=== PATIENT | male | born 1940 | race Caucasian/White ===

== ENCOUNTER → 2017-06-18 17:29 | Outpatient (CLI) | payer MEDICARE, OTHER, SELFPAY | PROVIDERS: Family Provider Family Medicine Geriatric Medicine; PCP Family Medicine Geriatric Medicine; Visit Provider Family Medicine Geriatric Medicine | DX: R50.9 Fever, unspecified (principal) | CPT/HCPCS: 87633 ==

== ENCOUNTER → 2017-07-08 13:40 | Outpatient (CLI) | payer MEDICARE, SELFPAY ==
--- NOTE | 2017-07-08 13:59 | EKG12_ITS ---
Test Reason : CP Blood Pressure : / mmHG Vent. Rate : 081 BPM Atrial Rate : 081 BPM P-R Int : 212 ms QRS Dur : 084 ms QT Int : 356 ms P-R-T Axes : 049 -21 050 degrees QTc Int : 413 ms Sinus rhythm with 1st degree A-V block with occasional Premature ventricular complexes Minimal voltage criteria for LVH, may be normal variant Borderline ECG Confirmed by FAITH BEAUCHAMP ([id number]), general expeditor WOODY FORD ([id number] on 07/08/2017 2:43:04 PM Referred By: Kain Bhakta Confirmed By:FAITH BEAUCHAMP
== END ==
PROVIDERS: Family Provider Family Medicine Geriatric Medicine; PCP Family Medicine Geriatric Medicine; Visit Provider Family Medicine Geriatric Medicine
DX: R07.9 Chest pain, unspecified (principal)
CPT/HCPCS: 93005

== ENCOUNTER → 2017-07-08 14:05 | Outpatient (CLI) | payer MEDICARE, SELFPAY ==
[2017-07-08 17:22] LABS: Absolute Lymphocyte Count 1.62 X10^3/ul (0.83-4.51); Absolute Neutrophil Count 4.8 X10^3/uL (2.0-7.7); Basophil# 0.03 X10^3/uL; Basophil% 0.4 % (0-1); Eosinophil# 0.22 X10^3/uL; Eosinophils% 3.1 % (0-5); Hematocrit 36.9 % (40-54); Hemoglobin 12.3 g/dl (13.0-16.5); Lymphocyte # 1.62 X10^3/ul (4.0); Mean Corp Hgb Conc 33.3 g/gl (32-36); Mean Corpuscular Hgb 30.8 pg (27.0-32.0); Mean Corpuscular Volume 92.3 fL (80-94); Mean Platelet Vol. 10.6 fl (6.2-12.0); Monocyte# 0.36 X10^3/uL; Monocyte% 5.1 % (0-10); Neutrophil % 68.3 % (47-70); Platelet Count 135 K/mm3 (150-450); RBC Distribution Width CV 12.8 % (11.6-14.6); RBC Distribution Width SD 41.9 fl (35.1-43.9)
[2017-07-08 17:31] LABS: POSITIVE COUNT NO; POSITIVE DIFFERENTIAL NO; POSITIVE MORPHOLOGY NO; Vitamin D,25 Hydroxy 45.8 ng/mL (19.95-100.01)
[2017-07-08 17:42] LABS: ALB/GLOB Ratio 0.9 RATIO (0.9-2.4); AST(SGOT) 16 U/L (15-37); Alanine Aminotransfer ALT/SGPT 23 U/L (16-61); Albumin, Serum 3.4 g/dL (3.2-5.0); Alkaline Phosphatase 72 U/L (45-117); Anion Gap 8 (5-15); BUN 21 mg/dL (7-18); BUN/Creat Ratio 15.8 RATIO (10-20); Calcium,Total 8.3 mg/dL (8.5-10.1); Chloride 102 mmol/L (98-107); Creatinine, Serum 1.33 mg/dL (0.70-1.30); EST Glomerular Filtration Rate 55 mL/min (>60); Est Glom Filt Rate - Afr Amer 67 mL/min (>60); Globulin 3.9 g/dL (2.2-4.2); Glucose 377 mg/dL (74-106); Potassium 4.4 mmol/L (3.5-5.1); Protein, Total 7.3 g/dL (6.4-8.2); Sodium Level 135 mmol/L (136-145); Thyroid Stim Hormone (TSH) 2.45 uIU/mL (0.358-3.74)
== END ==
PROVIDERS: Family Provider Family Medicine Geriatric Medicine; PCP Family Medicine Geriatric Medicine; Visit Provider Family Medicine Geriatric Medicine
DX: E11.9 Type 2 diabetes mellitus without complications (principal); I10 Essential (primary) hypertension; E55.9 Vitamin D deficiency, unspecified
CPT/HCPCS: 36415; 80053; 82306; 84443; 85025; 93005

== ENCOUNTER → 2018-03-18 09:37 | Outpatient (CLI) | payer MEDICARE, SELFPAY ==
[2018-03-18 12:40] LABS: Absolute Lymphocyte Count 1.24 X10^3/ul (0.83-4.51); Absolute Neutrophil Count 3.2 X10^3/uL (2.0-7.7); Basophil# 0.02 X10^3/uL; Basophil% 0.4 % (0-1); Eosinophil# 0.17 X10^3/uL; Eosinophils% 3.4 % (0-5); Hematocrit 36.6 % (40-54); Hemoglobin 11.9 g/dl (13.0-16.5); Lymphocyte # 1.24 X10^3/ul (4.0); Lymphocyte % 24.8 % (19-41); Mean Corp Hgb Conc 32.5 g/gl (32-36); Mean Corpuscular Volume 95.3 fL (80-94); Mean Platelet Vol. 10.3 fl (6.2-12.0); Monocyte# 0.35 X10^3/uL; Neutrophil # 3.22 X10^3/uL (2.7-7.7); Neutrophil % 64.4 % (47-70); Platelet Count 148 K/mm3 (150-450); RBC Distribution Width SD 46.8 fl (35.1-43.9); Red Blood Count 3.84 M/mm3 (4.6-6.2)
[2018-03-18 12:44] LABS: POSITIVE COUNT NO; POSITIVE DIFFERENTIAL NO; POSITIVE MORPHOLOGY NO
[2018-03-18 13:00] LABS: Vitamin D,25 Hydroxy 52.9 ng/mL (29.95-100.01)
[2018-03-18 13:02] LABS: ALB/GLOB Ratio 0.9 RATIO (0.9-2.4); AST(SGOT) 24 U/L (15-37); Alanine Aminotransfer ALT/SGPT 24 U/L (16-61); Albumin, Serum 3.6 g/dL (3.2-5.0); Alkaline Phosphatase 65 U/L (45-117); Anion Gap 7 (5-15); BUN 15 mg/dL (7-18); BUN/Creat Ratio 11.2 RATIO (10-20); Calcium,Total 8.2 mg/dL (8.5-10.1); Chloride 108 mmol/L (98-107); Cholesterol 101 mg/dL (200); Creatinine, Serum 1.34 mg/dL (0.70-1.30); EST Glomerular Filtration Rate 55 mL/min (>60); Est Glom Filt Rate - Afr Amer 66 mL/min (>60); Globulin 3.8 g/dL (2.2-4.2); Glucose 188 mg/dL (74-106); High Density Lipoprotein 36 mg/dL; Potassium 4.2 mmol/L (3.5-5.1); Protein, Total 7.4 g/dL (6.4-8.2); Sodium Level 142 mmol/L (136-145); Thyroid Stim Hormone (TSH) 2.56 uIU/mL (0.358-3.74); Triglycerides 116 mg/dL; Very Low Density Lipoprotein 23 mg/dL (5-40)
== END ==
PROVIDERS: Family Provider Family Medicine Geriatric Medicine; PCP Family Medicine Geriatric Medicine; Visit Provider Family Medicine Geriatric Medicine
DX: E11.9 Type 2 diabetes mellitus without complications (principal); E55.9 Vitamin D deficiency, unspecified; E78.49 Other hyperlipidemia; F52.8 Other sexual dysfunction not due to a substance or known physiological condition; I10 Essential (primary) hypertension
CPT/HCPCS: 36415; 80053; 80061; 82306; 84403; 84443; 85025

== ENCOUNTER → 2018-07-13 09:47 | Outpatient (CLI) | payer MEDICARE, SELFPAY ==
[2018-07-13 11:02] LABS: Absolute Lymphocyte Count 1.59 X10^3/ul (0.83-4.51); Absolute Neutrophil Count 3.4 X10^3/uL (2.0-7.7); Basophil# 0.02 X10^3/uL; Basophil% 0.4 % (0-1); Eosinophil# 0.22 X10^3/uL; Eosinophils% 3.9 % (0-5); Hematocrit 36.6 % (40-54); Hemoglobin 12.1 g/dl (13.0-16.5); Lymphocyte # 1.59 X10^3/ul (4.0); Lymphocyte % 28.2 % (19-41); Mean Corp Hgb Conc 33.1 g/gl (32-36); Mean Corpuscular Hgb 30.6 pg (27.0-32.0); Mean Corpuscular Volume 92.4 fL (80-94); Mean Platelet Vol. 10.3 fl (6.2-12.0); Monocyte# 0.39 X10^3/uL; Monocyte% 6.9 % (0-10); Neutrophil # 3.42 X10^3/uL (2.7-7.7); Neutrophil % 60.6 % (47-70); Platelet Count 159 K/mm3 (150-450); RBC Distribution Width CV 13.6 % (11.6-14.6); RBC Distribution Width SD 45.9 fl (35.1-43.9); Red Blood Count 3.96 M/mm3 (4.6-6.2); White Blood Count 5.6 K/mm3 (4.4-11.0)
[2018-07-13 11:03] LABS: POSITIVE COUNT NO; POSITIVE DIFFERENTIAL NO; POSITIVE MORPHOLOGY NO
[2018-07-13 11:25] LABS: ALB/GLOB Ratio 0.9 RATIO (0.9-2.4); AST(SGOT) 22 U/L (15-37); Alanine Aminotransfer ALT/SGPT 20 U/L (16-61); Albumin, Serum 3.6 g/dL (3.2-5.0); Alkaline Phosphatase 78 U/L (45-117); Anion Gap 7 (5-15); BUN 21 mg/dL (7-18); BUN/Creat Ratio 15.3 RATIO (10-20); CPK Total, Creatine Kinase 184 U/L (39-308); Calcium,Total 8.1 mg/dL (8.5-10.1); Chloride 106 mmol/L (98-107); Cholesterol 100 mg/dL (200); Creatinine, Serum 1.37 mg/dL (0.70-1.30); EST Glomerular Filtration Rate 53 mL/min (>60); Est Glom Filt Rate - Afr Amer 65 mL/min (>60); Globulin 3.9 g/dL (2.2-4.2); Glucose 118 mg/dL (74-106); High Density Lipoprotein 40 mg/dL; Potassium 4.1 mmol/L (3.5-5.1); Protein, Total 7.5 g/dL (6.4-8.2); Sodium Level 138 mmol/L (136-145); Thyroid Stim Hormone (TSH) 2.68 uIU/mL (0.358-3.74); Triglycerides 68 mg/dL; Very Low Density Lipoprotein 14 mg/dL (5-40)
[2018-07-13 11:30] LABS: Vitamin D,25 Hydroxy 45.8 ng/mL (29.95-100.01)
[2018-07-14 12:22] LABS: Myoglobin, Serum 88 ng/mL (28-72)
== END ==
PROVIDERS: Family Provider Family Medicine Geriatric Medicine; PCP Family Medicine Geriatric Medicine; Visit Provider Family Medicine Geriatric Medicine
DX: R07.9 Chest pain, unspecified (principal)
CPT/HCPCS: 36415; 80053; 80061; 82306; 82550; 83874; 84403; 84443; 84484; 85025

== ENCOUNTER 2018-07-13 10:56 | Observation (INO) | payer MEDICARE, SELFPAY ==
[2018-07-13] VITALS (15 sets, daily range): BP systolic 143–183; BP diastolic 74–90; PULSE 62–104; RESP 14–22; TEMP 36.5–36.7; O2SAT 94–98; BMI 32.8; BMI 33.0; BMI 32.9
--- NOTE | 2018-07-13 11:30 | RAD_ITS ---
STUDY: X-RAY CHEST REASON FOR EXAM: Male, 77 years old. Chest pressure and chest pain. TECHNIQUE: Single AP portable view of the chest. COMPARISON: Comparison is made with prior study July 23, 2015. FINDINGS: EKG electrodes are seen. Scattered calcified granulomas. Findings suggest some mild scarring at the lung bases. There is no demonstrated pleural abnormality. There is moderate cardiac enlargement. Normal mediastinum and shiva. Normal visualized pulmonary arteries. There is atherosclerotic calcification of the aortic arch with tortuosity. Normal visualized thoracic spine. Normal visualized ribs, clavicles, and shoulders. There is no demonstrated abnormality of the visualized soft tissue structures of the upper abdomen. RAD/Chest 1 View (Portable) IMPRESSION: Cardiomegaly. Findings suggest mild stable bibasilar atelectasis. Electronically Signed: Berlin Webb, at 12:52 EST , Service support ,
--- NOTE | 2018-07-13 11:30 | EKG12_ITS ---
Test Reason : EKGCHANGES Blood Pressure : / mmHG Vent. Rate : 066 BPM Atrial Rate : 066 BPM P-R Int : 182 ms QRS Dur : 082 ms QT Int : 402 ms P-R-T Axes : 012 -25 039 degrees QTc Int : 421 ms Sinus rhythm with occasional Premature ventricular complexes Minimal voltage criteria for LVH, may be normal variant Septal infarct , age undetermined Abnormal ECG Confirmed by MAIK EVANS, ROLANDO ([id number]), editorial clerk LANDRY BAKER ([id number]) on 07/15/2018 3:49:11 PM Referred By: Afsaneh Kapoor Confirmed By:ROLANDO PLEITEZ MD
--- NOTE | 2018-07-13 11:42 | ED.VISSUMM ---
- ER Visit Summary Date of Service: 07/13/18 Chief Complaint: Chest pain History of Present Illness: The patient is a 77 M presenting with chest pain. This has been intermittent pressure since last night. Pressure is substernal. At worst it is 5 out of 10. Currently 0 out of 10. He has associated nausea and lightheadedness. He has a history of hypertension, diabetes, hypercholesterolemia, previous smoking. He had a heart cath 20 years ago which was unremarkable. He was seen by his primary care physician today and sent to the ED for further evaluation. Physical Examination: Vitals are stable. Patient is afebrile. Alert no acute distress. HEENT exam is unremarkable. Neck is supple. Lungs are wheezing bilaterally. Heart is regular rate and rhythm. Abdomen is soft nontender nondistended. Extremities are unremarkable. Skin is warm and dry. No focal neurologic deficit. Remainder of exam is unremarkable. Emergency Department Course and Treatment: Patient was given aspirin on arrival. EKG is sinus rate of 66 with LVH. He was given albuterol, Atrovent aerosol. CBC normal except for hemoglobin 12.1. Chemistries show BUN 21, creatinine 1.37, glucose 118. Troponin is negative. Chest x-ray shows cardiomegaly, atelectasis. Patient is pain-free on reevaluation. Will discuss with hospitalist for observation. Disposition: Observation Impression: Chest pain This note was generated with [employer] dictation software. It may contain incorrect words, spelling, and punctuation that were not noted in review of the chart prior to signing ED Disposition - Plan for ED Patient: Referrals: Kain Bhakta Chi, MD [Primary Care Provider] -
[2018-07-13] MEDS: Aspirin 81 MG TAB.CHEW 324 MG PO (11:44)
--- NOTE | 2018-07-13 11:49 | EKG12_ITS ---
Test Reason : CHEST PRESSURE Blood Pressure : / mmHG Vent. Rate : 070 BPM Atrial Rate : 070 BPM P-R Int : 178 ms QRS Dur : 092 ms QT Int : 402 ms P-R-T Axes : 014 -26 041 degrees QTc Int : 434 ms Sinus rhythm with occasional and consecutive Premature ventricular complexes Minimal voltage criteria for LVH, may be normal variant Abnormal ECG Confirmed by MAIK EVANS, ROLANDO ([id number]), content editor LANDRY BAKER ([id number]) on 07/15/2018 3:49:38 PM Referred By: Afsaneh Kapoor Confirmed By:ROLANDO PLEITEZ MD
[2018-07-13] MEDS: Ipratropium/Albuterol Sulfate 3 ML AMPUL.NEB INHALATION ×2 (12:12→18:48)
--- NOTE | 2018-07-13 13:20 | PCM.HP.STD ---
Problem List (1) COPD exacerbation Status: Acute (2) Chest pain Status: Acute Qualifiers: Chest pain type: unspecified Qualified Code(s): R07.9 - Chest pain, unspecified (3) Former tobacco use Status: Chronic (4) HTN (hypertension) Status: Chronic Qualifiers: Hypertension type: essential hypertension Qualified Code(s): I10 - Essential (primary) hypertension (5) HLD (hyperlipidemia) Status: Chronic Qualifiers: Hyperlipidemia type: pure hypercholesterolemia Qualified Code(s): E78.00 - Pure hypercholesterolemia, unspecified; E78.0 - Pure hypercholesterolemia (6) Diabetes mellitus, type II Status: Chronic Qualifiers: Diabetes mellitus exterminator helper insulin use: without exterminator helper use Diabetes mellitus complication status: with unspecified complications Qualified Code(s): E11.8 - Type 2 diabetes mellitus with unspecified complications (7) Obesity (BMI 30.0-34.9) Status: Chronic (8) CKD (chronic kidney disease) stage 3, GFR 30-59 ml/min Status: Chronic (9) Anemia Status: Chronic Qualifiers: Anemia type: unspecified type Qualified Code(s): D64.9 - Anemia, unspecified History of Present Illness Date of Admission: 07/13/18 Chief Complaint: Chest pain, Recent Mild URI The patient is a 77 y/o M w/ PMHx: HTN, HLD, Obesity, Former Tobacco use, Diabetes mellitus type II, CKD stage III, Chronic Anemia who presents to the [facility] ED on 07/13/18 with history of recent mild URI with rhinorrhea and per daughter evidence of some mild increased work of breathing occasionally with wheezing noted on initial ED evaluation in addition to complaints of midsternal chest pressure with associated nausea as well as lightheadedness with onset since the evening prior noted to be intermittent, lasting minutes with no clear alleviating or aggravating factors prompting eventual ED presentation. Patient noted chest discomfort rated at its worst 4-5 out of 10 and upon ED evaluation had resolved. In the ED workup included T 98.1, heart rate 67, BP 155/90, respiratory rate 16, 95% on room air, CBC with W BC 5.6, hemoglobin 12.1, platelet 159 without market shift, BMP with BUN/Cr 21/1.37, Nikita 118, troponin < 0.015, EKG w/ EKG with T wave flattening minimally, CXR without acute cardiopulmonary findings. In the ED patient sap pp consultant normal saline, Solu-Medrol 125 mg IV x1, aspirin. (10) DVT Prophylaxis: SCDs, heparin. Past Medical History Past Medical History (Chronic Problems): Chronic Problems Former tobacco use (Chronic) HTN (hypertension) (Chronic) HLD (hyperlipidemia) (Chronic) Diabetes mellitus, type II (Chronic) Obesity (BMI 30.0-34.9) (Chronic) CKD (chronic kidney disease) stage 3, GFR 30-59 ml/min (Chronic) Anemia (Chronic) Former cigarette smoker (Chronic) painful soft tissue mass back (Chronic) 1.5 cm infected painful soft tissue mass right upper lateral back by the shoulder, and 1.5 cm painful soft tissue mass right posterior axillary/lateral back area, superior, and 1 cm painful soft tissue mass right posterior axillary/lateral back area, inferior. Allergies No Known Allergies Allergy (Verified 07/13/18 11:03) Home Medications: Ambulatory Orders Medication Instructions Recorded Atorvastatin Calcium [Lipitor] 40 mg PO QHS 01/31/15 Carvedilol [Coreg (Beta Marisa)] 3.125 mg PO BID 01/31/15 Cyanocobalamin (Vitamin B-12) 500 mcg PO DAILY PRN PRN 01/31/15 [Vitamin B-12] Glimepiride [Amaryl] 4 mg PO DAILY 01/31/15 Isosorbide Mononitrate [Imdur] 60 mg PO DAILY 01/31/15 Losartan Potassium [Cozaar] 25 mg PO DAILY 01/31/15 Terazosin HCl [Hytrin] 2 mg PO QHS 01/31/15 Cholecalciferol (Vitamin D3) 2,000 unit PO DAILY 07/13/18 [Vitamin D3] Famotidine 40 mg PO DAILY 07/13/18 Gabapentin [Neurontin] 300 mg PO QHS 07/13/18 Melatonin 10 mg PO DAILY PRN 07/13/18 Surgical History: - - Fatty tumor resection on the posterior neck, appendectomy. Psychiatric History: No pertinent psych hx Lives: Alone Smoking Status: Former smoker - Patient quit smoking approximately 20-25 years prior but prior to this had smoked approximately 1.5 pack/day at least since use. Tobacco Use: Non-smoker Alcohol: None Drugs: None - *Family History Maternal History Items: - - Patient notes a maternal and paternal family history of heart disease and diabetes. Paternal History Items: - - Patient notes a maternal and paternal family history of heart disease and diabetes. Review of Systems Constitutional: Reports: Malaise, Weakness, Fatigue. Denies: Chills, Fever, Weight Change HEENT: Reports: Nasal Congestion, Post Nasal Drip. Denies: Head Aches, Sinus Congestion, Sinus Drainage Cardiovascular: Reports: Chest Pain, Chest Pressure. Denies: Palpitations Respiratory: Reports: Shortness of Breath, Wheezing. Denies: Cough, Shortness of breath at rest, Shortness of breath upon exertion, Sputum production Gastrointestinal: Reports: Nausea. Denies: Abdominal Pain, Vomiting Genitourinary: Denies: Dysuria Musculoskeletal: Denies: Joint Pain, Joint Tenderness Skin: Denies: Rash, Wounds Neurological: Denies: Numbness, Tingling, Focal weakness Psychiatric: Denies: Anxiety, Depression, Homicidal Ideations, Suicidal Ideations Hematologic/ Lymphatic: Reports: Anemia. Denies: Easy Bruising, Easy Bleeding VTE Information - Inpt Only VTE Present on Admission: No VTE Mechan Device Prophylaxis: SCD's VTE Pharm Prophylaxis ordered?: Yes Patient Problems: Active and Suspected Problems COPD exacerbation (Acute) Chest pain (Acute) Subjective: Seated upright in the ED bed, notes improved breathing following aerosols in the ED, currently denies chest pain. Objective: Physical Examination: General: awake, alert, oriented x 3 and cooperative, seated upright in the ED bed in no apparent distress currently, notes chest pain resolved currently, dyspnea improved. Skin: normal color, turgor, no icterus, cyanosis. HEENT: AT/NC, EOMI, PERRLA, mildly dry MM, no carotid bruits or JVD noted. Lungs: Diminished BS bases, mild end expiratory wheeze, mildly increased effort, notes improved since initial presentation, no rales or ronchi. Heart: Regular rate and rhythm; no gallop, rub audible. Abdomen: soft, obese, NTTP, ND, normal BS, no HSM. Extremities: no cyanosis, clubbing, or edema. Neurological: patient awake, alert, oriented x 3; cognitive function intact; pupils equally reactive to light and accomodation; cranial nerves II-XII grossly normal, moving all 4 extremities, no focal deficits, strength mildly to moderately globally decreased secondary to acute presentation. Psychiatric: affect appears mildly fatigued, no acute evidence of depressive or anxiety feelings. - Physical Exam Vital Signs Temp Pulse Resp BP Pulse Ox 98.1 F 62 17 183/84 H 95 07/13/18 10:57 07/13/18 13:16 07/13/18 13:16 07/13/18 13:16 07/13/18 13:16 Oxygen Flow Rate (L/min) 2 Oxygen Delivery Method Nasal Cannula Weight: 203 lb 11.314 oz Body Mass Index (BMI) 32.8 Laboratory Tests Past 24 Hrs 07/13/18 11:50 Troponin I < 0.015 Assessment/Plan All Active Problems COPD exacerbation (Acute) Chest pain (Acute) The patient is a 77 y/o M w/ PMHx: HTN, HLD, Obesity, Former Tobacco use, Diabetes mellitus type II, CKD stage III, Chronic Anemia who presents to the [facility] ED on 07/13/18 with history of recent mild URI with rhinorrhea and per daughter evidence of some mild increased work of breathing occasionally with wheezing noted on initial ED evaluation in addition to complaints of midsternal chest pressure with associated nausea as well as lightheadedness with onset since the evening prior noted to be intermittent, lasting minutes with no clear alleviating or aggravating factors prompting eventual ED presentation. (1) Chest Pain: ED workup included T 98.1, heart rate 67, BP 155/90, respiratory rate 16, 95% on room air, CBC with W BC 5.6, hemoglobin 12.1, platelet 159 without market shift, BMP with BUN/Cr 21/1.37, Nikita 118, troponin < 0.015, EKG w/ EKG with T wave flattening minimally, CXR without acute cardiopulmonary findings. Will admit to PCU, place on a monitored bed to assure no acute myocardial infarction with serial cardiac enzymes and EKGs. If remains clinically appropriate with unremarkable repeat EKGs and enzymes will proceed with AM cardiac stress testing. As noted mild #2, if worsens may need to defer stress testing. ASA, NG, morphine. FLP in AM. Mag pending. (2) Suspected Possible Acute on chronic COPD exacerbation versus Acute Viral Bronchitis w/ recent URI sxs: CXR w/ chronic changes, CBC on admission w/ WBC 5.6 without shift, afebrile, wheezing in the ED, improved w/ aerosols, prolonged heavy tobacco use history. Will maintain on oxygen with wean as tolerated to room air, continue ATC duonebs, PRN albuterol, prednisone burst, HOB, IS parameters, requested respiratory viral panel and sputum cultures. (3) Diabetes mellitus type II: Hold oral home regimen, HgbA1c pending, ADA diet, accu checks w/ ISS, nutrition consulted for education and teaching. (4) Chronic Kidney Disease Stage III: Admission BUN/Cr 21/1.37, baseline renal function 1.3, repeat BMP in AM. (5) Anemia, Normocytic, Chronic: Admission Hgb 12.1, baseline appears similar, unclear etiology, defer to outpatient. (6) Hypertension: Continue home regimen including Coreg, isosorbide, losartan, PRN hydralazine. (7) Hyperlipidemia: Continue home statin regimen. AM FLP. (8) Obesity: Weight loss and lifestyle changes encouraged, nutrition consulted for education and teaching. (9) Former Tobacco use: Encouraged continued tobacco cessation. (10) DVT Prophylaxis: SCDs, heparin. Code Visit Inpatient E&M: 36097 Init Hosp L3
--- NOTE | 2018-07-13 13:28 | NURSING ---
105 COPD EXAC, CP
--- NOTE | 2018-07-13 13:55 | CASEMGMT ---
Addendum entered by Trinity Will 07/13/18 14:06: [facility] and [facility] MIRTHA Avery Original Note: RN CM Assessment Introduced role of RN CM to patient. Patient is alert, oriented and able to participate in RN CM Assessment. Care providers, pharmacy, and demographics verified. Presentation:Admitted for COPD Exacerbation, CP. CC: CP, N/V/Lightheaded. PCP: Dr Kain Bhakta Specialists: None Preferred Pharmacy: [facility] Insurance: [employer] Medicare PPO Prescription Benefit: Yes LNOK: Gaye Schuster Living Arrangements: Patient lives alone on ground level apartment. Independent with ADL's and ambulation. Daughter Mariely lives near which can assist in future care needs if needed, she works at [employer]. Transportation: Patient drives and drove to hospital, plans to drive self on DC. DME: Denies DME and states no preference to DME Company. HHC: Denies past HH, States has had [facility] send a field nurse to his home in the past. Denies preference on HH Agency. SNF: Denies past and states no preference on facility. DC PLAN: Home with possible nebulizer. MIRTHA Avery
[2018-07-13] MEDS: MethylPREDNISolone 125 MG/2 ML Vial IV (14:12)
--- NOTE | 2018-07-13 15:24 | EKG12_ITS ---
Test Reason : CP Blood Pressure : / mmHG Vent. Rate : 064 BPM Atrial Rate : 064 BPM P-R Int : 228 ms QRS Dur : 086 ms QT Int : 398 ms P-R-T Axes : 041 -24 040 degrees QTc Int : 410 ms Sinus rhythm with 1st degree A-V block with occasional Premature ventricular complexes Moderate voltage criteria for LVH, may be normal variant Borderline ECG When compared with ECG of 08-JUL-2017 14:09, No significant change was found Confirmed by MAIK EVANS, ROLANDO ([id number]), newspaper copy editor LANDRY ABKER ([id number]) on 07/15/2018 4:01:03 PM Referred By: Afsaneh Kapoor Confirmed By:ROLANDO PLEITEZ MD
[2018-07-13 15:58] LABS: Magnesium 1.9 mg/dL (1.6-2.6)
[2018-07-13 16:13] LABS: Hemoglobin A1c 6.4 % (4.2-6.3)
[2018-07-13 17:46] LABS: Bedside Glucose 152 mg/dL (70-110)
[2018-07-13] MEDS: 0.9% NaCl Peripheral Flush Adult/Peds IV (20:39)
[2018-07-13] MEDS: Atorvastatin Calcium 40 MG Tablet PO (22:32)
[2018-07-13] MEDS: Gabapentin 300 MG Capsule PO (22:32)
[2018-07-13] MEDS: Carvedilol 3.125 MG TABLET PO (22:32)
[2018-07-13] MEDS: Acetaminophen 325 MG Tablet 650 MG PO (22:34)
[2018-07-13] MEDS: Heparin Injection (Vial) 5,000 UNIT/ML VIAL 5000 UNIT SC (22:34)
[2018-07-13] MEDS: MELATONIN 10 MG TABLET PO (22:34)
[2018-07-13 22:50] LABS: Bedside Glucose 358 mg/dL (70-110)
[2018-07-14] VITALS (10 sets, daily range): BP systolic 157–180; BP diastolic 73–107; PULSE 75–91; RESP 18; TEMP 36.4–37; O2SAT 93–95
[2018-07-14] MEDS: 0.9% Normal Saline 1,000 ML 100 ML IV (00:28)
[2018-07-14] MEDS: hydrALAZINE 20 MG/ML Vial 10 MG IV ×2 (01:26→06:20)
[2018-07-14 05:23] LABS: Hematocrit 38.7 % (40-54); Hemoglobin 12.7 g/dl (13.0-16.5); Mean Corp Hgb Conc 32.8 g/gl (32-36); Mean Corpuscular Hgb 30.6 pg (27.0-32.0); Mean Corpuscular Volume 93.3 fL (80-94); Platelet Count 162 K/mm3 (150-450); RBC Distribution Width SD 43.3 fl (35.1-43.9); Red Blood Count 4.15 M/mm3 (4.6-6.2); White Blood Count 8.9 K/mm3 (4.4-11.0)
[2018-07-14 05:43] LABS: ALB/GLOB Ratio 0.9 RATIO (0.9-2.4); AST(SGOT) 21 U/L (15-37); Alanine Aminotransfer ALT/SGPT 19 U/L (16-61); Albumin, Serum 3.5 g/dL (3.2-5.0); Alkaline Phosphatase 78 U/L (45-117); Anion Gap 11 (5-15); BUN 25 mg/dL (7-18); BUN/Creat Ratio 17.7 RATIO (10-20); Calcium,Total 8.3 mg/dL (8.5-10.1); Chloride 108 mmol/L (98-107); Cholesterol 111 mg/dL (200); Creatinine, Serum 1.41 mg/dL (0.70-1.30); EST Glomerular Filtration Rate 52 mL/min (>60); Est Glom Filt Rate - Afr Amer 63 mL/min (>60); Estimated Creatinine Clearance 39.59 ml/min; Glucose 207 mg/dL (74-106); High Density Lipoprotein 45 mg/dL; Potassium 3.8 mmol/L (3.5-5.1); Protein, Total 7.5 g/dL (6.4-8.2); Sodium Level 143 mmol/L (136-145); Triglycerides 50 mg/dL; Very Low Density Lipoprotein 10 mg/dL (5-40)
[2018-07-14 05:44] LABS: Scan Indicated on CBC? Y/N NO
[2018-07-14 05:54] LABS: International Normalized Ratio 1.2; Prothrombin Time (Protime)PT. 14.6 SECONDS (11.7-14.9)
[2018-07-14 05:55] LABS: Partial Thromboplast Time 37.2 Seconds (24.1-36.2)
--- NOTE | 2018-07-14 05:55 | EKG12_ITS ---
Test Reason : AM EKG Blood Pressure : / mmHG Vent. Rate : 080 BPM Atrial Rate : 080 BPM P-R Int : 236 ms QRS Dur : 094 ms QT Int : 380 ms P-R-T Axes : 044 -29 050 degrees QTc Int : 438 ms Sinus rhythm with 1st degree A-V block with occasional Premature ventricular complexes Moderate voltage criteria for LVH, may be normal variant Borderline ECG When compared with ECG of 13-JUL-2018 15:38, MANUAL COMPARISON REQUIRED, DATA IS UNCONFIRMED Confirmed by MAIK EVANS, ROLANDO ([id number]), features editor LANDRY BAKER ([id number]) on 07/15/2018 4:07:17 PM Referred By: Afsaneh Kapoor Confirmed By:ROLANDO PLEITEZ MD
[2018-07-14] MEDS: Losartan Potassium 25 MG Tablet PO (06:13)
[2018-07-14] MEDS: Aspirin E.C. 81 MG Tablet PO (06:13)
[2018-07-14] MEDS: Famotidine 20 MG Tablet 40 MG PO (06:14)
[2018-07-14 06:41] LABS: Bedside Glucose 196 mg/dL (70-110)
--- NOTE | 2018-07-14 07:36 | PN_ITS ---
Patient Problems: Active and Suspected Problems COPD exacerbation (Acute) Chest pain (Acute) Subjective: Mr. Shook is a 77-year-old male with a past medical history of hypertension, hyperlipidemia, obesity, diabetes mellitus type 2, chronic kidney disease stage III, former smoking history and chronic anemia who presented to the ED at [facility] on 07/13/[address] Bhakta's office complaining of chest pain, rhinorrhea and shortness of breath. The chest pain was not associated with exertion but, was associated with nausea and lightheadedness. Vital signs of presentation to the emergency room were temp 98.1, heart rate 67, blood pressure 155/90, respiratory rate 16 and he was 95% saturated on room air. White blood cell count was within normal limits with an unremarkable differential. Hemoglobin was 12.1 with normochromic normocytic indices and a normal RDW. Platelets were within normal limits. The BUN was 21 with a creatinine of 1.37. Troponin was less than 0.015. The EKG showed T wave flattening. Test x-ray showed no infiltrates, pleural effusions or pulmonary vascular congestion but did show atelectasis in the bases and significant cardiomegaly. On physical examination in the emergency department the patient had wheezing bilaterally and he was given Solu-Medrol, aspirin and intravenous fluids. He was admitted to a monitored bed on PCU. All events the past 24 hours been reviewed. Afebrile since admission Blood pressures have been uncontrolled and have ranged from 143/78 to 170/107. He is 95% on room air. All lab was personally reviewed. White blood cell count remains normal at 8.9. Hemoglobin is 12.7 and platelets are normal. The BUN is 25 with a creatinine of 1.41 and his baseline over the past 18 months has ranged from 1.25-1.41. Hemoglobin A1c was 6.4. Mag was normal at 1.9. LFTs are within normal limits. Triglycerides are 50 and the LDL is 56 with an HDL of 45. Serial cardiac enzymes were negative. He has been scheduled for a stress test this morning. - Physical Exam Vital Signs Temp Pulse Resp BP Pulse Ox 97.8 F 85 18 180/97 H 95 07/14/18 06:08 07/14/18 06:20 07/14/18 06:08 07/14/18 06:20 07/14/18 06:08 Oxygen Flow Rate (L/min) 2 Oxygen Delivery Method Room Air Weight: 204 lb 5.896 oz Body Mass Index (BMI) 33.0 Intake and Output for Last 24 Hours 07/12/18 07/13/18 07/14/18 23:59 23:59 23:59 Intake Total 450 / 450 1320 / 1320 Balance 450 / 450 1320 / 1320 Laboratory Tests Past 24 Hrs 07/13/18 07/13/18 07/13/18 11:50 11:50 15:40 WBC RBC Hgb Hct MCV MCH MCHC RDW RDW Differential Plt Count MPV PT INR APTT Sodium Potassium Chloride Carbon Dioxide Anion Gap BUN Creatinine Estim Creat Clear Calc Est GFR (MDRD) Af Amer Est GFR (MDRD) Non-Af BUN/Creatinine Ratio Glucose Hemoglobin A1c 6.4 H Calcium Magnesium 1.9 Total Bilirubin AST ALT Alkaline Phosphatase Troponin I < 0.015 Total Protein Albumin Globulin Albumin/Globulin Ratio Triglycerides Cholesterol LDL Cholesterol VLDL Cholesterol HDL Cholesterol 07/13/18 07/13/18 07/14/18 15:40 20:25 05:10 WBC 8.9 RBC 4.15 L Hgb 12.7 L Hct 38.7 L MCV 93.3 MCH 30.6 MCHC 32.8 RDW 13.0 RDW Differential 43.3 Plt Count 162 MPV 10.0 PT INR APTT Sodium Potassium Chloride Carbon Dioxide Anion Gap BUN Creatinine Estim Creat Clear Calc Est GFR (MDRD) Af Amer Est GFR (MDRD) Non-Af BUN/Creatinine Ratio Glucose Hemoglobin A1c Calcium Magnesium Total Bilirubin AST ALT Alkaline Phosphatase Troponin I < 0.015 < 0.015 Total Protein Albumin Globulin Albumin/Globulin Ratio Triglycerides Cholesterol LDL Cholesterol VLDL Cholesterol HDL Cholesterol 07/14/18 07/14/18 05:10 05:10 WBC RBC Hgb Hct MCV MCH MCHC RDW RDW Differential Plt Count MPV PT 14.6 INR 1.2 APTT 37.2 H Sodium 143 Potassium 3.8 Chloride 108 H Carbon Dioxide 24.0 Anion Gap 11 BUN 25 H Creatinine 1.41 H Estim Creat Clear Calc 39.59 Est GFR (MDRD) Af Amer 63 Est GFR (MDRD) Non-Af 52 L BUN/Creatinine Ratio 17.7 Glucose 207 H Hemoglobin A1c Calcium 8.3 L Magnesium Total Bilirubin 0.40 AST 21 ALT 19 Alkaline Phosphatase 78 Troponin I Total Protein 7.5 Albumin 3.5 Globulin 4.0 Albumin/Globulin Ratio 0.9 Triglycerides 50 Cholesterol 111 LDL Cholesterol 56 VLDL Cholesterol 10 HDL Cholesterol 45 POC Glucose 07/14/18 07/13/18 07/13/18 06:25 22:30 17:14 POC Glucose 196 H 358 H 152 H Medical Necessity - Tobacco Use Smoking Status: Former smoker - Patient quit smoking approximately 20-25 years prior but prior to this had smoked approximately 1.5 pack/day at least since use. Tobacco Use: Non-smoker Assessment/Plan All Active Problems COPD exacerbation (Acute) Chest pain (Acute)
--- NOTE | 2018-07-14 08:53 | STRESSREP ---
Stress Test Report Exercise myocardial perfusion stress test. 77-year-old man with a history of atypical chest pain. Medications: DuoNeb aspirin Lipitor Cozaar. Stress protocol: Resting EKG demonstrates normal sinus rhythm with a rate of 76 bpm resting blood pressure 184/78 mmHg. Occasional premature ventricular complexes are noted. 0.4 mg of regadenoson was infused per usual protocol followed by rapid intravenous saline flush injection continuous EKG monitoring was performed. The maximum heart rate attained was 99 bpm which was 69% maximum predicted heart rate maximum workload was 1 metabolic equivalent. At rest there were no ST or T wave changes noted suggest abnormal flow reserve at peak infusion nonspecific ST-T wave changes were noted. The resting blood pressure 184/78 with a final blood pressure 170/74 mmHg. Resting hypertension was noted. Myocardial perfusion protocol. 12.0 mCi of technetium 99m sestamibi was injected at rest. 0.4 mg of regadenoson was infused per usual protocol peak infusion 34.3 mCi of technetium 99m sestamibi was injected stress images were obtained stress and rest images were reconstructed and compared in the short axis vertical long horizontal long axis. Gated images were also obtained next Perfusion SPECT analysis: Review of the stress images demonstrate normal uptake of tracer noted in all areas of myocardium. There is significant GI uptake noted with inferior wall attenuation noted. No obvious reversibility is noted suggest ischemia. No previous infarct is noted. Gated SPECT analysis: The gated ejection fraction is 60%. Conclusion: Normal pharmacologic myocardial perfusion stress test. Preserved ejection fraction.
[2018-07-14] MEDS: Doxazosin 1 MG Tablet 2 MG PO (09:51)
[2018-07-14] MEDS: Isosorbide Mononitrate 60 MG Tablet PO (09:52)
[2018-07-14] MEDS: Glimepiride 4 MG Tablet PO (09:52)
[2018-07-14] MEDS: Carvedilol 3.125 MG TABLET PO (09:52)
[2018-07-14] MEDS: predniSONE 20 MG Tablet 40 MG PO (09:53)
--- NOTE | 2018-07-14 11:52 | CASEMGMT ---
Clinicals faxed to [place] transfer center at this time. Barbara ZUNIGA CM
[2018-07-14 12:45] LABS: Bedside Glucose 204 mg/dL (70-110)
--- NOTE | 2018-07-14 15:28 | DCINST_ITS ---
- Discharge Diagnoses Current Active Problems: Current Active and Chronic Problems COPD exacerbation (Acute) Chest pain (Acute) Former tobacco use (Chronic) HTN (hypertension) (Chronic) HLD (hyperlipidemia) (Chronic) Diabetes mellitus, type II (Chronic) Obesity (BMI 30.0-34.9) (Chronic) CKD (chronic kidney disease) stage 3, GFR 30-59 ml/min (Chronic) Anemia (Chronic) You will use the following diet at home:: Calorie/Carbohydrate Controlled (specify 1200, 1400, etc), Cardiac - low salt and low fat, carbohydrate con trolled Your food should be the consistency of: Regular Your liquids should be the consistency of: Regular/Thin Discharge Activity: - - Avoid exposure to any strong smells such as bleach, cleaning products, strong colognes or perfumes, paint fumes and smoke of any kind. Avoid sudden exposure to cold air because this can cause bronchospasm. You may want to cover your mouth when you go outside in the winter. Avoid exposure to anyone who is sick with a cough or sore throat. Call your doctor if you observe: Fever of 101 or Higher, Shortness of breath, Dizziness, Fainting spells, Swelling in the ankles, Chest pain Additional Instructions: 1. The stress test was negative. I think the pain in the chest and the shortness of breath are coming from an exacerbation of some chronic lung disease. You had wheezing when you came to the ED and this has resolved with steroids and inhaled bronchodilators. I have given you a prescription for a steroid to help decrease the inflammation in the lungs and also an inhaler. 2. Your BP is not adequately controlled and this also can cause shortness of breath and chest discomfort. I increased the Coreg ( CArvedilol) to 6.25 mg twice a day. You can take 2 of the 3.125 mg tabs twice a day until they are gone and then start the 6.25 mg tabs. 3. You have a heart murmur and I suspect that your heart does not relax as well as it should....this is associated with high blood pressure. I think you should have an ultrasound of the heart - called a ECHO. I also think you should have a 24 hour heart monitor because you are having an awful lot of premature beats......you can discuss these tests with Dr. Bhakta and I will send a copy of your discharge summary to Dr. Bhakta with my recommendations. Allergies/Adverse Reactions: Allergies No Known Allergies Allergy (Verified 07/13/18 11:03) Medications to take at Discharge Atorvastatin Calcium [Lipitor] 40 mg PO QHS 01/31/15 Cyanocobalamin (Vitamin B-12) [Vitamin B-12] 500 mcg PO DAILY PRN PRN 01/31/15 Glimepiride [Amaryl] 4 mg PO DAILY 01/31/15 Isosorbide Mononitrate [Imdur] 60 mg PO DAILY 01/31/15 Losartan Potassium [Cozaar] 25 mg PO DAILY 01/31/15 Terazosin HCl [Hytrin] 2 mg PO QHS 01/31/15 Cholecalciferol (Vitamin D3) [Vitamin D3] 2,000 unit PO DAILY 07/13/18 Famotidine 40 mg PO DAILY 07/13/18 Gabapentin [Neurontin] 300 mg PO QHS 07/13/18 Melatonin 10 mg PO DAILY PRN 07/13/18 Carvedilol [Coreg] 6.25 mg PO BID #60 tablet 07/14/18 The following prescriptions were given: Carvedilol [Coreg] 6.25 mg PO BID #60 tablet Primary Care Physician: Kain Bhakta Chi, MD [Primary Care Provider] - Please follow up with your Primary Care Physician in: next week Test Results: Test results from this visit will be discussed in further detail at your follow- up appointment, if applicable. Proposed Discharge Date: 07/14/18
--- NOTE | 2018-07-14 15:38 | PCM.DC.SUM ---
Discharge Date and Diagnosis - Problem List Patient Problems: Active and Suspected Problems PVCs (premature ventricular contractions) (Acute) COPD exacerbation (Acute) Chest pain (Acute) Date of Admission: 07/13/18 Date of Discharge: 07/14/18 - Primary Discharge Diagnosis Active and Suspected Problems COPD exacerbation (Acute) Chest pain (Acute) - non-cardiac PVCs (premature ventricular contractions) (Acute) with couplets - Secondary Discharge Diagnosis Chronic Problems Former tobacco use (Chronic) HTN (hypertension) (Chronic) HLD (hyperlipidemia) (Chronic) Diabetes mellitus, type II (Chronic) Obesity (BMI 30.0-34.9) (Chronic) CKD (chronic kidney disease) stage 3, GFR 30-59 ml/min (Chronic) Anemia (Chronic) - etiology unknown Former cigarette smoker (Chronic) painful soft tissue mass back (Chronic) 1.5 cm infected painful soft tissue mass right upper lateral back by the shoulder, and 1.5 cm painful soft tissue mass right posterior axillary/lateral back area, superior, and 1 cm painful soft tissue mass right posterior axillary/lateral back area, inferior. suspected COPD Hospital Course and Treatment Imaging Results: Clinical Impression(s) from Imaging Studies Chest X-Ray 07/13/18 11:30 IMPRESSION: Cardiomegaly. Findings suggest mild stable bibasilar atelectasis. Electronically Signed: Berlin Webb, at 12:52 EST , Service support , Microbiology 07/13/18 15:46 Mucosa - Nose Respiratory Panel (PCR) - Final Laboratory Results - last 24 hr 07/13/18 07/13/18 07/13/18 11:50 15:40 15:40 WBC RBC Hgb Hct MCV MCH MCHC RDW RDW Differential Plt Count MPV PT INR APTT Sodium Potassium Chloride Carbon Dioxide Anion Gap BUN Creatinine Estim Creat Clear Calc Est GFR (MDRD) Af Amer Est GFR (MDRD) Non-Af BUN/Creatinine Ratio Glucose Hemoglobin A1c 6.4 H Calcium Magnesium 1.9 Total Bilirubin AST ALT Alkaline Phosphatase Troponin I < 0.015 Total Protein Albumin Globulin Albumin/Globulin Ratio Triglycerides Cholesterol LDL Cholesterol VLDL Cholesterol HDL Cholesterol POC Glucose 07/13/18 07/13/18 07/13/18 17:14 20:25 22:30 WBC RBC Hgb Hct MCV MCH MCHC RDW RDW Differential Plt Count MPV PT INR APTT Sodium Potassium Chloride Carbon Dioxide Anion Gap BUN Creatinine Estim Creat Clear Calc Est GFR (MDRD) Af Amer Est GFR (MDRD) Non-Af BUN/Creatinine Ratio Glucose Hemoglobin A1c Calcium Magnesium Total Bilirubin AST ALT Alkaline Phosphatase Troponin I < 0.015 Total Protein Albumin Globulin Albumin/Globulin Ratio Triglycerides Cholesterol LDL Cholesterol VLDL Cholesterol HDL Cholesterol POC Glucose 152 H 358 H 07/14/18 07/14/18 07/14/18 05:10 05:10 05:10 WBC 8.9 RBC 4.15 L Hgb 12.7 L Hct 38.7 L MCV 93.3 MCH 30.6 MCHC 32.8 RDW 13.0 RDW Differential 43.3 Plt Count 162 MPV 10.0 PT 14.6 INR 1.2 APTT 37.2 H Sodium 143 Potassium 3.8 Chloride 108 H Carbon Dioxide 24.0 Anion Gap 11 BUN 25 H Creatinine 1.41 H Estim Creat Clear Calc 39.59 Est GFR (MDRD) Af Amer 63 Est GFR (MDRD) Non-Af 52 L BUN/Creatinine Ratio 17.7 Glucose 207 H Hemoglobin A1c Calcium 8.3 L Magnesium Total Bilirubin 0.40 AST 21 ALT 19 Alkaline Phosphatase 78 Troponin I Total Protein 7.5 Albumin 3.5 Globulin 4.0 Albumin/Globulin Ratio 0.9 Triglycerides 50 Cholesterol 111 LDL Cholesterol 56 VLDL Cholesterol 10 HDL Cholesterol 45 POC Glucose 07/14/18 07/14/18 06:25 12:40 WBC RBC Hgb Hct MCV MCH MCHC RDW RDW Differential Plt Count MPV PT INR APTT Sodium Potassium Chloride Carbon Dioxide Anion Gap BUN Creatinine Estim Creat Clear Calc Est GFR (MDRD) Af Amer Est GFR (MDRD) Non-Af BUN/Creatinine Ratio Glucose Hemoglobin A1c Calcium Magnesium Total Bilirubin AST ALT Alkaline Phosphatase Troponin I Total Protein Albumin Globulin Albumin/Globulin Ratio Triglycerides Cholesterol LDL Cholesterol VLDL Cholesterol HDL Cholesterol POC Glucose 196 H 204 H none Operations: None Procedures: Stress test - Conclusion: Normal pharmacologic myocardial perfusion stress test. Preserved ejection fraction. Summary of Care Provided: Mr. Shook is a 77-year-old male with a past medical history of hypertension, hyperlipidemia, obesity, diabetes mellitus type 2, chronic kidney disease stage III, former smoking history and chronic normochromic normocytic anemia who presented to the ED at [facility] on 07/13/[address] Bhakta's office complaining of chest pain, rhinorrhea and shortness of breath. The chest pain was not associated with exertion but, was associated with nausea and lightheadedness. Vital signs at presentation to the emergency room were temp 98.1, heart rate 67, blood pressure 155/90, respiratory rate 16 and he was 95% saturated on room air. White blood cell count was within normal limits with an unremarkable differential. Hemoglobin was 12.1 with normochromic normocytic indices and a normal RDW. Platelets were within normal limits. The BUN was 21 with a creatinine of 1.37. Troponin was less than 0.015. The EKG showed T wave flattening. Chest x-ray showed no infiltrates, pleural effusions or pulmonary vascular congestion but did show atelectasis in the bases vs scarring and significant cardiomegaly. On physical examination in the emergency department the patient had wheezing bilaterally and he was given Solu-Medrol, aspirin and intravenous fluids. He was admitted to a monitored bed on PCU and was continued on Prednisone and aerosolized bronchodilators. Serial cardiac enzymes were negative. He had a chemical nuclear stress on 07/14 and this was negative for ischemia and gated nuclear ejection fraction was 60%. He denied CP and also denied SOB on 07/14. Telemetry showed normal sinus rhythm with frequent PVCs and couplets. The pt was asymptomatic. He has never had syncope and he sometimes has lightheadedness but, only when standing up to fast. Blood pressures were uncontrolled in the hospital and ranged from 143/78 to 170/107. The Coreg was increased to 6.25 mg BID. He was discharged home with prescriptions for a medrol dosepak, and Albuterol inhaler and the Coreg. He was instructed to follow up with Dr. Bhakta next week. I think he would benefit from and ECHO to evaluate for valvular heart disease since he has a MM at the apex and in the L axillary area......I also feel he may have diastolic dysfunction. The PVC's and the couplets may be due to the Steroids and the duoneb but, if he continues to have frequent ectopics in the future would consider a 24 hour holtor monitor. PHYSICAL EXAM: GENERAL: alert, oriented X 3, Cooperative, NAD ORAL: moist mucosa, no mucosal lesions NECK: No JVD, supple, trachea midline LUNGS: CTA, symmetric chest expansion, diminished, no wheezes, no rhonchi, no rails HEART: RRR with frequent ectopics, Normal S1 and S2, no rub, no gallop, 2/6 systolic murmur at the apex with radiation into the left axilla ABDOMEN: soft, NT, ND, BS present, no guarding with palpation EXTREMITIES: no edema, no cyanosis, no calf tenderness SKIN: No rashes, no breakdown NEUROLOGIC: no focal neurologic deficits PSYCH: appropriate, normal affect, pleasant This note was generated with [employer] dictation software. It may contain incorrect words, spelling, and punctuation that were not noted in checking the note before signing. Patient Problems: Active and Suspected Problems PVCs (premature ventricular contractions) (Acute) COPD exacerbation (Acute) Chest pain (Acute) - Physical Exam Vital Signs Temp Pulse Resp BP Pulse Ox 97.5 F L 82 18 158/82 H 94 07/14/18 09:35 07/14/18 10:30 07/14/18 09:35 07/14/18 09:35 07/14/18 09:35 Oxygen Flow Rate (L/min) 2 Oxygen Delivery Method Room Air Weight: 204 lb 5.896 oz Body Mass Index (BMI) 33.0 Intake and Output for Last 24 Hours 07/12/18 07/13/18 07/14/18 23:59 23:59 23:59 Intake Total 450 / 450 2298 / 2298 Balance 450 / 450 2298 / 2298 Microbiology Past 72 Hours 07/13/18 15:46 Respiratory Panel (PCR) - Final Mucosa - Nose Laboratory Tests Past 24 Hrs 07/13/18 07/13/18 07/13/18 11:50 15:40 15:40 WBC RBC Hgb Hct MCV MCH MCHC RDW RDW Differential Plt Count MPV PT INR APTT Sodium Potassium Chloride Carbon Dioxide Anion Gap BUN Creatinine Estim Creat Clear Calc Est GFR (MDRD) Af Amer Est GFR (MDRD) Non-Af BUN/Creatinine Ratio Glucose Hemoglobin A1c 6.4 H Calcium Magnesium 1.9 Total Bilirubin AST ALT Alkaline Phosphatase Troponin I < 0.015 Total Protein Albumin Globulin Albumin/Globulin Ratio Triglycerides Cholesterol LDL Cholesterol VLDL Cholesterol HDL Cholesterol 07/13/18 07/14/18 07/14/18 20:25 05:10 05:10 WBC 8.9 RBC 4.15 L Hgb 12.7 L Hct 38.7 L MCV 93.3 MCH 30.6 MCHC 32.8 RDW 13.0 RDW Differential 43.3 Plt Count 162 MPV 10.0 PT INR APTT Sodium 143 Potassium 3.8 Chloride 108 H Carbon Dioxide 24.0 Anion Gap 11 BUN 25 H Creatinine 1.41 H Estim Creat Clear Calc 39.59 Est GFR (MDRD) Af Amer 63 Est GFR (MDRD) Non-Af 52 L BUN/Creatinine Ratio 17.7 Glucose 207 H Hemoglobin A1c Calcium 8.3 L Magnesium Total Bilirubin 0.40 AST 21 ALT 19 Alkaline Phosphatase 78 Troponin I < 0.015 Total Protein 7.5 Albumin 3.5 Globulin 4.0 Albumin/Globulin Ratio 0.9 Triglycerides 50 Cholesterol 111 LDL Cholesterol 56 VLDL Cholesterol 10 HDL Cholesterol 45 07/14/18 05:10 WBC RBC Hgb Hct MCV MCH MCHC RDW RDW Differential Plt Count MPV PT 14.6 INR 1.2 APTT 37.2 H Sodium Potassium Chloride Carbon Dioxide Anion Gap BUN Creatinine Estim Creat Clear Calc Est GFR (MDRD) Af Amer Est GFR (MDRD) Non-Af BUN/Creatinine Ratio Glucose Hemoglobin A1c Calcium Magnesium Total Bilirubin AST ALT Alkaline Phosphatase Troponin I Total Protein Albumin Globulin Albumin/Globulin Ratio Triglycerides Cholesterol LDL Cholesterol VLDL Cholesterol HDL Cholesterol POC Glucose 07/14/18 07/14/18 07/13/18 12:40 06:25 22:30 POC Glucose 204 H 196 H 358 H 07/13/18 17:14 POC Glucose 152 H Discharge Activity: - - Avoid exposure to any strong smells such as bleach, cleaning products, strong colognes or perfumes, paint fumes and smoke of any kind. Avoid sudden exposure to cold air because this can cause bronchospasm. You may want to cover your mouth when you go outside in the winter. Avoid exposure to anyone who is sick with a cough or sore throat. Call your doctor if you observe: Fever of 101 or Higher, Shortness of breath, Dizziness, Fainting spells, Swelling in the ankles, Chest pain Home Medications: Medications to take at Discharge Atorvastatin Calcium [Lipitor] 40 mg PO QHS 01/31/15 Cyanocobalamin (Vitamin B-12) [Vitamin B-12] 500 mcg PO DAILY PRN PRN 01/31/15 Glimepiride [Amaryl] 4 mg PO DAILY 01/31/15 Isosorbide Mononitrate [Imdur] 60 mg PO DAILY 01/31/15 Losartan Potassium [Cozaar] 25 mg PO DAILY 01/31/15 Terazosin HCl [Hytrin] 2 mg PO QHS 01/31/15 Cholecalciferol (Vitamin D3) [Vitamin D3] 2,000 unit PO DAILY 07/13/18 Famotidine 40 mg PO DAILY 07/13/18 Gabapentin [Neurontin] 300 mg PO QHS 07/13/18 Melatonin 10 mg PO DAILY PRN 07/13/18 Albuterol Inhaler [Ventolin Hfa] 2 puff INHALATION Q4H PRN PRN #1 inhaler 07/14/18 Carvedilol [Coreg] 6.25 mg PO BID #60 tablet 07/14/18 MethylPREDNISolone DosePak [Medrol DosePak] 4 mg PO UD #1 box 07/14/18 Following Prescrptions Were Given to Patient: Albuterol Inhaler [Ventolin Hfa] 2 puff INHALATION Q4H PRN PRN #1 inhaler PRN Reason: SOB/wheeZing MethylPREDNISolone DosePak [Medrol DosePak] 4 mg PO UD #1 box Carvedilol [Coreg] 6.25 mg PO BID #60 tablet Primary Care Physician: aKin Bhakta Chi, MD [Primary Care Provider] - Please follow up with your Primary Care Physician in: next week Disposition: Home Minutes spent on discharge:: 25 Patient Condition:: Good Medical Necessity - Tobacco Use Smoking Status: Former smoker - Patient quit smoking approximately 20-25 years prior but prior to this had smoked approximately 1.5 pack/day at least since use. Tobacco Use: Non-smoker Meaningful Use Info Meaningful Use Diagnoses (Choose all that apply): None applicable Code Visit OBSV E&M: 17396 Observation care discharge
--- NOTE | 2018-07-14 15:42 | CHAPLAIN ---
Type of Pastoral Visit _x__ Initial Visit ___ Follow-up Visit ___ On-call Visit ___ General Patient Visit ___ Spiritual Assessment ___ Family Conference ___ Bereavement ___ Rapid Response ___ Code Blue ___ Other (describe below) Pastoral Care Referral From _x__ Patient ___ Family ___ Nurse ___ Physician ___ Corrugated Sheet Material Sheeter ___ Software Test Manager ___ Other (describe below) Sacrament/Intervention _x__ Active listening ___ Anointing ___ Confucianism ___ Bereavement ___ Communion _x__ Mary exploration ___ _x__ Life review _x__ Prayer ___ Reconciliation ___ Sacrament of Sick x__ Supportive presence ___ Wedding ___ Other (describe below) Pastoral Comments
== END 2018-07-14 15:37 | disposition home or self-care (01) ==
LOC: ED 11:58 → PCU 15:02
PROVIDERS: Admitting Provider Family Medicine; Emergency Provider Emergency Medicine; Family Provider Family Medicine Geriatric Medicine; PCP Family Medicine Geriatric Medicine; Referring Provider Family Medicine; Visit Provider Internal Medicine
DX: R07.89 Other chest pain (principal); E55.9 Vitamin D deficiency, unspecified; E78.49 Other hyperlipidemia; F52.8 Other sexual dysfunction not due to a substance or known physiological condition; Z79.899 Other long term (current) drug therapy; Z87.891 Personal history of nicotine dependence; J44.9 Chronic obstructive pulmonary disease, unspecified; E11.22 Type 2 diabetes mellitus with diabetic chronic kidney disease; N18.3 Chronic kidney disease, stage 3 (moderate); I12.9 Hypertensive chronic kidney disease with stage 1 through stage 4 chronic kidney disease, or unspecified chronic kidney disease; D64.9 Anemia, unspecified; E66.9 Obesity, unspecified; Z68.33 Body mass index [BMI] 33.0-33.9, adult; Z71.3 Dietary counseling and surveillance; I49.3 Ventricular premature depolarization
CPT/HCPCS: 36415; 71045; 78452; 80053; 80061; 82306; 82550; 82962; 83036; 83735; 83874; 84403; 84443; 84484; 85025; 85027; 85610; 85730; 87633; 93005; 93017; 94640; 96361; 96372; 96374; 96375; 96376; 97802; 99218; 99283; A9500; J7030; A4216; G0378; J2785

== ENCOUNTER → 2018-07-30 13:33 | Outpatient (CLI) | payer MEDICARE, SELFPAY ==
[2018-07-13 14:50] VITALS: BMI 33.0
--- NOTE | 2018-07-30 13:36 | ECHOD_ITS ---
Reason For Study: SOB Procedure This was a 2D Doppler, Color Flow transthoracic echocardiogram. Technically difficult study, patient was unable to tolerate the probe for testing. Attempted pedoff but was unsuccessful due to this issue. Exam performed in department. Left Ventricle Mild concentric left ventricular hypertrophy. The estimated ejection fraction is 55 %. Stage 1 diastolic dysfunction. No regional wall motion abnormalities noted. There is borderline global hypokinesis of the left ventricle. Right Ventricle Normal size and thickness. Normal systolic function. Atria Normal left atrium. Normal right atrium. Normal atrial septum. Mitral Valve The mitral valve is structurally normal. No prolapse or stenosis seen. Tricuspid Valve Normal tricuspid valve. Trivial tricuspid valve insufficiency. Unable to estimate RV systolic pressure/pulmonary artery pressure due to technically difficult study. Aortic Valve Trisinus/trileaflet aortic valve. Mild diffuse aortic valve thickening. Mild aortic stenosis. Trivial aortic valve insufficiency. Pulmonic Valve Normal pulmonic valve. Great Vessels Normal aortic root. Normal arch. Normal inferior vena cava. Inferior vena cava collapse with sniff. Pericardium/Pleural No pericardial effusion. MMode/2D Measurements & Calculations LVIDd: 3.9 cm IVSd: 1.4 cm LVOT diam: 2.0 cm LVIDs: 2.9 cm LVPWd: 1.4 cm LVOT area: 3.0 cm2 FS: 25.7 % Ao root diam: 3.5 cm LAV(MOD-bp): 46.7 ml LA A4 area: 14.6 cm2 LA dimension: 3.8 cm LAV(MOD-bp) Indexed: 22.8 ml/m2 LAV(MOD-sp2): 60.1 ml LAV(MOD-sp4): 34.6 ml RA A4 area: 16.1 cm2 Time Measurements MV dec time: 0.19 sec Doppler Measurements & Calculations MV E max mark: 72.1 cm/sec Lat Peak E' Mark: 6.1 cm/sec Med Peak E' Mark: 4.6 cm/sec MV A max mark: 96.3 cm/sec E/E' lat: 11.8 E/E' med: 15.5 MV E/A: 0.75 MV V2 max: 113.6 cm/sec MV P1/2t max mark: 87.6 cm/sec Ao V2 max: 182.0 cm/sec MV max P.2 mmHg MV P1/2t: 102.9 msec Ao max P.3 mmHg MV V2 mean: 57.0 cm/sec MV dec slope: 249.3 cm/sec2 Ao V2 mean: 120.6 cm/sec MV mean P.5 mmHg Ao mean P.5 mmHg MV V2 VTI: 35.0 cm MVA(P1/2t): 2.1 cm2 Ao V2 VTI: 35.6 cm MVA(VTI): 1.9 cm2 RENATO(I,D): 1.9 cm2 RENATO(V,D): 1.6 cm2 AI max mark: 391.2 cm/sec LV V1 max: 97.4 cm/sec SV(LVOT): 68.0 ml AI max P.9 mmHg LV V1 max P.8 mmHg LV V1 mean P.8 mmHg AI dec slope: 203.7 cm/sec2 LV V1 mean: 61.3 cm/sec AI P1/2t: 562.4 msec LV V1 VTI: 22.8 cm PA V2 max: 105.0 cm/sec Interpretation Summary Mild concentric left ventricular hypertrophy. The estimated ejection fraction is 55 %. Stage 1 diastolic dysfunction. There is borderline global hypokinesis of the left ventricle. Trivial tricuspid valve insufficiency. Unable to estimate RV systolic pressure/pulmonary artery pressure due to technically difficult study. Mild aortic stenosis. Trivial aortic valve insufficiency. There is no comparison study available. Ordering Physician: Kain Bhakta Referring Physician: Kain Bhakta Chi Performed By: Brian Abernathy RCS
== END ==
PROVIDERS: Family Provider Family Medicine Geriatric Medicine; PCP Family Medicine Geriatric Medicine; Referring Provider Family Medicine Geriatric Medicine; Visit Provider Family Medicine Geriatric Medicine
DX: R06.02 Shortness of breath (principal)
CPT/HCPCS: 93306

== ENCOUNTER → 2018-10-20 | Outpatient (CLI) | payer MEDICARE, SELFPAY ==
[2018-07-13 14:50] VITALS: BMI 33.0
[2018-10-20 14:26] LABS: Absolute Lymphocyte Count 2.34 X10^3/ul (0.83-4.51); Basophil# 0.02 X10^3/uL; Basophil% 0.3 % (0-1); Eosinophil# 0.27 X10^3/uL; Eosinophils% 3.8 % (0-5); Hematocrit 37.1 % (40-54); Hemoglobin 12.4 g/dl (13.0-16.5); Lymphocyte # 2.34 X10^3/ul (4.0); Lymphocyte % 32.6 % (19-41); Mean Corp Hgb Conc 33.4 g/gl (32-36); Mean Corpuscular Hgb 30.1 pg (27.0-32.0); Mean Platelet Vol. 10.3 fl (6.2-12.0); Monocyte# 0.51 X10^3/uL; Monocyte% 7.1 % (0-10); Neutrophil # 4.02 X10^3/uL (2.7-7.7); Neutrophil % 56.1 % (47-70); Platelet Count 161 K/mm3 (150-450); RBC Distribution Width CV 13.4 % (11.6-14.6); RBC Distribution Width SD 43.8 fl (35.1-43.9); Red Blood Count 4.12 M/mm3 (4.6-6.2); White Blood Count 7.2 K/mm3 (4.4-11.0)
[2018-10-20 14:28] LABS: POSITIVE COUNT NO; POSITIVE DIFFERENTIAL NO; POSITIVE MORPHOLOGY NO
[2018-10-20 14:38] LABS: Vitamin D,25 Hydroxy 44.5 ng/mL (29.95-100.01)
[2018-10-20 14:40] LABS: AST(SGOT) 23 U/L (15-37); Alanine Aminotransfer ALT/SGPT 24 U/L (16-61); Albumin, Serum 3.9 g/dL (3.2-5.0); Alkaline Phosphatase 79 U/L (45-117); Anion Gap 6 (5-15); BUN 22 mg/dL (7-18); BUN/Creat Ratio 17.3 RATIO (10-20); Calcium,Total 8.7 mg/dL (8.5-10.1); Chloride 107 mmol/L (98-107); Creatinine, Serum 1.27 mg/dL (0.70-1.30); EST Glomerular Filtration Rate 58 mL/min (>60); Est Glom Filt Rate - Afr Amer 71 mL/min (>60); Globulin 3.9 g/dL (2.2-4.2); Glucose 102 mg/dL (74-106); Potassium 3.9 mmol/L (3.5-5.1); Protein, Total 7.8 g/dL (6.4-8.2); Sodium Level 141 mmol/L (136-145); Thyroid Stim Hormone (TSH) 2.75 uIU/mL (0.358-3.74)
== END | disposition home or self-care (01) ==
PROVIDERS: Family Provider Family Medicine Geriatric Medicine; PCP Family Medicine Geriatric Medicine; Visit Provider Family Medicine Geriatric Medicine
DX: E11.9 Type 2 diabetes mellitus without complications (principal); E55.9 Vitamin D deficiency, unspecified; I10 Essential (primary) hypertension
CPT/HCPCS: 36415; 80053; 82306; 84443; 85025

== ENCOUNTER 2019-01-01 08:17 | Emergency (ER) | payer OTHER, BC, SELFPAY ==
[2018-07-13 14:50] VITALS: BMI 33.0
[2019-01-01 08:18] VITALS: BP 140/70; PULSE 84; RESP 17; TEMP 36.2; O2SAT 95; BMI 34.2
[2019-01-01 09:32] LABS: Mucous, Urine 0 SEEN /hpf (<or=2+); Squamous Epithelial Cells - UA 0 SEEN /hpf (0-5)
[2019-01-01 09:38] LABS: Color, Urine Yellow (Yellow); Glucose, Dipstick Normal (Normal); Ketone-Dipstick Negative (Negative); Leukocyte Esterase-Dipstick 500 /ul (Negative); Nitrite-Dipstick Positive (Negative); Occult Blood-Urine 25 /ul (Negative); Protein-Dipstick 15 mg/dl (Negative); Urine Bilirubin Dipstick Negative (Negative); Urine Clarity Clear (Clear); Urine Urobilinogen 1 mg/dl (Normal)
[2019-01-01 09:49] LABS: Bacteria 3+ /hpf (None Seen); Red Blood Cells-Urine 0-5 SEEN /hpf (0-5); White Blood Cells >100 SEEN /hpf (0-5)
--- NOTE | 2019-01-01 10:54 | ED.DCSUM_ITS ---
- ER Visit Summary Date of Service: 01/01/19 Chief Complaint: Dysuria History of Present Illness: The patient is a 78 M who presents the emergency department on day 3 of dysuria. Symptoms began evening. He notes pain with urination. He denies any frequency stating he is actually urinating less b ecause of the pain. No hematuria or fevers. No nausea vomiting. He believes he is emptying his bladder. He notes the strong. Physical Examination: Afebrile Gen: Well-nourished well-developed Head: Normocephalic atraumatic Eyes: Perrl EOMI ENT: TMs clear no rhinorrhea moist mucous membranes Neck: Supple no lymphadenopathy no JVD nontender CVS: Regular rate rhythm no murmurs normal S1-S2 Respiratory: No distress clear to auscultation bilaterally chest nontender Abdomen: Soft nontender nondistended normal bowel sounds no masses Back: Nontender Extremity: Nontender no edema Skin: Normal color no rash Neuro: alert orientated ?3 CN II-XII intact normal strength sensation reflexes gait cerebellar Psych: Normal affect normal mood Test Results: Analysis shows 3+ bacteria greater than 100 white blood cells and positive nitrates. Emergency Department Course and Treatment: Urine culture will be sent. Place him on Pyridium and Keflex. He is to follow-up with his doctor if not improving return if worsening Impression: 1. Acute cystitis This note was generated with [employer] dictation software. It may contain incorrect words, spelling, and punctuation that were not noted in review of the chart prior to signing ED Disposition - Plan for ED Patient: Disposition: Home or Assisted Living Instructions: Bladder Infection, Male (Adult) Prescriptions: Cephalexin [Keflex] 500 mg PO Q12 #14 cap Transmission Status: Pending to [facility] Phenazopyridine HCl [Pyridium] 200 mg PO TID #10 tab Transmission Status: Pending to [facility] Referrals: Kain Bhakta Chi, MD [Primary Care Provider] - 3-5 Days if not improving
--- NOTE | 2019-01-01 11:07 | ED.RN ---
DISCHARGE INSTRUCTIONS GIVEN TO AND REVIEWED WITH PATIENT, PATIENT DENIES QUESTIONS OR CONCERNS AND VOICES UNDERSTANDING OF DISCHARGE INSTRUCTIONS. PT AMBULATES OUT OF ROOM WITHOUT DIFFICULTY.
== END 2019-01-01 11:07 | disposition home or self-care (01) ==
PROVIDERS: Emergency Provider Emergency Medicine; Family Provider Family Medicine Geriatric Medicine; PCP Family Medicine Geriatric Medicine
DX: N30.00 Acute cystitis without hematuria (principal); E66.9 Obesity, unspecified; J44.9 Chronic obstructive pulmonary disease, unspecified; E11.9 Type 2 diabetes mellitus without complications; I10 Essential (primary) hypertension; Z87.891 Personal history of nicotine dependence; Z79.51 Long term (current) use of inhaled steroids; Z79.84 Long term (current) use of oral hypoglycemic drugs; Z79.899 Other long term (current) drug therapy
CPT/HCPCS: 81001; 87077; 87086; 87088; 87186; 99282

== ENCOUNTER → 2019-01-06 | Outpatient (CLI) | payer BC, SELFPAY ==
[2019-01-01 08:18] VITALS: BMI 34.2
--- NOTE | 2019-01-06 17:15 | RAD_ITS ---
STUDY: X-RAY - ABDOMEN/PELVIS REASON FOR EXAM: Male, 78 years old. UTI. Patient denies pain or change in bowel habit. TECHNIQUE: AP supine and upright views of the abdomen and pelvis on 4 images. COMPARISON: None. FINDINGS: Normal visualized lung bases. There is a nonspecific pattern of gas in nondistended segments of small bowel and colon. There is no demonstrated free abdominal air. The visualized liver, spleen and kidneys are grossly normal in size and morphology. There are a few small calcified phleboliths in the pelvis. There are multilevel degenerative changes of the visualized spine. RAD/Abd Inc Decub and/or Erect IMPRESSION: Nonspecific bowel gas pattern. No free gas. Multilevel degenerative changes of the spine. Electronically Signed: Jamey Hamilton MD at 19:36 EDT , Service support ,
== END | disposition home or self-care (01) ==
LOC: RAD 17:01
PROVIDERS: Family Provider Family Medicine Geriatric Medicine; PCP Family Medicine Geriatric Medicine; Referring Provider Family Medicine Geriatric Medicine; Visit Provider Family Medicine Geriatric Medicine
DX: K56.41 Fecal impaction (principal)
CPT/HCPCS: 74019

== ENCOUNTER → 2019-01-20 | Outpatient (CLI) | payer BC, SELFPAY ==
[2019-01-01 08:18] VITALS: BMI 34.2
[2019-01-20 09:52] LABS: Absolute Lymphocyte Count 1.36 X10^3/uL (0.83-4.51); Absolute Neutrophil Count 3.2 X10^3/uL (2.0-7.7); Basophil# 0.04 X10^3/uL; Basophil% 0.8 % (0-1); Eosinophil# 0.18 X10^3/uL; Eosinophils% 3.5 % (0-5); Hematocrit 37.8 % (40-54); Hemoglobin 12.4 g/dL (13.0-16.5); Lymphocyte # 1.36 X10^3/ul (4.0); Lymphocyte % 26.8 % (19-41); Mean Corp Hgb Conc 32.8 g/dL (32-36); Mean Corpuscular Hgb 30.2 pg (27.0-32.0); Mean Platelet Vol. 10.2 fl (6.2-12.0); Monocyte# 0.33 X10^3/uL; Monocyte% 6.5 % (0-10); NRBC Flagged by Analyzer 0 % (0-5); Neutrophil # 3.16 X10^3/uL (2.7-7.7); Neutrophil % 62.2 % (47-70); Platelet Count 152 K/mm3 (150-450); RBC Distribution Width CV 12.9 % (11.6-14.6); RBC Distribution Width SD 43.3 fl (35.1-43.9); Red Blood Count 4.11 M/mm3 (4.6-6.2); White Blood Count 5.1 K/mm3 (4.4-11.0)
[2019-01-20 10:12] LABS: ALB/GLOB Ratio 0.9 RATIO (0.9-2.4); AST(SGOT) 18 U/L (15-37); Alanine Aminotransfer ALT/SGPT 19 U/L (16-61); Albumin, Serum 3.7 g/dL (3.2-5.0); Alkaline Phosphatase 85 U/L (45-117); Anion Gap 6 (5-15); BUN 24 mg/dL (7-18); Calcium,Total 8.5 mg/dL (8.5-10.1); Chloride 103 mmol/L (98-107); Creatinine, Serum 1.41 mg/dL (0.70-1.30); EST Glomerular Filtration Rate 52 mL/min (>60); Est Glom Filt Rate - Afr Amer 62 mL/min (>60); Globulin 4.2 g/dL (2.2-4.2); Glucose 259 mg/dL (74-106); Potassium 4.1 mmol/L (3.5-5.1); Protein, Total 7.9 g/dL (6.4-8.2); Sodium Level 136 mmol/L (136-145); Thyroid Stim Hormone (TSH) 2.57 uIU/mL (0.358-3.74)
[2019-01-20 10:17] LABS: Vitamin D,25 Hydroxy 37.1 ng/mL (29.95-100.01)
== END | disposition home or self-care (01) ==
LOC: POLAB3 09:08
PROVIDERS: Family Provider Family Medicine Geriatric Medicine; PCP Family Medicine Geriatric Medicine; Visit Provider Family Medicine Geriatric Medicine
DX: E11.9 Type 2 diabetes mellitus without complications (principal); E55.9 Vitamin D deficiency, unspecified; I10 Essential (primary) hypertension
CPT/HCPCS: 36415; 80053; 82306; 84443; 85025

== ENCOUNTER → 2019-04-28 11:57 | Outpatient (CLI) | payer BC, SELFPAY ==
[2019-04-28 12:39] LABS: Absolute Lymphocyte Count 1.43 X10^3/uL (0.83-4.51); Absolute Neutrophil Count 3.5 X10^3/uL (2.0-7.7); Basophil# 0.04 X10^3/uL; Basophil% 0.7 % (0-1); Eosinophils% 3.6 % (0-5); Hematocrit 36.6 % (40-54); Hemoglobin 11.9 g/dL (13.0-16.5); Lymphocyte # 1.43 X10^3/ul (4.0); Lymphocyte % 25.9 % (19-41); Mean Corp Hgb Conc 32.5 g/dL (32-36); Mean Corpuscular Volume 92.2 fL (80-94); Mean Platelet Vol. 10.4 fl (6.2-12.0); Monocyte# 0.37 X10^3/uL; Monocyte% 6.7 % (0-10); NRBC Flagged by Analyzer 0 % (0-5); Neutrophil # 3.47 X10^3/uL (2.7-7.7); Neutrophil % 62.7 % (47-70); Platelet Count 169 K/mm3 (150-450); RBC Distribution Width SD 44.4 fl (35.1-43.9); Red Blood Count 3.97 M/mm3 (4.6-6.2); White Blood Count 5.5 K/mm3 (4.4-11.0)
[2019-04-28 13:09] LABS: AST(SGOT) 22 U/L (15-37); Alanine Aminotransfer ALT/SGPT 19 U/L (16-61); Albumin, Serum 3.7 g/dL (3.2-5.0); Alkaline Phosphatase 87 U/L (45-117); Anion Gap 6 (5-15); BUN 14 mg/dL (7-18); BUN/Creat Ratio 11.4 RATIO (10-20); Calcium,Total 8.7 mg/dL (8.5-10.1); Chloride 108 mmol/L (98-107); Creatinine, Serum 1.23 mg/dL (0.70-1.30); EST Glomerular Filtration Rate 60 mL/min (>60); Est Glom Filt Rate - Afr Amer 73 mL/min (>60); Globulin 3.8 g/dL (2.2-4.2); Glucose 99 mg/dL (74-106); Potassium 3.9 mmol/L (3.5-5.1); Protein, Total 7.5 g/dL (6.4-8.2); Sodium Level 140 mmol/L (136-145); Thyroid Stim Hormone (TSH) 3.53 uIU/mL (0.358-3.74)
== END ==
PROVIDERS: Family Provider Family Medicine Geriatric Medicine; PCP Family Medicine Geriatric Medicine; Visit Provider Family Medicine Geriatric Medicine
DX: E55.9 Vitamin D deficiency, unspecified (principal); E11.9 Type 2 diabetes mellitus without complications; I10 Essential (primary) hypertension
CPT/HCPCS: 36415; 80053; 82306; 84443; 85025

== ENCOUNTER → 2019-06-21 15:05 | Outpatient (CLI) | payer BC, SELFPAY ==
[2019-06-21 17:47] LABS: Basophil# 0.03 X10^3/uL; Basophil% 0.4 % (0-1); Eosinophil# 0.18 X10^3/uL; Eosinophils% 2.3 % (0-5); Hematocrit 41.6 % (40-54); Hemoglobin 13.7 g/dL (13.0-16.5); Lymphocyte % 26.1 % (19-41); Mean Corp Hgb Conc 32.9 g/dL (32-36); Mean Corpuscular Hgb 29.9 pg (27.0-32.0); Mean Corpuscular Volume 90.8 fL (80-94); Mean Platelet Vol. 10.4 fl (6.2-12.0); Monocyte# 0.47 X10^3/uL; Monocyte% 6.1 % (0-10); NRBC Flagged by Analyzer 0 % (0-5); Neutrophil # 4.97 X10^3/uL (2.7-7.7); Neutrophil % 64.8 % (47-70); Platelet Count 196 K/mm3 (150-450); RBC Distribution Width CV 12.9 % (11.6-14.6); RBC Distribution Width SD 42.5 fl (35.1-43.9); Red Blood Count 4.58 M/mm3 (4.6-6.2); White Blood Count 7.7 K/mm3 (4.4-11.0)
[2019-06-21 17:52] LABS: Anion Gap 5 (5-15); BUN 17 mg/dL (7-18); BUN/Creat Ratio 12.4 RATIO (10-20); Chloride 106 mmol/L (98-107); Creatinine, Serum 1.37 mg/dL (0.70-1.30); EST Glomerular Filtration Rate 53 mL/min (>60); Est Glom Filt Rate - Afr Amer 65 mL/min (>60); Glucose 250 mg/dL (74-106); Potassium 4.2 mmol/L (3.5-5.1); Sodium Level 139 mmol/L (136-145)
== END ==
PROVIDERS: PCP Family Medicine Geriatric Medicine; Visit Provider Family Medicine Geriatric Medicine
DX: M79.609 Pain in unspecified limb (principal)
CPT/HCPCS: 36415; 80048; 85025

== ENCOUNTER → 2019-07-14 13:38 | Outpatient (CLI) | payer BC, SELFPAY ==
[2019-07-14 16:53] LABS: Absolute Lymphocyte Count 2.22 X10^3/uL (0.83-4.51); Absolute Neutrophil Count 3.7 X10^3/uL (2.0-7.7); Basophil# 0.05 X10^3/uL; Basophil% 0.7 % (0-1); Eosinophil# 0.22 X10^3/uL; Eosinophils% 3.2 % (0-5); Hematocrit 37.9 % (40-54); Hemoglobin 12.4 g/dL (13.0-16.5); Lymphocyte # 2.22 X10^3/ul (4.0); Lymphocyte % 32.7 % (19-41); Mean Corp Hgb Conc 32.7 g/dL (32-36); Mean Corpuscular Hgb 29.7 pg (27.0-32.0); Mean Corpuscular Volume 90.9 fL (80-94); Monocyte# 0.53 X10^3/uL; Monocyte% 7.8 % (0-10); NRBC Flagged by Analyzer 0 % (0-5); Neutrophil # 3.74 X10^3/uL (2.7-7.7); Neutrophil % 55.3 % (47-70); Platelet Count 150 K/mm3 (150-450); RBC Distribution Width SD 42.7 fl (35.1-43.9); Red Blood Count 4.17 M/mm3 (4.6-6.2); White Blood Count 6.8 K/mm3 (4.4-11.0)
[2019-07-14 17:15] LABS: Vitamin D,25 Hydroxy 80.7 ng/mL
[2019-07-14 17:21] LABS: ALB/GLOB Ratio 0.9 RATIO (0.9-2.4); AST(SGOT) 18 U/L (15-37); Alanine Aminotransfer ALT/SGPT 26 U/L (16-61); Albumin, Serum 3.6 g/dL (3.2-5.0); Alkaline Phosphatase 80 U/L (45-117); Anion Gap 7 (5-15); BUN 22 mg/dL (7-18); BUN/Creat Ratio 15.9 RATIO (10-20); Calcium,Total 8.3 mg/dL (8.5-10.1); Chloride 103 mmol/L (98-107); Creatinine, Serum 1.38 mg/dL (0.70-1.30); EST Glomerular Filtration Rate 53 mL/min (>60); Est Glom Filt Rate - Afr Amer 64 mL/min (>60); Glucose 235 mg/dL (74-106); Potassium 4.3 mmol/L (3.5-5.1); Protein, Total 7.6 g/dL (6.4-8.2); Sodium Level 137 mmol/L (136-145); Thyroid Stim Hormone (TSH) 2.58 uIU/mL (0.358-3.74)
== END ==
PROVIDERS: PCP Family Medicine Geriatric Medicine; Visit Provider Family Medicine Geriatric Medicine
DX: E11.9 Type 2 diabetes mellitus without complications (principal); E55.9 Vitamin D deficiency, unspecified; I10 Essential (primary) hypertension
CPT/HCPCS: 36415; 80053; 82306; 84443; 85025

== ENCOUNTER 2019-07-22 11:34 | Outpatient (RCR) | payer MEDICARE, SELFPAY | END 2019-07-22 17:00 | disposition home or self-care (01) | LOC: PT 11:34 | PROVIDERS: PCP Family Medicine Geriatric Medicine; Visit Provider Family Medicine Geriatric Medicine | DX: R69 Illness, unspecified (principal) ==

== ENCOUNTER → 2019-09-12 14:16 | Outpatient (CLI) | payer MEDICARE, SELFPAY ==
--- NOTE | 2019-09-12 14:25 | RAD_ITS ---
STUDY: X-RAY - LUMBAR SPINE REASON FOR EXAM: Male, 79 years old. PAIN IN LOWER BACK INTO COCCYX FOR ALMOST A WEEK NOW GETTING WORSE. NO KNOWN INJURY. TECHNIQUE: 3 view(s) of the lumbar spine were obtained. COMPARISON: None FINDINGS: There is straightening of the normal lumbar lordosis. There is no substantial scoliosis. There is a normal alignment of the vertebrae. There is multilevel endplate spondylosis of the lumbar vertebrae. There is multi-level degenerative disc disease with multi-level disc space narrowing. There is atherosclerotic calcification of the abdominal aorta without a demonstrated aneurysm. RAD/Lumbar Spine 2 or 3 Views IMPRESSION: Degenerative changes of the spine, as detailed above. Electronically Signed: Berlin Webb, at 15:10 EDT , Service support ,
--- NOTE | 2019-09-12 14:27 | RAD_ITS ---
STUDY: X-RAY - SACRUM/COCCYX REASON FOR EXAM: Male, 79 years old. PAIN IN LOWER BACK INTO COCCYX FOR ALMOST A WEEK NOW GETTING WORSE. NO KNOWN INJURY. TECHNIQUE: 3 view(s) of the sacrum and coccyx were obtained. COMPARISON: None. FINDINGS: Normal bilateral sacroiliac joints. Normal visualized sacral ala and fused sacral bodies. Normal sacrococcygeal junction with a normal angulation. Normal coccygeal segments. Prostate calcification. RAD/Sacrum-Coccyx min 2 Views IMPRESSION: Prostate calcification. Electronically Signed: Berlin Webb, at 15:07 EDT , Service support ,
== END ==
PROVIDERS: PCP Family Medicine Geriatric Medicine; Referring Provider Family Medicine Geriatric Medicine; Visit Provider Family Medicine Geriatric Medicine
DX: M54.5 Low back pain (principal)
CPT/HCPCS: 72100; 72220

== ENCOUNTER → 2019-10-18 12:06 | Outpatient (CLI) | payer MEDICARE, SELFPAY ==
[2019-10-18 15:18] LABS: Basophil# 0.04 X10^3/uL; Basophil% 0.6 % (0-1); Eosinophil# 0.14 X10^3/uL; Eosinophils% 2.3 % (0-5); Hematocrit 37.2 % (40-54); Hemoglobin 12.5 g/dL (13.0-16.5); Lymphocyte % 25.9 % (19-41); Mean Corp Hgb Conc 33.6 g/dL (32-36); Mean Corpuscular Hgb 30.4 pg (27.0-32.0); Mean Corpuscular Volume 90.5 fL (80-94); Mean Platelet Vol. 10.9 fl (6.2-12.0); Monocyte# 0.35 X10^3/uL; Monocyte% 5.7 % (0-10); NRBC Flagged by Analyzer 0 % (0-5); Neutrophil # 4.04 X10^3/uL (2.7-7.7); Neutrophil % 65.3 % (47-70); Platelet Count 156 K/mm3 (150-450); RBC Distribution Width CV 12.6 % (11.6-14.6); RBC Distribution Width SD 41.5 fl (35.1-43.9); Red Blood Count 4.11 M/mm3 (4.6-6.2); White Blood Count 6.2 K/mm3 (4.4-11.0)
[2019-10-18 15:33] LABS: Vitamin D,25 Hydroxy 97.2 ng/mL
[2019-10-18 15:51] LABS: ALB/GLOB Ratio 0.9 RATIO (0.9-2.4); AST(SGOT) 16 U/L (15-37); Alanine Aminotransfer ALT/SGPT 21 U/L (16-61); Albumin, Serum 3.5 g/dL (3.2-5.0); Alkaline Phosphatase 76 U/L (45-117); Anion Gap 10 (5-15); BUN 22 mg/dL (7-18); BUN/Creat Ratio 16.3 RATIO (10-20); Calcium,Total 8.9 mg/dL (8.5-10.1); Chloride 100 mmol/L (98-107); Creatinine, Serum 1.35 mg/dL (0.70-1.30); EST Glomerular Filtration Rate 54 mL/min (>60); Est Glom Filt Rate - Afr Amer 66 mL/min (>60); Globulin 3.8 g/dL (2.2-4.2); Glucose 382 mg/dL (74-106); Potassium 4.6 mmol/L (3.5-5.1); Protein, Total 7.3 g/dL (6.4-8.2); Sodium Level 135 mmol/L (136-145); Thyroid Stim Hormone (TSH) 2.11 uIU/mL (0.358-3.74)
== END ==
PROVIDERS: PCP Family Medicine Geriatric Medicine; Visit Provider Family Medicine Geriatric Medicine
DX: E11.9 Type 2 diabetes mellitus without complications (principal); E55.9 Vitamin D deficiency, unspecified; I10 Essential (primary) hypertension
CPT/HCPCS: 36415; 80053; 82306; 84443; 85025

== ENCOUNTER → 2020-01-19 13:19 | Outpatient (CLI) | payer MEDICARE, SELFPAY ==
[2020-01-19 16:38] LABS: Absolute Lymphocyte Count 2.04 X10^3/uL (0.83-4.51); Basophil# 0.04 X10^3/uL; Basophil% 0.6 % (0-1); Eosinophil# 0.21 X10^3/uL; Eosinophils% 3.1 % (0-5); Hematocrit 37.3 % (40-54); Hemoglobin 12.4 g/dL (13.0-16.5); Lymphocyte # 2.04 X10^3/ul (4.0); Lymphocyte % 29.8 % (19-41); Mean Corp Hgb Conc 33.2 g/dL (32-36); Mean Corpuscular Hgb 30.5 pg (27.0-32.0); Mean Corpuscular Volume 91.9 fL (80-94); Mean Platelet Vol. 10.4 fl (6.2-12.0); Monocyte# 0.51 X10^3/uL; Monocyte% 7.5 % (0-10); NRBC Flagged by Analyzer 0 % (0-5); Neutrophil # 4.03 X10^3/uL (2.7-7.7); Neutrophil % 58.9 % (47-70); Platelet Count 184 K/mm3 (150-450); RBC Distribution Width CV 12.8 % (11.6-14.6); RBC Distribution Width SD 42.7 fl (35.1-43.9); Red Blood Count 4.06 M/mm3 (4.6-6.2); White Blood Count 6.8 K/mm3 (4.4-11.0)
[2020-01-19 17:06] LABS: AST(SGOT) 21 U/L (15-37); Alanine Aminotransfer ALT/SGPT 23 U/L (16-61); Albumin, Serum 3.6 g/dL (3.2-5.0); Alkaline Phosphatase 84 U/L (45-117); Anion Gap 4 (5-15); BUN 21 mg/dL (7-18); BUN/Creat Ratio 19.4 RATIO (10-20); Calcium,Total 8.3 mg/dL (8.5-10.1); Chloride 106 mmol/L (98-107); Creatinine, Serum 1.08 mg/dL (0.70-1.30); EST Glomerular Filtration Rate 70 mL/min (>60); Est Glom Filt Rate - Afr Amer 85 mL/min (>60); Globulin 3.7 g/dL (2.2-4.2); Glucose 139 mg/dL (74-106); Protein, Total 7.3 g/dL (6.4-8.2); Sodium Level 139 mmol/L (136-145); Thyroid Stim Hormone (TSH) 3.34 uIU/mL (0.358-3.74)
== END ==
PROVIDERS: PCP Family Medicine Geriatric Medicine; Visit Provider Family Medicine Geriatric Medicine
DX: E11.9 Type 2 diabetes mellitus without complications (principal); E55.9 Vitamin D deficiency, unspecified; I10 Essential (primary) hypertension
CPT/HCPCS: 36415; 80053; 82306; 84443; 85025

== ENCOUNTER → 2020-04-23 14:52 | Outpatient (CLI) | payer MEDICARE, SELFPAY ==
[2020-04-23 16:35] LABS: Vitamin D,25 Hydroxy 70.9 ng/mL
[2020-04-23 16:39] LABS: Absolute Lymphocyte Count 1.76 X10^3/uL (0.83-4.51); Absolute Neutrophil Count 3.3 X10^3/uL (2.0-7.7); Basophil# 0.04 X10^3/uL; Basophil% 0.7 % (0-1); Eosinophils% 3.5 % (0-5); Hematocrit 37.5 % (40-54); Hemoglobin 12.5 g/dL (13.0-16.5); Lymphocyte # 1.76 X10^3/ul (4.0); Lymphocyte % 30.4 % (19-41); Mean Corp Hgb Conc 33.3 g/dL (32-36); Mean Corpuscular Hgb 30.4 pg (27.0-32.0); Mean Corpuscular Volume 91.2 fL (80-94); Mean Platelet Vol. 10.6 fl (6.2-12.0); Monocyte# 0.48 X10^3/uL; Monocyte% 8.3 % (0-10); NRBC Flagged by Analyzer 0 % (0-5); Neutrophil # 3.29 X10^3/uL (2.7-7.7); Neutrophil % 56.9 % (47-70); Platelet Count 172 K/mm3 (150-450); RBC Distribution Width SD 42.3 fl (35.1-43.9); Red Blood Count 4.11 M/mm3 (4.6-6.2); White Blood Count 5.8 K/mm3 (4.4-11.0)
[2020-04-23 16:47] LABS: AST(SGOT) 19 U/L (15-37); Alanine Aminotransfer ALT/SGPT 21 U/L (16-61); Albumin, Serum 3.7 g/dL (3.2-5.0); Alkaline Phosphatase 89 U/L (45-117); Anion Gap 5 (5-15); BUN 24 mg/dL (7-18); Calcium,Total 8.6 mg/dL (8.5-10.1); Chloride 105 mmol/L (98-107); EST Glomerular Filtration Rate 62 mL/min (>60); Est Glom Filt Rate - Afr Amer 75 mL/min (>60); Globulin 3.8 g/dL (2.2-4.2); Glucose 184 mg/dL (74-106); Potassium 4.3 mmol/L (3.5-5.1); Protein, Total 7.5 g/dL (6.4-8.2); Sodium Level 137 mmol/L (136-145); Thyroid Stim Hormone (TSH) 2.84 uIU/mL (0.358-3.74)
== END ==
PROVIDERS: PCP Family Medicine Geriatric Medicine; Visit Provider Family Medicine Geriatric Medicine
DX: E11.9 Type 2 diabetes mellitus without complications (principal); E55.9 Vitamin D deficiency, unspecified; F52.8 Other sexual dysfunction not due to a substance or known physiological condition; I10 Essential (primary) hypertension
CPT/HCPCS: 36415; 80053; 82306; 84403; 84443; 85025

== ENCOUNTER → 2020-07-05 15:12 | Outpatient (CLI) | payer MEDICARE, SELFPAY ==
[2020-07-05 18:19] LABS: Anion Gap 6 (5-15); BUN 21 mg/dL (7-18); BUN/Creat Ratio 15.7 RATIO (10-20); Calcium,Total 8.7 mg/dL (8.5-10.1); Chloride 105 mmol/L (98-107); Creatinine, Serum 1.34 mg/dL (0.70-1.30); EST Glomerular Filtration Rate 55 mL/min (>60); Est Glom Filt Rate - Afr Amer 66 mL/min (>60); Glucose 145 mg/dL (74-106); Sodium Level 139 mmol/L (136-145)
== END ==
PROVIDERS: PCP Family Medicine Geriatric Medicine; Visit Provider Family Medicine Geriatric Medicine
DX: I10 Essential (primary) hypertension (principal)
CPT/HCPCS: 36415; 80048

== ENCOUNTER → 2020-07-23 10:38 | Outpatient (CLI) | payer MEDICARE, SELFPAY ==
[2020-07-23 12:25] LABS: Absolute Lymphocyte Count 1.74 X10^3/uL (0.83-4.51); Absolute Neutrophil Count 3.4 X10^3/uL (2.0-7.7); Basophil# 0.03 X10^3/uL; Basophil% 0.5 % (0-1); Eosinophil# 0.26 X10^3/uL; Eosinophils% 4.5 % (0-5); Hematocrit 38.1 % (40-54); Hemoglobin 12.7 g/dL (13.0-16.5); Lymphocyte # 1.74 X10^3/ul (4.0); Lymphocyte % 29.8 % (19-41); Mean Corp Hgb Conc 33.3 g/dL (32-36); Mean Corpuscular Hgb 30.2 pg (27.0-32.0); Mean Corpuscular Volume 90.5 fL (80-94); Mean Platelet Vol. 10.5 fl (6.2-12.0); Monocyte# 0.38 X10^3/uL; Monocyte% 6.5 % (0-10); NRBC Flagged by Analyzer 0 % (0-5); Neutrophil # 3.41 X10^3/uL (2.7-7.7); Neutrophil % 58.4 % (47-70); Platelet Count 159 K/mm3 (150-450); RBC Distribution Width CV 12.7 % (11.6-14.6); RBC Distribution Width SD 41.5 fl (35.1-43.9); Red Blood Count 4.21 M/mm3 (4.6-6.2); White Blood Count 5.8 K/mm3 (4.4-11.0)
[2020-07-23 12:59] LABS: ALB/GLOB Ratio 0.9 RATIO (0.9-2.4); AST(SGOT) 16 U/L (15-37); Alanine Aminotransfer ALT/SGPT 26 U/L (16-61); Albumin, Serum 3.6 g/dL (3.2-5.0); Alkaline Phosphatase 95 U/L (45-117); Anion Gap 7 (5-15); BUN 26 mg/dL (7-18); BUN/Creat Ratio 18.4 RATIO (10-20); Calcium,Total 8.9 mg/dL (8.5-10.1); Chloride 98 mmol/L (98-107); Cholesterol 104 mg/dL (200); Creatinine, Serum 1.41 mg/dL (0.70-1.30); EST Glomerular Filtration Rate 51 mL/min (>60); Est Glom Filt Rate - Afr Amer 62 mL/min (>60); Glucose 415 mg/dL (74-106); High Density Lipoprotein 41 mg/dL; Potassium 4.5 mmol/L (3.5-5.1); Protein, Total 7.6 g/dL (6.4-8.2); Sodium Level 133 mmol/L (136-145); Thyroid Stim Hormone (TSH) 2.93 uIU/mL (0.358-3.74); Triglycerides 100 mg/dL; Very Low Density Lipoprotein 20 mg/dL (5-40)
== END ==
PROVIDERS: PCP Family Medicine Geriatric Medicine; Visit Provider Family Medicine Geriatric Medicine
DX: E11.9 Type 2 diabetes mellitus without complications (principal); E55.9 Vitamin D deficiency, unspecified; E78.5 Hyperlipidemia, unspecified; I10 Essential (primary) hypertension
CPT/HCPCS: 36415; 80053; 80061; 82306; 84443; 85025

== ENCOUNTER → 2020-10-25 09:50 | Outpatient (CLI) | payer MEDICARE, SELFPAY ==
[2020-10-25 10:51] LABS: Absolute Lymphocyte Count 1.36 X10^3/uL (0.83-4.51); Absolute Neutrophil Count 3.4 X10^3/uL (2.0-7.7); Basophil# 0.04 X10^3/uL; Basophil% 0.7 % (0-1); Eosinophil# 0.18 X10^3/uL; Eosinophils% 3.4 % (0-5); Hematocrit 35.9 % (40-54); Hemoglobin 12.2 g/dL (13.0-16.5); Lymphocyte # 1.36 X10^3/ul (0.83-4.51); Lymphocyte % 25.4 % (19-41); Mean Corpuscular Hgb 30.6 pg (27.0-32.0); Mean Platelet Vol. 10.1 fl (6.2-12.0); Monocyte# 0.41 X10^3/uL; Monocyte% 7.6 % (0-10); NRBC Flagged by Analyzer 0 % (0-5); Neutrophil # 3.36 X10^3/uL (2.7-7.7); Neutrophil % 62.7 % (47-70); Platelet Count 171 K/mm3 (150-450); RBC Distribution Width CV 13.1 % (11.6-14.6); RBC Distribution Width SD 43.4 fl (35.1-43.9); Red Blood Count 3.99 M/mm3 (4.6-6.2); White Blood Count 5.4 K/mm3 (4.4-11.0)
[2020-10-25 11:08] LABS: Vitamin D,25 Hydroxy 85.1 ng/mL
[2020-10-25 11:17] LABS: ALB/GLOB Ratio 0.8 RATIO (0.9-2.4); AST(SGOT) 17 U/L (15-37); Alanine Aminotransfer ALT/SGPT 21 U/L (16-61); Albumin, Serum 3.5 g/dL (3.2-5.0); Alkaline Phosphatase 95 U/L (45-117); Anion Gap 6 (5-15); BUN 21 mg/dL (7-18); BUN/Creat Ratio 16.2 RATIO (10-20); Calcium,Total 8.9 mg/dL (8.5-10.1); Chloride 101 mmol/L (98-107); Cholesterol 109 mg/dL (200); EST Glomerular Filtration Rate 56 mL/min (>60); Est Glom Filt Rate - Afr Amer 68 mL/min (>60); Globulin 4.2 g/dL (2.2-4.2); Glucose 283 mg/dL (74-106); High Density Lipoprotein 45 mg/dL; Potassium 4.2 mmol/L (3.5-5.1); Protein, Total 7.7 g/dL (6.4-8.2); Sodium Level 134 mmol/L (136-145); Thyroid Stim Hormone (TSH) 3.19 uIU/mL (0.358-3.74); Triglycerides 74 mg/dL; Very Low Density Lipoprotein 15 mg/dL (5-40)
== END ==
PROVIDERS: PCP Family Medicine Geriatric Medicine; Visit Provider Family Medicine Geriatric Medicine
DX: E11.40 Type 2 diabetes mellitus with diabetic neuropathy, unspecified (principal); E55.9 Vitamin D deficiency, unspecified; E78.5 Hyperlipidemia, unspecified; F52.8 Other sexual dysfunction not due to a substance or known physiological condition; I10 Essential (primary) hypertension
CPT/HCPCS: 36415; 80053; 80061; 82306; 84403; 84443; 85025

== ENCOUNTER → 2021-04-17 10:18 | Outpatient (CLI) | payer MEDICARE, SELFPAY ==
[2021-04-17 16:26] LABS: Absolute Lymphocyte Count 1.54 X10^3/uL (0.83-4.51); Absolute Neutrophil Count 3.3 X10^3/uL (2.0-7.7); Basophil# 0.03 X10^3/uL; Basophil% 0.6 % (0-1); Eosinophil# 0.14 X10^3/uL; Eosinophils% 2.6 % (0-5); Hematocrit 31.7 % (40-54); Hemoglobin 10.9 g/dL (13.0-16.5); Lymphocyte # 1.54 X10^3/ul (0.83-4.51); Lymphocyte % 28.5 % (19-41); Mean Corp Hgb Conc 34.4 g/dL (32-36); Mean Corpuscular Hgb 30.5 pg (27.0-32.0); Mean Corpuscular Volume 88.8 fL (80-94); Mean Platelet Vol. 10.8 fl (6.2-12.0); Monocyte# 0.38 X10^3/uL; NRBC Flagged by Analyzer 0 % (0-5); Neutrophil % 61.1 % (47-70); Platelet Count 157 K/mm3 (150-450); RBC Distribution Width CV 12.8 % (11.6-14.6); RBC Distribution Width SD 41.8 fl (35.1-43.9); Red Blood Count 3.57 M/mm3 (4.6-6.2); White Blood Count 5.4 K/mm3 (4.4-11.0)
[2021-04-17 16:42] LABS: Vitamin D,25 Hydroxy 72.7 ng/mL
[2021-04-17 16:59] LABS: ALB/GLOB Ratio 0.8 RATIO (0.9-2.4); AST(SGOT) 19 U/L (15-37); Alanine Aminotransfer ALT/SGPT 22 U/L (16-61); Alkaline Phosphatase 65 U/L (45-117); Anion Gap 8 (5-15); BUN 31 mg/dL (7-18); BUN/Creat Ratio 19.1 RATIO (10-20); Calcium,Total 8.4 mg/dL (8.5-10.1); Chloride 98 mmol/L (98-107); Cholesterol 113 mg/dL (200); Creatinine, Serum 1.62 mg/dL (0.70-1.30); EST Glomerular Filtration Rate 44 mL/min (>60); Est Glom Filt Rate - Afr Amer 53 mL/min (>60); Globulin 3.8 g/dL (2.2-4.2); Glucose 510 mg/dL (74-106); High Density Lipoprotein 35 mg/dL; Potassium 4.8 mmol/L (3.5-5.1); Protein, Total 6.8 g/dL (6.4-8.2); Sodium Level 131 mmol/L (136-145); Thyroid Stim Hormone (TSH) 1.71 uIU/mL (0.358-3.74); Triglycerides 167 mg/dL; Very Low Density Lipoprotein 33 mg/dL (5-40)
[2021-04-17 19:28] LABS: Hemoglobin A1c > 14.0 % (3.8-5.6)
== END ==
PROVIDERS: PCP Family Medicine Geriatric Medicine; Visit Provider Family Medicine Geriatric Medicine
DX: E11.9 Type 2 diabetes mellitus without complications (principal); E55.9 Vitamin D deficiency, unspecified; E78.5 Hyperlipidemia, unspecified; F52.8 Other sexual dysfunction not due to a substance or known physiological condition; I10 Essential (primary) hypertension
CPT/HCPCS: 36415; 80053; 80061; 82306; 83036; 84403; 84443; 85025

== ENCOUNTER 2021-07-25 11:36 | Outpatient (CLI) | payer MEDICARE, SELFPAY ==
[2021-07-25 12:41] LABS: Absolute Lymphocyte Count 1.42 X10^3/uL (0.83-4.51); Absolute Neutrophil Count 3.6 X10^3/uL (2.0-7.7); Basophil# 0.04 X10^3/uL; Basophil% 0.7 % (0-1); Eosinophil# 0.27 X10^3/uL; Eosinophils% 4.7 % (0-5); Hematocrit 35.2 % (40-54); Hemoglobin 12.1 g/dL (13.0-16.5); Lymphocyte # 1.42 X10^3/ul (0.83-4.51); Lymphocyte % 24.8 % (19-41); Mean Corp Hgb Conc 34.4 g/dL (32-36); Mean Corpuscular Hgb 30.6 pg (27.0-32.0); Mean Corpuscular Volume 89.1 fL (80-94); Mean Platelet Vol. 10.3 fl (6.2-12.0); Monocyte# 0.38 X10^3/uL; Monocyte% 6.6 % (0-10); NRBC Flagged by Analyzer 0 % (0-5); Neutrophil # 3.59 X10^3/uL (2.7-7.7); Neutrophil % 62.9 % (47-70); Platelet Count 187 K/mm3 (150-450); RBC Distribution Width CV 12.7 % (11.6-14.6); RBC Distribution Width SD 41.4 fl (35.1-43.9); Red Blood Count 3.95 M/mm3 (4.6-6.2); White Blood Count 5.7 K/mm3 (4.4-11.0)
[2021-07-25 13:02] LABS: Vitamin D,25 Hydroxy 65.3 ng/mL
[2021-07-25 13:13] LABS: ALB/GLOB Ratio 0.8 RATIO (0.9-2.4); AST(SGOT) 19 U/L (15-37); Alanine Aminotransfer ALT/SGPT 21 U/L (16-61); Albumin, Serum 3.5 g/dL (3.2-5.0); Alkaline Phosphatase 79 U/L (45-117); Anion Gap 4 (5-15); BUN 33 mg/dL (7-18); BUN/Creat Ratio 20.6 RATIO (10-20); Calcium,Total 8.9 mg/dL (8.5-10.1); Chloride 106 mmol/L (98-107); EST Glomerular Filtration Rate 44 mL/min (>60); Est Glom Filt Rate - Afr Amer 54 mL/min (>60); Globulin 4.2 g/dL (2.2-4.2); Glucose 181 mg/dL (74-106); Potassium 4.4 mmol/L (3.5-5.1); Protein, Total 7.7 g/dL (6.4-8.2); Sodium Level 138 mmol/L (136-145); Thyroid Stim Hormone (TSH) 4.71 uIU/mL (0.358-3.74)
== END 2021-07-25 23:59 | disposition home or self-care (01) ==
PROVIDERS: PCP Family Medicine Geriatric Medicine; Visit Provider Family Medicine Geriatric Medicine
DX: E11.9 Type 2 diabetes mellitus without complications (principal); E55.9 Vitamin D deficiency, unspecified; F52.8 Other sexual dysfunction not due to a substance or known physiological condition; I10 Essential (primary) hypertension
CPT/HCPCS: 36415; 80053; 82306; 84403; 84443; 85025

== ENCOUNTER → 2021-09-11 | Outpatient (CLI) | payer MEDICARE, SELFPAY ==
[2021-09-11 12:22] LABS: Thyroid Stim Hormone (TSH) 2.98 uIU/mL (0.358-3.74)
== END | disposition home or self-care (01) ==
LOC: POLAB3 09:25
PROVIDERS: PCP Family Medicine Geriatric Medicine; Visit Provider Family Medicine Geriatric Medicine
DX: E03.9 Hypothyroidism, unspecified (principal)
CPT/HCPCS: 36415; 84443

== ENCOUNTER → 2021-10-29 | Outpatient (CLI) | payer MEDICARE, SELFPAY ==
[2021-10-29 12:37] LABS: Absolute Lymphocyte Count 1.72 X10^3/uL (0.83-4.51); Absolute Neutrophil Count 4.3 X10^3/uL (2.0-7.7); Basophil# 0.04 X10^3/uL; Basophil% 0.6 % (0-1); Eosinophil# 0.23 X10^3/uL; Eosinophils% 3.4 % (0-5); Hematocrit 38.7 % (40-54); Hemoglobin 12.8 g/dL (13.0-16.5); Lymphocyte # 1.72 X10^3/ul (0.83-4.51); Lymphocyte % 25.6 % (19-41); Mean Corp Hgb Conc 33.1 g/dL (32-36); Mean Corpuscular Hgb 29.6 pg (27.0-32.0); Mean Corpuscular Volume 89.4 fL (80-94); Mean Platelet Vol. 10.9 fl (6.2-12.0); Monocyte# 0.43 X10^3/uL; Monocyte% 6.4 % (0-10); NRBC Flagged by Analyzer 0 % (0-5); Neutrophil # 4.29 X10^3/uL (2.7-7.7); Neutrophil % 63.7 % (47-70); Platelet Count 176 K/mm3 (150-450); RBC Distribution Width CV 13.2 % (11.6-14.6); RBC Distribution Width SD 43.2 fl (35.1-43.9); Red Blood Count 4.33 M/mm3 (4.6-6.2); White Blood Count 6.7 K/mm3 (4.4-11.0)
[2021-10-29 13:02] LABS: Vitamin D,25 Hydroxy 74.5 ng/mL
[2021-10-29 13:28] LABS: ALB/GLOB Ratio 0.8 RATIO (0.9-2.4); AST(SGOT) 26 U/L (15-37); Alanine Aminotransfer ALT/SGPT 26 U/L (16-61); Albumin, Serum 3.6 g/dL (3.2-5.0); Alkaline Phosphatase 88 U/L (45-117); Anion Gap 4 (5-15); BUN 21 mg/dL (7-18); BUN/Creat Ratio 13.4 RATIO (10-20); Calcium,Total 8.6 mg/dL (8.5-10.1); Chloride 105 mmol/L (98-107); Creatinine, Serum 1.57 mg/dL (0.70-1.30); EST Glomerular Filtration Rate 45 mL/min (>60); Est Glom Filt Rate - Afr Amer 55 mL/min (>60); Globulin 4.3 g/dL (2.2-4.2); Glucose 96 mg/dL (74-106); Potassium 4.4 mmol/L (3.5-5.1); Protein, Total 7.9 g/dL (6.4-8.2); Sodium Level 138 mmol/L (136-145); Thyroid Stim Hormone (TSH) 2.99 uIU/mL (0.358-3.74)
== END | disposition home or self-care (01) ==
LOC: POLAB3 10:01
PROVIDERS: PCP Family Medicine Geriatric Medicine; Visit Provider Family Medicine Geriatric Medicine
DX: E11.9 Type 2 diabetes mellitus without complications (principal); E55.9 Vitamin D deficiency, unspecified; F52.8 Other sexual dysfunction not due to a substance or known physiological condition; I10 Essential (primary) hypertension
CPT/HCPCS: 36415; 80053; 82306; 84403; 84443; 85025

== ENCOUNTER → 2021-12-10 | Outpatient (CLI) | payer MEDICARE, SELFPAY ==
[2021-12-10 19:42] LABS: M R Staph aureus DNA By PCR Negative (Negative); Probe Check PASS; Specimen Processing Control PASS; Staph aureus DNA By PCR NEGATIVE (Negative)
== END | disposition home or self-care (01) ==
LOC: LABSPEC 15:12
PROVIDERS: PCP Family Medicine Geriatric Medicine; Visit Provider Family Medicine Geriatric Medicine
DX: S21.009A Unspecified open wound of unspecified breast, initial encounter (principal); B95.62 Methicillin resistant Staphylococcus aureus infection as the cause of diseases classified elsewhere
CPT/HCPCS: 87070; 87077; 87186; 87205; 87640

== ENCOUNTER → 2022-02-05 | Outpatient (CLI) | payer MEDICARE, SELFPAY ==
[2022-02-05 12:23] LABS: Absolute Lymphocyte Count 1.76 X10^3/uL (0.83-4.51); Basophil# 0.04 X10^3/uL; Basophil% 0.7 % (0-1); Eosinophils% 3.7 % (0-5); Hematocrit 36.5 % (40-54); Hemoglobin 12.3 g/dL (13.0-16.5); Lymphocyte # 1.76 X10^3/ul (0.83-4.51); Lymphocyte % 32.6 % (19-41); Mean Corp Hgb Conc 33.7 g/dL (32-36); Mean Corpuscular Volume 91.9 fL (80-94); Mean Platelet Vol. 10.1 fl (6.2-12.0); Monocyte# 0.41 X10^3/uL; Monocyte% 7.6 % (0-10); NRBC Flagged by Analyzer 0 % (0-5); Neutrophil # 2.97 X10^3/uL (2.7-7.7); Platelet Count 151 K/mm3 (150-450); RBC Distribution Width CV 13.5 % (11.6-14.6); RBC Distribution Width SD 45.8 fl (35.1-43.9); Red Blood Count 3.97 M/mm3 (4.6-6.2); White Blood Count 5.4 K/mm3 (4.4-11.0)
[2022-02-05 12:35] LABS: Vitamin D,25 Hydroxy 74.6 ng/mL
[2022-02-05 12:45] LABS: ALB/GLOB Ratio 0.8 RATIO (0.9-2.4); AST(SGOT) 27 U/L (15-37); Alanine Aminotransfer ALT/SGPT 22 U/L (16-61); Albumin, Serum 3.3 g/dL (3.2-5.0); Alkaline Phosphatase 84 U/L (45-117); Anion Gap 8 (5-15); BUN 27 mg/dL (7-18); BUN/Creat Ratio 18.2 RATIO (10-20); Calcium,Total 8.3 mg/dL (8.5-10.1); Chloride 105 mmol/L (98-107); Creatinine, Serum 1.48 mg/dL (0.70-1.30); EST Glomerular Filtration Rate 48 mL/min (>60); Est Glom Filt Rate - Afr Amer 59 mL/min (>60); Glucose 174 mg/dL (74-106); Potassium 3.8 mmol/L (3.5-5.1); Protein, Total 7.3 g/dL (6.4-8.2); Sodium Level 138 mmol/L (136-145); Thyroid Stim Hormone (TSH) 2.78 uIU/mL (0.358-3.74)
== END | disposition home or self-care (01) ==
LOC: POLAB3 10:22
PROVIDERS: PCP Family Medicine Geriatric Medicine; Visit Provider Family Medicine Geriatric Medicine
DX: E11.9 Type 2 diabetes mellitus without complications (principal); E55.9 Vitamin D deficiency, unspecified; F52.8 Other sexual dysfunction not due to a substance or known physiological condition; I10 Essential (primary) hypertension
CPT/HCPCS: 36415; 80053; 82306; 84403; 84443; 85025

== ENCOUNTER 2022-02-22 16:16 | Emergency (ER) | payer MEDICARE, SELFPAY ==
[2022-02-22 16:16] VITALS: BP 175/78; PULSE 79; RESP 16; TEMP 36.6; O2SAT 94; BMI 36.3
--- NOTE | 2022-02-22 16:50 | EDS_ITS ---
HPI History of Present Illness Chief Complaint: Upper Extremity Injury Narrative Narrative: Patient with past medical history of COPD, hypertension, diabetes, presents with injury to his right third digit fingertip. He states he lost his balance and fell this morning. He did not strike his head or lose consciousness. While he states he has a humberto on his chest, he denies any chest pain, he is concerned because the tip of his third digit on his right hand is swollen and tender and i s turning purple in certain areas. He denies other injuries and states he is here only for his fingertip and only wants that portion of his body x-rayed. He takes a baby aspirin. He denies any chest pain or knee pain and was able to ambulate. He had fallen onto carpet over concrete. He is right-hand dominant and denies any other injuries. PFSH PFSH Home Medications atorvastatin 80 mg tablet 40 mg PO QHS CHOLESTEROL 01/31/15 [History Last Taken Unknown] glimepiride 4 mg tablet 4 mg PO DAILY DIABETES 01/31/15 [History Last Taken Unknown] isosorbide mononitrate 60 mg tablet,extended release 24 hr 60 mg PO DAILY BLOOD PRESSURE 01/31/15 [History Last Taken 02/01/15 06:00] losartan 25 mg tablet 25 mg PO DAILY BLOOD PRESSURE 01/31/15 [History Last Taken 02/01/15 06:00] cholecalciferol (vitamin D3) 50 mcg (2,000 unit) capsule (Vitamin D3) 2,000 unit PO DAILY SUPPLEMENT 07/13/18 [History Last Taken Unknown] famotidine 40 mg tablet 40 mg PO DAILY GERD 07/13/18 [History Last Taken Unknown] gabapentin 300 mg capsule 300 mg PO QHS NEUROPATHY 07/13/18 [History Last Taken Unknown] albuterol sulfate 90 mcg/actuation aerosol inhaler (Ventolin HFA) 2 puff inhalation Q4H PRN PRN SOB/wheeZing ##1 07/14/18 [Rx Last Taken Unknown] carvedilol 6.25 mg tablet (Coreg) 6.25 mg PO BID #60 tabs 07/14/18 [Rx Last Taken Unknown] insulin degludec 100 unit/mL (3 mL) subcutaneous pen (Tresiba FlexTouch U-100 insulin) 40 unit subcut DAILY 02/22/22 [History Last Taken Unknown] Allergy/AdvReac Type Severity Reaction Status Date / Time No Known Allergies Allergy Verified 02/22/22 16:19 Surgical History (Updated 02/22/22 @ 16:58 by Angela Henriquez) History of appendectomy Social History Smoking Status: Former smoker ROS ROS ED ROS Narrative Constitutional: No fever, no chills. HEENT: No sore throat. No neck pain. No loss of vision. No rhinorrhea. Cardiovascular: No chest pain. No palpitations. No pedal edema. Respiratory: No cough, no shortness of breath. Abdominal: No abdominal pain. No nausea. No vomiting. Genitourinary: No dysuria. No hematuria. Musculoskeletal: No myalgias. Pain, swelling, and ecchymosis of right fingertip at DIP joint. Limited range of motion of DIP joint secondary to pain. Neurologic: No headaches. No dizziness. No lightheadedness. Skin: No rash. No change in color. Psychiatric: No depression. No anxiety. EXAM Physical Exam Narrative Exam Narrative: Afebrile. Vital signs noted. GCS 15. ABCs intact. HEENT: Normocephalic. Atraumatic. PERRL, EOMI. Neck soft and supple. No point tenderness or step off. Cardiovascular: Regular rate and rhythm. No murmurs, rubs, or gallops appreciated. No chest tenderness or crepitance. Respiratory: No tachypnea. Lungs clear to auscultation bilaterally. Gastrointestinal: Abdomen soft, nontender, with normoactive bowel sounds. No rebound or guarding. Neurological: Awake. Alert. Nonfocal, nonlateralizing. Skin: No rash. Normal color. No pallor. Musculoskeletal: No pedal edema. Mild swelling and ecchymosis at DIP joint of third middle finger. Range of motion limited secondary to pain. There is underlying osteoarthritic changes with noted nodes. Small subungual hematoma, less than 10% noted in proximal nailbed of third digit. Const Vital Signs: 02/22/22 16:16 Temperature 97.8 F Temperature Source Temporal Pulse Rate 79 Respiratory Rate 16 Blood Pressure 175/78 H Blood Pressure Mean 110 Pulse Ox 94 Oxygen Delivery Method Room Air MDM MDM MDM Narrative Medical decision making narrative: X-rays were obtained of the right third digit. I interpreted the x-rays myself. My interpretation shows no evidence of acute fracture. At this point in time, patient has baseline difficulty with extention of the dip joint of his middle finger. He only wants his finger to be olivia taped. 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 He will continue ice and elevation and over the counter medications. Return instructions were reviewed. Diego is disharged home in stable condition. Discharge Plan Triage Chief Complaint: Upper Extremity Injury ED Provider: Donald Francis Dx/Rx/DC Orders Clinical Impression: Finger sprain, Subungual hematoma, Fall Instructions: ED Finger Sprain, ED Subungual Hematoma Prescriptions: No Action atorvastatin 80 MG tablet 40 mg PO QHS isosorbide mononitrate 60 MG tablet 60 mg PO DAILY glimepiride 4 MG tablet 4 mg PO DAILY losartan 25 MG tablet 25 mg PO DAILY famotidine 40 MG tablet 40 mg PO DAILY gabapentin 300 MG capsule 300 mg PO QHS cholecalciferol (vitamin D3) [Vitamin D3] 2,000 UNIT capsule 2,000 unit PO DAILY carvedilol [Coreg] 6.25 MG tablet 6.25 mg PO BID Qty: 60 0RF albuterol sulfate [Ventolin HFA] 1 INHALER inhaler 2 puff inhalation Q4H PRN PRN (Reason: SOB/wheeZing) Qty: 1 0RF insulin degludec [Tresiba FlexTouch U-100] 100 unit/mL (3 mL) insulin pen 40 unit SUBCUT DAILY Label Comments: INJECT 40 UNITS SUBCUTANEOUSLY ONCE DAILY Primary Care Provider: Kain Bhakta Chi Referrals: Keegan Crabtree DO [Med Staff - Active Staff] - 1 Week if not improving Kain Bhakta Chi, MD [Primary Care Provider] - Disposition Disposition: Home, Self Care Discharge Date/Time: 02/22/22 18:48
--- NOTE | 2022-02-22 16:50 | RAD_ITS ---
STUDY: RIGHT THIRD FINGER SERIES OF 1651 HOURS ON 02/22/2022 REASON FOR EXAM: 81-year-old male with trauma to the left third finger tip with resulting pain. TECHNIQUE: 3 view(s) of the finger were obtained. COMPARISON: None. FINDINGS: No fractures or dislocations. There are mild to moderate osteophytic degenerative changes of the interphalangeal joints and the metacarpal-phalangeal joint of the third finger. There are no osseous lytic, sclerotic or mass lesions. Mild soft tissue swelling of the distal third finger is noted. RAD/Finger(s) Min 2 Views IMPRESSION: 1. No fractures or dislocations. 2. 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 3. Mild soft tissue swelling of the distal right third finger. Electronically Signed: Wil Brice MD at 17:18 EDT ,
== END 2022-02-22 18:48 | disposition home or self-care (01) ==
PROVIDERS: Emergency Provider Emergency Medicine; PCP Family Medicine Geriatric Medicine; Visit Provider Emergency Medicine
DX: S63.612A Unspecified sprain of right middle finger, initial encounter (principal); J44.9 Chronic obstructive pulmonary disease, unspecified; E11.9 Type 2 diabetes mellitus without complications; Z79.4 Long term (current) use of insulin; I10 Essential (primary) hypertension; Z79.84 Long term (current) use of oral hypoglycemic drugs; Z79.899 Other long term (current) drug therapy; Z79.82 Long term (current) use of aspirin; W19.XXXA Unspecified fall, initial encounter; Z87.891 Personal history of nicotine dependence
CPT/HCPCS: 73140; 99282

== ENCOUNTER 2022-04-09 15:00 | Outpatient (CLI) | payer MEDICARE, SELFPAY ==
--- NOTE | 2022-04-09 15:20 | RAD_ITS ---
EXAM: XR ABDOMEN, 2 VIEWS CLINICAL INDICATION: PAIN TECHNIQUE: Frontal view of the abdomen/pelvis with upright view of the abdomen. This report was created using [employer] report generation technology. COMPARISON: 01/06/2019 FINDINGS: LOWER THORAX: No acute pathology. INTRAPERITONEAL SPACE: No free air. GASTROINTESTINAL TRACT: Unremarkable. Non-obstructive. No bowel or stomach distention. ORGANS: Unremarkable as visualized. No organomegaly. No abnormal calcifications. BONES/JOINTS: No acute pathology. SOFT TISSUES: No acute pathology. RAD/Abd Inc Decub and/or Erect IMPRESSION: Unremarkable abdominal series. Electronically Signed: Dionicio Coffman MD at 17:36 EST ,
== END 2022-04-09 23:59 | disposition home or self-care (01) ==
PROVIDERS: PCP Family Medicine Geriatric Medicine; Referring Provider Family Medicine Geriatric Medicine; Visit Provider Family Medicine Geriatric Medicine
DX: R10.9 Unspecified abdominal pain (principal); R19.7 Diarrhea, unspecified
CPT/HCPCS: 36415; 74019; 80053; 85025

== ENCOUNTER → 2022-04-09 | Outpatient (CLI) | payer MEDICARE, SELFPAY ==
[2022-04-09 16:58] LABS: Absolute Neutrophil Count 3.6 X10^3/uL (2.0-7.7); Basophil# 0.01 X10^3/uL; Basophil% 0.2 % (0-1); Hematocrit 35.5 % (40-54); Hemoglobin 12.3 g/dL (13.0-16.5); Mean Corp Hgb Conc 34.6 g/dL (32-36); Mean Corpuscular Hgb 30.6 pg (27.0-32.0); Mean Corpuscular Volume 88.3 fL (80-94); Mean Platelet Vol. 9.8 fl (6.2-12.0); Monocyte# 0.42 X10^3/uL; Monocyte% 8.1 % (0-10); NRBC Flagged by Analyzer 0 % (0-5); Neutrophil # 3.56 X10^3/uL (2.7-7.7); Neutrophil % 68.3 % (47-70); Platelet Count 188 K/mm3 (150-450); RBC Distribution Width CV 13.3 % (11.6-14.6); RBC Distribution Width SD 43.8 fl (35.1-43.9); Red Blood Count 4.02 M/mm3 (4.6-6.2); White Blood Count 5.2 K/mm3 (4.4-11.0)
[2022-04-09 17:24] LABS: ALB/GLOB Ratio 0.7 RATIO (0.9-2.4); AST(SGOT) 73 U/L (15-37); Alanine Aminotransfer ALT/SGPT 39 U/L (16-61); Albumin, Serum 3.1 g/dL (3.2-5.0); Alkaline Phosphatase 65 U/L (45-117); Anion Gap 10 (5-15); BUN 44 mg/dL (7-18); BUN/Creat Ratio 24.2 RATIO (10-20); Calcium,Total 8.3 mg/dL (8.5-10.1); Chloride 100 mmol/L (98-107); Creatinine, Serum 1.82 mg/dL (0.70-1.30); EST Glomerular Filtration Rate 38 mL/min (>60); Est Glom Filt Rate - Afr Amer 46 mL/min (>60); Globulin 4.2 g/dL (2.2-4.2); Glucose 159 mg/dL (74-106); Protein, Total 7.3 g/dL (6.4-8.2); Sodium Level 131 mmol/L (136-145)
== END | disposition home or self-care (01) ==
LOC: POLAB3 16:35
PROVIDERS: PCP Family Medicine Geriatric Medicine; Visit Provider Family Medicine Geriatric Medicine
DX: R19.7 Diarrhea, unspecified (principal)
CPT/HCPCS: 36415; 80053; 85025

== ENCOUNTER → 2022-04-14 | Outpatient (CLI) | payer MEDICARE, SELFPAY | END | disposition home or self-care (01) | LOC: PSN 08:02 | PROVIDERS: PCP Family Medicine Geriatric Medicine; Visit Provider Family Medicine Geriatric Medicine | DX: U07.1 COVID-19 (principal) | CPT/HCPCS: 87635; 87804; 87807; C9803; U0003; U0005 ==

== ENCOUNTER 2022-04-18 17:45 | Inpatient (IN) | payer MEDICARE, SELFPAY ==
[2022-04-18] VITALS (9 sets, daily range): BP systolic 124–143; BP diastolic 72–89; PULSE 86–93; RESP 17–22; TEMP 36.3–36.8; O2SAT 85–97; BMI 35.3; BMI 34.2
--- NOTE | 2022-04-18 18:08 | EKG12_ITS ---
Test Reason : DYSRHYTHMIA Blood Pressure : / mmHG Vent. Rate : 088 BPM Atrial Rate : 088 BPM P-R Int : 186 ms QRS Dur : 086 ms QT Int : 364 ms P-R-T Axes : 023 -20 043 degrees QTc Int : 440 ms Normal sinus rhythm Septal infarct , age undetermined Abnormal ECG Confirmed by MAIK EVANS, ROLANDO ([id number]), editor at large SJ HANKINS ([id number]) on 04/22/2022 11:55:29 AM Referred By: CRISTOPHER Confirmed By:ROLANDO PLEITEZ MD
--- NOTE | 2022-04-18 18:09 | EX.ED.DYSGE1 ---
HPI History of Present Illness Chief Complaint: General Illness Narrative Narrative: 81-year-old male presenting with generalized weakness. He states he has felt this way for days. He spoke to his primary care physician on Thursday. He states that his primary care physician did not tell him anything. Patient states he has not had a fever that he knows of but he does have intermittent sweats. He states he does have chest pain from time to time. He is not eating a lot of food but states he is not nauseous. He states he is not hungry. Patient admits that he still taking his insulin even though he is not eating. He is also taking glimepiride. [facility] Medical History Diabetes Hypertension Home Medications atorvastatin 80 mg tablet 40 mg PO QHS CHOLESTEROL 01/31/15 [History Last Taken Unknown] glimepiride 4 mg tablet 4 mg PO DAILY DIABETES 01/31/15 [History Last Taken Unknown] isosorbide mononitrate 60 mg tablet,extended release 24 hr 60 mg PO DAILY BLOOD PRESSURE 01/31/15 [History Last Taken 02/01/15 06:00] losartan 25 mg tablet 25 mg PO DAILY BLOOD PRESSURE 01/31/15 [History Last Taken 02/01/15 06:00] cholecalciferol (vitamin D3) 50 mcg (2,000 unit) capsule (Vitamin D3) 2,000 unit PO DAILY SUPPLEMENT 07/13/18 [History Last Taken Unknown] famotidine 40 mg tablet 40 mg PO DAILY GERD 07/13/18 [History Last Taken Unknown] gabapentin 300 mg capsule 300 mg PO QHS NEUROPATHY 07/13/18 [History Last Taken Unknown] albuterol sulfate 90 mcg/actuation aerosol inhaler (Ventolin HFA) 2 puff inhalation Q4H PRN PRN SOB/wheeZing ##1 07/14/18 [Rx Last Taken Unknown] carvedilol 6.25 mg tablet (Coreg) 6.25 mg PO BID #60 tabs 07/14/18 [Rx Last Taken Unknown] insulin degludec 100 unit/mL (3 mL) subcutaneous pen (Tresiba FlexTouch U-100 insulin) 40 unit subcut DAILY 02/22/22 [History Last Taken Unknown] Allergy/AdvReac Type Severity Reaction Status Date / Time No Known Allergies Allergy Verified 04/18/22 17:53 Surgical History History of appendectomy Social History Smoking Status: Former smoker ROS ROS ED Constitutional Constitutional ED: Reports chills and sweats Eyes Eyes: Denies change in vision ENT ENT ED: Denies rhinorrhea or sore throat Cardiovascular Cardiovascular: Reports chest pain Respiratory/Chest Respiratory/Chest: Reports cough and dyspnea Gastrointestinal Gastrointestinal: Denies abdominal pain, nausea or vomiting Genitourinary Genitourinary ED: Denies dysuria or hematuria Musculoskeletal Musculoskeletal: Reports myalgias Integumentary Denies abscess Neurologic Neurologic: Denies headache(s) or paresthesias Psychiatric Psychiatric: Denies anxiety or depression EXAM Physical Exam Const Vital Signs: 04/18/22 17:49 04/18/22 17:53 04/18/22 18:08 Temperature 97.7 F L 97.7 F L Temperature Source Oral Oral Pulse Rate 92 92 Respiratory Rate 22 H 22 H Respiratory Effort Respiratory Pattern Blood Pressure 124/89 H 124/89 H Blood Pressure Mean 100 100 Pulse Ox 85 94 94 Oxygen Delivery Method Room Air Nasal Cannula Nasal Cannula Oxygen Flow Rate (L/min) 4 4 04/18/22 18:11 04/18/22 18:11 Temperature Temperature Source Pulse Rate Respiratory Rate Respiratory Effort Short of Breath Respiratory Pattern Tachypnea Blood Pressure Blood Pressure Mean Pulse Ox 92 Oxygen Delivery Method Nasal Cannula Oxygen Flow Rate (L/min) 3 Positive well nourished General Appearance ED: NAD; Negative for pallor HEENT Reports dry mucous membranes Mouth ED: Yes dry mucous membranes Mouth: dry mucous membranes Eyes PERRL and EOMs intact bilaterally General Eye ED: Negative for pale conjunctiva or scleral icterus Chest Wall inspection of chest normal Resp Auscultation: Negative for rales, rhonchi or wheezes Cardio regular rate and regular rhythm GI normal to inspection, nondistended, normoactive bowel sounds Neuro oriented x3 and CN's II-XII intact bilaterally Sensorium / Orientation: alert Motor Exam: general weakness Psych mental status grossly normal Skin no rashes or lesions noted and no wounds General Skin Exam: Negative for jaundice or pallor MDM MDM MDM Narrative Medical decision making narrative: Patient presenting with generalized weakness. He states he has a cough and intermittent chest pains. He does feel short of breath. He does note that he still taking his insulin even though is not eating as much. EMS reported that his blood sugar was in the 50s. He was given oral glucose in route. Patient blood sugar still in the 40s. Patient was given amp D50. Patient was noted to be hypoxic and was 85% on room air. He reports he does not usually have to wear oxygen. He is 92% on 3 L. CBC does not show leukocytosis. White blood cell count is not 8.4. Hemoglobin stable 11.9. Platelets 75028. Creatinine is elevated at 2.63 his baseline is about 1.6. He was given a liter of IV fluids. His repeat blood glucose is 200. Chest x-ray on my interpretation shows bilateral basal infiltrates. The radiologist interprets this and agrees. Given that the patient is hypoxic and pneumonia he will need to be admitted. There is also concern for his acute kidney injury which is likely causing his hypoglycemia episodes. Patient was treated with Rocephin and azithromycin. Patient was discussed with hospitalist for admission. Impression: 1. Bilateral pneumonia 2. hypoxic respiratory failure 3. Hyperglycemia 4. Acute kidney injury Lab Data Attestation: I reviewed the patient's lab results. Labs: Laboratory Results - last 24 hr 04/18/22 04/18/22 04/18/22 18:00 18:15 18:15 WBC 8.4 RBC 4.05 L Hgb 11.9 L Hct 36.1 L MCV 89.1 MCH 29.4 MCHC 33.0 RDW Std Deviation 44.4 H RDW Coeff of Elmer 13.5 Plt Count 302 MPV 9.9 Immature Gran % (Auto) 0.500 Neut % (Auto) 83.7 H Lymph % (Auto) 10.1 L Teller % (Auto) 5.4 Eos % (Auto) 0.1 Baso % (Auto) 0.2 Absolute Neuts (auto) 7.0 Absolute Lymphs (auto) 0.85 Nucleated RBC % 0 D-Dimer Quant (PE/DVT) 8.04 H* Sodium Potassium Chloride Carbon Dioxide Anion Gap BUN Creatinine Estim Creat Clear Calc Est GFR (MDRD) Af Amer Est GFR (MDRD) Non-Af BUN/Creatinine Ratio Glucose Calcium Troponin I High Sens B-Natriuretic Peptide POC Glucose 42 L* 04/18/22 04/18/22 04/18/22 18:15 18:15 18:38 WBC RBC Hgb Hct MCV MCH MCHC RDW Std Deviation RDW Coeff of Elmer Plt Count MPV Immature Gran % (Auto) Neut % (Auto) Lymph % (Auto) Teller % (Auto) Eos % (Auto) Baso % (Auto) Absolute Neuts (auto) Absolute Lymphs (auto) Nucleated RBC % D-Dimer Quant (PE/DVT) Sodium 136 Potassium 4.2 Chloride 105 Carbon Dioxide 25.0 Anion Gap 6 BUN 83 H Creatinine 2.63 H Estim Creat Clear Calc 20.60 Est GFR (MDRD) Af Amer 30 L Est GFR (MDRD) Non-Af 25 L BUN/Creatinine Ratio 31.6 H Glucose 59 L Calcium 9.1 Troponin I High Sens 42 B-Natriuretic Peptide 28.8 POC Glucose 200 H Radiography Diagnostic Testing: Clinical Impression(s) from Imaging Studies Chest X-Ray 04/18/22 18:38 IMPRESSION: Bibasilar interstitial infiltrates. Question pneumonia. Electronically Signed: Jimmie Townsend DO at 18:53 EST Reading Location ID and State: [address] [place] [address] Tel [phone], Service support , Discharge Plan Triage Chief Complaint: General Illness ED Provider: Dayday Murphy Dx/Rx/DC Orders Prescriptions: No Action atorvastatin 80 MG tablet 40 mg PO QHS isosorbide mononitrate 60 MG tablet 60 mg PO DAILY glimepiride 4 MG tablet 4 mg PO DAILY losartan 25 MG tablet 25 mg PO DAILY famotidine 40 MG tablet 40 mg PO DAILY gabapentin 300 MG capsule 300 mg PO QHS cholecalciferol (vitamin D3) [Vitamin D3] 2,000 UNIT capsule 2,000 unit PO DAILY carvedilol [Coreg] 6.25 MG tablet 6.25 mg PO BID Qty: 60 0RF albuterol sulfate [Ventolin HFA] 1 INHALER inhaler 2 puff inhalation Q4H PRN PRN (Reason: SOB/wheeZing) Qty: 1 0RF insulin degludec [Tresiba FlexTouch U-100] 100 unit/mL (3 mL) insulin pen 40 unit SUBCUT DAILY Label Comments: INJECT 40 UNITS SUBCUTANEOUSLY ONCE DAILY Primary Care Provider: Kain Bhakta Chi Referrals: Kain Bhakta Chi, MD [Primary Care Provider] -
[2022-04-18] MEDS: Dextrose 50%-Water 25 GM/50 ML DISP.SYRIN IV (18:12)
[2022-04-18 18:31] LABS: Absolute Lymphocyte Count 0.85 X10^3/uL (0.83-4.51); Basophil# 0.02 X10^3/uL; Basophil% 0.2 % (0-1); Eosinophil# 0.01 X10^3/uL; Eosinophils% 0.1 % (0-5); Hematocrit 36.1 % (40-54); Hemoglobin 11.9 g/dL (13.0-16.5); Lymphocyte # 0.85 X10^3/ul (0.83-4.51); Lymphocyte % 10.1 % (19-41); Mean Corpuscular Hgb 29.4 pg (27.0-32.0); Mean Corpuscular Volume 89.1 fL (80-94); Mean Platelet Vol. 9.9 fl (6.2-12.0); Monocyte# 0.45 X10^3/uL; Monocyte% 5.4 % (0-10); NRBC Flagged by Analyzer 0 % (0-5); Neutrophil # 7.01 X10^3/uL (2.7-7.7); Neutrophil % 83.7 % (47-70); Platelet Count 302 K/mm3 (150-450); RBC Distribution Width CV 13.5 % (11.6-14.6); RBC Distribution Width SD 44.4 fl (35.1-43.9); Red Blood Count 4.05 M/mm3 (4.6-6.2); White Blood Count 8.4 K/mm3 (4.4-11.0)
--- NOTE | 2022-04-18 18:38 | RAD_ITS ---
STUDY: X-RAY CHEST REASON FOR EXAM: Male, 81 years old. Chest pain. Patient has not been feeling well for 1 week. Cough and shortness of breath. Nausea and vomiting. Blood glucose was 52 by EMS. TECHNIQUE: Single AP portable view of the chest. COMPARISON: July 13, 2018. FINDINGS: Patchy interstitial densities at the lung bases most marked on the right. There is no demonstrated pleural abnormality. Normal size heart. Normal mediastinum and shiva. Normal visualized pulmonary arteries. There is atherosclerotic calcification of the aortic arch with tortuosity. There are diffuse degenerative changes of the visualized thoracic spine. There is degenerative osteoarthritis of the bilateral shoulders. There is no demonstrated abnormality of the visualized soft tissue structures of the upper abdomen. RAD/Chest 1 View (Portable) IMPRESSION: Bibasilar interstitial infiltrates. Question pneumonia. Electronically Signed: Jimmie Townsend DO at 18:53 EST ,
[2022-04-18 18:41] LABS: Anion Gap 6 (5-15); BUN 83 mg/dL (7-18); BUN/Creat Ratio 31.6 RATIO (10-20); Calcium,Total 9.1 mg/dL (8.5-10.1); Chloride 105 mmol/L (98-107); Creatinine, Serum 2.63 mg/dL (0.70-1.30); EST Glomerular Filtration Rate 25 mL/min (>60); Est Glom Filt Rate - Afr Amer 30 mL/min (>60); Glucose 59 mg/dL (74-106); Potassium 4.2 mmol/L (3.5-5.1); Sodium Level 136 mmol/L (136-145); Troponin-I HS (w/2H Reflex) 42 pg/mL (3.0-78.0)
[2022-04-18 18:52] LABS: D-Dimer Quantitative (DVT/PE) 8.04 FEU/ug/m (0.27-0.49)
[2022-04-18 18:55] LABS: Bedside Glucose 200 mg/dL (74-106)
[2022-04-18 18:55] LABS: Bedside Glucose 42 mg/dL (74-106)
[2022-04-18 18:56] LABS: BNP,B-Type NATRIURETIC PEPTIDE 28.8 pg/mL (0-100)
[2022-04-18] MEDS: 0.9% Normal Saline 1,000 ML 999 ML IV (19:12)
[2022-04-18 20:20] LABS: Reflex Troponin-HS? (from REC) Y
--- NOTE | 2022-04-18 20:58 | VDLE_ITS ---
Reason For Study: Elevated D-Dimer RIGHT LEFT GSV is normal. GSV is normal. CFV is compressible, spontaneous, phasic, CFV is compressible, spontaneous, phasic, competent and demonstrates normal competent, and demonstrates normal augmentation. augmentation. FV is compressible, spontaneous, phasic, FV is compressible, spontaneous, phasic, competent and demonstrates normal competent and demonstrates normal augmentation. augmentation. POP V is compressible, spontaneous, phasic, POP V is compressible, spontaneous, phasic, competent and demonstrates normal competent and demonstrates normal augmentation. augmentation. T/P Trunk is compressible. T/P Trunk is compressible. PTV is compressible. PTV is compressible. RT PerV is compressible. LT PerV is compressible. Procedure This is a venous duplex using B-mode, color flow and spectral Doppler. Exam performed portable in patient room. The exam was abbreviated due to the COVID 19 protocol. The exam was diagnostic. A preliminary report was called and/or faxed to PCU yarn mercerizer operator helper Jody. VL/Venous Duplex US - Justice Extrem Interpretation Summary No evidence for acute deep venous thrombosis bilateral lower extremities with p atent and compressible bilateral great saphenous veins. Abbreviated COVID-19 protocol uti lized Ordering Physician: Yifan Diamond Referring Physician: Kain Bhakta Chi Performed By: Sang Stone RVT
--- NOTE | 2022-04-18 21:00 | PCM.HP.STD ---
HPI - General General Date of Admission: 04/18/22 Date of Service: 04/18/22 Chief Complaint: Weakness HPI Narrative JUNIOR MACIAS, is a 81 M with a significant history of hypertension and diabetes mellitus who presents emergency department with progressively worsening weakness that started more than a week ago. Reportedly he saw his PCP recently. Associated with patient's symptoms is productive cough of syed sputum. Also he reports anorexia and shortness of breath. He reports diaphoresis. Reportedly patient talk to his daughter who is at [place], [place] (phone #[phone]) who might have called paramedics for patient or advice patient to call paramedics. Emergency department doctor also provided part of history. Reportedly because of patient's blood sugar was in the 50s patient received oral glucose from squad. At the emergency department because blood glucose was in the 40s patient was given an amp of D50. Patient's creatinine was 2.63. His initial troponin was 42. While patient complained of intermittent chest pain to emergency department doctor patient denies chest pain to hospitalist. Patient reports of diaphoresis. Patient is a poor historian [facility] Medical History Diabetes Hypertension Home Medications atorvastatin 80 mg tablet 40 mg PO QHS CHOLESTEROL 01/31/15 [History Last Taken Unknown] glimepiride 4 mg tablet 4 mg PO DAILY DIABETES 01/31/15 [History Last Taken Unknown] isosorbide mononitrate 60 mg tablet,extended release 24 hr 60 mg PO DAILY BLOOD PRESSURE 01/31/15 [History Last Taken 04/17/22] losartan 25 mg tablet 25 mg PO DAILY BLOOD PRESSURE 01/31/15 [History Last Taken 04/17/22] cholecalciferol (vitamin D3) 50 mcg (2,000 unit) capsule (Vitamin D3) 2,000 unit PO DAILY SUPPLEMENT 07/13/18 [History Last Taken 04/18/22] famotidine 40 mg tablet 40 mg PO DAILY GERD 07/13/18 [History Last Taken Unknown] gabapentin 300 mg capsule 300 mg PO QHS NEUROPATHY 07/13/18 [History Last Taken 04/17/22] albuterol sulfate 90 mcg/actuation aerosol inhaler (Ventolin HFA) 2 puff inhalation Q4H PRN PRN SOB/wheeZing ##1 07/14/18 [Rx Last Taken 04/17/22] insulin degludec 100 unit/mL (3 mL) subcutaneous pen (Tresiba FlexTouch U-100 insulin) 40 unit subcut DAILY diabetes 02/22/22 [History Last Taken 04/17/22] carvedilol 6.25 mg tablet (Coreg) 6.25 mg PO DAILY blood pressure 04/18/22 [History Last Taken Unknown] Allergy/AdvReac Type Severity Reaction Status Date / Time No Known Allergies Allergy Verified 04/18/22 17:53 Family History Other Diabetes Heart disease Surgical History History of appendectomy Social History Smoking Status: Former smoker ROS Review of Systems ROS Unobtainable: other Details: Patient is a poor historian. All systems were reviewed. Review of systems that patient provide is as in hpi. Vital Signs Vital Signs Vital Signs: 04/18/22 17:49 04/18/22 17:53 04/18/22 18:08 Temperature 97.7 F L 97.7 F L Temperature Source Oral Oral Pulse Rate 92 92 Respiratory Rate 22 H 22 H Respiratory Effort Respiratory Pattern Blood Pressure 124/89 H 124/89 H Blood Pressure Mean 100 100 Pulse Ox 85 94 94 Oxygen Delivery Method Room Air Nasal Cannula Nasal Cannula Oxygen Flow Rate (L/min) 4 4 04/18/22 18:11 04/18/22 18:11 Temperature Temperature Source Pulse Rate Respiratory Rate Respiratory Effort Short of Breath Respiratory Pattern Tachypnea Blood Pressure Blood Pressure Mean Pulse Ox 92 Oxygen Delivery Method Nasal Cannula Oxygen Flow Rate (L/min) 3 Weight Weight: 102.4 kg Body Mass Index (BMI) 35.3 Physical Exam Narrative Physical exam: General: Well-nourished, well-developed. Head: Normocephalic, atraumatic, no tenderness Eyes: Vision is grossly intact. EOMI ENT, no trauma, moist mucous membranes, no rhinorrhea Neck: Nontender, No thyromegaly. CVS: Regular rate and rhythm. S1-S2 present. No murmur, gallop or rub. Respiratory : clear to auscultation bilaterally, chest wall nontender, no wheezing Abdomen: Soft, nontender, nondistended, normal bowel sounds, no masses : Deferred Back: Nontender, no CVA tenderness, no midline spinal tenderness, deformities, step-offs Extremities: Nontender full range of motion, no trauma Skin: Pale, no trauma, abrasions Neuro: Alert, oriented, cranial nerves II through XII grossly intact. Psychiatry: Normal mood. Normal affect. Not depressed. Not anxious. Results Lab / Micro Data Attestation: I reviewed the patient's lab results. Result Diagrams: 04/18/22 18:15 04/18/22 18:15 Labs: Laboratory Results - last 24 hr 04/18/22 18:00: POC Glucose 42 L* 04/18/22 18:15: WBC 8.4, RBC 4.05 L, Hgb 11.9 L, Hct 36.1 L, MCV 89.1, MCH 29.4, MCHC 33.0, RDW Std Deviation 44.4 H, RDW Coeff of Elmer 13.5, Plt Count 302, MPV 9.9, Immature Gran % (Auto) 0.500, Neut % (Auto) 83.7 H, Lymph % (Auto) 10.1 L, [place] % (Auto) 5.4, Eos % (Auto) 0.1, Baso % (Auto) 0.2, Absolute Neuts (auto) 7.0, Absolute Lymphs (auto) 0.85, Nucleated RBC % 0 04/18/22 18:15: D-Dimer Quant (PE/DVT) 8.04 H* 04/18/22 18:15: Sodium 136, Potassium 4.2, Chloride 105, Carbon Dioxide 25.0, Anion Gap 6, BUN 83 H, Creatinine 2.63 H, Estim Creat Clear Calc 20.60, Est GFR (MDRD) Af Amer 30 L, Est GFR (MDRD) Non-Af 25 L, BUN/Creatinine Ratio 31.6 H, Glucose 59 L, Calcium 9.1, Troponin I High Sens 42 04/18/22 18:15: B-Natriuretic Peptide 28.8 04/18/22 18:38: POC Glucose 200 H Micro: Microbiology 04/18/22 18:20 Interface Orders Rapid RSV (DFA) - Final 04/18/22 18:20 Nasal Secretion SARS-CoV-2 & FLU Antigen (Rapid) - Final Radiology Impression Chest X-Ray 04/18/22 18:38 IMPRESSION: Bibasilar interstitial infiltrates. Question pneumonia. Electronically Signed: Jimmie Townsend DO at 18:53 EST Reading Location ID and State: [address] [place] [address] Tel [phone], Service support , Assessment & Plan Assessment/Plan (1) Hypoxia: (2) Elevated d-dimer: (3) Hypoglycemia: (4) Pneumonia: PLAN: Plan Pneumonia with hypoxia/COVID-19/elevated D-dimer Required oxygen supplementation in the emergency department. Review of record showed that on 04/14/2022 COVID-19 PCR was positive. On presentation on 04/18/2022 rapid antigen was negative. Repeat COVID-19 PCR Chest x-ray was visualized and interpreted.. Chest x-ray with bibasilar interstitial infiltrates I agree radiology interpretation. Decadron ordered. Patient started on Rocephin and azithromycin at the ED, continue. Check procalcitonin. D-dimer is markedly elevated at 8.04. With elevated D-dimer started on therapeutic dose of Lovenox. We will get bilateral lower extremity ultrasound. CBC showed normal white count, trend. Hypoglycemia Serial Accu-Cheks ordered. While admitted to the floor patient continued to have low blood glucose. Hypoglycemia protocol ordered. Hold all home hypoglycemic regimen. KALYN on CKD stage IIIa Creatinine on presentation was 2.63 Baseline creatinine around 1.55. CKD likely secondary to diabetes. Gentle IV hydration ordered. Urinary studies ordered. Avoid nephrotoxic's. De-escalate dose of home gabapentin Hypertension Blood pressure is stable Isosorbide held. Losartan held secondary to KALYN. As needed hydralazine ordered. Trend blood pressure and adjust blood pressure medications. DVT prophylaxis: Not indicated as patient has been started on therapeutic dose of Lovenox. Charges/Coding Visit Charges Inpatient E&M: 10456 Init Hosp L3
[2022-04-18 21:08] LABS: Troponin-I HS 36 pg/mL (3.0-78.0)
[2022-04-18] MEDS: Ceftriaxone 1 GM/50 ML BAG IV (21:30)
[2022-04-18 21:53] LABS: Red Blood Cells-Urine 0 SEEN /hpf (0-5); Squamous Epithelial Cells - UA 0 SEEN /hpf (0-5); White Blood Cells 0 SEEN /hpf (0-5)
--- NOTE | 2022-04-18 22:22 | NM_ITS ---
CLINICAL: Male, 81 years old. ELEVATED D-DIMER NUCLEAR VENTILATION/PERFUSION - LUNG TECHNIQUE: The patient was administered 5.4 mCi of Tc MAA followed by a perfusion lung scan. The patient was administered 48.0 mCi of Tc DTPA aerosol followed by a ventilation lung scan. Comparison made to prior chest radiograph dated today. COMPARISON STUDIES : NM - None. CR - Not available for review at this time. CT - Not available for review at this time. MR - Not available for review at this time. FINDINGS: The pulmonary perfusion study demonstrates uniform perfusion throughout both lung alfaro. There are no demonstrated segmental or subsegmental perfusion defects The ventilation study demonstrates uniform ventilation throughout both lung alfaro. There are no segmental or subsegmental ventilation abnormalities. NM/Quant Lung Vent/Perf Scan IMPRESSION: Normal 99m Tc MAA pulmonary perfusion Tc DTPA aerosol ventilation imaging survey, according to revised PIOPED interpretive criteria. Electronically Signed: Jared Fay MD at 10:56 EST ,
[2022-04-18 22:30] LABS: Color, Urine Yellow (Yellow); Glucose, Dipstick Normal (Normal); Ketone-Dipstick 5 mg/dl (Negative); Leukocyte Esterase-Dipstick Negative /ul (Negative); Nitrite-Dipstick Negative (Negative); Occult Blood-Urine 10 /ul (Negative); Protein-Dipstick Negative (Negative); Urine Bilirubin Dipstick Negative (Negative); Urine Clarity Clear (Clear); Urine Urobilinogen Normal (Normal)
[2022-04-18 22:37] LABS: Bacteria RARE /hpf (None Seen)
[2022-04-18 22:38] LABS: Mucous, Urine RARE /hpf (<or=2+)
[2022-04-19] VITALS (13 sets, daily range): BP systolic 128–140; BP diastolic 60–77; PULSE 77–88; RESP 18; TEMP 36.6–37.2; O2SAT 92–96
[2022-04-19] MEDS: 0.9% Normal Saline 1,000 ML 75 ML IV ×3 (00:30→22:59)
[2022-04-19] MEDS: Enoxaparin 100 MG/ML Syringe SC (00:30)
[2022-04-19 00:56] LABS: Troponin-I HS 35 pg/mL (3.0-78.0)
[2022-04-19 03:51] LABS: Bedside Glucose 80 mg/dL (74-106)
[2022-04-19 03:51] LABS: Bedside Glucose 56 mg/dL (74-106)
[2022-04-19 07:20] LABS: Bedside Glucose 133 mg/dL (74-106)
[2022-04-19 07:43] LABS: Absolute Lymphocyte Count 1.08 X10^3/uL (0.83-4.51); Absolute Neutrophil Count 6.1 X10^3/uL (2.0-7.7); Basophil# 0.01 X10^3/uL; Basophil% 0.1 % (0-1); Eosinophil# 0.06 X10^3/uL; Eosinophils% 0.8 % (0-5); Hematocrit 33.6 % (40-54); Hemoglobin 11.1 g/dL (13.0-16.5); Lymphocyte # 1.08 X10^3/ul (0.83-4.51); Lymphocyte % 13.6 % (19-41); Mean Corpuscular Volume 90.8 fL (80-94); Mean Platelet Vol. 9.1 fl (6.2-12.0); Monocyte# 0.59 X10^3/uL; Monocyte% 7.4 % (0-10); NRBC Flagged by Analyzer 0 % (0-5); Neutrophil # 6.14 X10^3/uL (2.7-7.7); Neutrophil % 77.6 % (47-70); Platelet Count 310 K/mm3 (150-450); RBC Distribution Width CV 13.6 % (11.6-14.6); RBC Distribution Width SD 45.3 fl (35.1-43.9); White Blood Count 7.9 K/mm3 (4.4-11.0)
[2022-04-19 08:08] LABS: Anion Gap 8 (5-15); BUN 69 mg/dL (7-18); BUN/Creat Ratio 33.2 RATIO (10-20); Calcium,Total 8.1 mg/dL (8.5-10.1); Chloride 108 mmol/L (98-107); Creatinine, Serum 2.08 mg/dL (0.70-1.30); EST Glomerular Filtration Rate 33 mL/min (>60); Est Glom Filt Rate - Afr Amer 40 mL/min (>60); Estimated Creatinine Clearance 25.13 ml/min; Glucose 109 mg/dL (74-106); Potassium 3.9 mmol/L (3.5-5.1); Sodium Level 139 mmol/L (136-145)
[2022-04-19 08:18] LABS: Procalcitonin 0.04 ng/mL (0.00-0.09)
[2022-04-19] MEDS: Carvedilol 6.25 MG Tablet PO (09:11)
[2022-04-19] MEDS: dexAMETHasone 4 MG Tablet 6 MG PO (09:11)
[2022-04-19] MEDS: Famotidine 20 MG Tablet 40 MG PO (09:12)
[2022-04-19] MEDS: Isosorbide Mononitrate 60 MG Tablet PO (09:12)
[2022-04-19] MEDS: Cholecalciferol (VIT D3) 25 MCG TABLET (1,000 UNITS) 50 MCG PO (09:12)
--- NOTE | 2022-04-19 10:07 | RAD_ITS ---
EXAM: XR CHEST, 1 VIEW CLINICAL INDICATION: RULE OUT PNEUMONIA TECHNIQUE: Frontal view of the chest. This report was created using [employer] report generation technology. COMPARISON: 04/18/2022. FINDINGS: LUNGS AND PLEURAL SPACES: Persistent ill-defined interstitial infiltrates in the periphery of both lungs, right greater than left. No pneumothorax. No effusion. HEART: Mild cardiomegaly is unchanged. MEDIASTINUM: Central airways and mediastinal contour are unremarkable. BONES/JOINTS: Unremarkable. SOFT TISSUES: Unremarkable. RAD/Chest 1 View IMPRESSION: 1. Interstitial pneumonitis in both lungs, right greater than left. This is worrisome for Covid-19 pneumonia. 2. No interval change when compared to 04/18/2022. Electronically Signed: Donald Kinsey MD at 10:36 EST ,
[2022-04-19 10:09] LABS: Alkaline Phosphatase 50 U/L (45-117)
--- NOTE | 2022-04-19 12:00 | CASEMGMT ---
NADIA CARDENAS E[employer]ATOR [employer] CM placed call to pt's room for initial transition planning/care coordination assessment. NADIA CARDENAS introduced self and role at [facility]. Pt voices understanding and consents to assessment at this time. Pt is A/O at this time and answers all questions appropriately. Care providers, pharmacy, and demographics verified/updated at this time. PCP:Dr Bhakta Specialists: none Preferred Pharmacy: [facility] Insurance: [email or web address] [facility] Prescription Benefit: Yes Living Will/HPOA: Has LW and HCPOA. He states his dtr, Lashell, is primary POA and his sister, Lisbeth, is 1st alternative. LNOK: Dtr/POA, Lashell Living Arrangements: Lives alone. He states he is independent @ baseline w/ADL's and IADL's, but has been weak w/recent illness. Transportation: Pt states drives self and states no transportation concerns at this time. DME: States has the following DME: cane. He used to have a glucometer, but he has not used it in a long time and does not know where it is. Pt does not have home O2 and does not have pulse ox. Pt states, if he would end up discharging home and need Home O2, he does not have a preference of DME company. HHC/SNF: No hx of either. Pt states he would like to go somewhere for therapy. He states he has no preference of SNF. NADIA CARDENAS made him aware a list of choices will be provided to choose from. Nai MCDONOUGH, made aware. PLAN: SNF, course of tx and pending progress w/therapy. PT/OT evals pending. Sulema DANIEL RN, CM
--- NOTE | 2022-04-19 13:12 | PCM.PN.HOSP ---
Subjective Subjective Patient was seen and examined today, his PCR test was positive for COVID-19, patient had a previous PCR was also positive on 04/14/2022, he states he has had symptoms of COVID since last Thursday04/14/22. I have placed him on remdesivir and baricitinib, he is already on dexamethasone. I have elected to stop his Rocephin and Zithromax, chest x-ray today showed changes bilaterally suggestive of COVID-19 pneumonia. Objective Data Objective Data Vital Signs: Vital Signs Temp Pulse Resp BP Pulse Ox O2 Del Method O2 Flow Rate 98.9 F 86 18 130/60 H 92 Nasal Cannula 3 04/19/22 11:00 04/19/22 11:00 04/19/22 11:00 04/19/22 11:00 04/19/22 11:00 04/19/22 11:00 04/19/22 12:20 Oxygen Flow Rate (L/min) 3 Oxygen Delivery Method Nasal Cannula Weight: 96.3 kg Body Mass Index (BMI) 34.2 Intake & Output: Intake and Output for Last 24 Hours 04/17/22 04/18/22 04/19/22 23:59 23:59 23:59 Intake Total 1050 / 1050 1968.75 / 1968.75 Output Total 0 / 0 200 / 200 Balance 1050 / 1050 1768.75 / 1768.75 Lab / Micro Data Result Diagrams: 04/19/22 07:12 04/19/22 07:12 Labs: Laboratory Results - last 24 hr 04/18/22 18:00: POC Glucose 42 L* 04/18/22 18:15: WBC 8.4, RBC 4.05 L, Hgb 11.9 L, Hct 36.1 L, MCV 89.1, MCH 29.4, MCHC 33.0, RDW Std Deviation 44.4 H, RDW Coeff of Elmer 13.5, Plt Count 302, MPV 9.9, Immature Gran % (Auto) 0.500, Neut % (Auto) 83.7 H, Lymph % (Auto) 10.1 L, [place] % (Auto) 5.4, Eos % (Auto) 0.1, Baso % (Auto) 0.2, Absolute Neuts (auto) 7.0, Absolute Lymphs (auto) 0.85, Nucleated RBC % 0 04/18/22 18:15: D-Dimer Quant (PE/DVT) 8.04 H* 04/18/22 18:15: Sodium 136, Potassium 4.2, Chloride 105, Carbon Dioxide 25.0, Anion Gap 6, BUN 83 H, Creatinine 2.63 H, Estim Creat Clear Calc 20.60, Est GFR (MDRD) Af Amer 30 L, Est GFR (MDRD) Non-Af 25 L, BUN/Creatinine Ratio 31.6 H, Glucose 59 L, Calcium 9.1, Troponin I High Sens 42 04/18/22 18:15: B-Natriuretic Peptide 28.8 04/18/22 18:38: POC Glucose 200 H 04/18/22 20:27: Troponin I High Sens 36 04/18/22 21:46: Urine Color Yellow, Urine Clarity Clear, Urine pH 5.0, Ur Specific [place] 1.020, Urine Protein Negative, Urine Glucose (UA) Normal, Urine Ketones 5 H, Urine Occult Blood 10 H, Urine Nitrite Negative, Urine Bilirubin Negative, Urine Urobilinogen Normal, Ur Leukocyte Esterase Negative, Urine RBC 0 SEEN, Urine WBC 0 SEEN, Ur Squamous Epith Cells 0 SEEN, Urine Bacteria RARE, Urine Mucus RARE 04/19/22 00:30: Troponin I High Sens 35 04/19/22 02:30: POC Glucose 56 L 04/19/22 03:02: POC Glucose 80 04/19/22 05:59: COVID-19 (VISHAL) Detected 04/19/22 06:34: POC Glucose 133 H 04/19/22 07:12: WBC 7.9, RBC 3.70 L, Hgb 11.1 L, Hct 33.6 L, MCV 90.8, MCH 30.0, MCHC 33.0, RDW Std Deviation 45.3 H, RDW Coeff of Elmer 13.6, Plt Count 310, MPV 9.1, Immature Gran % (Auto) 0.500, Neut % (Auto) 77.6 H, Lymph % (Auto) 13.6 L, Jackson % (Auto) 7.4, Eos % (Auto) 0.8, Baso % (Auto) 0.1, Absolute Neuts (auto) 6.1, Absolute Lymphs (auto) 1.08, Nucleated RBC % 0 04/19/22 07:12: Sodium 139, Potassium 3.9, Chloride 108 H, Carbon Dioxide 23.0, Anion Gap 8, BUN 69 H, Creatinine 2.08 H, Estim Creat Clear Calc 25.13, Est GFR (MDRD) Af Amer 40 L, Est GFR (MDRD) Non-Af 33 L, BUN/Creatinine Ratio 33.2 H, Glucose 109 H, Calcium 8.1 L 04/19/22 07:12: Procalcitonin 0.04 04/19/22 07:12: Alkaline Phosphatase 50 Micro: Microbiology 04/18/22 18:20 Interface Orders Rapid RSV (DFA) - Final 04/18/22 18:20 Nasal Secretion SARS-CoV-2 & FLU Antigen (Rapid) - Final Radiography Diagnostic Testing: Radiology Impression Chest X-Ray 04/18/22 18:38 IMPRESSION: Bibasilar interstitial infiltrates. Question pneumonia. Electronically Signed: Jimmie Townsend DO at 18:53 EST , Lung Scan-VQ NM 04/18/22 22:22 IMPRESSION: Normal 99m Tc MAA pulmonary perfusion Tc DTPA aerosol ventilation imaging survey, according to revised PIOPED interpretive criteria. Electronically Signed: Jared Fay MD at 10:56 EST , Chest X-Ray 04/19/22 10:07 IMPRESSION: 1. Interstitial pneumonitis in both lungs, right greater than left. This is worrisome for Covid-19 pneumonia. 2. No interval change when compared to 04/18/2022. Electronically Signed: Donald Kinsey MD at 10:36 EST , Physical Exam Const alert, oriented x3, no apparent distress and healthy appearing General Appearance: cooperative, well kempt and well developed Orientation / Consciousness: awake, oriented to person, oriented to place and oriented to time HEENT normocephalic and moist oral mucous membranes Eyes PERRL, EOMs intact bilaterally and conjunctivae normal Neck supple, no JVD and thyroid normal General: trachea midline Resp normal respiratory effort, no retractions, no use of accessory muscles and clear to auscultation bilaterally Auscultation: Negative for rales, rhonchi or wheezes Cardio regular rate, regular rhythm, S1 normal heart sound, S2 normal heart sound, no murmurs, no rub and no gallops GI normal to inspection, nondistended, normoactive bowel sounds, soft to palpation, non-tender and non-distended Extremity no clubbing, cyanosis or edema Skin no rashes or lesions noted General Skin Exam: no breakdown Neuro oriented x3, CN's II-XII intact bilaterally, no focal motor deficits and no sensory deficits noted Sensorium / Orientation: awake and alert Speech: speech normal Psych affect normal Assessment & Plan Assessment/Plan (1) COVID-19: PLAN: Plan 1. COVID-19 pneumonia-again patient was placed on baricitinib and remdesivir today, he will continue dexamethasone, patient is nonvaccinated. I will have pulmonary medicine see the patient tomorrow #2 hypoxia secondary to COVID-19 pneumonia-patient is currently on nasal cannula oxygen, pulse ox will be monitored #3 essential hypertension-patient will remain on his present medications #4 type 2 diabetes-blood sugars will be monitored, sliding scale insulin will be used if needed #5 hyperlipidemia-patient is on atorvastatin Charges/Coding Visit Charges Inpatient E&M: 45764 Subs Hosp L2
[2022-04-19 17:10] LABS: Bedside Glucose 316 mg/dL (74-106)
[2022-04-19 17:32] LABS: Osmolality, Urine 588 mOsm/KG
[2022-04-19] MEDS: Insulin Lispro 100 UNIT/ML INSULN.PEN SC ×2 (17:34→20:45)
[2022-04-19 17:36] LABS: Urine Sodium 40 mmol/L (Not Establ.)
[2022-04-19] MEDS: Atorvastatin Calcium 40 MG Tablet PO (20:46)
[2022-04-19] MEDS: Gabapentin 100 MG Capsule 200 MG PO (20:46)
[2022-04-20] VITALS (17 sets, daily range): BP systolic 143–176; BP diastolic 55–85; PULSE 61–79; RESP 18–20; TEMP 35.9–37.1; O2SAT 87–96
[2022-04-20 00:50] LABS: Bedside Glucose 247 mg/dL (74-106)
--- NOTE | 2022-04-20 06:58 | CON.PCM.CC_ITS ---
Assessment & Plan Assessment/Plan (1) COVID-19: PLAN: Plan RECOMMENDATIONS: 1. Wean supplemental oxygen to maintain saturations at or above 90%. 2. Continue remdesivir, Decadron baricitinib as ordered. 3. Continue Lovenox. 4. Encourage incentive spirometer use and mobilize patient as tolerated. 5. Perform walking oximetry study prior to consideration for discharge home. IMPRESSIONS: 1. COVID-19 pneumonia with associated hypoxia The patient presented to the hospital with several days of worsening malaise, lightheadedness and loss of appetite. The patient was subsequently found to be positive for COVID-19 with radiographic findings concerning for the aforementioned as well. He is currently doing well from a respiratory perspective on supplemental oxygen at 3 to 4 L/min. The patient has been initiated on appropriate therapy with remdesivir, Decadron and baricitinib, in light of his elevated inflammatory markers. Plan to continue the aforementioned supportive measures and wean supplemental oxygen to maintain saturations at or above 90%. Encourage incentive spirometer use and mobilize patient as tolerated. Continue Lovenox as ordered. 2. Obesity/hypertension/hyperlipidemia/diabetes mellitus Complicates care, management, recovery and prognosis. Continue home medications as indicated. This note was generated with [employer] dictation software. It may contain incorrect words, spelling, and punctuation that were not noted in checking the note before signing. HPI Consult Data Date of Consult: 04/20/22 HPI Narrative Reason for Consultation: COVID-19 pneumonia HPI Narrative: The patient is an 81-year-old male, with a history as outlined below, who presented to the emergency department on April 18 via EMS with generalized malaise, lightheadedness and loss of appetite of approximately 5 days duration. The patient has a known history of diabetes mellitus/chronic kidney disease and former tobacco dependency. He denied any recent sick contact exposure. On presentation to the emergency department, the patient was noted to be afebrile hemodynamically stable. He was initially documented to be saturating 85% on room air. The patient was placed on supplemental oxygen at 4 L/min. Initial laboratory evaluation revealed no evidence of a leukocytosis. D-dimer was elevated at 8.04. Chemistry profile was notable for a creatinine of 2.08. Procalcitonin was negative. Urine analysis was unremarkable. COVID PCR was positive. Chest x-ray demonstrated bilateral interstitial infiltrates. The pat ient was placed on remdesivir, Decadron and baricitinib. He was admitted to the progressive care unit for further management. ON LICENSE OF [facility] Medical History Diabetes Hypertension Home Medications atorvastatin 80 mg tablet 40 mg PO QHS CHOLESTEROL 01/31/15 [History Last Taken Unknown] glimepiride 4 mg tablet 4 mg PO DAILY DIABETES 01/31/15 [History Last Taken Unknown] isosorbide mononitrate 60 mg tablet,extended release 24 hr 60 mg PO DAILY BLOOD PRESSURE 01/31/15 [History Last Taken 04/17/22] losartan 25 mg tablet 25 mg PO DAILY BLOOD PRESSURE 01/31/15 [History Last Taken 04/17/22] cholecalciferol (vitamin D3) 50 mcg (2,000 unit) capsule (Vitamin D3) 2,000 unit PO DAILY SUPPLEMENT 07/13/18 [History Last Taken 04/18/22] famotidine 40 mg tablet 40 mg PO DAILY GERD 07/13/18 [History Last Taken Unknown] gabapentin 300 mg capsule 300 mg PO QHS NEUROPATHY 07/13/18 [History Last Taken 04/17/22] albuterol sulfate 90 mcg/actuation aerosol inhaler (Ventolin HFA) 2 puff inhalation Q4H PRN PRN SOB/wheeZing ##1 07/14/18 [Rx Last Taken 04/17/22] insulin degludec 100 unit/mL (3 mL) subcutaneous pen (Tresiba FlexTouch U-100 insulin) 40 unit subcut DAILY diabetes 02/22/22 [History Last Taken 04/17/22] carvedilol 6.25 mg tablet (Coreg) 6.25 mg PO DAILY blood pressure 04/18/22 [History Last Taken Unknown] Allergy/AdvReac Type Severity Reaction Status Date / Time No Known Allergies Allergy Verified 04/18/22 17:53 Family History Other Diabetes Heart disease Surgical History History of appendectomy Social History Smoking Status: Former smoker ROS Constitutional Constitutional: Reports fatigue, malaise and weakness Eyes Eyes: Denies blurry vision or change in vision ENT HEENT: Denies dizziness, dysphagia, epistaxis or headache(s) Cardiovascular Cardiovascular: Reports dyspnea; Denies chest pain Respiratory/Chest Respiratory/Chest: Reports cough Gastrointestinal Gastrointestinal: Denies abdominal pain, diarrhea, nausea or vomiting Genitourinary Genitourinary: Denies difficulty urinating Musculoskeletal Musculoskeletal: Denies arthralgias, back pain or joint pain Integumentary Integumentary: Denies lesions, rash or skin ulcer Neurologic Neurologic: Denies abnormal gait or abnormal speech Psychiatric Psychiatric: Denies anxiety or depression Endocrine Endocrinology: Reports fatigue Hematologic/Lymphatic Hematologic/Lymphatic: Denies easy bleeding or easy bruising Physical Exam Const alert and no apparent distress General Appearance: cooperative Nutritional Appearance: obese HEENT normocephalic, head/scalp atraumatic and moist oral mucous membranes Eyes PERRL, EOMs intact bilaterally and conjunctivae normal Neck supple General: trachea midline Chest inspection of chest normal Resp normal respiratory effort Auscultation: diminished lung sounds; Negative for rales, rhonchi or wheezes Cardio regular rate and regular rhythm GI normal to inspection, nondistended, normoactive bowel sounds Extremity no clubbing, cyanosis or edema Skin no rashes or lesions noted Neuro oriented x3, CN's II-XII intact bilaterally and moves all extremities Psych cooperative and affect normal Lab / Micro Data Result Diagrams: 04/20/22 06:50 04/19/22 07:12 Labs: Laboratory Results - last 24 hr 04/18/22 17:20: Urine Osmolality 588, Ur Random Sodium 40, Urine Creatinine 97.50 04/19/22 05:59: COVID-19 (VISHAL) Detected 04/19/22 06:34: POC Glucose 133 H 04/19/22 07:12: WBC 7.9, RBC 3.70 L, Hgb 11.1 L, Hct 33.6 L, MCV 90.8, MCH 30.0, MCHC 33.0, RDW Std Deviation 45.3 H, RDW Coeff of Elmer 13.6, Plt Count 310, MPV 9.1, Immature Gran % (Auto) 0.500, Neut % (Auto) 77.6 H, Lymph % (Auto) 13.6 L, [place] % (Auto) 7.4, Eos % (Auto) 0.8, Baso % (Auto) 0.1, Absolute Neuts (auto) 6.1, Absolute Lymphs (auto) 1.08, Nucleated RBC % 0 04/19/22 07:12: Sodium 139, Potassium 3.9, Chloride 108 H, Carbon Dioxide 23.0, Anion Gap 8, BUN 69 H, Creatinine 2.08 H, Estim Creat Clear Calc 25.13, Est GFR (MDRD) Af Amer 40 L, Est GFR (MDRD) Non-Af 33 L, BUN/Creatinine Ratio 33.2 H, Glucose 109 H, Calcium 8.1 L 04/19/22 07:12: Procalcitonin 0.04 04/19/22 07:12: Alkaline Phosphatase 50 04/19/22 16:50: POC Glucose 316 H 04/19/22 20:44: POC Glucose 247 H Micro: Microbiology 04/18/22 21:46 Urine, Clean Catch Legionella Antigen - Final 04/18/22 21:46 Urine, Clean Catch Streptococcus pneumoniae Antigen (M - Final Radiology Impression Lung Scan-VQ NM 04/18/22 22:22 IMPRESSION: Normal 99m Tc MAA pulmonary perfusion Tc DTPA aerosol ventilation imaging survey, according to revised PIOPED interpretive criteria. Electronically Signed: Jared Fay MD at 10:56 EST , Chest X-Ray 04/19/22 10:07 IMPRESSION: 1. Interstitial pneumonitis in both lungs, right greater than left. This is worrisome for Covid-19 pneumonia. 2. No interval change when compared to 04/18/2022. Electronically Signed: Donald Kinsey MD at 10:36 EST , Charges/Coding Visit Charges Inpatient E&M: 48942 Init Hosp L3
[2022-04-20 07:01] LABS: Bedside Glucose 138 mg/dL (74-106)
[2022-04-20 07:42] LABS: Hematocrit 30.8 % (40-54); Hemoglobin 10.3 g/dL (13.0-16.5); Mean Corp Hgb Conc 33.4 g/dL (32-36); Mean Corpuscular Hgb 30.1 pg (27.0-32.0); Mean Corpuscular Volume 90.1 fL (80-94); Mean Platelet Vol. 9.3 fl (6.2-12.0); Platelet Count 290 K/mm3 (150-450); RBC Distribution Width CV 13.4 % (11.6-14.6); RBC Distribution Width SD 44.1 fl (35.1-43.9); Red Blood Count 3.42 M/mm3 (4.6-6.2); White Blood Count 8.1 K/mm3 (4.4-11.0)
[2022-04-20 08:07] LABS: ALB/GLOB Ratio 0.5 RATIO (0.9-2.4); AST(SGOT) 46 U/L (15-37); Alanine Aminotransfer ALT/SGPT 47 U/L (16-61); Albumin, Serum 2.3 g/dL (3.2-5.0); Alkaline Phosphatase 45 U/L (45-117); Anion Gap 4 (5-15); BUN 57 mg/dL (7-18); BUN/Creat Ratio 33.5 RATIO (10-20); Calcium,Total 8.1 mg/dL (8.5-10.1); Chloride 113 mmol/L (98-107); EST Glomerular Filtration Rate 41 mL/min (>60); Est Glom Filt Rate - Afr Amer 50 mL/min (>60); Estimated Creatinine Clearance 30.75 ml/min; Globulin 4.4 g/dL (2.2-4.2); Glucose 142 mg/dL (74-106); Potassium 4.3 mmol/L (3.5-5.1); Protein, Total 6.7 g/dL (6.4-8.2); Sodium Level 140 mmol/L (136-145)
[2022-04-20] MEDS: dexAMETHasone 4 MG Tablet 6 MG PO (10:19)
[2022-04-20] MEDS: Carvedilol 6.25 MG Tablet PO (10:19)
[2022-04-20] MEDS: Famotidine 20 MG Tablet 40 MG PO (10:19)
[2022-04-20] MEDS: Enoxaparin 100 MG/ML Syringe SC (10:19)
[2022-04-20] MEDS: Isosorbide Mononitrate 60 MG Tablet PO (10:19)
[2022-04-20] MEDS: Cholecalciferol (VIT D3) 25 MCG TABLET (1,000 UNITS) 50 MCG PO (10:20)
[2022-04-20] MEDS: Insulin Lispro 100 UNIT/ML INSULN.PEN SC ×3 (11:34→22:13)
[2022-04-20] MEDS: 0.9% Normal Saline 1,000 ML 75 ML IV ×2 (11:37→23:48)
[2022-04-20 12:10] LABS: Bedside Glucose 174 mg/dL (74-106)
--- NOTE | 2022-04-20 12:16 | PN.HOSP_ITS ---
Subjective Subjective Patient was seen and examined today, he is currently on 2 L via nasal cannula, he appears comfortable at rest. Patient has no complaints of any fevers or chills. Objective Data Objective Data Vital Signs: Vital Signs Temp Pulse Resp BP Pulse Ox O2 Del Method O2 Flow Rate 97.8 F 78 20 H 143/55 H 93 Nasal Cannula 2 04/20/22 09:09 04/20/22 09:09 04/20/22 09:09 04/20/22 09:09 04/20/22 11:39 04/20/22 11:39 04/20/22 11:39 Oxygen Flow Rate (L/min) 2 Oxygen Delivery Method Nasal Cannula Weight: 96.3 kg Body Mass Index (BMI) 34.2 Intake & Output: Intake and Output for Last 24 Hours 04/18/22 04/19/22 04/20/22 23:59 23:59 23:59 Intake Total 1050 / 1050 3970.00 / 3970.00 1437.5 / 1437.5 Output Total 0 / 0 1700 / 1700 400 / 400 Balance 1050 / 1050 2270.00 / 2270.00 1037.5 / 1037.5 Lab / Micro Data Result Diagrams: 04/20/22 06:50 04/20/22 06:50 Labs: Laboratory Results - last 24 hr 04/18/22 17:20: Urine Osmolality 588, Ur Random Sodium 40, Urine Creatinine 97.50 04/19/22 16:50: POC Glucose 316 H 04/19/22 20:44: POC Glucose 247 H 04/20/22 06:33: POC Glucose 138 H 04/20/22 06:50: WBC 8.1, RBC 3.42 L, Hgb 10.3 L, Hct 30.8 L, MCV 90.1, MCH 30.1, MCHC 33.4, RDW Std Deviation 44.1 H, RDW Coeff of Elmer 13.4, Plt Count 290, MPV 9.3 04/20/22 06:50: Sodium 140, Potassium 4.3, Chloride 113 H, Carbon Dioxide 23.0, Anion Gap 4 L, BUN 57 H, Creatinine 1.70 H, Estim Creat Clear Calc 30.75, Est GFR (MDRD) Af Amer 50 L, Est GFR (MDRD) Non-Af 41 L, BUN/Creatinine Ratio 33.5 H , Glucose 142 H, Calcium 8.1 L, Total Bilirubin 0.50, AST 46 H, ALT 47, Alkaline Phosphatase 45, Total Protein 6.7, Albumin 2.3 L, Globulin 4.4 H, [place] min/Globulin Ratio 0.5 L 04/20/22 06:50: C-React Prot Ext Range 36.40 H 04/20/22 11:33: POC Glucose 174 H Micro: Microbiology 04/18/22 21:46 Urine, Clean Catch Legionella Antigen - Final 04/18/22 21:46 Urine, Clean Catch Streptococcus pneumoniae Antigen (M - Final 04/18/22 18:20 Interface Orders Rapid RSV (DFA) - Final 04/18/22 18:20 Nasal Secretion SARS-CoV-2 & FLU Antigen (Rapid) - Final Physical Exam Const alert, oriented x3, no apparent distress and healthy appearing General Appearance: cooperative, well kempt and well developed Orientation / Consciousness: awake, oriented to person, oriented to place and oriented to time HEENT normocephalic and moist oral mucous membranes Eyes PERRL, EOMs intact bilaterally and conjunctivae normal Neck supple, no JVD and thyroid normal General: trachea midline Resp normal respiratory effort and clear to auscultation bilaterally Auscultation: Negative for rales, rhonchi or wheezes Cardio regular rate, regular rhythm, S1 normal heart sound, S2 normal heart sound, no murmurs, no rub and no gallops GI normal to inspection, nondistended, normoactive bowel sounds, soft to palpation, non-tender and non-distended Extremity no clubbing, cyanosis or edema Skin no rashes or lesions noted General Skin Exam: no breakdown Neuro oriented x3, CN's II-XII intact bilaterally, moves all extremities, no focal motor deficits and no sensory deficits noted Sensorium / Orientation: awake and alert Speech: speech normal Psych affect normal Assessment & Plan Assessment/Plan (1) COVID-19: PLAN: Plan 1. COVID-19 pneumonia-patient will remain on Decadron, remdesivir, and baricitinib, pulmonary medicine is participating in his care #2 hypoxia secondary to COVID-19 pneumonia-patient is currently on nasal cannula oxygen, pulse ox will be monitored #3 essential hypertension-patient will remain on his present medications #4 type 2 diabetes-blood sugars will be monitored, sliding scale insulin will be used if needed #5 hyperlipidemia-patient is on atorvastatin Charges/Coding Visit Charges Inpatient E&M: 26602 Subs Hosp L2
[2022-04-20 17:16] LABS: Bedside Glucose 169 mg/dL (74-106)
[2022-04-20] MEDS: Gabapentin 100 MG Capsule 200 MG PO (22:13)
[2022-04-20] MEDS: Atorvastatin Calcium 40 MG Tablet PO (22:13)
[2022-04-20] MEDS: hydrALAZINE 20 MG/ML Vial 5 MG IV (22:30)
[2022-04-20] MEDS: 0.9% Saline Lock 10 ML Syringe IV (22:30)
[2022-04-20] MEDS: MELATONIN 3 MG TABLET PO (22:30)
[2022-04-20 22:46] LABS: Bedside Glucose 214 mg/dL (74-106)
[2022-04-21] VITALS (18 sets, daily range): BP systolic 137–186; BP diastolic 68–86; PULSE 62–86; RESP 16–18; TEMP 36.2–36.9; O2SAT 83–95
[2022-04-21 07:04] LABS: Absolute Lymphocyte Count 1.13 X10^3/uL (0.83-4.51); Absolute Neutrophil Count 6.5 X10^3/uL (2.0-7.7); Hematocrit 30.9 % (40-54); Lymphocyte # 1.13 X10^3/ul (0.83-4.51); Lymphocyte % 14.1 % (19-41); Mean Corp Hgb Conc 32.4 g/dL (32-36); Mean Corpuscular Hgb 29.2 pg (27.0-32.0); Mean Corpuscular Volume 90.4 fL (80-94); Mean Platelet Vol. 8.8 fl (6.2-12.0); Monocyte# 0.38 X10^3/uL; Monocyte% 4.7 % (0-10); NRBC Flagged by Analyzer 0 % (0-5); Neutrophil # 6.46 X10^3/uL (2.7-7.7); Neutrophil % 80.6 % (47-70); Platelet Count 269 K/mm3 (150-450); RBC Distribution Width CV 13.5 % (11.6-14.6); RBC Distribution Width SD 44.5 fl (35.1-43.9); Red Blood Count 3.42 M/mm3 (4.6-6.2)
[2022-04-21 07:20] LABS: Bedside Glucose 122 mg/dL (74-106)
[2022-04-21 07:27] LABS: ALB/GLOB Ratio 0.5 RATIO (0.9-2.4); AST(SGOT) 33 U/L (15-37); Alanine Aminotransfer ALT/SGPT 40 U/L (16-61); Albumin, Serum 2.1 g/dL (3.2-5.0); Alkaline Phosphatase 41 U/L (45-117); Anion Gap 5 (5-15); BUN 43 mg/dL (7-18); BUN/Creat Ratio 32.8 RATIO (10-20); Calcium,Total 8.1 mg/dL (8.5-10.1); Chloride 111 mmol/L (98-107); Creatinine, Serum 1.31 mg/dL (0.70-1.30); EST Glomerular Filtration Rate 56 mL/min (>60); Est Glom Filt Rate - Afr Amer 67 mL/min (>60); Estimated Creatinine Clearance 39.91 ml/min; Globulin 4.1 g/dL (2.2-4.2); Glucose 132 mg/dL (74-106); Potassium 4.4 mmol/L (3.5-5.1); Protein, Total 6.2 g/dL (6.4-8.2); Sodium Level 140 mmol/L (136-145)
[2022-04-21] MEDS: Famotidine 20 MG Tablet 40 MG PO (08:40)
[2022-04-21] MEDS: Carvedilol 6.25 MG Tablet PO (08:40)
[2022-04-21] MEDS: Isosorbide Mononitrate 60 MG Tablet PO (08:40)
[2022-04-21] MEDS: dexAMETHasone 4 MG Tablet 6 MG PO (08:40)
[2022-04-21] MEDS: Enoxaparin 100 MG/ML Syringe SC (08:41)
[2022-04-21] MEDS: Cholecalciferol (VIT D3) 25 MCG TABLET (1,000 UNITS) 50 MCG PO (09:55)
--- NOTE | 2022-04-21 10:07 | CASEMGMT ---
SW Note SW met with patient and introduced herself as [facility] [employer] Markup Clerk. SW provided patient with in network SNF to review with patient. Patient reports wanting to return home and not being interested in SNF or HH because he can care for himself. Plan: TBD based on progress with therapy Genevieve WESTBROOK,ADITYA
[2022-04-21] MEDS: Insulin Lispro 100 UNIT/ML INSULN.PEN SC ×3 (11:18→21:07)
[2022-04-21 11:45] LABS: Bedside Glucose 270 mg/dL (74-106)
--- NOTE | 2022-04-21 13:42 | PCM.PN.INT ---
Assessment & Plan Assessment/Plan (1) COVID-19: PLAN: Plan RECOMMENDATIONS: 1. Wean supplemental oxygen to maintain saturations at or above 90%. 2. Continue remdesivir (04/23/2022), Decadron (04/29/2022), and baricitinib (05/02/2022) as ordered. 3. Continue Lovenox. 4. Encourage incentive spirometer use and mobilize patient as tolerated. 5. Perform walking oximetry study prior to consideration for discharge home. 6. Okay to discharge from a pulmonary perspective if able to ambulate on 6 L or less 7. Cannot exclude the need for a short-term rehab versus home health IMPRESSIONS: 1. COVID-19 pneumonia with associated hypoxia The patient presented to the hospital with several days of worsening malaise, lightheadedness and loss of appetite. The patient was subsequently found to be positive for COVID-19 with radiographic findings concerning for the aforementioned as well. He is currently doing well from a respiratory perspective on supplemental oxygen at 2 L/min. The patient has been initiated on appropriate therapy with remdesivir, Decadron and baricitinib, in light of his elevated inflammatory markers. Plan to continue the aforementioned supportive measures and wean supplemental oxygen to maintain saturations at or above 90%. Encourage incentive spirometer use and mobilize patient as tolerated. Continue Lovenox as ordered. Patient will likely need pulmonary function test as an outpatient for quantification clarification of lung function. However, patient is on minimal nasal cannula and may be able to be discharged if able to ambulate on 6 L or less 2. Obesity/hypertension/hyperlipidemia/diabetes mellitus/advanced age Complicates care, management, recovery and prognosis. Continue home medications as indicated. Full CODE STATUS was verified, but patient appears to be improving on current therapy. Some of respiratory limitations may be secondary to obesity Subjective Subjective Patient did well overnight. Patient overall feels subjectively unchanged compared to previous. Patient is still requiring minimal nasal cannula oxygen. Patient does report significant dyspnea with standing. Patient states that he lives independently and is concerned with his ability to move around. Objective Data Objective Data Vital Signs: Vital Signs Temp Pulse Resp BP Pulse Ox O2 Del Method O2 Flow Rate 36.6 C 62 16 137/72 H 93 Nasal Cannula 2 04/21/22 11:33 04/21/22 11:47 04/21/22 11:33 04/21/22 11:33 12/05/22 11:33 04/21/22 11:33 04/21/22 11:33 Oxygen Flow Rate (L/min) 2 Oxygen Delivery Method Nasal Cannula Weight: 96.3 kg Body Mass Index (BMI) 34.2 Intake & Output: Intake and Output for Last 24 Hours 04/19/22 04/20/22 04/21/22 23:59 23:59 23:59 Intake Total 3970.00 / 3970.00 2831.25 / 2831.25 1310 / 1310 Output Total 1700 / 1700 400 / 650 1185 / 1185 Balance 2270.00 / 2270.00 2431.25 / 2181.25 125 / 125 Lab / Micro Data Attestation: I reviewed the patient's lab results. Result Diagrams: 04/21/22 06:57 04/21/22 06:57 Labs: Laboratory Results - last 24 hr 04/20/22 16:47: POC Glucose 169 H 04/20/22 22:10: POC Glucose 214 H 04/21/22 06:42: POC Glucose 122 H 04/21/22 06:57: WBC 8.0, RBC 3.42 L, Hgb 10.0 L, Hct 30.9 L, MCV 90.4, MCH 29.2, MCHC 32.4, RDW Std Deviation 44.5 H, RDW Coeff of Elmer 13.5, Plt Count 269, MPV 8.8, Immature Gran % (Auto) 0.600, Neut % (Auto) 80.6 H, Lymph % (Auto) 14.1 L, [place] % (Auto) 4.7, Eos % (Auto) 0.0, Baso % (Auto) 0.0, Absolute Neuts (auto) 6.5, Absolute Lymphs (auto) 1.13, Nucleated RBC % 0 04/21/22 06:57: Sodium 140, Potassium 4.4, Chloride 111 H, Carbon Dioxide 24.0, Anion Gap 5, BUN 43 H, Creatinine 1.31 H, Estim Creat Clear Calc 39.91, Est GFR (MDRD) Af Amer 67, Est GFR (MDRD) Non-Af 56 L, BUN/Creatinine Ratio 32.8 H, Glucose 132 H, Calcium 8.1 L, Total Bilirubin 0.50, AST 33, ALT 40, Alkaline Phosphatase 41 L, Total Protein 6.2 L, Albumin 2.1 L, Globulin 4.1, Albumin/Globulin Ratio 0.5 L 04/21/22 11:18: POC Glucose 270 H Micro: Microbiology 04/18/22 21:46 Urine, Clean Catch Legionella Antigen - Final 04/18/22 21:46 Urine, Clean Catch Streptococcus pneumoniae Antigen (M - Final 04/18/22 18:20 Interface Orders Rapid RSV (DFA) - Final 04/18/22 18:20 Nasal Secretion SARS-CoV-2 & FLU Antigen (Rapid) - Final Radiography Diagnostic Testing: Radiology Impression Venous Doppler Study 04/18/22 20:58 Interpretation Summary No evidence for acute deep venous thrombosis bilateral lower extremities with patent and compressible bilateral great saphenous veins. Abbreviated COVID-19 protocol utilized Ordering Physician: Yifan Diamond Referring Physician: Kain Bhakta Chi Performed By: Sang Stone RVT Physical Exam Const alert, oriented x3 and no apparent distress General Appearance: cooperative Nutritional Appearance: obese HEENT normocephalic, head/scalp atraumatic and moist oral mucous membranes HEENT Narrative: Nasal cannula in place Eyes PERRL, EOMs intact bilaterally and conjunctivae normal Neck supple General: trachea midline Chest inspection of chest normal Resp normal respiratory effort Auscultation: diminished lung sounds; Negative for rales, rhonchi or wheezes Cardio regular rate, regular rhythm, S1 normal heart sound, S2 normal heart sound and no murmurs GI normal to inspection, nondistended, normoactive bowel sounds Extremity no clubbing, cyanosis or edema Skin no rashes or lesions noted Neuro oriented x3, CN's II-XII intact bilaterally and moves all extremities Psych cooperative and affect normal Charges/Coding Visit Charges Inpatient E&M: 08377 Subs Hosp L2
[2022-04-21] MEDS: 0.9% Normal Saline 1,000 ML 75 ML IV (13:49)
[2022-04-21] MEDS: Acetaminophen 500 MG Tablet PO (13:53)
--- NOTE | 2022-04-21 14:14 | PN.HOSP_ITS ---
Subjective Subjective Reports continued shortness of breath, minimal cough, no chest pain. Primarily gets winded with walking. No other complaints this a.m. Objective Data Objective Data Vital Signs: Vital Signs Temp Pulse Resp BP Pulse Ox O2 Del Method O2 Flow Rate 97.2 F L 70 16 138/78 H 95 Nasal Cannula 2 04/21/22 13:52 04/21/22 13:52 04/21/22 13:52 04/21/22 13:52 04/21/22 13:52 04/21/22 13:52 04/21/22 13:52 Oxygen Flow Rate (L/min) 2 Oxygen Delivery Method Nasal Cannula Weight: 96.3 kg Body Mass Index (BMI) 34.2 Intake & Output: Intake and Output for Last 24 Hours 04/19/22 04/20/22 04/21/22 23:59 23:59 23:59 Intake Total 3970.00 / 3970.00 2831.25 / 2831.25 1496.25 / 1496.25 Output Total 1700 / 1700 400 / 650 1185 / 1185 Balance 2270.00 / 2270.00 2431.25 / 2181.25 311.25 / 311.25 Lab / Micro Data Result Diagrams: 04/21/22 06:57 04/21/22 06:57 Labs: Laboratory Results - last 24 hr 04/20/22 16:47: POC Glucose 169 H 04/20/22 22:10: POC Glucose 214 H 04/21/22 06:42: POC Glucose 122 H 04/21/22 06:57: WBC 8.0, RBC 3.42 L, Hgb 10.0 L, Hct 30.9 L, MCV 90.4, MCH 29.2, MCHC 32.4, RDW Std Deviation 44.5 H, RDW Coeff of Elmer 13.5, Plt Count 269, MPV 8.8, Immature Gran % (Auto) 0.600, Neut % (Auto) 80.6 H, Lymph % (Auto) 14.1 L, [place] % (Auto) 4.7, Eos % (Auto) 0.0, Baso % (Auto) 0.0, Absolute Neuts (auto) 6.5, Absolute Lymphs (auto) 1.13, Nucleated RBC % 0 04/21/22 06:57: Sodium 140, Potassium 4.4, Chloride 111 H, Carbon Dioxide 24.0, Anion Gap 5, BUN 43 H, Creatinine 1.31 H, Estim Creat Clear Calc 39.91, Est GFR (MDRD) Af Amer 67, Est GFR (MDRD) Non-Af 56 L, BUN/Creatinine Ratio 32.8 H, Glucose 132 H, Calcium 8.1 L, Total Bilirubin 0.50, AST 33, ALT 40, Alkaline Phosphatase 41 L, Total Protein 6.2 L, Albumin 2.1 L, Globulin 4.1, Albumin/Globulin Ratio 0.5 L 04/21/22 11:18: POC Glucose 270 H Micro: Microbiology 04/18/22 21:46 Urine, Clean Catch Legionella Antigen - Final 04/18/22 21:46 Urine, Clean Catch Streptococcus pneumoniae Antigen (M - Final 04/18/22 18:20 Interface Orders Rapid RSV (DFA) - Final 04/18/22 18:20 Nasal Secretion SARS-CoV-2 & FLU Antigen (Rapid) - Final Radiography Diagnostic Testing: Radiology Impression Venous Doppler Study 04/18/22 20:58 Interpretation Summary No evidence for acute deep venous thrombosis bilateral lower extremities with patent and compressible bilateral great saphenous veins. Abbreviated COVID-19 protocol utilized Ordering Physician: Yifan Diamond Referring Physician: Kain Bhakta Chi Performed By: Sang Stone RVT Physical Exam Const alert and no apparent distress Constitutional Narrative: Oriented HEENT normocephalic and head/scalp atraumatic Eyes Eyes Narrative: EOM grossly intact, anicteric Neck supple Resp normal respiratory effort and clear to auscultation bilaterally Cardio regular rate and regular rhythm GI soft to palpation, non-tender and non-distended Extremity Extremity Narrative: No edema appreciated Neuro moves all extremities Neuro Narrative: No overt focal deficits appreciated Psych Psych Narrative: Cooperative Assessment & Plan Assessment/Plan (1) COVID-19: PLAN: Plan #COVID-19 pneumonia On Decadron until 04/29, remdesivir until 04/23, baricitinib until 05/02 Pulm following On 2 L of nasal cannula, became hypoxic again when this was taken off Remains short of breath on exertion Incentive spirometry #Hypoxia secondary to COVID-19 pneumonia Nasal cannula Continue monitoring pulse ox Will need to assess for O2 needs prior to DC #Hypertension Continue current medications #Type 2 diabetes mellitus Sliding scale insulin and glucose checks #Hyperlipidemia on atorvastatin #DVT ppx: Gary Becker MD Charges/Coding Visit Charges Inpatient E&M: 66831 Subs Hosp L2
[2022-04-21 15:56] LABS: Bedside Glucose 156 mg/dL (74-106)
[2022-04-21] MEDS: hydrALAZINE 20 MG/ML Vial 5 MG IV (21:06)
[2022-04-21] MEDS: Gabapentin 100 MG Capsule 200 MG PO (21:06)
[2022-04-21] MEDS: Atorvastatin Calcium 40 MG Tablet PO (21:07)
[2022-04-21] MEDS: 0.9% Saline Lock 10 ML Syringe IV (21:07)
[2022-04-21 22:35] LABS: Bedside Glucose 256 mg/dL (74-106)
[2022-04-22] VITALS (10 sets, daily range): BP systolic 129–148; BP diastolic 44–81; PULSE 62–82; RESP 16–18; TEMP 36.1–36.9; O2SAT 92–95
[2022-04-22 05:14] LABS: Absolute Lymphocyte Count 1.33 X10^3/uL (0.83-4.51); Absolute Neutrophil Count 6.4 X10^3/uL (2.0-7.7); Hematocrit 30.9 % (40-54); Hemoglobin 10.2 g/dL (13.0-16.5); Lymphocyte # 1.33 X10^3/ul (0.83-4.51); Lymphocyte % 16.1 % (19-41); Mean Corpuscular Hgb 29.5 pg (27.0-32.0); Mean Corpuscular Volume 89.3 fL (80-94); Mean Platelet Vol. 8.9 fl (6.2-12.0); Monocyte# 0.45 X10^3/uL; Monocyte% 5.4 % (0-10); NRBC Flagged by Analyzer 0 % (0-5); Neutrophil # 6.42 X10^3/uL (2.7-7.7); Neutrophil % 77.8 % (47-70); Platelet Count 267 K/mm3 (150-450); RBC Distribution Width CV 13.4 % (11.6-14.6); RBC Distribution Width SD 43.8 fl (35.1-43.9); Red Blood Count 3.46 M/mm3 (4.6-6.2); White Blood Count 8.3 K/mm3 (4.4-11.0)
[2022-04-22 05:47] LABS: ALB/GLOB Ratio 0.5 RATIO (0.9-2.4); AST(SGOT) 30 U/L (15-37); Alanine Aminotransfer ALT/SGPT 38 U/L (16-61); Albumin, Serum 2.1 g/dL (3.2-5.0); Alkaline Phosphatase 42 U/L (45-117); Anion Gap 6 (5-15); BUN 36 mg/dL (7-18); BUN/Creat Ratio 28.8 RATIO (10-20); Calcium,Total 8.2 mg/dL (8.5-10.1); Chloride 110 mmol/L (98-107); Creatinine, Serum 1.25 mg/dL (0.70-1.30); EST Glomerular Filtration Rate 59 mL/min (>60); Est Glom Filt Rate - Afr Amer 71 mL/min (>60); Estimated Creatinine Clearance 41.82 ml/min; Globulin 4.1 g/dL (2.2-4.2); Glucose 170 mg/dL (74-106); Potassium 4.6 mmol/L (3.5-5.1); Protein, Total 6.2 g/dL (6.4-8.2); Sodium Level 140 mmol/L (136-145)
[2022-04-22] MEDS: 0.9% Saline Lock 10 ML Syringe IV ×2 (06:56→21:53)
[2022-04-22] MEDS: Furosemide 20 MG/2 ML VIAL IV (06:56)
[2022-04-22 07:20] LABS: Bedside Glucose 135 mg/dL (74-106)
[2022-04-22] MEDS: Isosorbide Mononitrate 60 MG Tablet PO (10:11)
[2022-04-22] MEDS: Cholecalciferol (VIT D3) 25 MCG TABLET (1,000 UNITS) 50 MCG PO (10:11)
[2022-04-22] MEDS: Carvedilol 6.25 MG Tablet PO (10:11)
[2022-04-22] MEDS: dexAMETHasone 4 MG Tablet 6 MG PO (10:11)
[2022-04-22] MEDS: Acetaminophen 500 MG Tablet PO (10:11)
[2022-04-22] MEDS: Losartan Potassium 25 MG Tablet PO (10:12)
[2022-04-22] MEDS: Famotidine 20 MG Tablet 40 MG PO (10:12)
[2022-04-22] MEDS: Enoxaparin 100 MG/ML Syringe SC (10:12)
[2022-04-22] MEDS: Insulin Lispro 100 UNIT/ML INSULN.PEN SC ×3 (11:37→21:51)
[2022-04-22 12:11] LABS: Bedside Glucose 212 mg/dL (74-106)
--- NOTE | 2022-04-22 13:23 | PN.CC_ITS ---
Assessment & Plan Assessment/Plan (1) Pneumonia due to COVID-19 virus: PLAN: Good clinical response to triple therapy with Decadron, baricitinib, and remdesivir. No evidence of superimposed bacterial process; procalcitonin is normal. Cultures are negative. Continue Decadron at discharge for an additional 10 days to 2 weeks total, dis continue remdesivir and baricitinib at discharge. Close follow-up at discharge to ensure patient does not rebound after Decadron is discontinued. (2) Acute respiratory failure with hypoxemia: PLAN: Assess ambulatory portable oxygen needs just prior to discharge with an ambulatory oximetry by respiratory, otherwise he is stable to go home on 4 L/min nasal O2. Home O2 arrangement and follow-up per discharging hospitalist Recommend follow-up with primary care within a month after discharge to assess whether he continues to need oxygen, and assure COPD does not flare. Since patient is stable to be discharged on 4 L of oxygen, pulmonary will sign off. Please call if further input is necessary. Thank you for consulting us on your pleasant patient (3) COPD exacerbation: PLAN: Resume maintenance inhalers Monitor COPD closely as Decadron is discontinued Subjective Subjective Male, treated for COVID-19 hypoxic respiratory failure with remdesivir Decadron and baricitinib. His oxygen has been weaned to 4 L/min with 93% saturation. Vitals are stable, labs are unremarkable except for CRP of 36 negative procalcitonin BUN 36 creatinine 1.25. He can be discharged on supplemental oxygen as long as his ambulatory O2 requirements are less than or equal to 6 L/min. Objective Data Objective Data Vital Signs: Vital Signs Temp Pulse Resp BP Pulse Ox O2 Del Method O2 Flow Rate 98.4 F 82 18 129/44 H 93 Nasal Cannula 4 04/22/22 10:12 04/22/22 10:12 04/22/22 10:12 04/22/22 10:12 04/22/22 10:12 04/22/22 10:12 04/22/22 10:12 Oxygen Flow Rate (L/min) 4 Oxygen Delivery Method Nasal Cannula Weight: 212 lb 4.882 oz Body Mass Index (BMI) 34.2 Intake & Output: Intake and Output for Last 24 Hours 04/20/22 04/21/22 04/22/22 23:59 23:59 23:59 Intake Total 2831.25 / 2831.25 2148.75 / 2148.75 250 / 250 Output Total 400 / 650 1285 / 1285 300 / 300 Balance 2431.25 / 2181.25 863.75 / 863.75 -50 / -50 Lab / Micro Data Attestation: I reviewed the patient's lab results. Result Diagrams: 04/22/22 04:45 04/22/22 04:45 Labs: Laboratory Results - last 24 hr 04/21/22 15:29: POC Glucose 156 H 04/21/22 21:04: POC Glucose 256 H 04/22/22 04:45: WBC 8.3, RBC 3.46 L, Hgb 10.2 L, Hct 30.9 L, MCV 89.3, MCH 29.5, MCHC 33.0, RDW Std Deviation 43.8, RDW Coeff of Elmer 13.4, Plt Count 267, MPV 8.9, Immature Gran % (Auto) 0.700, Neut % (Auto) 77.8 H, Lymph % (Auto) 16.1 L, [place] % (Auto) 5.4, Eos % (Auto) 0.0, Baso % (Auto) 0.0, Absolute Neuts (auto) 6.4, Absolute Lymphs (auto) 1.33, Nucleated RBC % 0 04/22/22 04:45: Sodium 140, Potassium 4.6, Chloride 110 H, Carbon Dioxide 24.0, Anion Gap 6, BUN 36 H, Creatinine 1.25, Estim Creat Clear Calc 41.82, Est GFR (MDRD) Af Amer 71, Est GFR (MDRD) Non-Af 59 L, BUN/Creatinine Ratio 28.8 H, Glucose 170 H, Calcium 8.2 L, Total Bilirubin 0.40, AST 30, ALT 38, Alkaline Phosphatase 42 L, Total Protein 6.2 L, Albumin 2.1 L, Globulin 4.1, Albumin/Globulin Ratio 0.5 L 04/22/22 06:32: POC Glucose 135 H 04/22/22 11:35: POC Glucose 212 H Micro: Microbiology 04/18/22 21:46 Urine, Clean Catch Legionella Antigen - Final 04/18/22 21:46 Urine, Clean Catch Streptococcus pneumoniae Antigen (M - Final 04/18/22 18:20 Interface Orders Rapid RSV (DFA) - Final 04/18/22 18:20 Nasal Secretion SARS-CoV-2 & FLU Antigen (Rapid) - Final Radiography Diagnostic Testing: Personally reviewed film and report, it was consistent with COVID-19 pneumonia in all lung alfaro. No change from April. Physical Exam Const alert, oriented x3 and no apparent distress General Appearance: cooperative and well developed; Negative for in distress HEENT normocephalic and moist oral mucous membranes Mouth: oral and palatal mucosa normal Eyes EOMs intact bilaterally and no scleral icterus Neck full ROM Chest inspection of chest normal Resp normal respiratory effort Effort and Inspection: able to speak in complete sentences; Negative for actively coughing Auscultation: rales left base Cardio regular rate Heart Sounds: Negative for murmur GI normal to inspection, nondistended, normoactive bowel sounds Inspection: Negative for abdominal distention Auscultation: normoactive bowel sounds Extremity no clubbing, cyanosis or edema Skin no rashes or lesions noted Neuro oriented x3 and no focal motor deficits Psych cooperative and affect normal Speech: normal speech Charges/Coding Visit Charges Inpatient E&M: 39520 Subs Hosp L2
[2022-04-22 16:30] LABS: Bedside Glucose 171 mg/dL (74-106)
--- NOTE | 2022-04-22 17:39 | PCM.PN.HOSP ---
Subjective Subjective Continues to have shortness of breath, was bumped up to 4 L this morning. Still coughing, denied other complaints this morning Objective Data Objective Data Vital Signs: Vital Signs Temp Pulse Resp BP Pulse Ox O2 Del Method O2 Flow Rate 97.1 F L 65 16 133/81 H 95 Nasal Cannula 2 04/22/22 16:08 04/22/22 16:08 04/22/22 16:08 04/22/22 16:08 04/22/22 16:08 04/22/22 16:08 04/22/22 16:08 Oxygen Flow Rate (L/min) 2 Oxygen Delivery Method Nasal Cannula Weight: 96.3 kg Body Mass Index (BMI) 34.2 Intake & Output: Intake and Output for Last 24 Hours 04/20/22 04/21/22 04/22/22 23:59 23:59 23:59 Intake Total 2831.25 / 2831.25 2148.75 / 2148.75 750 / 750 Output Total 400 / 650 1285 / 1285 700 / 700 Balance 2431.25 / 2181.25 863.75 / 863.75 50 / 50 Lab / Micro Data Result Diagrams: 04/22/22 04:45 04/22/22 04:45 Labs: Laboratory Results - last 24 hr 04/21/22 21:04: POC Glucose 256 H 04/22/22 04:45: WBC 8.3, RBC 3.46 L, Hgb 10.2 L, Hct 30.9 L, MCV 89.3, MCH 29.5, MCHC 33.0, RDW Std Deviation 43.8, RDW Coeff of Elmer 13.4, Plt Count 267, MPV 8.9, Immature Gran % (Auto) 0.700, Neut % (Auto) 77.8 H, Lymph % (Auto) 16.1 L, [place] % (Auto) 5.4, Eos % (Auto) 0.0, Baso % (Auto) 0.0, Absolute Neuts (auto) 6.4, Absolute Lymphs (auto) 1.33, Nucleated RBC % 0 04/22/22 04:45: Sodium 140, Potassium 4.6, Chloride 110 H, Carbon Dioxide 24.0, Anion Gap 6, BUN 36 H, Creatinine 1.25, Estim Creat Clear Calc 41.82, Est GFR (MDRD) Af Amer 71, Est GFR (MDRD) Non-Af 59 L, BUN/Creatinine Ratio 28.8 H, Glucose 170 H, Calcium 8.2 L, Total Bilirubin 0.40, AST 30, ALT 38, Alkaline Phosphatase 42 L, Total Protein 6.2 L, Albumin 2.1 L, Globulin 4.1, Albumin/Globulin Ratio 0.5 L 04/22/22 06:32: POC Glucose 135 H 04/22/22 11:35: POC Glucose 212 H 04/22/22 16:06: POC Glucose 171 H Micro: Microbiology 04/18/22 21:46 Urine, Clean Catch Legionella Antigen - Final 04/18/22 21:46 Urine, Clean Catch Streptococcus pneumoniae Antigen (M - Final 04/18/22 18:20 Interface Orders Rapid RSV (DFA) - Final 04/18/22 18:20 Nasal Secretion SARS-CoV-2 & FLU Antigen (Rapid) - Final Physical Exam Const alert and no apparent distress Constitutional Narrative: Oriented HEENT normocephalic and head/scalp atraumatic Eyes Eyes Narrative: EOM grossly intact, anicteric Neck supple Resp Resp Narrative: Slight increased work of breathing, coarse at the bases Cardio regular rate and regular rhythm GI soft to palpation, non-tender and non-distended Extremity Extremity Narrative: No edema appreciated Neuro moves all extremities Neuro Narrative: No overt focal deficits appreciated Psych Psych Narrative: Cooperative Assessment & Plan Assessment/Plan (1) COVID-19: PLAN: Plan #COVID-19 pneumonia On Decadron until 04/29, remdesivir until 04/23, baricitinib until 05/02 Pulm evaluated and now signed off Incentive spirometry 04/22: Was bumped up to 4 L earlier, given increased O2 requirement he was monitored for another day. If stable tomorrow will perform walk test and can tolerate less than 6 L on ambulation will discharge home with a total of 2 weeks of Decadron and will discontinue remdesivir and baricitinib at discharge. #Hypoxia secondary to COVID-19 pneumonia Nasal cannula Continue monitoring pulse ox Will need to assess for O2 needs prior to DC 04/22: See #1 #Hypertension Continue current medications #Type 2 diabetes mellitus Sliding scale insulin and glucose checks #Hyperlipidemia on atorvastatin #DVT ppx: Gary Becker MD Charges/Coding Visit Charges Inpatient E&M: 76691 Subs Hosp L2
[2022-04-22] MEDS: MELATONIN 3 MG TABLET PO (21:51)
[2022-04-22] MEDS: Atorvastatin Calcium 40 MG Tablet PO (21:52)
[2022-04-22] MEDS: Gabapentin 100 MG Capsule 200 MG PO (21:52)
[2022-04-22 22:15] LABS: Bedside Glucose 249 mg/dL (74-106)
[2022-04-23] VITALS (9 sets, daily range): BP systolic 142–172; BP diastolic 62–78; PULSE 57–78; RESP 16–18; TEMP 36.4–36.5; O2SAT 86–95
[2022-04-23] MEDS: hydrALAZINE 20 MG/ML Vial 5 MG IV (03:31)
[2022-04-23] MEDS: 0.9% Saline Lock 10 ML Syringe IV (03:32)
[2022-04-23 05:25] LABS: Absolute Lymphocyte Count 0.87 X10^3/uL (0.83-4.51); Absolute Neutrophil Count 5.9 X10^3/uL (2.0-7.7); Hematocrit 32.1 % (40-54); Hemoglobin 10.7 g/dL (13.0-16.5); Lymphocyte # 0.87 X10^3/ul (0.83-4.51); Lymphocyte % 12.4 % (19-41); Mean Corp Hgb Conc 33.3 g/dL (32-36); Mean Corpuscular Hgb 29.8 pg (27.0-32.0); Mean Corpuscular Volume 89.4 fL (80-94); Mean Platelet Vol. 9.3 fl (6.2-12.0); Monocyte# 0.28 X10^3/uL; NRBC Flagged by Analyzer 0 % (0-5); Neutrophil # 5.85 X10^3/uL (2.7-7.7); Neutrophil % 83.3 % (47-70); Platelet Count 252 K/mm3 (150-450); RBC Distribution Width CV 13.2 % (11.6-14.6); RBC Distribution Width SD 43.5 fl (35.1-43.9); Red Blood Count 3.59 M/mm3 (4.6-6.2)
[2022-04-23 05:37] LABS: Anion Gap 2 (5-15); BUN 40 mg/dL (7-18); BUN/Creat Ratio 33.1 RATIO (10-20); Calcium,Total 8.3 mg/dL (8.5-10.1); Chloride 107 mmol/L (98-107); Creatinine, Serum 1.21 mg/dL (0.70-1.30); EST Glomerular Filtration Rate 61 mL/min (>60); Est Glom Filt Rate - Afr Amer 74 mL/min (>60); Estimated Creatinine Clearance 43.21 ml/min; Glucose 192 mg/dL (74-106); Potassium 4.7 mmol/L (3.5-5.1); Sodium Level 136 mmol/L (136-145)
[2022-04-23] MEDS: Insulin Lispro 100 UNIT/ML INSULN.PEN SC ×2 (06:37→11:55)
[2022-04-23 07:02] LABS: Bedside Glucose 181 mg/dL (74-106)
--- NOTE | 2022-04-23 07:18 | NURSING ---
Documentation reviewed with Rui ZUNIGA.
[2022-04-23] MEDS: Cholecalciferol (VIT D3) 25 MCG TABLET (1,000 UNITS) 50 MCG PO (11:09)
[2022-04-23] MEDS: Famotidine 20 MG Tablet 40 MG PO (11:09)
[2022-04-23] MEDS: Isosorbide Mononitrate 60 MG Tablet PO (11:10)
[2022-04-23] MEDS: Losartan Potassium 25 MG Tablet PO (11:10)
[2022-04-23] MEDS: dexAMETHasone 4 MG Tablet 6 MG PO (11:10)
[2022-04-23] MEDS: Enoxaparin 100 MG/ML Syringe SC (11:10)
[2022-04-23] MEDS: Carvedilol 6.25 MG Tablet PO (11:10)
[2022-04-23 12:30] LABS: Bedside Glucose 342 mg/dL (74-106)
--- NOTE | 2022-04-23 13:32 | DCINST_ITS ---
Discharge Instructions Diet Discharge Diet: 2200 Calorie Control Diet Activity Discharge Activity: Return to Normal Activity (As tolerated) Follow Up Care Test Results: Test results from this visit will be discussed in further detail at your follow- up appointment, if applicable. Discharge Plan Admission Admit Date/Time: 04/18/22 20:43 Primary Reason for Your Visit: Worsening weakness Attending Provider: Amy Becker Primary Care Provider: Kain Bhakta Chi Consulting Providers: Yifan Diamond ; Markell Olson ; Hunter Levy ; Simba Bustos ; Milton Cordova ; Laverne Zurita NP ; Alen Rojas Instructions Patient Instructions: Coronavirus Disease 2019 (COVID-19): Overview, Coronavirus Disease 2019 (COVID-19): Prevention, Coronavirus Disease 2019 (COVID-19): Caring for Yourself or Others Additional Instructions / Restrictions: *Please take this with you to your next doctors appointment* ?You will need to continue to take Decadron for a total of 14 days. You will take 9 more days with your next dose 04/24. prescription is sent to your preferred pharmacy on file ? You will be sent home with home oxygen and set up with home health ? You may benefit from pulmonary function testing as an outpatient, please discuss this with your primary care physician once your respiratory status begins to improve ? Your blood glucose was low on arrival and you have required only sliding scale insulin during this admission. Highly advise you stop glimepiride and Tresiba at this time. It will be important for you to check your glucose as an outpatient as once you improve you may need to restart or adjust diabetic medications. Do not restart your Tresiba or glimepiride prior to discussing with your physician. An order for short acting sliding scale insulin sent to your preferred pharmacy on file. -Please check your glucose every morning and before meals. He will administer sliding scale insulin at these times as follows: If your blood glucose before meal is less than 150 you do not need additional insulin. If it is- 150-199 mg/dl = 2 units 200-259 mg/dl = 4 units 260-324 mg/dl = 6 units 325-374 mg/dl = 8 units 375-409 mg/dl = 10 units 410-449 mg/dl = 11 units Greater than 449 call your physician -Please call your primary care provider's office upon discharge to schedule a hospital follow up within 1 week. -For any concerning signs or symptoms please call 911 or proceed to the nearest emergency department Discharge Orders/Prescriptions Prescriptions: New dexamethasone 4 mg Tablet 6 mg PO DAILYCM 9 Days Qty: 14 0RF Rx Instructions: First dose 04/24 insulin lispro [Humalog KwikPen Insulin] 100 unit/mL Insulin Pen See Protocol subcut ACHS Qty: 15 0RF Protocol: 4. Sliding Scale Insulin High-Med Dosing Condition: 150-199 mg/dl = 2 units Condition: 200-259 mg/dl = 4 units Condition: 260-324 mg/dl = 6 units Condition: 325-374 mg/dl = 8 units Condition: 375-409 mg/dl = 10 units Condition: 410-449 mg/dl = 11 units Condition: Greater than 449 call physician Protocol Text: - Use for Total Daily Dose of Insulin 56-80 units - Patient who are insulin resistant or septic HIGH MEDIUM DOSING ALGORITHM pen needles, lancets, test strips diabetic See Rx Instructions .ROUTE .COMPLEX Qty: 100 0RF Rx Instructions: Brand per insurance preference. Check glucose in the morning and with meals, inject sliding scale insulin per protocol. Dispense 100EA for pen needles, lancets, and test strips Continued atorvastatin 80 MG tablet 40 mg PO QHS isosorbide mononitrate 60 MG tablet 60 mg PO DAILY losartan 25 MG tablet 25 mg PO DAILY famotidine 40 MG tablet 40 mg PO DAILY gabapentin 300 MG capsule 300 mg PO QHS cholecalciferol (vitamin D3) [Vitamin D3] 2,000 UNIT capsule 2,000 unit PO DAILY albuterol sulfate [Ventolin HFA] 1 INHALER inhaler 2 puff inhalation Q4H PRN PRN (Reason: SOB/wheeZing) Qty: 1 0RF carvedilol [Coreg] 6.25 MG tablet 6.25 mg PO DAILY Held insulin degludec [Tresiba FlexTouch U-100] 100 unit/mL (3 mL) insulin pen 40 unit SUBCUT DAILY Hold Instructions: Resume on 04/30/22. Label Comments: INJECT 40 UNITS SUBCUTANEOUSLY ONCE DAILY Discontinued glimepiride 4 MG tablet 4 mg PO DAILY Referrals / Follow Up: Kain Bhakta Chi, MD [Primary Care Provider] - Within 1 Week Disposition Disposition (needs filled in before D/C Order can be placed): Home Health Service
--- NOTE | 2022-04-23 13:35 | DS.PCM_ITS ---
Providers Date of Admission: 04/18/22 Date of Discharge: 04/23/22 Primary Care Physician: Dr. Kain Bhakta MD Consultations 04/19/22 13:16 Consult: Bull Gang Supervisor / Pulmonary Medicine Routine Consulting Provider: Pulmonary Medicine lucero [place] Reason for Consult: COVID-19 pneumonia EMERGENT Consult: No MD Notified: Yes Date Notified: 04/19/22 Time Notified: 13:16 Method of Notification: Verbal Reason For Visit: HYPOGLYCEMIA; HYPOXIA; KALYN Diagnosis Discharge Diagnosis (1) COVID-19: Status: Acute Code(s): U07.1 - COVID-19 Plan #COVID-19 pneumonia #Hypoxia secondary to COVID-19 pneumonia #Hypertension #Type 2 diabetes mellitus #Hyperlipidemia Medications at Discharge Home Medications atorvastatin 80 mg tablet 40 mg PO QHS CHOLESTEROL 01/31/15 isosorbide mononitrate 60 mg tablet,extended release 24 hr 60 mg PO DAILY BLOOD PRESSURE 01/31/15 losartan 25 mg tablet 25 mg PO DAILY BLOOD PRESSURE 01/31/15 cholecalciferol (vitamin D3) 50 mcg (2,000 unit) capsule (Vitamin D3) 2,000 unit PO DAILY SUPPLEMENT 07/13/18 famotidine 40 mg tablet 40 mg PO DAILY GERD 07/13/18 gabapentin 300 mg capsule 300 mg PO QHS NEUROPATHY 07/13/18 albuterol sulfate 90 mcg/actuation aerosol inhaler (Ventolin HFA) 2 puff inhalation Q4H PRN PRN SOB/wheeZing ##1 07/14/18 insulin degludec 100 unit/mL (3 mL) subcutaneous pen (Tresiba FlexTouch U-100 insulin) 40 unit subcut DAILY diabetes 02/22/22 carvedilol 6.25 mg tablet (Coreg) 6.25 mg PO DAILY blood pressure 04/18/22 dexamethasone 4 mg tablet 6 mg PO DAILYCM 9 days #14 tabs 04/23/22 insulin lispro 100 unit/mL subcutaneous pen (Humalog KwikPen (U-100) Insulin) See Protocol subcut ACHS #15 mL 04/23/22 pen needles, lancets, test strips diabetic See Rx Instructions .Route .COMPLEX #100 ea 04/23/22 Hospital Course Procedures - (VQ scan, lower extremity venous study, chest xray) Summary of Care Provided Minutes Spent on Discharge: 32 Hospital Course: JUNIOR MACIAS, is a 81 M with a significant history of hypertension and diabetes mellitus who presented to the emergency department 04/18/2022 with worsening weakness over 1 week. Also had cough. Was found to have COVID and noted to be hypoxic and required O2. Due to this he also was placed on Decadron, Versed and, remdesivir. Given an elevated D-dimer he was placed empirically on therapeutic dose Lovenox. He improved during admission and ambulated to assess for O2 needs prior to discharge. Given he had a normal VQ scan and normal lower extremity venous study he will not be discharged on therapeutic anticoagulation but will be discharged on Decadron for total of 2 weeks. He was hypoglycemic upon arrival and his fasting glucoses have primarily been low 100s after being taken off of his long-acting insulin and glimepiride despite being on steroids. We will hold home glimepiride and Tresiba due to concerns for hypoglycemia especially once Decadron is discontinued. Will need to follow glucose and start sliding scale insulin and follow closely with primary care physician. *Please take this with you to your next doctors appointment* ?You will need to continue to take Decadron for a total of 14 days. You will take 9 more days with your next dose 04/24. prescription is sent to your preferred pharmacy on file ? You will be sent home with home oxygen and set up with home health ? You may benefit from pulmonary function testing as an outpatient, please discuss this with your primary care physician once your respiratory status begins to improve ? Your blood glucose was low on arrival and you have required only sliding scale insulin during this admission. Highly advise you stop glimepiride and Tresiba at this time. It will be important for you to check your glucose as an outpatient as once you improve you may need to restart or adjust diabetic medications. Do not restart your Tresiba or glimepiride prior to discussing with your physician. An order for short acting sliding scale insulin sent to your preferred pharmacy on file. -Please check your glucose every morning and before meals. He will administer sliding scale insulin at these times as follows: If your blood glucose before meal is less than 150 you do not need additional insulin. If it is- 150-199 mg/dl = 2 units 200-259 mg/dl = 4 units 260-324 mg/dl = 6 units 325-374 mg/dl = 8 units 375-409 mg/dl = 10 units 410-449 mg/dl = 11 units Greater than 449 call your physician -Please call your primary care provider's office upon discharge to schedule a hospital follow up within 1 week. -For any concerning signs or symptoms please call 911 or proceed to the nearest emergency department EEG with moderate diffuse generalized slowing, nonfocal and nonspecific. May have neurodegenerative disorder or may have delirium secondary to acute hospitalization in light of multiple medical comorbidities. Would benefit from further evaluation in nonacute setting and could consider outpatient neuropsych testing. Physical Exam Const alert and no apparent distress Constitutional Narrative: Oriented HEENT normocephalic and head/scalp atraumatic Eyes Eyes Narrative: EOM grossly intact, anicteric Neck supple Resp Resp Narrative: No increased work of breathing, slight fine inspiratory crackles at the bases Cardio regular rate and regular rhythm GI soft to palpation, non-tender and non-distended Extremity Extremity Narrative: No edema appreciated Neuro moves all extremities Neuro Narrative: No overt focal deficits appreciated Psych Psych Narrative: Cooperative Weight / BMI Weight Weight: 96.3 kg Body Mass Index (BMI) 34.2 ABG / Lab / Microbiology Data Result Diagrams: 04/23/22 05:04 04/23/22 05:04 Laboratory: Laboratory Results - last 24 hr 04/22/22 16:06: POC Glucose 171 H 04/22/22 21:36: POC Glucose 249 H 04/23/22 05:04: WBC 7.0, RBC 3.59 L, Hgb 10.7 L, Hct 32.1 L, MCV 89.4, MCH 29.8, MCHC 33.3, RDW Std Deviation 43.5, RDW Coeff of Elmer 13.2, Plt Count 252, MPV 9.3, Immature Gran % (Auto) 0.300, Neut % (Auto) 83.3 H, Lymph % (Auto) 12.4 L, [place] % (Auto) 4.0, Eos % (Auto) 0.0, Baso % (Auto) 0.0, Absolute Neuts (auto) 5.9, Absolute Lymphs (auto) 0.87, Nucleated RBC % 0 04/23/22 05:04: Sodium 136, Potassium 4.7, Chloride 107, Carbon Dioxide 27.0, Anion Gap 2 L, BUN 40 H, Creatinine 1.21, Estim Creat Clear Calc 43.21, Est GFR (MDRD) Af Amer 74, Est GFR (MDRD) Non-Af 61, BUN/Creatinine Ratio 33.1 H, Glucose 192 H, Calcium 8.3 L 04/23/22 06:36: POC Glucose 181 H 04/23/22 11:53: POC Glucose 342 H Microbiology: Microbiology 04/18/22 21:46 Urine, Clean Catch Legionella Antigen - Final 04/18/22 21:46 Urine, Clean Catch Streptococcus pneumoniae Antigen (M - Final 04/18/22 18:20 Interface Orders Rapid RSV (DFA) - Final 04/18/22 18:20 Nasal Secretion SARS-CoV-2 & FLU Antigen (Rapid) - Final D/C Instructions Discharge Diet: 2200 Calorie Control Diet Meaningful Use Info Meaningful Use Diagnoses (Choose all that apply): None applicable Discharge Plan Admission Admit Date/Time: 04/18/22 20:43 Primary Reason for Your Visit: Worsening weakness Attending Provider: Amy Becker Primary Care Provider: Kain Bhakta Chi Consulting Providers: Yifan Diamond ; Markell Olson ; Hunter Levy ; Simba Bustos ; Milton Cordova ; Laverne Zurita NP ; Alen Rojas Instructions Patient Instructions: Coronavirus Disease 2019 (COVID-19): Overview, Coronavi edgar Disease 2019 (COVID-19): Prevention, Coronavirus Disease 2019 (COVID-19): Caring for Yourself or Others Additional Instructions / Restrictions: *Please take this with you to your next doctors appointment* ?You will need to continue to take Decadron for a total of 14 days. You will take 9 more days with your next dose 04/24. prescription is sent to your preferred pharmacy on file ? You will be sent home with home oxygen and set up with home health ? You may benefit from pulmonary function testing as an outpatient, please discuss this with your primary care physician once your respiratory status begins to improve ? Your blood glucose was low on arrival and you have required only sliding scale insulin during this admission. Highly advise you stop glimepiride and Tresiba at this time. It will be important for you to check your glucose as an outpatient as once you improve you may need to restart or adjust diabetic medications. Do not restart your Tresiba or glimepiride prior to discussing with your physician. An order for short acting sliding scale insulin sent to your preferred pharmacy on file. -Please check your glucose every morning and before meals. He will administer sliding scale insulin at these times as follows: If your blood glucose before meal is less than 150 you do not need additional insulin. If it is- 150-199 mg/dl = 2 units 200-259 mg/dl = 4 units 260-324 mg/dl = 6 units 325-374 mg/dl = 8 units 375-409 mg/dl = 10 units 410-449 mg/dl = 11 units Greater than 449 call your physician -Please call your primary care provider's office upon discharge to schedule a hospital follow up within 1 week. -For any concerning signs or symptoms please call 911 or proceed to the nearest emergency department Discharge Orders/Prescriptions Prescriptions: New dexamethasone 4 mg Tablet 6 mg PO DAILYCM 9 Days Qty: 14 0RF Rx Instructions: First dose 04/24 insulin lispro [Humalog KwikPen Insulin] 100 unit/mL Insulin Pen See Protocol subcut ACHS Qty: 15 0RF Protocol: 4. Sliding Scale Insulin High-Med Dosing Condition: 150-199 mg/dl = 2 units Condition: 200-259 mg/dl = 4 units Condition: 260-324 mg/dl = 6 units Condition: 325-374 mg/dl = 8 units Condition: 375-409 mg/dl = 10 units Condition: 410-449 mg/dl = 11 units Condition: Greater than 449 call physician Protocol Text: - Use for Total Daily Dose of Insulin 56-80 units - Patient who are insulin resistant or septic HIGH MEDIUM DOSING ALGORITHM pen needles, lancets, test strips diabetic See Rx Instructions .ROUTE .COMPLEX Qty: 100 0RF Rx Instructions: Brand per insurance preference. Check glucose in the morning and with meals, inject sliding scale insulin per protocol. Dispense 100EA for pen needles, lancets, and test strips Continued atorvastatin 80 MG tablet 40 mg PO QHS isosorbide mononitrate 60 MG tablet 60 mg PO DAILY losartan 25 MG tablet 25 mg PO DAILY famotidine 40 MG tablet 40 mg PO DAILY gabapentin 300 MG capsule 300 mg PO QHS cholecalciferol (vitamin D3) [Vitamin D3] 2,000 UNIT capsule 2,000 unit PO DAILY albuterol sulfate [Ventolin HFA] 1 INHALER inhaler 2 puff inhalation Q4H PRN PRN (Reason: SOB/wheeZing) Qty: 1 0RF carvedilol [Coreg] 6.25 MG tablet 6.25 mg PO DAILY Held insulin degludec [Tresiba FlexTouch U-100] 100 unit/mL (3 mL) insulin pen 40 unit SUBCUT DAILY Hold Instructions: Resume on 04/30/22. Label Comments: INJECT 40 UNITS SUBCUTANEOUSLY ONCE DAILY Discontinued glimepiride 4 MG tablet 4 mg PO DAILY Referrals / Follow Up: Kain Bhakta Chi, MD [Primary Care Provider] - Within 1 Week Disposition Disposition (needs filled in before D/C Order can be placed): Home Health Service Charges/Coding Visit Charges Inpatient E&M: 66657 Disch Hosp
--- NOTE | 2022-04-23 13:36 | CASEMGMT ---
Addendum entered by Trinity Gonzalez 04/23/22 14:22: Pt scheduled to see Dr. Bhakta 04/24/22 at 1520 as he needs to see pt prior to HHC. Suzan at [facility] updated and states can do SOC 04/25/22 as long as pt goes to PCP appt. Pt updated on all, voices understanding. Pt voices no further questions/concerns/needs and states ride on way, anxious to be discharged. Jordan ZUNIGA aware and into room. Barbara ZUNIGA CM Addendum entered by Trinity Gonzalez 04/23/22 13:46: Pt provided [facility] pulse ox for discharge. Barbara ZUNIGA CM Original Note: Pt qualifies for 3L home oxygen w/ exertion. Pt states no preference for DME company. Pt is agreeable to HHC at discharge and pt provided list of HHC providers including quality and resource use data and consistent with pt's geographical region, medicals needs, and insurance network. Pt states no preference for HHC company, just states 'as long as my insurance pays for it.' [place] [facility] [place] and [facility] for SN, PT/OT via [facility] and call to Suzan at [facility] with referral. Ramos at [facility] notified of home oxygen referral. This NADIA CM also placed order for [facility] CCN for pt after HHC done. CM to follow for HHC acceptance/SOC. Barbara ZUNIGA CM
== END 2022-04-23 15:08 | disposition home health service (06) | DRG 177 ==
LOC: ED 18:28 → PCU 21:05
PROVIDERS: Internal Medicine; Internal Medicine Critical Care Medicine; Admitting Provider Hospitalist; Emergency Provider Student in an Organized Health Care Education/Training Program; PCP Family Medicine Geriatric Medicine; Visit Provider Internal Medicine
DX: U07.1 COVID-19 (principal); J12.82 Pneumonia due to coronavirus disease 2019; J96.01 Acute respiratory failure with hypoxia; N17.9 Acute kidney failure, unspecified; J44.1 Chronic obstructive pulmonary disease with (acute) exacerbation; E11.649 Type 2 diabetes mellitus with hypoglycemia without coma; E11.22 Type 2 diabetes mellitus with diabetic chronic kidney disease; N18.31 Chronic kidney disease, stage 3a; E78.5 Hyperlipidemia, unspecified; I12.9 Hypertensive chronic kidney disease with stage 1 through stage 4 chronic kidney disease, or unspecified chronic kidney disease; Z79.52 Long term (current) use of systemic steroids; E66.9 Obesity, unspecified; Z87.891 Personal history of nicotine dependence; Z79.84 Long term (current) use of oral hypoglycemic drugs; Z60.2 Problems related to living alone; Z68.34 Body mass index [BMI] 34.0-34.9, adult
CPT/HCPCS: 36415; 71045; 78598; 80048; 80053; 81001; 82570; 82962; 83880; 83935; 84075; 84145; 84300; 84484; 85025; 85027; 85379; 86140; 87428; 87449; 87635; 87807; 93005; 93970; 97110; 97116; 97162; 97165; 97530; 97535; 99285; A9540; A9567; J7030; J7050; A4216; J0248; J1940; U0003; U0005

== ENCOUNTER → 2022-04-30 | Outpatient (CLI) | payer MEDICARE, SELFPAY ==
[2022-04-30 13:07] LABS: Absolute Neutrophil Count 9.1 X10^3/uL (2.0-7.7); Basophil# 0.01 X10^3/uL; Basophil% 0.1 % (0-1); Hematocrit 33.8 % (40-54); Lymphocyte % 5.1 % (19-41); Mean Corp Hgb Conc 32.5 g/dL (32-36); Mean Corpuscular Hgb 29.1 pg (27.0-32.0); Mean Corpuscular Volume 89.4 fL (80-94); Mean Platelet Vol. 10.9 fl (6.2-12.0); Monocyte# 0.17 X10^3/uL; Monocyte% 1.7 % (0-10); NRBC Flagged by Analyzer 0.2 % (0-5); Neutrophil # 9.12 X10^3/uL (2.7-7.7); Neutrophil % 92.4 % (47-70); POSITIVE DIFFERENTIAL YES; Platelet Count 198 K/mm3 (150-450); RBC Distribution Width CV 13.2 % (11.6-14.6); RBC Distribution Width SD 42.7 fl (35.1-43.9); Red Blood Count 3.78 M/mm3 (4.6-6.2); White Blood Count 9.9 K/mm3 (4.4-11.0)
[2022-04-30 13:18] LABS: Differential Indicated SCAN CRITERIA MET
[2022-04-30 13:22] LABS: Vitamin D,25 Hydroxy 88.5 ng/mL
[2022-04-30 13:36] LABS: Differential Comment SCANNED
[2022-04-30 13:41] LABS: ALB/GLOB Ratio 0.6 RATIO (0.9-2.4); AST(SGOT) 20 U/L (15-37); Alanine Aminotransfer ALT/SGPT 33 U/L (16-61); Albumin, Serum 2.8 g/dL (3.2-5.0); Alkaline Phosphatase 68 U/L (45-117); Anion Gap 11 (5-15); BUN 24 mg/dL (7-18); BUN/Creat Ratio 16.4 RATIO (10-20); Calcium,Total 8.6 mg/dL (8.5-10.1); Chloride 100 mmol/L (98-107); Creatinine, Serum 1.46 mg/dL (0.70-1.30); EST Glomerular Filtration Rate 49 mL/min (>60); Est Glom Filt Rate - Afr Amer 60 mL/min (>60); Globulin 4.4 g/dL (2.2-4.2); Glucose 346 mg/dL (74-106); Potassium 4.4 mmol/L (3.5-5.1); Protein, Total 7.2 g/dL (6.4-8.2); Sodium Level 132 mmol/L (136-145); Thyroid Stim Hormone (TSH) 0.91 uIU/mL (0.358-3.74)
== END | disposition home or self-care (01) ==
LOC: POLAB3 10:53
PROVIDERS: PCP Family Medicine Geriatric Medicine; Visit Provider Family Medicine Geriatric Medicine
DX: E55.9 Vitamin D deficiency, unspecified (principal); E11.65 Type 2 diabetes mellitus with hyperglycemia; I10 Essential (primary) hypertension
CPT/HCPCS: 36415; 80053; 82306; 84443; 85025

== ENCOUNTER → 2022-05-22 | Outpatient (CLI) | payer MEDICARE, SELFPAY ==
[2022-05-22 17:01] LABS: Absolute Lymphocyte Count 1.33 X10^3/uL (0.83-4.51); Absolute Neutrophil Count 3.4 X10^3/uL (2.0-7.7); Basophil# 0.02 X10^3/uL; Basophil% 0.4 % (0-1); Eosinophil# 0.16 X10^3/uL; Hematocrit 29.1 % (40-54); Hemoglobin 9.2 g/dL (13.0-16.5); Lymphocyte # 1.33 X10^3/ul (0.83-4.51); Lymphocyte % 24.5 % (19-41); Mean Corp Hgb Conc 31.6 g/dL (32-36); Mean Corpuscular Hgb 29.4 pg (27.0-32.0); Monocyte# 0.48 X10^3/uL; Monocyte% 8.9 % (0-10); NRBC Flagged by Analyzer 0 % (0-5); Neutrophil # 3.39 X10^3/uL (2.7-7.7); Neutrophil % 62.5 % (47-70); Platelet Count 170 K/mm3 (150-450); RBC Distribution Width SD 50.6 fl (35.1-43.9); Red Blood Count 3.13 M/mm3 (4.6-6.2); White Blood Count 5.4 K/mm3 (4.4-11.0)
[2022-05-22 17:17] LABS: Anion Gap 5 (5-15); BUN 36 mg/dL (7-18); BUN/Creat Ratio 21.1 RATIO (10-20); Calcium,Total 8.5 mg/dL (8.5-10.1); Chloride 107 mmol/L (98-107); Creatinine, Serum 1.71 mg/dL (0.70-1.30); EST Glomerular Filtration Rate 41 mL/min (>60); Est Glom Filt Rate - Afr Amer 50 mL/min (>60); Glucose 222 mg/dL (74-106); Potassium 4.4 mmol/L (3.5-5.1); Sodium Level 139 mmol/L (136-145)
[2022-05-22 17:25] LABS: BNP,B-Type NATRIURETIC PEPTIDE 41.2 pg/mL (0-100)
== END | disposition home or self-care (01) ==
LOC: POLAB3 15:12
PROVIDERS: PCP Family Medicine Geriatric Medicine; Visit Provider Family Medicine Geriatric Medicine
DX: R60.0 Localized edema (principal)
CPT/HCPCS: 36415; 80048; 83880; 85025

== ENCOUNTER → 2022-05-26 | Outpatient (CLI) | payer MEDICARE, SELFPAY ==
[2022-05-26 18:10] LABS: Anion Gap 6 (5-15); BUN 20 mg/dL (7-18); BUN/Creat Ratio 14.8 RATIO (10-20); Calcium,Total 8.7 mg/dL (8.5-10.1); Chloride 107 mmol/L (98-107); Creatinine, Serum 1.35 mg/dL (0.70-1.30); EST Glomerular Filtration Rate 54 mL/min (>60); Est Glom Filt Rate - Afr Amer 65 mL/min (>60); Glucose 184 mg/dL (74-106); Potassium 3.8 mmol/L (3.5-5.1); Sodium Level 140 mmol/L (136-145)
== END | disposition home or self-care (01) ==
LOC: POLAB3 17:12
PROVIDERS: PCP Family Medicine Geriatric Medicine; Visit Provider Family Medicine Geriatric Medicine
DX: M18.31 Unilateral post-traumatic osteoarthritis of first carpometacarpal joint, right hand (principal)
CPT/HCPCS: 36415; 80048

== ENCOUNTER → 2022-06-02 | Outpatient (CLI) | payer MEDICARE, SELFPAY ==
[2022-06-02 18:47] LABS: Anion Gap 11 (5-15); BUN 32 mg/dL (7-18); BUN/Creat Ratio 12.1 RATIO (10-20); Calcium,Total 8.8 mg/dL (8.5-10.1); Chloride 100 mmol/L (98-107); Creatinine, Serum 2.65 mg/dL (0.70-1.30); EST Glomerular Filtration Rate 25 mL/min (>60); Est Glom Filt Rate - Afr Amer 30 mL/min (>60); Glucose 124 mg/dL (74-106); Potassium 3.7 mmol/L (3.5-5.1); Sodium Level 139 mmol/L (136-145)
== END | disposition home or self-care (01) ==
LOC: POLAB3 14:25
PROVIDERS: PCP Family Medicine Geriatric Medicine; Visit Provider Family Medicine Geriatric Medicine
DX: N18.31 Chronic kidney disease, stage 3a (principal)
CPT/HCPCS: 36415; 80048

== ENCOUNTER → 2022-06-06 | Outpatient (CLI) | payer MEDICARE, SELFPAY ==
[2022-06-06 13:22] LABS: Anion Gap 7 (5-15); BUN 31 mg/dL (7-18); BUN/Creat Ratio 17.1 RATIO (10-20); Calcium,Total 9.1 mg/dL (8.5-10.1); Chloride 102 mmol/L (98-107); Creatinine, Serum 1.81 mg/dL (0.70-1.30); EST Glomerular Filtration Rate 38 mL/min (>60); Est Glom Filt Rate - Afr Amer 46 mL/min (>60); Glucose 149 mg/dL (74-106); Potassium 3.9 mmol/L (3.5-5.1); Sodium Level 139 mmol/L (136-145)
== END | disposition home or self-care (01) ==
LOC: POLAB3 11:05
PROVIDERS: PCP Family Medicine Geriatric Medicine; Visit Provider Family Medicine Geriatric Medicine
DX: N17.9 Acute kidney failure, unspecified (principal)
CPT/HCPCS: 36415; 80048

== ENCOUNTER → 2022-06-13 | Outpatient (CLI) | payer MEDICARE, SELFPAY ==
[2022-06-13 13:46] LABS: Anion Gap 7 (5-15); BUN 27 mg/dL (7-18); BUN/Creat Ratio 16.2 RATIO (10-20); Calcium,Total 8.5 mg/dL (8.5-10.1); Chloride 106 mmol/L (98-107); Creatinine, Serum 1.67 mg/dL (0.70-1.30); EST Glomerular Filtration Rate 42 mL/min (>60); Est Glom Filt Rate - Afr Amer 51 mL/min (>60); Glucose 221 mg/dL (74-106); Potassium 3.8 mmol/L (3.5-5.1); Sodium Level 142 mmol/L (136-145)
== END | disposition home or self-care (01) ==
LOC: POLAB3 11:18
PROVIDERS: PCP Family Medicine Geriatric Medicine; Visit Provider Family Medicine Geriatric Medicine
DX: N17.9 Acute kidney failure, unspecified (principal)
CPT/HCPCS: 36415; 80048

== ENCOUNTER → 2022-06-20 | Outpatient (CLI) | payer MEDICARE, SELFPAY ==
[2022-06-20 10:39] LABS: Anion Gap 8 (5-15); BUN 18 mg/dL (7-18); BUN/Creat Ratio 13.6 RATIO (10-20); Calcium,Total 9.2 mg/dL (8.5-10.1); Chloride 106 mmol/L (98-107); Creatinine, Serum 1.32 mg/dL (0.70-1.30); EST Glomerular Filtration Rate 55 mL/min (>60); Est Glom Filt Rate - Afr Amer 67 mL/min (>60); Glucose 207 mg/dL (74-106); Potassium 4.4 mmol/L (3.5-5.1); Sodium Level 141 mmol/L (136-145)
== END | disposition home or self-care (01) ==
LOC: LAB 09:31
PROVIDERS: PCP Family Medicine Geriatric Medicine; Referring Provider Family Medicine Geriatric Medicine; Visit Provider Family Medicine Geriatric Medicine
DX: N17.9 Acute kidney failure, unspecified (principal)
CPT/HCPCS: 36415; 80048

== ENCOUNTER → 2022-07-10 | Outpatient (CLI) | payer MEDICARE, SELFPAY ==
--- NOTE | 2022-07-10 13:01 | US_ITS ---
STUDY: RENAL ULTRASOUND - COMPLETE REASON FOR EXAM: Male, 81 years old. CKD TECHNIQUE: Ultrasound evaluation of the kidneys was performed with real-time and static vivas-scale imaging. COMPARISON: None. FINDINGS: RIGHT KIDNEY: Normal location of the right kidney, which is normal in size. The right kidney measures 11.5 cm x 5.1 cm x 5.7 cm. There is a normal cortex of the right kidney. The renal cortex measures 2.2 cm. There is no right renal mass or cyst. There are no right renal calculi. There is no right hydronephrosis. DISTAL RIGHT URETER: There is non-visualization of the distal right ureter. There is no demonstrated right ureterovesical junction calculus. There is no demonstrated right ureteral jet. LEFT KIDNEY: Normal location of the left kidney, which is normal in size. The left kidney measures 11.1 cm x 5 cm x 5 cm. There is a normal cortex of the left kidney. The renal cortex measures 1.6 cm. There is a 2.3 cm x 1.7 cm x 1.9 cm cyst in the inferior pole of the kidney. There are no left renal calculi. There is no left hydronephrosis. DISTAL LEFT URETER: There is non-visualization of the distal left ureter. There is no demonstrated left ureterovesical junction calculus. There is no demonstrated left ureteral jet. BLADDER: The distended urinary bladder has a volume of 363 ml. There is a normal wall thickness of the distended urinary bladder. There is no demonstrated mass within the urinary bladder. There are no demonstrated bladder calculi. US/Kidney and Bladder IMPRESSION: Normal ultrasound of the kidneys and urinary bladder. Electronically Signed: Berlin Webb MD at 14:29 EST ,
== END | disposition home or self-care (01) ==
LOC: US 13:00
PROVIDERS: PCP Family Medicine Geriatric Medicine; Referring Provider Internal Medicine Nephrology; Visit Provider Internal Medicine Nephrology
DX: N18.31 Chronic kidney disease, stage 3a (principal)
CPT/HCPCS: 76770

== ENCOUNTER → 2022-08-06 | Outpatient (CLI) | payer MEDICARE, SELFPAY ==
[2022-08-06 14:53] LABS: Absolute Lymphocyte Count 1.98 X10^3/uL (0.83-4.51); Absolute Neutrophil Count 5.6 X10^3/uL (2.0-7.7); Basophil# 0.04 X10^3/uL; Basophil% 0.5 % (0-1); Eosinophil# 0.29 X10^3/uL; Eosinophils% 3.4 % (0-5); Hematocrit 33.8 % (40-54); Hemoglobin 11.3 g/dL (13.0-16.5); Lymphocyte # 1.98 X10^3/ul (0.83-4.51); Lymphocyte % 22.9 % (19-41); Mean Corp Hgb Conc 33.4 g/dL (32-36); Mean Corpuscular Hgb 30.3 pg (27.0-32.0); Mean Corpuscular Volume 90.6 fL (80-94); Mean Platelet Vol. 10.8 fl (6.2-12.0); Monocyte# 0.66 X10^3/uL; Monocyte% 7.6 % (0-10); NRBC Flagged by Analyzer 0 % (0-5); Neutrophil # 5.63 X10^3/uL (2.7-7.7); Neutrophil % 65.3 % (47-70); Platelet Count 177 K/mm3 (150-450); RBC Distribution Width SD 42.5 fl (35.1-43.9); Red Blood Count 3.73 M/mm3 (4.6-6.2); White Blood Count 8.6 K/mm3 (4.4-11.0)
--- NOTE | 2022-08-06 15:02 | RAD_ITS ---
STUDY: X-RAY - LUMBAR SPINE REASON FOR EXAM: Male, 81 years old. LOW BACK PAIN TECHNIQUE: 5 view(s) of the lumbar spine were obtained. COMPARISON: Comparison is made with prior study dated September 12, 2019. FINDINGS: Normal lumbar lordosis. There is no substantial scoliosis. There is a normal alignment of the vertebrae. There is multilevel endplate spondylosis of the lumbar vertebrae. There is multi-level degenerative disc disease with multi-level disc space narrowing. Facet joint osteoarthritis. Findings suggestive of spinal stenosis. There is atherosclerotic calcification of the abdominal aorta without a demonstrated aneurysm. RAD/L/S Spine Min 4 Views IMPRESSION: Degenerative changes of the spine, as detailed above. Electronically Signed: Berlin Webb MD at 15:37 EDT ,
[2022-08-06 15:12] LABS: Vitamin D,25 Hydroxy 98.5 ng/mL
[2022-08-06 15:19] LABS: Microalbumin,Random Urine < 5.0 mg/L (NO RANGE EST.)
[2022-08-06 15:20] LABS: ALB/GLOB Ratio 0.9 RATIO (0.9-2.4); AST(SGOT) 21 U/L (15-37); Alanine Aminotransfer ALT/SGPT 19 U/L (16-61); Albumin, Serum 3.7 g/dL (3.2-5.0); Alkaline Phosphatase 73 U/L (45-117); Anion Gap 7 (5-15); BUN 51 mg/dL (7-18); BUN/Creat Ratio 28.5 RATIO (10-20); Calcium,Total 9.4 mg/dL (8.5-10.1); Chloride 103 mmol/L (98-107); Creatinine, Serum 1.79 mg/dL (0.70-1.30); EST Glomerular Filtration Rate 39 mL/min (>60); Est Glom Filt Rate - Afr Amer 47 mL/min (>60); Globulin 4.3 g/dL (2.2-4.2); Glucose 162 mg/dL (74-106); Potassium 4.4 mmol/L (3.5-5.1); Sodium Level 137 mmol/L (136-145); Thyroid Stim Hormone (TSH) 3.59 uIU/mL (0.358-3.74)
== END | disposition home or self-care (01) ==
PROVIDERS: Internal Medicine Nephrology; PCP Family Medicine Geriatric Medicine; Visit Provider Family Medicine Geriatric Medicine
DX: M54.50 Low back pain, unspecified (principal); E11.65 Type 2 diabetes mellitus with hyperglycemia; E11.22 Type 2 diabetes mellitus with diabetic chronic kidney disease; N18.31 Chronic kidney disease, stage 3a; E55.9 Vitamin D deficiency, unspecified; I12.9 Hypertensive chronic kidney disease with stage 1 through stage 4 chronic kidney disease, or unspecified chronic kidney disease
CPT/HCPCS: 36415; 72110; 80053; 82043; 82306; 82570; 84443; 85025

== ENCOUNTER → 2022-09-22 | Outpatient (CLI) | payer MEDICARE, SELFPAY ==
[2022-09-22 18:02] LABS: Hematocrit 32.9 % (40-54); Hemoglobin 10.8 g/dL (13.0-16.5); Mean Corp Hgb Conc 32.8 g/dL (32-36); Mean Corpuscular Hgb 29.7 pg (27.0-32.0); Mean Corpuscular Volume 90.4 fL (80-94); Mean Platelet Vol. 10.3 fl (6.2-12.0); Platelet Count 166 K/mm3 (150-450); RBC Distribution Width CV 12.7 % (11.6-14.6); RBC Distribution Width SD 41.7 fl (35.1-43.9); Red Blood Count 3.64 M/mm3 (4.6-6.2)
[2022-09-22 18:55] LABS: Albumin, Serum 3.6 g/dL (3.2-5.0); BUN 38 mg/dL (7-18); BUN/Creat Ratio 24.4 RATIO (10-20); Chloride 107 mmol/L (98-107); Creatinine, Serum 1.56 mg/dL (0.70-1.30); EST Glomerular Filtration Rate 46 mL/min (>60); Est Glom Filt Rate - Afr Amer 55 mL/min (>60); Glucose 166 mg/dL (74-106); Phosphorus 3.4 mg/dL (2.5-4.9); Potassium 4.1 mmol/L (3.5-5.1); Sodium Level 142 mmol/L (136-145)
[2022-09-22 20:42] LABS: M R Staph aureus DNA By PCR Negative (Negative); Probe Check PASS; Specimen Processing Control PASS; Staph aureus DNA By PCR NEGATIVE (Negative)
[2022-09-23 08:12] LABS: PTHIN 77.6 pg/mL (18.4-80.1)
== END | disposition home or self-care (01) ==
LOC: POLAB3 16:33
PROVIDERS: PCP Family Medicine Geriatric Medicine; Visit Provider Internal Medicine Nephrology
DX: L03.116 Cellulitis of left lower limb (principal); N18.31 Chronic kidney disease, stage 3a
CPT/HCPCS: 36415; 80069; 83970; 85027; 87070; 87205; 87640

== ENCOUNTER → 2023-02-18 | Outpatient (CLI) | payer MEDICARE, SELFPAY ==
[2023-02-18 15:22] LABS: Absolute Neutrophil Count 4.1 X10^3/uL (2.0-7.7); Basophil# 0.02 X10^3/uL; Basophil% 0.3 % (0-1); Eosinophil# 0.14 X10^3/uL; Eosinophils% 2.2 % (0-5); Hematocrit 31.1 % (40-54); Lymphocyte % 26.6 % (19-41); Mean Corp Hgb Conc 32.2 g/dL (32-36); Mean Corpuscular Hgb 29.8 pg (27.0-32.0); Mean Corpuscular Volume 92.6 fL (80-94); Mean Platelet Vol. 10.7 fl (6.2-12.0); Monocyte# 0.44 X10^3/uL; Monocyte% 6.9 % (0-10); NRBC Flagged by Analyzer 0 % (0-5); Neutrophil # 4.08 X10^3/uL (2.7-7.7); Neutrophil % 63.7 % (47-70); Platelet Count 152 K/mm3 (150-450); RBC Distribution Width SD 44.1 fl (35.1-43.9); Red Blood Count 3.36 M/mm3 (4.6-6.2); White Blood Count 6.4 K/mm3 (4.4-11.0)
[2023-02-18 15:43] LABS: Vitamin D,25 Hydroxy 103.7 ng/mL
[2023-02-18 16:08] LABS: ALB/GLOB Ratio 0.9 RATIO (0.9-2.4); AST(SGOT) 17 U/L (15-37); Alanine Aminotransfer ALT/SGPT 19 U/L (16-61); Albumin, Serum 3.4 g/dL (3.2-5.0); Alkaline Phosphatase 78 U/L (45-117); Anion Gap 6 (5-15); BUN 51 mg/dL (7-18); BUN/Creat Ratio 23.5 RATIO (10-20); Calcium,Total 8.4 mg/dL (8.5-10.1); Chloride 104 mmol/L (98-107); Creatinine, Serum 2.17 mg/dL (0.70-1.30); EST Glomerular Filtration Rate 31 mL/min (>60); Est Glom Filt Rate - Afr Amer 38 mL/min (>60); Globulin 3.8 g/dL (2.2-4.2); Glucose 241 mg/dL (74-106); Potassium 3.9 mmol/L (3.5-5.1); Protein, Total 7.2 g/dL (6.4-8.2); Sodium Level 139 mmol/L (136-145); Thyroid Stim Hormone (TSH) 2.04 uIU/mL (0.358-3.74)
== END | disposition home or self-care (01) ==
LOC: POLAB3 14:22
PROVIDERS: PCP Family Medicine Geriatric Medicine; Visit Provider Family Medicine Geriatric Medicine
DX: E11.65 Type 2 diabetes mellitus with hyperglycemia (principal); I10 Essential (primary) hypertension; E55.9 Vitamin D deficiency, unspecified
CPT/HCPCS: 36415; 80053; 82306; 84443; 85025

== ENCOUNTER → 2023-05-20 | Outpatient (CLI) | payer MEDICARE, SELFPAY ==
[2023-05-20 15:18] LABS: Absolute Lymphocyte Count 1.87 X10^3/uL (0.83-4.51); Absolute Neutrophil Count 4.7 X10^3/uL (2.0-7.7); Basophil# 0.04 X10^3/uL; Basophil% 0.5 % (0-1); Eosinophil# 0.24 X10^3/uL; Eosinophils% 3.2 % (0-5); Hematocrit 29.8 % (40-54); Hemoglobin 9.8 g/dL (13.0-16.5); Lymphocyte # 1.87 X10^3/ul (0.83-4.51); Mean Corp Hgb Conc 32.9 g/dL (32-36); Mean Corpuscular Hgb 30.6 pg (27.0-32.0); Mean Corpuscular Volume 93.1 fL (80-94); Mean Platelet Vol. 10.4 fl (6.2-12.0); Monocyte# 0.62 X10^3/uL; Monocyte% 8.3 % (0-10); NRBC Flagged by Analyzer 0 % (0-5); Neutrophil # 4.69 X10^3/uL (2.7-7.7); Neutrophil % 62.7 % (47-70); Platelet Count 169 K/mm3 (150-450); RBC Distribution Width CV 13.2 % (11.6-14.6); RBC Distribution Width SD 44.8 fl (35.1-43.9); White Blood Count 7.5 K/mm3 (4.4-11.0)
[2023-05-20 15:34] LABS: ALB/GLOB Ratio 0.8 RATIO (0.9-2.4); AST(SGOT) 19 U/L (15-37); Alanine Aminotransfer ALT/SGPT 19 U/L (16-61); Albumin, Serum 3.4 g/dL (3.2-5.0); Alkaline Phosphatase 80 U/L (45-117); Anion Gap 4 (5-15); BUN 64 mg/dL (7-18); BUN/Creat Ratio 30.9 RATIO (10-20); Calcium,Total 8.9 mg/dL (8.5-10.1); Chloride 103 mmol/L (98-107); Creatinine, Serum 2.07 mg/dL (0.70-1.30); EST Glomerular Filtration Rate 33 mL/min (>60); Est Glom Filt Rate - Afr Amer 40 mL/min (>60); Globulin 4.1 g/dL (2.2-4.2); Glucose 128 mg/dL (74-106); Potassium 4.4 mmol/L (3.5-5.1); Protein, Total 7.5 g/dL (6.4-8.2); Sodium Level 138 mmol/L (136-145); Thyroid Stim Hormone (TSH) 3.45 uIU/mL (0.358-3.74)
[2023-05-20 16:22] LABS: Vitamin D,25 Hydroxy 85.7 ng/mL
== END | disposition home or self-care (01) ==
LOC: POLAB3 14:11
PROVIDERS: PCP Family Medicine Geriatric Medicine; Visit Provider Family Medicine Geriatric Medicine
DX: E11.65 Type 2 diabetes mellitus with hyperglycemia (principal); I10 Essential (primary) hypertension; E55.9 Vitamin D deficiency, unspecified
CPT/HCPCS: 36415; 80053; 82306; 84443; 85025

== ENCOUNTER → 2023-06-16 | Outpatient (CLI) | payer MEDICARE, SELFPAY ==
--- OUTSIDE RECORDS SUMMARY | 2023-06-16 11:57 | XMS RPT_ITS | CCD ---
Author Name Unknown Address [address] [place] [address] Organization [facility] Results Test Name Value Interpretation Reference Range Facil ity Summary Purpose Family History No Family History Records Found Advance Directives No Advanced Directives Records Found Additional Source Comments (unrecognized sect ion and content) No Status Records Found INFORMATION SOURCE (unrecogn ized section and content) FOR RECORDS PERTAINING TO PATIENTS WHO ARE OR HAVE BEEN ENROLLED IN A CHEMICAL DEPENDENCY/SUBSTANCEABUSE PROGRAM, SOME INFORMATION MAY BE OMITTED. This clinical summary was aggregated from multiple sources. Caution should be exercised in using it in the provision of clinical care. This summary normalizes information from multiple sources, and as a consequence, information in this document may materially change the coding, format and clinical context of patient data. In addition, data may be omitted in some cases. CLINICAL DECISIONS SHOULD BE BASED ON THE PRIMARY CLINICAL RECORDS. [employer] provides no warranty or guarantee of the accuracy or completeness of information in this document.
--- NOTE | 2023-06-17 05:53 | PFTCOMP ---
COMPLETE PULMONARY FUNCTION TEST INTERPRETATION Brief HPI: Patient is an 82-year-old male, currently under the care of Dr. Levy, who presents to [facility] for complete pulmonary function tests secondary to diagnosis of chronic respiratory failure. Respiratory therapist reports good effort and reproducible results. Interpretation: Forced expiration spirometry shows a mild large airways obstructive ventilatory defect with an FEV1 of 73% predicted. There is no significant bronchodilator response by strict ATS criteria. Spirograms are of good quality and plateau slowly, indicating slowly emptying areas of the lungs. The respiratory flow volume loop shows decreased expiratory flow rates at all lung volumes consistent with airway obstruction. Lung volumes by body plethysmography show a slightly reduced total lung capacity at 4.61 L, 75% predicted. All other lung volumes are within normal limits. Diffusion capacity by carbon monoxide is disproportionately reduced at 36% predicted. The airway resistance is elevated. No previous pulmonary function tests were available for review. Impression: Irreversible mild mixed ventilatory defect with a disproportionate reduction diffusion capacity
== END | disposition home or self-care (01) ==
PROVIDERS: PCP Family Medicine Geriatric Medicine; Referring Provider Internal Medicine Critical Care Medicine; Visit Provider Internal Medicine Critical Care Medicine
DX: J96.11 Chronic respiratory failure with hypoxia (principal)
CPT/HCPCS: 94060; 94726; 94729

== ENCOUNTER → 2023-06-18 | Outpatient (CLI) | payer MEDICARE, SELFPAY ==
[2023-06-18 13:45] VITALS: PULSE 101; PULSE 103; PULSE 75; PULSE 90; PULSE 93; PULSE 95; PULSE 96; O2SAT 4; O2SAT 84; O2SAT 88; O2SAT 89; O2SAT 90
--- NOTE | 2023-06-18 14:08 | CPS ---
Pt started walk on room air. At 1 minute pt was placed on 1 lpm. Pt was increased to 2 lpm at 2 minutes and 3 lpm at 3 minutes. At minute 5 pt needed to go to 4 lpm. Pt finished walk on 4lpm.
--- OUTSIDE RECORDS SUMMARY | 2023-06-18 16:01 | XMS RPT_ITS | CCD ---
Author Name Unknown Address [address] [place] [address] Organization [facility] Results Test Name Value Interpretation [...] BE BASED ON THE PRIMARY CLINICAL RECORDS. [employer] provides no warranty or guarantee of the accuracy or completeness of information in this document.
--- NOTE | 2023-06-19 05:41 | PCM.PSN.6M ---
PSN 6 Minute Walk Test 6 Minute Walk Test 6 Minute Walk Test: 6 Minute Walk Test PSN:6-Minute Walk Test Start: 06/18/23 14:02 Freq: Status: Active Protocol: RESP.6MINW Document 06/18/23 13:45 AEH (Rec: 06/18/23 14:11 AE Desktop) 6 Minute Walk Test Date Performed 06/18/23 Time Performed 13:45 Height 5 ft 5 in Weight: 96.615 kg Weight in Pounds 213.[address]: Dr Levy Assistive device used: Cane Pre-test Oxygen Delivery Method Room Air Pulse Ox 90 Pulse Rate (60-100) 75 Dyspnea Elidia Scale (0-10) 0 Exertion Elidia Scale (6-20) 6 1st minute Oxygen Delivery Method Room Air Pulse Ox 84 Pulse Rate (60-100) 93 Dyspnea Elidia Scale (0-10) 0 2nd minute Oxygen Flow Rate (L/min) 2 Oxygen Delivery Method Nasal Cannula Pulse Ox 88 Pulse Rate (60-100) 96 3rd minute Oxygen Flow Rate (L/min) 3 Oxygen Delivery Method Nasal Cannula Pulse Rate (60-100) 90 Dyspnea Elidia Scale (0-10) 101 4th minute Oxygen Flow Rate (L/min) 3 Oxygen Delivery Method Nasal Cannula Pulse Ox 89 Pulse Rate (60-100) 101 H Dyspnea Elidia Scale (0-10) 3 Number of Rests Taken 1 Reported Symptoms Increased Work of Breathing 5th minute Oxygen Flow Rate (L/min) 3 Oxygen Delivery Method Nasal Cannula Pulse Ox 88 Pulse Rate (60-100) 103 H Dyspnea Elidia Scale (0-10) 3 Reported Symptoms Increased Work of Breathing 6th minute Oxygen Flow Rate (L/min) 4 Oxygen Delivery Method Nasal Cannula Pulse Ox 90 Pulse Rate (60-100) 96 Post-test Oxygen Delivery Method Nasal Cannula Pulse Ox 4 Pulse Rate (60-100) 95 Dyspnea Elidia Scale (0-10) 82 Full Laps Walked 8 Partial Lap, Number of Tiles Walked 0 Total Distance Walked (ft) 472 06/18/23 14:08 Cardiopulmonary Services by Karolina Cummings Pt started walk on room air. At 1 minute pt was placed on 1 lpm. Pt was increased to 2 lpm at 2 minutes and 3 lpm at 3 minutes. At minute 5 pt needed to go to 4 lpm. Pt finished walk on 4lpm. Initialized on 06/18/23 14:08 - END OF NOTE Interpretation Interpretation: The patient was noted to be 90% on room air, but did desaturate quickly to 84% with ambulation. Patient ultimately required 4 L/min to maintain saturations during testing. In total, the patient traveled only 472 feet over the course of 6 minutes with the assistance of a cane and 2 breaks. These findings are consistent with a respiratory limitation exercise tolerance. Recommendations Recommendations: Patient requires no supplemental oxygen at rest, but should be using 4 L/min with any exertion
== END | disposition home or self-care (01) ==
LOC: PSN 13:23
PROVIDERS: PCP Family Medicine Geriatric Medicine; Visit Provider Internal Medicine Critical Care Medicine
DX: J96.11 Chronic respiratory failure with hypoxia (principal)
CPT/HCPCS: 94618

== ENCOUNTER → 2023-08-12 | Outpatient (CLI) | payer MEDICARE, SELFPAY ==
[2023-08-12 14:20] LABS: Absolute Lymphocyte Count 1.74 X10^3/uL (0.83-4.51); Absolute Neutrophil Count 4.6 X10^3/uL (2.0-7.7); Basophil# 0.04 X10^3/uL; Basophil% 0.6 % (0-1); Eosinophil# 0.19 X10^3/uL; Eosinophils% 2.7 % (0-5); Hematocrit 28.4 % (40-54); Hemoglobin 9.2 g/dL (13.0-16.5); Lymphocyte # 1.74 X10^3/ul (0.83-4.51); Lymphocyte % 24.7 % (19-41); Mean Corp Hgb Conc 32.4 g/dL (32-36); Mean Corpuscular Volume 92.5 fL (80-94); Mean Platelet Vol. 10.6 fl (6.2-12.0); Monocyte# 0.51 X10^3/uL; Monocyte% 7.2 % (0-10); NRBC Flagged by Analyzer 0 % (0-5); Neutrophil # 4.55 X10^3/uL (2.7-7.7); Neutrophil % 64.5 % (47-70); Platelet Count 149 K/mm3 (150-450); RBC Distribution Width CV 13.1 % (11.6-14.6); RBC Distribution Width SD 44.2 fl (35.1-43.9); Red Blood Count 3.07 M/mm3 (4.6-6.2); White Blood Count 7.1 K/mm3 (4.4-11.0)
[2023-08-12 15:13] LABS: Vitamin D,25 Hydroxy 75.9 ng/mL
[2023-08-12 15:26] LABS: ALB/GLOB Ratio 0.9 RATIO (0.9-2.4); AST(SGOT) 21 U/L (15-37); Alanine Aminotransfer ALT/SGPT 19 U/L (16-61); Albumin, Serum 3.5 g/dL (3.2-5.0); Alkaline Phosphatase 78 U/L (45-117); Anion Gap 8 (5-15); BUN 84 mg/dL (7-18); BUN/Creat Ratio 32.9 RATIO (10-20); Chloride 101 mmol/L (98-107); Creatinine, Serum 2.55 mg/dL (0.70-1.30); EST Glomerular Filtration Rate 26 mL/min (>60); Est Glom Filt Rate - Afr Amer 31 mL/min (>60); Globulin 3.7 g/dL (2.2-4.2); Glucose 160 mg/dL (74-106); Potassium 4.1 mmol/L (3.5-5.1); Protein, Total 7.2 g/dL (6.4-8.2); Sodium Level 138 mmol/L (136-145); Thyroid Stim Hormone (TSH) 2.24 uIU/mL (0.358-3.74)
== END | disposition home or self-care (01) ==
LOC: POLAB3 13:37
PROVIDERS: PCP Family Medicine Geriatric Medicine; Visit Provider Family Medicine Geriatric Medicine
DX: E11.65 Type 2 diabetes mellitus with hyperglycemia (principal); I10 Essential (primary) hypertension; E55.9 Vitamin D deficiency, unspecified
CPT/HCPCS: 36415; 80053; 82306; 84443; 85025

== ENCOUNTER → 2023-08-14 | Outpatient (CLI) | payer MEDICARE, SELFPAY | END | disposition home or self-care (01) | LOC: POLAB3 11:24 | PROVIDERS: PCP Family Medicine Geriatric Medicine; Visit Provider Family Medicine Geriatric Medicine | DX: D64.9 Anemia, unspecified (principal) | CPT/HCPCS: 82274 ==

== ENCOUNTER → 2023-11-10 | Outpatient (CLI) | payer MEDICARE, SELFPAY ==
[2023-11-10 15:53] LABS: Absolute Lymphocyte Count 1.62 X10^3/uL (0.83-4.51); Basophil# 0.03 X10^3/uL; Basophil% 0.5 % (0-1); Eosinophil# 0.22 X10^3/uL; Eosinophils% 3.5 % (0-5); Hematocrit 28.4 % (40-54); Hemoglobin 9.1 g/dL (13.0-16.5); Lymphocyte # 1.62 X10^3/ul (0.83-4.51); Lymphocyte % 25.6 % (19-41); Mean Corpuscular Hgb 29.5 pg (27.0-32.0); Mean Corpuscular Volume 92.2 fL (80-94); Mean Platelet Vol. 10.6 fl (6.2-12.0); Monocyte# 0.49 X10^3/uL; Monocyte% 7.7 % (0-10); NRBC Flagged by Analyzer 0 % (0-5); Neutrophil # 3.96 X10^3/uL (2.7-7.7); Neutrophil % 62.4 % (47-70); Platelet Count 139 K/mm3 (150-450); RBC Distribution Width CV 12.8 % (11.6-14.6); Red Blood Count 3.08 M/mm3 (4.6-6.2); White Blood Count 6.3 K/mm3 (4.4-11.0)
[2023-11-10 16:22] LABS: Vitamin D,25 Hydroxy 56.4 ng/mL
[2023-11-10 16:28] LABS: ALB/GLOB Ratio 0.9 RATIO (0.9-2.4); AST(SGOT) 20 U/L (15-37); Alanine Aminotransfer ALT/SGPT 18 U/L (16-61); Albumin, Serum 3.5 g/dL (3.2-5.0); Alkaline Phosphatase 83 U/L (45-117); Anion Gap 5 (5-15); BUN 80 mg/dL (7-18); BUN/Creat Ratio 34.5 RATIO (10-20); Calcium,Total 8.9 mg/dL (8.5-10.1); Chloride 101 mmol/L (98-107); Creatinine, Serum 2.32 mg/dL (0.70-1.30); EST Glomerular Filtration Rate 29 mL/min (>60); Est Glom Filt Rate - Afr Amer 35 mL/min (>60); Globulin 3.8 g/dL (2.2-4.2); Glucose 132 mg/dL (74-106); Protein, Total 7.3 g/dL (6.4-8.2); Sodium Level 139 mmol/L (136-145); Thyroid Stim Hormone (TSH) 3.13 uIU/mL (0.358-3.74)
== END | disposition home or self-care (01) ==
LOC: LAB 14:41
PROVIDERS: PCP Family Medicine Geriatric Medicine; Referring Provider Family Medicine Geriatric Medicine; Visit Provider Family Medicine Geriatric Medicine
DX: E11.65 Type 2 diabetes mellitus with hyperglycemia (principal); I10 Essential (primary) hypertension; E55.9 Vitamin D deficiency, unspecified
CPT/HCPCS: 36415; 80053; 82306; 84443; 85025

== ENCOUNTER → 2024-02-08 | Outpatient (CLI) | payer MEDICARE, SELFPAY ==
[2024-02-08 13:49] LABS: Absolute Lymphocyte Count 1.39 X10^3/uL (0.83-4.51); Absolute Neutrophil Count 3.9 X10^3/uL (2.0-7.7); Basophil# 0.03 X10^3/uL; Basophil% 0.5 % (0-1); Eosinophil# 0.19 X10^3/uL; Eosinophils% 3.2 % (0-5); Hemoglobin 8.2 g/dL (13.0-16.5); Lymphocyte # 1.39 X10^3/ul (0.83-4.51); Lymphocyte % 23.3 % (19-41); Mean Corp Hgb Conc 31.5 g/dL (32-36); Mean Corpuscular Volume 95.2 fL (80-94); Mean Platelet Vol. 10.4 fl (6.2-12.0); Monocyte# 0.44 X10^3/uL; Monocyte% 7.4 % (0-10); NRBC Flagged by Analyzer 0 % (0-5); Neutrophil # 3.89 X10^3/uL (2.7-7.7); Neutrophil % 65.3 % (47-70); Platelet Count 134 K/mm3 (150-450); RBC Distribution Width CV 13.3 % (11.6-14.6); RBC Distribution Width SD 45.6 fl (35.1-43.9); Red Blood Count 2.73 M/mm3 (4.6-6.2)
[2024-02-08 14:15] LABS: Vitamin D,25 Hydroxy 59.6 ng/mL
[2024-02-08 14:24] LABS: ALB/GLOB Ratio 0.9 RATIO (0.9-2.4); AST(SGOT) 17 U/L (15-37); Alanine Aminotransfer ALT/SGPT 16 U/L (16-61); Albumin, Serum 3.5 g/dL (3.2-5.0); Alkaline Phosphatase 74 U/L (45-117); Anion Gap 5 (5-15); BUN 95 mg/dL (7-18); BUN/Creat Ratio 31.7 RATIO (10-20); Calcium,Total 8.9 mg/dL (8.5-10.1); Chloride 100 mmol/L (98-107); EST Glomerular Filtration Rate 21 mL/min (>60); Est Glom Filt Rate - Afr Amer 26 mL/min (>60); Globulin 3.7 g/dL (2.2-4.2); Glucose 220 mg/dL (74-106); Potassium 4.2 mmol/L (3.5-5.1); Protein, Total 7.2 g/dL (6.4-8.2); Sodium Level 138 mmol/L (136-145)
== END | disposition home or self-care (01) ==
LOC: POLAB3 13:34
PROVIDERS: PCP Family Medicine Geriatric Medicine; Visit Provider Family Medicine Geriatric Medicine
DX: I10 Essential (primary) hypertension (principal); E11.65 Type 2 diabetes mellitus with hyperglycemia; E55.9 Vitamin D deficiency, unspecified
CPT/HCPCS: 36415; 80053; 82306; 84443; 85025

== ENCOUNTER → 2024-02-25 | Outpatient (CLI) | payer MEDICARE, SELFPAY ==
--- NOTE | 2024-02-25 16:05 | RAD_ITS ---
INDICATION: OA EXAMINATION/TECHNIQUE: X-RAY - RIGHT XR Knee 3 Views 3 VIEWS COMPARISON: FINDINGS: SOFT TISSUES: No soft tissue swelling or gas. No radiopaque foreign body. Vascular cavitations. BONES/JOINTS: No acute fracture or subluxation.. Degenerative spurring of the femoral tibial and patellofemoral compartments. Joint space narrowing of the medial patellofemoral and medial and patellofemoral compartments .. No sclerotic or destructive changes observed. RAD/Knee 3 Views IMPRESSION: Degenerative changes. Electronically Signed: Darshan Buchanan DO at 19:16 EDT Reading Location ID and State: [facility] / [place] Tel [phone], Service support ,
[2024-02-25 17:14] LABS: Absolute Lymphocyte Count 1.56 X10^3/uL (0.83-4.51); Absolute Neutrophil Count 4.7 X10^3/uL (2.0-7.7); Basophil# 0.04 X10^3/uL; Basophil% 0.6 % (0-1); Eosinophil# 0.24 X10^3/uL; Eosinophils% 3.3 % (0-5); Hematocrit 25.6 % (40-54); Hemoglobin 8.1 g/dL (13.0-16.5); Lymphocyte # 1.56 X10^3/ul (0.83-4.51); Lymphocyte % 21.7 % (19-41); Mean Corp Hgb Conc 31.6 g/dL (32-36); Mean Corpuscular Hgb 29.7 pg (27.0-32.0); Mean Corpuscular Volume 93.8 fL (80-94); Mean Platelet Vol. 11.1 fl (6.2-12.0); Monocyte# 0.57 X10^3/uL; Monocyte% 7.9 % (0-10); NRBC Flagged by Analyzer 0 % (0-5); Neutrophil % 65.4 % (47-70); Platelet Count 163 K/mm3 (150-450); RBC Distribution Width CV 13.1 % (11.6-14.6); RBC Distribution Width SD 44.9 fl (35.1-43.9); RET-HE 32.8 pg (30-35); Red Blood Count 2.73 M/mm3 (4.6-6.2); Reticulocyte Count 2.09 % (0.5-1.5); White Blood Count 7.2 K/mm3 (4.4-11.0)
[2024-02-25 17:36] LABS: Ferritin 126 ng/mL (26-388); Iron 51 ug/dL (65-175); Iron Binding Capacity,Total 256 ug/dL (250-450); PERCENT IRON SATURATION 19.9 % (15.0-55.0)
[2024-02-25 17:55] LABS: Vitamin B12 641 pg/mL (211-911)
== END | disposition home or self-care (01) ==
PROVIDERS: PCP Family Medicine Geriatric Medicine; Referring Provider Family Medicine Geriatric Medicine; Visit Provider Family Medicine Geriatric Medicine
DX: D50.9 Iron deficiency anemia, unspecified (principal); K92.1 Melena; I10 Essential (primary) hypertension
CPT/HCPCS: 36415; 73562; 82274; 82607; 82728; 82746; 83540; 83550; 85025; 85045

== ENCOUNTER 2024-03-15 15:08 | Inpatient (IN) | payer MEDICARE, SELFPAY ==
[2024-03-15] VITALS (27 sets, daily range): BP systolic 88–137; BP diastolic 54–81; PULSE 59–83; RESP 15–22; TEMP 36.3–36.5; O2SAT 93–100; BMI 36.2; BMI 29.8
--- NOTE | 2024-03-15 15:36 | EKG12_ITS ---
Test Reason : CP Blood Pressure : */* mmHG Vent. Rate : 78 BPM Atrial Rate : 78 BPM P-R Int : 264 ms QRS Dur : 96 ms QT Int : 352 ms P-R-T Axes : 23 -37 0 degrees QTcB Int : 401 ms Sinus rhythm with marked sinus arrhythmia with 1st degree A-V block Left axis deviation Minimal voltage criteria for LVH, may be normal variant ( R in aVL ) Abnormal ECG Confirmed by ROLANDO PLEITEZ MD ([id number]), editor department DENNIS RUBIO ([id number]) on 03/17/2024 11:30:11 AM Referred By: Confirmed By: ROLANDO PLEITEZ MD
--- NOTE | 2024-03-15 15:53 | ED.VIS.CHEST ---
HPI History of Present Illness Chief Complaint: Chest Pain Informant: patient and family Narrative Narrative: Presents with daughter evaluation worsening chest heaviness over the last 2 weeks with exertion. States continue activities for 5 minutes for has tightness symptoms last up to 10 minutes. Bilateral upper arm numbness and dyspnea. Occasional nausea. No diaphoresis. No cardiac history. COPD history remote tobacco he is on 4 L oxygen since being diagnosed with COVID a few years ago. Denies cough. Denies recent travel or surgeries. No history of PE or DVT. Stress test 8 years ago. Denies any cardiac history. No history of heart caths. Per daughter on and off chest pains saw PCP [address] Bhakta. Referred to cardiology appointment March 23. However states symptoms progressed and more frequent. Last symptoms were yesterday. 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 Vitamin D deficiency SOB (shortness of breath) GERD (gastroesophageal reflux disease) Heart failure with preserved ejection fraction Diabetic polyneuropathy Hypothyroidism CKD (chronic kidney disease), stage IV Atherosclerotic cardiovascular disease COPD (chronic obstructive pulmonary disease) Chronic hypoxemic respiratory failure Pneumonia due to COVID-19 virus Hypertension PVCs (premature ventricular contractions) Anemia Obesity (BMI 30.0-34.9) Diabetes mellitus, type II HLD (hyperlipidemia) Chest pain Home Medications ?Medication ?Instructions ?Recorded ?Last Taken ?Type famotidine 40 mg tablet 40 mg PO DAILY GERD 07/13/18 Unknown History pen needles, lancets, test strips See Rx Instructions .Route 04/23/22 Unknown Rx diabetic .COMPLEX #100 ea glimepiride 4 mg tablet 4 mg PO DAILY DIABETES 06/23/22 Unknown History melatonin 10 mg tablet 10 mg PO QHS SLEEP 06/23/22 Unknown History levothyroxine 25 mcg tablet 25 mcg PO DAILY THYROID 07/09/22 Unknown History ascorbate calcium (vitamin C) 500 500 mg PO DAILY SUPPLEMENT 03/09/24 Unknown History mg tablet carvedilol 6.25 mg tablet (Coreg) 3.125 mg PO BID BLOOD PRESSURE 03/09/24 Unknown History furosemide 40 mg tablet 40 mg PO BID EDEMA 03/09/24 Unknown History gabapentin 300 mg capsule 300 mg PO BID NEUROPATHY 03/09/24 Unknown History polysaccharide iron complex 150 mg 150 mg PO DAILY SUPPLEMENT 03/09/24 Unknown History iron capsule (Ferrex) insulin degludec 100 unit/mL (3 20 unit subcut BID DIABETES 03/15/24 Unknown History mL) subcutaneous pen (Tresiba FlexTouch U-100 insulin) valsartan 320 1 tab PO DAILY BLOOD PRESSURE 03/15/24 Unknown History mg-hydrochlorothiazide 12.5 mg tablet Allergy/AdvReac Type Severity Reaction Status Date / Time No Known Allergies Allergy Verified 03/15/24 15:09 Family History Brother Diabetes Mother Diabetes Sister Diabetes Father Heart disease Surgical History History of appendectomy Social History Smoking Status: Former smoker alcohol intake: never EXAM Physical Exam Const Vital Signs: 03/15/24 15:10 03/15/24 15:40 03/15/24 16:02 Temperature 97.6 F L Temperature Source Temporal Pulse Rate 83 70 Respiratory Rate 18 19 H Blood Pressure 117/64 Blood Pressure Mean 81 Pulse Ox 97 100 Oxygen Delivery Method Nasal Cannula Nasal Cannula Oxygen Flow Rate (L/min) 4 4 03/15/24 16:15 03/15/24 16:30 03/15/24 16:45 Temperature Temperature Source Pulse Rate 69 64 68 Respiratory Rate 15 18 17 Blood Pressure 118/80 100/56 L Blood Pressure Mean 92 71 Pulse Ox 100 100 100 Oxygen Delivery Method Nasal Cannula Oxygen Flow Rate (L/min) 4 03/15/24 17:00 03/15/24 17:15 03/15/24 17:30 Temperature Temperature Source Pulse Rate 73 68 61 Respiratory Rate 18 17 17 Blood Pressure 113/71 108/60 Blood Pressure Mean 76 76 Pulse Ox 100 100 100 Oxygen Delivery Method Nasal Cannula Room Air Oxygen Flow Rate (L/min) 4 03/15/24 17:45 03/15/24 18:00 03/15/24 18:16 Temperature Temperature Source Pulse Rate 63 64 79 Respiratory Rate 19 H 17 17 Blood Pressure 122/62 H Blood Pressure Mean 76 Pulse Ox 100 100 Oxygen Delivery Method Room Air Oxygen Flow Rate (L/min) 03/15/24 19:00 03/15/24 19:15 03/15/24 19:30 Temperature Temperature Source Pulse Rate 66 68 63 Respiratory Rate 17 17 20 H Blood Pressure 88/57 L 119/63 Blood Pressure Mean 68 80 Pulse Ox 100 Oxygen Delivery Method Nasal Cannula Oxygen Flow Rate (L/min) 4 03/15/24 19:45 03/15/24 20:01 03/15/24 20:01 Temperature Temperature Source Pulse Rate 67 66 Respiratory Rate 19 H 18 Blood Pressure 110/54 L 110/54 L Blood Pressure Mean 72 72 Pulse Ox 99 99 Oxygen Delivery Method Nasal Cannula Nasal Cannula Oxygen Flow Rate (L/min) 4 4 03/15/24 20:06 03/15/24 20:30 Temperature Temperature Source Pulse Rate 68 68 Respiratory Rate 22 H 18 Blood Pressure 137/68 H Blood Pressure Mean 87 Pulse Ox 100 Oxygen Delivery Method Oxygen Flow Rate (L/min) Positive well nourished and well developed Constitutional Narrative: 4 L nasal cannula, no distress. General Appearance ED: well developed and NAD HEENT Reports moist mucous membranes normocephalic and atraumatic Eyes EOMs intact bilaterally and conjunctivae normal General Eye ED: Yes normal appearance of both eyes Neck no lymphadenopathy and supple General: Negative for tenderness Chest Wall Chest: Negative for tenderness Resp normal respiratory effort and normal air movement Effort and Inspection: symmetric chest movement; Negative for respiratory distress Cardio regular rate, regular rhythm and no murmurs Peripheral Pulses: pulses 2+ throughout GI normal to inspection, nondistended, normoactive bowel sounds and non-tender Palpation: Negative for guarding or rebound tenderness present Back/Spine no CVA tenderness and no thoracic nor lumbar tenderness Extremity normal to inspection General Extremety ED: Negative for edema or tenderness General Extremity: Negative for edema Neuro oriented x3 and no sensory deficits noted Sensorium / Orientation: awake and alert Skin no rashes or lesions noted and no wounds MDM MDM MDM Narrative Medical decision making narrative: Interventions / MDM: Differential diagnosis: NSTEMI, acute kidney injury, history of COPD on 4 L Diagnosis considered but do not suspect: N/A My EKG interpretation: Sinus rhythm rate of 78, no ST changes isolated T wave version leads III nonspecific. First-degree AV block. QTc 401. Imaging independently reviewed and interpreted by myself: Chest x-ray 1 view: No acute process. 3 view left hip and pelvis: No fracture or dislocation. External documents reviewed: N/A Test considered but not ordered:N/A ED course: Patient no current chest symptoms last symptoms yesterday. EKG no acute findings. His symptoms are concerning for angina symptoms. Cardiac workup was initiated. He was given aspirin. Reevaluation was complaining of hip pain reported had a fall 2 days ago. He has been ambulatory. Treated tramadol. He was sent for x-ray of the hip. 3 view left hip and pelvis interpreted myself shows no acute process. 1958: Troponin returned at 412. Also worsening creatinine 5.22 BUN 148. Last creatinine last month with 3. Hemoglobin 8.5 rectal exam Hemoccult negative. I discussed with cardiology Dr. Childers, discussed his angina symptoms. EKG no acute findings. Will start heparin. Will admit to the hospitalist service. However states like his acute kidney injury stabilized prior to any planned catheterization. Echocardiogram while in the hospital. I discussed with hospitalist Dr. Lou for admission to PCU. Re-evaluation: stable Disposition discussed with patient/family/significant other: Patient and family Case discussed with consulting clinician: Cardiology, hospitalist This note was generated with [employer] dictation software. It may contain incorrect words, spelling, and punctuation that were not noted in checking the note before signing. Lab Data Attestation: I reviewed the patient's lab results. Labs: Laboratory Results - last 24 hr 03/15/24 03/15/24 03/15/24 15:46 17:44 20:24 WBC 7.3 RBC 2.85 L Hgb 8.5 L Hct 26.9 L MCV 94.4 H MCH 29.8 MCHC 31.6 L RDW Std Deviation 46.4 H RDW Coeff of Elmer 13.4 Plt Count 152 MPV 10.9 Immature Gran % (Auto) 0.300 Neut % (Auto) 67.7 Lymph % (Auto) 21.2 Fajardo % (Auto) 7.6 Eos % (Auto) 2.9 Baso % (Auto) 0.3 Absolute Neuts (auto) 4.9 Absolute Lymphs (auto) 1.54 Nucleated RBC % 0 Retic Count 1.59 H Immature Retic Fraction 4.20 Retic Hgb Equivalent 31.4 PT 14.7 INR 1.2 APTT 32.8 Sodium 139 Potassium 4.7 Chloride 104 Carbon Dioxide 27.0 Anion Gap 8 BUN 148 H* Creatinine 5.22 H Estim Creat Clear Calc 11.98 Est GFR (MDRD) Af Amer 14 L Est GFR (MDRD) Non-Af 11 L BUN/Creatinine Ratio 28.4 H Glucose 161 H Calcium 8.8 Phosphorus 5.2 H Magnesium 2.2 Iron 49 L TIBC 226 L Iron Saturation 21.7 Ferritin 111 Troponin I High Sens 412 H* 342 H* B-Natriuretic Peptide 13.8 Radiography Diagnostic Testing: Clinical Impression(s) from Imaging Studies Chest X-Ray 03/15/24 16:10 IMPRESSION: Chronic interstitial thickening most pronounced in the lower lobes with improved aeration since prior exam. No new consolidative densities or other significant change Electronically Signed: Yan Staley MD at 16:43 EDT , Hip/Pelvis X-Ray 03/15/24 19:30 IMPRESSION: Normal x-ray examination of the pelvis and hip. Electronically Signed: Yan Staley MD at 20:17 EDT , Critical Care Time Critical Care Time: Yes Critical care time (excluding procedures): 30-74 minutes, Discussing w/Patient &/or Family/Horse Racing Manager, Discussing w/Consultants, Arranging Admission or Transfer, Performing Direct Patient Care at Bedside and - (45 minutes) Discharge Plan Dx/Rx/DC Orders Clinical Impression: Anemia, COPD (chronic obstructive pulmonary disease), Diabetes mellitus, type II, Non-ST elevation WI (NSTEMI), Angina of effort, KALYN (acute kidney injury) Disposition Disposition: Acute Care Hospital [facility] Discharge Date/Time: 03/15/24 22:09
[2024-03-15 16:00] LABS: Absolute Lymphocyte Count 1.54 X10^3/uL (0.83-4.51); Absolute Neutrophil Count 4.9 X10^3/uL (2.0-7.7); Basophil# 0.02 X10^3/uL; Basophil% 0.3 % (0-1); Eosinophil# 0.21 X10^3/uL; Eosinophils% 2.9 % (0-5); Hematocrit 26.9 % (40-54); Hemoglobin 8.5 g/dL (13.0-16.5); Lymphocyte # 1.54 X10^3/ul (0.83-4.51); Lymphocyte % 21.2 % (19-41); Mean Corp Hgb Conc 31.6 g/dL (32-36); Mean Corpuscular Hgb 29.8 pg (27.0-32.0); Mean Corpuscular Volume 94.4 fL (80-94); Mean Platelet Vol. 10.9 fl (6.2-12.0); Monocyte# 0.55 X10^3/uL; Monocyte% 7.6 % (0-10); NRBC Flagged by Analyzer 0 % (0-5); Neutrophil # 4.92 X10^3/uL (2.7-7.7); Neutrophil % 67.7 % (47-70); Platelet Count 152 K/mm3 (150-450); RBC Distribution Width CV 13.4 % (11.6-14.6); RBC Distribution Width SD 46.4 fl (35.1-43.9); Red Blood Count 2.85 M/mm3 (4.6-6.2); White Blood Count 7.3 K/mm3 (4.4-11.0)
[2024-03-15] MEDS: Aspirin 81 MG TAB.CHEW 324 MG PO (16:07)
--- NOTE | 2024-03-15 16:10 | RAD_ITS ---
STUDY: X-RAY CHEST REASON FOR EXAM: Male, 83 years old. chest pain TECHNIQUE: AP portable COMPARISON: April 19, 2022 FINDINGS: Mild chronic interstitial thickening more pronounced in the lower lobes. There is no demonstrated pleural abnormality. Normal size heart. Normal mediastinum and shiva. Normal visualized pulmonary arteries. Mildly calcified aortic arch and descending thoracic aorta. Dorsal spine and shoulders demonstrate degenerative change Normal visualized ribs, clavicles, and shoulders. There is no demonstrated abnormality of the visualized soft tissue structures of the upper abdomen. RAD/Chest 1 View (Portable) IMPRESSION: Chronic interstitial thickening most pronounced in the lower lobes with improved aeration since prior exam. No new consolidative densities or other significant change Electronically Signed: Yan Staley MD at 16:43 EDT ,
--- NOTE | 2024-03-15 19:30 | RAD_ITS ---
STUDY: X-RAY - PELVIS AND LEFT HIP REASON FOR EXAM: Male, 83 years old. injury TECHNIQUE: 3 views of the pelvis and hip. COMPARISON: None. FINDINGS: There is a non-specific bowel gas pattern. Normal visualized soft tissue structures. Normal bilateral iliac wings, sacroiliac joints and visualized sacrum. Normal bilateral superior and inferior pubic rami. Normal pubic symphysis. Normal bilateral ischial tuberosities. Normal visualized femoral head. Normal acetabulum. Normal hip joint. RAD/HIP, UNI W/ Pelvis 2-3 Views IMPRESSION: Normal x-ray examination of the pelvis and hip. Electronically Signed: Yan Staley MD at 20:17 EDT ,
--- NOTE | 2024-03-15 19:36 | ED.RN ---
1835: LAB CALLED FOR OUTSTANDING RESULTS. REPORT ENTERED.
[2024-03-15 19:48] LABS: Anion Gap 8 (5-15); BUN 148 mg/dL (7-18); BUN/Creat Ratio 28.4 RATIO (10-20); Calcium,Total 8.8 mg/dL (8.5-10.1); Chloride 104 mmol/L (98-107); Creatinine, Serum 5.22 mg/dL (0.70-1.30); EST Glomerular Filtration Rate 11 mL/min (>60); Est Glom Filt Rate - Afr Amer 14 mL/min (>60); Estimated Creatinine Clearance 11.98 ml/min; Glucose 161 mg/dL (74-106); Potassium 4.7 mmol/L (3.5-5.1); Sodium Level 139 mmol/L (136-145); Troponin-I HS (w/2H Reflex) 412 pg/mL (3.0-78.0)
[2024-03-15] MEDS: traMADol 50 MG Tablet PO (19:49)
[2024-03-15 19:58] LABS: Reflex Troponin-HS? (from REC) Y
[2024-03-15 20:24] LABS: Troponin-I HS 342 pg/mL (3.0-78.0)
[2024-03-15] MEDS: Heparin Injection (Vial) 5,000 UNIT/ML VIAL 4000 UNIT IV (20:31)
[2024-03-15] MEDS: HEPARIN/D5w 25,000 UNITS 25,000 UNITS/250 ML IV.SOLN. 10 UNITS CONT INF (20:35)
[2024-03-15 20:58] LABS: International Normalized Ratio 1.2; Prothrombin Time (Protime)PT. 14.7 SECONDS (11.7-14.9)
[2024-03-15 20:59] LABS: Partial Thromboplast Time 32.8 Seconds (24.1-36.2)
--- NOTE | 2024-03-15 21:04 | HP.PCM.HOS_ITS ---
HPI - General General Date of Admission: 03/15/24 Date of Service: 03/15/24 Chief Complaint: Intermittent exertional chest tightness and shortness of breath for 2 weeks. HPI Narrative MARQUISE COLLEEN, dwaine a 83 M came to ED with exertional chest tightness and shortness of breath for 2 weeks. Patient described that when he walks or does light exertion at work he feels chest tightness/pressure-like with radiation to both arms along with shortness of breath. It gets better after 10 minutes of rest. He denies dizziness lightheadedness, syncope or diaphoresis. Patient denies any prior cardiac stent but he has a history of chronic HFpEF and CAD with angina pectoris. In ED, vitals reviewed. Troponin elevated. Thermometer Tester consulted and started on IV heparin drip. 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 Vitamin D deficiency SOB (shortness of breath) GERD (gastroesophageal reflux disease) Heart failure with preserved ejection fraction Diabetic polyneuropathy Hypothyroidism CKD (chronic kidney disease), stage IV Atherosclerotic cardiovascular disease COPD (chronic obstructive pulmonary disease) Chronic hypoxemic respiratory failure Pneumonia due to COVID-19 virus Hypertension PVCs (premature ventricular contractions) Anemia Obesity (BMI 30.0-34.9) Diabetes mellitus, type II HLD (hyperlipidemia) Chest pain Home Medications ?Medication ?Instructions ?Recorded ?Last Taken ?Type famotidine 40 mg tablet 40 mg PO DAILY GERD 07/13/18 Unknown History pen needles, lancets, test strips See Rx Instructions .Route 04/23/22 Unknown Rx diabetic .COMPLEX #100 ea glimepiride 4 mg tablet 4 mg PO DAILY DIABETES 06/23/22 Unknown History melatonin 10 mg tablet 10 mg PO QHS SLEEP 06/23/22 Unknown History levothyroxine 25 mcg tablet 25 mcg PO DAILY THYROID 07/09/22 Unknown History ascorbate calcium (vitamin C) 500 500 mg PO DAILY SUPPLEMENT 03/09/24 Unknown History mg tablet carvedilol 6.25 mg tablet (Coreg) 3.125 mg PO BID BLOOD PRESSURE 03/09/24 Unknown History furosemide 40 mg tablet 40 mg PO BID EDEMA 03/09/24 Unknown History gabapentin 300 mg capsule 300 mg PO BID NEUROPATHY 03/09/24 Unknown History polysaccharide iron complex 150 mg 150 mg PO DAILY SUPPLEMENT 03/09/24 Unknown History iron capsule (Ferrex) insulin degludec 100 unit/mL (3 20 unit subcut BID DIABETES 03/15/24 Unknown History mL) subcutaneous pen (Tresiba FlexTouch U-100 insulin) valsartan 320 1 tab PO DAILY BLOOD PRESSURE 03/15/24 Unknown History mg-hydrochlorothiazide 12.5 mg tablet Allergy/AdvReac Type Severity Reaction Status Date / Time No Known Allergies Allergy Verified 03/15/24 15:09 Family History Brother Diabetes Mother Diabetes Sister Diabetes Father Heart disease Surgical History History of appendectomy Social History Smoking Status: Former smoker alcohol intake: never ROS ROS Narrative Constitutional: Reports fatigue and weakness. No fever. HEENT: Reports systems reviewed and no addt'l complaints, except as documented Respiratory/Chest: History of smoking, quit. Denies chronic lung disease. CVS: As described in HPI Gastrointestinal: Denies coffee ground emesis, hematemesis or vomiting. Denies abdominal pain. Genitourinary: Complain of burning pain for about 3 to 4 days. Musculoskeletal: 3 falls in last 1 month. Denies acute joint pain or limited range of motion. Neurologic: Denies seizure-like symptoms. skin: Bruises on both legs. Endocrinology: Reports systems reviewed and no addt'l complaints, except as documented Hematologic/Lymphatic: Reports systems reviewed and no addt'l complaints, except as documented Rest 14 ROS are negative except as mentioned in HPI Vital Signs Vital Signs Vital Signs: 03/15/24 15:10 03/15/24 15:40 03/15/24 16:02 Temperature 97.6 F L Temperature Source Temporal Pulse Rate 83 70 Respiratory Rate 18 19 H Blood Pressure 117/64 Blood Pressure Mean 81 Pulse Ox 97 100 Oxygen Delivery Method Nasal Cannula Nasal Cannula Oxygen Flow Rate (L/min) 4 4 03/15/24 16:15 03/15/24 16:30 03/15/24 16:45 Temperature Temperature Source Pulse Rate 69 64 68 Respiratory Rate 15 18 17 Blood Pressure 118/80 100/56 L Blood Pressure Mean 92 71 Pulse Ox 100 100 100 Oxygen Delivery Method Nasal Cannula Oxygen Flow Rate (L/min) 4 03/15/24 17:00 03/15/24 17:15 03/15/24 17:30 Temperature Temperature Source Pulse Rate 73 68 61 Respiratory Rate 18 17 17 Blood Pressure 113/71 108/60 Blood Pressure Mean 76 76 Pulse Ox 100 100 100 Oxygen Delivery Method Nasal Cannula Room Air Oxygen Flow Rate (L/min) 4 03/15/24 17:45 03/15/24 18:00 03/15/24 18:16 Temperature Temperature Source Pulse Rate 63 64 79 Respiratory Rate 19 H 17 17 Blood Pressure 122/62 H Blood Pressure Mean 76 Pulse Ox 100 100 Oxygen Delivery Method Room Air Oxygen Flow Rate (L/min) 03/15/24 19:00 03/15/24 19:15 03/15/24 19:30 Temperature Temperature Source Pulse Rate 66 68 63 Respiratory Rate 17 17 20 H Blood Pressure 88/57 L 119/63 Blood Pressure Mean 68 80 Pulse Ox 100 Oxygen Delivery Method Nasal Cannula Oxygen Flow Rate (L/min) 4 03/15/24 19:45 03/15/24 20:01 03/15/24 20:01 Temperature Temperature Source Pulse Rate 67 66 Respiratory Rate 19 H 18 Blood Pressure 110/54 L 110/54 L Blood Pressure Mean 72 72 Pulse Ox 99 99 Oxygen Delivery Method Nasal Cannula Nasal Cannula Oxygen Flow Rate (L/min) 4 4 03/15/24 20:06 03/15/24 20:30 03/15/24 21:00 Temperature Temperature Source Pulse Rate 68 68 62 Respiratory Rate 22 H 18 20 H Blood Pressure 137/68 H Blood Pressure Mean 87 Pulse Ox 100 100 Oxygen Delivery Method Oxygen Flow Rate (L/min) Weight Weight: 224 lb 6.889 oz Body Mass Index (BMI) 36.2 Physical Exam Narrative General: Alert, Oriented x3, Cooperative HEENT: Atraumatic, PERRLA, EOMI, Normocephalic Oral: Oral mucosa moist. No Gingival or Mucosal Lesions/ Ulcerations Neck: Supple, No JVD, Negative Carotid Bruits Chest wall/Lungs: Air entry diffusely diminished in both lungs. Bilateral expiratory fine wheezing. Cardiovascular: Regular rate, Regular Rhythm, Normal S1, Normal S2, No M/G/R Abdomen: Bowel Sounds Present, Soft, Non Tender, Non-Distended : No dysuria. No renal angle tenderness. No suprapubic tenderness. Extremities: Mild bilateral pedal edema, 2+. Capillary Refill Less than 3 Seconds Skin: Bilateral knee bruises from previous fall Musculoskeletal: No Tenderness to Palpation of Joints or Extremities Neurological: Cranial nerves II-XII grossly intact, DTR 2+/4. No acute focal neurological deficit. Psych/Mental Status: Normal Affect, Appropriate. Results Lab / Micro Data 03/15/24 15:46 03/15/24 15:46 Labs: Laboratory Results - last 24 hr 03/15/24 15:46: WBC 7.3, RBC 2.85 L, Hgb 8.5 L, Hct 26.9 L, MCV 94.4 H, MCH 29.8, MCHC 31.6 L, RDW Std Deviation 46.4 H, RDW Coeff of Elmer 13.4, Plt Count 152, MPV 10.9, Immature Gran % (Auto) 0.300, Neut % (Auto) 67.7, Lymph % (Auto) 21.2, Anderson % (Auto) 7.6, Eos % (Auto) 2.9, Baso % (Auto) 0.3, Absolute Neuts (auto) 4.9, Absolute Lymphs (auto) 1.54, Nucleated RBC % 0, Sodium 139, Potassium 4.7, Chloride 104, Carbon Dioxide 27.0, Anion Gap 8, BUN 148 H*, C reatinine 5.22 H, Estim Creat Clear Calc 11.98, Est GFR (MDRD) Af Amer 14 L, Est GFR (MDRD) Non-Af 11 L, BUN/Creatinine Ratio 28.4 H, Glucose 161 H, Calcium 8.8, Troponin I High Sens 412 H* 03/15/24 17:44: Troponin I High Sens 342 H* 03/15/24 20:24: PT 14.7, INR 1.2, APTT 32.8 Micro: Microbiology 03/15/24 17:05 Stool Stool Occult Blood (GREG) - Final Imaging Radiology Impression Chest X-Ray 03/15/24 16:10 IMPRESSION: Chronic interstitial thickening most pronounced in the lower lobes with improved aeration since prior exam. No new consolidative densities or other significant change Electronically Signed: Yan Staley MD at 16:43 EDT , Hip/Pelvis X-Ray 03/15/24 19:30 IMPRESSION: Normal x-ray examination of the pelvis and hip. Electronically Signed: Yan Staley MD at 20:17 EDT Reading Location ID and State: [facility] / [place] Tel , Service support , Assessment & Plan Assessment/Plan (1) Non-ST elevation PR (NSTEMI): (2) KALYN (acute kidney injury): PLAN: Plan This is a 83-year-old gentleman admitted for exertional chest tightness and shortness of breath for 2 weeks. 1. Non-STEMI with history of CAD/angina pectoris, chronic HFpEF: Patient is being admitted in PCU. Twelve-lead EKG from ED and admission reviewed. NSR with sinus arrhythmia, first-degree AV block, LAD, LVH, 78 bpm. No change in admission EKG except heart rate 62/min. QTc 309 ms. Troponin 412, 389. Cycle cardiac enzymes. 2D echo tomorrow AM. Thermometer Tester is consulted. Patient started on aspirin, carvedilol, IV heparin drip, high intensity statin. Hold furosemide because of KALYN. 2. KALYN on CKD stage IV: Patient baseline creatinine is around 2.5?3 mg/dL. It was 1.56 in September 2022. Progressively increasing. Admitted with BUN/creatinine 148/5.22. Phosphorus 5.2. Magnesium 2.2. Anion gap 8. Bicarb 27. Rope Rider consulted. Renal and bladder ultrasound ordered. Urine lites ordered. 3. Suspected UTI: Patient complained of burning micturition for last 3 days. UA and urine culture ordered. Empirically started on IV ceftriaxone after urine collection 4. Chronic hypoxic respiratory failure with COPD and ex-smoker: Patient on 3 L of home oxygen continuous. Follows Dr. Levy. PFT May 2023 shows reversible mild mixed ventilatory defect with a disproportionate reduction in DLCO. DuoNeb as needed. History of smoking quit 20 years ago. Was smoking 1 and half packet started at the age of 15. Patient had COVID pneumonia in April 2022 and since then has been using oxygen. 5. Hypertension: Blood pressure systolic in 100s to 110s and KALYN on CKD therefore not candidate for KOBY/ARB. Hold antihypertensive medication including valsartan HCTZ. 6. Dyslipidemia: On atorvastatin. Fasting lipid profile tomorrow AM. 7. Type 2 diabetes mellitus: Glucose is 161. Accu-Chek before meals and at bedtime with Humalog sliding scale coverage and hypoglycemia protocol. Hold glimepiride. On insulin Tresiba 20 8 subcutaneous twice daily decreased to 15 units twice daily with holding parameters. Monitor Accu-Cheks and titrate accordingly. 8. Moderate macrocytic anemia of chronic disease: Hemoglobin has been 8.1-8.2. Current 8.5/26.9%. Platelet count 152,000. Iron workup shows saturation 21.7% normal with low serum iron and TIBC. Ferritin normal. IV iron 1 dose ordered. Stool for occult blood negative. 9. Hypothyroidism: Levothyroxine 25 mcg daily. TSH and free T4 tomorrow AM. 10. DVT prophylaxis: On IV heparin drip. Microbiology Past 72 Hours 03/15/24 17:05 Stool Stool Occult Blood (GREG) - Final Laboratory Results 03/15/24 15:46: WBC 7.3, RBC 2.85 L, Hgb 8.5 L, Hct 26.9 L, MCV 94.4 H, MCH 29.8, MCHC 31.6 L, RDW Std Deviation 46.4 H, RDW Coeff of Elmer 13.4, Plt Count 152, MPV 10.9, Immature Gran % (Auto) 0.300, Neut % (Auto) 67.7, Lymph % (Auto) 21.2, Anderson % (Auto) 7.6, Eos % (Auto) 2.9, Baso % (Auto) 0.3, Absolute Neuts (auto) 4.9, Absolute Lymphs (auto) 1.54, Nucleated RBC % 0, Retic Count 1.59 H, Immature Retic Fraction 4.20, Retic Hgb Equivalent 31.4, Sodium 139, Potassium 4.7, Chloride 104, Carbon Dioxide 27.0, Anion Gap 8, BUN 148 H*, Creatinine 5.22 H, Estim Creat Clear Calc 11.98, Est GFR (MDRD) Af Amer 14 L, Est GFR (MDRD) Non-Af 11 L, BUN/Creatinine Ratio 28.4 H, Glucose 161 H, Calcium 8.8, Troponin I High Sens 412 H*, B-Natriuretic Peptide 13.8 03/15/24 17:44: Phosphorus 5.2 H, Magnesium 2.2, Iron 49 L, TIBC 226 L, Iron Saturation 21.7, Ferritin 111, Troponin I High Sens 342 H* 03/15/24 20:24: PT 14.7, INR 1.2, APTT 32.8 03/15/24 23:12: Troponin I High Sens 383 H* Charges/Coding Visit Charges Inpatient E&M: 41642 Init Hosp L3 Procedures Hospitalists Procedures: 23750 Advncd Care Plan 30 Min
[2024-03-15 21:18] LABS: Platelet Count 161 K/mm3 (150-450); RET-HE 31.4 pg (30-35); Reticulocyte Count 1.59 % (0.5-1.5)
[2024-03-15 21:32] LABS: Ferritin 111 ng/mL (26-388); Iron 49 ug/dL (65-175); Iron Binding Capacity,Total 226 ug/dL (250-450); Magnesium 2.2 mg/dL (1.6-2.6); PERCENT IRON SATURATION 21.7 % (15.0-55.0); Phosphorus 5.2 mg/dL (2.5-4.9)
[2024-03-15 21:37] LABS: BNP,B-Type NATRIURETIC PEPTIDE 13.8 pg/mL (0-100)
--- NOTE | 2024-03-15 22:22 | EKG12_ITS ---
Test Reason : CP ADMIT Blood Pressure : */* mmHG Vent. Rate : 62 BPM Atrial Rate : 62 BPM P-R Int : 272 ms QRS Dur : 98 ms QT Int : 384 ms P-R-T Axes : 22 -34 -8 degrees QTcB Int : 389 ms Sinus rhythm with 1st degree A-V block Left axis deviation Minimal voltage criteria for LVH, may be normal variant ( R in aVL ) Abnormal ECG When compared with ECG of 15-Mar-2024 15:33, MANUAL COMPARISON REQUIRED DATA IS UNCONFIRMED Confirmed by MAIK EVANS, ROLANDO ([id number]), newspaper managing editor DENNIS RUBIO ([id number]) on 03/17/2024 11:35:13 AM Referred By: Confirmed By: ROLANDO PLEITEZ MD
[2024-03-15 23:50] LABS: Troponin-I HS 383 pg/mL (3.0-78.0)
[2024-03-15] MEDS: Carvedilol 3.125 MG TABLET PO (23:57)
[2024-03-15] MEDS: 0.9% Normal Saline (1000mL) 1,000 ML 75 ML IV (23:57)
[2024-03-15] MEDS: MELATONIN 10 MG TABLET PO (23:58)
[2024-03-15] MEDS: Senna/Docusate Sodium 1 Tablet 2 TABLET PO (23:58)
[2024-03-16] VITALS (23 sets, daily range): BP systolic 83–168; BP diastolic 38–135; PULSE 64–88; RESP 15–20; TEMP 36.4–37; O2SAT 83–100; BMI 29.9
[2024-03-16] MEDS: Insulin Glargine-YFGN 100 UNIT/ML Pen 15 UNIT SC ×2 (00:08→21:58)
[2024-03-16 00:36] LABS: Bedside Glucose 131 mg/dL (74-106)
[2024-03-16] MEDS: Ceftriaxone 1 GM/50 ML BAG IV ×2 (00:40→21:49)
[2024-03-16 01:32] LABS: Mucous, Urine 0 SEEN /hpf (<or=2+); Squamous Epithelial Cells - UA 0 SEEN /hpf (0-5)
[2024-03-16 01:34] LABS: Color, Urine Yellow (Yellow); Glucose, Dipstick Normal (Normal); Ketone-Dipstick Negative (Negative); Leukocyte Esterase-Dipstick 500 /ul (Negative); Nitrite-Dipstick Negative (Negative); Occult Blood-Urine 150 /ul (Negative); Protein-Dipstick 30 mg/dl (Negative); Specific Gravity, Urine 1.015 (1.002-1.030); Urine Bilirubin Dipstick Negative (Negative); Urine Clarity Turbid (Clear); Urine Urobilinogen Normal (Normal)
[2024-03-16 01:41] LABS: Red Blood Cells-Urine 10-25 SEEN /hpf (0-5); White Blood Cells >100 SEEN /hpf (0-5)
[2024-03-16 01:42] LABS: Bacteria 3+ /hpf (None Seen)
[2024-03-16 01:50] LABS: Protein, Urine (Random) 36.3 mg/dL (<11.9); Protein:Creat Ratio 697 mg/g CRE (0-200); Urine Chloride 81 mmol/L (Not Establ.); Urine Sodium 78 mmol/L (Not Establ.)
[2024-03-16 03:17] LABS: Osmolality, Urine 391 mOsm/KG
[2024-03-16] MEDS: Nitroglycerin Oint 1 INCH PACKET TD (05:01)
--- NOTE | 2024-03-16 05:18 | EKG12_ITS ---
Test Reason : CP Blood Pressure : */* mmHG Vent. Rate : 75 BPM Atrial Rate : 75 BPM P-R Int : 238 ms QRS Dur : 102 ms QT Int : 372 ms P-R-T Axes : 58 -33 -5 degrees QTcB Int : 415 ms Sinus rhythm with sinus arrhythmia with 1st degree A-V block Left axis deviation Nonspecific ST abnormality Abnormal ECG When compared with ECG of 16-Mar-2024 01:19, MANUAL COMPARISON REQUIRED DATA IS UNCONFIRMED Confirmed by MAIK EVANS, ROLANDO ([id number]), mapping editor DENNIS RUBIO ([id number]) on 03/17/2024 11:33:46 AM Referred By: LORAINE Confirmed By: ROLANDO PLEIETZ MD
[2024-03-16] MEDS: Morphine 2 MG/ML Syringe IV (05:55)
--- NOTE | 2024-03-16 05:55 | US_ITS ---
STUDY: RENAL ULTRASOUND - COMPLETE REASON FOR EXAM: Male, 83 years old. Elevated BUN/creatinine TECHNIQUE: Ultrasound evaluation of the kidneys was performed with real-time and static vivas-scale imaging. COMPARISON: None. FINDINGS: RIGHT KIDNEY: Normal location of the right kidney, which is normal in size. The right kidney measures 10.9 x 5.2 x 5.3 cm. There is a normal cortex of the right kidney. The renal cortex measures 1.5 cm. There is no right renal mass or cyst. There are no right renal calculi. There is no right hydronephrosis. DISTAL RIGHT URETER: There is non-visualization of the distal right ureter. There is no demonstrated right ureterovesical junction calculus. There is a visualized right ureteral jet. LEFT KIDNEY: Normal location of the left kidney, which is normal in size. The left kidney measures 11.8 x 4.2 x 4.3 cm. There is a normal cortex of the left kidney. The renal cortex measures 1.3 cm. There is no left renal mass or cyst. There are no left renal calculi. There is no left hydronephrosis. DISTAL LEFT URETER: There is non-visualization of the distal left ureter. There is no demonstrated left ureterovesical junction calculus. There is a visualized left ureteral jet. AORTA: There is no elongation or tortuosity of the abdominal aorta. I.V.C.: The IVC is patent. BLADDER: The distended urinary bladder has a volume of 649 ml. The empty urinary bladder has a volume of less than 10 ml. There is a normal wall thickness of the distended urinary bladder. There is no demonstrated mass within the urinary bladder. There are no demonstrated bladder calculi. US/Kidney and Bladder IMPRESSION: No suspicious sonographic findings Electronically Signed: Jamey Sanchez MD at 11:34 EDT ,
--- NOTE | 2024-03-16 05:55 | ECHOCS_ITS ---
Reason For Study: Unstable angina Procedure This was a 2D Doppler, Color Flow transthoracic echocardiogram. The study was technically difficult. Exam performed portable in patient room. Left Ventricle Normal LV size. Mild concentric left ventricular hypertrophy. Left ventricular systolic function is normal. The left ventricular ejection fraction is 65 %. Stage 1 diastolic dysfunction. No regional wall motion abnormalities noted. Right Ventricle Normal RV size. Normal systolic function. Atria Normal left atrium. Normal right atrium. Mitral Valve There is mild to moderate mitral annular calcification. Aortic Valve Trisinus/trileaflet aortic valve. Moderate focal aortic valve calcification. Peak aortic valve gradient 26 mmHg. Mean aortic valve gradient 13 mmHg. Medication Diluted definity 2.0ml given slow IV push to enhance endocardial definition. MMode/2D Measurements & Calculations LVIDd: 4.3 cm IVSd: 1.3 cm LVOT diam: 2.0 cm LVIDs: 2.4 cm LVPWd: 1.4 cm FS: 43.0 % LVOT area: 3.2 cm2 Ao root diam: 3.0 cm LAV(MOD-bp): 46.5 ml LVAd ap4: 31.7 cm2 LAV(MOD-bp) Indexed: 21.4 ml/m2 LVLd ap4: 8.2 cm LAV(MOD-sp2): 49.2 ml EDV(MOD-sp4): 99.7 ml LAV(MOD-sp4): 42.7 ml EDV(sp4-el): 104.1 ml LVAs ap4: 19.2 cm2 LVLs ap4: 7.5 cm ESV(MOD-sp4): 39.5 ml ESV(sp4-el): 41.9 ml EF(MOD-sp4): 60.4 % EF(sp4-el): 59.8 % LVAd ap2: 27.0 cm2 SV(MOD-sp4): 60.2 ml SV(MOD-sp2): 48.0 ml LVLd ap2: 8.1 cm SI(MOD-sp4): 27.7 ml/m2 SI(MOD-sp2): 22.1 ml/m2 EDV(MOD-sp2): 74.1 ml EDV(sp2-el): 76.4 ml LVAs ap2: 14.9 cm2 LVLs ap2: 7.4 cm ESV(MOD-sp2): 26.1 ml ESV(sp2-el): 25.7 ml EF(MOD-sp2): 64.8 % SV(sp4-el): 62.3 ml LA A4 area: 16.2 cm2 LA dimension(2D): 2.9 cm RA A4 area: 14.6 cm2 Doppler Measurements & Calculations MV E max mark: 104.1 cm/sec Lat Peak E' Mark: 13.8 cm/sec Med Peak E' Mark: 6.6 cm/sec MV A max mark: 105.1 cm/sec E/E' lat: 7.5 E/E' med: 15.7 MV E/A: 0.99 Ao V2 max: 255.4 cm/sec LV V1 max: 110.0 cm/sec SV(LVOT): 78.3 ml Ao max P.1 mmHg LV V1 max P.8 mmHg Ao V2 mean: 165.1 cm/sec LV V1 mean P.7 mmHg Ao mean P.5 mmHg LV V1 mean: 77.6 cm/sec Ao V2 VTI: 49.9 cm LV V1 VTI: 24.6 cm AV (velocity ratio): 0.49 RENATO(I,D): 1.6 cm2 RENATO(V,D): 1.4 cm2 PA V2 max: 102.9 cm/sec PA V2 mean: 74.2 cm/sec ECHO/Echo Complete W/ Contrast Interpretation Summary Normal LV size. Left ventricular systolic function is normal. The left ventricular ejection fraction is 65 %. Moderate focal aortic valve calcification. Mild concentric left ventricular hypertrophy. Stage 1 diastolic dysfunction. Ordering Physician: Peter Lou Referring Physician: Kain Bhakta Chi Performed By: Rebeka Melton RDCS, RVT
[2024-03-16] MEDS: 0.9% Saline Lock 10 ML Syringe IV ×2 (05:56→22:42)
[2024-03-16] MEDS: Levothyroxine 25 MCG TABLET PO (05:56)
[2024-03-16 06:05] LABS: Absolute Lymphocyte Count 1.92 X10^3/uL (0.83-4.51); Absolute Neutrophil Count 4.8 X10^3/uL (2.0-7.7); Basophil# 0.03 X10^3/uL; Basophil% 0.4 % (0-1); Eosinophil# 0.25 X10^3/uL; Eosinophils% 3.3 % (0-5); Hemoglobin 8.8 g/dL (13.0-16.5); Lymphocyte # 1.92 X10^3/ul (0.83-4.51); Mean Corp Hgb Conc 32.6 g/dL (32-36); Mean Corpuscular Hgb 30.7 pg (27.0-32.0); Mean Corpuscular Volume 94.1 fL (80-94); Mean Platelet Vol. 11.2 fl (6.2-12.0); Monocyte# 0.64 X10^3/uL; Monocyte% 8.3 % (0-10); NRBC Flagged by Analyzer 0 % (0-5); Neutrophil # 4.81 X10^3/uL (2.7-7.7); Neutrophil % 62.6 % (47-70); Platelet Count 150 K/mm3 (150-450); RBC Distribution Width CV 13.2 % (11.6-14.6); RBC Distribution Width SD 45.6 fl (35.1-43.9); Red Blood Count 2.87 M/mm3 (4.6-6.2); White Blood Count 7.7 K/mm3 (4.4-11.0)
[2024-03-16 06:27] LABS: Osmolality, Serum 352 mOsm/KG (280-301)
[2024-03-16 06:47] LABS: ALB/GLOB Ratio 0.8 RATIO (0.9-2.4); AST(SGOT) 18 U/L (15-37); Alanine Aminotransfer ALT/SGPT 14 U/L (16-61); Albumin, Serum 3.4 g/dL (3.2-5.0); Alkaline Phosphatase 71 U/L (45-117); Anion Gap 5 (5-15); BUN 137 mg/dL (7-18); BUN/Creat Ratio 30.9 RATIO (10-20); Calcium,Total 8.7 mg/dL (8.5-10.1); Chloride 106 mmol/L (98-107); Cholesterol 75 mg/dL (200); Creatinine, Serum 4.43 mg/dL (0.70-1.30); EST Glomerular Filtration Rate 14 mL/min (>60); Est Glom Filt Rate - Afr Amer 16 mL/min (>60); Estimated Creatinine Clearance 15.02 ml/min; Glucose 211 mg/dL (74-106); High Density Lipoprotein 30 mg/dL; Potassium 4.3 mmol/L (3.5-5.1); Protein, Total 7.4 g/dL (6.4-8.2); Sodium Level 139 mmol/L (136-145); T4 Free Direct 0.75 ng/dL (0.76-1.46); Triglycerides 99 mg/dL; Very Low Density Lipoprotein 20 mg/dL (5-40)
--- NOTE | 2024-03-16 07:23 | CPS ---
Attempted to do SMI and Pep but pt was unavailable at this time. Will check back later.
--- NOTE | 2024-03-16 08:07 | PCM.CONS.C ---
Assessment & Plan Assessment/Plan (1) Non-ST elevation CT (NSTEMI): PLAN: Patient presents with chest discomfort and is noted to have a non-ST elevation myocardial infarction. He however has significant renal dysfunction and ideally he does need a cardiac catheterization. However this may need to significant compromise of his renal function to the extent that he may need dialysis. I did discuss this with him but I am not sure he understands the full ramifications. In the meantime he will remain on beta-vahe Intravenous heparin Will obtain echocardiogram to assess ventricular function Oral nitrates or intravenous nitrates Will appreciate nephrology input OLIVERIO He may need to go to the Patient Relations Specialist sooner if he develops more chest pain. Addendum 1030. Patient was taken to the cardiac catheterization lab and it demonstrated the following: Mildly calcified left anterior descending artery with 60% proximal stenosis and mild diffuse disease. First obtuse marginal branch with mild disease. Ostial circumflex with 95% high-grade stenosis. Codominant right coronary artery with a totally occluded proximal zone with [id number] collaterals. Preserved left ventricular systolic function. The patient is noted to be high risk and may be considered for coronary bypass surgery but there is a possibility to consider him for high risk PCI of the circumflex artery which may be the culprit lesion for his current chest pain. The above was discussed with interventional list in an attempt to be made to PCI this vessel. (2) Hypertension: PLAN: Blood pressure appears to be under fair control. The plan will be to continue the current medical therapy. I would recommend that we discontinue the valsartan on account of the fact that he has significant renal dysfunction and substituted calcium channel vahe and a beta-vahe HPI Consult Data Date of Consult: 03/16/24 HPI Narrative HPI Narrative: JUNIOR MACIAS, is a 83 M who presents with chest discomfort to the emergency room described as a heaviness radiating to both shoulders with minimal activity and some at rest. He presented to the emergency room with the same complaints, EKG did not demonstrate any significant abnormality but his troponin was noted to be elevated. He has a history of anemia as well as chronic renal insufficiency which has been progressively getting worse. He has not seen a backfiller or primary care physician in a while. He apparently has been having intermittent chest discomfort over the night. He has had no dizziness or diaphoresis no near-syncope or syncope. Cardiology was notified about him in the night and saw him this morning. 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 Vitamin D deficiency SOB (shortness of breath) GERD (gastroesophageal reflux disease) Heart failure with preserved ejection fraction Diabetic polyneuropathy Hypothyroidism CKD (chronic kidney disease), stage IV Atherosclerotic cardiovascular disease COPD (chronic obstructive pulmonary disease) Chronic hypoxemic respiratory failure Pneumonia due to COVID-19 virus Hypertension PVCs (premature ventricular contractions) Anemia Obesity (BMI 30.0-34.9) Diabetes mellitus, type II HLD (hyperlipidemia) Chest pain Home Medications ?Medication ?Instructions ?Recorded ?Last Taken ?Type famotidine 40 mg tablet 40 mg PO DAILY GERD 07/13/18 Unknown History pen needles, lancets, test strips See Rx Instructions .Route 04/23/22 Unknown Rx diabetic .COMPLEX #100 ea glimepiride 4 mg tablet 4 mg PO DAILY DIABETES 06/23/22 Unknown History melatonin 10 mg tablet 10 mg PO QHS SLEEP 06/23/22 Unknown History levothyroxine 25 mcg tablet 25 mcg PO DAILY THYROID 07/09/22 Unknown History ascorbate calcium (vitamin C) 500 500 mg PO DAILY SUPPLEMENT 03/09/24 Unknown History mg tablet carvedilol 6.25 mg tablet (Coreg) 3.125 mg PO BID BLOOD PRESSURE 03/09/24 Unknown History furosemide 40 mg tablet 40 mg PO BID EDEMA 03/09/24 Unknown History gabapentin 300 mg capsule 300 mg PO BID NEUROPATHY 03/09/24 Unknown History polysaccharide iron complex 150 mg 150 mg PO DAILY SUPPLEMENT 03/09/24 Unknown History iron capsule (Ferrex) insulin degludec 100 unit/mL (3 20 unit subcut BID DIABETES 03/15/24 Unknown History mL) subcutaneous pen (Tresiba FlexTouch U-100 insulin) valsartan 320 1 tab PO DAILY BLOOD PRESSURE 03/15/24 Unknown History mg-hydrochlorothiazide 12.5 mg tablet Allergy/AdvReac Type Severity Reaction Status Date / Time No Known Allergies Allergy Verified 03/15/24 15:09 Family History Brother Diabetes Mother Diabetes Sister Diabetes Father Heart disease Surgical History History of appendectomy Social History Smoking Status: Former smoker alcohol intake: never ROS Constitutional Constitutional: Denies fever(s) or weight loss Eyes Eyes: Reports systems reviewed and no addt'l complaints, except as documented ENT HEENT: Reports systems reviewed and no addt'l complaints, except as documented Cardiovascular Cardiovascular: Reports chest pain at rest, chest pain with activity, dyspnea at rest and dyspnea on exertion; Denies edema, palpitations or paroxysmal nocturnal dyspnea Respiratory/Chest Respiratory/Chest: Denies dyspnea on exertion, productive cough, shortness of breath at rest or shortness of breath with exertion Gastrointestinal Gastrointestinal: Denies change in bowel habits, nausea, vomiting or weight changes Genitourinary Genitourinary: Denies difficulty urinating Musculoskeletal Musculoskeletal: Denies joint stiffness or muscle weakness Integumentary Integumentary: Denies lesions Neurologic Neurologic: Denies dizziness or syncope Psychiatric Psychiatric: Denies anxiety Endocrine Endocrinology: Denies excessive sweating or fatigue Hematologic/Lymphatic Hematologic/Lymphatic: Denies anemia Allergic/Immunologic Allergic/Immunologic: Denies seasonal rhinorrhea Physical Exam Const alert, oriented x3 and no apparent distress General Appearance: cooperative HEENT hearing grossly normal bilaterally Head and Scalp: atraumatic Eyes EOMs intact bilaterally Neck General: normal visual inspection Chest inspection of chest normal and palpation of chest normal Resp normal respiratory effort Auscultation: clear to auscultation bilaterally Cardio regular rate, regular rhythm, S1 normal heart sound and S2 normal heart sound Jugular Venous Distention: JVD GI normal to inspection, nondistended, normoactive bowel sounds Extremity normal capillary refill and no pedal edema Peripheral Pulses: Yes pulses 2+ throughout and femoral pulses present Skin no rashes or lesions noted Neuro oriented x3 and CN's II-XII intact bilaterally Psych Appearance: grossly normal and appropriate Risk Stratification Risk Stratification Applicable: Yes Age >/= 65: Yes >/= 3 CAD Risk Factors (HTN, HLD, DM, family hx of CAD, or current smoker): Yes Aspirin Use in the Past 7 Days: Yes Severe Angina (>/= episodes in 24 hours): Yes EKG ST Changes >/= 0.5mm: No Positive Cardiac Marker: Yes PATRICIA Risk Stratification Score: 5 PATRICIA % Risk: 25% Risk Objective Data Vital Signs: Vital Signs Temp Pulse Resp BP Pulse Ox O2 Del Method O2 Flow Rate 98 F 82 18 168/78 H 99 Nasal Cannula 2 03/16/24 05:16 03/16/24 05:16 03/16/24 05:16 03/16/24 05:16 03/16/24 05:16 03/16/24 05:16 03/16/24 05:16 Oxygen Flow Rate (L/min) 2 Oxygen Delivery Method Nasal Cannula Weight: 214 lb 4.629 oz Body Mass Index (BMI) 29.9 Intake & Output: Intake and Output for Last 24 Hours 03/14/24 03/15/24 03/16/24 23:59 23:59 23:59 Intake Total 748.17 / 748.17 Output Total 700 / 700 Balance 48.17 / 48.17 Lab / Micro Data 03/16/24 05:37 03/16/24 05:37 Labs: Laboratory Results - last 24 hr 03/15/24 15:46: WBC 7.3, RBC 2.85 L, Hgb 8.5 L, Hct 26.9 L, MCV 94.4 H, MCH 29.8, MCHC 31.6 L, RDW Std Deviation 46.4 H, RDW Coeff of Elmer 13.4, Plt Count 152, MPV 10.9, Immature Gran % (Auto) 0.300, Neut % (Auto) 67.7, Lymph % (Auto) 21.2, [place] % (Auto) 7.6, Eos % (Auto) 2.9, Baso % (Auto) 0.3, Absolute Neuts (auto) 4.9, Absolute Lymphs (auto) 1.54, Nucleated RBC % 0, Retic Count 1.59 H, Immature Retic Fraction 4.20, Retic Hgb Equivalent 31.4, Sodium 139, Potassium 4.7, Chloride 104, Carbon Dioxide 27.0, Anion Gap 8, BUN 148 H*, Creatinine 5.22 H, Estim Creat Clear Calc 11.98, Est GFR (MDRD) Af Amer 14 L, Est GFR (MDRD) Non-Af 11 L, BUN/Creatinine Ratio 28.4 H, Glucose 161 H, Calcium 8.8, Troponin I High Sens 412 H*, B-Natriuretic Peptide 13.8 03/15/24 17:44: Phosphorus 5.2 H, Magnesium 2.2, Iron 49 L, TIBC 226 L, Iron Saturation 21.7, Ferritin 111, Troponin I High Sens 342 H* 03/15/24 20:24: PT 14.7, INR 1.2, APTT 32.8 03/15/24 23:12: Troponin I High Sens 383 H* 03/16/24 00:06: POC Glucose 131 H 03/16/24 01:25: Urine Color Yellow, Urine Clarity Turbid, Urine pH 6.0, Ur Specific [place] 1.015, Urine Protein 30 H, Urine Glucose (UA) Normal, Urine Ketones Negative, Urine Occult Blood 150 H, Urine Nitrite Negative, Urine Bilirubin Negative, Urine Urobilinogen Normal, Ur Leukocyte Esterase 500 H, Urine RBC 10-25 SEEN, Urine WBC >100 SEEN, Ur Squamous Epith Cells 0 SEEN, Urine Bacteria 3+, Urine Mucus 0 SEEN, Urine Osmolality 391, U Random Total Protein 36.3 H, Ur Random Sodium 78, Urine Creatinine 52.10, Protein/Creatinin Ratio 697 H, Urine Potassium 26.0, Urine Chloride 81 03/16/24 05:37: WBC 7.7, RBC 2.87 L, Hgb 8.8 L, Hct 27.0 L, MCV 94.1 H, MCH 30.7, MCHC 32.6, RDW Std Deviation 45.6 H, RDW Coeff of [place]mer 13.2, Plt Count 150, MPV 11.2, Immature Gran % (Auto) 0.400, Neut % (Auto) 62.6, Lymph % (Auto) 25.0, [place] % (Auto) 8.3, Eos % (Auto) 3.3, Baso % (Auto) 0.4, Absolute Neuts (auto) 4.8, Absolute Lymphs (auto) 1.92, Nucleated RBC % 0, APTT 212.0 H*, Sodium 139, Potassium 4.3, Chloride 106, Carbon Dioxide 28.0, Anion Gap 5, BUN 137 H*, Creatinine 4.43 H, Estim Creat Clear Calc 15.02, Est GFR (MDRD) Af Amer 16 L, Est GFR (MDRD) Non-Af 14 L, BUN/Creatinine Ratio 30.9 H, Glucose 211 H, Serum Osmolality 352 H, Calcium 8.7, Total Bilirubin 0.40, AST 18, ALT 14 L, Alkaline Phosphatase 71, Total Protein 7.4, Albumin 3.4, Globulin 4.0, Albumin/Globulin Ratio 0.8 L, Triglycerides 99, Cholesterol 75, LDL Cholesterol 25, VLDL Cholesterol 20, HDL Cholesterol 30 L, TSH 5.260 H, Free T4 0.75 L Micro: Microbiology 03/15/24 17:05 Stool Stool Occult Blood (GREG) - Final Cardiology Labs/Tests 03/15/24 15:46: WBC 7.3, RBC 2.85 L, Hgb 8.5 L, Hct 26.9 L, MCV 94.4 H, MCH 29.8, MCHC 31.6 L, Plt Count 152, MPV 10.9, Immature Gran % (Auto) 0.300, Neut % (Auto) 67.7, Lymph % (Auto) 21.2, [place] % (Auto) 7.6, Eos % (Auto) 2.9, Baso % (Auto) 0.3, Absolute Neuts (auto) 4.9, Nucleated RBC % 0, Sodium 139, Potassium 4.7, Chloride 104, Carbon Dioxide 27.0, Anion Gap 8, BUN 148 H*, Creatinine 5.22 H, Est GFR (MDRD) Af Amer 14 L, Est GFR (MDRD) Non-Af 11 L, BUN/Creatinine Ratio 28.4 H, Glucose 161 H, Calcium 8.8, B-Natriuretic Peptide 13.8 03/15/24 17:44: Phosphorus 5.2 H, Magnesium 2.2, Iron 49 L, TIBC 226 L, Iron Saturation 21.7, Ferritin 111 03/15/24 20:24: PT 14.7, INR 1.2, APTT 32.8 03/16/24 01:25: Urine Color Yellow, Urine Clarity Turbid, Urine pH 6.0, Ur Specific [place] 1.015, Urine Protein 30 H, Urine Glucose (UA) Normal, Urine Ketones Negative, Urine Occult Blood 150 H, Urine Nitrite Negative, Urine Bilirubin Negative, Urine Urobilinogen Normal, Ur Leukocyte Esterase 500 H, Urine RBC 10-25 SEEN, Urine WBC >100 SEEN 03/16/24 05:37: WBC 7.7, RBC 2.87 L, Hgb 8.8 L, Hct 27.0 L, MCV 94.1 H, MCH 30.7, MCHC 32.6, Plt Count 150, MPV 11.2, Immature Gran % (Auto) 0.400, Neut % (Auto) 62.6, Lymph % (Auto) 25.0, [place] % (Auto) 8.3, Eos % (Auto) 3.3, Baso % (Auto) 0.4, Absolute Neuts (auto) 4.8, Nucleated RBC % 0, APTT 212.0 H*, Sodium 139, Potassium 4.3, Chloride 106, Carbon Dioxide 28.0, Anion Gap 5, BUN 137 H*, Creatinine 4.43 H, Est GFR (MDRD) Af Amer 16 L, Est GFR (MDRD) Non-Af 14 L, BUN/Creatinine Ratio 30.9 H, Glucose 211 H, Serum Osmolality 352 H, Calcium 8.7, Total Bilirubin 0.40, Triglycerides 99, Cholesterol 75, LDL Cholesterol 25, VLDL Cholesterol 20, HDL Cholesterol 30 L Rhythm: EKG: Normal sinus rhythm with no acute changes ECHO: Stress Test: Cardiac Cath: PCI: CT Surgery: Holter monitor: EPS: PPM: CXR: Chest CT Scan: Radiography Diagnostic Testing: Radiology Impression Chest X-Ray 03/15/24 16:10 IMPRESSION: Chronic interstitial thickening most pronounced in the lower lobes with improved aeration since prior exam. No new consolidative densities or other significant change Electronically Signed: Yan Staley MD at 16:43 EDT Reading Location ID and State: [facility] / [place] Tel [phone], Service support , Hip/Pelvis X-Ray 03/15/24 19:30 IMPRESSION: Normal x-ray examination of the pelvis and hip. Electronically Signed: Yan Staley MD at 20:17 EDT ,
--- NOTE | 2024-03-16 09:00 | CASEMGMT ---
Insurance review for hospitals In-network with [facility] insurance if transfer is recommended is as follows: [facility], [place], [facility], [place], [facility], [facility], [facility], [facility], [place], [facility]), and . Zina Joaquin, Discharge Planning Asst.
[2024-03-16] MEDS: Nitroglycerin (INPATIENT USE) 0.4 MG TAB.SUBL SL (09:11)
[2024-03-16] MEDS: Nitroglycerin Infusion 250 ML 3 MG CONT INF (09:20)
[2024-03-16] MEDS: Sodium Ferric Gluconat/Sucrose 250 MG in 0.9% Normal Saline (250mL Bag) 250 ML 135 MG IV (09:21)
--- NOTE | 2024-03-16 11:30 | EKG12_ITS ---
Test Reason : CP Blood Pressure : */* mmHG Vent. Rate : 64 BPM Atrial Rate : 64 BPM P-R Int : 272 ms QRS Dur : 98 ms QT Int : 390 ms P-R-T Axes : 40 -38 -11 degrees QTcB Int : 402 ms Sinus rhythm with 1st degree A-V block Left axis deviation Minimal voltage criteria for LVH, may be normal variant ( R in aVL ) Nonspecific ST abnormality Abnormal ECG When compared with ECG of 15-Mar-2024 22:23, MANUAL COMPARISON REQUIRED DATA IS UNCONFIRMED Confirmed by MAIK EVANS, ROLANDO ([id number]), greeting card editor DENNIS RUBIO ([id number]) on 03/17/2024 11:34:33 AM Referred By: LORAINE Confirmed By: ROLANDO PLEITEZ MD
--- NOTE | 2024-03-16 12:04 | CL.I_ITS ---
Patient Name: JUNIOR COLLEEN Study Date: 03/16/2024 Performing: Chirag Shine MD Ht: 71 inches 180.34 cm : 1940 Wt: 214.6 lbs 97.2 kg Age: 83 Gender: male BSA: 2.17 PROCEDURE(S) PERFORMED IC12-(83707/C9600)BECK W/WO PTCA, SINGLE CORONARY ARTERY CLINICAL PROFILE AND CO-MORBIDITIES Indications: ACS <= 24 hrs Heart Failure: None CONCLUSIONS Successful BECK to Proximal circumflex RECOMMENDATIONS DESCRIPTION OF PROCEDURE The patient arrived to the procedure lab. The risks and benefits of the procedure as well as a full description of our services here and current unavailability of surgical backup were fully explained to the patient and/or their significant other prior to the catheterization. The Timeout was completed, verifying the correct patient and procedure. The patient's procedural site was prepped and draped in the usual fashion. Local anesthetic was given subcutaneously to right radial region with Lidocaine 2% Using a modified Seldinger technique,arterial access was obtained via the right radial artery, a 6Fr sheath was inserted. Right Coronary Artery selective angiography was then performed in multiple views using a 5 Fr. 4.0 [place] catheter. Left Coronary Artery selective angiography was performed in multiple views using a 5 Fr. 4.0 [place] catheter.The images were reviewed and options discussed. A decision was then made to proceed with an Intervention, IVUS or other adjunct procedure. XB 3.0 Guide catheter was inserted and engaged into the LCA. BMW Guide wire was advanced to the Circumflex. 2.5 x 8 Emerge Balloon catheter was inserted. Balloon catheter was advanced across lesion in the circumflex, proximal. PTCA balloon inflated at 6 atms for 12 secs. PTCA balloon inflated at 12 atms for 25 secs. PTCA balloon inflated at 6 atms for 13 secs. 3.0 x 12 Emerge Balloon catheter was inserted. Balloon catheter was advanced across lesion in the circumflex, proximal. PTCA balloon inflated at 14 atms for 60 secs. 3.5 x 12 [place] Drug Eluting stent was inserted. Drug Eluting stent was advanced across the lesion in the circumflex, proximal. Angiogram performed post stent deployment. Runthrough Guide wire was advanced to the 1st OM. 1.5 x 8 Emerge Balloon catheter was inserted. Balloon catheter was advanced across lesion in the circumflex, proximal. PTCA balloon inflated at 14 atms for 19 secs. nc emerge 3.5 x 12 Balloon catheter was inserted. Balloon catheter was advanced across lesion in the circumflex, proximal. post stent PTCA balloon inflated at 12 atms for 7 secs. Angiogram performed post balloon dilatation. Angiogram performed post balloon dilatation. The arterial sheath was pulled and a TR Band was applied for hemostasis. 13cc air INTERVENTION INFORMATION LESION SITE: Circumflex (Proximal) Lesion Complexity: High/C, chronic total occlusion: No, lesion at bifurcation: Yes, thrombus present: No, lesion length: 11 mm, culprit lesion: Yes, Previously treated lesion: No Pre Stenosis: 95 % Pre intervention PATRICIA flow: 3 PROCEDURE: Drug Eluting Stent with pre and post dilatation The OM1 vessel that was jailed by the stent to the circumflex was pinched after stent deployment. The stent struts were crossed with a run-through wire and PTCA of the ostial OM1 was performed with a 1.5 mm balloon inflated to 14 isabel. Post Stenosis: 0 % Post intervention PATRICIA flow: 3 Lesion Devices: Cordis 6 Fr XB3.0 100cm Guide Catheter [place] .014 190cm BMW Sharon Straight Morgan Sci EMERGE MR 2.50x08 BALLOON Morgan Sci EMERGE MR 3.00x12 BALLOON Medtronic 3.5 x 12 ASHANTI FRONTIER BECK Terumo .014 180cm Runthrough Extra Floppy straight Morgan Sci EMERGE MR 1.50x08 BALLOON Morgan Sci NC EMERGE MR 3.50x12 BALLOON COMPLICATIONS No Complications PROCEDURE MEDICATIONS Fentanyl 50 mcg IV Versed 1 mg IV Oxygen: 4 L/min via nasal cannula Brilinta 180 mg PO @ 03/16/2024 11:14:29 Heparin given IA 03/16/2024 10:06:55 Heparin 5000 unit(s) IV 03/16/2024 10:42:50 Verapamil 2.5mg, Ntg 100mcgs, 3000 units of Heparin given IA 03/16/2024 10:06:55 SUMMARY OF HEMODYNAMIC DATA Time AIR REST ECG 09:55:37 Art 89/45 (57) 10:13:08 AO 82/46 (63) SA 10:16:37 AO 83/39 (55) 10:36:21 AO 92/49 (61) 10:40:42 AO 111/60 (81) 10:44:37 AO 120/50 (76) 10:48:48 AO 147/64 (95) 10:53:40 AIR REST 10:53:47 Signed By Chirag Shine MD On 03/16/2024 12:03:44 Chirag Shine MD
--- NOTE | 2024-03-16 12:32 | CL.D_ITS ---
Patient Name: JUNIOR COLLEEN Study Date: 03/16/2024 Performing: Riley Childers MD Ht: 71 inches 180.34 cm : 1940 Wt: 214.29 lbs 97.2 kg Age: 83 Gender: male BSA: 2.17 PROCEDURE(S) PERFORMED DC02-(27707)LHC/COR IC12-(30646/C9600)BECK W/WO PTCA, SINGLE CORONARY ARTERY CLINICAL PROFILE AND INDICATIONS Indications: ACS <= 24 hrs, ACS <= 24 hrs Heart Failure: None Stress/Imaging Stress/Image Study Performed: No CAD Presentations: Unstable angina. CONCLUSIONS Totally occluded right coronary artery high-grade left circumflex artery stenosis moderate disease of the left anterior descending artery [id number] collaterals and chronic renal insufficiency RECOMMENDATIONS Urgent PCI to the left circumflex artery DESCRIPTION OF PROCEDURE The patient arrived to the procedure lab. The risks and benefits of the procedure as well as a full description of our services here and current unavailability of surgical backup were fully explained to the patient and/or their significant other prior to the catheterization. The Timeout was completed, verifying the correct patient and procedure. The patient's procedural site was prepped and draped in the usual fashion. Local anesthetic was given subcutaneously to right radial region with Lidocaine 2%. Using a modified Seldinger technique, arterial access was obtained via the right radial artery, a 6Fr sheath was inserted. Right Coronary Artery selective angiography was then performed in multiple views using a 5 Fr. 4.0 [place] catheter. Left Coronary Artery selective angiography was performed in multiple views using a 5 Fr. 4.0 [place] catheter.The arterial sheath was pulled and a TR Band was applied for hemostasis. 13cc air CORONARY ANGIOGRAPHY DOMINANCE: Co- Dominant LEFT HEART ASSESSMENT Left Ventricular Ejection Fraction: by Echo 65 % Normal LV wall motion. Normal LV wall motion LEFT MAIN: Mild calcification, Mild luminal irregularities less than 30% LEFT ANTERIOR DESCENDING ARTERY: Moderately diseased vessel with proximal 60% stenosis and mid 50% stenosis and mild diffuse distal disease and [id number] collaterals CIRCUMFLEX ARTERY: Codominant vessel with first obtuse marginal branch being patent with mild disease and then after that a high-grade 95% stenosis noted in the AV groove branch going towards the second large obtuse marginal branch. RIGHT CORONARY ARTERY: PROX RCA: is occluded COLLATERAL FLOW: Collateral flow from Left to Right COMPLICATIONS No Complications PROCEDURE MEDICATIONS Fentanyl 50 mcg IV Versed 1 mg IV Oxygen: 4 L/min via nasal cannula Brilinta 180 mg PO @ 03/16/2024 11:14:29 Heparin given IA 03/16/2024 10:06:55 Heparin 5000 unit(s) IV 03/16/2024 10:42:50 Verapamil 2.5mg, Ntg 100mcgs, 3000 units of Heparin given IA 03/16/2024 10:06:55 SUMMARY OF HEMODYNAMIC DATA Time AIR REST ECG 09:55:37 Art 89/45 (57) 10:13:08 AO 82/46 (63) SA 10:16:37 AO 83/39 (55) 10:36:21 AO 92/49 (61) 10:40:42 AO 111/60 (81) 10:44:37 AO 120/50 (76) 10:48:48 AO 147/64 (95) 10:53:40 AIR REST 10:53:47 Signed By Riley Childers MD On 03/16/2024 12:31:29 Riley Childers MD
--- NOTE | 2024-03-16 13:13 | CHAPLAIN ---
Type of Pastoral Visit _x__ Initial Visit ___ Follow-up Visit ___ On-call Visit ___ General Patient Visit ___ Spiritual Assessment ___ Family Conference ___ Bereavement ___ Rapid Response ___ Code Blue ___ Other (describe below) Pastoral Care Referral From _x__ Patient ___ Family ___ Nurse ___ Physician ___ Mud Trucker ___ Toll Repairer Central Office ___ Other (describe below) Sacrament/Intervention _x__ Active listening ___ Anointing ___ Episcopal ___ Bereavement ___ Communion _x__ Mary exploration ___ ___ Life review _x__ Prayer ___ Reconciliation ___ Sacrament of Sick _x__ Supportive presence ___ Wedding ___ Other (describe below) Pastoral Comments patient is eager to have this cnc router operator sit with him and to pray; pt states I need prayers and then continues with details on his recent health scare and the resulting heart cath and stent placement earlier this morning; pt is descriptive of his experience and praise for certain nurses that were the answers to prayer that I asked for; pt talks about his daughter and his mary in God as his greatest support; pt welcomes presence and asks for a prayer; daughter and RN come into the room and this cnc router operator engages in conversation and offer of support to daughter as well
--- NOTE | 2024-03-16 13:32 | PN_ITS ---
Subjective Subjective Patient seen and examined. He had no complaints. He was admitted with complaint of chest pain. He was still having chest pain this morning while he was having cardiac cath so he went for emergent cardiac cath which showed a totally occluded right coronary artery with high grade left circumflex arteyr stenosis and moderate disease of the LAD. he had urgent PCI to the left circumflex artery. Patient was seen after the cardiac cath. He said he felt much better and pain was much more improved. He denied any palpitations, dizziness, nausea, vomiting or any other symptoms. Review of systems is otherwise negative. Objective Data Objective Data Vital Signs: Vital Signs Temp Pulse Resp BP Pulse Ox O2 Del Method O2 Flow Rate 97.6 F L 84 16 97/82 H 100 Nasal Cannula 3 03/16/24 12:00 03/16/24 13:16 03/16/24 12:30 03/16/24 13:16 03/16/24 12:30 03/16/24 12:30 03/16/24 12:30 Oxygen Flow Rate (L/min) 3 Oxygen Delivery Method Nasal Cannula Weight: 214 lb 4.629 oz Body Mass Index (BMI) 29.9 Intake & Output: Intake and Output for Last 24 Hours 03/14/24 03/15/24 03/16/24 23:59 23:59 23:59 Intake Total 1926.67 / 1926.67 Output Total 700 / 700 Balance 1226.67 / 1226.67 Lab / Micro Data 03/16/24 05:37 03/16/24 05:37 Labs: Laboratory Results - last 24 hr 03/15/24 15:46: WBC 7.3, RBC 2.85 L, Hgb 8.5 L, Hct 26.9 L, MCV 94.4 H, MCH 29.8, MCHC 31.6 L, RDW Std Deviation 46.4 H, RDW Coeff of Elmer 13.4, Plt Count 152, MPV 10.9, Immature Gran % (Auto) 0.300, Neut % (Auto) 67.7, Lymph % (Auto) 21.2, [place] % (Auto) 7.6, Eos % (Auto) 2.9, Baso % (Auto) 0.3, Absolute Neuts (auto) 4.9, Absolute Lymphs (auto) 1.54, Nucleated RBC % 0, Retic Count 1.59 H, Immature Retic Fraction 4.20, Retic Hgb Equivalent 31.4, Sodium 139, Potassium 4.7, Chloride 104, Carbon Dioxide 27.0, Anion Gap 8, BUN 148 H*, Creatinine 5.22 H, Estim Creat Clear Calc 11.98, Est GFR (MDRD) Af Amer 14 L, Est GFR (MDRD) Non-Af 11 L, BUN/Creatinine Ratio 28.4 H, Glucose 161 H, Calcium 8.8, Troponin I High Sens 412 H*, B-Natriuretic Peptide 13.8 03/15/24 17:44: Phosphorus 5.2 H, Magnesium 2.2, Iron 49 L, TIBC 226 L, Iron Saturation 21.7, Ferritin 111, Troponin I High Sens 342 H* 03/15/24 20:24: PT 14.7, INR 1.2, APTT 32.8 03/15/24 23:12: Troponin I High Sens 383 H* 03/16/24 00:06: POC Glucose 131 H 03/16/24 01:25: Urine Color Yellow, Urine Clarity Turbid, Urine pH 6.0, Ur Specific [place] 1.015, Urine Protein 30 H, Urine Glucose (UA) Normal, Urine Ketones Negative, Urine Occult Blood 150 H, Urine Nitrite Negative, Urine Bilirubin Negative, Urine Urobilinogen Normal, Ur Leukocyte Esterase 500 H, Urine RBC 10-25 SEEN, Urine WBC >100 SEEN, Ur Squamous Epith Cells 0 SEEN, Urine Bacteria 3+, Urine Mucus 0 SEEN, Urine Osmolality 391, U Random Total Protein 36.3 H, Ur Random Sodium 78, Urine Creatinine 52.10, Protein/Creatinin Ratio 697 H, Urine Potassium 26.0, Urine Chloride 81 03/16/24 05:37: WBC 7.7, RBC 2.87 L, Hgb 8.8 L, Hct 27.0 L, MCV 94.1 H, MCH 30.7, MCHC 32.6, RDW Std Deviation 45.6 H, RDW Coeff of Elmer 13.2, Plt Count 150, MPV 11.2, Immature Gran % (Auto) 0.400, Neut % (Auto) 62.6, Lymph % (Auto) 25.0, [place] % (Auto) 8.3, Eos % (Auto) 3.3, Baso % (Auto) 0.4, Absolute Neuts (auto) 4.8, Absolute Lymphs (auto) 1.92, Nucleated RBC % 0, APTT 212.0 H*, Sodium 139, Potassium 4.3, Chloride 106, Carbon Dioxide 28.0, Anion Gap 5, BUN 137 H*, C reatinine 4.43 H, Estim Creat Clear Calc 15.02, Est GFR (MDRD) Af Amer 16 L, Est GFR (MDRD) Non-Af 14 L, BUN/Creatinine Ratio 30.9 H, Glucose 211 H, Serum Osmolality 352 H, Calcium 8.7, Total Bilirubin 0.40, AST 18, ALT 14 L, Alkaline Phosphatase 71, Total Protein 7.4, Albumin 3.4, Globulin 4.0, Albumin/Globulin Ratio 0.8 L, Triglycerides 99, Cholesterol 75, LDL Cholesterol 25, VLDL Cholesterol 20, HDL Cholesterol 30 L, TSH 5.260 H, Free T4 0.75 L Micro: Microbiology 03/15/24 17:05 Stool Stool Occult Blood (GREG) - Final Radiography Diagnostic Testing: Radiology Impression Chest X-Ray 03/15/24 16:10 IMPRESSION: Chronic interstitial thickening most pronounced in the lower lobes with improved aeration since prior exam. No new consolidative densities or other significant change Electronically Signed: Yan Staley MD at 16:43 EDT Reading Location ID and State: [facility] / [place] Tel [phone], Service support , Hip/Pelvis X-Ray 03/15/24 19:30 IMPRESSION: Normal x-ray examination of the pelvis and hip. Electronically Signed: Yan Staley MD at 20:17 EDT , Echocardiogram 03/16/24 05:55 Interpretation Summary Normal LV size. Left ventricular systolic function is normal. The left ventricular ejection fraction is 65 %. Moderate focal aortic valve calcification. Mild concentric left ventricular hypertrophy. Stage 1 diastolic dysfunction. Ordering Physician: Peter Lou Referring Physician: Kain Bhakta Chi Performed By: Rebeka Melton, DAYNA, RVT Renal Ultrasound 03/16/24 05:55 IMPRESSION: No suspicious sonographic findings Electronically Signed: Jamey Sanchez MD at 11:34 EDT , Physical Exam Const alert, oriented x3 and no apparent distress General Appearance: cooperative HEENT normocephalic, head/scalp atraumatic and moist oral mucous membranes Eyes PERRL and EOMs intact bilaterally Neck no lymphadenopathy, supple and no JVD Lymph Lymphatic: no lymphadenopathy noted and no lymphedema noted Resp Resp Narrative: mildly diminished breath sounds bibasally, no wheezes or crackles. On 3L of oxygen by nasal canula Cardio regular rate, regular rhythm, S1 normal heart sound, S2 normal heart sound and no murmurs GI normal to inspection, nondistended, normoactive bowel sounds, soft to palpation, non-tender and non-distended Extremity normal capillary refill, no clubbing, cyanosis or edema and no calf tenderness General Extremity: no tenderness to palpation of joints or extremities Skin General Skin Exam: no breakdown Neuro CN's II-XII intact bilaterally, no focal motor deficits and no sensory deficits noted Coordination / Balance: [id number] test normal Motor Exam: strength 5/5 throughout and general weakness Psych thought process normal, cooperative and affect normal Appearance: appropriate Assessment & Plan Assessment/Plan (1) KALYN (acute kidney injury): (2) Non-ST elevation MT (NSTEMI): PLAN: Plan #Nonstemi * patient was admitted with a complaint of chest pain. Chest pain was persistent even when having an echo * he was sent emergently to the veterinary laboratory technician where cardiac cath showed totally occluded RCA with high-grade left circumflex artery stenosis and moderate disease of the left anterior descending artery with left to right collaterals. * He had urgent PCI to the left circumflex artery * On aspirin and Brilinta as well as high intensity statin * * #Hypotension * BP is running low after cardiac cath, with BP down in the 90s systolic. * On Coreg 6.25mg bid. If BP does not improve, will hold coreg. * #Hypothyroidism: on synthroid #Type 2 diabetes mellitus: on lantus 15 units bid. ISS. Accuchecks ACHS #UTI: urinalysis showed 3+ bacteria. on IV ceftriaxone. Urine cultures pending. #KALYN on CKD III * Cr is 4.45. * Cr was 5.22 on admission, with baseline being ~3. * Nephrology consulted. * He also received dye during the cath so that may worsen kidney function. * await nephrology evaluation * hold any nephrotoxic meds. * renal USG today showed no suspicous findings. #HFpEF: hold lasix due to worsening of kidney function. #Hypertension: hold valsartan and HCTZ due to KALYN on BILL #Hyperlipidemia: on statin #GERD: on PPI #Anemia: Hb is 8.8. This is chronic. baseline Hb is 9-10. Will monitor. DVT prophylaxis; SCDs. Charges/Coding Visit Charges Inpatient E&M: 71612 Subs Hosp L3
[2024-03-16] MEDS: 0.9% Normal Saline (1000mL) 1,000 ML 75 ML IV (13:51)
--- NOTE | 2024-03-16 14:20 | CASEMGMT ---
RN CM Face to Face with patient for initial transition planning/care coordination assessment. RN CM introduced self and role at [facility]. Patient lying in bed, alert and oriented. Patient willing to participate in assessment and is able to answer all questions appropriately. Care providers, pharmacy, and demographics verified. Strata:2 PCP: Yony Specialists: none Preferred Pharmacy: [facility] Insurance: [employer] [facility] Prescription Benefit: yes Living Will/HPOA: yes, daughter Lashell Key LNOK: daughter Living Arrangements: Patient lives alone in a first floor apartment with no steps to enter. Patient is independent at home. Transportation: self, daughter DME/HHC: Patient has shower chair, raised toilet, cane, grab bars, pulse ox, and home oxygen through [employer] with portability at 3lpm. No previous HHC or SNF. Patient has had CCN in the past Patient wishes to discharge home, denies need for home health at this time. Patient states he has no further needs or concerns at this time. CM to follow for discharge planning needs that may arise. Disposition Plan: Patient to discharge home with family support and follow-up plans in place. Trinity DANIEL, RN, CM
--- NOTE | 2024-03-16 14:32 | CRPHASE1_ITS ---
Patient Communication Patient Information Former Patient:: Phase I PHII Cardiac Rehab Discussed with Patient:: Yes Guide to Cardiac Rehab Given to Patient:: Yes Cardiac Rehab Facility Choice List Given to Patient:: Yes Communication to Cardiac Rehab Sessions:: 36 sessions - 3 days/wk, 12 weeks Cardiac Rehabilitation Info Program Information Cardiac Rehabilitation Program Information: Cardiac Rehab The cardiac rehab team at [facility] consists of highly skilled exercise physiologists, nurses, respiratory therapists and physicians working together with you. Our purpose is to help you have a full recovery and achieve the goals you set for yourself. Over the years many of our patients have returned to activities they assumed they would never do again! We can help restore your confidence and motivation to make lifestyle changes that can have a significant impact on your health and quality of life! We can help answer questions and concerns you may have about exercise, lifestyle, medications, diet, stress and anxiety which are common following a hospitalization. WE monitor ECG and vital signs during exercise and discuss your progress with you and report to your physician(s). Cardiac Rehab is proven to help reduce readmissions, improve functional capacity and lower recurrence of problems with your heart. Our Cardiac Rehab program is Certified by the [place] [employer]-Vascular and Pulmonary [employer] (AACVPR) and Accredited by the [place] [employer] through our [facility]. You can contact us at . We invite you to call us with your questions or to get started in our program. If you have other questions or concerns be sure to ask your physician/provider during your follow-up visit. WE look forward to seeing you!
--- NOTE | 2024-03-16 14:34 | CRPH1.INSTRU ---
General Education Discussed with Patient CAD and cardiac anatomy and function:: Patient communicates acknowledgment Explanation of diagnoses and procedures:: Patient communicates acknowledgment Sign/Symptoms of NM:: Patient communicates acknowledgment Antiplatelet therapy: Patient communicates acknowledgment Proper use of NTG-SL: Patient communicates acknowledgment Emergency procedures and activation of EMS: Patient communicates acknowledgment Compliance of all prescribed medications: Patient communicates acknowledgment Smoking Risk Factors Patient Nicotine/Smoking Risk Factors Are:: Cigarettes and Second-hand smoke Recommendations Recommendations Include:: Second-hand smoke recommendation and Previous smoker; encourage continued cessation Response Code Nicotine/Smoking Response Code:: Patient communicates acknowledgment Dyslipidemia Risk Factors Patient Dyslipidemia Risk Factors Are:: Total Cholesterol, Triglycerides, HDL and LDL Recommendations Recommendations Include:: Lipid profile not available, Reviewed NCEP/ATP guidelines and Therapeutic Lifestyle Change dietary guidelines Response Code Dyslipidemia Response Code:: Patient communicates acknowledgment Overweight/Obesity Risk Factors Patient Overweight/Obesity Risk Factors Are:: BMI Normal [18-25 & < 65 years old] Recommendations Recommendations Include:: Weight loss of 5-10%, Reduced calorie diet and Exercise 5-7 times/week Response Code Overweight/Obesity:: Patient communicates acknowledgment Hypertension Recommendations Recommendations Include:: Maintain BP <130/85, DASH dietary guidelines, Decrease/maintain normal body weight and Moderation of ETOH Response Code Hypertension:: Patient communicates acknowledgment Heart Disease Risk Factors Patient Heart Disease Risk Factors Are:: Family history of heart disease < 65 years old and Previous cardiac event Recommendations Recommendations Include:: Educated family members of their risk and Educated family members of importance of prevention of heart disease Response Code Heart Disease Response Code:: Patient communicates acknowledgment Diabetes Risk Factors Patient Diabetes Risk Factors Are:: No documented hx of diabetes Recommendations Recommendations Include:: Maintain fasting blood sugars 70-110 md/dL, Maintain HgbA1c of 6% or less and Decrease/maintain body weight Response Code Diabetes:: Patient communicates acknowledgment Metabolic Syndrome Risk Factors Patient Metabolic Syndrome Risk Factors Are [3 of 5]:: Fasting blood sugar > 100 mg/dL, Waist circumference > 35 [female] or 40 [male], High triglyceride >150, Hypertension and Low HDL <40 [male] or < 50 [female] Recommendations Recommendations Include:: Reinforce compliance to risk factor modifications and Encouraged follow-up with Primary Care Physician Response Code Metabolic Syndrome Response Code:: Patient communicates acknowledgment Sedentary Risk Factors Patient Sedentary Risk Factors Are:: Lack of regular exercise Recommendations Recommendations Include:: Aerobic exercise 5-7 times/week for 20-30 minutes continuously, Benefits of regular exercise, Discussed home walking program and Monitored Outpatient Cardiac Rehab Response Code Sedentary Response Code:: Patient communicates acknowledgment Stress Risk Factors Patient Stress Risk Factors Are:: Patient denies stress as a risk factor Recommendations Recommendations Include:: Identification of stressors, and assessment of coping skills and Stress management techniques Response Code Stress Response Code:: Patient communicates acknowledgment
--- NOTE | 2024-03-16 20:08 | CON.PCM.RE_ITS ---
Assessment & Plan Assessment/Plan (1) KALYN (acute kidney injury): PLAN: baseline cr around 2.0 or so. several fluctuations due to ongoing issues. renal US is ok. UA shows microscopic hematuria. will send ANCA anti GBM as well. SPEP. KALYN could be cardiorenal. no acute indication for BAND BOOKER (2) CKD (chronic kidney disease), stage IV: HPI Consult Data Date of Consult: 03/16/24 HPI Narrative Reason for Consultation: KALYN HPI Narrative: MARQUISE COLLEEN, is a 83 M who presents to the hospital with chest pain. nephrology on consultation in view of KALYN. on review of records history of CKD stage 3b/4. baseline cr around 2 or so. no urinary complaints. never seen nephrology before as per him. Bp is ok. admitted with NSTEMI. s/p PCI. 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 Vitamin D deficiency SOB (shortness of breath) GERD (gastroesophageal reflux disease) Heart failure with preserved ejection fraction Diabetic polyneuropathy Hypothyroidism CKD (chronic kidney disease), stage IV Atherosclerotic cardiovascular disease COPD (chronic obstructive pulmonary disease) Chronic hypoxemic respiratory failure Pneumonia due to COVID-19 virus Hypertension PVCs (premature ventricular contractions) Anemia Obesity (BMI 30.0-34.9) Diabetes mellitus, type II HLD (hyperlipidemia) Chest pain Home Medications ?Medication ?Instructions ?Recorded ?Last Taken ?Type famotidine 40 mg tablet 40 mg PO DAILY GERD 07/13/18 Unknown History pen needles, lancets, test strips See Rx Instructions .Route 04/23/22 Unknown Rx diabetic .COMPLEX #100 ea glimepiride 4 mg tablet 4 mg PO DAILY DIABETES 06/23/22 Unknown History melatonin 10 mg tablet 10 mg PO QHS SLEEP 06/23/22 Unknown History levothyroxine 25 mcg tablet 25 mcg PO DAILY THYROID 07/09/22 Unknown History ascorbate calcium (vitamin C) 500 500 mg PO DAILY SUPPLEMENT 03/09/24 Unknown History mg tablet carvedilol 6.25 mg tablet (Coreg) 3.125 mg PO BID BLOOD PRESSURE 03/09/24 Unknown History furosemide 40 mg tablet 40 mg PO BID EDEMA 03/09/24 Unknown History gabapentin 300 mg capsule 300 mg PO BID NEUROPATHY 03/09/24 Unknown History polysaccharide iron complex 150 mg 150 mg PO DAILY SUPPLEMENT 03/09/24 Unknown History iron capsule (Ferrex) insulin degludec 100 unit/mL (3 20 unit subcut BID DIABETES 03/15/24 Unknown History mL) subcutaneous pen (Tresiba FlexTouch U-100 insulin) valsartan 320 1 tab PO DAILY BLOOD PRESSURE 03/15/24 Unknown History mg-hydrochlorothiazide 12.5 mg tablet Allergy/AdvReac Type Severity Reaction Status Date / Time No Known Allergies Allergy Verified 03/15/24 15:09 Family History Brother Diabetes Mother Diabetes Sister Diabetes Father Heart disease Surgical History History of appendectomy Social History Smoking Status: Former smoker alcohol intake: never ROS ROS Narrative negative except above Physical Exam Narrative Alert awake oriented x 3 no obvious distress no pallor no icterus no JVD s1s2 no murmurs lungs clear abdomen soft no organomegaly no edema no cyanosis Lab / Micro Data 03/16/24 05:37 03/16/24 05:37 Labs: Laboratory Results - last 24 hr 03/15/24 15:46: Retic Count 1.59 H, Immature Retic Fraction 4.20, Retic Hgb Equivalent 31.4, Sodium 139, Potassium 4.7, Chloride 104, Carbon Dioxide 27.0, Anion Gap 8, BUN 148 H*, Creatinine 5.22 H, Estim Creat Clear Calc 11.98, Est GFR (MDRD) Af Amer 14 L, Est GFR (MDRD) Non-Af 11 L, BUN/Creatinine Ratio 28.4 H , Glucose 161 H, Calcium 8.8, Troponin I High Sens 412 H*, B-Natriuretic Peptide 13.8 03/15/24 17:44: Phosphorus 5.2 H, Magnesium 2.2, Iron 49 L, TIBC 226 L, Iron Saturation 21.7, Ferritin 111, Troponin I High Sens 342 H* 03/15/24 20:24: PT 14.7, INR 1.2, APTT 32.8 03/15/24 23:12: Troponin I High Sens 383 H* 10/30/24 00:06: POC Glucose 131 H 03/16/24 01:25: Urine Color Yellow, Urine Clarity Turbid, Urine pH 6.0, Ur Specific [place] 1.015, Urine Protein 30 H, Urine Glucose (UA) Normal, Urine Ketones Negative, Urine Occult Blood 150 H, Urine Nitrite Negative, Urine Bilirubin Negative, Urine Urobilinogen Normal, Ur Leukocyte Esterase 500 H, Urine RBC 10-25 SEEN, Urine WBC >100 SEEN, Ur Squamous Epith Cells 0 SEEN, Urine Bacteria 3+, Urine Mucus 0 SEEN, Urine Osmolality 391, U Random Total Protein 36.3 H, Ur Random Sodium 78, Urine Creatinine 52.10, Protein/Creatinin Ratio 697 H, Urine Potassium 26.0, Urine Chloride 81 03/16/24 05:37: WBC 7.7, RBC 2.87 L, Hgb 8.8 L, Hct 27.0 L, MCV 94.1 H, MCH 30.7, MCHC 32.6, RDW Std Deviation 45.6 H, RDW Coeff of Elmer 13.2, Plt Count 150, MPV 11.2, Immature Gran % (Auto) 0.400, Neut % (Auto) 62.6, Lymph % (Auto) 25.0, [place] % (Auto) 8.3, Eos % (Auto) 3.3, Baso % (Auto) 0.4, Absolute Neuts (auto) 4.8, Absolute Lymphs (auto) 1.92, Nucleated RBC % 0, APTT 212.0 H*, Sodium 139, Potassium 4.3, Chloride 106, Carbon Dioxide 28.0, Anion Gap 5, BUN 137 H*, C reatinine 4.43 H, Estim Creat Clear Calc 15.02, Est GFR (MDRD) Af Amer 16 L, Est GFR (MDRD) Non-Af 14 L, BUN/Creatinine Ratio 30.9 H, Glucose 211 H, Serum Osmolality 352 H, Calcium 8.7, Total Bilirubin 0.40, AST 18, ALT 14 L, Alkaline Phosphatase 71, Total Protein 7.4, Albumin 3.4, Globulin 4.0, Albumin/Globulin Ratio 0.8 L, Triglycerides 99, Cholesterol 75, LDL Cholesterol 25, VLDL Cholesterol 20, HDL Cholesterol 30 L, TSH 5.260 H, Free T4 0.75 L Micro: Microbiology 03/15/24 17:05 Stool Stool Occult Blood (GREG) - Final Imaging Radiology Impression Hip/Pelvis X-Ray 03/15/24 19:30 IMPRESSION: Normal x-ray examination of the pelvis and hip. Electronically Signed: Yan Staley MD at 20:17 EDT , Echocardiogram 03/16/24 05:55 Interpretation Summary Normal LV size. Left ventricular systolic function is normal. The left ventricular ejection fraction is 65 %. Moderate focal aortic valve calcification. Mild concentric left ventricular hypertrophy. Stage 1 diastolic dysfunction. Ordering Physician: Peter Lou Referring Physician: Kain Bhakta Chi Performed By: Rebeka Melton, RDCS, RVT Renal Ultrasound 03/16/24 05:55 IMPRESSION: No suspicious sonographic findings Electronically Signed: Jamey Sanchez MD at 11:34 EDT ,
[2024-03-16] MEDS: Senna/Docusate Sodium 1 Tablet 2 TABLET PO (21:47)
[2024-03-16] MEDS: Carvedilol 6.25 MG Tablet PO (21:47)
[2024-03-16] MEDS: TICAGRELOR 90 MG TABLET PO (21:47)
[2024-03-16] MEDS: MELATONIN 10 MG TABLET PO (21:48)
[2024-03-16 22:27] LABS: Bedside Glucose 182 mg/dL (74-106)
[2024-03-17 02:00] VITALS: BP 109/48; PULSE 68; RESP 23; TEMP 36.8; O2SAT 100
[2024-03-17 03:00] VITALS: BP 109/48; PULSE 68; RESP 23; TEMP 36.8; O2SAT 100
[2024-03-17 05:18] VITALS: BMI 28.3
[2024-03-17] MEDS: Levothyroxine 25 MCG TABLET PO (05:45)
[2024-03-17 07:43] LABS: Hematocrit 23.6 % (40-54); Hemoglobin 7.5 g/dL (13.0-16.5); Mean Corp Hgb Conc 31.8 g/dL (32-36); Mean Corpuscular Hgb 30.2 pg (27.0-32.0); Mean Corpuscular Volume 95.2 fL (80-94); Mean Platelet Vol. 11.2 fl (6.2-12.0); Platelet Count 150 K/mm3 (150-450); RBC Distribution Width CV 13.5 % (11.6-14.6); RBC Distribution Width SD 46.7 fl (35.1-43.9); Red Blood Count 2.48 M/mm3 (4.6-6.2); White Blood Count 10.8 K/mm3 (4.4-11.0)
[2024-03-17 08:04] VITALS: O2SAT 96
[2024-03-17 08:10] LABS: ALB/GLOB Ratio 0.9 RATIO (0.9-2.4); AST(SGOT) 29 U/L (15-37); Alanine Aminotransfer ALT/SGPT 14 U/L (16-61); Albumin, Serum 3.2 g/dL (3.2-5.0); Alkaline Phosphatase 63 U/L (45-117); Anion Gap 4 (5-15); BUN 116 mg/dL (7-18); BUN/Creat Ratio 33.1 RATIO (10-20); Calcium,Total 8.9 mg/dL (8.5-10.1); Chloride 112 mmol/L (98-107); EST Glomerular Filtration Rate 18 mL/min (>60); Est Glom Filt Rate - Afr Amer 22 mL/min (>60); Estimated Creatinine Clearance 18.54 ml/min; Globulin 3.7 g/dL (2.2-4.2); Glucose 149 mg/dL (74-106); Potassium 4.6 mmol/L (3.5-5.1); Protein, Total 6.9 g/dL (6.4-8.2); Sodium Level 145 mmol/L (136-145)
--- NOTE | 2024-03-17 08:11 | PN.CARD_ITS ---
Subjective Subjective Patient seen and evaluated. Doing better this morning. No chest pain. Objective Data Vital Signs: Vital Signs Temp Pulse Resp BP Pulse Ox O2 Del Method O2 Flow Rate 98.2 F 68 23 H 109/48 L 96 High Flow 7 03/17/24 03:00 03/17/24 03:00 03/17/24 03:00 03/17/24 03:00 03/17/24 08:04 03/17/24 08:04 03/17/24 08:04 Oxygen Flow Rate (L/min) 7 Oxygen Delivery Method High Flow Weight: 202 lb 13.204 oz Body Mass Index (BMI) 28.3 Intake & Output: Intake and Output for Last 24 Hours 03/15/24 03/16/24 03/17/24 23:59 23:59 23:59 Intake Total 2266.67 / 2386.67 240 / 240 Output Total 1375 / 1375 335 / 335 Balance 891.67 / 1011.67 -95 / -95 Lab / Micro Data 03/17/24 07:19 03/17/24 07:19 Labs: Laboratory Results - last 24 hr 03/16/24 21:57: POC Glucose 182 H 03/17/24 07:19: WBC 10.8, RBC 2.48 L, Hgb 7.5 L 03/17/24 07:19: Hgb Cancelled, Hct 23.6 L 03/17/24 07:19: Hct Cancelled, MCV 95.2 H, MCH 30.2, MCHC 31.8 L, RDW Std Deviation 46.7 H, RDW Coeff of Elmer 13.5, Plt Count 150, MPV 11.2, Diff Path Review Cancelled, Sodium 145, Potassium 4.6, Chloride 112 H, Carbon Dioxide 29.0, Anion Gap 4 L, BUN 116 H*, Creatinine 3.50 H, Estim Creat Clear Calc 18.54, Est GFR (MDRD) Af Amer 22 L, Est GFR (MDRD) Non-Af 18 L, BUN/Creatinine Ratio 33.1 H, Glucose 149 H, Calcium 8.9, Total Bilirubin 0.40, AST 29, ALT 14 L , Alkaline Phosphatase 63, Total Protein 6.9, Albumin 3.2, Globulin 3.7, Albumin/Globulin Ratio 0.9 Micro: Microbiology 03/16/24 01:25 Urine, Clean Catch Urine Culture - Preliminary GPC Poss Enterococcus sp Cardiology Labs/Tests 03/17/24 07:19: WBC 10.8, RBC 2.48 L, Hgb 7.5 L 03/17/24 07:19: Hgb Cancelled, Hct 23.6 L 03/17/24 07:19: Hct Cancelled, MCV 95.2 H, MCH 30.2, MCHC 31.8 L, Plt Count 150, MPV 11.2, Sodium 145, Potassium 4.6, Chloride 112 H, Carbon Dioxide 29.0, Anion Gap 4 L, BUN 116 H*, Creatinine 3.50 H, Est GFR (MDRD) Af Amer 22 L, Est GFR (MDRD) Non-Af 18 L, BUN/Creatinine Ratio 33.1 H, Glucose 149 H, Calcium 8.9, Total Bilirubin 0.40 Rhythm: EKG: ECHO: Stress Test: Cardiac Cath: PCI: CT Surgery: Holter monitor: EPS: PPM: CXR: Chest CT Scan: Radiography Diagnostic Testing: Radiology Impression Echocardiogram 03/16/24 05:55 Interpretation Summary Normal LV size. Left ventricular systolic function is normal. The left ventricular ejection fraction is 65 %. Moderate focal aortic valve calcification. Mild concentric left ventricular hypertrophy. Stage 1 diastolic dysfunction. Ordering Physician: Peter Lou Referring Physician: Kain Bhakta Chi Performed By: Rebeka Melton, RDCS, RVT Renal Ultrasound 03/16/24 05:55 IMPRESSION: No suspicious sonographic findings Electronically Signed: Jamey Sanchez MD at 11:34 EDT , Physical Exam Const alert, oriented x3 and no apparent distress General Appearance: cooperative HEENT hearing grossly normal bilaterally Head and Scalp: atraumatic Eyes EOMs intact bilaterally Neck General: normal visual inspection Chest inspection of chest normal and palpation of chest normal Resp normal respiratory effort Auscultation: clear to auscultation bilaterally Cardio regular rate, regular rhythm, S1 normal heart sound and S2 normal heart sound Jugular Venous Distention: JVD GI normal to inspection, nondistended, normoactive bowel sounds Extremity normal capillary refill and no pedal edema Peripheral Pulses: Yes pulses 2+ throughout and femoral pulses present Skin no rashes or lesions noted Neuro oriented x3 and CN's II-XII intact bilaterally Psych Appearance: grossly normal and appropriate Assessment & Plan Assessment/Plan (1) Non-ST elevation CO (NSTEMI): PLAN: Patient presents with chest discomfort and is noted to have a non-ST elevation myocardial infarction. Patient was taken to the cardiac catheterization lab and it demonstrated the following: Mildly calcified left anterior descending artery with 60% proximal stenosis and mild diffuse disease. First obtuse marginal branch with mild disease. Ostial circumflex with 95% high-grade stenosis. Codominant right coronary artery with a totally occluded proximal zone with [id number] collaterals. Preserved left ventricular systolic function. The patient is noted to be high risk and he underwent successful PCI of the proximal circumflex artery. This morning he is doing well his postop EKG looks stable and his creatinine has actually improved. His hemoglobin is however noted to be down. He may need a GI evaluation at some point but it is critical that his antiplatelet therapy is not discontinued. This especially in light of the location of the recently placed stent. (2) Hypertension: PLAN: Blood pressure appears to be under fair control. The plan will be to continue the current medical therapy. I would recommend that we discontinue the valsartan on account of the fact that he has significant renal dysfunction and substituted calcium channel vahe and a beta-vahe Perhaps the discontinuation of the valsartan has improved his creatinine.
[2024-03-17 08:17] LABS: Ferritin 287 ng/mL (26-388); Iron 188 ug/dL (65-175); Iron Binding Capacity,Total 245 ug/dL (250-450); PERCENT IRON SATURATION 76.7 % (15.0-55.0)
[2024-03-17 09:29] VITALS: BP 167/69; PULSE 80; RESP 17; TEMP 36.7; O2SAT 100
[2024-03-17] MEDS: Aspirin E.C. 81 MG Tablet PO (09:33)
[2024-03-17] MEDS: TICAGRELOR 90 MG TABLET PO ×2 (09:34→21:34)
[2024-03-17] MEDS: Ascorbic Acid 500 MG Tablet PO (09:34)
[2024-03-17] MEDS: Senna/Docusate Sodium 1 Tablet 2 TABLET PO ×2 (09:34→21:34)
[2024-03-17] MEDS: Carvedilol 6.25 MG Tablet PO ×2 (09:34→21:34)
[2024-03-17] MEDS: Insulin Glargine-YFGN 100 UNIT/ML Pen 15 UNIT SC ×2 (09:35→21:46)
--- NOTE | 2024-03-17 10:00 | EKG12_ITS ---
Test Reason : AM EKG Blood Pressure : */* mmHG Vent. Rate : 79 BPM Atrial Rate : 79 BPM P-R Int : 246 ms QRS Dur : 94 ms QT Int : 374 ms P-R-T Axes : 27 -31 2 degrees QTcB Int : 428 ms Sinus rhythm with 1st degree A-V block Left axis deviation Septal infarct , age undetermined Abnormal ECG When compared with ECG of 16-Mar-2024 12:36, MANUAL COMPARISON REQUIRED DATA IS UNCONFIRMED Confirmed by MAIK EVANS, ROLANDO ([id number]), communications editor DENNIS RUBIO ([id number]) on 03/18/2024 11:14:13 AM Referred By: LORAINE Confirmed By: ROLANDO PLEITEZ MD
--- NOTE | 2024-03-17 13:11 | PN_ITS ---
Subjective Subjective Patient seen and examined. He had no active complaints and felt well. Review of systems is otherwise negative. He was comfortably eating his breakfast. He has remained hemodynamically stable. Objective Data Objective Data Vital Signs: Vital Signs Temp Pulse Resp BP Pulse Ox O2 Del Method O2 Flow Rate 98.1 F 80 17 167/69 H 100 High Flow 5 03/17/24 09:29 03/17/24 09:29 03/17/24 09:29 03/17/24 09:29 03/17/24 09:29 03/17/24 09:29 03/17/24 11:30 Oxygen Flow Rate (L/min) 5 Oxygen Delivery Method High Flow Weight: 202 lb 13.204 oz Body Mass Index (BMI) 28.3 Intake & Output: Intake and Output for Last 24 Hours 03/15/24 03/16/24 03/17/24 23:59 23:59 23:59 Intake Total 2266.67 / 2386.67 240 / 240 Output Total 1375 / 1375 335 / 335 Balance 891.67 / 1011.67 -95 / -95 Lab / Micro Data 03/17/24 07:19 03/17/24 07:19 Labs: Laboratory Results - last 24 hr 03/16/24 21:57: POC Glucose 182 H 03/17/24 07:19: WBC 10.8, RBC 2.48 L, Hgb 7.5 L 03/17/24 07:19: Hgb Cancelled, Hct 23.6 L 03/17/24 07:19: Hct Cancelled, MCV 95.2 H, MCH 30.2, MCHC 31.8 L, RDW Std Deviation 46.7 H, RDW Coeff of Elmer 13.5, Plt Count 150, MPV 11.2, Diff Path Review Cancelled, Sodium 145, Potassium 4.6, Chloride 112 H, Carbon Dioxide 29.0, Anion Gap 4 L, BUN 116 H*, Creatinine 3.50 H, Estim Creat Clear Calc 18.54, Est GFR (MDRD) Af Amer 22 L, Est GFR (MDRD) Non-Af 18 L, BUN/Creatinine Ratio 33.1 H, Glucose 149 H, Calcium 8.9, Iron 188 H, TIBC 245 L, Iron Saturation 76.7 H, Ferritin 287, Total Bilirubin 0.40, AST 29, ALT 14 L, Alkaline Phosphatase 63, Total Protein 6.9, Albumin 3.2, Globulin 3.7, Albumin/Globulin Ratio 0.9 Micro: Microbiology 03/16/24 01:25 Urine, Clean Catch Urine Culture - Preliminary GPC Poss Enterococcus sp 03/15/24 17:05 Stool Stool Occult Blood (GREG) - Final Physical Exam Const alert, oriented x3 and no apparent distress General Appearance: cooperative HEENT normocephalic, head/scalp atraumatic and moist oral mucous membranes Eyes PERRL and EOMs intact bilaterally Neck no lymphadenopathy, supple and no JVD Lymph Lymphatic: no lymphadenopathy noted and no lymphedema noted Resp Resp Narrative: mildly diminished breath sounds bibasally, no wheezes or crackles. On 3L of oxygen by nasal canula Cardio regular rate, regular rhythm, S1 normal heart sound, S2 normal heart sound and no murmurs GI normal to inspection, nondistended, normoactive bowel sounds, soft to palpation, non-tender and non-distended Extremity normal capillary refill, no clubbing, cyanosis or edema and no calf tenderness General Extremity: no tenderness to palpation of joints or extremities Skin General Skin Exam: no breakdown Neuro CN's II-XII intact bilaterally, no focal motor deficits and no sensory deficits noted Coordination / Balance: [id number] test normal Motor Exam: strength 5/5 throughout and general weakness Psych thought process normal, cooperative and affect normal Appearance: appropriate Assessment & Plan Assessment/Plan (1) KALYN (acute kidney injury): (2) Non-ST elevation IN (NSTEMI): PLAN: Plan #Nonstemi * patient was admitted with a complaint of chest pain. Chest pain was persistent even when having an echo * he was sent emergently to the cath lab nurse where cardiac cath showed totally occluded RCA with high-grade left circumflex artery stenosis and moderate disease of the left anterior descending artery with left to right collaterals. * He had urgent PCI to the left circumflex artery * On aspirin and Brilinta as well as high intensity statin * #Acute on chronic anemia * Hb today 7.5. It was 8.8 yesterday. He has no evidence of bleeding * Iron profile does not show any evidence of iron deficiency anemia * Stool for occult blood ordered. Monitor hemoglobin and transfuse if Hb <7 * #Hypotension * resolved. * On Coreg 6.25mg bid. * #Hypothyroidism: on synthroid #Type 2 diabetes mellitus: on lantus 15 units bid. ISS. Accuchecks ACHS #UTI: urinalysis showed 3+ bacteria. on IV ceftriaxone. Urine cultures growing gram positive cocci, possibly Enterococci. Await speciation #KALYN on CKD III * Cr today is down to 3.5 from 4.43 yesterday. * Cr was 5.22 on admission, with baseline being ~3. * Nephrology on board. * He also received dye during the cath so that may worsen kidney function. * await nephrology evaluation * hold any nephrotoxic meds. * renal USG today showed no suspicious findings. * continue trending Cr #HFpEF: hold lasix due to worsening of kidney function. #Hypertension: continue to hold valsartan and HCTZ due to KALYN on BILL #Hyperlipidemia: on statin #Hypothyroidism: * TSH is elevated at 5.26 and free T4 is 0.75. * Will hold off on initiating treatment now, in light of his ultimately age and would benefit from thyroid function on outpatient basis to determine if treatment is needed. #GERD: on PPI DVT prophylaxis; SCDs. Charges/Coding Visit Charges Inpatient E&M: 29572 Subs Hosp L3
[2024-03-17 14:00] VITALS: BP 129/51; PULSE 73; RESP 20; TEMP 36.8; O2SAT 100
[2024-03-17 14:04] LABS: Hematocrit 23.5 % (40-54); Hemoglobin 7.7 g/dL (13.0-16.5)
--- NOTE | 2024-03-17 16:18 | PCM.PN.REN ---
Subjective Subjective no new complaints Objective Data Objective Data Vital Signs: Vital Signs Temp Pulse Resp BP Pulse Ox O2 Del Method O2 Flow Rate 98.2 F 73 20 H 129/51 H 100 High Flow 4 03/17/24 14:00 03/17/24 14:00 03/17/24 14:00 03/17/24 14:00 03/17/24 14:00 03/17/24 14:00 03/17/24 14:00 Oxygen Flow Rate (L/min) 4 Oxygen Delivery Method High Flow Weight: 92 kg Body Mass Index (BMI) 28.3 Intake & Output: Intake and Output for Last 24 Hours 03/15/24 03/16/24 03/17/24 23:59 23:59 23:59 Intake Total 2266.67 / 2386.67 480 / 480 Output Total 1375 / 1375 835 / 835 Balance 891.67 / 1011.67 -355 / -355 Lab / Micro Data 03/17/24 13:50 03/17/24 07:19 Labs: Laboratory Results - last 24 hr 03/16/24 21:57: POC Glucose 182 H 03/17/24 07:19: WBC 10.8, RBC 2.48 L, Hgb 7.5 L 03/17/24 07:19: Hgb Cancelled, Hct 23.6 L 03/17/24 07:19: Hct Cancelled, MCV 95.2 H, MCH 30.2, MCHC 31.8 L, RDW Std Deviation 46.7 H, RDW Coeff of Elmer 13.5, Plt Count 150, MPV 11.2, Diff Path Review Cancelled, Sodium 145, Potassium 4.6, Chloride 112 H, Carbon Dioxide 29.0, Anion Gap 4 L, BUN 116 H*, Creatinine 3.50 H, Estim Creat Clear Calc 18.54, Est GFR (MDRD) Af Amer 22 L, Est GFR (MDRD) Non-Af 18 L, BUN/Creatinine Ratio 33.1 H, Glucose 149 H, Calcium 8.9, Iron 188 H, TIBC 245 L, Iron Saturation 76.7 H, Ferritin 287, Total Bilirubin 0.40, AST 29, ALT 14 L, Alkaline Phosphatase 63, Total Protein 6.9, Albumin 3.2, Globulin 3.7, Albumin/Globulin Ratio 0.9 03/17/24 13:50: Hgb 7.7 L, Hct 23.5 L Micro: Microbiology 03/17/24 15:14 Stool Stool Occult Blood (GREG) - Final 03/16/24 01:25 Urine, Clean Catch Urine Culture - Preliminary GPC Poss Enterococcus sp 03/15/24 17:05 Stool Stool Occult Blood (GREG) - Final Physical Exam Narrative Alert awake oriented x 3 no obvious distress no pallor no icterus no JVD s1s2 no murmurs lungs clear abdomen soft no organomegaly no edema no cyanosis Assessment & Plan Assessment/Plan (1) KALYN (acute kidney injury): PLAN: baseline cr around 2.0 or so. several fluctuations due to ongoing issues. renal US is ok. UA shows microscopic hematuria. We have sent serologies. S/p PCI. Creatinine is better today. Volume status looks good. (2) CKD (chronic kidney disease), stage IV:
[2024-03-17 21:30] VITALS: BP 160/64; PULSE 97; RESP 17; TEMP 36.9; O2SAT 97
[2024-03-17] MEDS: MELATONIN 10 MG TABLET PO (21:34)
[2024-03-17] MEDS: Ceftriaxone 1 GM/50 ML BAG IV (21:47)
[2024-03-17 22:11] LABS: Bedside Glucose 120 mg/dL (74-106)
[2024-03-18] VITALS (12 sets, daily range): BP systolic 138–168; BP diastolic 58–88; PULSE 72–91; RESP 16–19; TEMP 36.3–36.8; O2SAT 92–100; BMI 28.3
[2024-03-18] MEDS: Levothyroxine 25 MCG TABLET PO (05:45)
[2024-03-18 08:45] LABS: Absolute Lymphocyte Count 1.23 X10^3/uL (0.83-4.51); Basophil# 0.03 X10^3/uL; Basophil% 0.2 % (0-1); Eosinophil# 0.05 X10^3/uL; Eosinophils% 0.4 % (0-5); Hematocrit 23.4 % (40-54); Hemoglobin 7.4 g/dL (13.0-16.5); Lymphocyte # 1.23 X10^3/ul (0.83-4.51); Lymphocyte % 10.2 % (19-41); Mean Corp Hgb Conc 31.6 g/dL (32-36); Mean Corpuscular Hgb 29.7 pg (27.0-32.0); Mean Platelet Vol. 10.8 fl (6.2-12.0); Monocyte% 5.8 % (0-10); NRBC Flagged by Analyzer 0 % (0-5); Neutrophil # 9.96 X10^3/uL (2.7-7.7); Neutrophil % 82.7 % (47-70); Platelet Count 152 K/mm3 (150-450); RBC Distribution Width CV 13.5 % (11.6-14.6); RBC Distribution Width SD 46.5 fl (35.1-43.9); Red Blood Count 2.49 M/mm3 (4.6-6.2); White Blood Count 12.1 K/mm3 (4.4-11.0)
[2024-03-18] MEDS: Aspirin E.C. 81 MG Tablet PO (09:11)
[2024-03-18] MEDS: Ascorbic Acid 500 MG Tablet PO (09:11)
[2024-03-18] MEDS: Carvedilol 6.25 MG Tablet PO ×2 (09:11→21:21)
[2024-03-18] MEDS: TICAGRELOR 90 MG TABLET PO ×2 (09:11→21:21)
[2024-03-18 09:13] LABS: Anion Gap 6 (5-15); BUN 93 mg/dL (7-18); BUN/Creat Ratio 32.5 RATIO (10-20); Calcium,Total 9.4 mg/dL (8.5-10.1); Chloride 113 mmol/L (98-107); Creatinine, Serum 2.86 mg/dL (0.70-1.30); EST Glomerular Filtration Rate 23 mL/min (>60); Est Glom Filt Rate - Afr Amer 27 mL/min (>60); Estimated Creatinine Clearance 22.69 ml/min; Glucose 82 mg/dL (74-106); Potassium 3.8 mmol/L (3.5-5.1); Sodium Level 147 mmol/L (136-145)
--- NOTE | 2024-03-18 10:00 | EKG12_ITS ---
Test Reason : AM EKG Blood Pressure : */* mmHG Vent. Rate : 76 BPM Atrial Rate : 76 BPM P-R Int : 228 ms QRS Dur : 94 ms QT Int : 356 ms P-R-T Axes : 16 -36 32 degrees QTcB Int : 400 ms Sinus rhythm with 1st degree A-V block Left axis deviation Minimal voltage criteria for LVH, may be normal variant ( R in aVL ) Nonspecific ST and T wave abnormality Abnormal ECG When compared with ECG of 17-Mar-2024 05:32, MANUAL COMPARISON REQUIRED DATA IS UNCONFIRMED Confirmed by MAIK EVANS, ROLANDO ([id number]), book editor SJ HANKINS ([id number]) on 03/18/2024 12:44:13 PM Referred By: KIRSTY Confirmed By: ROLANDO PLEITEZ MD
[2024-03-18] MEDS: Insulin Glargine-YFGN 100 UNIT/ML Pen 15 UNIT SC ×2 (11:35→21:21)
[2024-03-18 12:15] LABS: Bedside Glucose 183 mg/dL (74-106)
--- NOTE | 2024-03-18 12:30 | PN.RENAL_ITS ---
Subjective Subjective no new events Objective Data Objective Data Vital Signs: Vital Signs Temp Pulse Resp BP Pulse Ox O2 Del Method O2 Flow Rate 97.6 F L 88 18 168/73 H 97 Nasal Cannula 4 03/18/24 08:57 03/18/24 08:57 03/18/24 08:57 03/18/24 08:57 03/18/24 08:57 03/18/24 09:05 03/18/24 09:05 Oxygen Flow Rate (L/min) 4 Oxygen Delivery Method Nasal Cannula Weight: 92 kg Body Mass Index (BMI) 28.3 Intake & Output: Intake and Output for Last 24 Hours 03/16/24 03/17/24 03/18/24 23:59 23:59 23:59 Intake Total 2266.67 / 2386.67 530 / 650 220 / 220 Output Total 1375 / 1375 835 / 1385 700 / 700 Balance 891.67 / 1011.67 -305 / -735 -480 / -480 Lab / Micro Data 03/18/24 08:25 03/18/24 08:25 Labs: Laboratory Results - last 24 hr 03/17/24 13:50: Hgb 7.7 L, Hct 23.5 L 03/17/24 21:45: POC Glucose 120 H 03/18/24 08:25: WBC 12.1 H, RBC 2.49 L, Hgb 7.4 L, Hct 23.4 L, MCV 94.0, MCH 29.7, MCHC 31.6 L, RDW Std Deviation 46.5 H, RDW Coeff of Elmer 13.5, Plt Count 152, MPV 10.8, Immature Gran % (Auto) 0.700, Neut % (Auto) 82.7 H, Lymph % (Auto) 10.2 L, [place] % (Auto) 5.8, Eos % (Auto) 0.4, Baso % (Auto) 0.2, Absolute Neuts (auto) 10.0 H, Absolute Lymphs (auto) 1.23, Nucleated RBC % 0, Sodium 147 H, Potassium 3.8, Chloride 113 H, Carbon Dioxide 28.0, Anion Gap 6, BUN 93 H, C reatinine 2.86 H, Estim Creat Clear Calc 22.69, Est GFR (MDRD) Af Amer 27 L, Est GFR (MDRD) Non-Af 23 L, BUN/Creatinine Ratio 32.5 H, Glucose 82, Calcium 9.4 03/18/24 11:34: POC Glucose 183 H Micro: Microbiology 03/16/24 01:25 Urine, Clean Catch Urine Culture - Final Enterococcus faecalis 03/17/24 15:14 Stool Stool Occult Blood (GREG) - Final 03/15/24 17:05 Stool Stool Occult Blood (GREG) - Final Physical Exam Narrative Alert awake oriented x 3 no obvious distress no pallor no icterus no JVD s1s2 no murmurs lungs clear abdomen soft no organomegaly no edema no cyanosis Assessment & Plan Assessment/Plan (1) KALYN (acute kidney injury): PLAN: baseline cr around 2.0 or so. several fluctuations due to ongoing issues. renal US is ok. UA shows microscopic hematuria. We have sent serologies. S/p PCI. Creatinine is better today. Volume status looks good. (2) CKD (chronic kidney disease), stage IV:
--- NOTE | 2024-03-18 13:32 | PN_ITS ---
Subjective Subjective Patient seen and examined. He complains of coughing up some blood today. He also complains of pain with urination. Review of systems is otherwise negative. Hb today is 7.4. Objective Data Objective Data Vital Signs: Vital Signs Temp Pulse Resp BP Pulse Ox O2 Del Method O2 Flow Rate 97.6 F L 88 18 168/73 H 97 Nasal Cannula 4 03/18/24 08:57 03/18/24 08:57 03/18/24 08:57 03/18/24 08:57 03/18/24 08:57 03/18/24 09:05 03/18/24 09:05 Oxygen Flow Rate (L/min) 4 Oxygen Delivery Method Nasal Cannula Weight: 202 lb 13.204 oz Body Mass Index (BMI) 28.3 Intake & Output: Intake and Output for Last 24 Hours 03/16/24 03/17/24 03/18/24 23:59 23:59 23:59 Intake Total 2266.67 / 2386.67 530 / 650 220 / 220 Output Total 1375 / 1375 835 / 1385 700 / 700 Balance 891.67 / 1011.67 -305 / -735 -480 / -480 Lab / Micro Data 03/18/24 08:25 03/18/24 08:25 Labs: Laboratory Results - last 24 hr 03/17/24 13:50: Hgb 7.7 L, Hct 23.5 L 03/17/24 21:45: POC Glucose 120 H 03/18/24 08:25: WBC 12.1 H, RBC 2.49 L, Hgb 7.4 L, Hct 23.4 L, MCV 94.0, MCH 29.7, MCHC 31.6 L, RDW Std Deviation 46.5 H, RDW Coeff of Elmer 13.5, Plt Count 152, MPV 10.8, Immature Gran % (Auto) 0.700, Neut % (Auto) 82.7 H, Lymph % (Auto) 10.2 L, [place] % (Auto) 5.8, Eos % (Auto) 0.4, Baso % (Auto) 0.2, Absolute Neuts (auto) 10.0 H, Absolute Lymphs (auto) 1.23, Nucleated RBC % 0, Sodium 147 H, Potassium 3.8, Chloride 113 H, Carbon Dioxide 28.0, Anion Gap 6, BUN 93 H, C reatinine 2.86 H, Estim Creat Clear Calc 22.69, Est GFR (MDRD) Af Amer 27 L, Est GFR (MDRD) Non-Af 23 L, BUN/Creatinine Ratio 32.5 H, Glucose 82, Calcium 9.4 03/18/24 11:34: POC Glucose 183 H Micro: Microbiology 03/16/24 01:25 Urine, Clean Catch Urine Culture - Final Enterococcus faecalis 03/17/24 15:14 Stool Stool Occult Blood (GREG) - Final 03/15/24 17:05 Stool Stool Occult Blood (RGEG) - Final Physical Exam Const alert, oriented x3 and no apparent distress General Appearance: cooperative HEENT normocephalic, head/scalp atraumatic and moist oral mucous membranes Eyes PERRL and EOMs intact bilaterally Neck no lymphadenopathy, supple and no JVD Lymph Lymphatic: no lymphadenopathy noted and no lymphedema noted Resp Resp Narrative: mildly diminished breath sounds bibasally, no wheezes or crackles. On 4L of oxygen by nasal canula Cardio regular rate, regular rhythm, S1 normal heart sound, S2 normal heart sound and no murmurs GI normal to inspection, nondistended, normoactive bowel sounds, soft to palpation, non-tender and non-distended Extremity normal capillary refill, no clubbing, cyanosis or edema and no calf tenderness General Extremity: no tenderness to palpation of joints or extremities Skin General Skin Exam: no breakdown Neuro CN's II-XII intact bilaterally, no focal motor deficits and no sensory deficits noted Coordination / Balance: [id number] test normal Motor Exam: strength 5/5 throughout and general weakness Psych thought process normal, cooperative and affect normal Appearance: appropriate Assessment & Plan Assessment/Plan (1) KALYN (acute kidney injury): (2) Non-ST elevation DC (NSTEMI): PLAN: Plan #Nonstemi * patient was admitted with a complaint of chest pain. Chest pain was persistent even when having an echo * he was sent emergently to the labor crew supervisor where cardiac cath showed totally occluded RCA with high-grade left circumflex artery stenosis and moderate disease of the left anterior descending artery with left to right collaterals. * He had urgent PCI to the left circumflex artery * On aspirin and Brilinta as well as high intensity statin * #Acute on chronic anemia * Hb today 7.4 today. It was 7.5 yesterday. He has no evidence of bleeding * Iron profile does not show any evidence of iron deficiency anemia * Stool for occult blood ordered. * He is having hemoptysis today. Chest x-ray done showed monitor hemoglobin and transfuse if Hb <7 * #Hypotension * resolved. * On Coreg 6.25mg bid. * #Hypothyroidism: on synthroid #Type 2 diabetes mellitus: on lantus 15 units bid. ISS. Accuchecks ACHS #UTI: urinalysis showed 3+ bacteria. on IV ceftriaxone. Urine cultures growing gram positive cocci, possibly Enterococci. Await speciation #KALYN on CKD III * Creatinine continues to improve and is down to 2.86 today. * Cr was 5.22 on admission, with baseline being ~3. * Nephrology on board. * He also received dye during the cath so that may worsen kidney function. * await nephrology evaluation * hold any nephrotoxic meds. * renal USG today showed no suspicious findings. * continue trending Cr #HFpEF: hold lasix due to worsening of kidney function. #Hypertension: continue to hold valsartan and HCTZ due to KALYN on BILL #Hyperlipidemia: on statin #Hypothyroidism: * TSH is elevated at 5.26 and free T4 is 0.75. * Will hold off on initiating treatment now, in light of his ultimately age and would benefit from thyroid function on outpatient basis to determine if treatment is needed. #GERD: on PPI DVT prophylaxis; SCDs. Charges/Coding Visit Charges Inpatient E&M: 90104 Subs Hosp L3
[2024-03-18 14:10] LABS: Cytoplasmic Ab (C-ANCA) <1:20 titer (Neg:<1:20); Perinuclear Ab (P-ANCA) <1:20 titer (Neg:<1:20)
--- NOTE | 2024-03-18 14:30 | RAD_ITS ---
INDICATION: hemoptysis EXAMINATION/TECHNIQUE: X-RAY - XR Chest 2 Views COMPARISON: 03/15/2024 chest radiograph. Findings: Frontal and lateral views of the chest. LUNG PARENCHYMA: Interval worsening of diffuse bilateral lower lung streaky airspace disease from 3 days prior. PLEURA: No pleural effusion. No pneumothorax. HEART/GREAT VESSELS: Cardiomediastinal silhouette is enlarged. BONES: Osseous structures are unremarkable for age. RAD/Chest PA and Lateral IMPRESSION: Interval worsening of diffuse bilateral lower lung streaky airspace disease from 3 days prior to include pulmonary edema or other infectious/inflammatory etiology. Recommend follow-up to resolution. Electronically Signed: Evan Hazel MD at 23:17 EDT ,
--- NOTE | 2024-03-18 14:30 | CASEMGMT ---
Discharge Planning A list of?SNF providers including quality and resource use data and consistent with the patient's preferred geographic region, medical needs, and insurance network were printed and provided from the [facility] Guide. Zina Joaquin, Discharge Planning Asst.
--- NOTE | 2024-03-18 14:38 | CASEMGMT ---
NADIA CARDENAS in to discuss progress with therapy and needs for discharge. Patient states he does not feel safe to go home and would like to go to SNF. NADIA CARDENAS informed patient that a SNF list would be provided to review for preferences. Patient had no further questions or concerns. NADIA CARDENAS updated SW and DC capacity planning manager.
[2024-03-18] MEDS: Ciprofloxacin 400 MG/200 ML BAG 200 MG IV (14:45)
[2024-03-18] MEDS: 0.9% Saline Lock 10 ML Syringe IV (14:46)
--- NOTE | 2024-03-18 15:40 | CASEMGMT ---
Discharge Planning Patient choice is 1) TCU. SW asked to send referral. Advised pt to discuss alternative choices with his daughter in the event TCU declined. Zina Joaquin DC Planning Asst.
--- NOTE | 2024-03-18 15:47 | CASEMGMT ---
CEASAR sent a referral to TCU. Referral will be reviewed Thursday when Dennise returns. Waleska BURGESS
[2024-03-18] MEDS: MELATONIN 10 MG TABLET PO (21:21)
[2024-03-18] MEDS: Acetaminophen 325 MG Tablet 650 MG PO (21:30)
[2024-03-18 22:40] LABS: Bedside Glucose 180 mg/dL (74-106)
[2024-03-19 03:21] VITALS: BP 137/82; PULSE 80; RESP 18; TEMP 36.8; O2SAT 97
[2024-03-19] MEDS: Levothyroxine 25 MCG TABLET PO (05:24)
[2024-03-19 05:32] VITALS: BMI 28.3
[2024-03-19 08:33] VITALS: O2SAT 96
[2024-03-19 09:21] VITALS: BP 163/59; PULSE 77; RESP 18; TEMP 36.7; O2SAT 96
[2024-03-19] MEDS: Ciprofloxacin 400 MG/200 ML BAG 200 MG IV (09:25)
[2024-03-19] MEDS: Ascorbic Acid 500 MG Tablet PO (09:26)
[2024-03-19] MEDS: Aspirin E.C. 81 MG Tablet PO (09:26)
[2024-03-19] MEDS: Carvedilol 6.25 MG Tablet PO ×2 (09:26→21:02)
[2024-03-19] MEDS: TICAGRELOR 90 MG TABLET PO ×2 (09:27→21:03)
[2024-03-19] MEDS: Tamsulosin HCl 0.4 MG Capsule PO (09:27)
--- NOTE | 2024-03-19 09:47 | PN_ITS ---
Subjective Subjective Patient seen and examined. HE still complained of hemoptysis. HE denied any cough, chest pain, palpitations, dizziness or any other symptoms. Review of systems is otherwise negative. He has remained hemodynamically stable Objective Data Objective Data Vital Signs: Vital Signs Temp Pulse Resp BP Pulse Ox O2 Del Method O2 Flow Rate 98.0 F 77 18 163/59 H 96 Nasal Cannula 3 03/19/24 09:21 03/19/24 09:21 03/19/24 09:21 03/19/24 09:21 03/19/24 09:21 03/19/24 09:21 03/19/24 09:21 Oxygen Flow Rate (L/min) 3 Oxygen Delivery Method Nasal Cannula Weight: 203 lb 4.259 oz Body Mass Index (BMI) 28.3 Intake & Output: Intake and Output for Last 24 Hours 03/17/24 03/18/24 03/19/24 23:59 23:59 23:59 Intake Total 530 / 650 420 / 540 120 / 120 Output Total 835 / 1385 1835 / 1835 60 / 60 Balance -305 / -735 -1415 / -1295 60 / 60 Lab / Micro Data 03/18/24 08:25 03/18/24 08:25 Labs: Laboratory Results - last 24 hr 03/17/24 07:19: c-ANCA Antibody <1:20, Atypical p-ANCA <1:20, p-ANCA Antibody <1:20 03/17/24 13:50: Blood Type A POSITIVE, Antibody Screen NEGATIVE, Crossmatch See Detail 03/18/24 11:34: POC Glucose 183 H 03/18/24 21:27: POC Glucose 180 H Micro: Microbiology 03/16/24 01:25 Urine, Clean Catch Urine Culture - Final Enterococcus faecalis 03/17/24 15:14 Stool Stool Occult Blood (GREG) - Final 03/15/24 17:05 Stool Stool Occult Blood (GREG) - Final Radiography Diagnostic Testing: Radiology Impression Chest X-Ray 03/18/24 14:30 IMPRESSION: Interval worsening of diffuse bilateral lower lung streaky airspace disease from 3 days prior to include pulmonary edema or other infectious/inflammatory etiology. Recommend follow-up to resolution. Electronically Signed: Evan Hazel MD at 23:17 EDT , Physical Exam Const alert, oriented x3 and no apparent distress General Appearance: cooperative HEENT normocephalic, head/scalp atraumatic and moist oral mucous membranes Eyes PERRL and EOMs intact bilaterally Neck no lymphadenopathy, supple and no JVD Lymph Lymphatic: no lymphadenopathy noted and no lymphedema noted Resp Resp Narrative: mildly diminished breath sounds bibasally, no wheezes or crackles. On 3 L of oxygen by nasal canula Cardio regular rate, regular rhythm, S1 normal heart sound, S2 normal heart sound and no murmurs GI normal to inspection, nondistended, normoactive bowel sounds, soft to palpation, non-tender and non-distended Extremity normal capillary refill, no clubbing, cyanosis or edema and no calf tenderness General Extremity: no tenderness to palpation of joints or extremities Skin General Skin Exam: no breakdown Neuro CN's II-XII intact bilaterally, no focal motor deficits and no sensory deficits noted Coordination / Balance: [id number] test normal Motor Exam: strength 5/5 throughout and general weakness Psych thought process normal, cooperative and affect normal Appearance: appropriate Assessment & Plan Assessment/Plan (1) KALYN (acute kidney injury): (2) Non-ST elevation [place] (NSTEMI): PLAN: Plan #Nonstemi * patient was admitted with a complaint of chest pain. Chest pain was persistent even when having an echo * he was sent emergently to the [facility] where cardiac cath showed totally occluded RCA with high-grade left circumflex artery stenosis and moderate disease of the left anterior descending artery with left to right collaterals. * He had urgent PCI to the left circumflex artery * On aspirin and Brilinta as well as high intensity statin * #Acute on chronic anemia * Hb today is pending. * CXR showed interval worsening of diffuse bilateral lower lung streaky airspace * Iron profile does not show any evidence of iron deficiency anemia * Stool for occult blood ordered. * He is having hemoptysis today. * transfuse one unit of PRBC to shore up the Hb * #Hemoptysis * CXR showed interval worsening of diffuse bilateral lower lung streaky airspace disease * will treat for pneumonia as this may be the cause of his hemoptysis, based on the CXR findings. * now on IV ciprofloxacin for Enterococcal UTI. * will switch to IV levofloxacin which will cover UTI and also cover pneumonia * #Hypotension * resolved. * On Coreg 6.25mg bid. * #Hypothyroidism: on synthroid #Type 2 diabetes mellitus: on lantus 15 units bid. ISS. Accuchecks ACHS #UTI: urinalysis showed 3+ bacteria. on IV ceftriaxone. Urine cultures growing gram positive cocci, possibly Enterococci. Await speciation #KALYN on CKD III with hypernatremia * Cr and sodium pending. * Cr was 5.22 on admission, with baseline being ~3. * Nephrology on board. * He also received dye during the cath so that may worsen kidney function. * nephrology on board. * hold any nephrotoxic meds. * renal USG today showed no suspicious findings. * continue trending Cr #HFpEF: hold lasix due to worsening of kidney function. #Hypertension: continue to hold valsartan and HCTZ due to KALYN on BILL #Hyperlipidemia: on statin #Hypothyroidism: * TSH is elevated at 5.26 and free T4 is 0.75. * Will hold off on initiating treatment now, in light of his ultimately age and would benefit from thyroid function on outpatient basis to determine if treatment is needed. #GERD: on PPI DVT prophylaxis; SCDs. Charges/Coding Visit Charges Inpatient E&M: 58471 Subs Hosp L2
--- NOTE | 2024-03-19 09:53 | PCM.PN.CARD ---
Subjective Subjective Patient seen and evaluated. Objective Data Vital Signs: Vital Signs Temp Pulse Resp BP Pulse Ox O2 Del Method O2 Flow Rate 98.0 F 77 18 163/59 H 96 Nasal Cannula 3 03/19/24 09:21 03/19/24 09:21 03/19/24 09:21 03/19/24 09:21 03/19/24 09:21 03/19/24 09:21 03/19/24 09:21 Oxygen Flow Rate (L/min) 3 Oxygen Delivery Method Nasal Cannula Weight: 203 lb 4.259 oz Body Mass Index (BMI) 28.3 Intake & Output: Intake and Output for Last 24 Hours 03/17/24 03/18/24 03/19/24 23:59 23:59 23:59 Intake Total 530 / 650 420 / 540 120 / 120 Output Total 835 / 1385 1835 / 1835 60 / 60 Balance -305 / -735 -1415 / -1295 60 / 60 Lab / Micro Data 03/18/24 08:25 03/18/24 08:25 Labs: Laboratory Results - last 24 hr 03/17/24 07:19: c-ANCA Antibody <1:20, Atypical p-ANCA <1:20, p-ANCA Antibody <1:20 03/17/24 13:50: Blood Type A POSITIVE, Antibody Screen NEGATIVE, Crossmatch See Detail 03/18/24 11:34: POC Glucose 183 H 03/18/24 21:27: POC Glucose 180 H Micro: Microbiology 03/16/24 01:25 Urine, Clean Catch Urine Culture - Final Enterococcus faecalis Cardiology Labs/Tests Rhythm: EKG: ECHO: Stress Test: Cardiac Cath: PCI: CT Surgery: Holter monitor: EPS: PPM: CXR: Chest CT Scan: Radiography Diagnostic Testing: Radiology Impression Chest X-Ray 03/18/24 14:30 IMPRESSION: Interval worsening of diffuse bilateral lower lung streaky airspace disease from 3 days prior to include pulmonary edema or other infectious/inflammatory etiology. Recommend follow-up to resolution. Electronically Signed: Evan Hazel MD at 23:17 EDT , Physical Exam Const alert, oriented x3 and no apparent distress General Appearance: cooperative HEENT hearing grossly normal bilaterally Head and Scalp: atraumatic Eyes EOMs intact bilaterally Neck General: normal visual inspection Chest inspection of chest normal and palpation of chest normal Resp normal respiratory effort Auscultation: clear to auscultation bilaterally Cardio regular rate, regular rhythm, S1 normal heart sound and S2 normal heart sound Jugular Venous Distention: JVD GI normal to inspection, nondistended, normoactive bowel sounds Extremity normal capillary refill and no pedal edema Peripheral Pulses: Yes pulses 2+ throughout and femoral pulses present Skin no rashes or lesions noted Neuro oriented x3 and CN's II-XII intact bilaterally Psych Appearance: grossly normal and appropriate Assessment & Plan Assessment/Plan (1) Non-ST elevation [place] (NSTEMI): PLAN: Patient presents with chest discomfort and is noted to have a non-ST elevation myocardial infarction. Patient was taken to the cardiac catheterization lab and it demonstrated the following: Mildly calcified left anterior descending artery with 60% proximal stenosis and mild diffuse disease. First obtuse marginal branch with mild disease. Ostial circumflex with 95% high-grade stenosis. Codominant right coronary artery with a totally occluded proximal zone with [id number] collaterals. Preserved left ventricular systolic function. The patient is noted to be high risk and he underwent successful PCI of the proximal circumflex artery. This morning he is doing well his postop EKG looks stable and his creatinine has actually improved. His hemoglobin is however noted to be down. He may need a GI evaluation at some point but it is critical that his antiplatelet therapy is not discontinued. This especially in light of the location of the recently placed stent. (2) Hypertension: PLAN: Blood pressure appears to be under fair control. The plan will be to continue the current medical therapy. I would recommend that we discontinue the valsartan on account of the fact that he has significant renal dysfunction and substituted calcium channel vahe and a beta-vahe Perhaps the discontinuation of the valsartan has improved his creatinine.
[2024-03-19 09:59] LABS: Absolute Lymphocyte Count 1.36 X10^3/uL (0.83-4.51); Absolute Neutrophil Count 9.3 X10^3/uL (2.0-7.7); Basophil# 0.04 X10^3/uL; Basophil% 0.3 % (0-1); Eosinophil# 0.12 X10^3/uL; Hematocrit 28.5 % (40-54); Hemoglobin 9.3 g/dL (13.0-16.5); Lymphocyte # 1.36 X10^3/ul (0.83-4.51); Lymphocyte % 11.8 % (19-41); Mean Corp Hgb Conc 32.6 g/dL (32-36); Mean Platelet Vol. 11.1 fl (6.2-12.0); Monocyte% 6.1 % (0-10); NRBC Flagged by Analyzer 0 % (0-5); Neutrophil # 9.28 X10^3/uL (2.7-7.7); Neutrophil % 80.2 % (47-70); Platelet Count 150 K/mm3 (150-450); RBC Distribution Width CV 13.6 % (11.6-14.6); RBC Distribution Width SD 47.1 fl (35.1-43.9); White Blood Count 11.6 K/mm3 (4.4-11.0)
--- NOTE | 2024-03-19 10:00 | EKG12_ITS ---
Test Reason : AM EKG Blood Pressure : */* mmHG Vent. Rate : 71 BPM Atrial Rate : 71 BPM P-R Int : 250 ms QRS Dur : 90 ms QT Int : 382 ms P-R-T Axes : 7 -31 18 degrees QTcB Int : 415 ms Sinus rhythm with 1st degree A-V block Left axis deviation Minimal voltage criteria for LVH, may be normal variant ( R in aVL ) Abnormal ECG When compared with ECG of 18-Mar-2024 03:58, No significant change was found Confirmed by Keegan Boudreaux ([id number]), field map editor DENNIS RUBIO ([id number]) on 03/22/2024 9:27:41 AM Referred By: Confirmed By: Keegan Boudreaux
[2024-03-19 10:23] LABS: Anion Gap 6 (5-15); BUN 76 mg/dL (7-18); BUN/Creat Ratio 29.1 RATIO (10-20); Calcium,Total 9.1 mg/dL (8.5-10.1); Chloride 113 mmol/L (98-107); Creatinine, Serum 2.61 mg/dL (0.70-1.30); EST Glomerular Filtration Rate 25 mL/min (>60); Est Glom Filt Rate - Afr Amer 30 mL/min (>60); Estimated Creatinine Clearance 24.89 ml/min; Glucose 187 mg/dL (74-106); Potassium 4.3 mmol/L (3.5-5.1); Sodium Level 146 mmol/L (136-145)
[2024-03-19] MEDS: amLODIPine 5 MG Tablet PO (10:31)
[2024-03-19] MEDS: Insulin Glargine-YFGN 100 UNIT/ML Pen 15 UNIT SC ×2 (10:31→21:02)
[2024-03-19 10:40] VITALS: O2SAT 91
[2024-03-19 15:15] VITALS: BP 153/57; PULSE 72; RESP 20; TEMP 36.8; O2SAT 99
[2024-03-19 19:23] VITALS: BP 135/67; PULSE 83; RESP 15; TEMP 36.7; O2SAT 100
[2024-03-19] MEDS: Senna/Docusate Sodium 1 Tablet 2 TABLET PO (21:02)
[2024-03-19] MEDS: MELATONIN 10 MG TABLET PO (21:04)
[2024-03-20 01:05] VITALS: BP 129/82; PULSE 87; RESP 16; TEMP 36.7; O2SAT 99
[2024-03-20] MEDS: Levothyroxine 25 MCG TABLET PO (05:26)
[2024-03-20 05:27] VITALS: BMI 29.2
[2024-03-20 05:54] LABS: Absolute Lymphocyte Count 1.61 X10^3/uL (0.83-4.51); Absolute Neutrophil Count 8.6 X10^3/uL (2.0-7.7); Basophil# 0.03 X10^3/uL; Basophil% 0.3 % (0-1); Eosinophil# 0.27 X10^3/uL; Eosinophils% 2.4 % (0-5); Hematocrit 27.4 % (40-54); Hemoglobin 8.9 g/dL (13.0-16.5); Lymphocyte # 1.61 X10^3/ul (0.83-4.51); Lymphocyte % 14.1 % (19-41); Mean Corp Hgb Conc 32.5 g/dL (32-36); Mean Corpuscular Hgb 30.9 pg (27.0-32.0); Mean Corpuscular Volume 95.1 fL (80-94); Mean Platelet Vol. 10.6 fl (6.2-12.0); Monocyte# 0.77 X10^3/uL; Monocyte% 6.8 % (0-10); NRBC Flagged by Analyzer 0 % (0-5); Neutrophil # 8.63 X10^3/uL (2.7-7.7); Neutrophil % 75.8 % (47-70); Platelet Count 158 K/mm3 (150-450); RBC Distribution Width CV 13.6 % (11.6-14.6); RBC Distribution Width SD 47.2 fl (35.1-43.9); Red Blood Count 2.88 M/mm3 (4.6-6.2); White Blood Count 11.4 K/mm3 (4.4-11.0)
[2024-03-20 06:54] LABS: Anion Gap 3 (5-15); BUN 64 mg/dL (7-18); BUN/Creat Ratio 28.2 RATIO (10-20); Calcium,Total 9.2 mg/dL (8.5-10.1); Chloride 114 mmol/L (98-107); Creatinine, Serum 2.27 mg/dL (0.70-1.30); EST Glomerular Filtration Rate 29 mL/min (>60); Est Glom Filt Rate - Afr Amer 36 mL/min (>60); Estimated Creatinine Clearance 29.05 ml/min; Glucose 141 mg/dL (74-106); Potassium 4.3 mmol/L (3.5-5.1); Sodium Level 147 mmol/L (136-145)
[2024-03-20 07:15] VITALS: O2SAT 96
[2024-03-20] MEDS: Dextrose 5%-Water (1000mL Bag) 1,000 ML 75 ML IV (08:11)
[2024-03-20 08:51] VITALS: BP 153/65; PULSE 70; RESP 18; TEMP 36.7; O2SAT 96
[2024-03-20] MEDS: Aspirin E.C. 81 MG Tablet PO (08:53)
[2024-03-20] MEDS: TICAGRELOR 90 MG TABLET PO ×2 (08:53→20:40)
[2024-03-20] MEDS: Carvedilol 6.25 MG Tablet PO ×2 (08:53→20:40)
[2024-03-20] MEDS: Insulin Glargine-YFGN 100 UNIT/ML Pen 15 UNIT SC ×2 (08:53→20:40)
[2024-03-20] MEDS: amLODIPine 5 MG Tablet PO (08:53)
[2024-03-20] MEDS: Ascorbic Acid 500 MG Tablet PO (08:53)
[2024-03-20] MEDS: levoFLOXacin IV 500 MG/100 ML BAG 100 MG IV (08:55)
--- NOTE | 2024-03-20 09:50 | PN_ITS ---
Subjective Subjective Patient seen and examined. He had no active complaints. He still says he has some hemoptysis, but on reviewing his sputum, he has mainly clear sputum with some scant blood traces. He is on 2L of oxygen. Review of systems is otherwise negative. Objective Data Objective Data Vital Signs: Vital Signs Temp Pulse Resp BP Pulse Ox O2 Del Method O2 Flow Rate 98.0 F 70 18 153/65 H 96 Nasal Cannula 2 03/20/24 08:51 03/20/24 08:51 03/20/24 08:51 03/20/24 08:51 03/20/24 08:51 03/20/24 08:51 03/20/24 08:51 Oxygen Flow Rate (L/min) 2 Oxygen Delivery Method Nasal Cannula Weight: 210 lb 1.608 oz Body Mass Index (BMI) 29.2 Intake & Output: Intake and Output for Last 24 Hours 03/18/24 03/19/24 03/20/24 23:59 23:59 22:59 Intake Total 420 / 540 320 / 440 295 / 295 Output Total 1835 / 1835 1060 / 1060 400 / 400 Balance -1415 / -1295 -740 / -620 -105 / -105 Lab / Micro Data 03/20/24 05:25 03/20/24 05:25 Labs: Laboratory Results - last 24 hr 03/20/24 05:25: WBC 11.4 H, RBC 2.88 L, Hgb 8.9 L, Hct 27.4 L, MCV 95.1 H, MCH 30.9, MCHC 32.5, RDW Std Deviation 47.2 H, RDW Coeff of Elmer 13.6, Plt Count 158, MPV 10.6, Immature Gran % (Auto) 0.600, Neut % (Auto) 75.8 H, Lymph % (Auto) 14.1 L, [place] % (Auto) 6.8, Eos % (Auto) 2.4, Baso % (Auto) 0.3, Absolute Neuts (auto) 8.6 H, Absolute Lymphs (auto) 1.61, Nucleated RBC % 0, Sodium 147 H, Potassium 4.3, Chloride 114 H, Carbon Dioxide 30.0, Anion Gap 3 L, BUN 64 H, C reatinine 2.27 H, Estim Creat Clear Calc 29.05, Est GFR (MDRD) Af Amer 36 L, Est GFR (MDRD) Non-Af 29 L, BUN/Creatinine Ratio 28.2 H, Glucose 141 H, Calcium 9.2 Micro: Microbiology 03/16/24 01:25 Urine, Clean Catch Urine Culture - Final Enterococcus faecalis 03/17/24 15:14 Stool Stool Occult Blood (GREG) - Final 03/15/24 17:05 Stool Stool Occult Blood (GREG) - Final Physical Exam Const alert, oriented x3 and no apparent distress General Appearance: cooperative HEENT normocephalic, head/scalp atraumatic and moist oral mucous membranes Eyes PERRL and EOMs intact bilaterally Neck no lymphadenopathy, supple and no JVD Lymph Lymphatic: no lymphadenopathy noted and no lymphedema noted Resp Resp Narrative: mildly diminished breath sounds bibasally, no wheezes or crackles. On 3 L of oxygen by nasal canula Cardio regular rate, regular rhythm, S1 normal heart sound, S2 normal heart sound and no murmurs GI normal to inspection, nondistended, normoactive bowel sounds, soft to palpation, non-tender and non-distended Extremity normal capillary refill, no clubbing, cyanosis or edema and no calf tenderness General Extremity: no tenderness to palpation of joints or extremities Skin General Skin Exam: no breakdown Neuro CN's II-XII intact bilaterally, no focal motor deficits and no sensory deficits noted Coordination / Balance: [id number] test normal Motor Exam: strength 5/5 throughout and general weakness Psych thought process normal, cooperative and affect normal Appearance: appropriate Assessment & Plan Assessment/Plan (1) KALYN (acute kidney injury): (2) Non-ST elevation [place] (NSTEMI): PLAN: Plan #Nonstemi * patient was admitted with a complaint of chest pain. Chest pain was persistent even when having an echo * he was sent emergently to the [facility] where cardiac cath showed totally occluded RCA with high-grade left circumflex artery stenosis and moderate disease of the left anterior descending artery with left to right collaterals. * He had urgent PCI to the left circumflex artery * On aspirin and Brilinta as well as high intensity statin * #Acute on chronic anemia * Hb today is 8.9. * CXR showed interval worsening of diffuse bilateral lower lung streaky airspace * Iron profile does not show any evidence of iron deficiency anemia * transfuse one unit of PRBC to shore up the Hb * #Hemoptysis * CXR showed interval worsening of diffuse bilateral lower lung streaky airspace disease * will treat for pneumonia as this may be the cause of his hemoptysis, based on the CXR findings. * now on IV levofloxacin for presumptive pneumonia * hemoptysis is improving. * #Hypotension * resolved. * #Hypothyroidism: on synthroid #Type 2 diabetes mellitus: on lantus 15 units bid. ISS. Accuchecks ACHS #UTI: * urinalysis showed 3+ bacteria. urine cultures growing Enterococcus. * Now on IV levofloxacin to cover both UTI and probable pneumonia #KALYN on CKD III with hypernatremia * sodium today is 1.47. Cr is however now down to 2.27 * nephrology on board. * hold any nephrotoxic meds. * renal USG showed no suspicious findings. * continue trending Cr * hydrage gently with IV D5W to being down sodium, before it worsens. #HFpEF: hold lasix due to worsening of kidney function. #Hypertension: continue to hold valsartan and HCTZ due to KALYN on BILL #Hyperlipidemia: on statin #Hypothyroidism: * TSH is elevated at 5.26 and free T4 is 0.75. * on synthroid already. * will hold off on adjusting dose of synthroid. TO have repeat thyroid function tests on outpatient basis * #GERD: on PPI DVT prophylaxis; SCDs. Disposition: awaiting placement Charges/Coding Visit Charges Inpatient E&M: 88494 Subs Hosp L2
--- NOTE | 2024-03-20 12:36 | PCM.PN.CARD ---
Subjective Subjective Patient seen and evaluated. Doing well other than occasional streaks of blood in his sputum Objective Data Vital Signs: Vital Signs Temp Pulse Resp BP Pulse Ox O2 Del Method O2 Flow Rate 98.0 F 70 18 153/65 H 96 Nasal Cannula 2 03/20/24 08:51 03/20/24 08:51 03/20/24 08:51 03/20/24 08:51 03/20/24 08:51 03/20/24 08:51 03/20/24 08:51 Oxygen Flow Rate (L/min) 2 Oxygen Delivery Method Nasal Cannula Weight: 210 lb 1.608 oz Body Mass Index (BMI) 29.2 Intake & Output: Intake and Output for Last 24 Hours 03/18/24 03/19/24 03/20/24 23:59 23:59 22:59 Intake Total 420 / 540 320 / 440 395 / 395 Output Total 1835 / 1835 1060 / 1060 400 / 400 Balance -1415 / -1295 -740 / -620 -5 / -5 Lab / Micro Data 03/20/24 05:25 03/20/24 05:25 Labs: Laboratory Results - last 24 hr 03/20/24 05:25: WBC 11.4 H, RBC 2.88 L, Hgb 8.9 L, Hct 27.4 L, MCV 95.1 H, MCH 30.9, MCHC 32.5, RDW Std Deviation 47.2 H, RDW Coeff of Elmer 13.6, Plt Count 158, MPV 10.6, Immature Gran % (Auto) 0.600, Neut % (Auto) 75.8 H, Lymph % (Auto) 14.1 L, [place] % (Auto) 6.8, Eos % (Auto) 2.4, Baso % (Auto) 0.3, Absolute Neuts (auto) 8.6 H, Absolute Lymphs (auto) 1.61, Nucleated RBC % 0, Sodium 147 H, Potassium 4.3, Chloride 114 H, Carbon Dioxide 30.0, Anion Gap 3 L, BUN 64 H, Creatinine 2.27 H, Estim Creat Clear Calc 29.05, Est GFR (MDRD) Af Amer 36 L, Est GFR (MDRD) Non-Af 29 L, BUN/Creatinine Ratio 28.2 H, Glucose 141 H, Calcium 9.2 Cardiology Labs/Tests 03/20/24 05:25: WBC 11.4 H, RBC 2.88 L, Hgb 8.9 L, Hct 27.4 L, MCV 95.1 H, MCH 30.9, MCHC 32.5, Plt Count 158, MPV 10.6, Immature Gran % (Auto) 0.600, Neut % (Auto) 75.8 H, Lymph % (Auto) 14.1 L, [place] % (Auto) 6.8, Eos % (Auto) 2.4, Baso % (Auto) 0.3, Absolute Neuts (auto) 8.6 H, Nucleated RBC % 0, Sodium 147 H, Potassium 4.3, Chloride 114 H, Carbon Dioxide 30.0, Anion Gap 3 L, BUN 64 H, Creatinine 2.27 H, Est GFR (MDRD) Af Amer 36 L, Est GFR (MDRD) Non-Af 29 L, BUN/Creatinine Ratio 28.2 H, Glucose 141 H, Calcium 9.2 Rhythm: EKG: ECHO: Stress Test: Cardiac Cath: PCI: CT Surgery: Holter monitor: EPS: PPM: CXR: Chest CT Scan: Physical Exam Const alert, oriented x3 and no apparent distress General Appearance: cooperative HEENT normocephalic, head/scalp atraumatic and moist oral mucous membranes Eyes PERRL and EOMs intact bilaterally Neck no lymphadenopathy, supple and no JVD Lymph Lymphatic: no lymphadenopathy noted and no lymphedema noted Resp Resp Narrative: mildly diminished breath sounds bibasally, no wheezes or crackles. On 3 L of oxygen by nasal canula Cardio regular rate, regular rhythm, S1 normal heart sound, S2 normal heart sound and no murmurs GI normal to inspection, nondistended, normoactive bowel sounds, soft to palpation, non-tender and non-distended Extremity normal capillary refill, no clubbing, cyanosis or edema and no calf tenderness General Extremity: no tenderness to palpation of joints or extremities Skin General Skin Exam: no breakdown Neuro CN's II-XII intact bilaterally, no focal motor deficits and no sensory deficits noted Coordination / Balance: [id number]-[id number] test normal Motor Exam: strength 5/5 throughout and general weakness Psych thought process normal, cooperative and affect normal Appearance: appropriate Assessment & Plan Assessment/Plan (1) Non-ST elevation [place] (NSTEMI): PLAN: Patient presents with chest discomfort and is noted to have a non-ST elevation myocardial infarction. Patient was taken to the cardiac catheterization lab and it demonstrated the following: Mildly calcified left anterior descending artery with 60% proximal stenosis and mild diffuse disease. First obtuse marginal branch with mild disease. Ostial circumflex with 95% high-grade stenosis. Codominant right coronary artery with a totally occluded proximal zone with [id number] collaterals. Preserved left ventricular systolic function. The patient is noted to be high risk and he underwent successful PCI of the proximal circumflex artery. This morning he is doing well his postop EKG looks stable and his creatinine has actually improved. His hemoglobin is however noted to be down. He may need a GI evaluation at some point but it is critical that his antiplatelet therapy is not discontinued. This especially in light of the location of the recently placed stent. Will sign off at this time please reconsult as necessary. (2) Hypertension: PLAN: Blood pressure appears to be under fair control. The plan will be to continue the current medical therapy. I would recommend that we discontinue the valsartan on account of the fact that he has significant renal dysfunction and substituted calcium channel vahe and a beta-vahe Perhaps the discontinuation of the valsartan has improved his creatinine.
[2024-03-20 14:50] VITALS: BP 150/63; PULSE 65; RESP 18; TEMP 36.5; O2SAT 97
[2024-03-20] MEDS: Tamsulosin HCl 0.4 MG Capsule PO (16:26)
--- NOTE | 2024-03-20 18:34 | PN.RENAL_ITS ---
Subjective Subjective No acute events overnight, feels better Still intermittently spitting up blood Objective Data Objective Data Vital Signs: Vital Signs Temp Pulse Resp BP Pulse Ox O2 Del Method O2 Flow Rate 97.7 F L 65 18 150/63 H 97 Nasal Cannula 2 03/20/24 14:50 03/20/24 14:50 03/20/24 14:50 03/20/24 14:50 03/20/24 14:50 03/20/24 14:50 03/20/24 14:50 Oxygen Flow Rate (L/min) 2 Oxygen Delivery Method Nasal Cannula Weight: 95.3 kg Body Mass Index (BMI) 29.2 Intake & Output: Intake and Output for Last 24 Hours 03/18/24 03/19/24 03/20/24 23:59 23:59 22:59 Intake Total 420 / 540 320 / 440 395 / 395 Output Total 1835 / 1835 1060 / 1060 400 / 400 Balance -1415 / -1295 -740 / -620 -5 / -5 Lab / Micro Data 03/20/24 05:25 03/20/24 05:25 Labs: Laboratory Results - last 24 hr 03/20/24 05:25: WBC 11.4 H, RBC 2.88 L, Hgb 8.9 L, Hct 27.4 L, MCV 95.1 H, MCH 30.9, MCHC 32.5, RDW Std Deviation 47.2 H, RDW Coeff of Elmer 13.6, Plt Count 158, MPV 10.6, Immature Gran % (Auto) 0.600, Neut % (Auto) 75.8 H, Lymph % (Auto) 14.1 L, [place] % (Auto) 6.8, Eos % (Auto) 2.4, Baso % (Auto) 0.3, Absolute Neuts (auto) 8.6 H, Absolute Lymphs (auto) 1.61, Nucleated RBC % 0, Sodium 147 H, Potassium 4.3, Chloride 114 H, Carbon Dioxide 30.0, Anion Gap 3 L, BUN 64 H, C reatinine 2.27 H, Estim Creat Clear Calc 29.05, Est GFR (MDRD) Af Amer 36 L, Est GFR (MDRD) Non-Af 29 L, BUN/Creatinine Ratio 28.2 H, Glucose 141 H, Calcium 9.2 Micro: Microbiology 03/16/24 01:25 Urine, Clean Catch Urine Culture - Final Enterococcus faecalis 03/17/24 15:14 Stool Stool Occult Blood (GREG) - Final 03/15/24 17:05 Stool Stool Occult Blood (GREG) - Final Physical Exam Narrative Alert awake oriented x 3 no obvious distress no pallor no icterus no JVD s1s2 no murmurs lungs clear abdomen soft no organomegaly no edema no cyanosis Assessment & Plan Assessment/Plan (1) KALYN (acute kidney injury): PLAN: baseline cr around 2.0 or so. several fluctuations due to ongoing issues. renal US is ok. UA shows microscopic hematuria. We have sent serologies. -Serum creatinine markedly improved to 2.27 mg/dL with improvement azotemic to 64 with volume expansion. -Can discontinue IV fluids tomorrow -His ankles are negative, anti-GBM is still pending -Renal panel in the morning (2) CKD (chronic kidney disease), stage IV:
[2024-03-20 20:30] VITALS: BP 121/51; PULSE 71; RESP 18; TEMP 36.2; O2SAT 98
[2024-03-20] MEDS: MELATONIN 10 MG TABLET PO (20:40)
[2024-03-20] MEDS: Senna/Docusate Sodium 1 Tablet 2 TABLET PO (20:40)
[2024-03-20 21:54] LABS: Bedside Glucose 194 mg/dL (74-106)
[2024-03-21 02:20] VITALS: BP 150/65; PULSE 66; RESP 17; TEMP 36.2; O2SAT 97
[2024-03-21 02:26] VITALS: BMI 29.4
[2024-03-21] MEDS: Levothyroxine 25 MCG TABLET PO (05:37)
[2024-03-21 06:07] LABS: Absolute Neutrophil Count 7.3 X10^3/uL (2.0-7.7); Basophil# 0.03 X10^3/uL; Basophil% 0.3 % (0-1); Eosinophil# 0.33 X10^3/uL; Eosinophils% 3.3 % (0-5); Hematocrit 25.6 % (40-54); Hemoglobin 8.3 g/dL (13.0-16.5); Lymphocyte % 14.2 % (19-41); Mean Corp Hgb Conc 32.4 g/dL (32-36); Mean Corpuscular Hgb 30.9 pg (27.0-32.0); Mean Corpuscular Volume 95.2 fL (80-94); Mean Platelet Vol. 10.5 fl (6.2-12.0); Monocyte% 7.1 % (0-10); NRBC Flagged by Analyzer 0 % (0-5); Neutrophil # 7.34 X10^3/uL (2.7-7.7); Neutrophil % 74.3 % (47-70); Platelet Count 143 K/mm3 (150-450); RBC Distribution Width CV 13.4 % (11.6-14.6); RBC Distribution Width SD 46.4 fl (35.1-43.9); Red Blood Count 2.69 M/mm3 (4.6-6.2); White Blood Count 9.9 K/mm3 (4.4-11.0)
[2024-03-21 06:43] LABS: Anion Gap 5 (5-15); BUN 54 mg/dL (7-18); BUN/Creat Ratio 32.5 RATIO (10-20); Calcium,Total 8.6 mg/dL (8.5-10.1); Chloride 111 mmol/L (98-107); Creatinine, Serum 1.66 mg/dL (0.70-1.30); EST Glomerular Filtration Rate 42 mL/min (>60); Est Glom Filt Rate - Afr Amer 51 mL/min (>60); Glucose 144 mg/dL (74-106); Potassium 4.1 mmol/L (3.5-5.1); Sodium Level 142 mmol/L (136-145)
[2024-03-21] MEDS: 0.9% Saline Lock 10 ML Syringe IV ×2 (06:45→09:11)
[2024-03-21] MEDS: proCHLORPERazine 10 MG/2 ML Vial 5 MG IV (06:45)
[2024-03-21 09:06] VITALS: BP 146/58; PULSE 75; RESP 18; TEMP 36.4; O2SAT 97
[2024-03-21] MEDS: Carvedilol 6.25 MG Tablet PO ×2 (09:10→21:19)
[2024-03-21] MEDS: amLODIPine 5 MG Tablet PO (09:10)
[2024-03-21] MEDS: TICAGRELOR 90 MG TABLET PO ×2 (09:10→21:19)
[2024-03-21] MEDS: Ascorbic Acid 500 MG Tablet PO (09:10)
[2024-03-21] MEDS: Senna/Docusate Sodium 1 Tablet 2 TABLET PO ×2 (09:10→21:20)
[2024-03-21] MEDS: Aspirin E.C. 81 MG Tablet PO (09:10)
[2024-03-21] MEDS: levoFLOXacin IV 250 MG/50 ML BAG 50 MG IV (09:11)
[2024-03-21] MEDS: Insulin Glargine-YFGN 100 UNIT/ML Pen 15 UNIT SC ×2 (09:11→21:18)
[2024-03-21 09:34] LABS: Bedside Glucose 187 mg/dL (74-106)
[2024-03-21 09:41] VITALS: O2SAT 95
--- NOTE | 2024-03-21 09:41 | CASEMGMT ---
TCU can accept patient pending insurance approval. CEASAR met with patient. Introduced self and role at [facility]. SW notified patient that [facility]CU is able to take him when he is medically ready. Patient thanked CEASAR for the update. Plan: d/c to [facility]CU when medically ready and pending insurance approval. Waleska BURGESS
--- NOTE | 2024-03-21 10:52 | PN_ITS ---
Subjective Subjective Patient seen and examined. He is still having some scant hemoptysis. He says he is feeling better. He denies any fever or chills, chest pain, palpitations, dizziness, nausea or vomiting. Review of systems otherwise negative. Objective Data Objective Data Vital Signs: Vital Signs Temp Pulse Resp BP Pulse Ox O2 Del Method O2 Flow Rate 97.6 F L 75 18 146/58 H 95 Nasal Cannula 2 03/21/24 09:06 03/21/24 09:06 03/21/24 09:06 03/21/24 09:06 03/21/24 09:41 03/21/24 09:06 03/21/24 10:01 Oxygen Flow Rate (L/min) 2 Oxygen Delivery Method Nasal Cannula Weight: 210 lb 15.718 oz Body Mass Index (BMI) 29.4 Intake & Output: Intake and Output for Last 24 Hours 03/19/24 03/20/24 03/21/24 23:59 22:59 23:59 Intake Total 320 / 440 1340 / 1340 Output Total 1060 / 1060 1350 / 1350 500 / 500 Balance -740 / -620 -10 / -10 -500 / -500 Lab / Micro Data 03/21/24 05:34 03/21/24 05:34 Labs: Laboratory Results - last 24 hr 03/20/24 20:38: POC Glucose 194 H 03/21/24 05:34: WBC 9.9, RBC 2.69 L, Hgb 8.3 L, Hct 25.6 L, MCV 95.2 H, MCH 30.9, MCHC 32.4, RDW Std Deviation 46.4 H, RDW Coeff of Elmer 13.4, Plt Count 143 L, MPV 10.5, Immature Gran % (Auto) 0.800, Neut % (Auto) 74.3 H, Lymph % (Auto) 14.2 L, [place] % (Auto) 7.1, Eos % (Auto) 3.3, Baso % (Auto) 0.3, Absolute Neuts (auto) 7.3, Absolute Lymphs (auto) 1.40, Nucleated RBC % 0, Sodium 142, Potassium 4.1, Chloride 111 H, Carbon Dioxide 26.0, Anion Gap 5, BUN 54 H, C reatinine 1.66 H, Estim Creat Clear Calc 39.80, Est GFR (MDRD) Af Amer 51 L, Est GFR (MDRD) Non-Af 42 L, BUN/Creatinine Ratio 32.5 H, Glucose 144 H, Calcium 8.6 03/21/24 09:08: POC Glucose 187 H Micro: Microbiology 03/16/24 01:25 Urine, Clean Catch Urine Culture - Final Enterococcus faecalis 03/17/24 15:14 Stool Stool Occult Blood (GREG) - Final 03/15/24 17:05 Stool Stool Occult Blood (GREG) - Final Physical Exam Const alert, oriented x3 and no apparent distress General Appearance: cooperative HEENT normocephalic, head/scalp atraumatic and moist oral mucous membranes Eyes PERRL and EOMs intact bilaterally Neck no lymphadenopathy, supple and no JVD Lymph Lymphatic: no lymphadenopathy noted and no lymphedema noted Resp Resp Narrative: mildly diminished breath sounds bibasally, no wheezes or crackles. On 2 L of oxygen by nasal canula Cardio regular rate, regular rhythm, S1 normal heart sound, S2 normal heart sound and no murmurs GI normal to inspection, nondistended, normoactive bowel sounds, soft to palpation, non-tender and non-distended Extremity normal capillary refill, no clubbing, cyanosis or edema and no calf tenderness General Extremity: no tenderness to palpation of joints or extremities Skin General Skin Exam: no breakdown Neuro CN's II-XII intact bilaterally, no focal motor deficits and no sensory deficits noted Coordination / Balance: [id number] test normal Motor Exam: strength 5/5 throughout and general weakness Psych thought process normal, cooperative and affect normal Appearance: appropriate Assessment & Plan Assessment/Plan (1) KALYN (acute kidney injury): (2) Non-ST elevation [place] (NSTEMI): PLAN: Plan #Nonstemi * patient was admitted with a complaint of chest pain. Chest pain was persistent even when having an echo * he was sent emergently to the starch factory laborer where cardiac cath showed totally occluded RCA with high-grade left circumflex artery stenosis and moderate disease of the left anterior descending artery with left to right collaterals. * He had urgent PCI to the left circumflex artery * On aspirin and Brilinta as well as high intensity statin * #Acute on chronic anemia * Hb today is 8.3. * CXR showed interval worsening of diffuse bilateral lower lung streaky airspace * Iron profile does not show any evidence of iron deficiency anemia * transfuse one unit of PRBC to shore up the Hb * #Hemoptysis * CXR showed interval worsening of diffuse bilateral lower lung streaky airspace disease * will treat for pneumonia as this may be the cause of his hemoptysis, based on the CXR findings. * on IV levofloxacin for presumptive pneumonia * still having some scant hemoptysis * I think it is reasonable to consult pulmonology due to the persistent hemoptysis * #Hypotension * resolved. * #Hypothyroidism: on synthroid #Type 2 diabetes mellitus: on lantus 15 units bid. ISS. Accuchecks ACHS #UTI: * urinalysis showed 3+ bacteria. urine cultures growing Enterococcus. * Now on IV levofloxacin to cover both UTI and probable pneumonia #KALYN on CKD III with hypernatremia * CR is down to 1.66. Sodium is also donw to 142. * nephrology on board. * hold any nephrotoxic meds. * renal USG showed no suspicious findings. * continue trending Cr * #HFpEF: hold lasix due to worsening of kidney function. #Hypertension: continue to hold valsartan and HCTZ due to KALYN on BILL #Hyperlipidemia: on statin #Hypothyroidism: * TSH is elevated at 5.26 and free T4 is 0.75. * on synthroid already. * will hold off on adjusting dose of synthroid. TO have repeat thyroid function tests on outpatient basis * #GERD: on PPI DVT prophylaxis; SCDs. Disposition: awaiting placement Charges/Coding Visit Charges Inpatient E&M: 63959 Subs Hosp L2
--- NOTE | 2024-03-21 10:54 | CASEMGMT ---
Patient was approved for [facility] starting tomorrow. Plan: d/c to [facility] when medically ready. Insurance has approved patient starting 03-22. Waleska BURGESS
--- NOTE | 2024-03-21 12:04 | PCM.PN.REN ---
Subjective Subjective Resting in bed. No complaints. No overnight events. Objective Data Objective Data Vital Signs: Vital Signs Temp Pulse Resp BP Pulse Ox O2 Del Method O2 Flow Rate 97.6 F L 75 18 146/58 H 95 Nasal Cannula 2 03/21/24 09:06 03/21/24 09:06 03/21/24 09:06 03/21/24 09:06 03/21/24 09:41 03/21/24 09:06 03/21/24 10:01 Oxygen Flow Rate (L/min) 2 Oxygen Delivery Method Nasal Cannula Weight: 95.7 kg Body Mass Index (BMI) 29.4 Intake & Output: Intake and Output for Last 24 Hours 03/19/24 03/20/24 03/21/24 23:59 22:59 23:59 Intake Total 320 / 440 1340 / 1340 50 / 50 Output Total 1060 / 1060 1350 / 1350 500 / 500 Balance -740 / -620 -10 / -10 -450 / -450 Lab / Micro Data 03/21/24 05:34 03/21/24 05:34 Labs: Laboratory Results - last 24 hr 03/20/24 20:38: POC Glucose 194 H 03/21/24 05:34: WBC 9.9, RBC 2.69 L, Hgb 8.3 L, Hct 25.6 L, MCV 95.2 H, MCH 30.9, MCHC 32.4, RDW Std Deviation 46.4 H, RDW Coeff of Elmer 13.4, Plt Count 143 L, MPV 10.5, Immature Gran % (Auto) 0.800, Neut % (Auto) 74.3 H, Lymph % (Auto) 14.2 L, [place] % (Auto) 7.1, Eos % (Auto) 3.3, Baso % (Auto) 0.3, Absolute Neuts (auto) 7.3, Absolute Lymphs (auto) 1.40, Nucleated RBC % 0, Sodium 142, Potassium 4.1, Chloride 111 H, Carbon Dioxide 26.0, Anion Gap 5, BUN 54 H, Creatinine 1.66 H, Estim Creat Clear Calc 39.80, Est GFR (MDRD) Af Amer 51 L, Est GFR (MDRD) Non-Af 42 L, BUN/Creatinine Ratio 32.5 H, Glucose 144 H, Calcium 8.6 03/21/24 09:08: POC Glucose 187 H Micro: Microbiology 03/16/24 01:25 Urine, Clean Catch Urine Culture - Final Enterococcus faecalis 03/17/24 15:14 Stool Stool Occult Blood (GREG) - Final 03/15/24 17:05 Stool Stool Occult Blood (GREG) - Final Physical Exam Narrative Alert awake oriented x 3 no obvious distress s1s2 no murmurs lungs clear abdomen soft no edema white with clear yellow urine Assessment & Plan Assessment/Plan (1) KALYN (acute kidney injury): PLAN: baseline cr around 2.0 or so. several fluctuations due to ongoing issues. renal US is ok. UA shows microscopic hematuria. We have sent serologies. -KALYN on CKD; KALYN possibly from cardiorenal physiology. Serum creatinine 5.22 on 03/15 (this was peak). Renal function markedly improved, SCr 1.66 mg/dL with improvement azotemic to 54 (148 on 03/15) with volume expansion. Good urine output. Off IVFs. -ANCAs negative. SPEP and anti-GBM is still pending. UPC ratio 697mg/g. (2) CKD (chronic kidney disease), stage IV:
[2024-03-21 16:01] VITALS: BP 128/61; PULSE 65; RESP 18; TEMP 36.3; O2SAT 98
[2024-03-21] MEDS: Tamsulosin HCl 0.4 MG Capsule PO (16:02)
[2024-03-21] MEDS: Glucerna Shake 120 ML LIQUID PO (16:02)
[2024-03-21 20:08] LABS: Albumin 3.3 g/dL (2.9-4.4); Alpha-1-Globulins 0.2 g/dL (0.0-0.4); Alpha-2-Globulins 0.7 g/dL (0.4-1.0); Anti-Glomerular Basement Memb < 0.2 units (0.0-0.9); Gamma Globulin 1.3 g/dL (0.4-1.8); Immunoglobulin A 365 mg/dL (61-437); Immunoglobulin G 1404 mg/dL (603-1613); Immunoglobulin M 128 mg/dL (15-143); PROEL- TOTAL PROTEIN 6.5 g/dL (6.0-8.5)
[2024-03-21 21:16] VITALS: BP 129/59; PULSE 74; RESP 18; TEMP 37.2; O2SAT 98
[2024-03-21] MEDS: MELATONIN 10 MG TABLET PO (21:19)
[2024-03-21 21:39] LABS: Bedside Glucose 197 mg/dL (74-106)
[2024-03-22 04:04] VITALS: BP 148/60; PULSE 66; RESP 18; TEMP 36.7; O2SAT 98
[2024-03-22] MEDS: Levothyroxine 25 MCG TABLET PO (05:57)
[2024-03-22 06:15] LABS: Absolute Lymphocyte Count 1.49 X10^3/uL (0.83-4.51); Absolute Neutrophil Count 7.4 X10^3/uL (2.0-7.7); Basophil# 0.04 X10^3/uL; Basophil% 0.4 % (0-1); Eosinophil# 0.25 X10^3/uL; Eosinophils% 2.5 % (0-5); Hematocrit 26.6 % (40-54); Hemoglobin 8.5 g/dL (13.0-16.5); Lymphocyte # 1.49 X10^3/ul (0.83-4.51); Lymphocyte % 14.9 % (19-41); Mean Corpuscular Hgb 30.6 pg (27.0-32.0); Mean Corpuscular Volume 95.7 fL (80-94); Mean Platelet Vol. 10.3 fl (6.2-12.0); NRBC Flagged by Analyzer 0 % (0-5); Neutrophil # 7.41 X10^3/uL (2.7-7.7); Neutrophil % 74.2 % (47-70); Platelet Count 152 K/mm3 (150-450); RBC Distribution Width CV 13.4 % (11.6-14.6); RBC Distribution Width SD 46.7 fl (35.1-43.9); Red Blood Count 2.78 M/mm3 (4.6-6.2)
[2024-03-22 06:37] LABS: Anion Gap 4 (5-15); BUN 52 mg/dL (7-18); BUN/Creat Ratio 25.4 RATIO (10-20); Calcium,Total 8.8 mg/dL (8.5-10.1); Chloride 113 mmol/L (98-107); Creatinine, Serum 2.05 mg/dL (0.70-1.30); EST Glomerular Filtration Rate 33 mL/min (>60); Est Glom Filt Rate - Afr Amer 40 mL/min (>60); Estimated Creatinine Clearance 32.23 ml/min; Glucose 137 mg/dL (74-106); Potassium 4.2 mmol/L (3.5-5.1); Sodium Level 143 mmol/L (136-145)
[2024-03-22] MEDS: Carvedilol 6.25 MG Tablet PO ×2 (09:03→21:54)
[2024-03-22] MEDS: TICAGRELOR 90 MG TABLET PO ×2 (09:03→21:54)
[2024-03-22] MEDS: Glucerna Shake 120 ML LIQUID PO ×3 (09:03→16:47)
[2024-03-22] MEDS: Aspirin E.C. 81 MG Tablet PO (09:03)
[2024-03-22] MEDS: Ascorbic Acid 500 MG Tablet PO (09:03)
[2024-03-22] MEDS: amLODIPine 5 MG Tablet PO (09:03)
[2024-03-22] MEDS: Insulin Glargine-YFGN 100 UNIT/ML Pen 15 UNIT SC ×2 (09:04→21:52)
--- NOTE | 2024-03-22 09:07 | CON.PCM.CC_ITS ---
Assessment & Plan Assessment/Plan (1) Hemoptysis: PLAN: Plan RECOMMENDATIONS: 1. Agree with continuing antimicrobials to complete 7 days of therapy. 2. If the patient were to develop rajiv hemoptysis, would need to consider holding Brilinta. 3. Continue to monitor blood counts. Transfuse if hemoglobin drops below 7 g/dL. 4. Follow-up in the pulmonary medicine clinic as scheduled in May. IMPRESSIONS: 1. Hemoptysis The patient appears to be experiencing hemoptysis, which is slowly resolving. This initially began several days ago after he underwent successful PCI and was placed on aspirin and Brilinta. In addition, chest imaging completed at that time demonstrated bibasilar airspace disease, concerning for pneumonia. Underlying infection/inflammation coupled with antiplatelet effects of Brilinta is likely contributing to his current symptoms. Given that the blood that he is expectorating is dark in color, is hemoptysis is likely to resolve without any form of intervention. I agree with continuing antimicrobials to complete a total of 7 days of therapy. If the patient were to develop any acute rajiv hemoptysis that is bright red in color, would need to consider holding Brilinta. I would recommend that the patient follow-up in the pulmonary medicine clinic after discharge, as scheduled in May. 2. History of COPD/chronic hypoxemic respiratory failure/tobacco dependency in remission Complicates care, management, recovery and prognosis. Continue supportive measures and follow-up in the pulmonary medicine clinic as scheduled. The patient is at his baseline from a respiratory perspective. This note was generated with [employer] dictation software. It may contain incorrect words, spelling, and punctuation that were not noted in checking the note before signing. HPI Consult Data Date of Consult: 03/22/24 HPI Narrative Reason for Consultation: Hemoptysis HPI Narrative: The patient is an 83-year-old male, with a history as outlined below, who initially presented to the emergency department on March 15 with progressive chest heaviness. The patient does have an extensive tobacco abuse history of 60 pack years, having quit completely 10 years ago. He completed pulmonary function studies in June 2023 which demonstrated a mild case of COPD. 6- minute walk test completed at that time demonstrated the need for 4 L/min of supplemental oxygen with exertion. He is currently followed on an outpatient basis in the pulmonary medicine clinic. On initial evaluation in the emergency department, the patient was noted to be experiencing an NSTEMI. The patient was seen in consultation by cardiology and taken to the cardiac catheterization lab, where he underwent successful PCI to the proximal circumflex artery. The patient was subsequently placed on antiplatelet therapy. For several days now, the patient has been experiencing blood-streaked sputum. On visual inspection, the blood itself appears to be old and dark in color. He is not experiencing any acute rajiv hemoptysis of bright red blood. Chest x-ray completed on March 18 demonstrated lower lobe airspace disease, for which the patient was placed on antimicrobials. The patient is stable from a respiratory perspective and remains on scheduled aspirin and Brilinta. [facility] Medical History (Updated 03/22/24 @ 11:[address] 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 Vitamin D deficiency SOB (shortness of breath) GERD (gastroesophageal reflux disease) Heart failure with preserved ejection fraction Diabetic polyneuropathy Hypothyroidism CKD (chronic kidney disease), stage IV Atherosclerotic cardiovascular disease COPD (chronic obstructive pulmonary disease) Chronic hypoxemic respiratory failure Pneumonia due to COVID-19 virus Hypertension PVCs (premature ventricular contractions) Anemia Obesity (BMI 30.0-34.9) Diabetes mellitus, type II HLD (hyperlipidemia) Chest pain Home Medications ?Medication ?Instructions ?Recorded ?Last Taken ?Type famotidine 40 mg tablet 40 mg PO DAILY GERD 07/13/18 Unknown History pen needles, lancets, test strips See Rx Instructions .Route 04/23/22 Unknown Rx diabetic .COMPLEX #100 ea glimepiride 4 mg tablet 4 mg PO DAILY DIABETES 06/23/22 Unknown History melatonin 10 mg tablet 10 mg PO QHS SLEEP 06/23/22 Unknown History levothyroxine 25 mcg tablet 25 mcg PO DAILY THYROID 07/09/22 Unknown History ascorbate calcium (vitamin C) 500 500 mg PO DAILY SUPPLEMENT 03/09/24 Unknown History mg tablet carvedilol 6.25 mg tablet (Coreg) 3.125 mg PO BID BLOOD PRESSURE 03/09/24 Unknown History furosemide 40 mg tablet 40 mg PO BID EDEMA 03/09/24 Unknown History gabapentin 300 mg capsule 300 mg PO BID NEUROPATHY 03/09/24 Unknown History polysaccharide iron complex 150 mg 150 mg PO DAILY SUPPLEMENT 03/09/24 Unknown History iron capsule (Ferrex) insulin degludec 100 unit/mL (3 20 unit subcut BID DIABETES 03/15/24 Unknown History mL) subcutaneous pen (Tresiba FlexTouch U-100 insulin) valsartan 320 1 tab PO DAILY BLOOD PRESSURE 03/15/24 Unknown History mg-hydrochlorothiazide 12.5 mg tablet Allergy/AdvReac Type Severity Reaction Status Date / Time No Known Allergies Allergy Verified 03/15/24 15:09 Family History Brother Diabetes Mother Diabetes Sister Diabetes Father Heart disease Surgical History (Updated 03/17/24 @ 12:42 by Zina Garcia) Stented coronary artery (03/16/24) History of appendectomy Social History Smoking Status: Former smoker alcohol intake: never ROS ROS Narrative 10 systems were reviewed with pertinent positives as noted in the HPI above. Physical Exam Const alert and no apparent distress Constitutional Narrative: Sitting in bedside recliner. General Appearance: cooperative HEENT normocephalic, head/scalp atraumatic and moist oral mucous membranes Eyes PERRL, EOMs intact bilaterally and conjunctivae normal Neck supple General: trachea midline Chest inspection of chest normal Resp normal respiratory effort Auscultation: diminished lung sounds; Negative for rales, rhonchi or wheezes Cardio regular rate and regular rhythm GI normal to inspection, nondistended, normoactive bowel sounds Extremity no clubbing, cyanosis or edema Skin no rashes or lesions noted Neuro CN's II-XII intact bilaterally, moves all extremities and no focal motor deficits Psych cooperative and affect normal Lab / Micro Data 03/22/24 05:46 03/22/24 05:46 Labs: Laboratory Results - last 24 hr 03/17/24 07:19: Total Protein (PEP) 6.5, Globulin 3.2, IgG 1404, IgA 365, IgM 128, Immunofixation Screen Comment, Albumin (CHRISTY) 3.3, Albumin/Globulin (CHRISTY) 1.1, Ouwlv-0-Ikwwhdnsv CHRISTY 0.2, Xxjgw-8-Ygxcspknz CHRISTY 0.7, Beta-Globulins (CHRISTY) 0.9, Gamma Globulins (CHRISTY) 1.3, CHRISTY M-Andrez Not Observed, CHRISTY Comments Comment, Glomerular Base Memb Ab < 0.2 03/21/24 09:08: POC Glucose 187 H 03/21/24 21:16: POC Glucose 197 H 03/22/24 05:46: WBC 10.0, RBC 2.78 L, Hgb 8.5 L, Hct 26.6 L, MCV 95.7 H, MCH 30.6, MCHC 32.0, RDW Std Deviation 46.7 H, RDW Coeff of Elmer 13.4, Plt Count 152, MPV 10.3, Immature Gran % (Auto) 1.000 H, Neut % (Auto) 74.2 H, Lymph % (Auto) 14.9 L, [place] % (Auto) 7.0, Eos % (Auto) 2.5, Baso % (Auto) 0.4, Absolute Neuts (auto) 7.4, Absolute Lymphs (auto) 1.49, Nucleated RBC % 0, Sodium 143, Potassium 4.2, Chloride 113 H, Carbon Dioxide 26.0, Anion Gap 4 L, BUN 52 H, C reatinine 2.05 H, Estim Creat Clear Calc 32.23, Est GFR (MDRD) Af Amer 40 L, Est GFR (MDRD) Non-Af 33 L, BUN/Creatinine Ratio 25.4 H, Glucose 137 H, Calcium 8.8 Charges/Coding Visit Charges Inpatient E&M: 33207 Init Hosp L3
[2024-03-22] MEDS: levoFLOXacin IV 250 MG/50 ML BAG 50 MG IV (09:30)
[2024-03-22 09:46] VITALS: BP 140/68; PULSE 98; RESP 18; TEMP 36.6; O2SAT 94
[2024-03-22 12:00] VITALS: O2SAT 94
--- NOTE | 2024-03-22 12:50 | PCM.PN.REN ---
Subjective Subjective hemoptysis Objective Data Objective Data Vital Signs: Vital Signs Temp Pulse Resp BP Pulse Ox O2 Del Method O2 Flow Rate 97.9 F 98 18 140/68 H 94 Nasal Cannula 2 03/22/24 09:46 03/22/24 09:46 03/22/24 09:46 03/22/24 09:46 03/22/24 12:00 03/22/24 12:00 03/22/24 12:00 Oxygen Flow Rate (L/min) 2 Oxygen Delivery Method Nasal Cannula Weight: 95.7 kg Body Mass Index (BMI) 29.4 Intake & Output: Intake and Output for Last 24 Hours 03/20/24 03/21/24 03/22/24 22:59 23:59 23:59 Intake Total 1340 / 1340 550 / 550 650 / 650 Output Total 1350 / 1350 1500 / 1500 800 / 800 Balance -10 / -10 -950 / -950 -150 / -150 Lab / Micro Data 03/22/24 05:46 03/22/24 05:46 Labs: Laboratory Results - last 24 hr 03/17/24 07:19: Total Protein (PEP) 6.5, Globulin 3.2, IgG 1404, IgA 365, IgM 128, Immunofixation Screen Comment, Albumin (CHRISTY) 3.3, Albumin/Globulin (CHRISTY) 1.1, Letqw-3-Maaritrwa CHRISTY 0.2, Pmysi-8-Oggnlythl CHRISTY 0.7, Beta-Globulins (CHRISTY) 0.9, Gamma Globulins (CHRISTY) 1.3, CHRISTY M-Andrez Not Observed, CHRISTY Comments Comment, Glomerular Base Memb Ab < 0.2 03/21/24 21:16: POC Glucose 197 H 03/22/24 05:46: WBC 10.0, RBC 2.78 L, Hgb 8.5 L, Hct 26.6 L, MCV 95.7 H, MCH 30.6, MCHC 32.0, RDW Std Deviation 46.7 H, RDW Coeff of Elmer 13.4, Plt Count 152, MPV 10.3, Immature Gran % (Auto) 1.000 H, Neut % (Auto) 74.2 H, Lymph % (Auto) 14.9 L, [place] % (Auto) 7.0, Eos % (Auto) 2.5, Baso % (Auto) 0.4, Absolute Neuts (auto) 7.4, Absolute Lymphs (auto) 1.49, Nucleated RBC % 0, Sodium 143, Potassium 4.2, Chloride 113 H, Carbon Dioxide 26.0, Anion Gap 4 L, BUN 52 H, Creatinine 2.05 H, Estim Creat Clear Calc 32.23, Est GFR (MDRD) Af Amer 40 L, Est GFR (MDRD) Non-Af 33 L, BUN/Creatinine Ratio 25.4 H, Glucose 137 H, Calcium 8.8 Micro: Microbiology 03/16/24 01:25 Urine, Clean Catch Urine Culture - Final Enterococcus faecalis 03/17/24 15:14 Stool Stool Occult Blood (GREG) - Final 03/15/24 17:05 Stool Stool Occult Blood (GREG) - Final Physical Exam Narrative Alert awake oriented x 3 no obvious distress s1s2 no murmurs lungs clear abdomen soft no edema white with clear yellow urine Assessment & Plan Assessment/Plan (1) KALYN (acute kidney injury): PLAN: baseline cr around 2.0 or so. several fluctuations due to ongoing issues. renal US is ok. UA shows microscopic hematuria. ANCA negative Anti GBM negative -KALYN on CKD; KALYN possibly from cardiorenal physiology. Serum creatinine 5.22 on 03/15 (this was peak). Cr was 1.6 yesterday. 2 today. some fluctuations likely hemodynamic ongoing hemoptysis. ANCA negative anti GBM negative we have not pursued kidney biopsy since cr is better pulmonology on consult (2) CKD (chronic kidney disease), stage IV:
--- NOTE | 2024-03-22 13:14 | PN_ITS ---
Subjective Subjective Patient seen and examined. He had no active complaints. He is still having some scant hemoptysis. Review of systems is otherwise negative. He is awaiting placement. Objective Data Objective Data Vital Signs: Vital Signs Temp Pulse Resp BP Pulse Ox O2 Del Method O2 Flow Rate 97.9 F 98 18 140/68 H 94 Nasal Cannula 2 03/22/24 09:46 03/22/24 09:46 03/22/24 09:46 03/22/24 09:46 03/22/24 12:00 03/22/24 12:00 03/22/24 12:00 Oxygen Flow Rate (L/min) 2 Oxygen Delivery Method Nasal Cannula Weight: 210 lb 15.718 oz Body Mass Index (BMI) 29.4 Intake & Output: Intake and Output for Last 24 Hours 03/20/24 03/21/24 03/22/24 22:59 23:59 23:59 Intake Total 1340 / 1340 550 / 550 650 / 650 Output Total 1350 / 1350 1500 / 1500 800 / 800 Balance -10 / -10 -950 / -950 -150 / -150 Lab / Micro Data 03/22/24 05:46 03/22/24 05:46 Labs: Laboratory Results - last 24 hr 03/17/24 07:19: Total Protein (PEP) 6.5, Globulin 3.2, IgG 1404, IgA 365, IgM 128, Immunofixation Screen Comment, Albumin (CHRISTY) 3.3, Albumin/Globulin (CHRISTY) 1.1, Dwdgh-2-Zbelbidzm CHRISTY 0.2, Qtzih-0-Bxjaababd CHRISTY 0.7, Beta-Globulins (CHRISTY) 0.9, Gamma Globulins (CHRISTY) 1.3, CHRISTY M-Andrez Not Observed, CHRISTY Comments Comment, Glomerular Base Memb Ab < 0.2 03/21/24 21:16: POC Glucose 197 H 03/22/24 05:46: WBC 10.0, RBC 2.78 L, Hgb 8.5 L, Hct 26.6 L, MCV 95.7 H, MCH 30.6, MCHC 32.0, RDW Std Deviation 46.7 H, RDW Coeff of Elmer 13.4, Plt Count 152, MPV 10.3, Immature Gran % (Auto) 1.000 H, Neut % (Auto) 74.2 H, Lymph % (Auto) 14.9 L, [place] % (Auto) 7.0, Eos % (Auto) 2.5, Baso % (Auto) 0.4, Absolute Neuts (auto) 7.4, Absolute Lymphs (auto) 1.49, Nucleated RBC % 0, Sodium 143, Potassium 4.2, Chloride 113 H, Carbon Dioxide 26.0, Anion Gap 4 L, BUN 52 H, C reatinine 2.05 H, Estim Creat Clear Calc 32.23, Est GFR (MDRD) Af Amer 40 L, Est GFR (MDRD) Non-Af 33 L, BUN/Creatinine Ratio 25.4 H, Glucose 137 H, Calcium 8.8 Micro: Microbiology 03/16/24 01:25 Urine, Clean Catch Urine Culture - Final Enterococcus faecalis 03/17/24 15:14 Stool Stool Occult Blood (GREG) - Final 03/15/24 17:05 Stool Stool Occult Blood (GREG) - Final Physical Exam Const alert, oriented x3 and no apparent distress General Appearance: cooperative HEENT normocephalic, head/scalp atraumatic and moist oral mucous membranes Eyes PERRL and EOMs intact bilaterally Neck no lymphadenopathy, supple and no JVD Lymph Lymphatic: no lymphadenopathy noted and no lymphedema noted Resp Resp Narrative: mildly diminished breath sounds bibasally, no wheezes or crackles. On 2 L of oxygen by nasal canula Cardio regular rate, regular rhythm, S1 normal heart sound, S2 normal heart sound and no murmurs GI normal to inspection, nondistended, normoactive bowel sounds, soft to palpation, non-tender and non-distended Extremity normal capillary refill, no clubbing, cyanosis or edema and no calf tenderness General Extremity: no tenderness to palpation of joints or extremities Skin General Skin Exam: no breakdown Neuro CN's II-XII intact bilaterally, no focal motor deficits and no sensory deficits noted Coordination / Balance: tjmhtd-mt-mwut test normal Motor Exam: strength 5/5 throughout and general weakness Psych thought process normal, cooperative and affect normal Appearance: appropriate Assessment & Plan Assessment/Plan (1) KALYN (acute kidney injury): (2) Non-ST elevation [place] (NSTEMI): PLAN: Plan #Nonstemi * patient was admitted with a complaint of chest pain. Chest pain was persistent even when having an echo * he was sent emergently to the cath lab technologist where cardiac cath showed totally occluded RCA with high-grade left circumflex artery stenosis and moderate disease of the left anterior descending artery with left to right collaterals. * He had urgent PCI to the left circumflex artery * On aspirin and Brilinta as well as high intensity statin * #Acute on chronic anemia * Hb today is 8.5. * CXR showed interval worsening of diffuse bilateral lower lung streaky airspace * Iron profile does not show any evidence of iron deficiency anemia * transfuse one unit of PRBC to shore up the Hb * #Hemoptysis * CXR showed interval worsening of diffuse bilateral lower lung streaky airspace disease * will treat for pneumonia as this may be the cause of his hemoptysis, based on the CXR findings. * on IV levofloxacin for presumptive pneumonia * still having some scant hemoptysis * Pulmonology consulted; appreciate recs. * #Hypotension * resolved. * #Hypothyroidism: on synthroid #Type 2 diabetes mellitus: on lantus 15 units bid. ISS. Accuchecks ACHS #UTI: * urinalysis showed 3+ bacteria. urine cultures growing Enterococcus. * Now on IV levofloxacin to cover both UTI and probable pneumonia #KALYN on CKD III with hypernatremia * CR is down to 1.66. Hypernatremia has resolved. * nephrology on board. * hold any nephrotoxic meds. * renal USG showed no suspicious findings. * continue trending Cr * #HFpEF: hold lasix due to worsening of kidney function. #Hypertension: continue to hold valsartan and HCTZ due to KALYN on BILL #Hyperlipidemia: on statin #Hypothyroidism: * TSH is elevated at 5.26 and free T4 is 0.75. * on synthroid already. * will hold off on adjusting dose of synthroid. TO have repeat thyroid function tests on outpatient basis * #GERD: on PPI DVT prophylaxis; SCDs. Disposition: awaiting placement Charges/Coding Visit Charges Inpatient E&M: 19256 Subs Hosp L2
[2024-03-22 14:00] VITALS: BP 122/76; PULSE 77; RESP 16; TEMP 36.7; O2SAT 97
[2024-03-22] MEDS: Tamsulosin HCl 0.4 MG Capsule PO (16:47)
--- NOTE | 2024-03-22 16:56 | NURSING ---
This nurse spoke to pt's dgtr and update given at this time. No concerns voiced.
[2024-03-22 21:42] VITALS: BP 150/61; PULSE 75; RESP 18; TEMP 37; O2SAT 98
[2024-03-22] MEDS: Senna/Docusate Sodium 1 Tablet 2 TABLET PO (21:53)
[2024-03-22] MEDS: MELATONIN 10 MG TABLET PO (21:53)
[2024-03-22 22:17] LABS: Bedside Glucose 180 mg/dL (74-106)
[2024-03-23 03:30] VITALS: BP 142/61; PULSE 69; RESP 18; TEMP 36.6; O2SAT 99
[2024-03-23 05:20] VITALS: BMI 29.9
[2024-03-23 05:27] LABS: Absolute Lymphocyte Count 1.49 X10^3/uL (0.83-4.51); Absolute Neutrophil Count 6.9 X10^3/uL (2.0-7.7); Basophil# 0.03 X10^3/uL; Basophil% 0.3 % (0-1); Eosinophils% 3.2 % (0-5); Hematocrit 25.8 % (40-54); Hemoglobin 8.4 g/dL (13.0-16.5); Lymphocyte # 1.49 X10^3/ul (0.83-4.51); Lymphocyte % 15.9 % (19-41); Mean Corp Hgb Conc 32.6 g/dL (32-36); Mean Corpuscular Hgb 30.8 pg (27.0-32.0); Mean Corpuscular Volume 94.5 fL (80-94); Mean Platelet Vol. 9.6 fl (6.2-12.0); Monocyte% 6.4 % (0-10); NRBC Flagged by Analyzer 0 % (0-5); Neutrophil # 6.85 X10^3/uL (2.7-7.7); Neutrophil % 72.9 % (47-70); Platelet Count 142 K/mm3 (150-450); RBC Distribution Width CV 13.4 % (11.6-14.6); RBC Distribution Width SD 45.9 fl (35.1-43.9); Red Blood Count 2.73 M/mm3 (4.6-6.2); White Blood Count 9.4 K/mm3 (4.4-11.0)
[2024-03-23 06:05] LABS: Anion Gap 4 (5-15); BUN 57 mg/dL (7-18); BUN/Creat Ratio 29.8 RATIO (10-20); Calcium,Total 8.6 mg/dL (8.5-10.1); Chloride 112 mmol/L (98-107); Creatinine, Serum 1.91 mg/dL (0.70-1.30); EST Glomerular Filtration Rate 36 mL/min (>60); Est Glom Filt Rate - Afr Amer 43 mL/min (>60); Estimated Creatinine Clearance 34.91 ml/min; Glucose 158 mg/dL (74-106); Potassium 4.3 mmol/L (3.5-5.1); Sodium Level 142 mmol/L (136-145)
[2024-03-23] MEDS: Levothyroxine 25 MCG TABLET PO (06:12)
[2024-03-23 07:09] VITALS: O2SAT 95
[2024-03-23] MEDS: 0.9% Saline Lock 10 ML Syringe IV (08:59)
[2024-03-23] MEDS: proCHLORPERazine 10 MG/2 ML Vial 5 MG IV (08:59)
[2024-03-23 09:01] VITALS: BP 122/57; PULSE 67; RESP 20; TEMP 36.4; O2SAT 100
[2024-03-23] MEDS: Insulin Glargine-YFGN 100 UNIT/ML Pen 15 UNIT SC (10:36)
[2024-03-23] MEDS: Glucerna Shake 120 ML LIQUID PO (10:36)
[2024-03-23] MEDS: TICAGRELOR 90 MG TABLET PO (10:36)
[2024-03-23] MEDS: Carvedilol 6.25 MG Tablet PO (10:36)
[2024-03-23] MEDS: Aspirin E.C. 81 MG Tablet PO (10:36)
[2024-03-23] MEDS: Ascorbic Acid 500 MG Tablet PO (10:37)
[2024-03-23] MEDS: amLODIPine 5 MG Tablet PO (10:37)
[2024-03-23] MEDS: Senna/Docusate Sodium 1 Tablet 2 TABLET PO (10:37)
[2024-03-23] MEDS: levoFLOXacin IV 250 MG/50 ML BAG 50 MG IV (10:44)
--- NOTE | 2024-03-23 11:37 | TREXTCAR_ITS ---
Diet Diet Order/Speech Therapy: 03/15/24 22:22 Diet: Cardiac: Calorie-Controlled Food consistency:: Regular Liquid Consistency:: Regular/Thin How many daily calories?: 1800 calorie Routine Orders/Code Status Enema Type: Fleetz Enema Frequency: Daily PRN Suppository Type: Dulcolax 10mg Suppository Frequency: Daily PRN O2 Frequency: PRN Keep PO Greater than or Equal to (%): 90 Wound(s) right knee: Wound Type: Abrasion right wrist: Wound Type: Puncture Therapies Weight Bearing: Weight bearing as tolerated Physical Therapy: Eval and Treat Occupational Therapy: Eval and Treat Problem/Diagnosis (1) KALYN (acute kidney injury): Status: Acute Code(s): N17.9 - Acute kidney failure, unspecified (2) Non-ST elevation MD (NSTEMI): Status: Acute Code(s): I21.4 - Non-ST elevation (NSTEMI) myocardial infarction Plan #Nonstemi * patient was admitted with a complaint of chest pain. Chest pain was persistent even when having an echo * he was sent emergently to the labeling specialist where cardiac cath showed totally occluded RCA with high-grade left circumflex artery stenosis and moderate disease of the left anterior descending artery with left to right collaterals. * He had urgent PCI to the left circumflex artery * On aspirin and Brilinta as well as high intensity statin * #Acute on chronic anemia * Hb today is 8.5. * CXR showed interval worsening of diffuse bilateral lower lung streaky airspace * Iron profile does not show any evidence of iron deficiency anemia * transfuse one unit of PRBC to shore up the Hb * #Hemoptysis * CXR showed interval worsening of diffuse bilateral lower lung streaky airspace disease * will treat for pneumonia as this may be the cause of his hemoptysis, based on the CXR findings. * on IV levofloxacin for presumptive pneumonia * still having some scant hemoptysis * Pulmonology consulted; appreciate recs. * #Hypotension * resolved. * #Hypothyroidism: on synthroid #Type 2 diabetes mellitus: on lantus 15 units bid. ISS. Accuchecks ACHS #UTI: * urinalysis showed 3+ bacteria. urine cultures growing Enterococcus. * Now on IV levofloxacin to cover both UTI and probable pneumonia #KALYN on CKD III with hypernatremia * CR is down to 1.66. Hypernatremia has resolved. * nephrology on board. * hold any nephrotoxic meds. * renal USG showed no suspicious findings. * continue trending Cr * #HFpEF: hold lasix due to worsening of kidney function. #Hypertension: continue to hold valsartan and HCTZ due to KALYN on BILL #Hyperlipidemia: on statin #Hypothyroidism: * TSH is elevated at 5.26 and free T4 is 0.75. * on synthroid already. * will hold off on adjusting dose of synthroid. TO have repeat thyroid function tests on outpatient basis * #GERD: on PPI DVT prophylaxis; SCDs. Disposition: awaiting placement Allergies/Procedures Done in Hospital Allergies No Known Allergies Allergy (Verified 03/15/24 15:09) Procedures: 2-D Echocardiogram and Cardiac catheterization Type of Care/Length of Stay Estimated LOS: Convalescent Care Less Than 30 days Type of Care Needed: Skilled Rehab Potential: Fair Prognosis: Fair Additional Orders/Day of Discharge Day of Discharge: 03/23/24 Dietary and Speech Recommendations Dietitian Recommendations/Changes: Continue cardiac; 1800 calorie controlled diet. Will order 120ml vanilla glucerna TID with medpass. Will monitor weight, as available. Reviewed and approved by Sarah Black MS, RD, LD. Discharge Plan Admission Admit Date/Time: 03/15/24 20:54 Primary Reason for Your Visit: nonstemi, pneumonia Attending Provider: Nora Ramirez Primary Care Provider: Kain Bhakta Chi Consulting Providers: Riley Childers; Marcial Sumner; Peter Lou; Mann Poole; Ozzy Reyna; Markell Olson; Hunter Levy; Joseph Ortiz; Khoi Oswald; Jose Alejandro Wilson; Zee Hoffman; James Jackson; Alexander Daugherty; Noemi Rader; Kathrin Duque; Sylvester Huynh; Adolfo Kulkarni; Jomar Menon; Mery Carbajal; Blacno Charles; Gonzalez Green Discharge Orders/Prescriptions Prescriptions: New carvedilol 6.25 mg Tablet 6.25 mg PO BID Qty: 60 2RF tamsulosin 0.4 mg Capsule 0.4 mg PO DAILY@1730 Qty: 30 2RF nitroglycerin 0.4 mg Tablet, Sublingual 0.4 mg sublingual Q5M PRN (Reason: Cardiac/Chest Pain) Qty: 30 2RF Brilinta 90 mg Tablet 90 mg PO BID Qty: 60 2RF amlodipine 5 mg Tablet 5 mg PO DAILY Qty: 30 2RF aspirin 81 mg Tablet,Delayed Release (Dr/Ec) 81 mg PO BREAKFAST Qty: 30 2RF levofloxacin 500 mg tablet 500 mg PO DAILY Qty: 5 0RF Continued furosemide 40 mg tablet 40 mg PO BID ascorbate calcium (vitamin C) 500 mg tablet 500 mg PO DAILY polysaccharide iron complex [Ferrex 150] 150 mg iron capsule 150 mg PO DAILY famotidine 40 MG tablet 40 mg PO DAILY gabapentin 300 mg capsule 300 mg PO BID pen needles, lancets, test strips diabetic See Rx Instructions .ROUTE .COMPLEX Qty: 100 0RF Rx Instructions: Brand per insurance preference. Check glucose in the morning and with meals, inject sliding scale insulin per protocol. Dispense 100EA for pen needles, lancets, and test strips glimepiride 4 mg Tablet 4 mg PO DAILY melatonin 10 mg Tablet 10 mg PO QHS levothyroxine 25 mcg Tablet 25 mcg PO DAILY Changed insulin degludec [Tresiba FlexTouch U-100] 100 unit/mL (3 mL) insulin pen 15 unit subcut BID Qty: 15 1RF Discontinued carvedilol [Coreg] 6.25 mg tablet 3.125 mg PO BID valsartan-hydrochlorothiazide 320-12.5 mg tablet 1 tab PO DAILY Referrals / Follow Up: Kain Bhakta Chi, MD [Primary Care Provider] - Disposition Disposition (needs filled in before D/C Order can be placed): [facility]
--- NOTE | 2024-03-23 11:39 | PCM.DC.SUM ---
Providers Date of Admission: 03/15/24 Date of Discharge: 03/23/24 Primary Care Physician: Dr. Kain Bhakta MD Consultations 03/15/24 22:22 Consult: Cardiology Routine Consulting Provider: Riley Childers Reason for Consult: Chest Pain EMERGENT Consult: No Notified: Yes Date Notified: 03/15/24 Time Notified: 20:56 Method of Notification: ED Physician Initiated 03/16/24 00:37 Consult: Nephrology Routine Consulting Provider: Marcial Sumner Reason for Consult: KALYN on CKD 4 EMERGENT Consult: No Notified: Yes Date Notified: 03/16/24 Time Notified: 00:37 Method of Notification: Text 03/21/24 13:06 Consult: Home Service Technician / Pulmonary Medicine Routine Consulting Provider: Intensivists/Pulmonary Med Reason for Consult: hemoptysis EMERGENT Consult: No Notified: Yes Date Notified: 03/21/24 Time Notified: 13:17 Method of Notification: Text Reason For Visit: ACS Diagnosis Discharge Diagnosis (1) KALYN (acute kidney injury): Status: Acute Code(s): N17.9 - Acute kidney failure, unspecified (2) Non-ST elevation NM (NSTEMI): Status: Acute Code(s): I21.4 - Non-ST elevation (NSTEMI) myocardial infarction Plan #Nonstemi patient was admitted with a complaint of chest pain. Chest pain was persistent even when having an echo he was sent emergently to the laboratory courier where cardiac cath showed totally occluded RCA with high-grade left circumflex artery stenosis and moderate disease of the left anterior descending artery with left to right collaterals. He had urgent PCI to the left circumflex artery On aspirin and Brilinta as well as high intensity statin #Acute on chronic anemia Hb today is 8.5. CXR showed interval worsening of diffuse bilateral lower lung streaky airspace Iron profile does not show any evidence of iron deficiency anemia transfuse one unit of PRBC to shore up the Hb #Hemoptysis CXR showed interval worsening of diffuse bilateral lower lung streaky airspace disease will treat for pneumonia as this may be the cause of his hemoptysis, based on the CXR findings. on IV levofloxacin for presumptive pneumonia still having some scant hemoptysis Pulmonology consulted; appreciate recs. #Hypotension resolved. #Hypothyroidism: on synthroid #Type 2 diabetes mellitus: on lantus 15 units bid. ISS. Accuchecks ACHS #UTI: urinalysis showed 3+ bacteria. urine cultures growing Enterococcus. Now on IV levofloxacin to cover both UTI and probable pneumonia #KALYN on CKD III with hypernatremia CR is down to 1.66. Hypernatremia has resolved. nephrology on board. hold any nephrotoxic meds. renal USG showed no suspicious findings. continue trending Cr #HFpEF: hold lasix due to worsening of kidney function. #Hypertension: continue to hold valsartan and HCTZ due to KALYN on BILL #Hyperlipidemia: on statin #Hypothyroidism: TSH is elevated at 5.26 and free T4 is 0.75. on synthroid already. will hold off on adjusting dose of synthroid. TO have repeat thyroid function tests on outpatient basis #GERD: on PPI DVT prophylaxis; SCDs. Disposition: awaiting placement Medications at Discharge Home Medications famotidine 40 mg tablet 40 mg PO DAILY GERD 07/13/18 pen needles, lancets, test strips diabetic See Rx Instructions .Route .COMPLEX insulin #100 ea 04/23/22 glimepiride 4 mg tablet 4 mg PO DAILY DIABETES 06/23/22 melatonin 10 mg tablet 10 mg PO QHS SLEEP 06/23/22 levothyroxine 25 mcg tablet 25 mcg PO DAILY THYROID 07/09/22 ascorbate calcium (vitamin C) 500 mg tablet 500 mg PO DAILY SUPPLEMENT 03/09/24 furosemide 40 mg tablet 40 mg PO BID EDEMA 03/09/24 gabapentin 300 mg capsule 300 mg PO BID NEUROPATHY 03/09/24 polysaccharide iron complex 150 mg iron capsule (Ferrex) 150 mg PO DAILY SUPPLEMENT 03/09/24 amlodipine 5 mg tablet 5 mg PO DAILY bp #30 tabs 03/23/24 aspirin 81 mg tablet,delayed release 81 mg PO BREAKFAST heart #30 tabs 03/23/24 atorvastatin 40 mg tablet 40 mg PO DAILY cholesterol #30 tabs 03/23/24 carvedilol 6.25 mg tablet 6.25 mg PO BID bp #60 tabs 03/23/24 insulin degludec 100 unit/mL (3 mL) subcutaneous pen (Tresiba FlexTouch U-100 insulin) 15 unit (0.15 mL) subcut BID DIABETES #15 mL 03/23/24 levofloxacin 500 mg tablet 500 mg PO DAILY pneomonia, uti #5 tabs 03/23/24 nitroglycerin 0.4 mg sublingual tablet 0.4 mg sublingual Q5M PRN Cardiac/Chest Pain #30 tabs 03/23/24 tamsulosin 0.4 mg capsule 0.4 mg PO DAILY@1730 urinary retention #30 caps 03/23/24 ticagrelor 90 mg tablet (Brilinta) 90 mg PO BID acute coronary syndrome #60 tabs 03/23/24 Hospital Course Operations None Procedures 2-D Echocardiogram and Cardiac catheterization Summary of Care Provided Minutes Spent on Discharge: 55 Hospital Course: Patient is an 83-year-old male with a past medical history as outlined who was admitted through the ED on 03/15/2024 with a complaint of chest tightness and shortness of breath for 2 weeks prior to admission. His symptoms were worsened with exertion and improved with rest. He denied any dizziness or lightheadedness or syncope or any other symptoms. Review of systems otherwise negative. On admission he was found to have elevated troponins. EKG showed no acute ST changes. He was admitted and managed for non-STEMI. Cardiology was consulted. Of note he also had KALYN on CKD with creatinine being elevated with a baseline of 1.56. Nephrology was consulted. There was concern for UTI also and he was started on IV ceftriaxone and urine cultures obtained. He had cardiac cath which showed totally occluded RCA with high-grade left circumflex artery and moderate disease to the left anterior descending artery with left to right collaterals. He had urgent PCI to the left circumflex artery. He was placed on aspirin and brilinta as well as high intensity statin. Cr trended up to a peak of 5.22. Renal USG showed no evidence of any obstruction or acute pathology. Creatinine trended down gradually on its own. His Lasix was held. Hospital course was complicated by hemoptysis. There was concern for pneumonia per chest x-ray. Urine cultures grew enterococci and was initially switched to IV ciprofloxacin but this was switched to IV levofloxacin o/a of the pneumonia. Pulmonology was consulted on account of the hemoptysis but pulmonology recommended patient continue with the levofloxacin and follow-up with pulmonology on outpatient basis. Valsartan and hydrochlorothiazide were discontinued. Patient remained stable and was discharged home on 03/23/2024. He is follow-up with his primary care doctor, cardiology and nephrology. Patient was seen and examined prior to discharge. He had no active complaints. He was eating breakfast. He is still having hemoptysis but says it is improving. Review of systems otherwise negative. Labs and vitals reviewed. Home medication reviewed and reconciled. Physical Exam Const alert, oriented x3 and no apparent distress General Appearance: cooperative and comfortable Orientation / Consciousness: awake Exam Limitations: no limitations HEENT normocephalic, head/scalp atraumatic, hearing grossly normal bilaterally and moist oral mucous membranes Mouth: oral and palatal mucosa normal Eyes PERRL and EOMs intact bilaterally Neck no lymphadenopathy, supple and no JVD Lymph Lymphatic: no lymphadenopathy noted and no lymphedema noted Resp Resp Narrative: mildly diminished breath sounds bibasally, no wheezes or crackles. On 2 L of oxygen by nasal canula Cardio regular rate, regular rhythm, S1 normal heart sound, S2 normal heart sound and no murmurs GI normal to inspection, nondistended, normoactive bowel sounds, soft to palpation, non-tender and non-distended Extremity normal capillary refill, no clubbing, cyanosis or edema and no calf tenderness General Extremity: no tenderness to palpation of joints or extremities Skin General Skin Exam: no breakdown Neuro oriented x3, CN's II-XII intact bilaterally, moves all extremities, no focal motor deficits and no sensory deficits noted Sensorium / Orientation: awake and alert Coordination / Balance: [id number] test normal Motor Exam: strength 5/5 throughout and general weakness Psych thought process normal, cooperative and affect normal Appearance: appropriate Weight / BMI Weight Weight: 215 lb 2.738 oz Body Mass Index (BMI) 29.9 ABG / Lab / Microbiology Data 03/23/24 05:15 03/23/24 05:15 Laboratory: Laboratory Results - last 24 hr 03/22/24 21:51: POC Glucose 180 H 03/23/24 05:15: WBC 9.4, RBC 2.73 L, Hgb 8.4 L, Hct 25.8 L, MCV 94.5 H, MCH 30.8, MCHC 32.6, RDW Std Deviation 45.9 H, RDW Coeff of Elmer 13.4, Plt Count 142 L, MPV 9.6, Immature Gran % (Auto) 1.300 H, Neut % (Auto) 72.9 H, Lymph % (Auto) 15.9 L, Hitchcock % (Auto) 6.4, Eos % (Auto) 3.2, Baso % (Auto) 0.3, Absolute Neuts (auto) 6.9, Absolute Lymphs (auto) 1.49, Nucleated RBC % 0, Sodium 142, Potassium 4.3, Chloride 112 H, Carbon Dioxide 25.0, Anion Gap 4 L, BUN 57 H, Creatinine 1.91 H, Estim Creat Clear Calc 34.91, Est GFR (MDRD) Af Amer 43 L, Est GFR (MDRD) Non-Af 36 L, BUN/Creatinine Ratio 29.8 H, Glucose 158 H, Calcium 8.6 Microbiology: Microbiology 03/16/24 01:25 Urine, Clean Catch Urine Culture - Final Enterococcus faecalis 03/17/24 15:14 Stool Stool Occult Blood (GREG) - Final 03/15/24 17:05 Stool Stool Occult Blood (GREG) - Final D/C Instructions Discharge Diet: Low fat / Low cholesterol Discharge Activity: Return to Normal Activity Weight Bearing Status: Weight bearing as tolerated Call your doctor if you observe: Fever of 101 or Higher, Shortness of breath, Dizziness, Swelling in the ankles and Chest pain Meaningful Use Info Meaningful Use Meaningful Use Diagnoses (Choose all that apply): AMI AMI/Post PCI/Angioplasty Aspirin given w/in 24hrs of arrival?: Yes ASA at discharge?: Yes Antiplatelet Therapy at Discharge:: Yes Statins at discharge?: Yes Bill/ARB at discharge?: No Reason Bill/ARB not ordered:: Worsening renal function Beta Marisa at discharge?: Yes Done w/ Acute NM measure.: Yes Documented LVEF (%): 65 Ischemic Stroke Statin Dosing Therapy Reference: STATIN DOSE THERAPY REFERENCE: * Patients > 75 years receive moderate or high dose statin therapy. * Patients 75 years or YOUNGER should receive HIGH intensity statin dose unless contraindicated. You will be required to document reason for non-treatment if statin daily dose does not meet guidelines. HIGH DOSE STATIN THERAPY DAILY Atorvastatin > than or = to 40 mg Rosuvastatin > than or = to 20 mg Amlodipine + Atorvastatin > than or = to 2.5/40 mg Ezetimibe + Simvastatin 10/80 mg Simvastatin 80mg Discharge Plan Admission Admit Date/Time: 03/15/24 20:54 Primary Reason for Your Visit: nonstemi, pneumonia Attending Provider: Nora Ramirez Primary Care Provider: Kain Bhakta Chi Consulting Providers: Riley Childers; Marcial Sumner; Peter Lou; Mann Poole; Ozzy Reyna; Markell Olson; Hunter Levy; Joseph Ortiz; Khoi Oswald; Jose Alejandro Wilson; Zee Hoffman; James Jackson; Alexander Daugherty; Noemi Rader; Kathrin Duque; Sylvester Huynh; Adolfo Kulkarni; Jomar Menon; Mery Carbajal; Blanco Charles; Gonzalez Green Discharge Orders/Prescriptions Prescriptions: New carvedilol 6.25 mg Tablet 6.25 mg PO BID Qty: 60 2RF tamsulosin 0.4 mg Capsule 0.4 mg PO DAILY@1730 Qty: 30 2RF nitroglycerin 0.4 mg Tablet, Sublingual 0.4 mg sublingual Q5M PRN (Reason: Cardiac/Chest Pain) Qty: 30 2RF Brilinta 90 mg Tablet 90 mg PO BID Qty: 60 2RF amlodipine 5 mg Tablet 5 mg PO DAILY Qty: 30 2RF aspirin 81 mg Tablet,Delayed Release (Dr/Ec) 81 mg PO BREAKFAST Qty: 30 2RF levofloxacin 500 mg tablet 500 mg PO DAILY Qty: 5 0RF atorvastatin 40 mg tablet 40 mg PO DAILY Qty: 30 2RF Continued furosemide 40 mg tablet 40 mg PO BID ascorbate calcium (vitamin C) 500 mg tablet 500 mg PO DAILY polysaccharide iron complex [Ferrex 150] 150 mg iron capsule 150 mg PO DAILY famotidine 40 MG tablet 40 mg PO DAILY gabapentin 300 mg capsule 300 mg PO BID pen needles, lancets, test strips diabetic See Rx Instructions .ROUTE .COMPLEX Qty: 100 0RF Rx Instructions: Brand per insurance preference. Check glucose in the morning and with meals, inject sliding scale insulin per protocol. Dispense 100EA for pen needles, lancets, and test strips glimepiride 4 mg Tablet 4 mg PO DAILY melatonin 10 mg Tablet 10 mg PO QHS levothyroxine 25 mcg Tablet 25 mcg PO DAILY Changed insulin degludec [Tresiba FlexTouch U-100] 100 unit/mL (3 mL) insulin pen 15 unit subcut BID Qty: 15 1RF Discontinued carvedilol [Coreg] 6.25 mg tablet 3.125 mg PO BID valsartan-hydrochlorothiazide 320-12.5 mg tablet 1 tab PO DAILY Referrals / Follow Up: Riley Childers MD [Med Staff - Active Staff] - Within 2 Weeks Kain Bhakta Chi, MD [Primary Care Provider] - Within 1 Week Disposition Disposition (needs filled in before D/C Order can be placed): [facility] Charges/Coding Visit Charges Inpatient E&M: 77032 Disch Hosp >30min
--- NOTE | 2024-03-23 12:19 | PHA.DC.MR.R ---
Pharmacy [place] Med Reconciliation Pharmacy Service has performed discharge medication reconciliation for this patient. No statin ordered for discharge initially, contacted Dr. Ramirez, atorvastatin added for discharge. The patient's discharge medication list was reviewed for discrepancies and discrepancies were resolved. Medications at Discharge Home Medications famotidine 40 mg tablet 40 mg PO DAILY GERD 07/13/18 pen needles, lancets, test strips diabetic See Rx Instructions .Route .COMPLEX #100 ea 04/23/22 glimepiride 4 mg tablet 4 mg PO DAILY DIABETES 06/23/22 melatonin 10 mg tablet 10 mg PO QHS SLEEP 06/23/22 levothyroxine 25 mcg tablet 25 mcg PO DAILY THYROID 07/09/22 ascorbate calcium (vitamin C) 500 mg tablet 500 mg PO DAILY SUPPLEMENT 03/09/24 furosemide 40 mg tablet 40 mg PO BID EDEMA 03/09/24 gabapentin 300 mg capsule 300 mg PO BID NEUROPATHY 03/09/24 polysaccharide iron complex 150 mg iron capsule (Ferrex) 150 mg PO DAILY SUPPLEMENT 03/09/24 amlodipine 5 mg tablet 5 mg PO DAILY #30 tabs 03/23/24 aspirin 81 mg tablet,delayed release 81 mg PO BREAKFAST #30 tabs 03/23/24 atorvastatin 40 mg tablet 40 mg PO DAILY #30 tabs 03/23/24 carvedilol 6.25 mg tablet 6.25 mg PO BID #60 tabs 03/23/24 insulin degludec 100 unit/mL (3 mL) subcutaneous pen (Tresiba FlexTouch U-100 insulin) 15 unit (0.15 mL) subcut BID DIABETES #15 mL 03/23/24 levofloxacin 500 mg tablet 500 mg PO DAILY #5 tabs 03/23/24 nitroglycerin 0.4 mg sublingual tablet 0.4 mg sublingual Q5M PRN Cardiac/Chest Pain #30 tabs 03/23/24 tamsulosin 0.4 mg capsule 0.4 mg PO DAILY@1730 #30 caps 03/23/24 ticagrelor 90 mg tablet (Brilinta) 90 mg PO BID #60 tabs 03/23/24
--- NOTE | 2024-03-23 13:05 | CASEMGMT ---
Patient is ready for discharge to TCU. CEASAR spoke with patient and he was aware. Patient asked CEASAR to notify his daughter. CEASAR called patient's daughter Lashell and let her know. She is aware patient will be able to wear clothes while in TCU and not a hospital gown. She will bring clothes over later today. CEASAR told Lashell how to get to TCU. Lashell also asked CEASAR to call her when they are taking patient over to TCU. Patient is being moved to [facility] now. CEASAR called Lashell and let her know this information. Plan: d/c to [facility] TCU under skilled level of care. Waleska BURGESS
== END 2024-03-23 13:07 | disposition skilled nursing facility (03) | DRG 321 ==
LOC: ED 16:02 → PCU 21:29
PROVIDERS: Internal Medicine Nephrology; Specialist; Admitting Provider Internal Medicine; Emergency Provider Emergency Medicine; PCP Family Medicine Geriatric Medicine; Visit Provider Student in an Organized Health Care Education/Training Program
DX: I21.4 Non-ST elevation (NSTEMI) myocardial infarction (principal); J18.9 Pneumonia, unspecified organism; I13.0 Hypertensive heart and chronic kidney disease with heart failure and stage 1 through stage 4 chronic kidney disease, or unspecified chronic kidney disease; E87.0 Hyperosmolality and hypernatremia; I50.32 Chronic diastolic (congestive) heart failure; N18.4 Chronic kidney disease, stage 4 (severe); J96.11 Chronic respiratory failure with hypoxia; N17.9 Acute kidney failure, unspecified; N39.0 Urinary tract infection, site not specified; R04.2 Hemoptysis; B95.2 Enterococcus as the cause of diseases classified elsewhere; E11.22 Type 2 diabetes mellitus with diabetic chronic kidney disease; D63.1 Anemia in chronic kidney disease; E03.9 Hypothyroidism, unspecified; I70.90 Unspecified atherosclerosis; D53.9 Nutritional anemia, unspecified; E11.42 Type 2 diabetes mellitus with diabetic polyneuropathy; E78.00 Pure hypercholesterolemia, unspecified; I44.0 Atrioventricular block, first degree; I49.8 Other specified cardiac arrhythmias; K21.9 Gastro-esophageal reflux disease without esophagitis; E11.69 Type 2 diabetes mellitus with other specified complication; I25.10 Atherosclerotic heart disease of native coronary artery without angina pectoris; Z79.84 Long term (current) use of oral hypoglycemic drugs; Z87.891 Personal history of nicotine dependence; Z95.5 Presence of coronary angioplasty implant and graft
CPT/HCPCS: 36415; 71045; 71046; 73502; 76770; 80048; 80053; 80061; 81001; 82274; 82436; 82570; 82728; 82784; 82962; 83520; 83540; 83550; 83735; 83880; 83930; 83935; 84100; 84133; 84156; 84165; 84300; 84439; 84443; 84484; 85014; 85018; 85025; 85027; 85045; 85610; 85730; 86037; 86334; 86850; 86900; 86901; 86920; 86922; 87077; 87086; 87088; 87186; 92928; 93005; 93306; 93454; 94668; 94762; 97110; 97116; 97162; 97166; 97530; 97535; 97802; 97803; 99152; 99153; 99252; 99285; J7030; J7040; J7050; P9016; Q9957; Q9967; A4216; C1725; C1769; C1874; C1887; C1894; C8929; C9600; G0463; J0744; J1327; J2916

== ENCOUNTER 2024-03-23 13:29 | Inpatient (IN) | payer MEDICARE, SELFPAY ==
[2024-03-23 13:35] VITALS: BP 142/66; PULSE 63; RESP 18; TEMP 36.6; O2SAT 95
[2024-03-23 13:47] VITALS: BMI 33.8
--- NOTE | 2024-03-23 14:02 | NURSING ---
Resident declines all vaccines, including most recent covid vaccine.
[2024-03-23 17:46] LABS: Bedside Glucose 162 mg/dL (74-106)
[2024-03-23] MEDS: Tamsulosin HCl 0.4 MG Capsule PO (19:02)
--- NOTE | 2024-03-23 19:08 | PCM.PN.REN ---
Subjective Subjective no new events Objective Data Objective Data Vital Signs: Vital Signs Temp Pulse Resp BP Pulse Ox O2 Del Method O2 Flow Rate 98 F 63 18 142/66 H 95 Nasal Cannula 2 03/23/24 13:35 03/23/24 13:35 03/23/24 13:35 03/23/24 13:35 03/23/24 13:35 03/23/24 13:35 03/23/24 13:35 FiO2 95 03/23/24 13:35 Oxygen Flow Rate (L/min) 2 Oxygen Delivery Method Nasal Cannula Weight: 95.164 kg Body Mass Index (BMI) 33.8 Lab / Micro Data Labs: Laboratory Results - last 24 hr 03/23/24 17:26: POC Glucose 162 H Physical Exam Narrative Alert awake oriented x 3 no obvious distress no pallor no icterus no JVD s1s2 no murmurs lungs clear abdomen soft no organomegaly no edema no cyanosis Assessment & Plan Assessment/Plan (1) KALYN (acute kidney injury): PLAN: Cr better serologies ok possible dc today
--- NOTE | 2024-03-23 19:59 | HP.PCM_ITS ---
HPI - General General Date of Admission: 03/23/24 Date of Service: 03/23/24 Chief Complaint: Here for rehabilitation. HPI Narrative JUNIOR MACIAS, is a 83 Male who presents with followin03/15/2024 [facility] ED with chest pain. Chest pain with exertion for 2 weeks. Bilateral upper extremity numbness, dyspnea. COPD on 4 liters oxygen chronically. Troponin 412, Creatinine 5.22, BUn 148. Heparin drip for nstemi. 03/15/2024 Admit [facility]. Aspirin, beta vahe, heparin drip, cardiology consult, cycle enzymes for nstemi. Nephrology consult, renal ultrasound for acute kidney injury. Ceftriaxone IV, UA, C+S for UTI. 03/16/2024 Echo Normal LV size. LVSF normal. EF 65%. Mild concentric LVH. Stage 1 diastolic dysfunction. 03/16/2024 Left heart catheterization showed RCA totally occluded. LAD moderate disease. Stent to left circumflex artery. 03/17/2024 Comfortable, eating breakfast. Aspirin, Brilinta, high intensity statin, for CAD s/p stent. Check stool for hemoglobin 7.5. Ceftriaxone IV for UTI, urine culture GPC, possible enterococcus. 03/18/2024 Hemoptysis, dysuria, hemoglobin 7.5. Chest X-ray for hemoptysis. 03/19/2024 Transfuse 1 unit PRBC. Chest X-ray shows pneumonia. Levaquin IV for pneumonia/UTI. 03/20/2024 Trace hemoptysis, oxygen 2 liters. Hemoglobin 8.9. Levaquin IV for pneumonia, Hemoptysis improving. 03/21/2024 Feeling better, scant hemoptysis. Consult Pulmonary for hemoptysis. Levaquin IV for pneumonia/UTI. 03/22/2024 Scant hemoptysis. Levaquin IV for pneumonia/UTI. Pulmonary recommended holding Brilinta if rajiv hemoptysis, transfuse as needed. 03/23/2024 Admit to TCU with debility, here for rehabilitation, strengthening, prior to discharge home alone. 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 Vitamin D deficiency SOB (shortness of breath) GERD (gastroesophageal reflux disease) Heart failure with preserved ejection fraction Diabetic polyneuropathy Hypothyroidism CKD (chronic kidney disease), stage IV Atherosclerotic cardiovascular disease COPD (chronic obstructive pulmonary disease) Chronic hypoxemic respiratory failure Pneumonia due to COVID-19 virus Hypertension PVCs (premature ventricular contractions) Anemia Obesity (BMI 30.0-34.9) Diabetes mellitus, type II HLD (hyperlipidemia) Chest pain Home Medications ?Medication ?Instructions ?Recorded ?Last Taken ?Type famotidine 40 mg tablet 40 mg PO DAILY GERD 07/13/18 Unknown History pen needles, lancets, test strips See Rx Instructions .Route 04/23/22 Unknown Rx diabetic .COMPLEX insulin #100 ea glimepiride 4 mg tablet 4 mg PO DAILY DIABETES 06/23/22 Unknown History melatonin 10 mg tablet 10 mg PO QHS SLEEP 06/23/22 03/22/24 History levothyroxine 25 mcg tablet 25 mcg PO DAILY THYROID 07/09/22 03/23/24 History ascorbate calcium (vitamin C) 500 500 mg PO DAILY SUPPLEMENT 03/09/24 03/23/24 History mg tablet furosemide 40 mg tablet 40 mg PO BID EDEMA 03/09/24 Unknown History gabapentin 300 mg capsule 300 mg PO BID NEUROPATHY 03/09/24 Unknown History polysaccharide iron complex 150 mg 150 mg PO DAILY SUPPLEMENT 03/09/24 Unknown History iron capsule (Ferrex) amlodipine 5 mg tablet 5 mg PO DAILY bp #30 tabs 03/23/24 03/23/24 Rx aspirin 81 mg tablet,delayed 81 mg PO BREAKFAST heart #30 tabs 03/23/24 03/23/24 Rx release atorvastatin 40 mg tablet 40 mg PO DAILY cholesterol #30 tabs 03/23/24 Unknown Rx carvedilol 6.25 mg tablet 6.25 mg PO BID bp #60 tabs 03/23/24 03/23/24 Rx insulin degludec 100 unit/mL (3 15 unit (0.15 mL) subcut BID 03/23/24 03/23/24 Rx mL) subcutaneous pen (Tresiba DIABETES #15 mL FlexTouch U-100 insulin) levofloxacin 500 mg tablet 500 mg PO DAILY pneomonia, uti #5 03/23/24 Unknown Rx tabs nitroglycerin 0.4 mg sublingual 0.4 mg sublingual Q5M PRN 03/23/24 03/16/24 Rx tablet Cardiac/Chest Pain #30 tabs tamsulosin 0.4 mg capsule 0.4 mg PO DAILY@1730 urinary 03/23/24 03/22/24 Rx retention #30 caps ticagrelor 90 mg tablet (Brilinta) 90 mg PO BID acute coronary 03/23/24 03/23/24 Rx syndrome #60 tabs Allergy/AdvReac Type Severity Reaction Status Date / Time No Known Allergies Allergy Verified 03/15/24 15:09 Family History Brother Diabetes Mother Diabetes Sister Diabetes Father Heart disease Surgical History Stented coronary artery (03/16/24) History of appendectomy Social History (Updated 03/23/24 @ 20:[address] Kain Bhakta MD) household members: none Smoking Status: Former smoker alcohol intake: never substance use type: does not use ROS Constitutional Constitutional: Denies chills, fever(s) or weight gain ENT HEENT: Denies headache(s), nasal congestion or nasal discharge Cardiovascular Cardiovascular: Denies chest pain or palpitations Respiratory/Chest Respiratory/Chest: Reports hemoptysis; Denies cough, excessive phlegm production or shortness of breath with exertion Gastrointestinal Gastrointestinal: Denies abdominal pain, nausea or vomiting Genitourinary Genitourinary: Denies dysuria Musculoskeletal Musculoskeletal: Denies joint pain or joint swelling Integumentary Integumentary: Denies rash or wounds Neurologic Neurologic: Denies focal weakness, numbness or tingling Psychiatric Psychiatric: Denies anxiety, auditory hallucinations, depression, homicidal ideation or suicidal ideation Vital Signs Vital Signs Vital Signs: 03/23/24 13:35 03/23/24 13:35 Temperature 98 F Temperature Source Temporal Pulse Rate 63 63 Pulse Rhythm Regular Pulse Strength Normal (2+) Respiratory Rate 18 18 Respiratory Effort Normal Short of Breath Labored Respiratory Depth Deep Respiratory Pattern Normal Blood Pressure 142/66 H Blood Pressure Mean 91 Blood Pressure Source Monitor Blood Pressure Position Sitting Blood Pressure Location Left Arm Pulse Ox 95 Oxygen Delivery Method Nasal Cannula Nasal Cannula Oxygen Flow Rate (L/min) 2 2 Fraction of Inspired Oxygen (FIO2) 95 Weight Weight: 95.164 kg Body Mass Index (BMI) 33.8 Physical Exam Const alert General Appearance: cooperative HEENT normocephalic Eyes PERRL and EOMs intact bilaterally Neck supple, no JVD and no carotid bruits Resp normal respiratory effort, normal air movement and clear to auscultation bilaterally Cardio regular rate and regular rhythm GI normal to inspection, nondistended, normoactive bowel sounds, non-tender and non-distended Extremity normal capillary refill General Extremity: Negative for edema Skin no rashes or lesions noted General Skin Exam: no breakdown Psych affect normal Appearance: appropriate Results Lab / Micro Data Labs: Laboratory Results - last 24 hr 03/23/24 17:26: POC Glucose 162 H Assessment & Plan Assessment/Plan (1) Debility: (2) Chest pain: QUALIFIERS: Chest pain type: unspecified Qualified Code(s): R07.9 - Chest pain, unspecified (3) Non-ST elevation ND (NSTEMI): (4) Coronary artery disease: (5) Stented coronary artery: (6) KALYN (acute kidney injury): (7) Urinary tract infection: (8) Pneumonia: (9) Hemoptysis: (10) COPD (chronic obstructive pulmonary disease): QUALIFIERS: COPD type: emphysema Emphysema type: centrilobular Qualified Code(s): J43.2 - Centrilobular emphysema (11) GERD (gastroesophageal reflux disease): (12) Diabetes mellitus: (13) Insomnia: (14) Hypothyroidism: (15) Neuropathic pain: (16) Iron deficiency anemia: (17) Essential (primary) hypertension: PLAN: Plan 83 year old male with below past medical history hospitalized for nstemi, underwent heart catheterization with stent, complicated by urinary tract infection, pneumonia, hemoptysis, acute kidney injury, admitted to TCU with debility, here for rehabilitation, strengthening, prior to discharge home alone. * Debility - PT/OT. * Pain - Tylenol 1000mg q6 prn pain (1-10). * Bowel - senna/colace 1 tablet bid, Magnesium citrate 300mL po daily prn, Dulcolax 10mg pr daily prn. * Adult immunization - Administer pneumonia vaccine, covid vaccine, flu vaccine as appropriate. * DVT prophylaxis - Hold on DAPT, and anemia. * Hypertension - Coreg 6.25mg bid, Amlodipine 5mg daily. * Iron deficiency anemia - Ferrex 150mg daily, Vitamin C 500mg daily. * Coronary artery disease s/p stent - Coreg 6.25mg bid, Brilinta 90mg bid, Aspirin 81mg daily, NTG 0.4mg sl q5m prn. * Hyperlipidemia - Atorvastatin 40mg qhs. * GERD - Famotidine 40mg daily. * Chronic HFpEF - Coreg 6.25mg bid, Furosemide 40mg bidcm. * Neuropathic pain - Gabapentin 300mg bid. * Diabetes Mellitus II - Glimepiride 4mg daily, Glargine 15 units bid. * Pneumonia/UTI - Levaquin 500mg daily thru 03/28/2024. * Hypothyroidism - Levothyroxine 25mcg daily. * Insomnia - Melatonin 10mg qhs. * BPH - Tamsulosin 0.4mg daily.
[2024-03-23 21:28] LABS: Bedside Glucose 206 mg/dL (74-106)
[2024-03-23] MEDS: Gabapentin 300 MG Capsule PO (22:18)
[2024-03-23] MEDS: Insulin Glargine-YFGN 100 UNIT/ML Pen 15 UNIT SC (22:18)
[2024-03-23] MEDS: TICAGRELOR 90 MG TABLET PO (22:19)
[2024-03-23] MEDS: MELATONIN 10 MG TABLET PO (22:19)
[2024-03-23] MEDS: Carvedilol 6.25 MG Tablet PO (22:20)
[2024-03-23] MEDS: Atorvastatin Calcium 40 MG Tablet PO (22:20)
[2024-03-23] MEDS: Senna/Docusate Sodium 1 Tablet PO (22:21)
[2024-03-24] MEDS: Furosemide 40 MG Tablet PO ×2 (05:24→14:39)
[2024-03-24] MEDS: Levothyroxine 25 MCG TABLET PO (05:24)
[2024-03-24 05:46] LABS: Bedside Glucose 139 mg/dL (74-106)
[2024-03-24 06:38] LABS: Absolute Lymphocyte Count 1.16 X10^3/uL (0.83-4.51); Basophil# 0.02 X10^3/uL; Basophil% 0.2 % (0-1); Eosinophil# 0.35 X10^3/uL; Eosinophils% 3.8 % (0-5); Hematocrit 27.1 % (40-54); Hemoglobin 8.8 g/dL (13.0-16.5); Lymphocyte # 1.16 X10^3/ul (0.83-4.51); Lymphocyte % 12.5 % (19-41); Mean Corp Hgb Conc 32.5 g/dL (32-36); Mean Corpuscular Hgb 31.1 pg (27.0-32.0); Mean Corpuscular Volume 95.8 fL (80-94); Mean Platelet Vol. 9.9 fl (6.2-12.0); Monocyte# 0.67 X10^3/uL; Monocyte% 7.2 % (0-10); NRBC Flagged by Analyzer 0 % (0-5); Neutrophil # 6.98 X10^3/uL (2.7-7.7); Neutrophil % 75.2 % (47-70); Platelet Count 153 K/mm3 (150-450); RBC Distribution Width CV 13.5 % (11.6-14.6); Red Blood Count 2.83 M/mm3 (4.6-6.2); White Blood Count 9.3 K/mm3 (4.4-11.0)
[2024-03-24 07:03] LABS: Anion Gap 3 (5-15); BUN 50 mg/dL (7-18); BUN/Creat Ratio 26.2 RATIO (10-20); Calcium,Total 8.6 mg/dL (8.5-10.1); Chloride 113 mmol/L (98-107); Creatinine, Serum 1.91 mg/dL (0.70-1.30); EST Glomerular Filtration Rate 36 mL/min (>60); Est Glom Filt Rate - Afr Amer 43 mL/min (>60); Estimated Creatinine Clearance 31.64 ml/min; Glucose 151 mg/dL (74-106); Potassium 4.3 mmol/L (3.5-5.1); Sodium Level 141 mmol/L (136-145)
[2024-03-24] MEDS: Insulin Glargine-YFGN 100 UNIT/ML Pen 15 UNIT SC (08:39)
[2024-03-24] MEDS: TICAGRELOR 90 MG TABLET PO ×2 (08:40→21:02)
[2024-03-24] MEDS: Famotidine 20 MG Tablet 40 MG PO (08:40)
[2024-03-24] MEDS: levoFLOXacin 500 MG Tablet PO (08:40)
[2024-03-24] MEDS: Glimepiride 4 MG Tablet PO (08:40)
[2024-03-24] MEDS: Iron Polysaccharide Complex 150 MG CAPSULE PO (08:40)
[2024-03-24] MEDS: Aspirin E.C. 81 MG Tablet PO (08:41)
[2024-03-24] MEDS: Ascorbic Acid 500 MG Tablet PO (08:41)
[2024-03-24] MEDS: Senna/Docusate Sodium 1 Tablet PO ×2 (08:41→21:02)
[2024-03-24] MEDS: amLODIPine 5 MG Tablet PO (08:41)
[2024-03-24] MEDS: Carvedilol 6.25 MG Tablet PO ×2 (08:41→21:02)
[2024-03-24] MEDS: Gabapentin 300 MG Capsule PO ×2 (08:43→21:02)
[2024-03-24] MEDS: 0.9% Saline Lock 10 ML Syringe IV ×2 (08:47→21:03)
[2024-03-24] MEDS: Tuberculin,Purif.prot.deriv. 50 TU/ML Vial 0.1 ML ID (09:16)
[2024-03-24 09:36] VITALS: O2SAT 99
[2024-03-24 09:48] VITALS: BP 114/55; PULSE 77; RESP 16; TEMP 36.3; O2SAT 99
[2024-03-24 11:25] LABS: Bedside Glucose 207 mg/dL (74-106)
[2024-03-24 12:05] VITALS: O2SAT 99
[2024-03-24 14:44] VITALS: BP 141/65; PULSE 77
--- NOTE | 2024-03-24 16:30 | CASEMGMT ---
Social Work SW met with patient to complete initial assessment. Introduced self and role. Verified/updated contacts. Pt confirmed code status as DNR-CCA, no intubation. SW requested pt have family provide copies of advanced directives. Educated to [facility] insurance with NRD 03/29 and continued stay is not guaranteed with each review. Pt's goal is to return home alone at [facility]. SW will continue to follow for DC planning. Kelli Vanegas QUALITY CONSULTANT SECURITY SOLUTIONS ENGINEER
[2024-03-24] MEDS: Glucagon 1 MG/ML Syringe SC (17:30)
[2024-03-24] MEDS: Tamsulosin HCl 0.4 MG Capsule PO (17:30)
[2024-03-24 18:08] LABS: Bedside Glucose 99 mg/dL (74-106)
[2024-03-24] MEDS: Atorvastatin Calcium 40 MG Tablet PO (21:02)
[2024-03-24] MEDS: MELATONIN 10 MG TABLET PO (21:02)
[2024-03-24 21:15] VITALS: BP 122/67; PULSE 89
[2024-03-24 21:38] LABS: Bedside Glucose 205 mg/dL (74-106)
[2024-03-25] MEDS: Furosemide 40 MG Tablet PO ×2 (05:23→17:03)
[2024-03-25] MEDS: levoFLOXacin 250 MG Tablet PO (05:23)
[2024-03-25] MEDS: Levothyroxine 25 MCG TABLET PO (05:23)
[2024-03-25 05:31] VITALS: BP 133/67; PULSE 64; RESP 16
[2024-03-25 06:46] LABS: Bedside Glucose 86 mg/dL (74-106)
[2024-03-25 07:15] VITALS: O2SAT 98
[2024-03-25 09:11] VITALS: O2SAT 93
[2024-03-25] MEDS: amLODIPine 5 MG Tablet PO (09:14)
[2024-03-25] MEDS: Glimepiride 4 MG Tablet PO (09:14)
[2024-03-25] MEDS: Iron Polysaccharide Complex 150 MG CAPSULE PO (09:14)
[2024-03-25] MEDS: Famotidine 20 MG Tablet PO (09:14)
[2024-03-25] MEDS: Senna/Docusate Sodium 1 Tablet PO ×2 (09:14→20:31)
[2024-03-25] MEDS: TICAGRELOR 90 MG TABLET PO ×2 (09:14→20:31)
[2024-03-25] MEDS: Aspirin E.C. 81 MG Tablet PO (09:14)
[2024-03-25] MEDS: Ascorbic Acid 500 MG Tablet PO ×2 (09:14)
[2024-03-25] MEDS: Gabapentin 300 MG Capsule PO ×2 (09:19→20:32)
[2024-03-25] MEDS: Carvedilol 6.25 MG Tablet PO ×2 (09:22→20:31)
[2024-03-25 09:26] VITALS: BP 111/52; PULSE 76
[2024-03-25 10:40] LABS: Bedside Glucose 54 mg/dL (74-106)
[2024-03-25 10:40] LABS: Bedside Glucose 53 mg/dL (74-106)
[2024-03-25 11:33] LABS: Bedside Glucose 237 mg/dL (74-106)
[2024-03-25] MEDS: 0.9% Saline Lock 10 ML Syringe IV (11:47)
--- NOTE | 2024-03-25 13:18 | NURSING ---
Policy Writer Sales Note; Activity Asset: Adam Ponce is independent in his choice of daily activities. He would like the daily newspaper when available. He enjoys reading , watching tv visiting w/family and friends. He welcomes visits from the physician interventional cardiologist and therapy dog when available. Staff will remind him of weekly activities and respect his right to say no.
[2024-03-25 13:38] VITALS: BP 102/54; PULSE 76; RESP 18; TEMP 36.1; O2SAT 96
--- NOTE | 2024-03-25 16:03 | CHAPLAIN ---
Type of Pastoral Visit ___ Initial Visit _x__ Follow-up Visit ___ On-call Visit ___ General Patient Visit ___ Spiritual Assessment ___ Family Conference ___ Bereavement ___ Rapid Response ___ Code Blue ___ Other (describe below) Pastoral Care Referral From _x__ Patient ___ Family ___ Nurse ___ Physician ___ Admitting Supervisor ___ Cell Tender Helper ___ Other (describe below) Sacrament/Intervention _x__ Active listening ___ Anointing ___ Taoist ___ Bereavement ___ Communion _x__ Mary exploration ___ ___ Life review _x__ Prayer ___ Reconciliation ___ Sacrament of Sick ___ Supportive presence ___ Wedding ___ Other (describe below) Pastoral Comments patient is sitting up in the chair and watching TV; pt reports on his progress and yet some concern on matters before he can return home; pt states that the therapies are working and he is content with staying in TCU for now; pt has a daughter that is very attentive; pt talks about other family matters and sees God at work there too; pt is pleasant and welcoming of visit and prayers
--- NOTE | 2024-03-25 16:58 | PHA.CONS_ITS ---
TCU RX Drug Regimen Review Subjective/Objective Subjective/Objective Subjective: 83 year old male with below past medical history hospitalized for nstemi, underwent heart catheterization with stent, complicated by urinary tract infection, pneumonia, hemoptysis, acute kidney injury. Admitted to TCU with debility, here for rehabilitation, strengthening, prior to discharge home alone. Objective: Allergies No Known Allergies Allergy (Verified 03/15/24 15:09) Current Medications Generic Name Dose Route Start Last Admin Trade Name Freq PRN Reason Stop Dose Admin Acetaminophen 1,000 mg 03/23/24 20:19 Acetaminophen 500 Mg Tablet PO Q6H PRN PRN Pain Score 1-10 Amlodipine Besylate 5 mg 03/24/24 10:00 03/25/24 09:14 Amlodipine 5 Mg Tablet PO 5 mg DAILY MARJORIE Administration Protocol Ascorbic Acid 500 mg 03/24/24 10:00 03/25/24 09:14 Ascorbic Acid 500 Mg Tablet PO 500 mg DAILY MARJORIE Administration Aspirin 81 mg 03/24/24 08:00 03/25/24 09:14 Aspirin E.C. 81 Mg Tablet PO 81 mg BREAKFAST MARJORIE Administration Atorvastatin Calcium 40 mg 03/23/24 22:00 03/24/24 21:02 Atorvastatin Calcium 40 Mg Tablet PO 40 mg QHS MARJORIE Administration Bisacodyl 10 mg 03/23/24 14:11 Bisacodyl 10 Mg Suppository RC DAILY PRN PRN Constipation Carvedilol 6.25 mg 03/23/24 22:00 03/25/24 09:22 Carvedilol 6.25 Mg Tablet PO 6.25 mg BID MARJORIE Administration Protocol Famotidine 20 mg 03/25/24 10:00 03/25/24 09:14 Famotidine 20 Mg Tablet PO 20 mg DAILY MARJORIE Administration Furosemide 40 mg 03/24/24 06:00 03/25/24 05:23 Furosemide 40 Mg Tablet PO 40 mg BIDLX MARJORIE Administration Protocol Gabapentin 300 mg 03/23/24 22:00 03/25/24 09:19 Gabapentin 300 Mg Capsule PO 300 mg BID MARJORIE Administration Glimepiride 4 mg 03/24/24 08:00 03/25/24 09:14 Glimepiride 4 Mg Tablet PO 4 mg DAILYCM MARJORIE Administration Levofloxacin 250 mg 03/25/24 06:00 03/25/24 05:23 Levofloxacin 250 Mg Tablet PO 03/28/24 06:01 250 mg DAILY@0600 COUNT INCLUDES THE [facility] Administration Levothyroxine Sodium 25 mcg 03/24/24 06:00 03/25/24 05:23 Levothyroxine 25 Mcg Tablet PO 25 mcg 0600 COUNT INCLUDES THE [facility] Administration Magnesium Citrate 300 ml 03/23/24 20:19 Magnesium Citrate 300 Ml PO DAILY PRN Constipation Melatonin 10 mg 03/23/24 22:00 03/24/24 21:02 Melatonin 10 Mg Tablet PO 10 mg QHS MARJORIE Administration Nitroglycerin 0.4 mg 03/23/24 14:30 Nitroglycerin (Inpatient Use) 0.4 Mg Tab.Subl SL Q5M PRN CARDIAC/CHEST PAIN Polysaccharide Iron Complex 150 mg 03/24/24 10:00 03/25/24 09:14 Iron Polysaccharide Complex 150 Mg Capsule PO 150 mg DAILY MARJORIE Administration Senna/Docusate Sodium 1 tablet 03/23/24 22:00 03/25/24 09:14 Senna/Docusate Sodium 1 Tablet PO 1 tablet BID MARJORIE Administration Sodium Chloride 10 - 40 ml 03/23/24 13:51 03/25/24 11:47 0.9% Saline Lock 10 Ml Syringe IV 10 ml UD PRN Administration SALINE FLUSH Tamsulosin HCl 0.4 mg 03/23/24 17:30 03/24/24 17:30 Tamsulosin Hcl 0.4 Mg Capsule PO 0.4 mg DAILY@1730 COUNT INCLUDES THE [facility] Administration Ticagrelor 90 mg 03/23/24 22:00 03/25/24 09:14 Ticagrelor 90 Mg Tablet PO 90 mg BID MARJORIE Administration Tuberculin PPD 0.1 ml 03/31/24 10:00 Tuberculin,Purif.Prot.Deriv. 50 Tu/Ml Vial ID 03/31/24 10:01 X1 ONE Problem List Essential (primary) hypertension (Acute) Iron deficiency anemia (Acute) Neuropathic pain (Acute) Insomnia (Acute) Diabetes mellitus (Acute) Pneumonia (Acute) Urinary tract infection (Acute) Coronary artery disease (Acute) Debility (Acute) Hemoptysis (Acute) Stented coronary artery (Chronic 03/16/24) KALYN (acute kidney injury) (Acute) Non-ST elevation UT (NSTEMI) (Acute) GERD (gastroesophageal reflux disease) (Acute) Hypothyroidism (Acute) COPD (chronic obstructive pulmonary disease) (Chronic) Chest pain (Acute) Vital Signs Temp Pulse Resp BP Pulse Ox O2 Del Method O2 Flow Rate 97.0 F L 76 18 102/54 L 96 Nasal Cannula 3 03/25/24 13:38 03/25/24 13:38 03/25/24 13:38 03/25/24 13:38 03/25/24 13:38 03/25/24 13:38 03/25/24 14:16 FiO2 95 03/23/24 13:35 Oxygen Flow Rate (L/min) 3 Oxygen Delivery Method Nasal Cannula Weight: 95.164 kg Body Mass Index (BMI) 33.8 Sodium 141 mmol/L (136-145) 03/24/24 06:25 Potassium 4.3 mmol/L (3.5-5.1) 03/24/24 06:25 Chloride 113 mmol/L (98-107) H 03/24/24 06:25 Carbon Dioxide 25.0 mmol/L (21.0-32.0) 03/24/24 06:25 Anion Gap 3 (5-15) L 03/24/24 06:25 BUN 50 mg/dL (7-18) H 03/24/24 06:25 Creatinine 1.91 mg/dL (0.70-1.30) H 03/24/24 06:25 Est GFR (MDRD) Af Amer 43 mL/min (>60) L 03/24/24 06:25 Est GFR (MDRD) Non-Af 36 mL/min (>60) L 03/24/24 06:25 BUN/Creatinine Ratio 26.2 RATIO (10-20) H 03/24/24 06:25 Glucose 151 mg/dL (74-106) H 03/24/24 06:25 Assessment/Plan: 1. Pain: Tylenol 1000mg Q6 PO PRN for pain (1-10). Resident has not needed any PRN doses. Please continue to monitor pain and PRN usage. 2. Bowel: Docusate/senna 50mg/8.6mg take one tablet by mouth BID, magnesium citrate 300mL PO PRN, dulcolax 10mg CT daily PRN. Please continue to monitor for constipation and PRN usage. Last documented bowel movement was 03/23. 3. DVT Prophylaxis/Coronary Artery Disease s/p stent/HFpEF/Hypertension: Aspirin 81mg PO daily at breakfast, Ticagrelor 90 mg PO BID, Amlodipine 5mg PO daily, Carvedilol 6.25mg PO BID, Furosemide 40mg PO BIDLX, Nitroglycerin 0.4mg SL Q5M PRN. Resident has not needed any PRN nitroglycerin. Please continue to monitor for S/S of bleeding/stroke, hemoglobin (last 8.8), chest pain/tightness, edema, weight gain, blood pressure (last 102/54mmHg), and heart rate. 4. Type II Diabetes Mellitus: Glimepiride 4mg PO daily. Please consider getting an A1C level as the last documented level was in 2020. Thanks. Please continue to monitor for S/S of hyper/hypoglycemia and blood sugar (last 151). 5. Pneumonia/UTI: Levofloxacin 250mg PO daily through 03/28/24. Please continue to monitor for S/S of recurrent infection, temperature, renal function, and tendon pain/tendonitis. 6. Iron Deficiency Anemia: Vitamin C 500mg PO daily and Ferrex 150mg PO daily. Please continue to monitor RBC (last 2.83), iron (188 ug/dL), and S/S of anemia.? 7. Hypothyroidism: Levothyroxine 25mcg PO daily. Please continue to monitor TSH (last 5.260), free T4 (last 0.75), and S/S of hypothyroidism.? 8. GERD: Famotidine 40mg PO daily. Please continue to monitor for S/S of GERD. 9. Hyperlipidemia: Atorvastatin 40mg PO daily. Please continue to monitor lipid levels (last 03/16/24), AST (last 29), ALT (last 14), and for muscle pain. 10. BPH: Tamsulosin 0.4mg PO daily. Please continue to monitor for incontinence and dizziness/lightheadedness.? Assessment/Plan for indications treated with psychotropic medications: 1. Neuropathic pain: Gabapentin 300mg PO BID. GDR not appropriate as this medication is being used for pain. Please continue to monitor for confusion, renal function, falls/fractures (BEERs medication). 2. Insomnia: Melatonin 10mg PO QHS. GDR is not appropriate as this medication is being used for sleep-aid. Please continue to monitor for confusion and falls/fractures. Medical chart and medication regimen reviewed. The following medication irregularities or issues were identified: 1. Type II Diabetes: The patient does not have a current A1C level (last once from 2020). Please consider obtaining an updated A1c level to evaluate medical therapy, thank you. Date Date of Note: 03/25/24
[2024-03-25] MEDS: Tamsulosin HCl 0.4 MG Capsule PO (17:04)
[2024-03-25 17:22] LABS: Bedside Glucose 162 mg/dL (74-106)
[2024-03-25] MEDS: Atorvastatin Calcium 40 MG Tablet PO (20:31)
[2024-03-25] MEDS: MELATONIN 10 MG TABLET PO (20:31)
[2024-03-25 21:56] LABS: Bedside Glucose 239 mg/dL (74-106)
--- NOTE | 2024-03-25 23:23 | NURSING ---
Patient had told WAREHOUSE DELIVERY DRIVER that he was having chest pain prior to WAREHOUSE DELIVERY DRIVER going into room to assist patient. Patient stated he was not having anymore at this time. Will continue to monitor.
[2024-03-26] MEDS: Furosemide 40 MG Tablet PO ×2 (05:46→14:23)
[2024-03-26] MEDS: levoFLOXacin 250 MG Tablet PO (05:46)
[2024-03-26] MEDS: Levothyroxine 25 MCG TABLET PO (05:46)
[2024-03-26] MEDS: 0.9% Saline Lock 10 ML Syringe IV (05:48)
[2024-03-26 05:51] VITALS: BP 106/56; PULSE 64
[2024-03-26 06:55] VITALS: O2SAT 99
[2024-03-26 07:02] LABS: Bedside Glucose 144 mg/dL (74-106)
[2024-03-26] MEDS: Senna/Docusate Sodium 1 Tablet PO ×2 (09:11→21:24)
[2024-03-26] MEDS: amLODIPine 5 MG Tablet PO (09:11)
[2024-03-26] MEDS: Carvedilol 6.25 MG Tablet PO ×2 (09:11→21:24)
[2024-03-26] MEDS: Iron Polysaccharide Complex 150 MG CAPSULE PO (09:11)
[2024-03-26] MEDS: Gabapentin 300 MG Capsule PO ×2 (09:11→21:24)
[2024-03-26] MEDS: TICAGRELOR 90 MG TABLET PO ×2 (09:11→21:24)
[2024-03-26] MEDS: Glimepiride 4 MG Tablet PO (09:11)
[2024-03-26] MEDS: Famotidine 20 MG Tablet PO (09:11)
[2024-03-26] MEDS: Aspirin E.C. 81 MG Tablet PO (09:11)
[2024-03-26 11:08] VITALS: BP 109/50; PULSE 71; RESP 18; TEMP 36.6; O2SAT 99
[2024-03-26 13:49] LABS: Bedside Glucose 221 mg/dL (74-106)
[2024-03-26] MEDS: Tamsulosin HCl 0.4 MG Capsule PO (17:14)
--- NOTE | 2024-03-26 18:17 | NURSING ---
Blood sugar readings checked today post meals.
[2024-03-26 18:33] LABS: Bedside Glucose 246 mg/dL (74-106)
[2024-03-26 21:20] VITALS: BP 126/59; PULSE 72; RESP 18
[2024-03-26] MEDS: Atorvastatin Calcium 40 MG Tablet PO (21:23)
[2024-03-26] MEDS: MELATONIN 10 MG TABLET PO (21:24)
[2024-03-26 21:30] LABS: Bedside Glucose 244 mg/dL (74-106)
[2024-03-27 06:05] VITALS: BP 135/56; PULSE 67
[2024-03-27] MEDS: Levothyroxine 25 MCG TABLET PO (06:06)
[2024-03-27] MEDS: Furosemide 40 MG Tablet PO ×2 (06:06→13:17)
[2024-03-27] MEDS: 0.9% Saline Lock 10 ML Syringe IV ×3 (06:06→21:04)
[2024-03-27] MEDS: levoFLOXacin 250 MG Tablet PO (06:06)
[2024-03-27 06:26] LABS: Bedside Glucose 159 mg/dL (74-106)
[2024-03-27] MEDS: Glimepiride 4 MG Tablet PO (08:28)
[2024-03-27] MEDS: Iron Polysaccharide Complex 150 MG CAPSULE PO (08:30)
[2024-03-27] MEDS: Aspirin E.C. 81 MG Tablet PO (08:30)
[2024-03-27] MEDS: TICAGRELOR 90 MG TABLET PO ×2 (08:30→21:01)
[2024-03-27] MEDS: Carvedilol 6.25 MG Tablet PO ×2 (08:30→21:00)
[2024-03-27] MEDS: Famotidine 20 MG Tablet PO (08:31)
[2024-03-27] MEDS: amLODIPine 5 MG Tablet PO (08:31)
[2024-03-27] MEDS: Senna/Docusate Sodium 1 Tablet PO ×2 (08:32→21:01)
[2024-03-27] MEDS: Ascorbic Acid 500 MG Tablet PO (08:32)
[2024-03-27] MEDS: Gabapentin 300 MG Capsule PO ×2 (08:34→21:00)
[2024-03-27 08:39] VITALS: BP 101/51; PULSE 72; O2SAT 98
[2024-03-27 10:30] VITALS: PULSE 68; RESP 18; O2SAT 95
--- NOTE | 2024-03-27 10:59 | NURSING ---
Call placed to Dr. Bhakta. New order to change BGTs to AM. VORB.
[2024-03-27 13:21] VITALS: BP 120/53; PULSE 69
[2024-03-27 13:22] VITALS: RESP 18; TEMP 36.1
--- NOTE | 2024-03-27 14:41 | NURSING ---
PT HAD BLOOD IN HIS SPUTUM. HAD HEMOPTYSIS, MOISTURE TO OXYGEN YESTERDAY. RN AWARE,DR MELLO WILL BE NOTIFIED.
[2024-03-27] MEDS: Tamsulosin HCl 0.4 MG Capsule PO (17:04)
[2024-03-27 20:59] VITALS: BP 114/54; PULSE 79
[2024-03-27] MEDS: Atorvastatin Calcium 40 MG Tablet PO (21:01)
[2024-03-27] MEDS: MELATONIN 10 MG TABLET PO (21:01)
[2024-03-28] MEDS: Furosemide 40 MG Tablet PO ×2 (05:43→13:39)
[2024-03-28] MEDS: Levothyroxine 25 MCG TABLET PO (05:44)
[2024-03-28] MEDS: levoFLOXacin 250 MG Tablet PO (05:44)
[2024-03-28 06:37] LABS: Bedside Glucose 165 mg/dL (74-106)
[2024-03-28] MEDS: Ascorbic Acid 500 MG Tablet PO (08:28)
[2024-03-28] MEDS: Aspirin E.C. 81 MG Tablet PO (08:28)
[2024-03-28] MEDS: Glimepiride 4 MG Tablet PO (08:28)
[2024-03-28] MEDS: amLODIPine 5 MG Tablet PO (08:28)
[2024-03-28] MEDS: Senna/Docusate Sodium 1 Tablet PO ×2 (08:28→23:31)
[2024-03-28] MEDS: Famotidine 20 MG Tablet PO (08:29)
[2024-03-28] MEDS: Iron Polysaccharide Complex 150 MG CAPSULE PO (08:29)
[2024-03-28] MEDS: Carvedilol 6.25 MG Tablet PO ×2 (08:29→23:31)
[2024-03-28] MEDS: Gabapentin 300 MG Capsule PO ×2 (08:30→23:30)
[2024-03-28 09:47] VITALS: BP 107/55; PULSE 73; RESP 17; TEMP 36.2; O2SAT 100
--- NOTE | 2024-03-28 09:55 | RAD_ITS ---
STUDY: X-RAY CHEST REASON FOR EXAM: Male, 83 years old. Hemoptysis. TECHNIQUE: PA and lateral views of the chest. COMPARISON: Comparison is made with prior study dated March 18, 2024. FINDINGS: Stable increased interstitial markings in both lungs with areas of confluence worse in the lower lobes suggestive of chronic interstitial fibrosis. There is no demonstrated pleural abnormality. There is mild cardiac enlargement. Normal mediastinum and shiva. Normal visualized pulmonary arteries. There is atherosclerotic calcification of the aortic arch with tortuosity. There are diffuse degenerative changes of the visualized thoracic spine. Normal visualized ribs, clavicles, and shoulders. There is no demonstrated abnormality of the visualized soft tissue structures of the upper abdomen. RAD/Chest PA and Lateral IMPRESSION: Stable examination suggestive of chronic interstitial fibrosis. Electronically Signed: Berlin Webb MD at 14:32 EST ,
[2024-03-28 13:41] VITALS: BP 103/50; PULSE 75
[2024-03-28] MEDS: Tamsulosin HCl 0.4 MG Capsule PO (17:03)
[2024-03-28] MEDS: MELATONIN 10 MG TABLET PO (23:31)
[2024-03-28] MEDS: Atorvastatin Calcium 40 MG Tablet PO (23:32)
[2024-03-28 23:39] VITALS: BP 150/61; PULSE 71
[2024-03-29] MEDS: Acetaminophen 500 MG Tablet 1000 MG PO (01:44)
[2024-03-29 01:46] VITALS: O2SAT 97
[2024-03-29 06:13] VITALS: BP 128/49; PULSE 71
[2024-03-29] MEDS: Furosemide 40 MG Tablet PO ×2 (06:17→13:06)
[2024-03-29] MEDS: Levothyroxine 25 MCG TABLET PO (06:17)
--- NOTE | 2024-03-29 06:18 | NURSING ---
Productive cough w/ lg amount of thick, dark bloody sputum x1 and small amount of light bloody sputum x1. No clots noted w/ each episode. In no acute distress. Denies any chest pain. Will continue to monitor.
[2024-03-29 06:49] LABS: Bedside Glucose 268 mg/dL (74-106)
[2024-03-29 07:47] VITALS: O2SAT 96
--- NOTE | 2024-03-29 08:29 | EKG12_ITS ---
Test Reason : CP Blood Pressure : */* mmHG Vent. Rate : 68 BPM Atrial Rate : 68 BPM P-R Int : 252 ms QRS Dur : 90 ms QT Int : 378 ms P-R-T Axes : 54 -27 7 degrees QTcB Int : 401 ms Sinus rhythm with 1st degree A-V block Otherwise normal ECG When compared with ECG of 19-Mar-2024 05:48, Nonspecific T wave abnormality no longer evident in Lateral leads Confirmed by MAIK EVANS, ROLANDO ([id number]), school photograph editor SJ HANKINS ([id number]) on 03/30/2024 2:11:33 PM Referred By: Kain Bhakta Confirmed By: ROLANDO PLEITEZ MD
[2024-03-29 08:48] VITALS: BMI 34.7
[2024-03-29 09:40] VITALS: BP 109/48; PULSE 74; RESP 22; TEMP 36.7; O2SAT 100
[2024-03-29] MEDS: Carvedilol 6.25 MG Tablet PO ×2 (09:56→20:55)
[2024-03-29] MEDS: amLODIPine 5 MG Tablet PO (09:57)
[2024-03-29] MEDS: Senna/Docusate Sodium 1 Tablet PO ×2 (09:57→20:55)
[2024-03-29] MEDS: Famotidine 20 MG Tablet PO (09:57)
[2024-03-29] MEDS: Ascorbic Acid 500 MG Tablet PO (09:57)
[2024-03-29] MEDS: Aspirin E.C. 81 MG Tablet PO (09:57)
[2024-03-29] MEDS: Glimepiride 4 MG Tablet PO (09:57)
[2024-03-29] MEDS: Iron Polysaccharide Complex 150 MG CAPSULE PO (09:57)
[2024-03-29] MEDS: Gabapentin 300 MG Capsule PO ×2 (10:00→20:55)
[2024-03-29] MEDS: Tamsulosin HCl 0.4 MG Capsule PO (17:06)
[2024-03-29] MEDS: MELATONIN 10 MG TABLET PO (20:55)
[2024-03-29] MEDS: Doxepin Hydrochloride 10 MG Capsule PO (20:55)
[2024-03-29] MEDS: Atorvastatin Calcium 40 MG Tablet PO (20:55)
[2024-03-30] MEDS: Levothyroxine 25 MCG TABLET PO (05:44)
[2024-03-30] MEDS: Furosemide 40 MG Tablet PO ×2 (05:44→13:49)
--- NOTE | 2024-03-30 05:47 | NURSING ---
Patient coughed up some sputum with a moderate amount of blood in it during the night. Has had no other issues. Will continue to monitor.
[2024-03-30 06:26] LABS: Bedside Glucose 222 mg/dL (74-106)
[2024-03-30 08:07] VITALS: O2SAT 94
[2024-03-30] MEDS: Carvedilol 6.25 MG Tablet PO ×2 (08:28→22:21)
[2024-03-30] MEDS: Aspirin E.C. 81 MG Tablet PO (08:28)
[2024-03-30] MEDS: Iron Polysaccharide Complex 150 MG CAPSULE PO (08:28)
[2024-03-30] MEDS: Famotidine 20 MG Tablet PO (08:29)
[2024-03-30] MEDS: amLODIPine 5 MG Tablet PO (08:29)
[2024-03-30] MEDS: Ascorbic Acid 500 MG Tablet PO (08:29)
[2024-03-30] MEDS: Senna/Docusate Sodium 1 Tablet PO ×2 (08:29→22:22)
[2024-03-30] MEDS: Glimepiride 4 MG Tablet PO (08:29)
[2024-03-30] MEDS: Gabapentin 300 MG Capsule PO ×2 (08:31→22:22)
--- NOTE | 2024-03-30 13:49 | NURSING ---
Vehicle Calibration Engineer note; MDS for 03/30/2024 complete
--- NOTE | 2024-03-30 14:05 | CASEMGMT ---
Social Work IDT met with patient and dtr for care plan meeting. Discussed patient's progress in PT/OT/ST/SN. Educated to [facility] insurance with NRD 03/29 and continued stay is not guaranteed with each review. Pt's goal is to return home alone. MANAGER BEVERAGE reported pt scored 29/50 on BCAT and discussed concerns with safety awareness, problem solving, managing meds and finances. Pt will need to return to physical PLOF with being Abhilash. MANAGER BEVERAGE will give further recommendations on DC with further exercises and testing. Dtr can continue to assist with IADLs. SW discussed and provided resources for [place], private duty HEAT TREATER HELPER, and distribution driver's rehab program. SW also to contact [facility] for potential HEAT TREATER HELPER services. SW will continue to follow for DC planning. SW completed BIMS () and PHQ-2 () completed for MDS assessment. DARIANA AndersW
[2024-03-30 14:27] VITALS: O2SAT 97
[2024-03-30 15:55] VITALS: BP 120/55; PULSE 68; RESP 16; TEMP 35.8; O2SAT 98
[2024-03-30] MEDS: Tamsulosin HCl 0.4 MG Capsule PO (17:26)
[2024-03-30 22:20] VITALS: PULSE 75; O2SAT 99
[2024-03-30] MEDS: Doxepin Hydrochloride 10 MG Capsule PO (22:22)
[2024-03-30] MEDS: Atorvastatin Calcium 40 MG Tablet PO (22:22)
[2024-03-30] MEDS: MELATONIN 10 MG TABLET PO (22:22)
[2024-03-31 06:00] VITALS: BP 119/55; PULSE 63
[2024-03-31] MEDS: Levothyroxine 25 MCG TABLET PO (06:04)
[2024-03-31] MEDS: Furosemide 40 MG Tablet PO ×2 (06:04→13:46)
[2024-03-31 06:06] LABS: Absolute Neutrophil Count 4.7 X10^3/uL (2.0-7.7); Basophil# 0.04 X10^3/uL; Basophil% 0.5 % (0-1); Eosinophil# 0.18 X10^3/uL; Eosinophils% 2.4 % (0-5); Hemoglobin 8.7 g/dL (13.0-16.5); Lymphocyte % 23.1 % (19-41); Mean Corp Hgb Conc 32.2 g/dL (32-36); Mean Corpuscular Hgb 30.5 pg (27.0-32.0); Mean Corpuscular Volume 94.7 fL (80-94); Mean Platelet Vol. 9.8 fl (6.2-12.0); Monocyte# 0.62 X10^3/uL; Monocyte% 8.4 % (0-10); NRBC Flagged by Analyzer 0 % (0-5); Neutrophil # 4.74 X10^3/uL (2.7-7.7); Neutrophil % 64.6 % (47-70); Platelet Count 167 K/mm3 (150-450); RBC Distribution Width CV 13.3 % (11.6-14.6); RBC Distribution Width SD 45.7 fl (35.1-43.9); Red Blood Count 2.85 M/mm3 (4.6-6.2); White Blood Count 7.4 K/mm3 (4.4-11.0)
[2024-03-31 06:33] LABS: Bedside Glucose 236 mg/dL (74-106)
[2024-03-31 06:47] LABS: Anion Gap 4 (5-15); BUN 59 mg/dL (7-18); BUN/Creat Ratio 28.1 RATIO (10-20); Calcium,Total 8.4 mg/dL (8.5-10.1); Chloride 102 mmol/L (98-107); EST Glomerular Filtration Rate 32 mL/min (>60); Est Glom Filt Rate - Afr Amer 39 mL/min (>60); Estimated Creatinine Clearance 29.14 ml/min; Glucose 253 mg/dL (74-106); Potassium 4.4 mmol/L (3.5-5.1); Sodium Level 136 mmol/L (136-145)
[2024-03-31 07:15] VITALS: O2SAT 98
[2024-03-31] MEDS: Gabapentin 300 MG Capsule PO ×2 (08:25→21:05)
[2024-03-31] MEDS: Carvedilol 6.25 MG Tablet PO ×2 (08:25→21:05)
[2024-03-31] MEDS: Aspirin E.C. 81 MG Tablet PO (08:25)
[2024-03-31] MEDS: Glimepiride 4 MG Tablet PO (08:25)
[2024-03-31] MEDS: Iron Polysaccharide Complex 150 MG CAPSULE PO (08:26)
[2024-03-31] MEDS: Ascorbic Acid 500 MG Tablet PO (08:26)
[2024-03-31] MEDS: Senna/Docusate Sodium 1 Tablet PO ×2 (08:26→21:05)
[2024-03-31] MEDS: amLODIPine 5 MG Tablet PO (08:26)
[2024-03-31] MEDS: Famotidine 20 MG Tablet PO (08:26)
--- NOTE | 2024-03-31 09:24 | NURSING ---
Precert obtained for CTA of the Chest. Authorization number: [id number]
[2024-03-31] MEDS: Tuberculin,Purif.prot.deriv. 50 TU/ML Vial 0.1 ML ID (10:16)
--- NOTE | 2024-03-31 10:30 | NURSING ---
Precert obtained for MRI of the pancreas. Case reference #: [id number]. Authorization Number: [id number]
[2024-03-31 14:14] VITALS: BP 109/52; PULSE 73; RESP 18; TEMP 36.3; O2SAT 98
--- NOTE | 2024-03-31 15:25 | CASEMGMT ---
Social Work SW faxed [facility] [place] to [facility]. Kelli Vanegas, RADIATION CONTROL SPECIALIST CONTACT CENTRE SUPERVISOR
--- NOTE | 2024-03-31 16:53 | NURSING ---
Pt. notified of current covid outbreak. Pt. daughter notified per pt. request.
[2024-03-31] MEDS: Tamsulosin HCl 0.4 MG Capsule PO (17:08)
[2024-03-31] MEDS: Doxepin Hydrochloride 10 MG Capsule PO (21:05)
[2024-03-31] MEDS: Atorvastatin Calcium 40 MG Tablet PO (21:05)
[2024-03-31] MEDS: MELATONIN 10 MG TABLET PO (21:05)
[2024-03-31 22:00] VITALS: BP 112/62; PULSE 73
[2024-04-01] MEDS: Levothyroxine 25 MCG TABLET PO (05:29)
[2024-04-01] MEDS: Furosemide 40 MG Tablet PO ×2 (05:29→16:01)
[2024-04-01 06:50] LABS: Bedside Glucose 275 mg/dL (74-106)
[2024-04-01] MEDS: Insulin Lispro 100 UNIT/ML INSULN.PEN SC ×2 (07:59→12:22)
[2024-04-01 08:38] VITALS: BP 119/50; PULSE 77; RESP 18; TEMP 36.2; O2SAT 99
[2024-04-01] MEDS: Glimepiride 4 MG Tablet PO (08:40)
[2024-04-01] MEDS: amLODIPine 5 MG Tablet PO (08:40)
[2024-04-01] MEDS: Iron Polysaccharide Complex 150 MG CAPSULE PO (08:40)
[2024-04-01] MEDS: Aspirin E.C. 81 MG Tablet PO (08:40)
[2024-04-01] MEDS: Famotidine 20 MG Tablet PO (08:40)
[2024-04-01] MEDS: Senna/Docusate Sodium 1 Tablet PO ×2 (08:41→20:12)
[2024-04-01] MEDS: Carvedilol 6.25 MG Tablet PO ×2 (08:41→20:12)
[2024-04-01] MEDS: Ascorbic Acid 500 MG Tablet PO (08:41)
[2024-04-01] MEDS: Gabapentin 300 MG Capsule PO ×2 (08:45→20:11)
[2024-04-01 09:16] VITALS: O2SAT 97
[2024-04-01 11:48] LABS: Bedside Glucose 359 mg/dL (74-106)
--- NOTE | 2024-04-01 13:55 | NURSING ---
Updated Dr. Bhakta on elevated BGT with lunch. New order for Humalog 10 units SC x1 now. VORB.
[2024-04-01] MEDS: Insulin Lispro 100 UNIT/ML INSULN.PEN 10 UNIT SC ×2 (16:00→17:58)
[2024-04-01 16:04] VITALS: BP 123/54; PULSE 69
[2024-04-01 17:04] LABS: Bedside Glucose 246 mg/dL (74-106)
[2024-04-01] MEDS: Tamsulosin HCl 0.4 MG Capsule PO (17:57)
[2024-04-01] MEDS: Insulin Glargine-YFGN 100 UNIT/ML Pen 30 UNIT SC (20:11)
[2024-04-01] MEDS: MELATONIN 10 MG TABLET PO (20:12)
[2024-04-01] MEDS: Atorvastatin Calcium 40 MG Tablet PO (20:12)
[2024-04-01] MEDS: Doxepin Hydrochloride 10 MG Capsule PO (20:12)
[2024-04-01 21:29] VITALS: O2SAT 99
[2024-04-01 21:55] LABS: Bedside Glucose 148 mg/dL (74-106)
[2024-04-02] MEDS: Levothyroxine 25 MCG TABLET PO (05:08)
[2024-04-02] MEDS: Furosemide 40 MG Tablet PO ×2 (05:08→13:54)
[2024-04-02 06:20] LABS: Bedside Glucose 158 mg/dL (74-106)
[2024-04-02] MEDS: Glimepiride 4 MG Tablet PO (08:54)
[2024-04-02] MEDS: Insulin Lispro 100 UNIT/ML INSULN.PEN 10 UNIT SC ×3 (08:54→17:12)
[2024-04-02] MEDS: Aspirin E.C. 81 MG Tablet PO (08:54)
[2024-04-02] MEDS: Famotidine 20 MG Tablet PO (09:00)
[2024-04-02] MEDS: Gabapentin 300 MG Capsule PO ×2 (09:00→22:30)
[2024-04-02] MEDS: amLODIPine 5 MG Tablet PO (09:00)
[2024-04-02] MEDS: Iron Polysaccharide Complex 150 MG CAPSULE PO (09:00)
[2024-04-02] MEDS: Carvedilol 6.25 MG Tablet PO ×2 (09:00→22:30)
[2024-04-02] MEDS: Ascorbic Acid 500 MG Tablet PO (09:01)
[2024-04-02] MEDS: Senna/Docusate Sodium 1 Tablet PO ×2 (09:01→22:14)
[2024-04-02 10:15] VITALS: O2SAT 99
[2024-04-02 11:57] LABS: Bedside Glucose 201 mg/dL (74-106)
[2024-04-02 15:25] VITALS: O2SAT 99
[2024-04-02 16:00] VITALS: BP 135/59; PULSE 70; RESP 16; TEMP 36.3; O2SAT 94
[2024-04-02 16:21] LABS: Bedside Glucose 134 mg/dL (74-106)
[2024-04-02] MEDS: Tamsulosin HCl 0.4 MG Capsule PO (17:12)
[2024-04-02 21:46] LABS: Bedside Glucose 255 mg/dL (74-106)
[2024-04-02] MEDS: Atorvastatin Calcium 40 MG Tablet PO (22:14)
[2024-04-02] MEDS: MELATONIN 10 MG TABLET PO (22:14)
[2024-04-02] MEDS: Doxepin Hydrochloride 10 MG Capsule PO (22:14)
[2024-04-02] MEDS: Insulin Glargine-YFGN 100 UNIT/ML Pen 30 UNIT SC (22:15)
[2024-04-02 22:25] VITALS: BP 105/55; PULSE 82; RESP 17; O2SAT 96
[2024-04-02] MEDS: Acetaminophen 500 MG Tablet 1000 MG PO (22:30)
[2024-04-03 06:13] LABS: Bedside Glucose 151 mg/dL (74-106)
[2024-04-03 06:40] VITALS: O2SAT 96
[2024-04-03 06:43] VITALS: BP 111/61; PULSE 62
[2024-04-03] MEDS: Levothyroxine 25 MCG TABLET PO (06:44)
[2024-04-03] MEDS: Furosemide 40 MG Tablet PO ×2 (06:44→13:19)
[2024-04-03 08:45] VITALS: BP 108/46; PULSE 68; RESP 17; TEMP 36.2; O2SAT 97
[2024-04-03] MEDS: Carvedilol 6.25 MG Tablet PO ×2 (08:48→22:28)
[2024-04-03] MEDS: Aspirin E.C. 81 MG Tablet PO (08:48)
[2024-04-03] MEDS: Glimepiride 4 MG Tablet PO (08:48)
[2024-04-03] MEDS: Insulin Lispro 100 UNIT/ML INSULN.PEN 10 UNIT SC ×3 (08:48→18:05)
[2024-04-03] MEDS: Famotidine 20 MG Tablet PO (08:49)
[2024-04-03] MEDS: Senna/Docusate Sodium 1 Tablet PO ×2 (08:49→22:28)
[2024-04-03] MEDS: Iron Polysaccharide Complex 150 MG CAPSULE PO (08:49)
[2024-04-03] MEDS: amLODIPine 5 MG Tablet PO (08:49)
[2024-04-03] MEDS: Ascorbic Acid 500 MG Tablet PO (08:50)
[2024-04-03] MEDS: Gabapentin 300 MG Capsule PO ×2 (08:51→22:28)
[2024-04-03 11:25] LABS: Bedside Glucose 272 mg/dL (74-106)
[2024-04-03 13:15] VITALS: BP 110/49; PULSE 68
[2024-04-03 16:27] LABS: Bedside Glucose 115 mg/dL (74-106)
[2024-04-03] MEDS: Tamsulosin HCl 0.4 MG Capsule PO (18:05)
[2024-04-03 22:12] LABS: Bedside Glucose 239 mg/dL (74-106)
[2024-04-03 22:25] VITALS: BP 124/59; PULSE 69
[2024-04-03] MEDS: Doxepin Hydrochloride 10 MG Capsule PO (22:29)
[2024-04-03] MEDS: Atorvastatin Calcium 40 MG Tablet PO (22:29)
[2024-04-03] MEDS: MELATONIN 10 MG TABLET PO (22:29)
[2024-04-03] MEDS: Insulin Glargine-YFGN 100 UNIT/ML Pen 30 UNIT SC (22:30)
--- NOTE | 2024-04-04 01:19 | NURSING ---
Left vm for CEASAR Pereira, to update on resident's request that he would like to go home today. Will report to oncoming nurse.
[2024-04-04] MEDS: Furosemide 40 MG Tablet PO ×2 (05:20→13:45)
[2024-04-04] MEDS: Levothyroxine 25 MCG TABLET PO (05:20)
[2024-04-04 05:21] VITALS: BP 105/54; PULSE 65
[2024-04-04 06:16] LABS: Bedside Glucose 190 mg/dL (74-106)
[2024-04-04 07:40] VITALS: O2SAT 98
[2024-04-04 08:09] VITALS: BP 135/55; PULSE 73; RESP 18; TEMP 36.4; O2SAT 2
[2024-04-04] MEDS: Insulin Lispro 100 UNIT/ML INSULN.PEN 10 UNIT SC ×2 (08:16→16:46)
[2024-04-04] MEDS: Carvedilol 6.25 MG Tablet PO ×2 (08:18→21:56)
[2024-04-04] MEDS: Glimepiride 4 MG Tablet PO (08:18)
[2024-04-04] MEDS: amLODIPine 5 MG Tablet PO (08:18)
[2024-04-04] MEDS: Gabapentin 300 MG Capsule PO ×2 (08:18→21:59)
[2024-04-04] MEDS: Aspirin E.C. 81 MG Tablet PO (08:18)
[2024-04-04] MEDS: Iron Polysaccharide Complex 150 MG CAPSULE PO (08:18)
[2024-04-04] MEDS: Ascorbic Acid 500 MG Tablet PO (08:19)
[2024-04-04] MEDS: Famotidine 20 MG Tablet PO (08:19)
[2024-04-04] MEDS: Senna/Docusate Sodium 1 Tablet PO ×2 (08:19→21:56)
--- NOTE | 2024-04-04 09:48 | NURSING ---
appt made with Dr Childers for f/u after stent placement for tomorrow at 1130am
[2024-04-04 11:29] LABS: Bedside Glucose 82 mg/dL (74-106)
[2024-04-04 16:41] LABS: Bedside Glucose 204 mg/dL (74-106)
[2024-04-04] MEDS: Tamsulosin HCl 0.4 MG Capsule PO (16:47)
[2024-04-04 17:43] VITALS: O2SAT 96
[2024-04-04 21:15] VITALS: BP 133/50; PULSE 68
[2024-04-04 21:34] LABS: Bedside Glucose 179 mg/dL (74-106)
[2024-04-04] MEDS: Doxepin Hydrochloride 10 MG Capsule PO (21:55)
[2024-04-04] MEDS: Atorvastatin Calcium 40 MG Tablet PO (21:56)
[2024-04-04] MEDS: MELATONIN 10 MG TABLET PO (21:56)
[2024-04-04] MEDS: Insulin Glargine-YFGN 100 UNIT/ML Pen 30 UNIT SC (21:57)
[2024-04-05] MEDS: Levothyroxine 25 MCG TABLET PO (05:24)
[2024-04-05 05:25] VITALS: BP 100/50; PULSE 67
[2024-04-05] MEDS: Furosemide 40 MG Tablet PO ×2 (05:25→13:06)
[2024-04-05 06:33] LABS: Bedside Glucose 167 mg/dL (74-106)
[2024-04-05 07:57] VITALS: O2SAT 95
[2024-04-05 08:00] VITALS: BMI 34.9
[2024-04-05 08:28] VITALS: BP 117/50; PULSE 66; RESP 16; TEMP 36.1; O2SAT 98
[2024-04-05] MEDS: Iron Polysaccharide Complex 150 MG CAPSULE PO (08:55)
[2024-04-05] MEDS: Senna/Docusate Sodium 1 Tablet PO ×2 (08:55→21:51)
[2024-04-05] MEDS: Gabapentin 300 MG Capsule PO ×2 (08:55→21:50)
[2024-04-05] MEDS: Carvedilol 6.25 MG Tablet PO ×2 (08:55→21:46)
[2024-04-05] MEDS: Ascorbic Acid 500 MG Tablet PO (08:55)
[2024-04-05] MEDS: Famotidine 20 MG Tablet PO (08:56)
[2024-04-05] MEDS: Aspirin E.C. 81 MG Tablet PO (08:56)
[2024-04-05] MEDS: Glimepiride 4 MG Tablet PO (08:56)
[2024-04-05] MEDS: Insulin Lispro 100 UNIT/ML INSULN.PEN 10 UNIT SC (08:57)
[2024-04-05] MEDS: amLODIPine 5 MG Tablet PO (08:57)
--- NOTE | 2024-04-05 10:08 | MDS.RN ---
Information for the MDS was obtained from review of the clinical record, interview of resident, staff, and direct observation of resident?s care.
--- NOTE | 2024-04-05 11:30 | NURSING ---
pt off unit to Dr andres with daughter
[2024-04-05 12:06] LABS: Bedside Glucose 86 mg/dL (74-106)
--- NOTE | 2024-04-05 12:09 | NURSING ---
pt returned from appt
[2024-04-05 12:22] VITALS: O2SAT 99
[2024-04-05 13:07] VITALS: BP 123/53; PULSE 71
--- NOTE | 2024-04-05 14:42 | CHAPLAIN ---
Type of Pastoral Visit ___ Initial Visit _x__ Follow-up Visit ___ On-call Visit ___ General Patient Visit ___ Spiritual Assessment ___ Family Conference ___ Bereavement ___ Rapid Response ___ Code Blue ___ Other (describe below) Pastoral Care Referral From _x__ Patient ___ Family ___ Nurse ___ Physician ___ Rotary Envelope Machine Operator ___ Water Control Supervisor ___ Other (describe below) Sacrament/Intervention _x__ Active listening ___ Anointing ___ Buddhist ___ Bereavement ___ Communion _x__ Mary exploration ___ ___ Life review _x__ Prayer ___ Reconciliation ___ Sacrament of Sick ___ Supportive presence ___ Wedding ___ Other (describe below) Pastoral Comments mostly a casual conversation about progress, Bible reading, and his feelings about his experience; presence and prayer welcomed for this follow up visit
[2024-04-05 16:47] LABS: Bedside Glucose 206 mg/dL (74-106)
[2024-04-05] MEDS: Tamsulosin HCl 0.4 MG Capsule PO (17:18)
[2024-04-05] MEDS: Insulin Lispro 100 UNIT/ML INSULN.PEN 7 UNIT SC (17:18)
[2024-04-05 21:35] LABS: Bedside Glucose 195 mg/dL (74-106)
[2024-04-05] MEDS: Atorvastatin Calcium 40 MG Tablet PO (21:47)
[2024-04-05] MEDS: MELATONIN 10 MG TABLET PO (21:47)
[2024-04-05] MEDS: Insulin Glargine-YFGN 100 UNIT/ML Pen 20 UNIT SC (21:49)
[2024-04-05] MEDS: Doxepin Hydrochloride 10 MG Capsule PO (21:52)
[2024-04-06] MEDS: Furosemide 40 MG Tablet PO ×2 (05:13→14:39)
[2024-04-06] MEDS: Levothyroxine 25 MCG TABLET PO (05:13)
[2024-04-06 06:33] LABS: Bedside Glucose 122 mg/dL (74-106)
[2024-04-06 06:42] VITALS: O2SAT 94
[2024-04-06] MEDS: Ascorbic Acid 500 MG Tablet PO (08:32)
[2024-04-06] MEDS: Gabapentin 300 MG Capsule PO ×2 (08:32→21:41)
[2024-04-06] MEDS: amLODIPine 5 MG Tablet PO (08:32)
[2024-04-06] MEDS: Senna/Docusate Sodium 1 Tablet PO ×2 (08:32→21:41)
[2024-04-06] MEDS: Iron Polysaccharide Complex 150 MG CAPSULE PO (08:32)
[2024-04-06] MEDS: Glimepiride 4 MG Tablet PO (08:32)
[2024-04-06] MEDS: Aspirin E.C. 81 MG Tablet PO (08:32)
[2024-04-06] MEDS: Carvedilol 6.25 MG Tablet PO ×2 (08:32→21:41)
[2024-04-06] MEDS: Famotidine 20 MG Tablet PO (08:32)
[2024-04-06 08:42] VITALS: BP 127/52; PULSE 68
[2024-04-06 09:25] VITALS: O2SAT 97
[2024-04-06 09:47] VITALS: O2SAT 95
[2024-04-06 11:48] LABS: Bedside Glucose 186 mg/dL (74-106)
[2024-04-06] MEDS: Insulin Lispro 100 UNIT/ML INSULN.PEN 7 UNIT SC ×2 (12:08→17:42)
--- NOTE | 2024-04-06 14:04 | CASEMGMT ---
Social Work SW received phone call from dtr requesting updates on insurance update and DC plans. SW educated to no outcome given from the insurance at this time, though insurance has not be staying up-to-date with reviews, and can issue a NOMNC at any time. Though, IDT is recommending continued stay. Provided update on therapy per chart. Pt is progressing well; ST noted severe to mild cognitive deficits. Though, pt is still having poor safety with O2. IDT is recommending increased assistance at DC, but has not determined final recommendations as a DC date is not set yet and more improvements can be made. Dtr stated he can potentially come to her house, but she has a two story home with the full bath on the second floor. Dtr is looking into renovating first floor half-bath into a full bath with walk-in shower, however, that is not a 'quick' fix. SW appreciated the sentiment of dtr adjusting her home to accommodate the pt, but did agree with the short-term DC plan. Explained the plan may be a SNF initially, but at the least, there needs to be more physical support for pt in the home. SW will assist with DC recommendations once known and DC date is given. Dtr agreed and appreciative of assistance. SW will continue to follow. Kelli Vanegas, DARIANA MOSELEYW
[2024-04-06 15:19] VITALS: BP 114/53; PULSE 70; RESP 20; TEMP 36.6; O2SAT 99
[2024-04-06 17:27] LABS: Bedside Glucose 166 mg/dL (74-106)
[2024-04-06] MEDS: Tamsulosin HCl 0.4 MG Capsule PO (17:42)
[2024-04-06 21:40] VITALS: BP 131/52; PULSE 71
[2024-04-06] MEDS: Atorvastatin Calcium 40 MG Tablet PO (21:41)
[2024-04-06] MEDS: MELATONIN 10 MG TABLET PO (21:41)
[2024-04-06] MEDS: Insulin Glargine-YFGN 100 UNIT/ML Pen 20 UNIT SC (21:42)
[2024-04-06] MEDS: Doxepin Hydrochloride 10 MG Capsule PO (21:42)
[2024-04-06 21:57] LABS: Bedside Glucose 183 mg/dL (74-106)
[2024-04-07] MEDS: Furosemide 40 MG Tablet PO ×2 (05:27→13:50)
[2024-04-07] MEDS: Levothyroxine 25 MCG TABLET PO (05:27)
[2024-04-07 05:55] LABS: Bedside Glucose 153 mg/dL (74-106)
[2024-04-07 06:01] LABS: Absolute Lymphocyte Count 1.83 X10^3/uL (0.83-4.51); Absolute Neutrophil Count 3.8 X10^3/uL (2.0-7.7); Basophil# 0.04 X10^3/uL; Basophil% 0.6 % (0-1); Eosinophil# 0.19 X10^3/uL; Eosinophils% 2.9 % (0-5); Hematocrit 26.3 % (40-54); Hemoglobin 8.5 g/dL (13.0-16.5); Lymphocyte # 1.83 X10^3/ul (0.83-4.51); Lymphocyte % 28.1 % (19-41); Mean Corp Hgb Conc 32.3 g/dL (32-36); Mean Corpuscular Hgb 30.6 pg (27.0-32.0); Mean Corpuscular Volume 94.6 fL (80-94); Mean Platelet Vol. 10.1 fl (6.2-12.0); Monocyte# 0.59 X10^3/uL; Monocyte% 9.1 % (0-10); NRBC Flagged by Analyzer 0 % (0-5); Neutrophil # 3.81 X10^3/uL (2.7-7.7); Neutrophil % 58.5 % (47-70); Platelet Count 138 K/mm3 (150-450); RBC Distribution Width CV 13.3 % (11.6-14.6); RBC Distribution Width SD 46.1 fl (35.1-43.9); Red Blood Count 2.78 M/mm3 (4.6-6.2); White Blood Count 6.5 K/mm3 (4.4-11.0)
[2024-04-07 07:17] LABS: Anion Gap 6 (5-15); BUN 67 mg/dL (7-18); BUN/Creat Ratio 30.6 RATIO (10-20); Calcium,Total 8.5 mg/dL (8.5-10.1); Chloride 102 mmol/L (98-107); Creatinine, Serum 2.19 mg/dL (0.70-1.30); EST Glomerular Filtration Rate 31 mL/min (>60); Est Glom Filt Rate - Afr Amer 37 mL/min (>60); Estimated Creatinine Clearance 28.03 ml/min; Glucose 156 mg/dL (74-106); Potassium 4.2 mmol/L (3.5-5.1); Sodium Level 138 mmol/L (136-145)
[2024-04-07] MEDS: Ascorbic Acid 500 MG Tablet PO (08:54)
[2024-04-07] MEDS: Aspirin E.C. 81 MG Tablet PO (08:54)
[2024-04-07] MEDS: amLODIPine 5 MG Tablet PO (08:54)
[2024-04-07] MEDS: Glimepiride 4 MG Tablet PO (08:54)
[2024-04-07] MEDS: Iron Polysaccharide Complex 150 MG CAPSULE PO (08:54)
[2024-04-07] MEDS: Famotidine 20 MG Tablet PO (08:54)
[2024-04-07] MEDS: Carvedilol 6.25 MG Tablet PO ×2 (08:54→20:33)
[2024-04-07] MEDS: Insulin Lispro 100 UNIT/ML INSULN.PEN 7 UNIT SC ×3 (08:54→16:55)
[2024-04-07] MEDS: Senna/Docusate Sodium 1 Tablet PO ×2 (08:54→20:33)
[2024-04-07] MEDS: Gabapentin 300 MG Capsule PO ×2 (08:54→20:34)
[2024-04-07 11:00] VITALS: BP 112/46; PULSE 68; RESP 18; TEMP 36.6; O2SAT 99
[2024-04-07 11:31] LABS: Bedside Glucose 206 mg/dL (74-106)
--- NOTE | 2024-04-07 11:33 | CASEMGMT ---
Social Work CEASAR received call from CEASAR Galvan at [facility], following up the [facility] referral. CEASAR discussed pts needs at DC. Cole can have his [facility] nurse order a medical alert, and Cole can request approval for MEDICAL OFFICE TECHNOLOGY INSTRUCTOR to assist with personal care and light meal prep. CEASAR appreciative. Cole to contact dtr to update and coordinate. pt is active with [facility]. CEASAR received insurance notification of LCD 04/08, DC 04/09, despite after hours NOMNC issuance. CEASAR phoned dtr to update. Dtr prefers DC 04/09 vs 04/10 and can transport. Dtr confirmed she did speak with Cole and is appreciative. Dtr is aware if pt is not successful home at this time, pt may need alternative placement. CEASAR offered skilled HHC and provider list. Dtr agreeable, denied list and agreeable to [facility]. Pt needs a FWW to use vs his home rollator. CEASAR sent referral to [facility] for FWW via [employer]. CEASAR phoned referral to [facility]. Plan: DC home with support 04/09, [facility] PT/OT/ST/SN/CEASAR, FWW Kelli Vanegas SET UP PERSON ESCROW AGENT
[2024-04-07 14:20] VITALS: O2SAT 99
[2024-04-07 16:35] LABS: Bedside Glucose 174 mg/dL (74-106)
[2024-04-07] MEDS: Tamsulosin HCl 0.4 MG Capsule PO (16:55)
[2024-04-07] MEDS: Doxepin Hydrochloride 10 MG Capsule PO (20:33)
[2024-04-07] MEDS: Atorvastatin Calcium 40 MG Tablet PO (20:33)
[2024-04-07] MEDS: Insulin Glargine-YFGN 100 UNIT/ML Pen 20 UNIT SC (20:34)
[2024-04-07] MEDS: MELATONIN 10 MG TABLET PO (20:34)
[2024-04-07 21:34] LABS: Bedside Glucose 248 mg/dL (74-106)
--- NOTE | 2024-04-07 21:41 | DS.PCM_ITS ---
Providers Date of Admission: 03/23/24 Primary Care Physician: Dr. Kain Bhakta MD Reason For Visit: ACUTE CORONARY SYSTEM Diagnosis Discharge Diagnosis (1) Debility: Status: Acute Code(s): R53.81 - Other malaise (2) Chest pain: Status: Acute Code(s): R07.9 - Chest pain, unspecified Qualifiers: Chest pain type: unspecified Qualified Code(s): R07.9 - Chest pain, unspecified (3) Non-ST elevation NH (NSTEMI): Status: Resolved Code(s): I21.4 - Non-ST elevation (NSTEMI) myocardial infarction (4) Coronary artery disease: Status: Acute Code(s): I25.10 - Atherosclerotic heart disease of [place] coronary artery without angina pectoris (5) Stented coronary artery: Status: Chronic Code(s): Z95.5 - Presence of coronary angioplasty implant and graft (6) KALYN (acute kidney injury): Status: Inactive Code(s): N17.9 - Acute kidney failure, unspecified (7) Urinary tract infection: Status: Acute Code(s): N39.0 - Urinary tract infection, site not specified (8) Pneumonia: Status: Acute Code(s): J18.9 - Pneumonia, unspecified organism (9) Hemoptysis: Status: Inactive Code(s): R04.2 - Hemoptysis (10) COPD (chronic obstructive pulmonary disease): Status: Chronic Code(s): J44.9 - Chronic obstructive pulmonary disease, unspecified Qualifiers: COPD type: emphysema Emphysema type: centrilobular Qualified Code(s): J43.2 - Centrilobular emphysema (11) GERD (gastroesophageal reflux disease): Status: Acute Code(s): K21.9 - Gastro-esophageal reflux disease without esophagitis (12) Diabetes mellitus: Status: Acute Code(s): E11.9 - Type 2 diabetes mellitus without complications (13) Insomnia: Status: Acute Code(s): G47.00 - Insomnia, unspecified (14) Hypothyroidism: Status: Acute Code(s): E03.9 - Hypothyroidism, unspecified (15) Neuropathic pain: Status: Acute Code(s): M79.2 - Neuralgia and neuritis, unspecified (16) Iron deficiency anemia: Status: Acute Code(s): D50.9 - Iron deficiency anemia, unspecified (17) Essential (primary) hypertension: Status: Acute Code(s): I10 - Essential (primary) hypertension Plan 83 year old male with below past medical history hospitalized for nstemi, underwent heart catheterization with stent, complicated by urinary tract infection, pneumonia, hemoptysis, acute kidney injury, admitted to TCU with debility, here for rehabilitation, strengthening, prior to discharge home alone. * Debility - PT/OT. * Pain - Tylenol 1000mg q6 prn pain (1-10). * Bowel - senna/colace 1 tablet bid, Magnesium citrate 300mL po daily prn, Dulcolax 10mg pr daily prn. * Adult immunization - Administer pneumonia vaccine, covid vaccine, flu vaccine as appropriate. * DVT prophylaxis - Hold on DAPT, and anemia. * Hypertension - Coreg 6.25mg bid, Amlodipine 5mg daily. * Iron deficiency anemia - Ferrex 150mg daily, Vitamin C 500mg daily. * Coronary artery disease s/p stent - Coreg 6.25mg bid, Brilinta 90mg bid, Aspirin 81mg daily, NTG 0.4mg sl q5m prn. * Hyperlipidemia - Atorvastatin 40mg qhs. * GERD - Famotidine 40mg daily. * Chronic HFpEF - Coreg 6.25mg bid, Furosemide 40mg bidcm. * Neuropathic pain - Gabapentin 300mg bid. * Diabetes Mellitus II - Glimepiride 4mg daily, Glargine 15 units bid. * Pneumonia/UTI - Levaquin 500mg daily thru 03/28/2024. * Hypothyroidism - Levothyroxine 25mcg daily. * Insomnia - Melatonin 10mg qhs. * BPH - Tamsulosin 0.4mg daily. Medications at Discharge Home Medications famotidine 40 mg tablet 40 mg PO DAILY GERD 07/13/18 glimepiride 4 mg tablet 4 mg PO DAILY DIABETES 06/23/22 levothyroxine 25 mcg tablet 25 mcg PO DAILY THYROID 07/09/22 ascorbate calcium (vitamin C) 500 mg tablet 500 mg PO DAILY SUPPLEMENT 03/09/24 gabapentin 300 mg capsule 300 mg PO BID NEUROPATHY 03/09/24 polysaccharide iron complex 150 mg iron capsule (Ferrex) 150 mg PO DAILY SUPPLEMENT 03/09/24 aspirin 81 mg tablet,delayed release 81 mg PO BREAKFAST heart #30 tabs 03/23/24 insulin degludec 100 unit/mL (3 mL) subcutaneous pen (Tresiba FlexTouch U-100 insulin) 15 unit (0.15 mL) subcut BID DIABETES #15 mL 03/23/24 nitroglycerin 0.4 mg sublingual tablet 0.4 mg sublingual Q5M PRN Cardiac/Chest Pain #30 tabs 03/23/24 acetaminophen 500 mg tablet 1,000 mg (2 x 500 mg) PO Q6H PRN PRN Pain Score 1-10 #0 tabs 04/07/24 amlodipine 5 mg tablet 5 mg PO DAILY 30 days #30 tabs 04/07/24 atorvastatin 40 mg tablet 40 mg PO QHS 30 days #30 tabs 04/07/24 carvedilol 6.25 mg tablet 6.25 mg PO BID 30 days #60 tabs 04/07/24 doxepin 10 mg capsule 10 mg PO QHS 30 days #30 caps 04/07/24 furosemide 40 mg tablet 40 mg PO BIDLX 30 days #60 tabs 04/07/24 tamsulosin 0.4 mg capsule 0.4 mg PO DAILY@1730 30 days #30 caps 04/07/24 ticagrelor 90 mg tablet (Brilinta) 90 mg PO BID 30 days #60 tabs 04/07/24 Hospital Course Operations None Procedures Cardiac catheterization Summary of Care Provided Minutes Spent on Discharge: 35 Hospital Course: 83 year old male with below past medical history hospitalized for nstemi, underwent heart catheterization with stent, complicated by urinary tract infection, pneumonia, hemoptysis, acute kidney injury, admitted to TCU with debility, here for rehabilitation, strengthening, prior to discharge home alone. Discharge home with support 04/09/2024, [facility] PT/OT/ST/SN/SW, FWW. FWW: Patient is unsafe to use a cane and requires a walker for ambulation in the home and the community. Physical Exam Const alert General Appearance: cooperative HEENT normocephalic Eyes PERRL and EOMs intact bilaterally Neck supple, no JVD and no carotid bruits Resp normal respiratory effort, normal air movement and clear to auscultation bilaterally Cardio regular rate and regular rhythm GI normal to inspection, nondistended, normoactive bowel sounds, non-tender and non-distended Extremity normal capillary refill General Extremity: Negative for edema Skin no rashes or lesions noted General Skin Exam: no breakdown Psych affect normal Appearance: appropriate Weight / BMI Weight Weight: 98.157 kg Body Mass Index (BMI) 34.9 ABG / Lab / Microbiology Data 04/07/24 05:26 04/07/24 05:26 Laboratory: Laboratory Results - last 24 hr 04/06/24 21:38: POC Glucose 183 H 04/07/24 05:26: WBC 6.5, RBC 2.78 L, Hgb 8.5 L, Hct 26.3 L, MCV 94.6 H, MCH 30.6, MCHC 32.3, RDW Std Deviation 46.1 H, RDW Coeff of Elmer 13.3, Plt Count 138 L, MPV 10.1, Immature Gran % (Auto) 0.800, Neut % (Auto) 58.5, Lymph % (Auto) 28.1, [facility] % (Auto) 9.1, Eos % (Auto) 2.9, Baso % (Auto) 0.6, Absolute Neuts (auto) 3.8, Absolute Lymphs (auto) 1.83, Nucleated RBC % 0, Sodium 138, Potassium 4.2, Chloride 102, Carbon Dioxide 31.0, Anion Gap 6, BUN 67 H, C reatinine 2.19 H, Estim Creat Clear Calc 28.03, Est GFR (MDRD) Af Amer 37 L, Est GFR (MDRD) Non-Af 31 L, BUN/Creatinine Ratio 30.6 H, Glucose 156 H, Calcium 8.5 04/07/24 05:37: POC Glucose 153 H 04/07/24 11:13: POC Glucose 206 H 04/07/24 16:18: POC Glucose 174 H 04/07/24 21:13: POC Glucose 248 H Microbiology: Microbiology 04/01/24 08:30 Nasal Secretion SARS-CoV-2 Antigen (Rapid) - Final 03/24/24 21:09 Sputum, Expectorated/Coughed Gram Stain - Final 03/24/24 21:09 Sputum, Expectorated/Coughed Respiratory Culture - Final D/C Instructions Discharge Diet: No restrictions Discharge Activity: Return to Normal Activity, May Shower and Use Walker Weight Bearing Status: Weight bearing as tolerated Call your doctor if you observe: Fever of 101 or Higher, Inability to urinate, Inability to have a bowel movement, Shortness of breath, Dizziness, Fainting spells, Swelling in the ankles, Chest pain and Uncontrolled pain DC O2, CPAP, BIPAP Needs PSN CPAP & BiPAP: BiPAP & CPAP Settings per PSN Fraction of Inspired Oxygen ( 95 03/23/24 13:35 FIO2) Additional Home O2 Discharge instructions: No DC home with Oxygen: Yes Home O2 MD Review: I have reviewed the oxygen testing, and the patient qualifies for home oxygen equipment and portability. The patient is mobile in the home and the community. Additional Instructions: Discharge home with support 04/09/2024, [facility] PT/OT/ST/SN/SW, FWW. FWW: Patient is unsafe to use a cane and requires a walker for ambulation in the home and the community. Please Follow Up With: Riley Childers MD When: As scheduled. Meaningful Use Info Meaningful Use Meaningful Use Diagnoses (Choose all that apply): AMI AMI/Post PCI/Angioplasty Aspirin given w/in 24hrs of arrival?: Yes ASA at discharge?: Yes Statins at discharge?: Yes Bill/ARB at discharge?: Yes Beta Marisa at discharge?: Yes Done w/ Acute NH measure.: Yes Ischemic Stroke Statin Dosing Therapy Reference: STATIN DOSE THERAPY REFERENCE: * Patients > 75 years receive moderate or high dose statin therapy. * Patients 75 years or YOUNGER should receive HIGH intensity statin dose unless contraindicated. You will be required to document reason for non-treatment if statin daily dose does not meet guidelines. HIGH DOSE STATIN THERAPY DAILY Atorvastatin > than or = to 40 mg Rosuvastatin > than or = to 20 mg Amlodipine + Atorvastatin > than or = to 2.5/40 mg Ezetimibe + Simvastatin 10/80 mg Simvastatin 80mg Discharge Plan Admission Admit Date/Time: 03/23/24 13:29 Primary Reason for Your Visit: Debility. Attending Provider: Kain Bhakta Chi Primary Care Provider: Kain Bhakta Chi Instructions Additional Instructions / Restrictions: Discharge home with support 04/09/2024, [facility] PT/OT/ST/SN/SW, FWW. FWW: Patient is unsafe to use a cane and requires a walker for ambulation in the home and the community. Discharge Orders/Prescriptions Prescriptions: New furosemide 40 mg Tablet 40 mg PO BIDLX 30 Days Qty: 60 0RF atorvastatin 40 mg Tablet 40 mg PO QHS 30 Days Qty: 30 0RF carvedilol 6.25 mg Tablet 6.25 mg PO BID 30 Days Qty: 60 0RF amlodipine 5 mg Tablet 5 mg PO DAILY 30 Days Qty: 30 0RF doxepin 10 mg Capsule 10 mg PO QHS 30 Days Qty: 30 0RF acetaminophen 500 mg Tablet 1,000 mg PO Q6H PRN PRN (Reason: Pain Score 1-10) Qty: 0 0RF tamsulosin 0.4 mg Capsule 0.4 mg PO DAILY@1730 30 Days Qty: 30 0RF Brilinta 90 mg Tablet 90 mg PO BID 30 Days Qty: 60 0RF Continued ascorbate calcium (vitamin C) 500 mg tablet 500 mg PO DAILY polysaccharide iron complex [Ferrex 150] 150 mg iron capsule 150 mg PO DAILY famotidine 40 MG tablet 40 mg PO DAILY gabapentin 300 mg capsule 300 mg PO BID glimepiride 4 mg Tablet 4 mg PO DAILY levothyroxine 25 mcg Tablet 25 mcg PO DAILY nitroglycerin 0.4 mg Tablet, Sublingual 0.4 mg sublingual Q5M PRN (Reason: Cardiac/Chest Pain) Qty: 30 2RF aspirin 81 mg Tablet,Delayed Release (Dr/Ec) 81 mg PO BREAKFAST Qty: 30 2RF insulin degludec [Tresiba FlexTouch U-100] 100 unit/mL (3 mL) insulin pen 15 unit subcut BID Qty: 15 1RF Discontinued furosemide 40 mg tablet 40 mg PO BID pen needles, lancets, test strips diabetic See Rx Instructions .ROUTE .COMPLEX Qty: 100 0RF Rx Instructions: Brand per insurance preference. Check glucose in the morning and with meals, inject sliding scale insulin per protocol. Dispense 100EA for pen needles, lancets, and test strips melatonin 10 mg Tablet 10 mg PO QHS carvedilol 6.25 mg Tablet 6.25 mg PO BID Qty: 60 2RF tamsulosin 0.4 mg Capsule 0.4 mg PO DAILY@1730 Qty: 30 2RF Brilinta 90 mg Tablet 90 mg PO BID Qty: 60 2RF amlodipine 5 mg Tablet 5 mg PO DAILY Qty: 30 2RF levofloxacin 500 mg tablet 500 mg PO DAILY Qty: 5 0RF atorvastatin 40 mg tablet 40 mg PO DAILY Qty: 30 2RF Referrals / Follow Up: Riley Childers MD [Med Staff - Active Staff] - 08/17/24 3:30 pm ( ) Kain Bhakta Chi, MD [Primary Care Provider] - 04/11/24 2:20 pm Disposition Disposition (needs filled in before D/C Order can be placed): Home Health Service
[2024-04-08] VITALS (7 sets, daily range): BP systolic 110–146; BP diastolic 52–59; PULSE 62–78; RESP 16–18; TEMP 36.2–36.9; O2SAT 95–100
[2024-04-08] MEDS: Furosemide 40 MG Tablet PO ×2 (06:18→13:35)
[2024-04-08] MEDS: Levothyroxine 25 MCG TABLET PO (06:18)
[2024-04-08 06:37] LABS: Bedside Glucose 150 mg/dL (74-106)
[2024-04-08 06:52] LABS: Hematocrit 25.6 % (40-54)
[2024-04-08] MEDS: Insulin Lispro 100 UNIT/ML INSULN.PEN 7 UNIT SC ×3 (08:34→17:33)
[2024-04-08] MEDS: Famotidine 20 MG Tablet PO (08:35)
[2024-04-08] MEDS: Ascorbic Acid 500 MG Tablet PO (08:35)
[2024-04-08] MEDS: Iron Polysaccharide Complex 150 MG CAPSULE PO (08:35)
[2024-04-08] MEDS: Carvedilol 6.25 MG Tablet PO ×2 (08:35→21:17)
[2024-04-08] MEDS: Gabapentin 300 MG Capsule PO ×2 (08:35→21:17)
[2024-04-08] MEDS: amLODIPine 5 MG Tablet PO (08:35)
[2024-04-08] MEDS: Aspirin E.C. 81 MG Tablet PO (08:35)
[2024-04-08] MEDS: Senna/Docusate Sodium 1 Tablet PO ×2 (08:35→21:18)
[2024-04-08] MEDS: Glimepiride 4 MG Tablet PO (08:35)
[2024-04-08 11:26] LABS: Bedside Glucose 155 mg/dL (74-106)
--- NOTE | 2024-04-08 12:38 | MDS.RN ---
Pain assessment for MDS completed.
--- NOTE | 2024-04-08 15:15 | CASEMGMT ---
Social Work- SW met with pt to complete the BIMS; score 15/15 and PHQ9; score 0/2. Pt reports he feels that he has made considerable progress and is looking forward to returning home soon. Pt feels confident in his abilities to preform tasks at home. Pt reports no needs at this time. SW remains available to follow. GRETA Wing
[2024-04-08 17:17] LABS: Bedside Glucose 153 mg/dL (74-106)
[2024-04-08] MEDS: Tamsulosin HCl 0.4 MG Capsule PO (17:33)
[2024-04-08] MEDS: Atorvastatin Calcium 40 MG Tablet PO (21:17)
[2024-04-08] MEDS: MELATONIN 10 MG TABLET PO (21:18)
[2024-04-08] MEDS: Doxepin Hydrochloride 10 MG Capsule PO (21:18)
[2024-04-08] MEDS: Insulin Glargine-YFGN 100 UNIT/ML Pen 20 UNIT SC (21:18)
[2024-04-08 21:47] LABS: Bedside Glucose 178 mg/dL (74-106)
[2024-04-09] MEDS: Levothyroxine 25 MCG TABLET PO (05:55)
[2024-04-09] MEDS: Furosemide 40 MG Tablet PO (05:56)
[2024-04-09 06:43] LABS: Bedside Glucose 116 mg/dL (74-106)
[2024-04-09] MEDS: Insulin Lispro 100 UNIT/ML INSULN.PEN 7 UNIT SC ×2 (07:56→12:53)
[2024-04-09] MEDS: Gabapentin 300 MG Capsule PO (07:57)
[2024-04-09] MEDS: Ascorbic Acid 500 MG Tablet PO (07:57)
[2024-04-09] MEDS: amLODIPine 5 MG Tablet PO (07:57)
[2024-04-09] MEDS: Carvedilol 6.25 MG Tablet PO (07:57)
[2024-04-09] MEDS: Glimepiride 4 MG Tablet PO (07:57)
[2024-04-09] MEDS: Senna/Docusate Sodium 1 Tablet PO (07:57)
[2024-04-09] MEDS: Iron Polysaccharide Complex 150 MG CAPSULE PO (07:57)
[2024-04-09] MEDS: Aspirin E.C. 81 MG Tablet PO (07:57)
[2024-04-09] MEDS: Famotidine 20 MG Tablet PO (07:57)
[2024-04-09 09:00] VITALS: BP 123/56; PULSE 68; RESP 18; TEMP 36.2; O2SAT 100
[2024-04-09 11:34] LABS: Bedside Glucose 206 mg/dL (74-106)
== END 2024-04-09 13:20 | disposition home health service (06) | DRG 280 ==
PROVIDERS: Admitting Provider Family Medicine Geriatric Medicine; PCP Family Medicine Geriatric Medicine; Referring Provider Family Medicine Geriatric Medicine; Visit Provider Family Medicine Geriatric Medicine
DX: I21.4 Non-ST elevation (NSTEMI) myocardial infarction (principal); J18.9 Pneumonia, unspecified organism; R04.2 Hemoptysis; I13.0 Hypertensive heart and chronic kidney disease with heart failure and stage 1 through stage 4 chronic kidney disease, or unspecified chronic kidney disease; N18.4 Chronic kidney disease, stage 4 (severe); I50.32 Chronic diastolic (congestive) heart failure; N39.0 Urinary tract infection, site not specified; E11.22 Type 2 diabetes mellitus with diabetic chronic kidney disease; E03.9 Hypothyroidism, unspecified; D50.9 Iron deficiency anemia, unspecified; J43.2 Centrilobular emphysema; E11.42 Type 2 diabetes mellitus with diabetic polyneuropathy; I25.119 Atherosclerotic heart disease of native coronary artery with unspecified angina pectoris; E78.5 Hyperlipidemia, unspecified; K21.9 Gastro-esophageal reflux disease without esophagitis; Z87.891 Personal history of nicotine dependence; Z95.5 Presence of coronary angioplasty implant and graft; Z79.02 Long term (current) use of antithrombotics/antiplatelets; Z79.84 Long term (current) use of oral hypoglycemic drugs; Z79.82 Long term (current) use of aspirin; G47.00 Insomnia, unspecified; Z79.890 Hormone replacement therapy; Z79.899 Other long term (current) drug therapy; N40.0 Benign prostatic hyperplasia without lower urinary tract symptoms; Z99.81 Dependence on supplemental oxygen
CPT/HCPCS: 36415; 71046; 80048; 82274; 82962; 85014; 85018; 85025; 87070; 87205; 87811; 92507; 92523; 93005; 94668; 97110; 97116; 97129; 97130; 97162; 97166; 97530; 97535; 97802; A4216; J1610

== ENCOUNTER → 2024-03-31 | Outpatient (CLI) | payer MEDICARE, SELFPAY ==
--- NOTE | 2024-03-31 10:35 | CT_ITS ---
HISTORY: PE/HEMOPTYSIS. TECHNIQUE: CT angiogram of the chest was performed after the intravenous administration of 75 mL Isovue-370. Post-processing of the angiographic images was performed with multiplanar reformation and 3D reconstruction. Individualized dose optimization techniques were used for this CT. 1216 images. COMPARISON: XR 03/28/2024. FINDINGS: CENTRAL AIRWAYS: Grossly patent. LUNGS: Mild emphysema with peripheral reticular scarring, mild bronchiectasis, and honeycombing in a bibasilar distribution. Mild linear and groundglass opacities in the bilateral middle and lower lobes. PLEURA: No pneumothorax or significant pleural effusion. Mild right pleural calcification. HEART/PERICARDIUM: Heart within normal limits in size with coronary artery disease. No pericardial effusion. PULMONARY ARTERIES: No filling defect. AORTA/VESSELS: No thoracic aortic aneurysm or dissection flap. Atherosclerosis present. MEDIASTINUM/MATHEW: Borderline enlarged right hilar lymph node, likely reactive. OSSEOUS STRUCTURES: Degenerative change. UPPER ABDOMEN: Colonic diverticulosis observed. CT/CTA Chest W/WO Contrast IMPRESSION: No evidence of pulmonary embolism. Mild combined pulmonary emphysema and reduces. Presence of pulmonary emphysema on CT is an independent risk factor for lung cancer. Consider LDCT lung cancer screening in the future. Mild atelectasis or inflammation the middle and lower lobes. Electronically Signed: Marce Montiel MD at 12:05 EST ,
== END | disposition home or self-care (01) ==
PROVIDERS: PCP Family Medicine Geriatric Medicine; Referring Provider Family Medicine Geriatric Medicine; Visit Provider Family Medicine Geriatric Medicine
DX: I26.99 Other pulmonary embolism without acute cor pulmonale (principal)
CPT/HCPCS: 71275; Q9967

== ENCOUNTER → 2024-04-11 | Outpatient (CLI) | payer MEDICARE, SELFPAY ==
[2024-04-11 15:27] LABS: Absolute Lymphocyte Count 1.53 X10^3/uL (0.83-4.51); Absolute Neutrophil Count 4.4 X10^3/uL (2.0-7.7); Basophil# 0.02 X10^3/uL; Basophil% 0.3 % (0-1); Eosinophil# 0.18 X10^3/uL; Eosinophils% 2.7 % (0-5); Hemoglobin 7.5 g/dL (13.0-16.5); Lymphocyte # 1.53 X10^3/ul (0.83-4.51); Lymphocyte % 22.9 % (19-41); Mean Corp Hgb Conc 31.3 g/dL (32-36); Mean Corpuscular Hgb 30.1 pg (27.0-32.0); Mean Corpuscular Volume 96.4 fL (80-94); Mean Platelet Vol. 10.5 fl (6.2-12.0); Monocyte# 0.55 X10^3/uL; Monocyte% 8.2 % (0-10); NRBC Flagged by Analyzer 0 % (0-5); Neutrophil # 4.35 X10^3/uL (2.7-7.7); Neutrophil % 65.3 % (47-70); Platelet Count 136 K/mm3 (150-450); RBC Distribution Width CV 13.7 % (11.6-14.6); RBC Distribution Width SD 48.7 fl (35.1-43.9); Red Blood Count 2.49 M/mm3 (4.6-6.2); White Blood Count 6.7 K/mm3 (4.4-11.0)
== END | disposition home or self-care (01) ==
LOC: POLAB3 14:50
PROVIDERS: PCP Family Medicine Geriatric Medicine; Visit Provider Family Medicine Geriatric Medicine
DX: I10 Essential (primary) hypertension (principal)
CPT/HCPCS: 36415; 85025

== ENCOUNTER → 2024-04-13 | Outpatient (CLI) | payer MEDICARE, SELFPAY | END | disposition home or self-care (01) | LOC: LAB 15:28 | PROVIDERS: PCP Family Medicine Geriatric Medicine; Referring Provider Family Medicine Geriatric Medicine; Visit Provider Family Medicine Geriatric Medicine | DX: D64.9 Anemia, unspecified (principal) | CPT/HCPCS: 36415; 85014; 85018; 86850; 86900; 86901; 86920 ==

== ENCOUNTER 2024-04-15 07:52 | Outpatient (CLI) | payer MEDICARE, SELFPAY ==
[2024-04-13 16:20] LABS: Hematocrit 27.8 % (40-54)
[2024-04-15] VITALS (7 sets, daily range): BP systolic 128–146; BP diastolic 46–65; PULSE 65–74; RESP 16–18; TEMP 35.8–36.2; O2SAT 99–100; BMI 35.2
[2024-04-15] MEDS: Furosemide 20 MG/2 ML VIAL IV (10:45)
== END 2024-04-15 23:59 | disposition home or self-care (01) ==
LOC: MEDOUTP 07:54
PROVIDERS: PCP Family Medicine Geriatric Medicine; Referring Provider Family Medicine Geriatric Medicine; Visit Provider Family Medicine Geriatric Medicine
DX: D64.9 Anemia, unspecified (principal)
CPT/HCPCS: 36415; 36430; 85014; 85018; 86850; 86900; 86901; 86920; P9016; A4216; J1940

== ENCOUNTER → 2024-04-21 | Outpatient (CLI) | payer MEDICARE, SELFPAY ==
[2024-04-21 15:12] LABS: Mucous, Urine 0 SEEN /hpf (<or=2+); Red Blood Cells-Urine 0 SEEN /hpf (0-5)
[2024-04-21 18:04] LABS: Color, Urine Straw (Yellow); Glucose, Dipstick Normal (Normal); Ketone-Dipstick Negative (Negative); Leukocyte Esterase-Dipstick Negative /ul (Negative); Nitrite-Dipstick Negative (Negative); Occult Blood-Urine Negative /ul (Negative); Protein-Dipstick Negative (Negative); Urine Bilirubin Dipstick Negative (Negative); Urine Clarity Clear (Clear); Urine Urobilinogen Normal (Normal)
[2024-04-21 18:27] LABS: White Blood Cells 0-5 SEEN /hpf (0-5)
[2024-04-21 18:28] LABS: Bacteria RARE /hpf (None Seen); Squamous Epithelial Cells - UA 0-5 SEEN /hpf (0-5)
== END | disposition home or self-care (01) ==
PROVIDERS: PCP Family Medicine Geriatric Medicine; Visit Provider Family Medicine Geriatric Medicine
DX: N39.0 Urinary tract infection, site not specified (principal)
CPT/HCPCS: 81001; 87086; 87088

== ENCOUNTER → 2024-05-04 | Outpatient (CLI) | payer MEDICARE, SELFPAY ==
[2024-05-04 16:36] LABS: Absolute Lymphocyte Count 1.58 X10^3/uL (0.83-4.51); Absolute Neutrophil Count 5.5 X10^3/uL (2.0-7.7); Basophil# 0.04 X10^3/uL; Basophil% 0.5 % (0-1); Eosinophil# 0.15 X10^3/uL; Eosinophils% 1.9 % (0-5); Hematocrit 32.8 % (40-54); Hemoglobin 10.8 g/dL (13.0-16.5); Lymphocyte # 1.58 X10^3/ul (0.83-4.51); Lymphocyte % 20.2 % (19-41); Mean Corp Hgb Conc 32.9 g/dL (32-36); Mean Corpuscular Volume 91.1 fL (80-94); Mean Platelet Vol. 10.3 fl (6.2-12.0); Monocyte% 6.4 % (0-10); NRBC Flagged by Analyzer 0 % (0-5); Neutrophil % 70.5 % (47-70); Platelet Count 144 K/mm3 (150-450); RBC Distribution Width CV 12.7 % (11.6-14.6); RBC Distribution Width SD 42.2 fl (35.1-43.9); White Blood Count 7.8 K/mm3 (4.4-11.0)
[2024-05-04 17:08] LABS: ALB/GLOB Ratio 0.8 RATIO (0.9-2.4); AST(SGOT) 16 U/L (15-37); Alanine Aminotransfer ALT/SGPT 16 U/L (16-61); Albumin, Serum 3.4 g/dL (3.2-5.0); Alkaline Phosphatase 97 U/L (45-117); Anion Gap 4 (5-15); BUN 36 mg/dL (7-18); BUN/Creat Ratio 18.8 RATIO (10-20); Calcium,Total 8.7 mg/dL (8.5-10.1); Chloride 102 mmol/L (98-107); Creatinine, Serum 1.92 mg/dL (0.70-1.30); EST Glomerular Filtration Rate 36 mL/min (>60); Est Glom Filt Rate - Afr Amer 43 mL/min (>60); Glucose 322 mg/dL (74-106); Potassium 4.2 mmol/L (3.5-5.1); Protein, Total 7.4 g/dL (6.4-8.2); Sodium Level 136 mmol/L (136-145)
== END | disposition home or self-care (01) ==
LOC: POLAB3 16:22
PROVIDERS: PCP Family Medicine Geriatric Medicine; Visit Provider Family Medicine Geriatric Medicine
DX: E11.65 Type 2 diabetes mellitus with hyperglycemia (principal); E55.9 Vitamin D deficiency, unspecified; I10 Essential (primary) hypertension
CPT/HCPCS: 36415; 80053; 82306; 84443; 85025

== ENCOUNTER → 2024-07-05 | Outpatient (CLI) | payer MEDICARE, SELFPAY ==
[2024-07-05 10:27] LABS: Albumin, Serum 3.4 g/dL (3.2-5.0); BUN 40 mg/dL (7-18); BUN/Creat Ratio 19.5 RATIO (10-20); Calcium,Total 9.3 mg/dL (8.5-10.1); Chloride 100 mmol/L (98-107); Creatinine, Serum 2.05 mg/dL (0.70-1.30); EST Glomerular Filtration Rate 33 mL/min (>60); Est Glom Filt Rate - Afr Amer 40 mL/min (>60); Glucose 361 mg/dL (74-106); Phosphorus 2.8 mg/dL (2.5-4.9); Potassium 3.8 mmol/L (3.5-5.1); Sodium Level 137 mmol/L (136-145)
== END | disposition home or self-care (01) ==
LOC: LAB 09:30
PROVIDERS: PCP Family Medicine Geriatric Medicine; Referring Provider Internal Medicine Nephrology; Visit Provider Internal Medicine Nephrology
DX: N17.9 Acute kidney failure, unspecified (principal)
CPT/HCPCS: 36415; 80069

== ENCOUNTER → 2024-09-29 | Outpatient (CLI) | payer MEDICARE, SELFPAY ==
--- NOTE | 2024-09-29 10:11 | CDU_ITS ---
Reason For Study Reason For Study: Rt Carotid Bruit Rt. Velocities/BP Lt. Velocities/BP Prox CCA 133.7/27.5 cm/sec. Prox CCA 107.6/25.4 cm/sec. Mid CCA 104.7/24.9 cm/sec. Mid CCA 80.2/23.6 cm/sec. Dist CCA 98.6/22.5 cm/sec. Dist CCA 90.6/26.7 cm/sec. Prox ICA 62.1/16.7 cm/sec. Prox ICA 107.8/35.2 cm/sec. Mid ICA 99.5/29.7 cm/sec. Mid ICA 118.0/43.6 cm/sec. Dist ICA 100.3/29.1 cm/sec. Dist ICA 133.7/40.4 cm/sec. Rt. ICA/CCA = 1.0. Lt. ICA/CCA = 1.7. Prox ECA 175.2/14.5 cm/sec. Prox ECA 190.8/9.3 cm/sec. Rt. Vert. 77.8/21.2 cm/sec. Lt. Vert. 66.0/16.9 cm/sec. Right Extracranial There is heterogeneous, irregular atherosclerotic plaque noted in the right common carotid artery. There is heterogeneous, irregular atherosclerotic plaque noted in the right internal carotid artery. There is heterogeneous, irregular atherosclerotic plaque noted in the right external carotid artery. Antegrade flow is noted in the right vertebral artery. Left Extracranial There is heterogeneous, irregular atherosclerotic plaque noted in the left common carotid artery. There is heterogeneous, irregular atherosclerotic plaque noted in the left internal carotid artery. The atherosclerotic plaque causes acoustic shadowing. There is heterogeneous, irregular atherosclerotic plaque noted in the left external carotid artery. Antegrade flow is noted in the left vertebral artery. Procedure Carotid Duplex 19349. This is a Carotid Duplex examination using B-mode, color flow and specral Doppler. The exam was diagnostic. Exam performed in department. VL/Carotid Duplex Ultrasound Interpretation Summary Mild (<50%) stenosis right extracranial internal carotid. Moderate (50-69%) stenosis left extracranial internal carotid. Patent and antegrade vertebrals bilaterally. Ordering Physician: Daisha Nelson Referring Physician: Kain Bhakta Chi Performed By: Sang Stone RVT
== END | disposition home or self-care (01) ==
LOC: CVS 10:10
PROVIDERS: PCP Family Medicine Geriatric Medicine; Visit Provider Physician Assistant Medical
DX: R09.89 Other specified symptoms and signs involving the circulatory and respiratory systems (principal)
CPT/HCPCS: 93880

== ENCOUNTER 2024-11-10 18:29 | Emergency (ER) | payer OTHER, SELFPAY ==
[2024-11-10] VITALS (12 sets, daily range): BP systolic 143–214; BP diastolic 60–137; PULSE 70–100; RESP 14–21; TEMP 36.6–36.8; O2SAT 92–100; BMI 38.0
--- NOTE | 2024-11-10 19:03 | CT_ITS ---
EXAM: CT Maxillofacial Without Intravenous Contrast CLINICAL INDICATION: TRAUMA TECHNIQUE: Axial computed tomography images of the face without intravenous contrast. This CT exam was performed using one or more of the following dose reduction techniques: automated exposure control, adjustment of the mA and/or kV according to patient size, and/or use of iterative reconstruction technique. COMPARISON: No relevant prior studies available. FINDINGS: BONES/JOINTS: No acute fracture. SOFT TISSUES: Small right frontal scalp hematoma. ORBITS: Unremarkable. SINUSES: Unremarkable. No air-fluid levels. CT/Sinus/Facial Bone IMPRESSION: 1. No acute fracture. 2. Small right frontal scalp hematoma. Reading Location: [id number]
--- NOTE | 2024-11-10 19:03 | CT_ITS ---
EXAM: CT Head Without Intravenous Contrast CLINICAL INDICATION: TRAUMA TECHNIQUE: Axial computed tomography images of the head/brain without intravenous contrast. This CT exam was performed using one or more of the following dose reduction techniques: automated exposure control, adjustment of the mA and/or kV according to patient size, and/or use of iterative reconstruction technique. COMPARISON: No relevant prior studies available. FINDINGS: BRAIN AND EXTRA-AXIAL SPACES: The cerebral and cerebellar sulci are prominent consistent with brain atrophy. Areas of decreased attenuation in the deep cerebral white matter are consistent with small vessel ischemic/degenerative changes. No acute intracranial hemorrhage, midline shift or mass effect. If symptoms persist, further evaluation with MRI is recommended. BONES/JOINTS: Unremarkable. No acute fracture. SOFT TISSUES: Unremarkable. SINUSES: Unremarkable as visualized. No acute sinusitis. MASTOID AIR CELLS: Unremarkable as visualized. No mastoid effusion. CT/Brain/Head without Contrast IMPRESSION: 1. Generalized brain atrophy. 2. Small vessel ischemic/degenerative changes. 3. No acute intracranial hemorrhage, midline shift or mass effect. If symptoms persist, further evaluation with MRI is recommended. Reading Location: [id number]
--- NOTE | 2024-11-10 19:03 | CT_ITS ---
EXAM: CT Cervical Spine Without Intravenous Contrast CLINICAL INDICATION: TRAUMA TECHNIQUE: Axial computed tomography images of the cervical spine without intravenous contrast. This CT exam was performed using one or more of the following dose reduction techniques: automated exposure control, adjustment of the mA and/or kV according to patient size, and/or use of iterative reconstruction technique. COMPARISON: No relevant prior studies available. FINDINGS: VERTEBRAE: Moderate reversal cervical spine lordosis. Degenerative facet arthropathy throughout the cervical spine. No acute fracture. DISCS/SPINAL CANAL/NEURAL FORAMINA: Degenerative disc disease throughout the cervical spine. SOFT TISSUES: Unremarkable. CT/Spine Cervical without Contras IMPRESSION: 1. No acute fracture. 2. Degenerative changes of the cervical spine as described. Reading Location: [id number]
--- NOTE | 2024-11-10 19:06 | EX.ED.GENINJ ---
HPI History of Present Illness Chief Complaint: Head Injury Narrative Narrative: 84-year-old male past medical history of chronic respiratory failure on 3 L of oxygen, hypertension, presents via EMS status post fall. He was outside walking with his cane in the rain, trying to get into his apartment when he slipped and fell forward. He states he hit his head and was dazed and confused, but denies loss of consciousness. He is also unsure of his last tetanus immunization. It was reported by EMS that he is on a blood thinner, but he cannot recall which one. He denies any neck pain. He sustained an abrasion to his right forehead into his nose, as well as a skin avulsion to his left pinky. He denies any bony pain to his hand, no other injuries. 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 Vitamin D deficiency SOB (shortness of breath) GERD (gastroesophageal reflux disease) Heart failure with preserved ejection fraction Diabetic polyneuropathy Hypothyroidism CKD (chronic kidney disease), stage IV Atherosclerotic cardiovascular disease COPD (chronic obstructive pulmonary disease) Chronic hypoxemic respiratory failure Pneumonia due to COVID-19 virus Hypertension PVCs (premature ventricular contractions) Anemia Obesity (BMI 30.0-34.9) Diabetes mellitus, type II HLD (hyperlipidemia) Chest pain Home Medications ?Medication ?Instructions ?Recorded ?Last Taken ?Type famotidine 40 mg tablet 40 mg PO DAILY GERD 07/13/18 Unknown History glimepiride 4 mg tablet 4 mg PO DAILY DIABETES 06/23/22 Unknown History levothyroxine 25 mcg tablet 25 mcg PO DAILY THYROID 07/09/22 03/23/24 History ascorbate calcium (vitamin C) 500 500 mg PO DAILY SUPPLEMENT 03/09/24 03/23/24 History mg tablet gabapentin 300 mg capsule 300 mg PO BID NEUROPATHY 03/09/24 Unknown History polysaccharide iron complex 150 mg 150 mg PO DAILY SUPPLEMENT 03/09/24 Unknown History iron capsule (Ferrex) aspirin 81 mg tablet,delayed 81 mg PO BREAKFAST heart #30 tabs 03/23/24 03/23/24 Rx release nitroglycerin 0.4 mg sublingual 0.4 mg sublingual Q5M PRN 03/23/24 03/16/24 Rx tablet Cardiac/Chest Pain #30 tabs acetaminophen 500 mg tablet 1,000 mg (2 x 500 mg) PO Q6H PRN 04/07/24 Unknown Rx PRN Pain Score 1-10 #0 tabs amlodipine 5 mg tablet 5 mg PO DAILY 30 days #30 tabs 04/07/24 Unknown Rx atorvastatin 40 mg tablet 40 mg PO QHS 30 days #30 tabs 04/07/24 Unknown Rx carvedilol 6.25 mg tablet 6.25 mg PO BID 30 days #60 tabs 04/07/24 Unknown Rx doxepin 10 mg capsule 10 mg PO QHS 30 days #30 caps 04/07/24 Unknown Rx furosemide 40 mg tablet 40 mg PO BIDLX 30 days #60 tabs 04/07/24 Unknown Rx tamsulosin 0.4 mg capsule 0.4 mg PO DAILY@1730 30 days #30 04/07/24 Unknown Rx caps insulin degludec 100 unit/mL (3 40 unit subcut BID DIABETES 09/13/24 Unknown History mL) subcutaneous pen (Tresiba FlexTouch U-100 insulin) ranolazine 500 mg tablet,extended 500 mg PO BID #60 tabs 09/13/24 Unknown Rx release,12 hr Allergy/AdvReac Type Severity Reaction Status Date / Time No Known Allergies Allergy Verified 11/10/24 18:30 Family History Brother Diabetes Mother Diabetes Sister Diabetes Father Heart disease Surgical History Stented coronary artery (03/16/24) History of appendectomy Social History household members: none Smoking Status: Former smoker alcohol intake: never substance use type: does not use ROS ROS ED ROS Narrative Review of systems positive for abrasion to right forehead, nose, no epistaxis, no neck pain. No loss of consciousness. Skin avulsion to the left fifth digit at PIP, no bony pain. No other injury. EXAM Physical Exam Narrative Exam Narrative: GCS 15. ABCs are intact. Inspection of the face/head reveals abrasions to the right forehead without active bleeding, abrasions to nose. PERRL, EOMI, no entrapment. Airway patent. Neck soft and supple without meningismus. No vertebral point tenderness or bony step-off, full range of motion without pain. Inspection of the left fifth digit does show a skin avulsion of the left PIP knuckle joint. Neurovascular intact distally, no crepitance or bony pain. Palpable radial pulse. Cardiovascular examination regular rate and rhythm. Lungs clear to auscultation bilaterally with decreased breath sounds bilaterally. Abdomen soft and nontender. No guarding or rebound. Neurological examination nonfocal, nonlateralizing. Const Vital Signs: 11/10/24 18:31 11/10/24 18:37 11/10/24 19:15 Temperature 98.3 F Temperature Source Oral Pulse Rate 100 Respiratory Rate 14 Respiratory Effort Normal Non-Labored Respiratory Depth Normal Respiratory Pattern Normal Blood Pressure 143/78 H 194/119 H Blood Pressure Mean 99 140 Pulse Ox 92 Oxygen Delivery Method Nasal Cannula Nasal Cannula Oxygen Flow Rate (L/min) 3 11/10/24 19:20 11/10/24 19:30 11/10/24 19:30 Temperature Temperature Source Pulse Rate 72 74 76 Respiratory Rate 18 16 18 Respiratory Effort Respiratory Depth Respiratory Pattern Blood Pressure 151/85 H 214/137 H Blood Pressure Mean 107 161 Pulse Ox 99 100 100 Oxygen Delivery Method Nasal Cannula Oxygen Flow Rate (L/min) 11/10/24 19:45 11/10/24 19:51 11/10/24 20:00 Temperature Temperature Source Pulse Rate 75 79 73 Respiratory Rate 19 H 19 H 18 Respiratory Effort Respiratory Depth Respiratory Pattern Blood Pressure 191/137 H 151/85 H Blood Pressure Mean 153 101 Pulse Ox 97 100 100 Oxygen Delivery Method Oxygen Flow Rate (L/min) 11/10/24 20:15 11/10/24 20:46 11/10/24 21:00 Temperature Temperature Source Pulse Rate 71 77 70 Respiratory Rate 21 H 15 18 Respiratory Effort Respiratory Depth Respiratory Pattern Blood Pressure Blood Pressure Mean Pulse Ox 99 100 100 Oxygen Delivery Method Oxygen Flow Rate (L/min) 11/10/24 21:34 Temperature Temperature Source Pulse Rate Respiratory Rate Respiratory Effort Respiratory Depth Respiratory Pattern Blood Pressure 152/65 H Blood Pressure Mean 94 Pulse Ox Oxygen Delivery Method Oxygen Flow Rate (L/min) MDM MDM MDM Narrative Medical decision making narrative: Differential diagnosis includes but not limited to as he is a head injury on anticoagulants, intracranial hemorrhage versus skull fracture versus nasal fracture versus nasal contusion. I discussed x-ray of the left hand where he has a skin avulsion, but he declines, stating he is not having any pain. I reviewed his prior records and he does not have a current tetanus immunization. He was told by RN that he refused tetanus immunization. I reviewed the radiology report of the CT of the brain which shows generalized brain atrophy and small ischemic degenerative changes but no evidence of an acute intracranial hemorrhage. CT of the cervical spine shows degenerative changes but no acute fracture. CT of the facial bones shows no acute fracture but there is a right forehead hematoma. I was also informed by the RN that the patient is having bilateral hip pain. It does not hurt when he moves his legs. I have low suspicion for fracture, but x-rays will be obtained and interpreted by myself independently. He requested something stronger than Tylenol for pain so he was given 1 [place] tablet as he usually does not take pain medications. Patient will be ambulated after negative x-ray of the hips. I did interpret the x-rays of the bilateral hips and pelvis independently and see no evidence of acute fracture. There are degenerative joint changes. I reviewed the radiology report which confirms my independent interpretation. Patient was ambulated in the emergency department with his cane and did well. He is motivated for discharge. At this point in time, I feel he can be discharged to follow-up with his primary care provider. He was given close head injury instructions. He can take Tylenol as needed for analgesia. Return instructions reviewed. Disposition is discharged home in stable condition. History & Record Review Discussion w/independent historian: Patient Additional record(s) reviewed:: Prior ED visit Radiography X-Ray: Right Hip, Left Hip, Read by ED Physician, Read by Radiologist, No Fracture and DJD Diagnostic Testing: Clinical Impression(s) from Imaging Studies Brain CT 11/10/24 19:03 IMPRESSION: 1. Generalized brain atrophy. 2. Small vessel ischemic/degenerative changes. 3. No acute intracranial hemorrhage, midline shift or mass effect. If symptoms persist, further evaluation with MRI is recommended. Reading Location: [facility] Cervical Spine CT 11/10/24 19:03 IMPRESSION: 1. No acute fracture. 2. Degenerative changes of the cervical spine as described. Reading Location: [facility] Facial/Sinus 11/10/24 19:03 IMPRESSION: 1. No acute fracture. 2. Small right frontal scalp hematoma. Reading Location: [facility] Hip/Pelvis X-Ray 11/10/24 20:36 IMPRESSION: 1. Mild degenerative changes of the hip joints, bilaterally. 2. Degenerative changes as above. Reading Location: [facility] Discharge Plan Triage Chief Complaint: Head Injury ED Provider: Donald Francis Dx/Rx/DC Orders Clinical Impression: Fall, Abrasion of face and extremities, Bilateral hip pain, Abrasion of nose, Traumatic hematoma of forehead, Closed head injury, Avulsion of skin of finger Instructions: ED Abrasion, ED Facial Contusion, ED Head Injury (Adult), ED Hematoma Prescriptions: No Action ascorbate calcium (vitamin C) 500 mg tablet 500 mg PO DAILY polysaccharide iron complex [Ferrex 150] 150 mg iron capsule 150 mg PO DAILY insulin degludec [Tresiba FlexTouch U-100] 100 unit/mL (3 mL) insulin pen 40 unit subcut BID ranolazine 500 mg tablet extended release 12 hr 500 mg PO BID Qty: 60 11RF famotidine 40 MG tablet 40 mg PO DAILY gabapentin 300 mg capsule 300 mg PO BID glimepiride 4 mg Tablet 4 mg PO DAILY levothyroxine 25 mcg Tablet 25 mcg PO DAILY furosemide 40 mg Tablet 40 mg PO BIDLX 30 Days Qty: 60 0RF atorvastatin 40 mg Tablet 40 mg PO QHS 30 Days Qty: 30 0RF carvedilol 6.25 mg Tablet 6.25 mg PO BID 30 Days Qty: 60 0RF amlodipine 5 mg Tablet 5 mg PO DAILY 30 Days Qty: 30 0RF doxepin 10 mg Capsule 10 mg PO QHS 30 Days Qty: 30 0RF acetaminophen 500 mg Tablet 1,000 mg PO Q6H PRN PRN (Reason: Pain Score 1-10) Qty: 0 0RF tamsulosin 0.4 mg Capsule 0.4 mg PO DAILY@1730 30 Days Qty: 30 0RF nitroglycerin 0.4 mg Tablet, Sublingual 0.4 mg sublingual Q5M PRN (Reason: Cardiac/Chest Pain) Qty: 30 2RF aspirin 81 mg Tablet,Delayed Release (Dr/Ec) 81 mg PO BREAKFAST Qty: 30 2RF Primary Care Provider: Kain Bhakta Chi Referrals: Kain Bhakta Chi, MD [Primary Care Provider] - 3-5 Days if not improving Activity Restrictions/Additional Instructions: Tylenol as directed for pain. Follow-up with your primary care provider in 3 to 5 days as needed. Return with new or worsening symptoms. Print Language: Croatian Disposition Disposition: Home, Self Care
[2024-11-10] MEDS: HYDROcodone Bitartrate/Apap 5/325 Tablet PO (20:18)
--- NOTE | 2024-11-10 20:36 | RAD_ITS ---
EXAM: XR Bilateral Hips With Pelvis When Performed, 2 or 3 Views CLINICAL INDICATION: TRAUMA TECHNIQUE: Three or four views of the bilateral hips with pelvis when performed. COMPARISON: No relevant prior studies available. FINDINGS: BONES/JOINTS: Mild degenerative changes of the hip joints, bilaterally. No acute fracture. No dislocation. SOFT TISSUES: Unremarkable. RAD/Hips B/L min 2 views w/ Pelvis IMPRESSION: 1. Mild degenerative changes of the hip joints, bilaterally. 2. Degenerative changes as above. Reading Location: [id number]
== END 2024-11-10 22:03 | disposition home or self-care (01) ==
PROVIDERS: Emergency Provider Emergency Medicine; PCP Family Medicine Geriatric Medicine; Visit Provider Emergency Medicine
DX: S00.81XA Abrasion of other part of head, initial encounter (principal); N18.4 Chronic kidney disease, stage 4 (severe); J96.11 Chronic respiratory failure with hypoxia; I13.0 Hypertensive heart and chronic kidney disease with heart failure and stage 1 through stage 4 chronic kidney disease, or unspecified chronic kidney disease; I50.30 Unspecified diastolic (congestive) heart failure; J44.9 Chronic obstructive pulmonary disease, unspecified; E11.42 Type 2 diabetes mellitus with diabetic polyneuropathy; Z79.4 Long term (current) use of insulin; E11.22 Type 2 diabetes mellitus with diabetic chronic kidney disease; S00.31XA Abrasion of nose, initial encounter; S61.207A Unspecified open wound of left little finger without damage to nail, initial encounter; S00.83XA Contusion of other part of head, initial encounter; M25.551 Pain in right hip; M25.552 Pain in left hip; W01.0XXA Fall on same level from slipping, tripping and stumbling without subsequent striking against object, initial encounter; Z99.81 Dependence on supplemental oxygen; Z28.21 Immunization not carried out because of patient refusal; K21.9 Gastro-esophageal reflux disease without esophagitis; E03.9 Hypothyroidism, unspecified; E78.5 Hyperlipidemia, unspecified; I25.10 Atherosclerotic heart disease of native coronary artery without angina pectoris; Z95.5 Presence of coronary angioplasty implant and graft; Z79.84 Long term (current) use of oral hypoglycemic drugs; Z79.82 Long term (current) use of aspirin; Z79.890 Hormone replacement therapy; Z79.899 Other long term (current) drug therapy; Z87.891 Personal history of nicotine dependence
CPT/HCPCS: 70450; 70486; 72125; 73521; 90715; 99285

== ENCOUNTER 2024-11-21 12:27 | Emergency (ER) | payer MEDICARE, SELFPAY ==
[2024-11-21] VITALS (7 sets, daily range): BP systolic 109–138; BP diastolic 58–88; PULSE 68–86; RESP 16–22; TEMP 36.2–36.9; O2SAT 92–100; BMI 37.0
[2024-11-21 13:38] LABS: Hematocrit 27.2 % (40-54); Hemoglobin 8.7 g/dL (13.0-16.5); Immature Granulocytes Count 0.030 X10^3/uL (0.0-0.0); Mean Corp Hgb Conc 32.0 g/dL (32-36); Mean Corpuscular Volume 95.8 fL (80-94); Mean Platelet Vol. 9.6 fl (6.2-12.0); NRBC Flagged by Analyzer 0 % (0-5); Platelet Count 182 K/mm3 (150-450); RBC Distribution Width CV 13.3 % (11.6-14.6); RBC Distribution Width SD 46.6 fl (35.1-43.9); Red Blood Count 2.84 M/mm3 (4.6-6.2); White Blood Count 6.7 K/mm3 (4.4-11.0)
[2024-11-21 13:39] LABS: Base Excess 12 mmol/L (-2 to +2); FI02 2.0; PO2 98 mmHG (75-100); SITE L Brach; SO2 97 % (95-99)
[2024-11-21] MEDS: 0.9% Normal Saline (1000mL) 1,000 ML 999 ML IV (13:41)
[2024-11-21 13:53] LABS: Prothrombin Time (Protime)PT. 14.4 SECONDS (11.7-14.9)
[2024-11-21 13:54] LABS: Partial Thromboplast Time 33.9 Seconds (24.1-36.2)
[2024-11-21 15:19] LABS: Magnesium 2.2 mg/dL (1.5-2.2)
[2024-11-21 15:43] LABS: Anion Gap 19 (5-15); BUN 46 mg/dL (4-19); BUN/Creat Ratio 20.0 RATIO (10-20); Calcium,Total 8.2 mg/dL (7.6-11.0); Carbon Dioxide 19.1 mmol/L (21.0-32.0); Chloride 101 mmol/L (98-108); Estimated Creatinine Clearance 26.82 ml/min (50-250); Glucose 196 mg/dL (70-99); Potassium 4.6 mmol/L (3.3-5.1); Pro- Brain NATRIURETIC PEPTIDE 96 pg/mL (<=1800); Troponin T High Sensitivity 59 ng/L (<=22)
== END 2024-11-21 17:52 | disposition home or self-care (01) ==
PROVIDERS: Emergency Provider Emergency Medicine; PCP Family Medicine Geriatric Medicine; Visit Provider Emergency Medicine
DX: I13.0 Hypertensive heart and chronic kidney disease with heart failure and stage 1 through stage 4 chronic kidney disease, or unspecified chronic kidney disease (principal); N18.4 Chronic kidney disease, stage 4 (severe); J96.11 Chronic respiratory failure with hypoxia; I50.32 Chronic diastolic (congestive) heart failure; J44.9 Chronic obstructive pulmonary disease, unspecified; E11.22 Type 2 diabetes mellitus with diabetic chronic kidney disease; E11.42 Type 2 diabetes mellitus with diabetic polyneuropathy; Z79.4 Long term (current) use of insulin; D64.9 Anemia, unspecified; E03.9 Hypothyroidism, unspecified; E78.5 Hyperlipidemia, unspecified; I25.10 Atherosclerotic heart disease of native coronary artery without angina pectoris; K21.9 Gastro-esophageal reflux disease without esophagitis; Z95.5 Presence of coronary angioplasty implant and graft; Z99.81 Dependence on supplemental oxygen; Z79.82 Long term (current) use of aspirin; Z79.890 Hormone replacement therapy; Z79.84 Long term (current) use of oral hypoglycemic drugs; Z79.899 Other long term (current) drug therapy; Z87.891 Personal history of nicotine dependence
CPT/HCPCS: 36600; 71046; 80048; 82274; 82803; 83735; 83880; 84484; 85025; 85610; 85730; 93005; 96360; 99284; A4216

== ENCOUNTER → 2024-11-21 | Outpatient (CLI) | payer OTHER, MEDICARE, SELFPAY ==
[2024-11-21 10:05] LABS: Hematocrit 30.0 % (40-54); Hemoglobin 9.8 g/dL (13.0-16.5); Immature Granulocytes Count 0.020 X10^3/uL (0.0-0.0); Mean Corp Hgb Conc 32.7 g/dL (32-36); Mean Corpuscular Volume 95.2 fL (80-94); Mean Platelet Vol. 9.8 fl (6.2-12.0); NRBC Flagged by Analyzer 0 % (0-5); Platelet Count 182 K/mm3 (150-450); RBC Distribution Width CV 13.4 % (11.6-14.6); RBC Distribution Width SD 46.9 fl (35.1-43.9); Red Blood Count 3.15 M/mm3 (4.6-6.2); White Blood Count 5.4 K/mm3 (4.4-11.0)
[2024-11-21 11:12] LABS: Vitamin D,25 Hydroxy 40.2 ng/mL (30-100)
[2024-11-21 11:16] LABS: AST(SGOT) 24 U/L (<=37); Alanine Aminotransfer ALT/SGPT 14 U/L (<=46); Alkaline Phosphatase 85 U/L (40-129); BUN 4 mg/dL (4-19); BUN/Creat Ratio 1.8 RATIO (10-20); Calcium,Total 8.2 mg/dL (7.6-11.0); Chloride 101 mmol/L (98-108); Globulin 6.8 g/dL (2.2-4.2); Glucose 204 mg/dL (70-99); Potassium 4.5 mmol/L (3.3-5.1)
[2024-11-21 11:24] LABS: Albumin, Serum 3.8 g/dL (3.4-4.8); Anion Gap 29 (5-15)
[2024-11-21 11:26] LABS: Carbon Dioxide 8.1 mmol/L (21.0-32.0)
== END | disposition home or self-care (01) ==
LOC: POLAB3 09:48
PROVIDERS: PCP Family Medicine Geriatric Medicine; Visit Provider Family Medicine Geriatric Medicine
DX: E11.65 Type 2 diabetes mellitus with hyperglycemia (principal); I10 Essential (primary) hypertension; E55.9 Vitamin D deficiency, unspecified
CPT/HCPCS: 36415; 80053; 82306; 84443; 85025

== ENCOUNTER 2024-12-02 10:15 | Inpatient (IN) | payer OTHER, SELFPAY ==
[2024-12-02] VITALS (12 sets, daily range): BP systolic 112–168; BP diastolic 50–96; PULSE 68–82; RESP 16–22; TEMP 36.3–37; O2SAT 94–100; BMI 37.0
[2024-12-02 10:47] LABS: Hematocrit 29.5 % (40-54); Hemoglobin 9.8 g/dL (13.0-16.5); Mean Corp Hgb Conc 33.2 g/dL (32-36); Mean Corpuscular Volume 94.2 fL (80-94); Mean Platelet Vol. 10.2 fl (6.2-12.0); Platelet Count 173 K/mm3 (150-450); RBC Distribution Width CV 13.8 % (11.6-14.6); RBC Distribution Width SD 46.7 fl (35.1-43.9); Red Blood Count 3.13 M/mm3 (4.6-6.2); White Blood Count 9.6 K/mm3 (4.4-11.0)
[2024-12-02 10:50] LABS: Scan Indicated on CBC? Y/N NO
[2024-12-02 11:11] LABS: Mucous, Urine 0 SEEN /hpf (<or=2+); Red Blood Cells-Urine 0 SEEN /hpf (0-5); Squamous Epithelial Cells - UA 0 SEEN /hpf (0-5)
[2024-12-02 11:13] LABS: Color, Urine Yellow (Yellow); Glucose, Dipstick Normal (Normal); Ketone-Dipstick Negative (Negative); Leukocyte Esterase-Dipstick Negative /ul (Negative); Nitrite-Dipstick Negative (Negative); Occult Blood-Urine Negative /ul (Negative); Protein-Dipstick Negative (Negative); Specific Gravity, Urine 1.010 (1.002-1.030); Urine Bilirubin Dipstick Negative (Negative)
--- NOTE | 2024-12-02 11:14 | EDS_ITS ---
HPI History of Present Illness Chief Complaint: Confusion Informant: patient Narrative Narrative: Patient is an 84-year-old male with history of CKD stage IV, COPD, chronic respiratory failure on 2 to 3 L of oxygen at baseline, hyperlipidemia, diabetes mellitus, hypertension and hypothyroidism presenting for episode of confusion. Patient was home alone. Reportedly had an episode of confusions where he did not recognize his neighbors. He had a hard time parent how to eat yogurt. EMS was called. His blood sugar was 74 and was given glucose per EMS and blood sugar went up to 89. His mentation and confusion improved. He states he is otherwise been in his normal state of health. Recalls being confused but nothing else. Denies associated chest pain, shortness of breath or vision changes. Does remember feeling dizzy this morning. Currently feels back to his normal state of health. Denies any recent urinary symptoms. States he has been constipated for the past 2 to 3 days. States over the past year he has had some increased constipation. Denies associate abdominal pain. Did have a fall 1 week ago (was seen in the ER on 11/10/2024 for mechanical fall where he had a CT of the brain, face and cervical spine which were negative for any acute process). 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 Vitamin D deficiency GERD (gastroesophageal reflux disease) Heart failure with preserved ejection fraction Diabetic polyneuropathy Hypothyroidism CKD (chronic kidney disease), stage IV Atherosclerotic cardiovascular disease COPD (chronic obstructive pulmonary disease) Chronic hypoxemic respiratory failure Pneumonia due to COVID-19 virus Hypertension PVCs (premature ventricular contractions) Anemia Obesity (BMI 30.0-34.9) Diabetes mellitus, type II HLD (hyperlipidemia) Home Medications ?Medication ?Instructions ?Recorded ?Last Taken ?Type famotidine 40 mg tablet 40 mg PO DAILY GERD 07/13/18 Unknown History glimepiride 4 mg tablet 4 mg PO DAILY DIABETES 06/23 Unknown History levothyroxine 25 mcg tablet 25 mcg PO DAILY THYROID 03/23/24 History ascorbate calcium (vitamin C) 500 500 mg PO DAILY SUPP LEMENT 03/09/24 03/23/24 History mg tablet gabapentin 300 mg capsule 300 mg PO BID NEUROPATHY 11/21/24 History polysaccharide iron complex 150 mg 150 mg PO DAILY SUP PLEMENT 03/09/24 Unknown History iron capsule (Ferrex) aspirin 81 mg tablet,delayed 81 mg PO BREAKFAST heart #30 tabs 03/23/24 03/23/24 Rx release nitroglycerin 0.4 mg sublingual 0.4 mg sublingual Q5M PRN 03/23/24 03/16/24 Rx tablet Cardiac/Chest Pain #30 tabs amlodipine 5 mg tablet 5 mg PO DAILY 30 days #30 ta bs 04/07/24 Unknown Rx atorvastatin 40 mg tablet 40 mg PO QHS 30 days #30 tab s 04/07/24 11/20/24 Rx carvedilol 6.25 mg tablet 6.25 mg PO BID 30 days #60 t abs 04/07/24 11/21/24 Rx furosemide 40 mg tablet 40 mg PO BIDLX 30 days #60 t abs 04/07/24 11/21/24 Rx tamsulosin 0.4 mg capsule 0.4 mg PO DAILY@1730 30 days #30 04/07/24 11/20/24 Rx caps ranolazine 500 mg tablet,extended 500 mg PO BID #60 ta bs 09/13/24 11/21/24 Rx release,12 hr clopidogrel 75 mg tablet 75 mg PO DAILY 11/21/24 Unkn own History insulin degludec 200 unit/mL (3 40 unit subcut BID 12/09 Unknown History mL) subcutaneous pen (Tresiba FlexTouch U-200 insulin) trazodone 50 mg tablet 25 mg PO QHS 11/21/24 History
--- NOTE | 2024-12-02 11:14 | EX.ED.DYSGE1 ---
HPI History of Present Illness Chief Complaint: Confusion Informant: patient Narrative Narrative: Patient is an 84-year-old male with history of CKD stage IV, COPD, chronic respiratory failure on 2 to 3 L of oxygen at baseline, hyperlipidemia, diabetes mellitus, hypertension and hypothyroidism presenting for episode of confusion. Patient was home alone. Reportedly had an episode of confusions where he did not recognize his neighbors. He had a hard time parent how to eat yogurt. EMS was called. His blood sugar was 74 and was given glucose per EMS and blood sugar went up to 89. His mentation and confusion improved. He states he is otherwise been in his normal state of health. Recalls being confused but nothing else. Denies associated chest pain, shortness of breath or vision changes. Does remember feeling dizzy this morning. Currently feels back to his normal state of health. Denies any recent urinary symptoms. States he has been constipated for the past 2 to 3 days. States over the past year he has had some increased constipation. Denies associate abdominal pain. Did have a fall 1 week ago (was seen in the ER on 11/10/2024 for mechanical fall where he had a CT of the brain, face and cervical spine which were negative for any acute process). 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 Vitamin D deficiency GERD (gastroesophageal reflux disease) Heart failure with preserved ejection fraction Diabetic polyneuropathy Hypothyroidism CKD (chronic kidney disease), stage IV Atherosclerotic cardiovascular disease COPD (chronic obstructive pulmonary disease) Chronic hypoxemic respiratory failure Pneumonia due to COVID-19 virus Hypertension PVCs (premature ventricular contractions) Anemia Obesity (BMI 30.0-34.9) Diabetes mellitus, type II HLD (hyperlipidemia) Home Medications ?Medication ?Instructions ?Recorded ?Last Taken ?Type famotidine 40 mg tablet 40 mg PO DAILY GERD 07/13/18 Unknown History glimepiride 4 mg tablet 4 mg PO DAILY DIABETES 06/23/22 Unknown History levothyroxine 25 mcg tablet 25 mcg PO DAILY THYROID 07/09/22 03/23/24 History ascorbate calcium (vitamin C) 500 500 mg PO DAILY SUPPLEMENT 03/09/24 03/23/24 History mg tablet gabapentin 300 mg capsule 300 mg PO BID NEUROPATHY 03/09/24 11/21/24 History polysaccharide iron complex 150 mg 150 mg PO DAILY SUPPLEMENT 03/09/24 Unknown History iron capsule (Ferrex) aspirin 81 mg tablet,delayed 81 mg PO BREAKFAST heart #30 tabs 03/23/24 03/23/24 Rx release nitroglycerin 0.4 mg sublingual 0.4 mg sublingual Q5M PRN 03/23/24 03/16/24 Rx tablet Cardiac/Chest Pain #30 tabs amlodipine 5 mg tablet 5 mg PO DAILY 30 days #30 tabs 04/07/24 Unknown Rx atorvastatin 40 mg tablet 40 mg PO QHS 30 days #30 tabs 04/07/24 11/20/24 Rx carvedilol 6.25 mg tablet 6.25 mg PO BID 30 days #60 tabs 04/07/24 11/21/24 Rx furosemide 40 mg tablet 40 mg PO BIDLX 30 days #60 tabs 04/07/24 11/21/24 Rx tamsulosin 0.4 mg capsule 0.4 mg PO DAILY@1730 30 days #30 04/07/24 11/20/24 Rx caps ranolazine 500 mg tablet,extended 500 mg PO BID #60 tabs 09/13/24 11/21/24 Rx release,12 hr clopidogrel 75 mg tablet 75 mg PO DAILY 11/21/24 Unknown History insulin degludec 200 unit/mL (3 40 unit subcut BID 11/21/24 Unknown History mL) subcutaneous pen (Tresiba FlexTouch U-200 insulin) trazodone 50 mg tablet 25 mg PO QHS 11/21/24 11/20/24 History Allergy/AdvReac Type Severity Reaction Status Date / Time No Known Allergies Allergy Verified 12/02/24 10:16 Family History Brother Diabetes Mother Diabetes Sister Diabetes Father Heart disease Surgical History Stented coronary artery (03/16/24) History of appendectomy Social History household members: none Smoking Status: Former smoker alcohol intake: never substance use type: does not use ROS ROS ED Constitutional Constitutional ED: Denies chills or fever(s) Eyes Eyes: Denies change in vision ENT ENT ED: Denies rhinorrhea or sore throat Cardiovascular Cardiovascular: Denies chest pain or palpitations Respiratory/Chest Respiratory/Chest: Denies cough or dyspnea Gastrointestinal Gastrointestinal: Reports constipation; Denies abdominal pain, nausea or vomiting Genitourinary Genitourinary ED: Denies dysuria or urinary frequency Musculoskeletal Musculoskeletal: Denies arthralgias or myalgias Integumentary Reports Abrasions and other Details: On knees associated with fall couple weeks ago Neurologic Neurologic: Reports other Details: Episode of confusion ; Denies headache(s), paresthesias or weakness Hematologic/Lymphatic Hematologic/Lymphatic: Denies easy bleeding or easy bruising EXAM Physical Exam Const Vital Signs: 12/02/24 10:16 12/02/24 10:19 12/02/24 11:28 Temperature 98.0 F 98.0 F Temperature Source Oral Oral Pulse Rate 73 68 69 Respiratory Rate 18 18 18 Blood Pressure 136/55 H 136/55 H 159/96 H Blood Pressure Mean 82 82 117 Pulse Ox 100 100 98 Oxygen Delivery Method Nasal Cannula Room Air Oxygen Flow Rate (L/min) 3 12/02/24 11:29 12/02/24 12:00 12/02/24 13:00 Temperature 98.0 F 98 F 98.1 F Temperature Source Oral Oral Oral Pulse Rate 69 70 71 Respiratory Rate 18 18 18 Blood Pressure 159/96 H 160/87 H 162/82 H Blood Pressure Mean 117 111 108 Pulse Ox 98 97 100 Oxygen Delivery Method Nasal Cannula Nasal Cannula Nasal Cannula Oxygen Flow Rate (L/min) 3 12/02/24 13:09 Temperature 98.1 F Temperature Source Pulse Rate 71 Respiratory Rate 18 Blood Pressure 162/82 H Blood Pressure Mean 108 Pulse Ox 100 Oxygen Delivery Method Oxygen Flow Rate (L/min) General Appearance ED: pallor HEENT Reports moist mucous membranes Eyes PERRL and EOMs intact bilaterally Neck supple and no JVD Chest Wall inspection of chest normal and palpation of chest normal Resp normal respiratory effort and clear to auscultation bilaterally Cardio regular rate, regular rhythm and no murmurs GI non-tender and non-distended Auscultation: hypoactive bowel sounds Palpation: soft; Negative for tender or guarding Extremity Extremity Narrative: No obvious deformity. Pretibial pitting edema present?trace Neuro oriented x3, CN's II-XII intact bilaterally and no sensory deficits noted Neuro Narrative: Patient recalls being confused and is acting completely appropriate at this time Sensorium / Orientation: alert Sensory Exam: No sensory level loss detected Motor Exam: strength 5/5 throughout; Negative for general weakness Psych mental status grossly normal Skin no wounds Skin Narrative: Healing abrasions to the bilateral knees, no acute abrasions. General Skin Exam: pallor; Negative for jaundice MDM MDM MDM Narrative Medical decision making narrative: Patient valuated for episode of confusion this morning that improved with receiving oral glucose. Differential includes transient hypoglycemia, infection, symptomatic anemia, subdural hemorrhage with delayed bleed (given fall couple weeks ago), pneumonia or other underlying infectious etiology, KALYN, and arrhythmia. Workup shows blood glucose of 74 (repeated 2 hours later and is 78). He is ambulated and generally weak. Lab work otherwise largely stable. His hemoglobin is low at 9.8 which appears to be at his baseline and actually improved from 11 days ago. CMP shows chronic kidney disease but otherwise normal/at his baseline. EKG does not show any ischemic changes in his arm and chest pain or any cardiac symptoms. Not think he needs troponins. Urinalysis is normal not consistent with infection. Chart review shows that patient's previously been in the hospital his blood sugar is usually above 150 to the low 200s. I suspect that blood sugar in the 70s is actually relative hypoglycemia for him. He attempted ambulation in the ER was quite weak per nursing staff. Spoke with patient and his daughter on the phone who is concerned about his ability to live at home alone and thinks that he needs assisted living. Patient is amenable to admission at this time. His daughter also states he does not check his blood sugar at home but continues to give himself his insulin. Case discussed with hospitalist, Dr. Kapoor for admission. Patient remained hemodynamically stable in emergency room. He started on D5 drip for concern of further hypoglycemia/relative hypoglycemia. Abdominal series does show constipation. No other acute process. Chest x-ray reviewed is normal. Imaging reviewed by myself as well as radiology. Lab Data Attestation: I reviewed the patient's lab results. Labs: Laboratory Results - last 24 hr 12/02/24 12/02/24 12/02/24 10:21 10:36 11:06 WBC 9.6 RBC 3.13 L Hgb 9.8 L Hct 29.5 L MCV 94.2 H MCH 31.3 MCHC 33.2 RDW Std Deviation 46.7 H RDW Coeff of Elmer 13.8 Plt Count 173 MPV 10.2 Sodium 140 Potassium 4.3 Chloride 102 Carbon Dioxide 25.5 Anion Gap 12 BUN 33 H Creatinine 2.18 H Estim Creat Clear Calc 28.53 L Est GFR (MDRD) Non-Af 29 L BUN/Creatinine Ratio 15.3 Glucose 77 Calcium 8.7 Urine Color Yellow Urine Clarity Clear Urine pH 7.0 Ur Specific Wadley 1.010 Urine Protein Negative Urine Glucose (UA) Normal Urine Ketones Negative Urine Occult Blood Negative Urine Nitrite Negative Urine Bilirubin Negative Urine Urobilinogen Normal Ur Leukocyte Esterase Negative Urine RBC 0 SEEN Urine WBC 0 SEEN Ur Squamous Epith Cells 0 SEEN Urine Bacteria 0 SEEN Urine Mucus 0 SEEN POC Glucose 74 12/02/24 12:44 WBC RBC Hgb Hct MCV MCH MCHC RDW Std Deviation RDW Coeff of Elmer Plt Count MPV Sodium Potassium Chloride Carbon Dioxide Anion Gap BUN Creatinine Estim Creat Clear Calc Est GFR (MDRD) Non-Af BUN/Creatinine Ratio Glucose Calcium Urine Color Urine Clarity Urine pH Ur Specific Wadley Urine Protein Urine Glucose (UA) Urine Ketones Urine Occult Blood Urine Nitrite Urine Bilirubin Urine Urobilinogen Ur Leukocyte Esterase Urine RBC Urine WBC Ur Squamous Epith Cells Urine Bacteria Urine Mucus POC Glucose 78 Radiography Diagnostic Testing: Clinical Impression(s) from Imaging Studies Brain CT 12/02/24 11:22 IMPRESSION: 1. Generalized brain atrophy. 2. Small vessel ischemic/degenerative changes. 3. No acute intracranial hemorrhage, midline shift or mass effect. If symptoms persist, further evaluation with MRI is recommended. Reading [facility]dom[facility] 12/02/24 11:30 IMPRESSION: No acute cardiopulmonary process identified radiographically. The patient appears to be mildly constipated. There is a mild ileus without evidence of bowel obstruction. Reading Location: [id number] Rhythm Strip Rhythm Strip: Sinus Rhythm Rate: 69 Ectopy: None EKG Initial EKG: Attestation: I personally reviewed and interpreted this EKG as follows: Interpretation: Sinus Rhythm Comments: Normal sinus rhythm with first-degree AV block at a rate of 69 bpm Parable 250 Voltage criteria for LVH Left axis deviation Normal intervals Normal ST segments Prior EKG tracings: available for review Prior: Unchanged Management Discussion w/another healthcare provider: Hospitalist Discharge Plan Triage Chief Complaint: Confusion ED Provider: Tsering Emanuel Dx/Rx/DC Orders Clinical Impression: Episode of confusion, Hypoglycemia, Constipation, Insulin dependent diabetes mellitus Prescriptions: No Action ascorbate calcium (vitamin C) 500 mg tablet 500 mg PO DAILY polysaccharide iron complex [Ferrex 150] 150 mg iron capsule 150 mg PO DAILY ranolazine 500 mg tablet extended release 12 hr 500 mg PO BID Qty: 60 11RF famotidine 40 MG tablet 40 mg PO DAILY gabapentin 300 mg capsule 300 mg PO BID glimepiride 4 mg Tablet 4 mg PO DAILY levothyroxine 25 mcg Tablet 25 mcg PO DAILY furosemide 40 mg Tablet 40 mg PO BIDLX 30 Days Qty: 60 0RF atorvastatin 40 mg Tablet 40 mg PO QHS 30 Days Qty: 30 0RF carvedilol 6.25 mg Tablet 6.25 mg PO BID 30 Days Qty: 60 0RF amlodipine 5 mg Tablet 5 mg PO DAILY 30 Days Qty: 30 0RF tamsulosin 0.4 mg Capsule 0.4 mg PO DAILY@1730 30 Days Qty: 30 0RF nitroglycerin 0.4 mg Tablet, Sublingual 0.4 mg sublingual Q5M PRN (Reason: Cardiac/Chest Pain) Qty: 30 2RF aspirin 81 mg Tablet,Delayed Release (Dr/Ec) 81 mg PO BREAKFAST Qty: 30 2RF insulin degludec [Tresiba FlexTouch U-200] 200 unit/mL (3 mL) insulin pen 40 unit subcut BID clopidogrel 75 mg tablet 75 mg PO DAILY trazodone 50 mg tablet 25 mg PO QHS Primary Care Provider: Kain Bhakta Chi Referrals: Kain Bhakta Chi, MD [Primary Care Provider] - Print Language: Khmer Disposition Disposition: Acute Care Hospital [facility]
[2024-12-02 11:19] LABS: Anion Gap 12 (5-15); BUN 33 mg/dL (4-19); BUN/Creat Ratio 15.3 RATIO (10-20); Calcium,Total 8.7 mg/dL (7.6-11.0); Carbon Dioxide 25.5 mmol/L (21.0-32.0); Chloride 102 mmol/L (98-108); Estimated Creatinine Clearance 28.53 ml/min (50-250); Glucose 77 mg/dL (70-99); Potassium 4.3 mmol/L (3.3-5.1)
--- NOTE | 2024-12-02 11:22 | CT_ITS ---
EXAM: CT Head Without Intravenous Contrast CLINICAL INDICATION: CONFUSION TECHNIQUE: Axial computed tomography images of the head/brain without intravenous contrast. This CT exam was performed using one or more of the following dose reduction techniques: automated exposure control, adjustment of the mA and/or kV according to patient size, and/or use of iterative reconstruction technique. COMPARISON: No relevant prior studies available. FINDINGS: BRAIN AND EXTRA-AXIAL SPACES: The cerebral and cerebellar sulci are prominent consistent with brain atrophy. Areas of decreased attenuation in the deep cerebral white matter are consistent with small vessel ischemic/degenerative changes. No acute intracranial hemorrhage, midline shift or mass effect. If symptoms persist, further evaluation with MRI is recommended. BONES/JOINTS: Unremarkable. No acute fracture. SOFT TISSUES: Unremarkable. SINUSES: Unremarkable as visualized. No acute sinusitis. MASTOID AIR CELLS: Unremarkable as visualized. No mastoid effusion. CT/Brain/Head without Contrast IMPRESSION: 1. Generalized brain atrophy. 2. Small vessel ischemic/degenerative changes. 3. No acute intracranial hemorrhage, midline shift or mass effect. If symptoms persist, further evaluation with MRI is recommended. Reading [facility]
--- NOTE | 2024-12-02 11:30 | RAD_ITS ---
PROCEDURE: ACUTE ABDOMEN INC CHEST 12/02/2024 REASON FOR EXAM: CONSTIPATION TECHNIQUE: ACUTE ABDOMEN INC CHEST COMPARISON: Chest x-ray dated 11/21/2024 and 03/28/2024 FINDINGS: Hardware: Cardiac leads overlie the chest. Heart: Stable mild cardiomegaly. Mediastinum: Arteriosclerotic vascular disease of the aorta is noted. Pulmonary vasculature is unremarkable. Trachea is midline. Lungs: Stable increased markings are identified in the lung bases compatible with bibasilar scarring. Bowel gas: A moderate to large amount of stool and gas is present throughout a mildly distended colon. The ascending colon measures 7. 1 cm. There are a few gas-filled loops of small bowel seen. No free air is noted. Psoas muscles and renal outlines are partially obscured by overlying bowel gas and fecal material within the colon. No gross organomegaly is seen. No abnormal calcific densities are seen in the abdomen or pelvis to suggest renal or ureteral stones. Free air: None Calcifications: Phleboliths are seen in the pelvis. Bones: Degenerative changes of the thoracic spine, lumbar spine, and both shoulders are noted. RAD/Acute Abdomen Inc Chest IMPRESSION: No acute cardiopulmonary process identified radiographically. The patient appears to be mildly constipated. There is a mild ileus without ev idence of bowel obstruction. Reading Location: [id number]
--- NOTE | 2024-12-02 13:01 | PCA ---
THIS SALESPERSON JEWELRY CALLED THE [place] [facility] TO ASK IF THEY HAVE ANY AVAILABILITY TO ADMIT PT. THERE WAS NO ANSWER, I LEFT A VOICEMAIL AT 1300
--- NOTE | 2024-12-02 13:17 | PCM.HP.STD ---
HPI - General General Date of Admission: 12/02/24 Date of Service: 12/02/24 Chief Complaint: Confusion, transient, low BS. HPI Narrative The patient is an 84 y/o M w/ PMHx: CAD s/p PCI, Former tobacco use, BPH with obstructive pathology, CKD stage IV, Chronic macrocytic anemia/iron deficiency anemia, GERD, HFpEF, HTN, HLD, Hypothyroidism, COPD with Chronic Hypoxic Respiratory Failure (2-3L NC), Diabetes mellitus type II with chronic neuropathy, Obesity who presents to [facility] ED on 12/02/2024 with history of an episode of confusion reportedly not recognizing his neighbors and unable to perform normal routine activities noted to be home alone and unclear exact onset time prompting EMS call with noted blood sugar 74 with improvement to 89 with mentation and confusion improving with patient reporting were calling being mildly confused but no other complaints aside from mild dizziness in the morning but this is completely resolved in addition to mild constipation over the last 2 to 3 days with no abdominal pain associated with recent evaluation in the ED 11/10/2024 secondary mechanical fall with unremarkable evaluation as time but given episode prompted ED evaluation. Workup in the ED included T98, heart rate 73, BP 136/55, respiratory rate 18, under percent on 3 L nasal cannula with most recent repeat evaluation T98, heart rate 70, BP 160/87, respiratory rate 18, 97% on 3 L nasal cannula, CBC with WC 9.6, Hgb 9.8, MCV 94.2, platelet 173 without differential, BMP with BUN/creatinine 33/2.18, GFR 29, urinalysis unremarkable, CT of the brain with generalized brain atrophy with small vessel ischemic/degenerative changes with no acute intracranial findings, acute abdominal series with a moderate to large amount of stool and gas present throughout the mildly distended colon otherwise no acute findings, EKG with sinus rhythm with first-degree AV block with no acute evidence of ischemia. In the ED patiet attempted ambulation with notable debility, unsafe attempts. Family requesting consideration of assisted living. Per family patient does not check his BS at home. In the ED given persistent hypoglycemia, patient started on judicious IV dextrose supplementation. [facility] Medical History Coronary artery disease Right carotid bruit Coronary artery disease with refractory angina pectoris Vitamin D deficiency GERD (gastroesophageal reflux disease) Heart failure with preserved ejection fraction Diabetic polyneuropathy Hypothyroidism CKD (chronic kidney disease), stage IV Atherosclerotic cardiovascular disease COPD (chronic obstructive pulmonary disease) Chronic hypoxemic respiratory failure Pneumonia due to COVID-19 virus Hypertension PVCs (premature ventricular contractions) Anemia Obesity (BMI 30.0-34.9) Diabetes mellitus, type II HLD (hyperlipidemia) Home Medications ?Medication ?Instructions ?Recorded ?Last Taken ?Type famotidine 40 mg tablet 40 mg PO DAILY GERD 07/13/18 Unknown History glimepiride 4 mg tablet 4 mg PO DAILY DIABETES 06/23/22 Unknown History levothyroxine 25 mcg tablet 25 mcg PO DAILY THYROID 07/09/22 03/23/24 History ascorbate calcium (vitamin C) 500 500 mg PO DAILY SUPPLEMENT 03/09/24 03/23/24 History mg tablet gabapentin 300 mg capsule 300 mg PO BID NEUROPATHY 03/09/24 11/21/24 History polysaccharide iron complex 150 mg 150 mg PO DAILY SUPPLEMENT 03/09/24 Unknown History iron capsule (Ferrex) aspirin 81 mg tablet,delayed 81 mg PO BREAKFAST heart #30 tabs 03/23/24 03/23/24 Rx release nitroglycerin 0.4 mg sublingual 0.4 mg sublingual Q5M PRN 03/23/24 03/16/24 Rx tablet Cardiac/Chest Pain #30 tabs amlodipine 5 mg tablet 5 mg PO DAILY 30 days #30 tabs 04/07/24 Unknown Rx atorvastatin 40 mg tablet 40 mg PO QHS 30 days #30 tabs 04/07/24 11/20/24 Rx carvedilol 6.25 mg tablet 6.25 mg PO BID 30 days #60 tabs 04/07/24 11/21/24 Rx furosemide 40 mg tablet 40 mg PO BIDLX 30 days #60 tabs 04/07/24 11/21/24 Rx tamsulosin 0.4 mg capsule 0.4 mg PO DAILY@1730 30 days #30 04/07/24 11/20/24 Rx caps ranolazine 500 mg tablet,extended 500 mg PO BID #60 tabs 09/13/24 11/21/24 Rx release,12 hr clopidogrel 75 mg tablet 75 mg PO DAILY 11/21/24 Unknown History insulin degludec 200 unit/mL (3 40 unit subcut BID 11/21/24 Unknown History mL) subcutaneous pen (Tresiba FlexTouch U-200 insulin) trazodone 50 mg tablet 25 mg PO QHS 11/21/24 11/20/24 History Allergy/AdvReac Type Severity Reaction Status Date / Time No Known Allergies Allergy Verified 12/02/24 10:16 Family History Brother Diabetes Mother Diabetes Sister Diabetes Father Heart disease Surgical History Stented coronary artery (03/16/24) History of appendectomy Social History household members: none Smoking Status: Former smoker alcohol intake: never substance use type: does not use ROS ROS Narrative Admission Review of Systems: CONSTITUTIONAL: No weight loss, fever, chills, + weakness or fatigue. HEENT: + Lightheadedness, transient. Eyes: No visual loss, blurred vision, double vision or yellow sclerae. Ears, Nose, Throat: No hearing loss, sneezing, congestion, runny nose or sore throat. SKIN: No rash or itching, lesions, wounds. CARDIOVASCULAR: No chest pain, chest pressure or chest discomfort, palpitations, edema, orthopnea, syncopal events. RESPIRATORY: No shortness of breath, cough or sputum, wheezing, hemoptysis. GASTROINTESTINAL: No anorexia, nausea, vomiting or diarrhea, abdominal pain, melena, BRBPR. GENITOURINARY: No dysuria, frequency, urgency or retention. NEUROLOGICAL: + Chronic neuropathy, frequent falls, episode of dizziness. No headache, syncope, paralysis, ataxia, focal weakness, change in bowel or bladder control, seizure. MUSCULOSKELETAL: + muscle, back pain, joint pain or stiffness. HEMATOLOGIC: + Chronic anemia, history of easy bleeding/bruising. LYMPHATICS: No enlarged nodes. No history of splenectomy. PSYCHIATRIC: No history of depression or anxiety. + Chronic insomnia. ENDOCRINOLOGIC: No reports of sweating, cold or heat intolerance. No polyuria or polydipsia. ALLERGIES: No history of asthma, hives, eczema or rhinitis. Vital Signs Vital Signs Vital Signs: 12/02/24 10:16 12/02/24 10:19 12/02/24 11:28 Temperature 98.0 F 98.0 F Temperature Source Oral Oral Pulse Rate 73 68 69 Respiratory Rate 18 18 18 Blood Pressure 136/55 H 136/55 H 159/96 H Blood Pressure Mean 82 82 117 Pulse Ox 100 100 98 Oxygen Delivery Method Nasal Cannula Room Air Oxygen Flow Rate (L/min) 3 12/02/24 11:29 12/02/24 12:00 12/02/24 13:00 Temperature 98.0 F 98 F 98.1 F Temperature Source Oral Oral Oral Pulse Rate 69 70 71 Respiratory Rate 18 18 18 Blood Pressure 159/96 H 160/87 H 162/82 H Blood Pressure Mean 117 111 108 Pulse Ox 98 97 100 Oxygen Delivery Method Nasal Cannula Nasal Cannula Nasal Cannula Oxygen Flow Rate (L/min) 3 12/02/24 13:09 Temperature 98.1 F Temperature Source Pulse Rate 71 Respiratory Rate 18 Blood Pressure 162/82 H Blood Pressure Mean 108 Pulse Ox 100 Oxygen Delivery Method Oxygen Flow Rate (L/min) Weight Weight: 229 lb 11.2 oz Body Mass Index (BMI) 37.0 Physical Exam Narrative Physical Examination: General: Awake, alert, oriented to self, place and recent meds, notes feeling improved, states he was mildly dizzy this morning and did feel confused, feels back to his baseline, remains cooperative, seated upright in ED bed, eating, no acute distress, dextrose IV fluids being initiated. Skin: Normal color, normal turgor, no icterus, no cyanosis except for bilateral lower extremity venous stasis skin changes, occasional stage ecchymoses and abrasions. HEENT: AT/NC, EOMI, PERRLA, MMM, unable to discern any carotid bruits, difficult to discern JVD given thickened neck. Lungs: Diminished, greater bases, poor effort, no rales, ronchi or wheezing. Heart: Regular rate and rhythm; no gallop, rub audible. Abdomen: Soft, obese, NTTP, mildly hyperactive BS, no appreciated distention or HSM however habitus makes evaluation difficult. Extremities: No cyanosis, no clubbing, pedal to mid castrejon 1-2+ pitting edema which he notes is chronic, see skin. Neurological: Patient awake, alert, oriented as noted, cognitive function suspect return to baseline intact; pupils equally reactive to light and accommodation, cranial nerves grossly normal, moving all 4 extremities, no focal deficits, strength moderately globally decreased, improving. Psychiatric: Affect appears fatigued otherwise normal, no acute evidence of depressive or anxiety feelings. Results Lab / Micro Data 12/02/24 10:36 12/02/24 10:36 Labs: Laboratory Results - last 24 hr 12/02/24 10:21: POC Glucose 74 12/02/24 10:36: WBC 9.6, RBC 3.13 L, Hgb 9.8 L, Hct 29.5 L, MCV 94.2 H, MCH 31.3, MCHC 33.2, RDW Std Deviation 46.7 H, RDW Coeff of Elmer 13.8, Plt Count 173, MPV 10.2, Sodium 140, Potassium 4.3, Chloride 102, Carbon Dioxide 25.5, Anion Gap 12, BUN 33 H, Creatinine 2.18 H, Estim Creat Clear Calc 28.53 L, Est GFR (MDRD) Non-Af 29 L, BUN/Creatinine Ratio 15.3, Glucose 77, Calcium 8.7 12/02/24 11:06: Urine Color Yellow, Urine Clarity Clear, Urine pH 7.0, Ur Specific [place] 1.010, Urine Protein Negative, Urine Glucose (UA) Normal, Urine Ketones Negative, Urine Occult Blood Negative, Urine Nitrite Negative, Urine Bilirubin Negative, Urine Urobilinogen Normal, Ur Leukocyte Esterase Negative, Urine RBC 0 SEEN, Urine WBC 0 SEEN, Ur Squamous Epith Cells 0 SEEN, Urine Bacteria 0 SEEN, Urine Mucus 0 SEEN 12/02/24 12:44: POC Glucose 78 Rhythm Strip Rhythm Strip: Sinus Rhythm Rate: 69 Ectopy: None Imaging Radiology Impression Brain CT 12/02/24 11:22 IMPRESSION: 1. Generalized brain atrophy. 2. Small vessel ischemic/degenerative changes. 3. No acute intracranial hemorrhage, midline shift or mass effect. If symptoms persist, further evaluation with MRI is recommended. Reading [facility] Acute Abdomen Series 12/02/24 11:30 IMPRESSION: No acute cardiopulmonary process identified radiographically. The patient appears to be mildly constipated. There is a mild ileus without evidence of bowel obstruction. Reading Location: [facility] Assessment & Plan Assessment/Plan (1) Encephalopathy acute: PLAN: Plan The patient is an 84 y/o M w/ PMHx: CAD s/p PCI, Former tobacco use, BPH with obstructive pathology, CKD stage IV, Chronic macrocytic anemia/iron deficiency anemia, GERD, HFpEF, HTN, HLD, Hypothyroidism, COPD with Chronic Hypoxic Respiratory Failure (2-3L NC), Diabetes mellitus type II with chronic neuropathy, Obesity who presents to [facility] ED on 12/02/2024 with history of an episode of confusion reportedly not recognizing his neighbors and unable to perform normal routine activities noted to be home alone and unclear exact onset time prompting EMS call with noted blood sugar 74 with improvement to 89 with mentation and confusion improving with patient reporting were calling being mildly confused but no other complaints aside from mild dizziness in the morning but this is completely resolved in addition to mild constipation over the last 2 to 3 days with no abdominal pain associated with recent evaluation in the ED 11/10/2024 secondary mechanical fall with unremarkable evaluation as time but given episode prompted ED evaluation. #1. Acute Metabolic Encephalopathy secondary to Acute Hypoglycemia with underlying Diabetes mellitus type II w/ chronic diabetic chronic neuropathy, suspect noncompliance potentially recurrent medication errors with adult failure to thrive, debility: Will admit to PCU, will continue IV dextrose supplementation, will hold oral home regimen, holding also scheduled long-acting insulin, pending hemoglobin A1c requested, will allow broadened regular diet, maintain on serial q 1 hour accu checks until assure BS improving, nutrition consulted for education, procalcitonin requested, PT/OT/CM consulted for discharge planning. Family is very concerned that patient is making medication errors and having potentially recurrent episodes of hypoglycemia with consideration for potential placement need. #2. Acute on chronic constipation: Plain film of the abdomen with significant evidence of a moderate to large amount of stool and gas present throughout the mildly distended colon, will initiate bowel regimen, monitor I's and O's. #3. CAD: Status post PCI, will continue aspirin/Plavix, statin, Coreg, not on KOBY/ARB likely secondary to underlying renal disease. #4. Chronic COPD with chronic hypoxic respiratory failure 2 to 3 L nasal cannula baseline: Will maintain on home oxygen supplementation, hold home inhalers in the interim maintain on ATC duonebs, PRN albuterol, HOB, IS parameters. #5. HFpEF: Will continue aspirin/Plavix, statin, Coreg, Ranexa, not on KOBY/ARB likely secondary to underlying renal disease, continue Lasix regimen, monitor weights. Judiciously hydrating with dextrose solution, monitor for overload. #6. Chronic Kidney Disease Stage IV per GFR trending: Admission BUN/Cr 33/2.18, GFR 29, baseline renal function primarily 1.9-2.3 more recently, most recently noted 11/21/2024 creatinine 2.32, repeat BMP in AM. #7. Chronic macrocytic anemia/iron deficiency anemia: Admission hemoglobin 9.8, MCV 94.2 only mildly elevated, baseline hemoglobin more recently 8-9 range, continue to trend. Continue iron supplementation. #8. Hypothyroidism: Will continue patient on levothyroxine regimen. #9. Hypertension: Continue home regimen including amlodipine, Coreg, Lasix with hold parameters as needed, PRN hydralazine. #10. Hyperlipidemia: Will continue patient home statin therapy. #11. BPH with obstructive pathology: Will continue patient home Flomax regimen, monitor for retention. #12. Former tobacco use: Encourage continued tobacco cessation. #13. GERD: Continue patient on famotidine regimen. #14. DVT prophylaxis: Heparin. #15. 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 Discussed CODE status at length including difference between FULL code, DNR-CCA and DNR-CC status. Following discussions about the differences in these status, requested Full Code status. He very specifically states however he would not want anything long-term including any long-term intubation especially if there is no quality of life. Advanced Care Planning Face to Face Time: 16 minutes. Charges/Coding Visit Charges Inpatient E&M: 42613 Init Hosp L3 Procedures Hospitalists Procedures: 27562 Advncd Care Plan 30 Min
[2024-12-02] MEDS: Dextrose 5%/0.9% NaCl 1,000 ML 125 ML IV (13:38)
[2024-12-02 14:32] LABS: Magnesium 2.3 mg/dL (1.5-2.2); Procalcitonin 0.03 ng/mL (<=0.10)
[2024-12-02] MEDS: Polyethylene Glycol 3350 17 GM PACKET PO (15:04)
[2024-12-02] MEDS: Dextrose 5%/0.9% NaCl 1,000 ML 50 ML IV (15:04)
[2024-12-02] MEDS: Senna/Docusate Sodium 1 Tablet PO (15:05)
[2024-12-02] MEDS: Heparin Injection (Vial) 5,000 UNIT/ML VIAL 5000 UNIT SC (22:15)
[2024-12-03] VITALS (7 sets, daily range): BP systolic 113–138; BP diastolic 53–71; PULSE 62–79; RESP 12–18; TEMP 36.2–36.3; O2SAT 94–100; BMI 37.0
[2024-12-03 05:35] LABS: Hematocrit 26.2 % (40-54); Hemoglobin 8.6 g/dL (13.0-16.5); Immature Granulocytes Count 0.010 X10^3/uL (0.0-0.0); Mean Corp Hgb Conc 32.8 g/dL (32-36); Mean Corpuscular Volume 94.6 fL (80-94); Mean Platelet Vol. 10.2 fl (6.2-12.0); NRBC Flagged by Analyzer 0 % (0-5); Platelet Count 158 K/mm3 (150-450); RBC Distribution Width CV 14.0 % (11.6-14.6); RBC Distribution Width SD 48.0 fl (35.1-43.9); Red Blood Count 2.77 M/mm3 (4.6-6.2); White Blood Count 5.7 K/mm3 (4.4-11.0)
[2024-12-03 06:12] LABS: AST(SGOT) 18 U/L (<=37); Alanine Aminotransfer ALT/SGPT 11 U/L (<=46); Albumin, Serum 3.3 g/dL (3.4-4.8); Alkaline Phosphatase 77 U/L (40-129); Anion Gap 9 (5-15); BUN 32 mg/dL (4-19); BUN/Creat Ratio 14.0 RATIO (10-20); Calcium,Total 8.4 mg/dL (7.6-11.0); Carbon Dioxide 28.1 mmol/L (21.0-32.0); Chloride 102 mmol/L (98-108); Estimated Creatinine Clearance 27.26 ml/min (50-250); Globulin 3.3 g/dL (2.2-4.2); Glucose 49 mg/dL (70-99); Potassium 3.8 mmol/L (3.3-5.1)
--- NOTE | 2024-12-03 07:21 | PN.HOSP_ITS ---
Reason for Visit Chief Complaint: Confusion, transient, low BS. Subjective Subjective Patient with noted per evening staff psychiatrist 12/03/24 early AM without any of his diabetic regimen recurrent hypoglycemia w/ HS in the 20s, still alert and functional, given amp with improvement following. Patient denies any acute events himself and states he is feeling well initially asking when he can be discharged however following lengthy discussion about his continued hypoglycemia even off of his medications and unsafe situation was amenable to further evaluation and treatment even potentially TCU if necessary. Did discuss case with his daughter who is agreeable with this plan of care. Insert ROS Objective Data Objective Data Vital Signs: Vital Signs Temp Pulse Resp BP Pulse Ox O2 Del Method O2 Flow Rate 97.4 F L 79 18 113/63 94 Nasal Cannula 3 12/03/24 04:10 12/03/24 07:18 12/03/24 07:18 12/03/24 04:10 12/03/24 07:18 12/03/24 07:18 12/03/24 07:18 Oxygen Flow Rate (L/min) 3 Oxygen Delivery Method Nasal Cannula Weight: 229 lb 8.019 oz Body Mass Index (BMI) 37.0 Intake & Output: Intake and Output for Last 24 Hours 12/01/24 12/02/24 12/03/24 23:59 23:59 23:59 Intake Total 755.00 / 755.00 250 / 250 Output Total 650 / 650 200 / 200 Balance 105.00 / 105.00 50 / 50 Lab / Micro Data 12/03/24 05:02 12/03/24 05:02 Labs: Laboratory Results - last 24 hr 12/02/24 10:21: POC Glucose 74 12/02/24 10:36: WBC 9.6, RBC 3.13 L, Hgb 9.8 L, Hct 29.5 L, MCV 94.2 H, MCH 31.3, MCHC 33.2, RDW Std Deviation 46.7 H, RDW Coeff of Elmer 13.8, Plt Count 173, MPV 10.2, Sodium 140, Potassium 4.3, Chloride 102, Carbon Dioxide 25.5, Anion Gap 12, BUN 33 H, Creatinine 2.18 H, Estim Creat Clear Calc 28.53 L, Est GFR (MDRD) Non-Af 29 L, BUN/Creatinine Ratio 15.3, Glucose 77, Hemoglobin A1c 6.9 H, Calcium 8.7, Magnesium 2.3 H, Procalcitonin 0.03 12/02/24 11:06: Urine Color Yellow, Urine Clarity Clear, Urine pH 7.0, Ur Specific [place] 1.010, Urine Protein Negative, Urine Glucose (UA) Normal, Urine Ketones Negative, Urine Occult Blood Negative, Urine Nitrite Negative, Urine Bilirubin Negative, Urine Urobilinogen Normal, Ur Leukocyte Esterase Negative, Urine RBC 0 SEEN, Urine WBC 0 SEEN, Ur Squamous Epith Cells 0 SEEN, Urine Bacteria 0 SEEN, Urine Mucus 0 SEEN 12/02/24 12:44: POC Glucose 78 12/02/24 14:06: POC Glucose 108 H 12/02/24 15:11: POC Glucose 199 H 12/02/24 16:09: POC Glucose 203 H 12/02/24 16:58: POC Glucose 210 H 12/02/24 18:06: POC Glucose 235 H 12/02/24 23:39: POC Glucose 162 H 12/03/24 05:02: WBC 5.7, RBC 2.77 L, Hgb 8.6 L, Hct 26.2 L, MCV 94.6 H, MCH 31.0, MCHC 32.8, RDW Std Deviation 48.0 H, RDW Coeff of Elmer 14.0, Plt Count 158, MPV 10.2, Immature Gran % (Auto) 0.200, Neut % (Auto) 59.1, Lymph % (Auto) 27.6, [place] % (Auto) 9.6, Eos % (Auto) 3.0, Baso % (Auto) 0.5, Absolute Neuts (auto) 3.4, Absolute Lymphs (auto) 1.58, Nucleated RBC % 0, Sodium 139, Potassium 3.8, Chloride 102, Carbon Dioxide 28.1, Anion Gap 9, BUN 32 H, Creatinine 2.28 H, E stim Creat Clear Calc 27.26 L, Est GFR (MDRD) Non-Af 28 L, BUN/Creatinine Ratio 14.0, Glucose 49 L, Calcium 8.4, Total Bilirubin 0.39, AST 18, ALT 11, Alkaline Phosphatase 77, Total Protein 6.6, Albumin 3.3 L, Globulin 3.3, Albumin/Globulin Ratio 1.0 12/03/24 06:17: POC Glucose 29 L* 12/03/24 06:46: POC Glucose 157 H Radiography Diagnostic Testing: Radiology Impression Brain CT 12/02/24 11:22 IMPRESSION: 1. Generalized brain atrophy. 2. Small vessel ischemic/degenerative changes. 3. No acute intracranial hemorrhage, midline shift or mass effect. If symptoms persist, further evaluation with MRI is recommended. Reading Location: [facility] Acute Abdomen Series 12/02/24 11:30 IMPRESSION: No acute cardiopulmonary process identified radiographically. The patient appears to be mildly constipated. There is a mild ileus without evidence of bowel obstruction. Reading Location: [facility] Rhythm Strip Rhythm Strip: Sinus Rhythm Rate: 69 Ectopy: None Physical Exam Narrative Physical Examination: General: Awake, alert, oriented to self, place, year, feels well currently in a been asking for discharge however discussed that this morning early he did have a recurrent episode of low blood sugar. Skin: Normal color, normal turgor, no icterus, no cyanosis except for bilateral lower extremity venous stasis skin changes, occasional stage ecchymoses and abrasions. HEENT: AT/NC, EOMI, PERRLA, MMM. Lungs: Diminished, greater bases, poor effort, no rales, ronchi or wheezing. Heart: Regular rate and rhythm; no gallop, rub audible. Abdomen: Soft, obese, NTTP, mildly hyperactive BS. Extremities: No cyanosis, no clubbing, pedal to mid castrejon 1-2+ pitting edema, chronic, see skin. Neurological: Patient awake, alert, oriented as noted, cognitive function suspect baseline intact; pupils equally reactive to light and accommodation, cranial nerves grossly normal, moving all 4 extremities, no focal deficits, strength improving, moderately globally decreased. Psychiatric: Affect appears more interactive, normal, no acute evidence of depressive or anxiety feelings. Assessment & Plan Assessment/Plan (1) Encephalopathy acute: PLAN: Plan The patient is an 84 y/o M w/ PMHx: CAD s/p PCI, Former tobacco use, BPH with obstructive pathology, CKD stage IV, Chronic macrocytic anemia/iron deficiency anemia, GERD, HFpEF, HTN, HLD, Hypothyroidism, COPD with Chronic Hypoxic Respiratory Failure (2-3L NC), Diabetes mellitus type II with chronic neuropathy, Obesity who presents to [facility] ED on 12/02/2024 with history of an episode of confusion reportedly not recognizing his neighbors and unable to perform normal routine activities noted to be home alone and unclear exact onset time prompting EMS call with noted blood sugar 74 with improvement to 89 with mentation and confusion improving with patient reporting were calling being mildly confused but no other complaints aside from mild dizziness in the morning but this is completely resolved in addition to mild constipation over the last 2 to 3 days with no abdominal pain associated with recent evaluation in the ED 11/10/2024 secondary mechanical fall with unremarkable evaluation as time but given episode prompted ED evaluation. #1. Acute Metabolic Encephalopathy secondary to Acute Hypoglycemia with underlying Diabetes mellitus type II w/ chronic diabetic chronic neuropathy, suspect noncompliance potentially recurrent medication errors with adult failure to thrive, debility: Admitted to PCU, initially maintained on IV dextrose supplementation, held all SC/oral home regimen, allowed broadened regular diet, maintained on serial q 1 hour accu checks. 12/02/24 evening BS improved, d/c dextrose with continued stable BS, changed to ADA diet w/ accu checks with ISS only. HgbA1c 6.9%. Nutrition consulted for education/teaching. Procalcitonin 0.03. Mag 2.3. 12/03/24 early AM without any of his diabetic regimen recurrent hypoglycemia w/ HS in the 20s w/ repeat confirmation check on CMP w/ glucose 49, still alert and functional, given amp. Will obtain initial evauation with TSH/FT4, cortisol, ACTH. Likely will need follow-up with Endocrinology outpatient. PT/OT/CM consulted for discharge planning. #2. Acute on chronic constipation: Plain film of the abdomen with significant evidence of a moderate to large amount of stool and gas present throughout the mildly distended colon, will initiate bowel regimen, monitor I's and O's. #3. CAD: Status post PCI, will continue aspirin/Plavix, statin, Coreg, not on KOBY/ARB likely secondary to underlying renal disease. #4. Chronic COPD with chronic hypoxic respiratory failure 2 to 3 L nasal cannula baseline: Will maintain on home oxygen supplementation, hold home inhalers in the interim maintain on ATC duonebs, PRN albuterol, HOB, IS parameters. #5. HFpEF: Will continue aspirin/Plavix, statin, Coreg, Ranexa, not on KOBY/ARB likely secondary to underlying renal disease, continue Lasix regimen, monitor weights. Judiciously hydrating with dextrose solution, monitor for overload. #6. Chronic Kidney Disease Stage IV per GFR trending: Admission BUN/Cr 33/2.18, GFR 29, baseline renal function primarily 1.9-2.3 more recently, most recently noted 11/21/2024 creatinine 2.32. 12/03/24 BUN/Cr 32/2.28, GFR 28. #7. Chronic macrocytic anemia/iron deficiency anemia: Admission hemoglobin 9.8, MCV 94.2 only mildly elevated, baseline hemoglobin more recently 8-9 range, continue to trend. Continue iron supplementation. 12/03/24 Hgb 8.6, PCV 94.6. #8. Hypothyroidism: Will continue patient on levothyroxine regimen. #9. Hypertension: Continue home regimen including amlodipine, Coreg, Lasix with hold parameters as needed, PRN hydralazine. #10. Hyperlipidemia: Will continue patient home statin therapy. #11. BPH with obstructive pathology: Will continue patient home Flomax regimen, monitor for retention. #12. Former tobacco use: Encourage continued tobacco cessation. #13. GERD: Continue patient on famotidine regimen. #14. DVT prophylaxis: Heparin. #15. 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 Full Code status. Charges/Coding Visit Charges Inpatient E&M: 43133 [facility] Hosp L3
[2024-12-03 08:59] LABS: CORTISOL AM 4.76 ug/dL (6.02-18.40); CORTISOL PM 4.76 ug/dL (2.68-10.50)
--- NOTE | 2024-12-03 08:59 | CASEMGMT ---
Addendum entered by Nai Noguera 12/03/24 09:16: Social Work SW did create in [facility] a list of snf facilities in network w/pt's insurance, in pt's preferred geographic area and complete w/quality and resource use data, should it be needed. OLEGARIO Szymanski Original Note: Social Work SW met w/pt, reviewed prior level of function and anticipated discharge plan. PCP: Dr. Bhakta Specialists: [facility] Insurance: [employer] Medicare, [place] Prescription Benefit: Yes Preferred Pharmacy: Pt cannot recall if [facility] is correct for home delivered medications, states uses [facility] for short term medications. SW added this to pt's chart and put it as pt's preferred pharmacy. LW/POA: Pt states has completed documents, SW did let pt know they are not on file and asked if his daughter can bring in. Pt states his daughter Lashell Key is POA. LNOK: Daughter Lashell. Pt states has other children but they are not in communication Living arrangements/Prior level of function: Pt lives home alone in an apartment, no steps to enter. Pt states is independent with dressing, bathing, using restroom. Pt states daughter does help w/cooking, cleaning, setting up medication. Pt states he feels he is managing well at home, though his daughter may not agree. Transportation: Pt states he and daughter both drive DME: Pt has a walker, cane, shower chair, raised toilet seat,grab bars, pulse Ox, home O2 through [employer] w/portability, pt states he is on 3LPM. This cannot be verified today, can be verified Thursday. HHC: Had HHC after left TCU, however pt states it was not helpful so did not continue this for long. Pt has had CCN also SNF: Pt was in TCU in March of 2024. Plan: Pt would like to return home if able, if SNF needed he would like a referral back to TCU. SW did educate pt that if he does need SNF for rehab can make a referral to TCU, but will also bring him a list for additional choices should TCU be full. If pt is able to return home, he has stated he would not want HHC. SW will continue to follow, will follow up once pt has had PT/OT. OLEGARIO Szymanski
[2024-12-03] MEDS: Aspirin E.C. 81 MG Tablet PO (09:11)
[2024-12-03] MEDS: Heparin Injection (Vial) 5,000 UNIT/ML VIAL 5000 UNIT SC ×2 (09:12→22:42)
[2024-12-03] MEDS: Polyethylene Glycol 3350 17 GM PACKET PO (09:13)
[2024-12-03] MEDS: Senna/Docusate Sodium 1 Tablet PO (09:14)
--- NOTE | 2024-12-03 13:50 | CASEMGMT ---
Addendum entered by Nai Noguera 12/03/24 13:59: Social Work Daughter asked about bringing in the dog to visit pt, she states brought in dog's immunizations and was given permission last time pt was here. SW checked w/scrap charger, she states this is fine. SW let daughter know. OLEGARIO Szymanski Original Note: Social Work SW reviewed PT notes, they are stating pt would benefit from SNF/TCU. SW called daughter to follow up. SW introduced self, role of SW. SW explained spoke w/pt earlier, and he did agree to a TCU referral--pt was showing a bit of confusion however so did want to speak w/her as well. SW stated that therapy is recommending pt go somewhere for rehab, and SW will make referral to TCU. SW let daughter however that if there is not a bed in TCU, would need additional choices. SW has SNF list and can leave in room for pt and daughter to review. Daughter states will review and let SW know additional choices if needed. She did ask about [facility], may be agreeable to a referral there, or [facility]. SW let her know that [facility] not in network but [facility] is. SW explained will start w/TCU and will follow up to confirm additional choices on Thursday if needed. SW spoke w/pt again, let him know spoke to daughter and will make referral to TCU. SW gave pt the list of retirement facilities should it be needed, in the event TCU cannot take pt. Pt agreeable to TCU referral but then states he hopes to be home by Thursday. SW gently explained again to pt we are looking at him getting some rehab before going home. Pt states understanding. Referral made to TCU, SW to follow up Thursday for additional referrals should it be needed. OLEGARIO Szymanski
[2024-12-04] VITALS (10 sets, daily range): BP systolic 133–151; BP diastolic 53–70; PULSE 63–75; RESP 14–18; TEMP 36.1–36.6; O2SAT 91–100; BMI 37.1
[2024-12-04 04:37] LABS: Hematocrit 26.2 % (40-54); Hemoglobin 8.4 g/dL (13.0-16.5); Immature Granulocytes Count 0.020 X10^3/uL (0.0-0.0); Mean Corp Hgb Conc 32.1 g/dL (32-36); Mean Corpuscular Volume 96.7 fL (80-94); Mean Platelet Vol. 10.1 fl (6.2-12.0); NRBC Flagged by Analyzer 0 % (0-5); Platelet Count 150 K/mm3 (150-450); RBC Distribution Width CV 13.6 % (11.6-14.6); RBC Distribution Width SD 47.8 fl (35.1-43.9); Red Blood Count 2.71 M/mm3 (4.6-6.2); White Blood Count 5.9 K/mm3 (4.4-11.0)
[2024-12-04 05:18] LABS: AST(SGOT) 19 U/L (<=37); Alanine Aminotransfer ALT/SGPT 9 U/L (<=46); Albumin, Serum 3.3 g/dL (3.4-4.8); Alkaline Phosphatase 76 U/L (40-129); Anion Gap 9 (5-15); BUN 34 mg/dL (4-19); BUN/Creat Ratio 15.6 RATIO (10-20); Calcium,Total 8.5 mg/dL (7.6-11.0); Carbon Dioxide 28.8 mmol/L (21.0-32.0); Chloride 103 mmol/L (98-108); Estimated Creatinine Clearance 28.56 ml/min (50-250); Globulin 3.1 g/dL (2.2-4.2); Glucose 84 mg/dL (70-99); Potassium 4.1 mmol/L (3.3-5.1)
--- NOTE | 2024-12-04 06:50 | PN.HOSP_ITS ---
Reason for Visit Chief Complaint: Confusion, transient, low BS. Subjective Subjective Patient with no acute events overnight per self and per nursing report. His blood sugars remained appropriate with no further episodes of hypoglycemia despite again being off of all diabetic medication and only on a low-dose insulin sliding scale and diabetic diet. PT/OT assessments the day prior with significant recommendation for skilled facility placement needs precertification pending. Patient denies fevers, chills, nausea, emesis, abdominal pain, chest pain or dyspnea. Objective Data Objective Data Vital Signs: Vital Signs Temp Pulse Resp BP Pulse Ox O2 Del Method O2 Flow Rate 97.0 F L 63 18 137/67 H 100 Nasal Cannula 2 12/04/24 03:14 12/04/24 03:14 12/04/24 03:14 12/04/24 03:14 12/04/24 03:14 12/04/24 03:14 12/03/24 22:39 Oxygen Flow Rate (L/min) 2 Oxygen Delivery Method Nasal Cannula Weight: 230 lb 2.601 oz Body Mass Index (BMI) 37.1 Intake & Output: Intake and Output for Last 24 Hours 12/02/24 12/03/24 12/04/24 23:59 23:59 23:59 Intake Total 755.00 / 755.00 850 / 850 Output Total 650 / 650 1450 / 1450 400 / 400 Balance 105.00 / 105.00 -600 / -600 -400 / -400 Lab / Micro Data 12/04/24 04:10 12/04/24 04:10 Labs: Laboratory Results - last 24 hr 12/03/24 05:05: TSH 3.300, Free T4 0.80, Cortisol AM Sample 4.76 L, Cortisol PM Sample 4.76 12/03/24 06:17: POC Glucose 29 L* 12/03/24 06:46: POC Glucose 157 H 12/03/24 11:54: POC Glucose 122 H 12/03/24 16:52: POC Glucose 141 H 12/03/24 22:46: POC Glucose 138 H 12/04/24 04:10: WBC 5.9, RBC 2.71 L, Hgb 8.4 L, Hct 26.2 L, MCV 96.7 H, MCH 31.0, MCHC 32.1, RDW Std Deviation 47.8 H, RDW Coeff of Elmer 13.6, Plt Count 150, MPV 10.1, Immature Gran % (Auto) 0.300, Neut % (Auto) 56.9, Lymph % (Auto) 27.9, [place] % (Auto) 9.6, Eos % (Auto) 4.6, Baso % (Auto) 0.7, Absolute Neuts (auto) 3.4, Absolute Lymphs (auto) 1.65, Nucleated RBC % 0, Sodium 140, Potassium 4.1, Chloride 103, Carbon Dioxide 28.8, Anion Gap 9, BUN 34 H, Creatinine 2.18 H, E stim Creat Clear Calc 28.56 L, Est GFR (MDRD) Non-Af 29 L, BUN/Creatinine Ratio 15.6, Glucose 84, Calcium 8.5, Total Bilirubin 0.33, AST 19, ALT 9, Alkaline Phosphatase 76, Total Protein 6.4, Albumin 3.3 L, Globulin 3.1, Albumin/Globulin Ratio 1.1 Rhythm Strip Rhythm Strip: Sinus Rhythm Rate: 69 Ectopy: None Physical Exam Narrative Physical Examination: General: Awake, alert, oriented to x 3, notes feeling improved however he reports that he had a low blood sugar however when discussed with nursing staff this did not occur and was actually his day prior. Also from review of PT/OT notes it appears as though he is intermittently confused which from discussion with daughter unfortunately is his baseline. Skin: Normal color, normal turgor, no icterus, no cyanosis except for bilateral lower extremity venous stasis skin changes, occasional stage ecchymoses and abrasions. HEENT: AT/NC, EOMI, PERRLA, MMM. Lungs: Diminished, greater bases, poor effort, no rales, ronchi or wheezing. Heart: Regular rate and rhythm; no gallop, rub audible. Abdomen: Soft, obese, NTTP, mildly hyperactive BS. Extremities: No cyanosis, no clubbing, pedal to mid castrejon 1+ pitting edema, chronic, see skin. Neurological: Patient awake, alert, oriented as noted, cognitive function suspect baseline intact; pupils equally reactive to light and accommodation, cranial nerves grossly normal, moving all 4 extremities, no focal deficits, strength improving, moderately globally decreased. Psychiatric: Affect appears normal but does have underlying waxing and waning confusion, no acute evidence of depressive or anxiety feelings. Assessment & Plan Assessment/Plan (1) Encephalopathy acute: PLAN: Plan The patient is an 84 y/o M w/ PMHx: CAD s/p PCI, Former tobacco use, BPH with obstructive pathology, CKD stage IV, Chronic macrocytic anemia/iron deficiency anemia, GERD, HFpEF, HTN, HLD, Hypothyroidism, COPD with Chronic Hypoxic Respiratory Failure (2-3L NC), Diabetes mellitus type II with chronic neuropathy, Obesity who presents to [facility] ED on 12/02/2024 with history of an episode of confusion reportedly not recognizing his neighbors and unable to perform normal routine activities noted to be home alone and unclear exact onset time prompting EMS call with noted blood sugar 74 with improvement to 89 with mentation and confusion improving with patient reporting were calling being mildly confused but no other complaints aside from mild dizziness in the morning but this is completely resolved in addition to mild constipation over the last 2 to 3 days with no abdominal pain associated with recent evaluation in the ED 11/10/2024 secondary mechanical fall with unremarkable evaluation as time but given episode prompted ED evaluation. #1. Acute Metabolic Encephalopathy secondary to Acute Hypoglycemia with underlying Diabetes mellitus type II w/ chronic diabetic chronic neuropathy, suspect noncompliance potentially recurrent medication errors with adult failure to thrive, debility: Admitted to PCU, initially maintained on IV dextrose supplementation, held all SC/oral home regimen, allowed broadened regular diet, maintained on serial q 1 hour accu checks. 12/02/24 evening BS improved, d/c dextrose with continued stable BS, changed to ADA diet w/ accu checks with ISS only. HgbA1c 6.9%. Nutrition consulted for education/teaching. Procalcitonin 0.03. Mag 2.3. 12/03/24 early AM without any of his diabetic regimen recurrent hypoglycemia w/ HS in the 20s w/ repeat confirmation check on CMP w/ glucose 49, still alert and functional, given amp. TSH 3.30, free T40.80, cortisol a.m. 4.76, cortisol p.m. 4.76, ACTH pending. Would benefit from consideration of follow-up with Endocrinology outpatient. 12/04/2024 patient with no further hypoglycemic events only on insulin sliding scale. PT/OT/CM consulted for discharge planning with precertification pending. #2. Acute on chronic constipation: Plain film of the abdomen with significant evidence of a moderate to large amount of stool and gas present throughout the mildly distended colon, will initiate bowel regimen, monitor I's and O's. #3. CAD: Status post PCI, will continue aspirin/Plavix, statin, Coreg, not on KOBY/ARB likely secondary to underlying renal disease. #4. Chronic COPD with chronic hypoxic respiratory failure 2 to 3 L nasal cannula baseline: Will maintain on home oxygen supplementation, hold home inhalers in the interim maintain on ATC duonebs, PRN albuterol, HOB, IS parameters. #5. HFpEF: Will continue aspirin/Plavix, statin, Coreg, Ranexa, not on KOBY/ARB likely secondary to underlying renal disease, continue Lasix regimen, monitor weights. Judiciously hydrating with dextrose solution, monitor for overload. #6. Chronic Kidney Disease Stage IV per GFR trending: Admission BUN/Cr 33/2.18, GFR 29, baseline renal function primarily 1.9-2.3 more recently, most recently noted 11/21/2024 creatinine 2.32. 12/04/24 BUN/Cr 34/2.18, GFR 29. #7. Chronic macrocytic anemia/iron deficiency anemia: Admission hemoglobin 9.8, MCV 94.2 only mildly elevated, baseline hemoglobin more recently 8-9 range, continue to trend. Continue iron supplementation. 12/04/24 Hgb 8.4, MCV 96.7. #8. Hypothyroidism: Will continue patient on levothyroxine regimen. #9. Hypertension: Continue home regimen including amlodipine, Coreg, Lasix with hold parameters as needed, PRN hydralazine. #10. Hyperlipidemia: Will continue patient home statin therapy. #11. BPH with obstructive pathology: Will continue patient home Flomax regimen, monitor for retention. #12. Former tobacco use: Encourage continued tobacco cessation. #13. GERD: Continue patient on famotidine regimen. #14. DVT prophylaxis: Heparin. #15. CODE status: Patient denies having healthcare power of litigation attorney associate or living will set up but he knows his daughter would be his medical decision-maker if necessary. Full Code status. Charges/Coding Visit Charges Inpatient E&M: 00009 Subs Hosp L2
[2024-12-04] MEDS: Polyethylene Glycol 3350 17 GM PACKET PO (10:09)
[2024-12-04] MEDS: Heparin Injection (Vial) 5,000 UNIT/ML VIAL 5000 UNIT SC ×2 (10:10→22:13)
[2024-12-04] MEDS: Aspirin E.C. 81 MG Tablet PO (10:11)
[2024-12-04] MEDS: Senna/Docusate Sodium 1 Tablet PO (10:14)
[2024-12-05] VITALS (9 sets, daily range): BP systolic 114–153; BP diastolic 64–78; PULSE 70–95; RESP 16–20; TEMP 36.6–36.8; O2SAT 86–99; BMI 36.3
[2024-12-05 06:16] LABS: Hematocrit 26.9 % (40-54); Hemoglobin 8.7 g/dL (13.0-16.5); Immature Granulocytes Count 0.030 X10^3/uL (0.0-0.0); Mean Corp Hgb Conc 32.3 g/dL (32-36); Mean Corpuscular Volume 96.1 fL (80-94); Mean Platelet Vol. 10.3 fl (6.2-12.0); NRBC Flagged by Analyzer 0 % (0-5); Platelet Count 170 K/mm3 (150-450); RBC Distribution Width CV 13.5 % (11.6-14.6); RBC Distribution Width SD 47.7 fl (35.1-43.9); Red Blood Count 2.80 M/mm3 (4.6-6.2); White Blood Count 6.1 K/mm3 (4.4-11.0)
[2024-12-05 06:50] LABS: AST(SGOT) 20 U/L (<=37); Alanine Aminotransfer ALT/SGPT 11 U/L (<=46); Albumin, Serum 3.5 g/dL (3.4-4.8); Alkaline Phosphatase 83 U/L (40-129); Anion Gap 9 (5-15); BUN 37 mg/dL (4-19); BUN/Creat Ratio 16.9 RATIO (10-20); Calcium,Total 8.8 mg/dL (7.6-11.0); Carbon Dioxide 30.2 mmol/L (21.0-32.0); Chloride 102 mmol/L (98-108); Estimated Creatinine Clearance 28.23 ml/min (50-250); Globulin 3.3 g/dL (2.2-4.2); Glucose 117 mg/dL (70-99); Potassium 4.1 mmol/L (3.3-5.1)
--- NOTE | 2024-12-05 08:33 | CASEMGMT ---
Social Work Pt is accepted in TCU and precert has been started. Pt's daughter called CEASAR, CEASAR updated her that TCU has accepted pt and precert is started. SW/CM will keep pt informed around the precert, will continue to follow. OLEGARIO Szymanski
[2024-12-05] MEDS: Aspirin E.C. 81 MG Tablet PO (09:02)
[2024-12-05] MEDS: Senna/Docusate Sodium 1 Tablet PO (09:02)
[2024-12-05] MEDS: Polyethylene Glycol 3350 17 GM PACKET PO (09:06)
[2024-12-05] MEDS: Heparin Injection (Vial) 5,000 UNIT/ML VIAL 5000 UNIT SC (09:06)
--- NOTE | 2024-12-05 16:23 | PCM.TXEXTCAR ---
Diet Diet Order/Speech Therapy: INPATIENT Hospital Diet / Speech Therapy Order(s) 12/02/24 18:17 ADA [Diet: Cardiac: Calorie-Controlled] Dietary Modifications:: Consistent Carbohydrate How many daily calories?: 1800 calorie Routine Orders/Code Status Enema Type: Fleetz Enema Frequency: Daily PRN Suppository Type: Dulcolax 10mg Suppository Frequency: Daily PRN DC O2, CPAP, BIPAP needs Home O2 Discharge instructions: No Wound(s) Bilat Knee: Wound Type: Abrasion Therapies Weight Bearing: Weight bearing as tolerated Physical Therapy: Eval and Treat Occupational Therapy: Eval and Treat Problem/Diagnosis (1) Encephalopathy acute: Status: Acute Code(s): G93.40 - Encephalopathy, unspecified Allergies/Procedures Done in Hospital Allergies No Known Allergies Allergy (Verified 12/02/24 10:16) Procedures: None Type of Care/Length of Stay Estimated LOS: Convalescent Care Less Than 30 days Type of Care Needed: Skilled Rehab Potential: Fair Prognosis: Fair Additional Orders/Day of Discharge Day of Discharge: 12/05/24 Dietary and Speech Recommendations Dietitian Recommendations/Changes: Adjust to cardiac; consistent carbohydrate diet. Will monitor weight trends. Discharge Plan Admission Admit Date/Time: 12/02/24 13:18 Primary Reason for Your Visit: acute encephalopathy, hypoglycemia Attending Provider: Nora Ramirez Primary Care Provider: Kain Bhakta [employer] Providers: Afsaneh Kapoor; Nora Ramirez Instructions Patient Instructions: Diabetes Low Blood Sugar Ch, ED Hypoglycemia, Nondiabetic Discharge Orders/Prescriptions Prescriptions: New insulin degludec [Tresiba FlexTouch U-100] 100 unit/mL (3 mL) insulin pen 15 unit subcut QHS Qty: 15 0RF Continued ascorbate calcium (vitamin C) 500 mg tablet 500 mg PO DAILY polysaccharide iron complex [Ferrex 150] 150 mg iron capsule 150 mg PO DAILY ranolazine 500 mg tablet extended release 12 hr 500 mg PO BID Qty: 60 11RF famotidine 40 MG tablet 40 mg PO DAILY gabapentin 300 mg capsule 300 mg PO BID glimepiride 4 mg Tablet 4 mg PO DAILY levothyroxine 25 mcg Tablet 25 mcg PO DAILY furosemide 40 mg Tablet 40 mg PO BIDLX 30 Days Qty: 60 0RF atorvastatin 40 mg Tablet 40 mg PO QHS 30 Days Qty: 30 0RF carvedilol 6.25 mg Tablet 6.25 mg PO BID 30 Days Qty: 60 0RF amlodipine 5 mg Tablet 5 mg PO DAILY 30 Days Qty: 30 0RF tamsulosin 0.4 mg Capsule 0.4 mg PO DAILY@1730 30 Days Qty: 30 0RF nitroglycerin 0.4 mg Tablet, Sublingual 0.4 mg sublingual Q5M PRN (Reason: Cardiac/Chest Pain) Qty: 30 2RF aspirin 81 mg Tablet,Delayed Release (Dr/Ec) 81 mg PO BREAKFAST Qty: 30 2RF clopidogrel 75 mg tablet 75 mg PO DAILY trazodone 50 mg tablet 25 mg PO QHS Discontinued insulin degludec [Tresiba FlexTouch U-200] 200 unit/mL (3 mL) insulin pen 40 unit subcut BID Referrals / Follow Up: Kain Bhakta Chi, MD [Primary Care Provider] - Within 2 Weeks Disposition Disposition (needs filled in before D/C Order can be placed): NonSkilled NH/Intermed Care
--- NOTE | 2024-12-05 16:28 | DCINST_ITS ---
Discharge Instructions DC O2, CPAP, BIPAP needs Home O2 Discharge instructions: No Dressing / Incision Discharge Activity: Return to Normal Activity Weight Bearing Status: Weight bearing as tolerated Dressing / Incision Call your doctor if you observe: Fever of 101 or Higher, Shortness of breath, Dizziness and Chest pain Follow Up Care Test Results: Test results from this visit will be discussed in further detail at your follow- up appointment, if applicable. Discharge Plan Admission Admit Date/Time: 12/02/24 13:18 Primary Reason for Your Visit: acute encephalopathy, hypoglycemia Attending Provider: Nora Ramirez Primary Care Provider: Kain Bhakta [employer] Providers: Afsaneh Kapoor; Nora Ramirez Instructions Patient Instructions: Diabetes Low Blood Sugar Ch, ED Hypoglycemia, Nondiabetic Discharge Orders/Prescriptions Prescriptions: New insulin degludec [Tresiba FlexTouch U-100] 100 unit/mL (3 mL) insulin pen 15 unit subcut QHS Qty: 15 0RF Continued ascorbate calcium (vitamin C) 500 mg tablet 500 mg PO DAILY polysaccharide iron complex [Ferrex 150] 150 mg iron capsule 150 mg PO DAILY ranolazine 500 mg tablet extended release 12 hr 500 mg PO BID Qty: 60 11RF famotidine 40 MG tablet 40 mg PO DAILY gabapentin 300 mg capsule 300 mg PO BID glimepiride 4 mg Tablet 4 mg PO DAILY levothyroxine 25 mcg Tablet 25 mcg PO DAILY furosemide 40 mg Tablet 40 mg PO BIDLX 30 Days Qty: 60 0RF atorvastatin 40 mg Tablet 40 mg PO QHS 30 Days Qty: 30 0RF carvedilol 6.25 mg Tablet 6.25 mg PO BID 30 Days Qty: 60 0RF amlodipine 5 mg Tablet 5 mg PO DAILY 30 Days Qty: 30 0RF tamsulosin 0.4 mg Capsule 0.4 mg PO DAILY@1730 30 Days Qty: 30 0RF nitroglycerin 0.4 mg Tablet, Sublingual 0.4 mg sublingual Q5M PRN (Reason: Cardiac/Chest Pain) Qty: 30 2RF aspirin 81 mg Tablet,Delayed Release (Dr/Ec) 81 mg PO BREAKFAST Qty: 30 2RF clopidogrel 75 mg tablet 75 mg PO DAILY trazodone 50 mg tablet 25 mg PO QHS Discontinued insulin degludec [Tresiba FlexTouch U-200] 200 unit/mL (3 mL) insulin pen 40 unit subcut BID Referrals / Follow Up: Kain Bhakta Chi, MD [Primary Care Provider] - Within 2 Weeks Disposition Disposition (needs filled in before D/C Order can be placed): NonSkilled NH/Intermed Care
--- NOTE | 2024-12-05 16:30 | PCM.DC.SUM ---
Providers Date of Admission: 12/02/24 Date of Discharge: 12/05/24 Primary Care Physician: Dr. Kain Bhakta MD Reason For Visit: ENCEPHALOPATHY, HYPOGLYCEMIA Diagnosis Discharge Diagnosis (1) Encephalopathy acute: Status: Acute Code(s): G93.40 - Encephalopathy, unspecified Medications at Discharge Home Medications famotidine 40 mg tablet 40 mg PO DAILY GERD 07/13/18 glimepiride 4 mg tablet 4 mg PO DAILY DIABETES 06/23/22 levothyroxine 25 mcg tablet 25 mcg PO DAILY THYROID 07/09/22 ascorbate calcium (vitamin C) 500 mg tablet 500 mg PO DAILY SUPPLEMENT 03/09/24 gabapentin 300 mg capsule 300 mg PO BID NEUROPATHY 03/09/24 polysaccharide iron complex 150 mg iron capsule (Ferrex) 150 mg PO DAILY SUPPLEMENT 03/09/24 aspirin 81 mg tablet,delayed release 81 mg PO BREAKFAST heart #30 tabs 03/23/24 nitroglycerin 0.4 mg sublingual tablet 0.4 mg sublingual Q5M PRN Cardiac/Chest Pain #30 tabs 03/23/24 amlodipine 5 mg tablet 5 mg PO DAILY 30 days #30 tabs 04/07/24 atorvastatin 40 mg tablet 40 mg PO QHS 30 days #30 tabs 04/07/24 carvedilol 6.25 mg tablet 6.25 mg PO BID 30 days #60 tabs 04/07/24 furosemide 40 mg tablet 40 mg PO BIDLX 30 days #60 tabs 04/07/24 tamsulosin 0.4 mg capsule 0.4 mg PO DAILY@1730 30 days #30 caps 04/07/24 ranolazine 500 mg tablet,extended release,12 hr 500 mg PO BID #60 tabs 09/13/24 clopidogrel 75 mg tablet 75 mg PO DAILY blood thinner 11/21/24 trazodone 50 mg tablet 25 mg PO QHS sleep 11/21/24 insulin degludec 100 unit/mL (3 mL) subcutaneous pen (Tresiba FlexTouch U-100 insulin) 15 unit (0.15 mL) subcut QHS #15 mL 12/05/24 Hospital Course Operations None Procedures None Summary of Care Provided Minutes Spent on Discharge: 45 Hospital Course: Latrell is an 84 y/o male with a PMh as outlined who was admitted via the ED On 12/02/2024 with a complaint of confusion and hypoglycemia. He could not recognize his neighbors. Blood sugar was 74. CT of the brain showed no acute intracranial pathology. Acute abdominal series showed moderate to large amount of stool and gas in the mildly distended colon. EKG showed sinus rhythm with first degree AV block. HE was admitted and managed for acute metabolic encephalopathy due to hypoglycemia in the settiing of diabetes mellitus as well as acute on chronic constipation. His lantus was held. Hypoglycemia resolved. Constipation resolved with bowel regimen. He worked with PT/OT and it was recommended that he go to a short term SNF or rehab. He was initially reluctant but then agreed. He was therefore dc'd to TCU on 12/05/2024. His lantus was cut down from 40 units bid to 15 units qhs. He is to follow up with his PCP within 1-2 weeks. Patient seen and examined prior to discharge. He had no active complaints and had an uneventful night. Review of systems is otherwise negative. Labs and vitals reviewed. Home meds reviewed and reconciled. Physical Exam Const alert, oriented x3 and no apparent distress General Appearance: cooperative and comfortable Orientation / Consciousness: awake Exam Limitations: no limitations HEENT normocephalic, head/scalp atraumatic, hearing grossly normal bilaterally, moist oral mucous membranes and oropharynx normal Mouth: oral and palatal mucosa normal Eyes PERRL, EOMs intact bilaterally and conjunctivae normal Neck no lymphadenopathy and supple Resp normal respiratory effort, no use of accessory muscles and clear to auscultation bilaterally Cardio regular rate, regular rhythm, S1 normal heart sound, S2 normal heart sound and no murmurs GI normal to inspection, nondistended, normoactive bowel sounds, soft to palpation and non-tender Extremity normal to inspection and full ROM Skin no rashes or lesions noted Neuro oriented x3, CN's II-XII intact bilaterally, moves all extremities and no focal motor deficits Sensorium / Orientation: awake and alert Motor Exam: strength 5/5 throughout Psych affect normal Weight / BMI Weight Weight: 225 lb 1.471 oz Body Mass Index (BMI) 36.3 ABG / Lab / Microbiology Data 12/05/24 05:34 12/05/24 05:34 Laboratory: Laboratory Results - last 24 hr 12/04/24 22:12: POC Glucose 141 H 12/05/24 03:39: POC Glucose 126 H 12/05/24 05:34: WBC 6.1, RBC 2.80 L, Hgb 8.7 L, Hct 26.9 L, MCV 96.1 H, MCH 31.1, MCHC 32.3, RDW Std Deviation 47.7 H, RDW Coeff of Elmer 13.5, Plt Count 170, MPV 10.3, Immature Gran % (Auto) 0.500, Neut % (Auto) 61.1, Lymph % (Auto) 23.2, [place] % (Auto) 10.1 H, Eos % (Auto) 4.6, Baso % (Auto) 0.5, Absolute Neuts (auto) 3.8, Absolute Lymphs (auto) 1.42, Nucleated RBC % 0, Sodium 141, Potassium 4.1, Chloride 102, Carbon Dioxide 30.2, Anion Gap 9, BUN 37 H, Creatinine 2.18 H, Estim Creat Clear Calc 28.23 L, Est GFR (MDRD) Non-Af 29 L, BUN/Creatinine Ratio 16.9, Glucose 117 H, Calcium 8.8, Total Bilirubin 0.38, AST 20, ALT 11, Alkaline Phosphatase 83, Total Protein 6.8, Albumin 3.5, Globulin 3.3, Albumin/Globulin Ratio 1.1 12/05/24 06:32: POC Glucose 113 H 12/05/24 11:29: POC Glucose 144 H 12/05/24 16:31: POC Glucose 207 H D/C Instructions Discharge Activity: Return to Normal Activity Weight Bearing Status: Weight bearing as tolerated Call your doctor if you observe: Fever of 101 or Higher, Shortness of breath, Dizziness and Chest pain DC O2, CPAP, BIPAP Needs Home O2 Discharge instructions: No Meaningful Use Info Meaningful Use Meaningful Use Diagnoses (Choose all that apply): None applicable Discharge Plan Admission Admit Date/Time: 12/02/24 13:18 Primary Reason for Your Visit: acute encephalopathy, hypoglycemia Attending Provider: Nora Ramirez Primary Care Provider: Kain Bhakta [employer] Consult[employer] Providers: Afsaneh Kapoor; Nora Ramirez Instructions Patient Instructions: Diabetes Low Blood Sugar Ch, ED Hypoglycemia, Nondiabetic Discharge Orders/Prescriptions Prescriptions: New insulin degludec [Tresiba FlexTouch U-100] 100 unit/mL (3 mL) insulin pen 15 unit subcut QHS Qty: 15 0RF Continued ascorbate calcium (vitamin C) 500 mg tablet 500 mg PO DAILY polysaccharide iron complex [Ferrex 150] 150 mg iron capsule 150 mg PO DAILY ranolazine 500 mg tablet extended release 12 hr 500 mg PO BID Qty: 60 11RF famotidine 40 MG tablet 40 mg PO DAILY gabapentin 300 mg capsule 300 mg PO BID glimepiride 4 mg Tablet 4 mg PO DAILY levothyroxine 25 mcg Tablet 25 mcg PO DAILY furosemide 40 mg Tablet 40 mg PO BIDLX 30 Days Qty: 60 0RF atorvastatin 40 mg Tablet 40 mg PO QHS 30 Days Qty: 30 0RF carvedilol 6.25 mg Tablet 6.25 mg PO BID 30 Days Qty: 60 0RF amlodipine 5 mg Tablet 5 mg PO DAILY 30 Days Qty: 30 0RF tamsulosin 0.4 mg Capsule 0.4 mg PO DAILY@1730 30 Days Qty: 30 0RF nitroglycerin 0.4 mg Tablet, Sublingual 0.4 mg sublingual Q5M PRN (Reason: Cardiac/Chest Pain) Qty: 30 2RF aspirin 81 mg Tablet,Delayed Release (Dr/Ec) 81 mg PO BREAKFAST Qty: 30 2RF clopidogrel 75 mg tablet 75 mg PO DAILY trazodone 50 mg tablet 25 mg PO QHS Discontinued insulin degludec [Tresiba FlexTouch U-200] 200 unit/mL (3 mL) insulin pen 40 unit subcut BID Referrals / Follow Up: Kain Bhakta Chi, MD [Primary Care Provider] - Within 2 Weeks Disposition Disposition (needs filled in before D/C Order can be placed): NonSkilled NH/Intermed Care Charges/Coding Visit Charges Inpatient E&M: 48245 Disch Hosp >30min
--- NOTE | 2024-12-05 16:48 | CASEMGMT ---
Patient has order for discharge to TCU. RN CM called daughter Lashell and updated regarding discharge to TCU today. Daughter voiced appreciation. RN CM updated patient regarding approval for TCU and discharge for today, patient voiced understanding. Med list pending for discharge packet, green sheet placed on chart.
--- NOTE | 2024-12-05 17:45 | NURSING ---
Report called to HENRY Carrera.
== END 2024-12-05 18:13 | disposition intermediate care facility (04) | DRG 637 ==
LOC: ED 13:31 → PCU 13:34
PROVIDERS: Admitting Provider Family Medicine; Emergency Provider Emergency Medicine; PCP Family Medicine Geriatric Medicine; Visit Provider Student in an Organized Health Care Education/Training Program
DX: E11.649 Type 2 diabetes mellitus with hypoglycemia without coma (principal); G93.41 Metabolic encephalopathy; J96.11 Chronic respiratory failure with hypoxia; N13.8 Other obstructive and reflux uropathy; I13.0 Hypertensive heart and chronic kidney disease with heart failure and stage 1 through stage 4 chronic kidney disease, or unspecified chronic kidney disease; I50.32 Chronic diastolic (congestive) heart failure; R62.7 Adult failure to thrive; E11.22 Type 2 diabetes mellitus with diabetic chronic kidney disease; D50.9 Iron deficiency anemia, unspecified; E03.9 Hypothyroidism, unspecified; N18.4 Chronic kidney disease, stage 4 (severe); J44.9 Chronic obstructive pulmonary disease, unspecified; E66.9 Obesity, unspecified; E11.40 Type 2 diabetes mellitus with diabetic neuropathy, unspecified; E78.5 Hyperlipidemia, unspecified; I25.10 Atherosclerotic heart disease of native coronary artery without angina pectoris; K21.9 Gastro-esophageal reflux disease without esophagitis; Z79.4 Long term (current) use of insulin; K59.09 Other constipation; I44.0 Atrioventricular block, first degree; S80.211A Abrasion, right knee, initial encounter; S80.212A Abrasion, left knee, initial encounter; W19.XXXA Unspecified fall, initial encounter; Z99.81 Dependence on supplemental oxygen; R53.81 Other malaise; N40.1 Benign prostatic hyperplasia with lower urinary tract symptoms; Z79.84 Long term (current) use of oral hypoglycemic drugs; Z79.82 Long term (current) use of aspirin; Z79.899 Other long term (current) drug therapy; Z79.02 Long term (current) use of antithrombotics/antiplatelets; Z79.890 Hormone replacement therapy; Z95.5 Presence of coronary angioplasty implant and graft; Z87.891 Personal history of nicotine dependence; Z68.36 Body mass index [BMI] 36.0-36.9, adult; Z91.148 Patient's other noncompliance with medication regimen for other reason
CPT/HCPCS: 36415; 70450; 74022; 80048; 80053; 81001; 82024; 82533; 82962; 83036; 83735; 84145; 84439; 84443; 85025; 85027; 93005; 94640; 94668; 97116; 97162; 97166; 97530; 97535; 97802; 99285; A4216

== ENCOUNTER 2024-12-05 18:20 | Inpatient (IN) | payer MEDICARE, SELFPAY ==
[2024-12-05 18:38] VITALS: BP 120/62; PULSE 73; RESP 18; TEMP 36.9; O2SAT 98; BMI 36.5
[2024-12-05] MEDS: 0.9% Saline Lock 10 ML Syringe IV (22:20)
[2024-12-05] MEDS: Insulin Glargine-YFGN 100 UNIT/ML Pen 15 UNIT SC (22:28)
[2024-12-06 05:35] VITALS: BP 126/61; PULSE 68
[2024-12-06 06:19] LABS: Anion Gap 11 (5-15); BUN 38 mg/dL (4-19); BUN/Creat Ratio 17.5 RATIO (10-20); Calcium,Total 8.7 mg/dL (7.6-11.0); Carbon Dioxide 27.6 mmol/L (21.0-32.0); Chloride 101 mmol/L (98-108); Estimated Creatinine Clearance 28.18 ml/min (50-250); Glucose 111 mg/dL (70-99); Potassium 4.1 mmol/L (3.3-5.1)
[2024-12-06 06:30] LABS: Hematocrit 27.7 % (40-54); Hemoglobin 9.1 g/dL (13.0-16.5); Immature Granulocytes Count 0.030 X10^3/uL (0.0-0.0); Mean Corp Hgb Conc 32.9 g/dL (32-36); Mean Corpuscular Volume 95.2 fL (80-94); Mean Platelet Vol. 10.3 fl (6.2-12.0); NRBC Flagged by Analyzer 0 % (0-5); Platelet Count 173 K/mm3 (150-450); RBC Distribution Width CV 13.6 % (11.6-14.6); RBC Distribution Width SD 47.6 fl (35.1-43.9); Red Blood Count 2.91 M/mm3 (4.6-6.2); White Blood Count 6.3 K/mm3 (4.4-11.0)
--- NOTE | 2024-12-06 07:36 | PCM.HP.STD ---
HPI - General General Date of Admission: 12/05/24 Date of Service: 12/06/24 Chief Complaint: Here for rehabilitation. HPI Narrative MARQUISE COLLEEN, is a 84 Male who presents with followin12/02/2024 [facility] ED confusion. Confused, did not recognize neighbors. EMS called, glucose 74, glucose given, repeat sugar 89. Confusion improved, confusion resolved. Too weak to walk. 12/02/2024 Admit [facility]. Encephalopathy 2/2 hypoglycemia. IV dextrose, Hold oral hypoglycemics, Hold insulin for hypoglycemia. PT/OT/CM. Bowel regimen for constipation. 12/03/2024 A1c 6.9, A1c goal < 8.5, diabetic diet, Lispro low dose sliding scale insulin. PT/OT/CM. 12/04/2024 No acute events overnight. Sugars controlled, off all diabetic medications, low dose Lispro SSI. PT/OT/CM for SNF. 12/05/2024 Admit to TCU with debility, here for rehabilitation, strengthening, prior to discharge home alone. [facility] Medical History (Updated 12/06/24 @ 07:[address] 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 Vitamin D deficiency GERD (gastroesophageal reflux disease) Heart failure with preserved ejection fraction Diabetic polyneuropathy Hypothyroidism Atherosclerotic cardiovascular disease COPD (chronic obstructive pulmonary disease) Chronic hypoxemic respiratory failure Pneumonia due to COVID-19 virus Hypertension PVCs (premature ventricular contractions) Anemia Obesity (BMI 30.0-34.9) Diabetes mellitus, type II HLD (hyperlipidemia) Home Medications ?Medication ?Instructions ?Recorded ?Last Taken ?Type famotidine 40 mg tablet 40 mg PO DAILY GERD 07/13/18 12/05/24 09:00 History glimepiride 4 mg tablet 4 mg PO DAILY DIABETES 06/23/22 Unknown History levothyroxine 25 mcg tablet 25 mcg PO DAILY THYROID 07/09/22 12/05/24 06:30 History ascorbate calcium (vitamin C) 500 500 mg PO DAILY SUPPLEMENT 03/09/24 03/23/24 History mg tablet gabapentin 300 mg capsule 300 mg PO BID NEUROPATHY 03/09/24 12/05/24 09:00 History polysaccharide iron complex 150 mg 150 mg PO DAILY SUPPLEMENT 03/09/24 12/05/24 09:00 History iron capsule (Ferrex) aspirin 81 mg tablet,delayed 81 mg PO BREAKFAST heart #30 tabs 03/23/24 12/05/24 09:00 Rx release nitroglycerin 0.4 mg sublingual 0.4 mg sublingual Q5M PRN 03/23/24 03/16/24 Rx tablet Cardiac/Chest Pain #30 tabs amlodipine 5 mg tablet 5 mg PO DAILY BP 30 days #30 tabs 04/07/24 12/05/24 09:00 Rx atorvastatin 40 mg tablet 40 mg PO QHS Cholesterol 30 days 04/07/24 12/04/24 Rx #30 tabs carvedilol 6.25 mg tablet 6.25 mg PO BID BP 30 days #60 tabs 04/07/24 12/05/24 16:30 Rx furosemide 40 mg tablet 40 mg PO BIDLX Edema 30 days #60 04/07/24 12/05/24 16:30 Rx tabs tamsulosin 0.4 mg capsule 0.4 mg PO DAILY@1730 Urinary 04/07/24 12/05/24 16:30 Rx Retention 30 days #30 caps ranolazine 500 mg tablet,extended 500 mg PO BID Heart #60 tabs 09/13/24 12/05/24 09:00 Rx release,12 hr clopidogrel 75 mg tablet 75 mg PO DAILY blood thinner 11/21/24 12/05/24 09:00 History trazodone 50 mg tablet 25 mg PO QHS sleep 11/21/24 12/04/24 History insulin degludec 100 unit/mL (3 15 unit (0.15 mL) subcut QHS 12/05/24 Unknown Rx mL) subcutaneous pen (Tresiba Diabetes #15 mL FlexTouch U-100 insulin) Allergy/AdvReac Type Severity Reaction Status Date / Time No Known Allergies Allergy Verified 12/02/24 10:16 Family History Brother Diabetes Mother Diabetes Sister Diabetes Father Heart disease Surgical History History of coronary artery stent placement Stented coronary artery (03/16/24) History of appendectomy Social History household members: none Smoking Status: Former smoker alcohol intake: never substance use type: does not use ROS Constitutional Constitutional: Reports weakness; Denies chills, fever(s) or weight gain ENT HEENT: Denies headache(s), nasal congestion or nasal discharge Cardiovascular Cardiovascular: Denies chest pain or palpitations Respiratory/Chest Respiratory/Chest: Denies cough, excessive phlegm production or shortness of breath with exertion Gastrointestinal Gastrointestinal: Denies abdominal pain, nausea or vomiting Genitourinary Genitourinary: Denies dysuria Musculoskeletal Musculoskeletal: Denies joint pain or joint swelling Integumentary Integumentary: Denies rash or wounds Neurologic Neurologic: Reports dizziness and other Details: Off balance. ; Denies focal weakness, numbness or tingling Psychiatric Psychiatric: Denies anxiety, auditory hallucinations, depression, homicidal ideation or suicidal ideation Vital Signs Vital Signs Vital Signs: 12/05/24 18:38 12/05/24 18:38 12/06/24 05:35 Temperature 98.4 F Temperature Source Temporal Pulse Rate 73 73 68 Pulse Rhythm Regular Pulse Strength Normal (2+) Respiratory Rate 18 18 Respiratory Effort Normal Respiratory Depth Normal Respiratory Pattern Normal Blood Pressure 120/62 126/61 H Blood Pressure Mean 81 82 Blood Pressure Source Monitor Monitor Blood Pressure Position Semi-Fowlers Blood Pressure Location Left Arm Pulse Ox 98 98 Oxygen Delivery Method Nasal Cannula Nasal Cannula Oxygen Flow Rate (L/min) 2 2 Weight Weight: 102.7 kg Body Mass Index (BMI) 36.5 Physical Exam Const alert General Appearance: cooperative HEENT normocephalic Eyes PERRL and EOMs intact bilaterally Neck supple, no JVD and no carotid bruits Resp normal respiratory effort and normal air movement Auscultation: wheezes throughout Cardio regular rate and regular rhythm GI normal to inspection, nondistended, normoactive bowel sounds, non-tender and non-distended Extremity normal capillary refill General Extremity: Negative for edema Skin no rashes or lesions noted General Skin Exam: no breakdown Psych affect normal Appearance: appropriate Results Lab / Micro Data 12/06/24 05:21 12/06/24 05:21 Labs: Laboratory Results - last 24 hr 12/05/24 20:57: POC Glucose 150 H 12/06/24 05:21: WBC 6.3, RBC 2.91 L, Hgb 9.1 L, Hct 27.7 L, MCV 95.2 H, MCH 31.3, MCHC 32.9, RDW Std Deviation 47.6 H, RDW Coeff of Elmer 13.6, Plt Count 173, MPV 10.3, Immature Gran % (Auto) 0.500, Neut % (Auto) 59.2, Lymph % (Auto) 25.1, [place] % (Auto) 9.9, Eos % (Auto) 4.8, Baso % (Auto) 0.5, Absolute Neuts (auto) 3.7, Absolute Lymphs (auto) 1.57, Nucleated RBC % 0, Sodium 139, Potassium 4.1, Chloride 101, Carbon Dioxide 27.6, Anion Gap 11, BUN 38 H, Creatinine 2.19 H, Estim Creat Clear Calc 28.18 L, Est GFR (MDRD) Non-Af 29 L, BUN/Creatinine Ratio 17.5, Glucose 111 H, Calcium 8.7 12/06/24 05:56: POC Glucose 114 H Assessment & Plan Assessment/Plan (1) Debility: (2) Encephalopathy: (3) Hypoglycemia: (4) Type 2 diabetes mellitus with hyperglycemia: (5) Chronic heart failure with preserved ejection fraction (HFpEF): (6) HLD (hyperlipidemia): QUALIFIERS: Hyperlipidemia type: pure hypercholesterolemia Qualified Code(s): E78.00 - Pure hypercholesterolemia, unspecified; E78.0 - Pure hypercholesterolemia (7) Hypothyroidism: (8) Diabetic polyneuropathy: (9) Coronary artery disease: (10) COPD (chronic obstructive pulmonary disease): QUALIFIERS: COPD type: emphysema Emphysema type: centrilobular Qualified Code(s): J43.2 - Centrilobular emphysema (11) Chronic hypoxemic respiratory failure: (12) BPH (benign prostatic hyperplasia): (13) CKD (chronic kidney disease), stage IV: (14) Morbid obesity: PLAN: Plan 84 year old male with below past medical history hospitalized for encephalopathy 2/2 hypoglycemia, admitted to TCU with debility, here for rehabilitation, strengthening, prior to discharge home alone. Debility - PT/OT. Pain - Tylenol 1000mg q6 prn pain (1-10). Bowel - senna/colace 1 tablet bid, Magnesium citrate 300mL daily prn Adult immunization - Administer pneumonia vaccine, covid vaccine, flu vaccine as appropriate. DVT prophylaxis - Hold, on DAPT, and anemic. COPD - Fluticasone/Salmeterol 232-14 1 puff bid, Incruse 1 puff daily, Albuterol 2.5mg neb q2h prn, oxygen chronic. Hypertension - Coreg 6.25mg bidcm, Amlodipine 5mg daily. Iron deficiency anemia - Ferrex 150mg daily, Vitamin C 500mg daily. Coronary artery disease s/p stent - Coreg 6.25mg bidcm, Ranexa 500mg bid, Plavix 75mg daily, Aspirin 81mg daily, NTG 0.4mg sl q5m prn chest pain. Hyperlipidemia - Atorvastatin 40mg qhs. Chronic HFpEF - Coreg 6.25mg bidcm, Furosemide 40mg bidlx. Diabetic polyneuropathy - Gabpentin 300mg bid. Diabetes Mellitus II - goal A1c < 8.5, A1c 6.9, Glargine 15 units qhs. Hypothyroidism - Levothyroxine 25mcg daily. GERD - Pantoprazole 40mg daily. BPH - Tamsulosin 0.4mg daily. The following psychotropic medication was present on admission: Trazodone 25mg qhs. Psychotropic medication therapy is indicated for a diagnosis of: Insomnia. Based on my clinical evaluation, continuation of the medication is necessary at this time. Gradual dose reduction plan (select one): ____ GDR will be attempted. Will monitor patient symptoms and behaviors in response to GDR. __x__ GRD contraindicated. Reason contraindicated: stable chronic retirement use.
[2024-12-06] MEDS: Aspirin E.C. 81 MG Tablet PO (09:17)
[2024-12-06] MEDS: Umeclidinium Bromide Inhaler 1 PUFF INHALATION (09:18)
[2024-12-06] MEDS: Senna/Docusate Sodium 1 Tablet PO ×2 (09:21→22:23)
[2024-12-06] MEDS: Fluticasone/Salmeterol 232-14 Inhaler 1 PUFF INHALATION ×2 (09:26→22:20)
[2024-12-06 09:30] VITALS: BP 121/60; PULSE 80; RESP 18; TEMP 36.3; O2SAT 98
--- NOTE | 2024-12-06 10:23 | PHA.CONS_ITS ---
Documented by User: Nayely Tanner 12/06/24 11:23 TCU RX Drug Regimen Review Subjective/Objective Subjective/Objective Subjective: TCU Admission. 84 YOM presented to the ER with confusion. Hospitalized for encephalopathy 2/2 hypoglycemia. Admitted to TCU with debility for strengthening and rehabilitation. Objective: Allergies No Known Allergies Allergy (Verified 12/02/24 10:16) Current Medications Generic Name Dose Route Start Last Admin Trade Name Freq PRN Reason Stop Dose Admin Acetaminophen 1,000 mg 12/06/24 07:40 Acetaminophen 500 Mg Tablet PO Q6H PRN PRN Pain Score 1-10 Albuterol Sulfate 2.5 mg 12/06/24 07:47 Albuterol 2.5 Mg/3 Ml Vial.Neb. INHALATION Q2H PRN PRN DYSPNEA/WHEEZING/SOB Amlodipine Besylate 5 mg 12/06/24 10:00 12/06/24 09:20 Amlodipine 5 Mg Tablet PO 5 mg DAILY MARJORIE Administration Protocol Ascorbic Acid 500 mg 12/06/24 10:00 12/06/24 09:21 Ascorbic Acid 500 Mg Tablet PO 500 mg DAILY MARJORIE Administration Aspirin 81 mg 12/06/24 08:00 12/06/24 09:17 Aspirin E.C. 81 Mg Tablet PO 81 mg BREAKFAST MARJORIE Administration Atorvastatin Calcium 40 mg 12/05/24 22:00 12/05/24 22:29 Atorvastatin Calcium 40 Mg Tablet PO 40 mg QHS MARJORIE Administration Carvedilol 6.25 mg 12/06/24 08:00 12/06/24 09:17 Carvedilol 6.25 Mg Tablet PO 6.25 mg BIDCM MARJORIE Administration Protocol Clopidogrel Bisulfate 75 mg 12/06/24 10:00 12/06/24 09:21 Clopidogrel Bisulfate 75 Mg Tablet PO 75 mg DAILY MARJORIE Administration Furosemide 40 mg 12/06/24 06:00 12/06/24 05:36 Furosemide 40 Mg Tablet PO 40 mg BIDLX MARJORIE Administration Protocol Gabapentin 300 mg 12/05/24 22:00 12/06/24 09:26 Gabapentin 300 Mg Capsule PO 300 mg BID MARJORIE Administration Sodium Chloride 250 mls @ 15 mls/hr 12/05/24 22:31 IV .[id number] PRN Saline Flush Insulin Glargine 15 unit 12/05/24 22:00 12/05/24 22:28 Insulin Glargine-Yfgn 100 Unit/Ml Pen SC 15 unit QHS [facility] Administration Levothyroxine Sodium 25 mcg 12/06/24 06:00 12/06/24 05:36 Levothyroxine 25 Mcg Tablet PO 25 mcg DAILY@0600 [facility] Administration Magnesium Citrate 300 ml 12/06/24 07:56 Magnesium Citrate 300 Ml PO DAILY PRN Constipation Nitroglycerin 0.4 mg 12/05/24 19:28 Nitroglycerin (Inpatient Use) 0.4 Mg Tab.Subl SL Q5M PRN CARDIAC/CHEST PAIN Pantoprazole Sodium 40 mg 12/06/24 10:00 12/06/24 09:21 Pantoprazole Sodium 40 Mg Tablet PO 40 mg DAILY [facility] Administration Polysaccharide Iron Complex 150 mg 12/06/24 10:00 Iron Polysaccharide Complex 150 Mg Capsule PO DAILY [facility] Ranolazine 500 mg 12/05/24 22:00 12/06/24 09:21 Ranolazine 500 Mg Tablet PO 500 mg BID [facility] Administration Fluticasone/Salmeterol 1 puff 12/06/24 10:00 12/06/24 09:26 Fluticasone/Salmeterol 232-14 Inhaler INHALATION 1 puff Q12 [facility] Administration Senna/Docusate Sodium 1 tablet 12/06/24 10:00 12/06/24 09:21 Senna/Docusate Sodium 1 Tablet PO 1 tablet BID [facility] Administration Sodium Chloride 10 - 40 ml 12/05/24 22:31 12/05/24 22:20 0.9% Saline Lock 10 Ml Syringe IV 10 ml UD PRN Administration SALINE FLUSH Tamsulosin HCl 0.4 mg 12/06/24 17:30 Tamsulosin Hcl 0.4 Mg Capsule PO DAILY@1730 [facility] Trazodone HCl 25 mg 12/05/24 22:00 12/05/24 22:27 Trazodone 50 Mg Tablet PO 25 mg QHS [facility] Administration Tuberculin PPD 0.1 ml 12/13/24 10:00 Tuberculin,Purif.Prot.Deriv. 50 Tu/Ml Vial ID 12/13/24 10:01 X1 ONE Umeclidinium [place] 1 puff 12/06/24 10:00 12/06/24 09:18 Umeclidinium [place] Inhaler INHALATION 1 inh DAILY [facility] Administration Problem List Morbid obesity (Acute) CKD (chronic kidney disease), stage IV (Chronic) BPH (benign prostatic hyperplasia) (Acute) Coronary artery disease (Acute) Chronic heart failure with preserved ejection fraction (HFpEF) (Acute) Type 2 diabetes mellitus with hyperglycemia (Acute) Encephalopathy (Acute) Hypoglycemia (Acute) Debility (Acute) Diabetic polyneuropathy (Acute) Hypothyroidism (Acute) COPD (chronic obstructive pulmonary disease) (Chronic) Chronic hypoxemic respiratory failure (Chronic) HLD (hyperlipidemia) (Chronic) Vital Signs Temp Pulse Resp BP Pulse Ox O2 Del Method O2 Flow Rate 97.4 F L 80 18 121/60 H 98 Room Air 2 12/06/24 09:30 12/06/24 09:30 12/06/24 09:30 12/06/24 09:30 12/06/24 09:30 12/06/24 09:30 12/06/24 08:18 Oxygen Flow Rate (L/min) 2 Oxygen Delivery Method Room Air Weight: 102.7 kg Body Mass Index (BMI) 36.5 Sodium 139 mmol/L (133-145) 12/06/24 05:21 Potassium 4.1 mmol/L (3.3-5.1) 12/06/24 05:21 Chloride 101 mmol/L (98-108) 12/06/24 05:21 Carbon Dioxide 27.6 mmol/L (21.0-32.0) 12/06/24 05:21 Anion Gap 11 (5-15) 12/06/24 05:21 BUN 38 mg/dL (4-19) H 12/06/24 05:21 Creatinine 2.19 mg/dL (0.70-1.20) H 12/06/24 05:21 Est GFR (MDRD) Non-Af 29 (>60) L 12/06/24 05:21 BUN/Creatinine Ratio 17.5 RATIO (10-20) 12/06/24 05:21 Glucose 111 mg/dL (70-99) H 12/06/24 05:21 Assessment/Plan: 1. Pain: Tylenol 1000mg Q6 PO PRN for pain (1-10). Resident has not needed any PRN doses. Please continue to monitor pain and PRN usage. 2. Bowel: Docusate/senna 50mg/8.6mg 1T PO BID and magnesium citrate 300mL PO PRN constipation. Please continue to monitor for constipation and PRN usage. Last documented bowel movement was 12/05/24. 3. Coronary Artery Disease s/p stent/HFpEF/Hypertension: aspirin 81mg PO daily at breakfast, clopidogrel 75mg PO daily, amlodipine 5mg PO daily, carvedilol 6.25mg PO BID, furosemide 40mg PO BIDLX, ranolazine 500mg PO BID, Nitroglycerin 0.4mg SL Q5M PRN chest pain. Resident has not needed any PRN nitroglycerin. Please continue to monitor for S/S of bleeding/stroke, hemoglobin (last 9.1g/dL), chest pain/tightness, edema, weight gain, renal function, blood pressure (last 120/62 and 126/61mmHg), potassium (last 4.1mmol/L) and heart rate (68-73). 4. Type II Diabetes Mellitus: insulin glargine 15units SC QHS. Please continue to monitor for S/S of hyper/hypoglycemia, hemoglobin A1c (last 6.9% 12/02/24) and blood sugar (last 114mg/dL). 5. Iron Deficiency Anemia: Vitamin C 500mg PO daily and Ferrex 150mg PO daily. Please continue to monitor hemoglobin (last 9.1g/dL), iron studies (03/17/24), constipation and dark stools. 6. Hypothyroidism: Levothyroxine 25mcg PO daily. Please continue to monitor TSH (last 12/03/24) and S/S of hypo/hyperthyroidism.? 7. GERD: pantoprazole 40mg PO daily. Please continue to monitor for S/S of GERD and diarrhea (BEERs). 8. Hyperlipidemia: atorvastatin 40mg PO QHS. Please continue to monitor lipid levels (last 03/16/24), LFTs (last 12/05/24 WNL), and for muscle pain. 9. BPH: tamsulosin 0.4mg PO daily. Please continue to monitor for incontinence, BP, and dizziness/lightheadedness.? 10. Neuropathic pain: gabapentin 300mg PO BID. Please continue to monitor for confusion, renal function, falls/fractures (BEERs medication). 11. COPD: fluticasone/salmeterol 232/14mcg 1 puff BID, Incruse ellipta 1puff daily, and albuterol 2/5mg nebulized solution Q2H PRN dyspnea/wheezing/SOB. No PRN doses have been given. Please continue to monitor for SOB, wheezing, dyspnea, HR, thrush, anxiety. Please rinse mouth with water and spit following fluticasone administration to prevent thrush. Assessment/Plan for indications treated with psychotropic medications: 1. Insomnia: trazodone 25mg PO QHS. Monitor for drowsiness, dizziness or confusion, dry mouth, constipation, symptoms of serotonin syndrome (including agitation, confusion, hyperreflexia, rigidity/myoclonus, tremor, tachycardia, tachypnea), suicidal thoughts or behaviors (Boxed Warning). Monitor HR (can cause bradycardia or tachycardia). HR range since admission = 68-73. Monitor for orthostatic hypotension, including postural dizziness, syncope or falls. Check orthostatic vital signs if suspicion of orthostasis. Monitor for efficacy including resident symptoms, behaviors and indications of distress. Monitor for tolerability including mental status, cognition, excessive sleepiness, withdrawal or decreased participation in activities and decline in physical functioning. Maximize use of nonpharmacologic/behavioral interventions to facilitate dose reduction or discontinuation as appropriate. Please evaluate the appropriateness of GDR unless contraindicated. If appropriate, GDR should be attempted in 2 separate quarters within the first year of use or admission to TCU. If GDR attempted, monitor resident symptoms/behaviors. Medical chart and medication regimen reviewed. The following medication irregularities or issues were identified: None Date Date of Note: 12/06/24 Documented by User: Dr. Kain Bhakta MD 12/06/24 12:23 TCU RX Drug Regimen Review Provider Comments Provider responsibility Provider Comments to Recommendations by Pharmacy Agree
[2024-12-06] MEDS: Tuberculin,Purif.prot.deriv. 50 TU/ML Vial 0.1 ML ID (10:54)
[2024-12-06 13:19] VITALS: BP 124/61; PULSE 82
[2024-12-06 14:13] VITALS: BMI 36.3
[2024-12-06 14:51] VITALS: O2SAT 91
--- NOTE | 2024-12-06 16:10 | CASEMGMT ---
Social Work SW met with patient to complete initial assessment. Introduced self and role. Verified contacts. Discussed code status and pt wishes to be DNR-CCA, no intubation. Nursing notified. Educated to [facility] insurance with NRD 12/12 and continued stay is not guaranteed with each review; required to provide a 3-day notice for DC. Pt's goal is to return home at [facility]. SW will continue to follow for DC planning. Kelli Vanegas GROCERY SUPERVISOR MOLD SPRAYER
[2024-12-06 17:09] VITALS: BP 134/58; PULSE 83
[2024-12-06 22:00] VITALS: PULSE 82; RESP 17
[2024-12-06] MEDS: Insulin Glargine-YFGN 100 UNIT/ML Pen 15 UNIT SC (22:20)
[2024-12-07 06:25] VITALS: BP 138/72; PULSE 75; RESP 17; O2SAT 97
[2024-12-07 07:22] VITALS: BP 127/53; PULSE 72; RESP 18; TEMP 36.3; O2SAT 98
[2024-12-07] MEDS: Fluticasone/Salmeterol 232-14 Inhaler 1 PUFF INHALATION ×2 (07:23→21:58)
[2024-12-07] MEDS: Umeclidinium Bromide Inhaler 1 PUFF INHALATION (07:23)
[2024-12-07] MEDS: Senna/Docusate Sodium 1 Tablet PO ×2 (07:24→21:59)
[2024-12-07] MEDS: Aspirin E.C. 81 MG Tablet PO (07:24)
--- NOTE | 2024-12-07 09:22 | NURSING ---
Bone Worker Note, Activity Asset: Complete Kris prefers to be called Abilio. Abilio is independent in his choice of daily activities. He would like the news paper daily, enjoys reading, tv visiting w/others and welcomes the excavating contractor and therapy dog when available. Staff will remind him of weekly activities and respect his right to say no.
[2024-12-07] MEDS: Insulin Glargine-YFGN 100 UNIT/ML Pen 15 UNIT SC (21:58)
[2024-12-08 05:12] VITALS: BP 121/60; PULSE 70; O2SAT 97
[2024-12-08] MEDS: Aspirin E.C. 81 MG Tablet PO (10:15)
[2024-12-08] MEDS: Senna/Docusate Sodium 1 Tablet PO ×2 (10:15→21:48)
[2024-12-08] MEDS: Umeclidinium Bromide Inhaler 1 PUFF INHALATION (10:15)
[2024-12-08] MEDS: Fluticasone/Salmeterol 232-14 Inhaler 1 PUFF INHALATION ×2 (10:16→21:47)
[2024-12-08] MEDS: Magnesium Citrate 300 ML PO (14:31)
[2024-12-08 16:38] VITALS: BP 124/59; PULSE 80; RESP 18; O2SAT 97
[2024-12-08 19:50] VITALS: PULSE 76; RESP 16
--- NOTE | 2024-12-08 20:45 | NURSING ---
Written communication left for Dr. Bhakta regarding apparent small cluster of blisters on LLE for review in AM. Pt denies discomfort/pain to area. No redness or drainage noted on assessment to area.
[2024-12-08] MEDS: Insulin Glargine-YFGN 100 UNIT/ML Pen 15 UNIT SC (21:47)
[2024-12-08 21:58] VITALS: BMI 36.6
[2024-12-08 21:59] VITALS: BMI 36.6
[2024-12-09 04:42] VITALS: BMI 36.6
--- NOTE | 2024-12-09 04:55 | NURSING ---
+2 edema, no heat, no drainage, esa wraps applied per order, educated on importance of elevating BLE, verbalizes understanding. Denies pain. Denies requests. Daily weight obtained per order. Call light in reach.
[2024-12-09 05:07] VITALS: BP 111/57; PULSE 67; O2SAT 95
[2024-12-09 05:13] VITALS: PULSE 67; RESP 16; O2SAT 92
[2024-12-09] MEDS: Aspirin E.C. 81 MG Tablet PO (08:15)
[2024-12-09] MEDS: Fluticasone/Salmeterol 232-14 Inhaler 1 PUFF INHALATION ×2 (08:15→21:15)
[2024-12-09] MEDS: Umeclidinium Bromide Inhaler 1 PUFF INHALATION (08:15)
[2024-12-09] MEDS: Senna/Docusate Sodium 1 Tablet PO ×2 (08:16→21:15)
[2024-12-09 10:00] VITALS: BP 163/78; PULSE 76; RESP 18; TEMP 36.6; O2SAT 95
[2024-12-09 10:30] VITALS: O2SAT 95
[2024-12-09 12:36] VITALS: BMI 36.6
--- NOTE | 2024-12-09 13:25 | MDS.RN ---
Pain assessment for MDS complete.
[2024-12-09] MEDS: Insulin Glargine-YFGN 100 UNIT/ML Pen 15 UNIT SC (21:14)
[2024-12-10 04:09] VITALS: BMI 36.3
[2024-12-10 06:00] VITALS: BP 134/60; PULSE 68
[2024-12-10 08:01] VITALS: O2SAT 94
[2024-12-10] MEDS: Fluticasone/Salmeterol 232-14 Inhaler 1 PUFF INHALATION ×2 (09:54→22:39)
[2024-12-10] MEDS: Senna/Docusate Sodium 1 Tablet PO ×2 (09:54→22:39)
[2024-12-10] MEDS: Umeclidinium Bromide Inhaler 1 PUFF INHALATION (09:55)
[2024-12-10] MEDS: Aspirin E.C. 81 MG Tablet PO (09:56)
[2024-12-10 16:00] VITALS: BP 126/53; PULSE 66; RESP 18; TEMP 36.4; O2SAT 97
[2024-12-10 21:40] VITALS: RESP 17; O2SAT 93
[2024-12-10] MEDS: Insulin Glargine-YFGN 100 UNIT/ML Pen 15 UNIT SC (22:41)
[2024-12-11 06:00] VITALS: BMI 36.5
[2024-12-11 06:20] VITALS: BP 146/66; PULSE 67; RESP 18
[2024-12-11 06:29] VITALS: RESP 17; O2SAT 97
[2024-12-11 07:06] VITALS: O2SAT 95
[2024-12-11 09:51] VITALS: BP 147/65; PULSE 73; RESP 18; TEMP 36.6; O2SAT 95
[2024-12-11] MEDS: Umeclidinium Bromide Inhaler 1 PUFF INHALATION (09:54)
[2024-12-11] MEDS: Aspirin E.C. 81 MG Tablet PO (09:54)
[2024-12-11] MEDS: Fluticasone/Salmeterol 232-14 Inhaler 1 PUFF INHALATION ×2 (09:54→21:23)
[2024-12-11] MEDS: Senna/Docusate Sodium 1 Tablet PO ×2 (09:56→21:23)
[2024-12-11] MEDS: Insulin Glargine-YFGN 100 UNIT/ML Pen 15 UNIT SC (21:25)
[2024-12-12 05:00] VITALS: BP 177/76; PULSE 72
[2024-12-12 05:12] VITALS: BMI 36.4
--- NOTE | 2024-12-12 08:25 | NURSING ---
[employer] Consultant Note; MDS for 12/12/2024 complete
[2024-12-12] MEDS: Aspirin E.C. 81 MG Tablet PO (08:39)
[2024-12-12] MEDS: Umeclidinium Bromide Inhaler 1 PUFF INHALATION (08:40)
[2024-12-12] MEDS: Senna/Docusate Sodium 1 Tablet PO ×2 (08:40→20:24)
[2024-12-12] MEDS: Fluticasone/Salmeterol 232-14 Inhaler 1 PUFF INHALATION ×2 (08:40→20:20)
--- NOTE | 2024-12-12 09:19 | NURSING ---
Offered covid vaccine, VIS provided. Resident declines.
--- NOTE | 2024-12-12 12:17 | CASEMGMT ---
Social Work SW completed BIMS () and PHQ-2 () for MDS assessment. Kelli Vanegas EMERGENCY REGISTRAR GRAPHIC ART DESIGNER
[2024-12-12 14:07] VITALS: BP 117/56; PULSE 67; RESP 18; TEMP 36.2; O2SAT 98
[2024-12-12] MEDS: Magnesium Citrate 300 ML PO (15:01)
--- NOTE | 2024-12-12 15:51 | NURSING ---
Glargine and Humalog increased this shift. Patient made aware.
[2024-12-12 20:15] VITALS: BP 131/61; PULSE 70; O2SAT 98
[2024-12-12] MEDS: Insulin Glargine-YFGN 100 UNIT/ML Pen 20 UNIT SC (20:21)
[2024-12-12 22:00] VITALS: PULSE 70; RESP 16; O2SAT 98
[2024-12-13 05:30] VITALS: BP 124/63; PULSE 71; O2SAT 96
[2024-12-13 05:42] LABS: Hematocrit 29.1 % (40-54); Hemoglobin 9.4 g/dL (13.0-16.5); Immature Granulocytes Count 0.040 X10^3/uL (0.0-0.0); Mean Corp Hgb Conc 32.3 g/dL (32-36); Mean Corpuscular Volume 94.8 fL (80-94); Mean Platelet Vol. 10.4 fl (6.2-12.0); NRBC Flagged by Analyzer 0 % (0-5); Platelet Count 163 K/mm3 (150-450); RBC Distribution Width CV 13.7 % (11.6-14.6); RBC Distribution Width SD 47.4 fl (35.1-43.9); Red Blood Count 3.07 M/mm3 (4.6-6.2); White Blood Count 7.3 K/mm3 (4.4-11.0)
[2024-12-13 06:00] VITALS: BMI 37.8
[2024-12-13 06:10] LABS: Anion Gap 9 (5-15); BUN 38 mg/dL (4-19); BUN/Creat Ratio 18.6 RATIO (10-20); Calcium,Total 8.9 mg/dL (7.6-11.0); Carbon Dioxide 29.1 mmol/L (21.0-32.0); Chloride 99 mmol/L (98-108); Estimated Creatinine Clearance 29.93 ml/min (50-250); Glucose 210 mg/dL (70-99); Potassium 5.0 mmol/L (3.3-5.1)
[2024-12-13 06:39] VITALS: PULSE 71; RESP 16; O2SAT 96
[2024-12-13 07:30] VITALS: O2SAT 93
[2024-12-13 07:49] VITALS: BP 130/66; PULSE 73; RESP 18; TEMP 37.1; O2SAT 93
[2024-12-13] MEDS: Aspirin E.C. 81 MG Tablet PO (07:52)
[2024-12-13] MEDS: Senna/Docusate Sodium 1 Tablet PO (07:53)
[2024-12-13] MEDS: Umeclidinium Bromide Inhaler 1 PUFF INHALATION (07:53)
[2024-12-13] MEDS: Fluticasone/Salmeterol 232-14 Inhaler 1 PUFF INHALATION ×2 (07:53→21:51)
[2024-12-13 10:42] VITALS: BMI 36.6
[2024-12-13] MEDS: Tuberculin,Purif.prot.deriv. 50 TU/ML Vial 0.1 ML ID (11:42)
--- NOTE | 2024-12-13 15:14 | CHAPLAIN ---
Type of Pastoral Visit _x__ Initial Visit ___ Follow-up Visit ___ On-call Visit ___ General Patient Visit ___ Spiritual Assessment ___ Family Conference ___ Bereavement ___ Rapid Response ___ Code Blue ___ Other (describe below) Pastoral Care Referral From _x__ Patient ___ Family ___ Nurse ___ Physician ___ Employee Service Officer ___ Surg Rn ___ Other (describe below) Sacrament/Intervention _x__ Active listening ___ Anointing ___ Yazdanism ___ Bereavement ___ Communion _x__ Mary exploration ___ _x__ Life review _x__ Prayer ___ Reconciliation ___ Sacrament of Sick ___ Supportive presence ___ Wedding ___ Other (describe below) Pastoral Comments 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
[2024-12-13] MEDS: Insulin Glargine-YFGN 100 UNIT/ML Pen 20 UNIT SC (21:51)
[2024-12-14 05:02] VITALS: BMI 37.7
[2024-12-14 05:40] VITALS: BP 127/54; PULSE 74; O2SAT 97
[2024-12-14 08:03] VITALS: BP 139/98; PULSE 82; RESP 18; TEMP 36.9; O2SAT 97
[2024-12-14] MEDS: Aspirin E.C. 81 MG Tablet PO (08:06)
[2024-12-14] MEDS: Fluticasone/Salmeterol 232-14 Inhaler 1 PUFF INHALATION ×2 (08:06→21:31)
[2024-12-14] MEDS: Umeclidinium Bromide Inhaler 1 PUFF INHALATION (08:07)
[2024-12-14] MEDS: Senna/Docusate Sodium 1 Tablet PO ×2 (08:08→21:33)
[2024-12-14 10:00] VITALS: PULSE 82; RESP 17; O2SAT 98
--- NOTE | 2024-12-14 10:57 | CASEMGMT ---
Social Work IDT met with patient and dtr for care plan meeting. Discussed patient's progress in PT/OT/SN/RDN. Educated to [facility] insurance and outcome is still pending from 12/12 and continued stay is not guaranteed with each review. Provided pt/family with written communication of insurance process and copay coverage during stay. IDT expressed concerns with pt returning home alone as pt has impaired safety awareness, especially with O2 tubing. Dtr inquired about ST involvement. SW offered to consult as dtr expressed concerns with memory. Pt also voiced he wants PT to work on balance as he does not have good balance. Therapy confirmed. RN explained fluid in legs and recommended elevating legs. Pt's legs were not elevated in recline and offered to elevate legs and pt denied. SW discussed DC plans further with pt and dtr. Explained CYBER INTEL PLANNER for assistance in the home or [place]. Pt is agreeable to [place], but is unable to afford it. SW discussed SNF initially, apply for Medicaid, then apply for [place] program to potentially move into [place]. Pt and dtr discussed and agreeable to SNF at [place]. SW discussed finances and pt appears eligible for Medicaid. Pt does have two life insurance polices with the goal to pay for expenses. SW provided instructions to dtr to contact policy for information and to get irrevocable trust. Dtr to complete and notify this worker. SW to refer to [facility] for Medicaid application. SW provided list of SNFs in preferred geographical area, [facility], and [facility], that are INN with pt?s insurance, including quality and resource data via [employer]. Pt/dtr to review and notify this worker of preferences. SW will continue to follow for DC planning. Kelli Vanegas MSW CELLULAR EQUIPMENT REPAIRER
[2024-12-14 16:00] VITALS: BP 147/98; PULSE 80
[2024-12-14] MEDS: Insulin Glargine-YFGN 100 UNIT/ML Pen 20 UNIT SC (21:31)
[2024-12-15 06:00] VITALS: BMI 36.7
[2024-12-15 06:34] VITALS: BP 130/62; PULSE 79; O2SAT 94
[2024-12-15 08:02] VITALS: BP 144/64; PULSE 71; RESP 18; TEMP 36.4; O2SAT 95
[2024-12-15] MEDS: Aspirin E.C. 81 MG Tablet PO (08:03)
[2024-12-15] MEDS: Fluticasone/Salmeterol 232-14 Inhaler 1 PUFF INHALATION ×2 (08:04→21:08)
[2024-12-15] MEDS: Senna/Docusate Sodium 1 Tablet PO ×2 (08:05→21:07)
[2024-12-15 10:00] VITALS: PULSE 65; RESP 16; O2SAT 98
[2024-12-15] MEDS: Umeclidinium Bromide Inhaler 1 PUFF INHALATION (10:33)
--- NOTE | 2024-12-15 12:42 | MDS.RN ---
Information for the MDS was obtained from review of the clinical record, interview of resident, staff, and direct observation of resident?s care.
[2024-12-15 16:00] VITALS: BP 122/69; PULSE 65; O2SAT 98
[2024-12-15] MEDS: Insulin Glargine-YFGN 100 UNIT/ML Pen 20 UNIT SC (21:08)
[2024-12-16 04:39] VITALS: BMI 37.4
[2024-12-16] MEDS: Umeclidinium Bromide Inhaler 1 PUFF INHALATION (08:26)
[2024-12-16] MEDS: Fluticasone/Salmeterol 232-14 Inhaler 1 PUFF INHALATION ×2 (08:26→22:03)
[2024-12-16] MEDS: Aspirin E.C. 81 MG Tablet PO (08:26)
[2024-12-16] MEDS: Senna/Docusate Sodium 1 Tablet PO ×2 (08:27→22:04)
[2024-12-16 10:00] VITALS: BP 133/61; PULSE 70; RESP 18; TEMP 36.4; O2SAT 98
--- NOTE | 2024-12-16 17:43 | NURSING ---
Glargine increased from 20u-25u. Humalog increased from 7u-8u. Patient aware.
[2024-12-16] MEDS: Insulin Glargine-YFGN 100 UNIT/ML Pen 25 UNIT SC (22:03)
[2024-12-17 04:10] VITALS: BMI 37.5
[2024-12-17 05:53] VITALS: BP 123/62; PULSE 75
[2024-12-17 08:28] VITALS: BP 135/63; PULSE 76; RESP 17; TEMP 36.6; O2SAT 96
[2024-12-17] MEDS: Aspirin E.C. 81 MG Tablet PO (08:32)
[2024-12-17] MEDS: Fluticasone/Salmeterol 232-14 Inhaler 1 PUFF INHALATION ×2 (08:33→21:59)
[2024-12-17] MEDS: Umeclidinium Bromide Inhaler 1 PUFF INHALATION (08:33)
[2024-12-17] MEDS: Senna/Docusate Sodium 1 Tablet PO ×2 (08:34→21:56)
[2024-12-17 12:40] VITALS: O2SAT 98
[2024-12-17 14:54] VITALS: BP 114/66; PULSE 70
[2024-12-17 17:39] VITALS: BP 131/66; PULSE 64
[2024-12-17] MEDS: Insulin Glargine-YFGN 100 UNIT/ML Pen 25 UNIT SC (21:55)
[2024-12-18 05:47] VITALS: BP 111/61; PULSE 65
[2024-12-18 05:56] VITALS: BMI 36.8
[2024-12-18 08:43] VITALS: BP 123/52; PULSE 72; RESP 16; TEMP 37.2; O2SAT 98
[2024-12-18] MEDS: Umeclidinium Bromide Inhaler 1 PUFF INHALATION (08:47)
[2024-12-18] MEDS: Fluticasone/Salmeterol 232-14 Inhaler 1 PUFF INHALATION ×2 (08:47→22:03)
[2024-12-18] MEDS: Aspirin E.C. 81 MG Tablet PO (08:47)
[2024-12-18] MEDS: Senna/Docusate Sodium 1 Tablet PO ×2 (08:48→22:01)
[2024-12-18 14:33] VITALS: BP 124/59; PULSE 82
[2024-12-18 18:23] VITALS: BP 133/64; PULSE 73
[2024-12-18] MEDS: Insulin Glargine-YFGN 100 UNIT/ML Pen 30 UNIT SC (22:03)
[2024-12-19 05:44] VITALS: BMI 36.8
[2024-12-19 08:04] VITALS: O2SAT 98
[2024-12-19] MEDS: Umeclidinium Bromide Inhaler 1 PUFF INHALATION (08:16)
[2024-12-19] MEDS: Fluticasone/Salmeterol 232-14 Inhaler 1 PUFF INHALATION ×2 (08:16→21:42)
[2024-12-19] MEDS: Aspirin E.C. 81 MG Tablet PO (08:17)
[2024-12-19] MEDS: Senna/Docusate Sodium 1 Tablet PO ×2 (08:18→21:46)
--- NOTE | 2024-12-19 09:37 | CASEMGMT ---
Social Work Pt's daughter called [employer] regarding HHC. [facility] called Kelli as pt is in TCU, she will follow up w/daughter. OLEGARIO Szymanski
--- NOTE | 2024-12-19 10:31 | NURSING ---
Dr. Bhakta's office contacted for PN shot record and they only had a couple records of pneumococcal vaccines but did not know which ones he had. Patient denies having had one from anywhere else and states he would rather follow up with Dr. Bhakta's office to get any more pneumonia shots.
[2024-12-19 10:38] VITALS: O2SAT 97
[2024-12-19 15:21] VITALS: BP 140/61; PULSE 67; RESP 20; TEMP 36.2; O2SAT 98
--- NOTE | 2024-12-19 15:49 | CASEMGMT ---
Addendum entered by Kelli Vanegas 12/20/24 08:52: SW sent referrals to SNFs via [facility] Original Note: Social Work SW received update from Mei at [facility], that the LILIANA kya was submitted, though, MIGUEL has two different legal names listed, which may delay the assignment of a pending number. Mei is working with the pt's dtr to gather needed documents and get life insurance information. - SW phoned dtr to update and notify the insurance outcome is still pending. Inquired about SNF choices. Dtr stated to see pt for list in his room. SW agreed. SW to notify dtr once outcome of insurance is provided. - SW spoke with pt and he provided SNF choices - [facility] and [facility]. SW to place referrals. Will continue to follow. Kelli Vanegas TELESALES AGENT INSTRUCTIONAL ASSISTANT
[2024-12-19 19:45] VITALS: O2SAT 98
[2024-12-19] MEDS: Insulin Glargine-YFGN 100 UNIT/ML Pen 30 UNIT SC (21:50)
--- NOTE | 2024-12-19 23:22 | NURSING ---
Patient refused SCD's at [facility], patient reports they make his legs itch and are uncomfortable, verbal education provided on reason for SCD's, ineffective.
[2024-12-20 05:13] VITALS: BMI 36.9
[2024-12-20 05:54] VITALS: BP 139/62; PULSE 63
[2024-12-20 06:17] LABS: Hematocrit 28.3 % (40-54); Hemoglobin 9.2 g/dL (13.0-16.5); Immature Granulocytes Count 0.040 X10^3/uL (0.0-0.0); Mean Corp Hgb Conc 32.5 g/dL (32-36); Mean Corpuscular Volume 95.0 fL (80-94); Mean Platelet Vol. 10.6 fl (6.2-12.0); NRBC Flagged by Analyzer 0 % (0-5); Platelet Count 165 K/mm3 (150-450); RBC Distribution Width CV 13.4 % (11.6-14.6); RBC Distribution Width SD 46.4 fl (35.1-43.9); Red Blood Count 2.98 M/mm3 (4.6-6.2); White Blood Count 7.0 K/mm3 (4.4-11.0)
[2024-12-20 06:54] LABS: Anion Gap 13 (5-15); BUN 44 mg/dL (4-19); BUN/Creat Ratio 18.0 RATIO (10-20); Calcium,Total 8.9 mg/dL (7.6-11.0); Carbon Dioxide 25.4 mmol/L (21.0-32.0); Chloride 99 mmol/L (98-108); Estimated Creatinine Clearance 25.77 ml/min (50-250); Glucose 172 mg/dL (70-99); Potassium 4.1 mmol/L (3.3-5.1)
[2024-12-20 08:28] VITALS: BP 139/56; PULSE 68; RESP 17; TEMP 36.2; O2SAT 97
[2024-12-20] MEDS: Aspirin E.C. 81 MG Tablet PO (08:33)
[2024-12-20] MEDS: Fluticasone/Salmeterol 232-14 Inhaler 1 PUFF INHALATION ×2 (08:33→22:08)
[2024-12-20] MEDS: Umeclidinium Bromide Inhaler 1 PUFF INHALATION (08:33)
[2024-12-20] MEDS: Senna/Docusate Sodium 1 Tablet PO ×2 (08:34→22:09)
--- NOTE | 2024-12-20 11:40 | CASEMGMT ---
Social Work [facility] does not have beds. [facility] can clinically accept. They will contact the dtr for financial assessment. [facility]elli [facility]
[2024-12-20 13:47] VITALS: BP 109/60; PULSE 72
[2024-12-20 16:22] VITALS: BP 142/59; PULSE 66
[2024-12-20 22:06] VITALS: PULSE 74; O2SAT 96
[2024-12-20] MEDS: Insulin Glargine-YFGN 100 UNIT/ML Pen 30 UNIT SC (22:19)
--- NOTE | 2024-12-20 23:36 | NURSING ---
Patient refused SCD's at [facility], patient reports they make his legs itch and are uncomfortable, verbal education provided on reason for SCD's, ineffective.
[2024-12-21 05:35] VITALS: BMI 37.1
[2024-12-21 06:15] VITALS: BP 146/60; PULSE 69; O2SAT 97
[2024-12-21] MEDS: Aspirin E.C. 81 MG Tablet PO (08:22)
[2024-12-21 09:16] VITALS: O2SAT 95
[2024-12-21] MEDS: Umeclidinium Bromide Inhaler 1 PUFF INHALATION (09:35)
[2024-12-21] MEDS: Fluticasone/Salmeterol 232-14 Inhaler 1 PUFF INHALATION ×2 (09:36→21:41)
[2024-12-21] MEDS: Senna/Docusate Sodium 1 Tablet PO ×2 (09:37→21:58)
[2024-12-21 10:00] VITALS: PULSE 70; RESP 16; O2SAT 99
[2024-12-21 10:30] VITALS: O2SAT 96
[2024-12-21 16:52] VITALS: BP 148/71; PULSE 72; TEMP 37.1; O2SAT 99
[2024-12-21] MEDS: Insulin Glargine-YFGN 100 UNIT/ML Pen 36 UNIT SC (23:00)
[2024-12-22 05:53] VITALS: BMI 37.2
[2024-12-22 07:54] VITALS: O2SAT 91
[2024-12-22] MEDS: Umeclidinium Bromide Inhaler 1 PUFF INHALATION (08:17)
[2024-12-22] MEDS: Fluticasone/Salmeterol 232-14 Inhaler 1 PUFF INHALATION ×2 (08:18→22:40)
[2024-12-22] MEDS: Aspirin E.C. 81 MG Tablet PO (08:19)
[2024-12-22] MEDS: Senna/Docusate Sodium 1 Tablet PO ×2 (08:20→22:44)
--- NOTE | 2024-12-22 12:03 | CASEMGMT ---
Addendum entered by Kelli Vanegas 12/22/24 15:47: PASRR completed and LOC faxed to [facility] Original Note: Social Work Insurance issued LCD 12/24, DC 12/25 SW spoke with pt at bedside and informed of DC date. SW provided NOMNC to pt and educated to appeal rights. Pt verbalized understanding and denied appeal. Pt is agreeable to DC. SW updated pt on SNF outcomes - [facility] and [facility] cannot accept, but [facility] and [facility] can accept. Pt stated he wants to stay within [place] for proximity to dtr. SW and pt reviewed printed SNF list and pt agreed for referrals to [facility], [facility] and [facility]. SW to update pt with accepting SNFs for FOC. - SW received a call from dtr prior to when this worker had availability to contact dtr. SW educated to above discussion. Dtrs preference is [facility] as that is right by pt's apartment. SW educated [facility] has semi-private rooms, which is typically what Medicaid covers. Dtr agreeable. SW to place referral and notify pt and dtr of outcome. Dtr unsure if she can transport d/t work, but will notify this worker. - [facility] - [facility] can accept and that is FOC and requesting LOC. SW to complete PASRR and LOC request. SW to update pt/dtr. Plan: DC 12/25, [facility], intermediate, Medicaid pending. Kelli Vanegas GRADUATE CIVIL ENGINEER MOTOR TEACHER
[2024-12-22 13:00] VITALS: BP 119/53; PULSE 67; RESP 20; TEMP 36.4; O2SAT 97
--- NOTE | 2024-12-22 20:32 | DS.PCM_ITS ---
Providers Date of Admission: 12/05/24 Primary Care Physician: Dr. Kain Bhakta MD Reason For Visit: ENCEPHALOPATHY & HYPOGLYCEMIA Diagnosis Discharge Diagnosis (1) Debility: Status: Acute Code(s): R53.81 - Other malaise (2) Encephalopathy: Status: Acute Code(s): G93.40 - Encephalopathy, unspecified (3) Hypoglycemia: Status: Acute Code(s): E16.2 - Hypoglycemia, unspecified (4) Type 2 diabetes mellitus with hyperglycemia: Status: Acute Code(s): E11.65 - Type 2 diabetes mellitus with hyperglycemia (5) Chronic heart failure with preserved ejection fraction (HFpEF): Status: Acute Code(s): I50.32 - Chronic diastolic (congestive) heart failure (6) HLD (hyperlipidemia): Status: Chronic Code(s): E78.5 - Hyperlipidemia, unspecified Qualifiers: Hyperlipidemia type: pure hypercholesterolemia Qualified Code(s): E 78.00 - Pure hypercholesterolemia, unspecified; E78.0 - Pure hypercholesterolemia (7) Hypothyroidism: Status: Acute Code(s): E03.9 - Hypothyroidism, unspecified (8) Diabetic polyneuropathy: Status: Acute Code(s): E11.42 - Type 2 diabetes mellitus with diabetic polyneuropathy (9) Coronary artery disease: Status: Acute Code(s): I25.10 - Atherosclerotic heart disease of [place] coronary artery without angina pectoris (10) COPD (chronic obstructive pulmonary disease): Status: Chronic Code(s): J44.9 - Chronic obstructive pulmonary disease, unspecified Qualifiers: COPD type: emphysema Emphysema type: centrilobular Qualified Code(s): J43.2 - Centrilobular emphysema (11) Chronic hypoxemic respiratory failure: Status: Chronic Code(s): J96.11 - Chronic respiratory failure with hypoxia (12) BPH (benign prostatic hyperplasia): Status: Acute Code(s): N40.0 - Benign prostatic hyperplasia without lower urinary tract symptoms (13) CKD (chronic kidney disease), stage IV: Status: Chronic Code(s): N18.4 - Chronic kidney disease, stage 4 (severe) (14) Morbid obesity: Status: Acute Code(s): E66.01 - Morbid (severe) obesity due to excess calories Plan 84 year old male with below past medical history hospitalized for encephalopathy 2/2 hypoglycemia, admitted to TCU with debility, here for rehabilitation, strengthening, prior to discharge home alone. * Debility - PT/OT. * Pain - Tylenol 1000mg q6 prn pain (1-10). * Bowel - senna/colace 1 tablet bid, Magnesium citrate 300mL daily prn * Adult immunization - Administer pneumonia vaccine, covid vaccine, flu vaccine as appropriate. * DVT prophylaxis - Hold, on DAPT, and anemic. * COPD - Fluticasone/Salmeterol 232-14 1 puff bid, Incruse 1 puff daily, Albuterol 2.5mg neb q2h prn, oxygen chronic. * Hypertension - Coreg 6.25mg bidcm, Amlodipine 5mg daily. * Iron deficiency anemia - Ferrex 150mg daily, Vitamin C 500mg daily. * Coronary artery disease s/p stent - Coreg 6.25mg bidcm, Ranexa 500mg bid, Plavix 75mg daily, Aspirin 81mg daily, NTG 0.4mg sl q5m prn chest pain. * Hyperlipidemia - Atorvastatin 40mg qhs. * Chronic HFpEF - Coreg 6.25mg bidcm, Furosemide 40mg bidlx. * Diabetic polyneuropathy - Gabpentin 300mg bid. * Diabetes Mellitus II - goal A1c < 8.5, A1c 6.9, Glargine 15 units qhs. * Hypothyroidism - Levothyroxine 25mcg daily. * GERD - Pantoprazole 40mg daily. * BPH - Tamsulosin 0.4mg daily. The following psychotropic medication was present on admission: Trazodone 25mg qhs. Psychotropic medication therapy is indicated for a diagnosis of: Insomnia. Based on my clinical evaluation, continuation of the medication is necessary at this time. Gradual dose reduction plan (select one): ____ GDR will be attempted. Will monitor patient symptoms and behaviors in response to GDR. __x__ GRD contraindicated. Reason contraindicated: stable chronic longterm use. Medications at Discharge Home Medications levothyroxine 25 mcg tablet 25 mcg PO DAILY THYROID 07/09/22 ascorbate calcium (vitamin C) 500 mg tablet 500 mg PO DAILY SUPPLEMENT 03/09/24 gabapentin 300 mg capsule 300 mg PO BID NEUROPATHY 03/09/24 polysaccharide iron complex 150 mg iron capsule (Ferrex) 150 mg PO DAILY SUPPLEMENT 03/09/24 aspirin 81 mg tablet,delayed release 81 mg PO BREAKFAST heart #30 tabs 03/23/24 nitroglycerin 0.4 mg sublingual tablet 0.4 mg sublingual Q5M PRN Cardiac/Chest Pain #30 tabs 03/23/24 amlodipine 5 mg tablet 5 mg PO DAILY BP 30 days #30 tabs 04/07/24 atorvastatin 40 mg tablet 40 mg PO QHS Cholesterol 30 days #30 tabs 04/07/24 carvedilol 6.25 mg tablet 6.25 mg PO BID BP 30 days #60 tabs 04/07/24 furosemide 40 mg tablet 40 mg PO BIDLX Edema 30 days #60 tabs 04/07/24 tamsulosin 0.4 mg capsule 0.4 mg PO DAILY@1730 Urinary Retention 30 days #30 caps 04/07/24 ranolazine 500 mg tablet,extended release,12 hr 500 mg PO BID Heart #60 tabs 09/13/24 clopidogrel 75 mg tablet 75 mg PO DAILY blood thinner 11/21/24 trazodone 50 mg tablet 25 mg PO QHS sleep 11/21/24 fluticasone 232 mcg-salmeterol 14 mcg/actuation breath activated powdr 1 inh inhalation Q12 #0 ea 12/22/24 insulin glargine-yfgn 100 unit/mL (3 mL) subcutaneous pen 36 unit (0.36 mL) subcut QHS #0 mL 12/22/24 insulin lispro 100 unit/mL subcutaneous pen (Humalog KwikPen (U-100) Insulin) 12 unit (0.12 mL) subcut TIDAC #0 mL 12/22/24 magnesium citrate 300 ml PO DAILY PRN Constipation #0 mL 12/22/24 pantoprazole 40 mg tablet,delayed release 40 mg PO DAILY #0 tabs 12/22/24 sennosides 8.6 mg-docusate sodium 50 mg tablet (Stimulant Laxative Plus) 1 tab PO BID #0 tabs 12/22/24 umeclidinium 62.5 mcg/actuation blister powder for inhalation (Incruse Ellipta) 1 inh inhalation DAILY #0 ea 12/22/24 Hospital Course Operations None Procedures None Summary of Care Provided Minutes Spent on Discharge: 35 Hospital Course: 84 year old male with below past medical history hospitalized for encephalopathy 2/2 hypoglycemia, admitted to TCU with debility, here for rehabilitation, strengthening, prior to discharge home alone. Discharge 12/25/2024, [facility], [facility], Medicaid pending. Encephalopathy resolved. Physical Exam Const alert General Appearance: cooperative HEENT normocephalic Eyes PERRL and EOMs intact bilaterally Neck supple, no JVD and no carotid bruits Resp normal respiratory effort, normal air movement and clear to auscultation bilaterally Cardio regular rate and regular rhythm GI normal to inspection, nondistended, normoactive bowel sounds, non-tender and non-distended Extremity normal capillary refill General Extremity: Negative for edema Skin no rashes or lesions noted General Skin Exam: no breakdown Psych affect normal Appearance: appropriate Weight / BMI Weight Weight: 105.007 kg Body Mass Index (BMI) 37.2 ABG / Lab / Microbiology Data 12/20/24 05:31 12/20/24 05:31 Laboratory: Laboratory Results - last 24 hr 12/21/24 21:48: POC Glucose 104 12/21/24 22:57: POC Glucose 180 H 12/22/24 05:58: POC Glucose 232 H 12/22/24 11:30: POC Glucose 194 H 12/22/24 16:12: POC Glucose 189 H D/C Instructions Discharge Activity: Return to Normal Activity, May Shower and Use Walker Weight Bearing Status: Weight bearing as tolerated Call your doctor if you observe: Fever of 101 or Higher, Inability to urinate, Inability to have a bowel movement, Shortness of breath, Dizziness, Fainting spells, Swelling in the ankles, Chest pain and Uncontrolled pain DC O2, CPAP, BIPAP Needs Home O2 Discharge instructions: Yes Type of respiratory needs?: Oxygen (2) Oxygen frequency: Continuous Continuous oxygen liters per minute: 2 DC home with Oxygen: Yes Home O2 MD Review: I have reviewed the oxygen testing, and the patient qualifies for home oxygen equipment and portability. The patient is mobile in the home and the community. Additional Instructions: Discharge 12/25/2024, [facility], [facility], Medicaid pending. Meaningful Use Info Meaningful Use Meaningful Use Diagnoses (Choose all that apply): None applicable Discharge Plan Admission Admit Date/Time: 12/05/24 18:20 Primary Reason for Your Visit: Debility. Attending Provider: Kain Bhakta Chi Primary Care Provider: Kain Bhakta Chi Instructions Additional Instructions / Restrictions: Discharge 12/25/2024, [facility], intermediate, Medicaid pending. Discharge Orders/Prescriptions Prescriptions: New sennosides-docusate sodium [Stimulant Laxative Plus] 8.6-50 mg Tablet 1 tab PO BID Qty: 0 0RF pantoprazole 40 mg Tablet,Delayed Release (Dr/Ec) 40 mg PO DAILY Qty: 0 0RF magnesium citrate Solution 300 ml PO DAILY PRN (Reason: Constipation) Qty: 0 0RF insulin lispro [Humalog KwikPen Insulin] 100 unit/mL Insulin Pen 12 unit subcut TIDAC Qty: 0 0RF Incruse Ellipta 62.5 mcg/actuation Blister With Device 1 inh inhalation DAILY Qty: 0 0RF fluticasone propion-salmeterol 232-14 mcg/actuation Aerosol Powdr Breath Activated 1 inh inhalation Q12 Qty: 0 0RF insulin glargine-yfgn 100 unit/mL (3 mL) Insulin Pen 36 unit subcut QHS Qty: 0 0RF Continued ascorbate calcium (vitamin C) 500 mg tablet 500 mg PO DAILY polysaccharide iron complex [Ferrex 150] 150 mg iron capsule 150 mg PO DAILY ranolazine 500 mg tablet extended release 12 hr 500 mg PO BID Qty: 60 11RF gabapentin 300 mg capsule 300 mg PO BID levothyroxine 25 mcg Tablet 25 mcg PO DAILY furosemide 40 mg Tablet 40 mg PO BIDLX 30 Days Qty: 60 0RF atorvastatin 40 mg Tablet 40 mg PO QHS 30 Days Qty: 30 0RF carvedilol 6.25 mg Tablet 6.25 mg PO BID 30 Days Qty: 60 0RF amlodipine 5 mg Tablet 5 mg PO DAILY 30 Days Qty: 30 0RF tamsulosin 0.4 mg Capsule 0.4 mg PO DAILY@1730 30 Days Qty: 30 0RF nitroglycerin 0.4 mg Tablet, Sublingual 0.4 mg sublingual Q5M PRN (Reason: Cardiac/Chest Pain) Qty: 30 2RF aspirin 81 mg Tablet,Delayed Release (Dr/Ec) 81 mg PO BREAKFAST Qty: 30 2RF clopidogrel 75 mg tablet 75 mg PO DAILY trazodone 50 mg tablet 25 mg PO QHS Discontinued famotidine 40 MG tablet 40 mg PO DAILY glimepiride 4 mg Tablet 4 mg PO DAILY insulin degludec [Tresiba FlexTouch U-100] 100 unit/mL (3 mL) insulin pen 15 unit subcut QHS Qty: 15 0RF Referrals / Follow Up: Kain Bhakta Chi, MD [Primary Care Provider] - 12/29/24 11:40 am Disposition Disposition (needs filled in before D/C Order can be placed): NonSkilled NH/Intermed Care
--- NOTE | 2024-12-22 20:40 | TREXTCAR_ITS ---
Diet Diet Order/Speech Therapy: INPATIENT Hospital Diet / Speech Therapy Order(s) 12/06/24 10:58 Diet: Cardiac - Heart Healthy Food consistency:: Regular Liquid Consistency:: Regular/Thin Dietary Modifications:: Consistent Carbohydrate Routine Orders/Code Status Code Status: DNRCC-A (No intubation.) DC O2, CPAP, BIPAP needs Home O2 Discharge instructions: Yes Type of respiratory needs?: Oxygen (2) Oxyg en frequency: Continuous Continuous oxygen liters per minute: 2 Wound(s) Left knee: Wound Type: Abrasion Left [place]re[place]: Wound Type: Abrasion Right castre[place]: Wound Type: Abrasion Therapies Weight Bearing: Weight bearing as tolerated Extremity Affected:: Bilateral Lower Physical Therapy: Eval and Treat Occupational Therapy: Eval and Treat Problem/Diagnosis (1) Debility: Status: Acute Code(s): R53.81 - Other malaise (2) Encephalopathy: Status: Acute Code(s): G93.40 - Encephalopathy, unspecified (3) Hypoglycemia: Status: Acute Code(s): E16.2 - Hypoglycemia, unspecified (4) Type 2 diabetes mellitus with hyperglycemia: Status: Acute Code(s): E11.65 - Type 2 diabetes mellitus with hyperglycemia (5) Chronic heart failure with preserved ejection fraction (HFpEF): Status: Acute Code(s): I50.32 - Chronic diastolic (congestive) heart failure (6) HLD (hyperlipidemia): Status: Chronic Code(s): E78.5 - Hyperlipidemia, unspecified (7) Hypothyroidism: Status: Acute Code(s): E03.9 - Hypothyroidism, unspecified (8) Diabetic polyneuropathy: Status: Acute Code(s): E11.42 - Type 2 diabetes mellitus with diabetic polyneuropathy (9) Coronary artery disease: Status: Acute Code(s): I25.10 - Atherosclerotic heart disease of [place] coronary artery without angina pectoris (10) COPD (chronic obstructive pulmonary disease): Status: Chronic Code(s): J44.9 - Chronic obstructive pulmonary disease, unspecified (11) Chronic hypoxemic respiratory failure: Status: Chronic Code(s): J96.11 - Chronic respiratory failure with hypoxia (12) BPH (benign prostatic hyperplasia): Status: Acute Code(s): N40.0 - Benign prostatic hyperplasia without lower urinary tract symptoms (13) CKD (chronic kidney disease), stage IV: Status: Chronic Code(s): N18.4 - Chronic kidney disease, stage 4 (severe) (14) Morbid obesity: Status: Acute Code(s): E66.01 - Morbid (severe) obesity due to excess calories Plan 84 year old male with below past medical history hospitalized for encephalopathy 2/2 hypoglycemia, admitted to TCU with debility, here for rehabilitation, strengthening, prior to discharge home alone. * Debility - PT/OT. * Pain - Tylenol 1000mg q6 prn pain (1-10). * Bowel - senna/colace 1 tablet bid, Magnesium citrate 300mL daily prn * Adult immunization - Administer pneumonia vaccine, covid vaccine, flu vaccine as appropriate. * DVT prophylaxis - Hold, on DAPT, and anemic. * COPD - Fluticasone/Salmeterol 232-14 1 puff bid, Incruse 1 puff daily, Albuterol 2.5mg neb q2h prn, oxygen chronic. * Hypertension - Coreg 6.25mg bidcm, Amlodipine 5mg daily. * Iron deficiency anemia - Ferrex 150mg daily, Vitamin C 500mg daily. * Coronary artery disease s/p stent - Coreg 6.25mg bidcm, Ranexa 500mg bid, Plavix 75mg daily, Aspirin 81mg daily, NTG 0.4mg sl q5m prn chest pain. * Hyperlipidemia - Atorvastatin 40mg qhs. * Chronic HFpEF - Coreg 6.25mg bidcm, Furosemide 40mg bidlx. * Diabetic polyneuropathy - Gabpentin 300mg bid. * Diabetes Mellitus II - goal A1c < 8.5, A1c 6.9, Glargine 15 units qhs. * Hypothyroidism - Levothyroxine 25mcg daily. * GERD - Pantoprazole 40mg daily. * BPH - Tamsulosin 0.4mg daily. The following psychotropic medication was present on admission: Trazodone 25mg qhs. Psychotropic medication therapy is indicated for a diagnosis of: Insomnia. Based on my clinical evaluation, continuation of the medication is necessary at this time. Gradual dose reduction plan (select one): ____ GDR will be attempted. Will monitor patient symptoms and behaviors in response to GDR. __x__ GRD contraindicated. Reason contraindicated: stable chronic care home use. Allergies/Procedures Done in Hospital Allergies No Known Allergies Allergy (Verified 12/02/24 10:16) Procedures: None Type of Care/Length of Stay Estimated LOS: More Than 30 Days Type of Care Needed: Intermediate Rehab Potential: Fair Prognosis: Fair Additional Orders/Day of Discharge Additional Orders: part B therapies Day of Discharge: 12/25/24 Dietary and Speech Recommendations Dietitian Recommendations/Changes: Continue cardiac, consistent carbohydrate diet to manage medical conditions. Will monitor weight trends. Discharge Plan Admission Admit Date/Time: 12/05/24 18:20 Primary Reason for Your Visit: Debility. Attending Provider: Kain Bhakta Chi Primary Care Provider: Kain Bhakta Chi Instructions Additional Instructions / Restrictions: Discharge 12/25/2024, [facility], intermediate, Medicaid pending. Discharge Orders/Prescriptions Prescriptions: New sennosides-docusate sodium [Stimulant Laxative Plus] 8.6-50 mg Tablet 1 tab PO BID Qty: 0 0RF pantoprazole 40 mg Tablet,Delayed Release (Dr/Ec) 40 mg PO DAILY Qty: 0 0RF magnesium citrate Solution 300 ml PO DAILY PRN (Reason: Constipation) Qty: 0 0RF insulin lispro [Humalog KwikPen Insulin] 100 unit/mL Insulin Pen 12 unit subcut TIDAC Qty: 0 0RF Incruse Ellipta 62.5 mcg/actuation Blister With Device 1 inh inhalation DAILY Qty: 0 0RF fluticasone propion-salmeterol 232-14 mcg/actuation Aerosol Powdr Breath Activated 1 inh inhalation Q12 Qty: 0 0RF insulin glargine-yfgn 100 unit/mL (3 mL) Insulin Pen 36 unit subcut QHS Qty: 0 0RF Continued ascorbate calcium (vitamin C) 500 mg tablet 500 mg PO DAILY polysaccharide iron complex [Ferrex 150] 150 mg iron capsule 150 mg PO DAILY ranolazine 500 mg tablet extended release 12 hr 500 mg PO BID Qty: 60 11RF gabapentin 300 mg capsule 300 mg PO BID levothyroxine 25 mcg Tablet 25 mcg PO DAILY furosemide 40 mg Tablet 40 mg PO BIDLX 30 Days Qty: 60 0RF atorvastatin 40 mg Tablet 40 mg PO QHS 30 Days Qty: 30 0RF carvedilol 6.25 mg Tablet 6.25 mg PO BID 30 Days Qty: 60 0RF amlodipine 5 mg Tablet 5 mg PO DAILY 30 Days Qty: 30 0RF tamsulosin 0.4 mg Capsule 0.4 mg PO DAILY@1730 30 Days Qty: 30 0RF nitroglycerin 0.4 mg Tablet, Sublingual 0.4 mg sublingual Q5M PRN (Reason: Cardiac/Chest Pain) Qty: 30 2RF aspirin 81 mg Tablet,Delayed Release (Dr/Ec) 81 mg PO BREAKFAST Qty: 30 2RF clopidogrel 75 mg tablet 75 mg PO DAILY trazodone 50 mg tablet 25 mg PO QHS Discontinued famotidine 40 MG tablet 40 mg PO DAILY glimepiride 4 mg Tablet 4 mg PO DAILY insulin degludec [Tresiba FlexTouch U-100] 100 unit/mL (3 mL) insulin pen 15 unit subcut QHS Qty: 15 0RF Referrals / Follow Up: Kain Bhakta Chi, MD [Primary Care Provider] - 12/29/24 11:40 am Disposition Disposition (needs filled in before D/C Order can be placed): NonSkilled NH/Intermed Care (6) HLD (hyperlipidemia) Qualifiers: Hyperlipidemia type: pure hypercholesterolemia Qualified Code(s): E78.00 - Pure hypercholesterolemia, unspecified; E78.0 - Pure hypercholesterolemia (10) COPD (chronic obstructive pulmonary disease) Qualifiers: COPD type: emphysema Emphysema type: centrilobular Qualified Code(s): J43.2 - Centrilobular emphysema
[2024-12-22] MEDS: Insulin Glargine-YFGN 100 UNIT/ML Pen 36 UNIT SC (22:42)
[2024-12-23 05:52] VITALS: BMI 37.0
[2024-12-23 08:40] VITALS: BP 146/58; PULSE 82; RESP 16; TEMP 36.4; O2SAT 99
[2024-12-23] MEDS: Aspirin E.C. 81 MG Tablet PO (08:44)
[2024-12-23] MEDS: Senna/Docusate Sodium 1 Tablet PO ×2 (08:44→22:16)
[2024-12-23] MEDS: Fluticasone/Salmeterol 232-14 Inhaler 1 PUFF INHALATION ×2 (08:45→22:11)
[2024-12-23] MEDS: Umeclidinium Bromide Inhaler 1 PUFF INHALATION (09:55)
--- NOTE | 2024-12-23 12:38 | CASEMGMT ---
Social Work LOC received. DC paperwork sent to [facility]. Dtr will transport pt. Kelli Vanegas OCCUPATIONAL HEALTH PHYSIOTHERAPIST MOLDED PARTS INSPECTOR
[2024-12-23 13:33] VITALS: BP 134/47; PULSE 62
--- NOTE | 2024-12-23 17:47 | CASEMGMT ---
Social Work SW completed BIMS () and PHQ-9 (12/11) for MDS assessment. Pt kept expressing feeling down stems from the position my life is in right now. SW provided emotional support and encouragement for the future. Kelli Vanegas WOOD GRAINER MACHINIST SUPERVISOR OUTSIDE
[2024-12-23 19:57] VITALS: O2SAT 98
[2024-12-23 20:00] VITALS: PULSE 80; O2SAT 98
[2024-12-23] MEDS: Insulin Glargine-YFGN 100 UNIT/ML Pen 36 UNIT SC (22:13)
--- NOTE | 2024-12-23 23:07 | NURSING ---
Patient refused SCD's at [facility], patient reports they make his legs itch and are uncomfortable, verbal education provided on reason for SCD's, ineffective.
[2024-12-24 05:45] VITALS: BMI 36.8
[2024-12-24 06:12] VITALS: BP 149/60; PULSE 68; O2SAT 98
[2024-12-24 07:05] VITALS: PULSE 74; O2SAT 98
[2024-12-24 07:28] VITALS: O2SAT 99
[2024-12-24] MEDS: Umeclidinium Bromide Inhaler 1 PUFF INHALATION (08:20)
[2024-12-24] MEDS: Fluticasone/Salmeterol 232-14 Inhaler 1 PUFF INHALATION ×2 (08:21→22:27)
[2024-12-24] MEDS: Aspirin E.C. 81 MG Tablet PO (08:22)
[2024-12-24] MEDS: Senna/Docusate Sodium 1 Tablet PO ×2 (08:22→22:28)
[2024-12-24 09:00] VITALS: BP 139/61; PULSE 73; RESP 16; TEMP 36.8; O2SAT 99
[2024-12-24 10:51] VITALS: O2SAT 94
--- NOTE | 2024-12-24 22:13 | NURSING ---
Patient was given cookies and hernandez crackers for bedtime snack prior to HS medication administration. Following administration of snacks, pt's blood sugar resulted at 90. Notified Dr. Bhakta of pt's HS blood glucose via telephone. New orders received to hold HS dose of Glargine received. Order verified via readback.
[2024-12-24 22:30] VITALS: BP 139/57; PULSE 66
[2024-12-25 04:12] VITALS: BMI 36.4
[2024-12-25 06:07] VITALS: BP 126/58; PULSE 70
[2024-12-25 06:15] VITALS: PULSE 75; RESP 18; O2SAT 98
[2024-12-25] MEDS: Umeclidinium Bromide Inhaler 1 PUFF INHALATION (08:08)
[2024-12-25] MEDS: Fluticasone/Salmeterol 232-14 Inhaler 1 PUFF INHALATION (08:10)
[2024-12-25] MEDS: Senna/Docusate Sodium 1 Tablet PO (08:12)
[2024-12-25] MEDS: Aspirin E.C. 81 MG Tablet PO (08:12)
[2024-12-25 11:39] VITALS: BP 144/72; PULSE 79; RESP 14; TEMP 36.8; O2SAT 97
--- NOTE | 2024-12-25 12:05 | NURSING ---
Report called to [facility].
== END 2024-12-25 12:30 | disposition intermediate care facility (04) | DRG 638 ==
PROVIDERS: Admitting Provider Family Medicine Geriatric Medicine; PCP Family Medicine Geriatric Medicine; Visit Provider Family Medicine Geriatric Medicine
DX: E11.649 Type 2 diabetes mellitus with hypoglycemia without coma (principal); J96.11 Chronic respiratory failure with hypoxia; I13.0 Hypertensive heart and chronic kidney disease with heart failure and stage 1 through stage 4 chronic kidney disease, or unspecified chronic kidney disease; I50.32 Chronic diastolic (congestive) heart failure; E11.22 Type 2 diabetes mellitus with diabetic chronic kidney disease; D50.9 Iron deficiency anemia, unspecified; E03.9 Hypothyroidism, unspecified; E11.65 Type 2 diabetes mellitus with hyperglycemia; N18.4 Chronic kidney disease, stage 4 (severe); E66.01 Morbid (severe) obesity due to excess calories; J43.2 Centrilobular emphysema; E11.42 Type 2 diabetes mellitus with diabetic polyneuropathy; I25.10 Atherosclerotic heart disease of native coronary artery without angina pectoris; E78.00 Pure hypercholesterolemia, unspecified; K21.9 Gastro-esophageal reflux disease without esophagitis; Z95.5 Presence of coronary angioplasty implant and graft; N40.0 Benign prostatic hyperplasia without lower urinary tract symptoms; Z79.890 Hormone replacement therapy; Z79.899 Other long term (current) drug therapy; Z87.891 Personal history of nicotine dependence; Z79.84 Long term (current) use of oral hypoglycemic drugs; Z79.82 Long term (current) use of aspirin; Z68.36 Body mass index [BMI] 36.0-36.9, adult; G47.00 Insomnia, unspecified
CPT/HCPCS: 36415; 80048; 82962; 85025; 92507; 92523; 97110; 97116; 97162; 97166; 97530; 97535; 97802; A4216

== ENCOUNTER → 2025-04-05 05:00 | Outpatient (REF) | payer MEDICARE, SELFPAY ==
--- OUTSIDE RECORDS SUMMARY | 2025-04-05 04:54 | XMS RPT_ITS | CCD ---
Author Organization [facility] Care Team Providers Care B Operator Name Role Phone Dr. Kain Bhakta Chi Primary Care Provider Dr. Dayday Murphy Emergency Provider [phone] Dr. Yifan Diamond Admit Provider Dr. Yifan Diamond Attending Provider Dr. Yifan Diamond Other Provider Dr. Curt Liu Attending Provider Dr. Alen Rojas Attending Provider Dr. Alen Rojas Other Provider Dr. Markell Olson Other Provider Dr. Simba Bustos Other Provider Dr. Hunter Levy Other Provider Parminder ENTERPRISE APPLICATION ANALYST, ENTERPRISE APPLICATION ANALYST-C Laverne Other Provider Dr. Milton Cordova Other Provider Unavail le Dr. Hunter Levy Attending Provider Dr. Markell Olson Attending Provider Dr. Amy Becker Other Provider Dr. Amy Becker Attending Provider Dr. Simba Bustos Attending Provider Dr. Yifan Diamond Referring Provider Dr. Alen Rojas Referring Provider Dr. Kain Bhakta Chi Primary Care Provider Dr. Dayday Murhpy Emergency Provider Dr. Yifan Diamond Admit Provider Dr. Yifan Diamond Attending Provider Dr. Yifan Diamond Other Provider Alexa, Dr. Curt De Anda Attending Provider Dr. Yifan Diamond Referring Provider Dr. Alen Rojas Attending Provider Dr. Alen Rojas Other Provider Wesley, Dr. Guillaume Other Provider Dr. Simba Bustos Other Provider Dr. Hunter Levy Other Provider Parminder ENTERPRISE APPLICATION ANALYST, ENTERPRISE APPLICATION ANALYST-C Laverne Other Provider Dr. Milton Cordova Other Provider Unavailab le Dr. Alen Rojas Referring Provider Dr. Hunter Levy Attending Provider Dr. Markell Olson Attending Provider Dr. Amy Becker Other Provider Dr. Amy Becker Attending Provider Dr. Simba Bustos Attending Provider Dr. Kain Bhakta Chi Primary Care Provider Yony, Dr. Kain Gomez Referring Provider Dr. Hunter Levy Attending Provider Dr. Hunter Levy Referring Provider Dr. Hunter Levy Other Provider Dr. Markell Olson Attending Provider Yony, Dr. Kain Gomez Primary Care Provider Yony, Dr. Kain Gomez Referring Provider Dr. Hunter Levy Attending Provider Dr. Hunter Levy Referring Provider Dr. Hunter Levy Other Provider Dr. Markell Olson Attending Provider Parminder ENTERPRISE APPLICATION ANALYST, ENTERPRISE APPLICATION ANALYSTRita Galloway Attending Provider Yony EVANS, Dr. Kain Gomez Primary Care Provider [phone] Dr. Keshia Cottrell DO Attending Provider Simba BLACK, Dr. Schmitt Referring Provider Yony EVANS, Dr. Kain Gomez Referring Provider Daisha Shaver Attending Provider Mary Anne EVANS, Dr. Ashton Referring Provider Tayo EVANS, Dr. Higuera Attending Provider Yony EVANS, Dr. Kain Gomez Primary Care Provider [phone] Daisha Shaver Referring Provider Tito EVANS, Donald Emergency Provider Donald Francis MD Attending Provider Yony EVANS, Dr. Kain Gomez Attending Provider [phone] Trae Madsen DO Emergency Provider Dr. Trae Madsen [facility] Provider Emelia EVANS, Dr. Afsaneh Boateng Admit Provider [phone] Emelia EVANS, Dr. Afsaneh Boateng Attending Provider Emelia EVANS, Dr. Afsaneh Boateng Other Provider [phone] Ashley EVANS, Dr. Nora Pike Attending Provider Ashley EVANS, Dr. Nora Pike Other Provider [phone] Emelia EVANS, Dr. Afsaneh Boateng Attending Provider Yony EVANS, Dr. Kain Gomez Admit Provider [phone] Yony, Kain Chi Referring Unavailable Yony, Kain Chi Primary Care Unavailable Yony, Kain Chi Attending Unavailable Kalen Cr Attending Unavailable Yony, Kain Chi Primary Care Unavailable Daisha Shaver Referring Unavail able White, Afsaneh L Consulting Unavailable White, Afsaneh L Admitting Unavailable Koram, Nora Glendy Attending Unavailable Yony, Kain Chi Primary Care Unavailable Koram, Nora Glendy Consulting Unavailable White, Afsaneh L Attending Unavailable Yony, Kain Chi Primary Care Unavailable Yony, Kain Chi Attending Unavailable Yony, Kain Chi Referring Unavailable Yony, Kain Chi Primary Care Unavailable Yony, Kain Chi Attending Unavailable Simba, Keshia Referring Unavailable Simba Keshia Attending Unavailable Yony, Kain Chi Primary Care Unavailable Yony, Kain Chi Primary Care Unavailable Yony, Kain Chi Attending Unavailable Yony, Kain Chi Primary Care Unavailable Donald Francis Attending Unavailable Yony, Kain Chi Referring Unavailable Yony, Kain Chi Primary Care Unavailable Hossein Petersen Attending Unavailable Yony, Kain Chi Primary Care Unavailable Yony, Kain Chi Referring Unavailable Daisha Shaver Attending Unavail able Yony, Kain Chi Primary Care Unavailable Yony, Kain Chi Referring Unavailable Daisha Shaver Attending Unavail able Yony, Kain Chi Primary Care Unavailable Trae Madsen Attending Unavailable Yony, Kain Chi Referring Unavailable Yony, Kain Chi Primary Care Unavailable Yony, Kain Chi Attending Unavailable Geo Olvera Attending Unavailable Yony, Kain Chi Primary Care Unavailable Yony, Kain Chi Admitting Unavailable Yony, Kain Chi Primary Care Unavailable Yony, Kain Chi Referring Unavailable Yony, Kain Chi Attending Unavailable Yony, Kain Chi Admitting Unavailable Yony, Kain Chi Attending Unavailable Yony, Kain Chi Primary Care Unavailable White, Afsaneh L Admitting Unavailable White, Afsaneh L Consulting Unavailable Koram, Nora Glendy Attending Unavailable Yony, Kain Chi Primary Care Unavailable Koram, Nora Glendy Consulting Unavailable Yony, Kain Chi Attending Unavailable Yony, Kain Chi Primary Care Unavailable Daisha North Referring Unavailable Yony, Kain Chi Primary Care Unavailable Daisha Shaver Attending Unavail able Yony, Kain Chi Primary Care Unavailable Yony, Kain Chi Attending Unavailable Yony, Kain Chi Referring Unavailable Yony, Kain Chi Primary Care Unavailable Riley Childers Attending Unavailable Riley Childers Attending Unavailable Yony, Kain Chi Primary Care Unavailable Yony, Kain Chi Referring Unavailable Yony, Kain Chi Referring Unavailable Yony, Kain Chi Primary Care Unavailable Riley Childers Attending Unavailable Yony Dr. Kain EVANS Chi Primary Care Physician Yony EVANS, Dr. Kain Gomez Referring Provider Daisha Shaver Attending Physician Dr. Tsering Emanuel DO Emergency Department Physi marcos Emelia EVANS, Dr. Afsaneh Boateng Admitting Physician Emelia EVANS, Dr. Afsaneh Boateng Nurse Practitioner Ashley EVANS, Dr. Nora Pike Attending Physician Ashley EVANS, Dr. Nora Pike Nurse Practitioner Emelia EVANS, Dr. Afsaneh Boateng Attending Physician Yony EVANS, Dr. Kain Gomez Admitting Physician Yony EVANS, Dr. Kain Gomez Attending Physician Geo Bartholomew MD Attending Physician UnavailHossein Guillen Attending Physician Medications Current Medications Medication Drug Class(es) Dates Sig (Normalized) Sig (Original) Albuterol Sulfate (20 sources) beta2-Adrenergic Agonist Start: 07-14-2018 take 1 puff(s) by inhalation every four hours as needed Albuterol Sulfate (Ventolin Hfa) 1 INHALER inhaler Active 2 PUFF INHALATION EVERY 4 HOURS NEEDED July 14, 2018 4:24pm Start: 07-14-2018 take 1 puff(s) by in halation every four hours as needed Albuterol Sulfate (Ventolin Hfa) 1 INHALER inhaler Active 2 PUFF INHALATION EVERY 4 HOURS NEEDED July 14, 2018 1:00am Start: 07-14-2018 End: 03-15-2024 Albuterol Sulfate (Ventolin Hfa) 1 INHALER inhaler Discontinued 2 NMA INHALATION EVERY 4 HOURS NEEDED as needed for SOB/wheeZing 1 0 July 14, 2018 12:00am March 15, 2024 3:35pm Start: 07-14-2018 End: 03-15-2024 Albuterol Sulfate (Ventolin Hfa) 1 INHALER inhaler Discontinued 2 NMA INHALATION EVERY 4 HOURS NEEDED as needed for SOB/wheeZing 1 0 July 14, 2018 1:00am March 15, 2024 4:35pm Start: 07-14-2018 End: 03-15-2024 Albuterol Sulfate (Ventolin Hfa) 1 INHALER inhaler Discontinued 2 NMA INHALATION EVERY 4 HOURS NEEDED as needed for SOB/wheeZing July 14, 2018 1:00am March 15, 2024 4:35pm Start: 07-14-2018 take 1 puff(s) by in halation every four hours as needed Albuterol Sulfate (Ventolin Hfa) 1 INHALER inhaler Active 2 PUFF INHALATION EVERY 4 HOURS NEEDED July 14, 2018 1:00am Start: 07-14-2018 take 1 puff(s) by in halation every four hours as needed Albuterol Sulfate (Ventolin Hfa) 1 INHALER inhaler Active 2 PUFF INHALATION EVERY 4 HOURS NEEDED July 14, 2018 12:00am aspirin 81 mg delayed release oral tablet (20 sources) Platelet Aggregation Inhibitor, Nonsteroidal Anti-inflammatory Drug Start: 03-23-2024 take 1 tablet by mouth at breakfast Aspirin 81 mg Tablet,Delayed Release (Dr/Ec) Active 81 mg PO WITH BREAKFAST 30 March 23, 2024 12:00am heart Complies with drug therapy Start: 01-31-2015 End: 02-01-2015 take 1 tablet by mouth once daily Aspirin 81 MG Tab.Chew Discontinued 81 mg PO DAILY@0800 January 30, 2015 11:00pm February 01, 2015 10:32am calcium ascorbate 500 mg oral tablet (8 sources) Start: 03-09-2024 take 1 tablet by mouth once daily Ascorbate Calcium (Vitamin C) 500 mg tablet Active 500 mg PO DAILY March 08, 2024 11:00pm SUPPLEMENT Complies with drug therapy cephalexin 500 mg oral capsule (4 sources) Cephalosporin Antibacterial Start: 01-01-2019 take 500 mg by mouth every twelve hours Cephalexin Active 500 MG PO EVERY 12 HOURS January 01, 2019 12:00am clopidogrel 75 mg oral tablet (6 sources) [id number] Platelet Inhibitor Start: 11-21-2024 take 1 tablet by mouth once daily Clopidogrel 75 mg tablet Active 75 mg PO DAILY November 20, 2024 11:00pm blood thinner Complies with drug therapy dexamethasone 4 mg oral tablet (5 sources) Corticosteroid Start: 04-23-2022 take 6 mg by mouth once daily at mealtime Dexamethasone Active 6 MG PO DAILY WITH MEALS 29 01April 23, 2022 12:00am First dose 04/24 docusate sodium 50 mg / sennosides, long term 8.6 mg oral tablet (2 sources) Start: 12-22-2024 Sennosides-Docusat e Sodium (Stimulant Laxative Plus) 8.6-50 mg Tablet Active 1 {tbl} PO TWICE A DAY 0 December 21, 2024 11:00pm Complies with drug therapy 60 actuat fluticasone propionate 0.232 mg/actuat / salmeterol xinafoate 0.014 mg/actuat dry powder inhaler (2 sources) Corticosteroid, beta2-Adrenergic Agonist Start: 12-22-2024 Fluticasone Propion-Salmeterol 232-14 mcg/actuation Aerosol Powdr Breath Activated Active 1 NMA INHALATION EVERY 12 HOURS 0 December 21, 2024 11:00pm Complies with drug therapy gabapentin 300 mg oral capsule (20 sources) Anti-epileptic Agent Start: 03-09-2024 take 1 capsule by mouth twice daily Gabapentin 300 mg capsule Active 300 mg PO TWICE A DAY March 09, 2024 7:57am NEUROPATHY Complies with drug therapy Start: 06-29-2023 End: 03-09-2024 take 1 capsule by mouth once daily Gabapentin 300 mg capsule Discontinued 300 mg PO DAILY June 29, 2023 1:40pm March 09, 2024 7:59am NEUROPATHY Start: 07-13-2018 End: 06-29-2023 take 1 capsule by mouth twice daily Gabapentin 300 MG capsule Discontinued 300 mg PO TWICE A DAY July 13, 2018 12:00am June 29, 2023 1:42pm NEUROPATHY Insulin Glargine-Yfgn (2 sources) Start: 03-08-2025 Start: 12-25-2024 End: 03-08-2025 Insulin Glargine-Yfgn 100 un it/mL (3 mL) Insulin Pen Discontinued 20 U SC AT BEDTIME 0 0 December 24, 2024 11:00pm March 08, 2025 12:39pm Insulin Glargine-Yfgn 100 unit/mL (3 mL) Insulin Pen (1 source) Start: 12-25-2024 Insulin Glargi ne-Yfgn 100 unit/mL (3 mL) Insulin Pen Active 20 U SC AT BEDTIME 0 December 25, 2024 12:00am 3 ml insulin lispro 100 unt/ml pen injector (8 sources) Insulin Analog Start: 03-08-2025 Start: 12-22-2024 End: 03-08-2025 Insulin Lispro (Humalog Kwik pen Insulin) 100 unit/mL Insulin Pen Discontinued 12 U SC THREE TIMES DAILY BEFORE MEALS 0 0 December 21, 2024 11:00pm March 08, 2025 12:39pm Start: 04-23-2022 Insulin Lispro (Humalog Kwikpen Insulin) 100 unit/mL Insulin Pen Active 0 UNIT SC BEFORE MEALS AND AT BEDTIME April 23, 2022 12:00am 24 hr isosorbide mononitrate 30 mg extended release oral tablet (20 sources) Nitrate Vasodilator Start: 03-08-2025 take 1 tablet by mouth once daily in the morning, then take 1 tablet by mouth every twenty-four hours Isosorbide Mononitrate 30 mg tablet extended release 24 hr Active 30 mg PO EVERY MORNING 90 March 07, 2025 11:00pm Complies with drug therapy Start: 07-09-2022 End: 03-15-2024 take 1 tablet by mouth once daily, then take 1 tablet by mouth every twenty-four hours Isosorbide Mononitrate 60 mg Tablet Extended Release 24 Hr Discontinued 60 mg PO DAILY July 09, 2022 12:00am March 15, 2024 3:36pm Start: 01-31-2015 take 60 mg by mouth once daily Isosorbide Mononitrate Active 60 MG PO DAILY January 30, 2015 11:00pm levothyroxine sodium 0.025 mg oral tablet (15 sources) l-Thyroxine Start: 07-09-2022 take 1 tablet by mouth once daily Levothyroxine 25 mcg Tablet Active 25 ug PO DAILY July 09, 2022 12:00am THYROID Complies with drug therapy losartan potassium 25 mg oral tablet (12 sources) Angiotensin 2 Receptor Marisa Start: 01-31-2015 take 25 mg by mouth once daily Losartan Active 25 MG PO DAILY January 30, 2015 11:00pm nitroglycerin 0.4 mg sublingual tablet (8 sources) Nitrate Vasodilator Start: 03-23-2024 Nitroglycerin 0.4 mg Tablet, Sublingual Active 0.4 mg SL Q5M as needed for Cardiac/Chest Pain 30 March 23, 2024 12:00am Complies with drug therapy pantoprazole 40 mg delayed release oral tablet (2 sources) Proton Pump Inhibitor Start: 12-22-2024 take 1 tablet by mouth once daily Pantoprazole 40 mg Tablet,Delayed Release (Dr/Ec) Active 40 mg PO DAILY 0 December 21, 2024 11:00pm Complies with drug therapy phenazopyridine hydrochloride 200 mg oral tablet (4 sources) Start: 01-01-2019 take 200 mg by mouth three times daily Phenazopyridine Active 200 MG PO THREE TIMES A DAY January 01, 2019 12:00am polysaccharide iron complex 150 mg oral capsule (8 sources) Start: 03-09-2024 Polysaccharide Iron Complex (Ferrex 150) 150 mg iron capsule Active 150 mg PO DAILY March 08, 2024 11:00pm SUPPLEMENT Complies with drug therapy 12 hr ranolazine 500 mg extended release oral tablet (8 sources) Anti-anginal Start: 09-13-2024 take 1 tablet by mouth twice daily Ranolazine 500 mg tablet extended release 12 hr Active 500 mg PO TWICE A DAY 60 September 12, 2024 11:00pm Heart Complies with drug therapy triamcinolone acetonide 1 mg/ml topical cream (1 source) Corticosteroid Start: 03-08-2025 Triamcinolone Acetonide 0.1 % cream Active 1 NMA TOPICAL TWICE A DAY as needed March 07, 2025 11:00pm Complies with drug therapy Umeclidinium (2 sources) Anticholinergic Start: 12-22-2024 take 62.5 ug by inhalation once daily Umeclidinium (Incruse Ellipta) 62.5 mcg/actuation Blister With Device Active 1 NMA INHALATION DAILY 0 December 21, 2024 11:00pm Complies with drug therapy Start: 12-22-2024 take 62.5 ug by inha lation once daily Umeclidinium (Incruse Ellipta) 62.5 mcg/actuation Blister With Device Active 1 NMA INHALATION DAILY 0 December 22, 2024 12:00am Valsartan/Hctz 320/12.5 (8 sources) Start: 06-23-2022 Valsartan/Hctz 320/12.5 Active 1 TABLET DAILY June 23, 2022 1:00am Valsartan/HCTZ 320/12.5 one tablet daily Start: 06-23-2022 Valsartan/Hctz 320/12.5 Active 1 TABLET DAILY June 23, 2022 12:00am Valsartan/HCTZ 320/12.5 one tablet daily vitamin b12 2 mg oral tablet (4 sources) Vitamin B12 Start: 01-31-2015 take 500 ug by mouth once daily as needed Cyanocobalamin (Vitamin B-12) Active 500 MCG PO DAILY NEEDED January 31, 2015 12:00am Completed/Discontinued Medications Medication Drug Class(es) Dates Sig (Normalized) Sig (Original) acetaminophen 500 mg oral tablet (8 sources) Start: 04-07-2024 End: 11-21-2024 take 2 tablets by mouth every six hours as needed for pain Acetaminophen 500 mg Tablet Discontinued 1000 mg PO EVERY 6 HOURS NEEDED as needed for Pain Score 1-10 0 0 April 07, 2024 12:00am November 21, 2024 1:20pm amLODIPine 5 mg oral tablet (16 sources) Dihydropyridine Calcium Channel Marisa Start: 03-23-2024 End: 03-08-2025 take 1 tablet by mouth once daily Amlodipine 5 mg Tablet Discontinued 5 mg PO DAILY 30 April 07, 2024 12:00am March 08, 2025 12:38pm BP atorvastatin 40 mg oral tablet (20 sources) HMG-CoA Reductase Inhibitor Start: 03-23-2024 End: 03-08-2025 take 1 tablet by mouth at bedtime Atorvastatin 40 mg Tablet Discontinued 40 mg PO AT BEDTIME 30 April 07, 2024 12:00am March 08, 2025 12:38pm Cholesterol Start: 01-31-2015 End: 03-15-2024 Atorvastatin 80 MG tablet Discontinued 40 mg PO AT BEDTIME January 30, 2015 11:00pm March 15, 2024 3:35pm CHOLESTEROL Start: 01-31-2015 take 40 mg by mouth at bedtime Atorvastatin Active 40 MG PO AT BEDTIME January 31, 2015 12:00am carvedilol 6.25 mg oral tablet (20 sources) alpha-Adrenergic Marisa, beta-Adrenergic Marisa Start: 03-23-2024 End: 03-08-2025 take 1 tablet by mouth twice daily Carvedilol 6.25 mg Tablet Discontinued 6.25 mg PO TWICE A DAY 60 30 0 April 07, 2024 12:00am March 08, 2025 12:38pm BP Start: 03-09-2024 End: 03-23-2024 take 3.125 mg by mouth twice daily Carvedilol (Coreg) 6.25 mg tablet Discontinued 3.125 mg PO TWICE A DAY March 09, 2024 7:57am March 23, 2024 11:26am BLOOD PRESSURE Start: 04-18-2022 End: 03-09-2024 take 1 tablet by mouth once daily Carvedilol (Coreg) 6.25 MG tablet Discontinued 6.25 mg PO DAILY April 18, 2022 10:30pm March 09, 2024 7:59am blood pressure Start: 07-14-2018 End: 04-18-2022 take 1 tablet by mouth twice daily Carvedilol (Coreg) 6.25 MG tablet Discontinued 6.25 mg PO TWICE A DAY 60 0 July 14, 2018 12:00am April 18, 2022 10:30pm Start: 01-31-2015 End: 07-14-2018 take 3.125 mg by mouth twice daily Carvedilol 6.25 MG tablet Discontinued 3.125 mg PO TWICE A DAY January 30, 2015 11:00pm July 14, 2018 3:20pm BLOOD PRESSURE Start: 01-31-2015 End: 07-14-2018 take 3.125 mg by mouth twice daily Carvedilol Discontinued 3.125 MG PO TWICE A DAY January 31, 2015 12:00am July 14, 2018 4:20pm cholecalciferol 0.05 mg oral capsule (20 sources) Vitamin D Start: 07-13-2018 End: 03-15-2024 Cholecalciferol (Vitamin D3) (Vitamin D3) 2,000 UNIT capsule Discontinued 5000 U PO DAILY July 13, 2018 12:00am March 15, 2024 3:35pm SUPPLEMENT Start: 07-13-2018 take 1 capsule by [facility] once daily Cholecalciferol (Vitamin D3) (Vitamin D3) 2,000 UNIT capsule Active 2000 UNIT PO DAILY July 13, 2018 12:00am doxepin hydrochloride 10 mg oral capsule (8 sources) Tricyclic Antidepressant Start: 04-07-2024 End: 11-21-2024 take 1 capsule by mouth at bedtime Doxepin 10 mg Capsule Discontinued 10 mg PO AT BEDTIME 30 30 0 April 07, 2024 12:00am November 21, 2024 1:19pm famotidine 40 mg oral tablet (20 sources) Histamine-2 Receptor Antagonist Start: 07-13-2018 End: 12-22-2024 take 1 tablet by mouth once daily Famotidine 40 MG tablet Discontinued 40 mg PO DAILY July 13, 2018 12:00am December 22, 2024 7:36pm GERD furosemide 40 mg oral tablet (20 sources) Loop Diuretic Start: 06-29-2023 End: 03-08-2025 take 1 tablet by mouth twice daily Furosemide 40 mg Tablet Discontinued 40 mg PO TWICE DAILY 60 30 0 April 07, 2024 12:00am March 08, 2025 12:38pm Edema Start: 06-29-2023 take 1 mg by mouth twice daily Furosemide Active MG PO TWICE A DAY June 29, 2023 2:40pm Start: 05-19-2023 End: 06-29-2023 take 1 mg by mouth once daily Furosemide 40 mg tablet Discontinued mg PO DAILY May 19, 2023 12:00am June 29, 2023 1:42pm Start: 05-19-2023 End: 06-29-2023 take 1 mg by mouth once daily Furosemide Discontinued MG PO DAILY May 19, 2023 1:00am June 29, 2023 2:42pm glimepiride 4 mg oral tablet (20 sources) Sulfonylurea Start: 06-23-2022 End: 12-22-2024 take 1 tablet by mouth once daily Glimepiride 4 mg Tablet Discontinued 4 mg PO DAILY June 23, 2022 12:00am December 22, 2024 7:37pm DIABETES Start: 01-31-2015 End: 04-23-2022 take 1 tablet by mouth once daily Glimepiride 4 MG tablet Discontinued 4 mg PO DAILY January 30, 2015 11:00pm April 23, 2022 11:56am DIABETES hydroCHLOROthiazide 12.5 mg / valsartan 320 mg oral tablet (8 sources) Thiazide Diuretic, Angiotensin 2 Receptor Marisa Start: 03-15-2024 End: 03-23-2024 Valsartan-Hydrochlorothiazid e 320-12.5 mg tablet Discontinued 1 {tbl} PO DAILY March 14, 2024 11:00pm March 23, 2024 11:35am BLOOD PRESSURE 3 ml insulin degludec 100 unt/ml pen injector (7 sources) Insulin Analog Start: 12-05-2024 End: 12-22-2024 Insulin Degludec (Tresiba Flextouch U-100) 100 unit/mL (3 mL) insulin pen Discontinued 15 U SC AT BEDTIME 15 0 December 04, 2024 11:00pm December 22, 2024 7:37pm Diabetes Start: 11-21-2024 End: 12-05-2024 Insulin Degludec (Tresiba Fl extouch U-200) 200 unit/mL (3 mL) insulin pen Discontinued 40 U SC TWICE A DAY November 20, 2024 11:00pm December 05, 2024 3:15pm diabetes Start: 09-13-2024 End: 11-21-2024 Insulin Degludec (Tresiba Fl extouch U-100) 100 unit/mL (3 mL) insulin pen Discontinued 40 U SC TWICE A DAY September 13, 2024 8:54am November 21, 2024 1:20pm DIABETES Start: 03-23-2024 End: 09-13-2024 Insulin Degludec (Tresiba Fl extouch U-100) 100 unit/mL (3 mL) insulin pen Discontinued 15 U SC TWICE A DAY 15 1 March 23, 2024 11:33am September 13, 2024 8:55am DIABETES Start: 03-15-2024 End: 03-23-2024 Insulin Degludec (Tresiba Fl extouch U-100) 100 unit/mL (3 mL) insulin pen Discontinued 20 U SC TWICE A DAY March 14, 2024 11:00pm March 23, 2024 11:33am DIABETES Start: 03-09-2024 End: 03-15-2024 Insulin Degludec (Tresiba U- 100 Insulin) 100 unit/mL solution Discontinued 20 U SC TWICE A DAY March 08, 2024 11:00pm March 15, 2024 3:35pm Start: 02-22-2022 End: 03-09-2024 Insulin Degludec (Tresiba Fl extouch U-100) 100 unit/mL (3 mL) insulin pen Discontinued 40 U SC DAILY February 21, 2022 11:00pm March 09, 2024 7:58am diabetes On Hold: Resume on 04/30/22. Insulin Degludec (Tresiba Flextouch U-100) 100 unit/mL (3 mL) insulin pen (20 sources) Start: 12-05-2024 End: 12-22-2024 Insulin Degludec (Tresiba Flextouch U-100) 100 unit/mL (3 mL) insulin pen Discontinued 15 U SC AT BEDTIME 15 0 December 05, 2024 12:00am December 22, 2024 8:37pm Diabetes Start: 09-13-2024 End: 11-21-2024 Insulin Degludec (Tresiba Fl extouch U-100) 100 unit/mL (3 mL) insulin pen Discontinued 40 U SC TWICE A DAY September 13, 2024 9:54am November 21, 2024 2:20pm DIABETES Start: 09-13-2024 Insulin Deglud ec (Tresiba Flextouch U-100) 100 unit/mL (3 mL) insulin pen Active 40 U SC TWICE A DAY September 13, 2024 9:54am Start: 03-23-2024 End: 09-13-2024 Insulin Degludec (Tresiba Fl extouch U-100) 100 unit/mL (3 mL) insulin pen Discontinued 15 U SC TWICE A DAY 15 March 23, 2024 12:33pm September 13, 2024 9:55am DIABETES Start: 03-23-2024 End: 09-13-2024 Insulin Degludec (Tresiba Fl extouch U-100) 100 unit/mL (3 mL) insulin pen Discontinued 15 U SC TWICE A DAY March 23, 2024 12:33pm September 13, 2024 9:55am Start: 03-15-2024 End: 03-23-2024 Insulin Degludec (Tresiba Fl extouch U-100) 100 unit/mL (3 mL) insulin pen Discontinued 20 U SC TWICE A DAY March 15, 2024 12:00am March 23, 2024 12:33pm DIABETES Start: 03-15-2024 End: 03-23-2024 Insulin Degludec (Tresiba Fl extouch U-100) 100 unit/mL (3 mL) insulin pen Discontinued 20 U SC TWICE A DAY March 15, 2024 12:00am March 23, 2024 12:33pm Start: 02-22-2022 End: 03-09-2024 Insulin Degludec (Tresiba Fl extouch U-100) 100 unit/mL (3 mL) insulin pen Discontinued 40 U SC DAILY February 22, 2022 12:00am March 09, 2024 8:58am diabetes On Hold: Resume on 04/30/22. Start: 02-22-2022 End: 03-09-2024 Insulin Degludec (Tresiba Fl extouch U-100) 100 unit/mL (3 mL) insulin pen Discontinued 40 U SC DAILY February 22, 2022 12:00am March 09, 2024 8:58am On Hold: Resume on 04/30/22. Start: 02-22-2022 Insulin Deglud ec (Tresiba Flextouch U-100) 100 unit/mL (3 mL) insulin pen Active 40 UNIT SC DAILY February 22, 2022 12:00am Start: 02-22-2022 Insulin Deglud ec (Tresiba Flextouch U-100) 100 unit/mL (3 mL) insulin pen Active 40 UNIT SC DAILY February 21, 2022 11:00pm Insulin Degludec (Tresiba Flextouch U-200) 200 unit/mL (3 mL) insulin pen (5 sources) Start: 11-21-2024 End: 12-05-2024 Insulin Degludec (Tresiba Flextouch U-200) 200 unit/mL (3 mL) insulin pen Discontinued 40 U SC TWICE A DAY November 21, 2024 12:00am December 05, 2024 4:15pm diabetes Start: 11-21-2024 Insulin Deglud ec (Tresiba Flextouch U-200) 200 unit/mL (3 mL) insulin pen Active 40 U SC TWICE A DAY November 21, 2024 12:00am Insulin Degludec (Tresiba U-100 Insulin) 100 unit/mL solution (7 sources) Start: 03-09-2024 End: 03-15-2024 Insulin Degludec (Tresiba U-100 Insulin) 100 unit/mL solution Discontinued 20 U SC TWICE A DAY March 09, 2024 12:00am March 15, 2024 4:35pm levoFLOXacin 500 mg oral tablet (8 sources) Quinolone Antimicrobial Start: 03-23-2024 End: 04-07-2024 take 1 tablet by mouth once daily Levofloxacin 500 mg tablet Discontinued 500 mg PO DAILY 5 0 March 23, 2024 12:00am April 07, 2024 9:46pm pneomonia, uti magnesium citrate 58.2 mg/ml oral solution (2 sources) Start: 12-22-2024 End: 03-08-2025 take 1 mL by mouth once daily as needed for constipation Magnesium Citrate Solution Discontinued 300 mL PO DAILY as needed for Constipation 0 0 December 21, 2024 11:00pm March 08, 2025 12:39pm melatonin 10 mg oral tablet (20 sources) Start: 06-23-2022 End: 04-07-2024 take 1 tablet by mouth at bedtime Melatonin 10 mg Tablet Discontinued 10 mg PO AT BEDTIME June 23, 2022 12:00am April 07, 2024 9:46pm SLEEP Start: 07-13-2018 take 10 mg by mouth once daily Melatonin Active 10 MG PO DAILY July 13, 2018 1:00am tamsulosin hydrochloride 0.4 mg oral capsule (16 sources) alpha-Adrenergic Marisa Start: 03-23-2024 End: 03-08-2025 take 1 capsule by mouth once daily Tamsulosin 0.4 mg Capsule Discontinued 0.4 mg PO DAILY@1730 30 30 0 April 07, 2024 12:00am March 08, 2025 12:39pm Urinary Retention terazosin 2 mg oral tablet (19 sources) alpha-Adrenergic Marisa Start: 07-09-2022 End: 03-15-2024 take 1 tablet by mouth at bedtime Terazosin 2 mg Tablet Discontinued 2 mg PO AT BEDTIME July 09, 2022 12:00am March 15, 2024 3:36pm Start: 01-31-2015 take 2 mg by mouth at bedtime Terazosin Active 2 MG PO AT BEDTIME January 31, 2015 12:00am ticagrelor 90 mg oral tablet (8 sources) Start: 03-23-2024 End: 04-07-2024 take 1 tablet by mouth twice daily Ticagrelor (Brilinta) 90 mg Tablet Discontinued 90 mg PO TWICE A DAY 60 2 March 23, 2024 12:00am April 07, 2024 9:47pm acute coronary syndrome traZODone hydrochloride 50 mg oral tablet (6 sources) Serotonin Reuptake Inhibitor Start: 11-21-2024 End: 03-08-2025 Trazodone 50 mg tablet Discontinued 25 mg PO AT BEDTIME November 20, 2024 11:00pm March 08, 2025 12:39pm sleep Valsartan/Hctz 320/12.5 tablet (8 sources) Start: 06-23-2022 End: 03-15-2024 Valsartan/Hctz 320/12.5 tablet Discontinued 1 {tbl} DAILY June 23, 2022 12:00am March 15, 2024 2:56pm Valsartan/HCTZ 320/12.5 one tablet daily Start: 06-23-2022 End: 03-15-2024 Valsartan/Hctz 320/12.5 tabl et Discontinued 1 {tbl} DAILY June 23, 2022 1:00am March 15, 2024 3:56pm Valsartan/HCTZ 320/12.5 one tablet daily Problems Active Problems Problem Classification Problem Date Documented Da te Episodic/Chronic Acute myocardial infarction (9 sources) Myocardial infarction; Translations: [Non-ST elevation (NSTEMI) myocardial infarction] Onset: 03-26-2024 Chronic Cardiac dysrhythmias (20 sources) Ventricular premature beats; Translations: [Ventricular premature depolarization] 07-14-2018 Chronic Chronic kidney disease (20 sources) Chronic kidney disease stage 3; Translations: [Stage 3 chronic kidney disease] 07-13-2018 Chronic Chronic obstructive pulmonary disease and bronchiectasis (20 sources) Acute exacerbation of chronic obstructive airways disease; Translations: [Chronic obstructive pulmonary disease with (acute) exacerbation] Chronic Congestive heart failure; nonhypertensive (14 sources) Heart failure with normal ejection fraction; Translations: [Unspecified diastolic (congestive) heart failure] Onset: 5 03-09-2024 Chronic Coronary atherosclerosis and other heart disease (20 sources) Coronary arteriosclerosis; 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] Onset: 5 03-09-2024 Chronic Deficiency and other anemia (20 sources) Anemia; Translations: [Anemia, unspecified] 07-13-2018 Episodic Deficiency and other anemia (8 sources) Iron deficiency anemia; Translations: [Iron deficiency anemia, unspecified] 03-23-2024 Episodic Deficiency and other anemia (6 sources) Chronic anemia; Translations: [Anemia, unspecified] 11-21-2024 Episodic Diabetes mellitus with complications (16 sources) Polyneuropathy due to diabetes mellitus; Translations: [Type 2 diabetes mellitus with diabetic polyneuropathy] Onset: 5 03-09-2024 Chronic Diabetes mellitus without complication (20 sources) Type 2 diabetes mellitus; Translations: [Type 2 diabetes mellitus without complications] 07-13-2018 Chronic Disorders of lipid metabolism (20 sources) Hyperlipidemia; Translations: [Hyperlipidemia, unspecified] 07-13-2018 Chronic E Codes: Fall (20 sources) Fall; Translations: [Unspecified fall, initial encounter] 03-02-2022 Episodic Esophageal disorders (8 sources) Gastroesophageal reflux disease; Translations: [Gastro-esophageal reflux disease without esophagitis] 03-09-2024 Chronic Essential hypertension (20 sources) Hypertensive disorder; Translations: [Essential (primary) hypertension] Onset: 07-13-2018 Chronic Gastrointestinal hemorrhage (6 sources) Gastrointestinal hemorrhage; Translations: [Gastrointestinal hemorrhage, unspecified] 11-21-2024 Episodic Hyperplasia of prostate (4 sources) Benign prostatic hyperplasia; Translations: [Benign prostatic hyperplasia without lower urinary tract symptoms] 12-06-2024 Chronic Malaise and fatigue (10 sources) Asthenia; Translations: [Other malaise] 03-23-2024 Episodic Nonspecific chest pain (20 sources) Chest pain; Translations: [Chest pain, unspecified] 07-13-2018 Episodic Nutritional deficiencies (8 sources) Vitamin D deficiency; Translations: [Vitamin D deficiency, unspecified] 03-09-2024 Chronic Open wounds of extremities (7 sources) Open wound of finger; Translations: [Unspecified open wound of unspecified finger without damage to nail, initial encounter] 11-10-2024 Episodic Other circulatory disease (19 sources) Carotid bruit; Translations: [Other specified symptoms and signs involving the circulatory and respiratory systems] 09-13-2024 Episodic Other connective tissue disease (8 sources) Neuropathic pain; Translations: [Neuralgia and neuritis, unspecified] 03-23-2024 Episodic Other endocrine disorders (20 sources) Hypoglycemia; Translations: [Hypoglycemia, unspecified] 05-01-2022 Chronic Other endocrine disorders (2 sources) Hypoglycemia, unspecified; Translations: [Hypoglycemia, unspecified] Chronic Other gastrointestinal disorders (3 sources) Constipation; Translations: [Constipation, unspecified] 12-02-2024 Episodic Other injuries and conditions due to external causes (7 sources) Closed injury of head; Translations: [Unspecified injury of head, initial encounter] 11-10-2024 Episodic Other lower respiratory disease (2 sources) Hypoxia; Translations: [Hypoxemia] Episodic Other lower respiratory disease (2 sources) Hypoxemia; Translations: [Hypoxemia] Episodic Other lower respiratory disease (8 sources) Dyspnea; Translations: [Shortness of breath] 03-09-2024 Episodic Other lower respiratory disease (8 sources) Hemoptysis; Translations: [Hemoptysis] 03-26-2024 Episodic Other lower respiratory disease (6 sources) History of chronic obstructive airway disease; Translations: [Personal history of other diseases of the respiratory system] 11-21-2024 Episodic Other lower respiratory disease (1 source) Shortness of breath; Translations: [Shortness of breath] Onset: Episodic Other nervous system disorders (10 sources) Disorder of brain; Translations: [Encephalopathy, unspecified] 12-02-2024 Chronic Other nervous system disorders (1 source) Encephalopathy, unspecified; Translations: [Encephalopathy, unspecified] Onset: Chronic Other non-traumatic joint disorders (7 sources) Hip pain; Translations: [Pain in right hip] 11-10-2024 Episodic Other nutritional; endocrine; and metabolic disorders (20 sources) Obese class I; Translations: [Obesity, unspecified] 07-13-2018 Chronic Other nutritional; endocrine; and metabolic disorders (4 sources) Morbid obesity; Translations: [Morbid (severe) obesity due to excess calories] 12-06-2024 Chronic Other nutritional; endocrine; and metabolic disorders (6 sources) H/O: diabetes mellitus; Translations: [Personal history of other endocrine, nutritional and metabolic disease] 11-21-2024 Episodic Other skin disorders (8 sources) Subungual hematoma 03-02-2022 Episodic Pneumonia (except that caused by tuberculosis or sexually transmitted disease) (12 sources) Pneumonia; Translations: [Pneumonia, unspecified organism] Episodic Residual codes; unclassified (8 sources) Insomnia; Translations: [Insomnia, unspecified] 03-23-2024 Episodic Residual codes; unclassified (8 sources) Edema; Translations: [Edema, unspecified] 11-30-2024 Episodic Residual codes; unclassified (3 sources) Clouded consciousness; Translations: [Disorientation, unspecified] 12-02-2024 Episodic Respiratory failure; insufficiency; arrest (adult) (20 sources) Chronic hypoxemic respiratory failure; Translations: [Chronic respiratory failure with hypoxia] 05-19-2023 Chronic Respiratory failure; insufficiency; arrest (adult) (20 sources) Acute hypoxemic respiratory failure; Translations: [Acute respiratory failure with hypoxia] Episodic Screening and history of mental health and substance abuse codes (20 sources) Ex-tobacco user; Translations: [Personal history of nicotine dependence] 07-13-2018 Episodic Sprains and strains (20 sources) Sprain of ligament of finger; Translations: [Unspecified sprain of unspecified finger, initial encounter] 03-02-2022 Episodic Superficial injury; contusion (20 sources) Injury of forehead; Translations: [Contusion of other part of head, initial encounter] 11-10-2024 Episodic Thyroid disorders (10 sources) Hypothyroidism; Translations: [Hypothyroidism, unspecified] 03-09-2024 Chronic Unclassified (20 sources) painful soft tissue mass back 07-13-2018 Comment on above: 1.5 cm infected pain ful soft tissue mass right upper lateral back by the shoulder, and 1.5 cm painful soft tissue mass right posterior axillary/lateral back area, superior, and 1 cm painful soft tissue mass right posterior axillary/lateral back area, inferior. Unclassified (1 source) Atherosclerotic heart disease of [place] coronary artery with refractory angina pectoris; Translations: [Atherosclerotic heart disease of [place] coronary artery with refractory angina pectoris] Onset: Viral infection (20 sources) COVID-19; Translations: [Pneumonia due to COVID-19 virus] Episodic Past or Other Problems Problem Classification Problem Date Documented Da te Episodic/Chronic Acute and unspecified renal failure (9 sources) Acute renal failure syndrome; Translations: [Acute kidney failure, unspecified] Onset: 07-16-2024 03-26-2024 Episodic Coronary atherosclerosis and other heart disease (19 sources) Stented coronary artery; Translations: [Presence of coronary angioplasty implant and graft] Onset: 03-16-2024 04-08-2024 Episodic Comment on above: 3.5 X 12 [place] [facility] [facility] BECK to Proximal CX 03/16/2024 Deficiency and other anemia (1 source) Anemia, unspecified; Translations: [Anemia, unspecified] Onset: 05-12-2024 Episodic Other circulatory disease (1 source) Other specified symptoms and signs involving the circulatory and respiratory systems; Translations: [Other specified symptoms and signs involving the circulatory and respiratory systems] Onset: 10-03-2024 Episodic Other injuries and conditions due to external causes (1 source) Unspecified injury of head, initial encounter; Translations: [Unspecified injury of head, initial encounter] Onset: 11-15-2024 Episodic Other screening for suspected conditions (not mental disorders or infectious disease) (20 sources) D-dimer above reference range; Translations: [Other specified abnormal findings of blood chemistry] Onset: 11-26-2024 Episodic Pulmonary heart disease (1 source) Other pulmonary embolism without acute cor pulmonale; Translations: [Other pulmonary embolism without acute cor pulmonale] Onset: 04-07-2024 Episodic Residual codes; unclassified (1 source) Disorientation, unspecified; Translations: [Disorientation, unspecified] Onset: 12-15-2024 Episodic Unclassified (16 sources) Subungual hematoma; Translations: [Subungual hematoma] 03-02-2022 Urinary tract infections (9 sources) Urinary tract infectious disease; Translations: [Urinary tract infection, site not specified] Onset: 05-23-2024 04-08-2024 Episodic Results Test Name Value Interpretation Reference Range Facility Cardiology Visit Reporton Cardiology Visit Report Normal [facility] Anion gap in Serum or Plasma Ordered By: Geo Bartholomew on 01-04-2025 Anion gap [Moles/Vol] 11 mmol/L 09-29 [facility] BUN/creatinine ratioOrdered By: Geo Bartholomew on 01-04-2025 Urea nitrogen/Creatinine [Mass ratio] 13.8 mg/mg 03-06 [facility] Basic Metabolic Profile (BMP )on 01-04-2025 BUN/CRE 13.8 RATIO Normal 03-06 [facility] Comment on above: Order Comment: 128.2 Performed By: #### L 100.0500, L500.2500 ####[facility] [address] [place], [address] GAP 11 Normal 5-15 [facility] Comment on above: Order Comment: 128.2 Performed By: #### L 100.0500, L500.2500 ####[facility] [address] [place], [address] Potassium [Moles/Vol] 3.9 mmol/L Normal 3.3-5.1 [facility] Comment on above: Order Comment: 128.2 Performed By: #### L 100.0500, L500.2500 ####[facility] [address] [place], [address] Basic Metabolic Profile (BMP )Ordered By: Geo Bartholomew on 01-04-2025 Calcium [Mass/Vol] 8.9 mg/dL Normal 7.6-11.0 [facility] Comment on above: Order Comment: 128.2 Performed By: #### L 100.0500, L500.2500 ####[facility] [address] [place], [address] Chloride [Moles/Vol] 101 mmol/L Normal 98-108 [facility] Comment on above: Order Comment: 128.2 Performed By: #### L 100.0500, L500.2500 ####[facility] [address] [place], [address] CO2 [Moles/Vol] 27.4 mmol/L Normal 21.0-32.0 [facility] Comment on above: Order Comment: 128.2 Performed By: #### L 100.0500, L500.2500 ####[facility] [address] [place], [address] Creatinine [Mass/Vol] 2.29 mg/dL High 0.70-1.20 [facility] Comment on above: Order Comment: 128.2 Performed By: #### L 100.0500, L500.2500 ####[facility] [address] [place], [address] GFR/1.73 sq M.predicted among non-blacks MDRD (S/P/Bld) [Vol rate/Area] 27 mL/min/{1.73_m2} Low >60 [facility] Comment on above: Order Comment: 128.2 Result Comment: mL/m in/1.73m2 CKD-EPI Creatinine Equation (2020) Performed By: #### L 100.0500, L500.2500 ####[facility] [address] [place], [address] mL/min/1.73m2 CKD-EP I Creatinine Equation (2020) Glucose [Mass/Vol] 242 mg/dL High 70-99 [facility] Comment on above: Order Comment: 128.2 Performed By: #### L 100.0500, L500.2500 ####[facility] [address] [place], [address] Sodium [Moles/Vol] 139 mmol/L Normal 133-145 [facility] Comment on above: Order Comment: 128.2 Performed By: #### L 100.0500, L500.2500 ####[facility] [address] [place], [address] Urea nitrogen [Mass/Vol] 32 mg/dL High 4-19 [facility] Comment on above: Order Comment: 128.2 Performed By: #### L 100.0500, L500.2500 ####[facility] [address] [place], [address] CBC-Complete Blood Cnt No Di ffon 01-04-2025 Erythrocyte distribution width (RBC) [Ratio] 13.3 % Normal 11.6-14.6 [facility] Comment on above: Order Comment: 128.2 Performed By: #### L 100.0500, L500.2500 ####[facility] [address] [place], [address] Hematocrit (Bld) [Volume fraction] 28.2 % Low 40-54 [facility] Comment on above: Order Comment: 128.2 Performed By: #### L 100.0500, L500.2500 ####[facility] [address] [place], [address] Hemoglobin (Bld) [Mass/Vol] 9.3 g/dL Low 13.0-16.5 [facility] Comment on above: Order Comment: 128.2 Performed By: #### L 100.0500, L500.2500 ####[facility] [address] [place], [address] MCH (RBC) [Entitic mass] 31.2 pg Normal 27.0-32.0 [facility] Comment on above: Order Comment: 128.2 Performed By: #### L 100.0500, L500.2500 ####[facility] [address] [place], [address] MCHC (RBC) [Mass/Vol] 33.0 g/dL Normal 32-36 [facility] Comment on above: Order Comment: 128.2 Performed By: #### L 100.0500, L500.2500 ####[facility] [address] [place], [address] MCV (RBC) [Entitic vol] 94.6 fL High 80-94 [facility] Comment on above: Order Comment: 128.2 Performed By: #### L 100.0500, L500.2500 ####[facility] [address] [place], [address] Platelet mean volume (Bld) [Entitic vol] 10.4 fL Normal 6.2-12.0 [facility] Comment on above: Order Comment: 128.2 Performed By: #### L 100.0500, L500.2500 ####[facility] [address] [place], [address] Platelets (Bld) [#/Vol] 176 10*3/uL Normal 150-450 [facility] Comment on above: Order Comment: 128.2 Performed By: #### L 100.0500, L500.2500 ####[facility] [address] [place], [address] RBC (Bld) [#/Vol] 2.98 10*6/uL Low 4.6-6.2 [facility] Comment on above: Order Comment: 128.2 Performed By: #### L 100.0500, L500.2500 ####[facility] [address] [place], [address] RDW SD 46.1 fl High 35.1-43.9 [facility] Comment on above: Order Comment: 128.2 Performed By: #### L 100.0500, L500.2500 ####[facility] [address] [place], [address] WBC (Bld) [#/Vol] 7.1 10*3/uL Normal 4.4-11.0 [facility] Comment on above: Order Comment: 128.2 Performed By: #### L 100.0500, L500.2500 ####[facility] [address] [place], [address] Erythrocyte distribution wid th ratioOrdered By: Geo Bartholomew on 01-04-2025 Erythrocyte distribution width (RBC) [Ratio] 13.3 % 11.6-14.6 [facility] Erythrocyte distribution wid th standard deviationOrdered By: Geo Bartholomew on 01-04-2025 Erythrocyte distribution width (RBC) [Ratio] 46.1 fl High 35.1-43.9 [facility] Hematocrit Auto (Bld) [Volum e fraction]Ordered By: Geo Bartholomew on 01-04-2025 Hematocrit (Bld) [Volume fraction] 28.2 % Low 40-54 [facility] Hemoglobin measurementOrdere d By: Geo Bartholomew on 01-04-2025 Hemoglobin (Bld) [Mass/Vol] 9.3 g/dL Low 13.0-16.5 [facility] MCV (mean corpuscular volume ) determinationOrdered By: Geo Bartholomew on 01-04-2025 MCV (RBC) [Entitic vol] 94.6 fL High 80-94 [facility] Mean corpuscular hemoglobin (MCH) determinationOrdered By: Geo Bartholomew on 01-04-2025 MCH (RBC) [Entitic mass] 31.2 pg 27.0-32.0 [facility] Mean corpuscular hemoglobin concentration (MCHC) determinationOrdered By: Geo Bartholomew on 01-04-2025 MCHC (RBC) [Mass/Vol] 33.0 g/dL 32-36 [facility] Mean platelet volume determi nationOrdered By: Geo Bartholomew on 01-04-2025 Platelet mean volume (Bld) [Entitic vol] 10.4 fL 6.2-12.0 [facility] Platelet countOrdered By: Judy Bartholomew on 01-04-2025 Platelets (Bld) [#/Vol] 176 10*3/uL 150-450 [facility] Potassium measurement (mass/ volume)Ordered By: Geo Bartholomew on 01-04-2025 Potassium (Unsp spec) [Mass/Vol] 3.9 mmol/L 3.3-5.1 [facility] RBC Auto (Bld) [#/Vol]Ordere d By: Geo Bartholomew on 01-04-2025 RBC (Bld) [#/Vol] 2.98 10*6/uL Low 4.6-6.2 [facility] White blood cell (WBC) count Ordered By: Geo Bartholomew on 01-04-2025 WBC (Bld) [#/Vol] 7.1 10*3/uL 4.4-11.0 [facility] Basic Metabolic Profile (BMP )on 01-03-2025 BUN Normal - [facility] Comment on above: Result Comment: Canc elled via OM: Order cancelled - Patient discharged Performed By: #### L 100.0100, L500.2500 ####[facility] [address] [place], [address] BUN/CRE Normal - [facility] Comment on above: Result Comment: Canc elled via OM: Order cancelled - Patient discharged Performed By: #### L 100.0100, L500.2500 ####[facility] [address] [place], [address] Calcium Normal 7.6-11.0 [facility] Comment on above: Result Comment: Canc elled via OM: Order cancelled - Patient discharged Performed By: #### L 100.0100, L500.2500 ####[facility] [address] [place], [address] CL Normal 98-108 [facility] Comment on above: Result Comment: Canc elled via OM: Order cancelled - Patient discharged Performed By: #### L 100.0100, L500.2500 ####[facility] [address] [place], [address] CO2 Normal 21.0-32.0 [facility] Comment on above: Result Comment: Canc elled via OM: Order cancelled - Patient discharged Performed By: #### L 100.0100, L500.2500 ####[facility] [address] [place], [address] CREAT,SERUM Normal 0.70-1.20 [facility] Comment on above: Result Comment: Canc elled via OM: Order cancelled - Patient discharged Performed By: #### L 100.0100, L500.2500 ####[facility] [address] [place], [address] eGFR Normal >60 [facility] Comment on above: Result Comment: Canc elled via OM: Order cancelled - Patient discharged Performed By: #### L 100.0100, L500.2500 ####[facility] [address] [place], [address] GAP Normal 5-15 [facility] Comment on above: Result Comment: Canc elled via OM: Order cancelled - Patient discharged Performed By: #### L 100.0100, L500.2500 ####[facility] [address] [place], [address] GLU Normal 70-99 [facility] Comment on above: Result Comment: Canc elled via OM: Order cancelled - Patient discharged Performed By: #### L 100.0100, L500.2500 ####[facility] [address] [place], [address] Potassium Normal 3.3-5.1 [facility] Comment on above: Result Comment: Canc elled via OM: Order cancelled - Patient discharged Performed By: #### L 100.0100, L500.2500 ####[facility] [address] [place], [address] Basic Metabolic Profile (BMP) Normal 133-145 [facility] Comment on above: Result Comment: Canc elled via OM: Order cancelled - Patient discharged Performed By: #### L 100.0100, L500.2500 ####[facility] [address] [place], [address] CBC W/Diff, Automatedon 08-1 Absolute Neut Normal 2.0-7.7 [facility] Comment on above: Result Comment: Canc elled via OM: Order cancelled - Patient discharged Performed By: #### L 100.0100, L500.2500 ####[facility] [address] [place], [address] HCT Normal 40-54 [facility] Comment on above: Result Comment: Canc elled via OM: Order cancelled - Patient discharged Performed By: #### L 100.0100, L500.2500 ####[facility] [address] [place], [address] HGB Normal 13.0-16.5 [facility] Comment on above: Result Comment: Canc elled via OM: Order cancelled - Patient discharged Performed By: #### L 100.0100, L500.2500 ####[facility] [address] [place], [address] MCH Normal 27.0-32.0 [facility] Comment on above: Result Comment: Canc elled via OM: Order cancelled - Patient discharged Performed By: #### L 100.0100, L500.2500 ####[facility] [address] [place], [address] MCHC Normal 32-36 [facility] Comment on above: Result Comment: Canc elled via OM: Order cancelled - Patient discharged Performed By: #### L 100.0100, L500.2500 ####[facility] [address] [place], [address] MCV Normal 80-94 [facility] Comment on above: Result Comment: Canc elled via OM: Order cancelled - Patient discharged Performed By: #### L 100.0100, L500.2500 ####[facility] [address] [place], [address] NEUT% Normal 47-70 [facility] Comment on above: Result Comment: Canc elled via OM: Order cancelled - Patient discharged Performed By: #### L 100.0100, L500.2500 ####[facility] [address] [place], [address] PLT Normal 150-450 [facility] Comment on above: Result Comment: Canc elled via OM: Order cancelled - Patient discharged Performed By: #### L 100.0100, L500.2500 ####[facility] [address] [place], [address] RBC Normal 4.6-6.2 [facility] Comment on above: Result Comment: Canc elled via OM: Order cancelled - Patient discharged Performed By: #### L 100.0100, L500.2500 ####[facility] [address] [place], [address] RDW CV Normal 11.6-14.6 [facility] Comment on above: Result Comment: Canc elled via OM: Order cancelled - Patient discharged Performed By: #### L 100.0100, L500.2500 ####[facility] [address] [place], [address] RDW SD Normal 35.1-43.9 [facility] Comment on above: Result Comment: Canc elled via OM: Order cancelled - Patient discharged Performed By: #### L 100.0100, L500.2500 ####[facility] [address] [place], [address] WBC Normal 4.4-11.0 [facility] Comment on above: Result Comment: Canc elled via OM: Order cancelled - Patient discharged Performed By: #### L 100.0100, L500.2500 ####[facility] [address] [place], [address] Basic Metabolic Profile (BMP )on 12-27-2024 BUN Normal 4-19 [facility] Comment on above: Result Comment: Canc elled via OM: Order cancelled - Patient discharged Performed By: #### L 500.2500, L100.0100 ####[facility] [address] [place], [address] BUN/CRE Normal 10-20 [facility] Comment on above: Result Comment: Canc elled via OM: Order cancelled - Patient discharged Performed By: #### L 500.2500, L100.0100 ####[facility] [address] [place], [address] Calcium Normal 7.6-11.0 [facility] Comment on above: Result Comment: Canc elled via OM: Order cancelled - Patient discharged Performed By: #### L 500.2500, L100.0100 ####[facility] [address] [place], [address] CL Normal 98-108 [facility] Comment on above: Result Comment: Canc elled via OM: Order cancelled - Patient discharged Performed By: #### L 500.2500, L100.0100 ####[facility] [address] [place], [address] CO2 Normal 21.0-32.0 [facility] Comment on above: Result Comment: Canc elled via OM: Order cancelled - Patient discharged Performed By: #### L 500.2500, L100.0100 ####[facility] [address] [place], [address] CREAT,SERUM Normal 0.70-1.20 [facility] Comment on above: Result Comment: Canc elled via OM: Order cancelled - Patient discharged Performed By: #### L 500.2500, L100.0100 ####[facility] [address] [place], [address] eGFR Normal >60 [facility] Comment on above: Result Comment: Canc elled via OM: Order cancelled - Patient discharged Performed By: #### L 500.2500, L100.0100 ####[facility] [address] [place], [address] GAP Normal 5-15 [facility] Comment on above: Result Comment: Canc elled via OM: Order cancelled - Patient discharged Performed By: #### L 500.2500, L100.0100 ####[facility] [address] [place], [address] GLU Normal 70-99 [facility] Comment on above: Result Comment: Canc elled via OM: Order cancelled - Patient discharged Performed By: #### L 500.2500, L100.0100 ####[facility] [address] [place], [address] Potassium Normal 3.3-5.1 [facility] Comment on above: Result Comment: Canc elled via OM: Order cancelled - Patient discharged Performed By: #### L 500.2500, L100.0100 ####[facility] [address] [place], [address] Basic Metabolic Profile (BMP) Normal 133-145 [facility] Comment on above: Result Comment: Canc elled via OM: Order cancelled - Patient discharged Performed By: #### L 500.2500, L100.0100 ####[facility] [address] [place], [address] CBC W/Diff, Automatedon - Absolute Neut Normal 2.0-7.7 [facility] Comment on above: Result Comment: Canc elled via OM: Order cancelled - Patient discharged Performed By: #### L 500.2500, L100.0100 ####[facility] [address] [place], [address] HCT Normal 40-54 [facility] Comment on above: Result Comment: Canc elled via OM: Order cancelled - Patient discharged Performed By: #### L 500.2500, L100.0100 ####[facility] [address] [place], [address] HGB Normal 13.0-16.5 [facility] Comment on above: Result Comment: Canc elled via OM: Order cancelled - Patient discharged Performed By: #### L 500.2500, L100.0100 ####[facility] [address] [place], [address] MCH Normal 27.0-32.0 [facility] Comment on above: Result Comment: Canc elled via OM: Order cancelled - Patient discharged Performed By: #### L 500.2500, L100.0100 ####[facility] [address] [place], [address] MCHC Normal 32-36 [facility] Comment on above: Result Comment: Canc elled via OM: Order cancelled - Patient discharged Performed By: #### L 500.2500, L100.0100 ####[facility] [address] [place], [address] MCV Normal 80-94 [facility] Comment on above: Result Comment: Canc elled via OM: Order cancelled - Patient discharged Performed By: #### L 500.2500, L100.0100 ####[facility] [address] [place], [address] NEUT% Normal 47-70 [facility] Comment on above: Result Comment: Canc elled via OM: Order cancelled - Patient discharged Performed By: #### L 500.2500, L100.0100 ####[facility] [address] [place], [address] PLT Normal 150-450 [facility] Comment on above: Result Comment: Canc elled via OM: Order cancelled - Patient discharged Performed By: #### L 500.2500, L100.0100 ####[facility] [address] [place], [address] RBC Normal 4.6-6.2 [facility] Comment on above: Result Comment: Canc elled via OM: Order cancelled - Patient discharged Performed By: #### L 500.2500, L100.0100 ####[facility] [address] [place], [address] RDW CV Normal 11.6-14.6 [facility] Comment on above: Result Comment: Canc elled via OM: Order cancelled - Patient discharged Performed By: #### L 500.2500, L100.0100 ####[facility] [address] [place], [address] RDW SD Normal 35.1-43.9 [facility] Comment on above: Result Comment: Canc elled via OM: Order cancelled - Patient discharged Performed By: #### L 500.2500, L100.0100 ####[facility] [address] [place], [address] WBC Normal 4.4-11.0 [facility] Comment on above: Result Comment: Canc elled via OM: Order cancelled - Patient discharged Performed By: #### L 500.2500, L100.0100 ####[facility] [address] [place], [address] Bedside Glucoseon 12-25-2024 FINGERSTICK GLU 131 mg/dL High [address] [facility] Comment on above: Result Comment: ROBERTO GEMENT OF PATIENT CARE PER NURSING PROTOCOL Performed By: #### L 501.080 ####[facility] [address] [place], [address] FINGERSTICK GLU 197 mg/dL High [facility]106 [facility] Comment on above: Result Comment: ROBERTO GEMENT OF PATIENT CARE PER NURSING PROTOCOL Performed By: #### L 501.080 ####[facility] [address] [place], [address] [facility] deOrdered By: Kain Bhakta on 12-25-2024 Glucose [Mass/Vol] 131 mg/dL High 74-106 [facility] Comment on above: MANAGEMENT OF PATIEN T CARE PER NURSING PROTOCOL Bedside Glucoseon 12-24-2024 FINGER[place]ICK GLU 90 mg/dL Normal 74-106 [facility] Comment on above: Result Comment: ROBERTO GEMENT OF PATIENT CARE PER NURSING PROTOCOL Performed By: #### L 501.080 ####[facility] [address] [place], [address] FINGERSTICK GLU 130 mg/dL High -106 [facility] Comment on above: Result Comment: ROBERTO GEMENT OF PATIENT CARE PER NURSING PROTOCOL Performed By: #### L 501.080 ####[facility] [address] [place], [address] FINGERSTICK GLU 139 mg/dL High [facility]106 [facility] Comment on above: Result Comment: ROBERTO GEMENT OF PATIENT CARE PER NURSING PROTOCOL Performed By: #### L 501.080 ####[facility] [address] [place], [address] FINGERSTICK GLU 167 mg/dL High 74-106 [facility] Comment on above: Result Comment: ROBERTO GEMENT OF PATIENT CARE PER NURSING PROTOCOL Performed By: #### L 501.080 ####[facility] [address] [place], [address] Bedside Glucoseon 12-23-2024 FING[place]ICK GLU 188 mg/dL High 74-106 [facility] Comment on above: Result Comment: ROBERTO GEMENT OF PATIENT CARE PER NURSING PROTOCOL Performed By: #### L 501.080 ####[facility] [address] [place], [address] FINGERSTICK GLU 152 mg/dL High -106 [facility] Comment on above: Result Comment: ROBERTO GEMENT OF PATIENT CARE PER NURSING PROTOCOL Performed By: #### L 501.080 ####[facility] [address] [place], [address] FINGER[place]ICK GLU 207 mg/dL High -106 [facility] Comment on above: Result Comment: ROBERTO GEMENT OF PATIENT CARE PER NURSING PROTOCOL Performed By: #### L 501.080 ####[facility] [address] [place], [address] FINGERSTICK GLU 207 mg/dL High [address] [place] [address] Comment on above: Result Comment: ROBERTO GEMENT OF PATIENT CARE PER NURSING PROTOCOL Performed By: #### L 501.080 ####[facility] [address] [place], [address] Bedside Glucoseon 12-22-2024 FINGERSTICK GLU 182 mg/dL High -106 [facility] Comment on above: Result Comment: ROBERTO GEMENT OF PATIENT CARE PER NURSING PROTOCOL Performed By: #### L 501.080 ####[facility] [address] [place], [address] FINGERSTICK GLU 189 mg/dL High 74-106 [facility] Comment on above: Result Comment: ROBERTO GEMENT OF PATIENT CARE PER NURSING PROTOCOL Performed By: #### L 501.080 ####[facility] [address] [place], [address] FINGERSTICK GLU 194 mg/dL High 74-106 [facility] Comment on above: Result Comment: ROBERTO GEMENT OF PATIENT CARE PER NURSING PROTOCOL Performed By: #### L 501.080 ####[facility] [address] [place], [address] FINGERSTICK GLU 232 mg/dL High -106 [facility] Comment on above: Result Comment: ROBERTO GEMENT OF PATIENT CARE PER NURSING PROTOCOL Performed By: #### L 501.080 ####[facility] [address] [place], [address] Bedside Glucoseon 12-21-2024 FINGERSTICK GLU 180 mg/dL High -[address] [place] [address] Comment on above: Result Comment: ROBERTO GEMENT OF PATIENT CARE PER NURSING PROTOCOL Performed By: #### L 501.080 ####[facility] [address] [place], [address] FINGERSTICK GLU 104 mg/dL Normal -106 [facility] Comment on above: Result Comment: ROBERTO GEMENT OF PATIENT CARE PER NURSING PROTOCOL Performed By: #### L 501.080 ####[facility] [address] [place], [address] FINGERSTICK GLU 147 mg/dL High -106 [facility] Comment on above: Result Comment: ROBERTO GEMENT OF PATIENT CARE PER NURSING PROTOCOL Performed By: #### L 501.080 ####[facility] [address] [place], [address] FINGERSTICK GLU 249 mg/dL High -106 [facility] Comment on above: Result Comment: ROBERTO GEMENT OF PATIENT CARE PER NURSING PROTOCOL Performed By: #### L 501.080 ####[facility] [address] [place], [address] FINGERSTICK GLU 189 mg/dL High 74-106 [facility] Comment on above: Result Comment: ROBERTO GEMENT OF PATIENT CARE PER NURSING PROTOCOL Performed By: #### L 501.080 ####[facility] [address] [place], [address] Absolute lymphocyte countOrd ered By: Kain Bhakta on 12-20-2024 Lymphocytes Auto (Unsp spec) [#/Vol] 1.77 10*3/uL 0.83-4.51 [facility] Absolute neutrophil countOrd ered By: Kain Bhakta on 12-20-2024 Neutrophils (Bld) [#/Vol] 4.3 10*3/uL 2.0-7.7 [facility] Anion gap in Serum or Plasma Ordered By: Kain Bhakta on 12-20-2024 Anion gap [Moles/Vol] 13 mmol/L 5-15 [facility] Automated lymphocyte count a s percentage of total leukocytesOrdered By: Kain Bhakta on 12-20-2024 Lymphocytes/100 WBC Auto (Unsp spec) 25.2 % - [facility] BUN/creatinine ratioOrdered By: Kain Bhakta on 12-20-2024 Urea nitrogen/Creatinine [Mass ratio] 18.0 mg/mg - [facility] Basic Metabolic Profile (BMP )on 12-20-2024 BUN/CRE 18.0 RATIO Normal - [facility] Comment on above: Performed By: #### L 100.0100, L500.2500 ####[facility] [address] [place], [address] Calcium [Mass/Vol] 8.9 mg/dL Normal 7.6-11.0 [facility] Comment on above: Performed By: #### L 100.0100, L500.2500 ####[facility] [address] [place], [address] Chloride [Moles/Vol] 99 mmol/L Normal 98-108 [facility] Comment on above: Performed By: #### L 100.0100, L500.2500 ####[facility] [address] [place], [address] CO2 [Moles/Vol] 25.4 mmol/L Normal 21.0-32.0 [facility] Comment on above: Performed By: #### L 100.0100, L500.2500 ####[facility] [address] [place], [address] Creatinine [Mass/Vol] 2.41 mg/dL High 0.70-1.20 [facility] Comment on above: Performed By: #### L 100.0100, L500.2500 ####[facility] [address] [place], [address] ECRCL 25.77 ml/min Low 50-250 [facility] Comment on above: Performed By: #### L 100.0100, L500.2500 ####[facility] [address] [place], [address] GAP 13 Normal 5-15 [facility] Comment on above: Performed By: #### L 100.0100, L500.2500 ####[facility] [address] [place], [address] GFR/1.73 sq M.predicted among non-blacks MDRD (S/P/Bld) [Vol rate/Area] 26 mL/min/{1.73_m2} Low >60 [facility] Comment on above: Result Comment: mL/m in/1.73m2 CKD-EPI Creatinine Equation (2020) Performed By: #### L 100.0100, L500.2500 ####[facility] [address] [place], [address] Glucose [Mass/Vol] 172 mg/dL High 70-99 [facility] Comment on above: Performed By: #### L 100.0100, L500.2500 ####[facility] [address] [place], [address] Potassium [Moles/Vol] 4.1 mmol/L Normal 3.3-5.1 [facility] Comment on above: Performed By: #### L 100.0100, L500.2500 ####[facility] [address] [place], [address] Sodium [Moles/Vol] 138 mmol/L Normal 133-145 [facility] Comment on above: Performed By: #### L 100.0100, L500.2500 ####[facility] [address] [place], [address] Urea nitrogen [Mass/Vol] 44 mg/dL High 4-19 [facility] Comment on above: Performed By: #### L 100.0100, L500.2500 ####[facility] [address] [place], [address] Basophil percentageOrdered B y: Kain Yony on 12-20-2024 Basophils/100 WBC (Bld) 0.6 % 0-1 [facility] Bedside Glucoseon 12-20-2024 FINGERSTICK GLU 244 mg/dL High 74-106 [facility] Comment on above: Result Comment: ROBERTO GEMENT OF PATIENT CARE PER NURSING PROTOCOL Performed By: #### L 501.080 ####[facility] [address] [place], [address] FINGERSTICK GLU 236 mg/dL High 74-106 [facility] Comment on above: Result Comment: ROBERTO GEMENT OF PATIENT CARE PER NURSING PROTOCOL Performed By: #### L 501.080 ####[facility] [address] [place], [address] FINGERSTICK GLU 212 mg/dL High 74-106 [facility] Comment on above: Result Comment: ROBERTO GEMENT OF PATIENT CARE PER NURSING PROTOCOL Performed By: #### L 501.080 ####[facility] [address] [place], [address] FINGERSTICK GLU 155 mg/dL High 74-106 [facility] Comment on above: Result Comment: ROBERTO BAÑUELOS OF PATIENT CARE PER NURSING PROTOCOL Performed By: #### L 501.080 ####[facility] [address] [place], [address] CBC W/Diff, Automatedon 08-0 5-2024 Absolute Lymph 1.77 X10 3/uL Normal 0.83-4.51 [facility] Comment on above: Performed By: #### L 100.0100, L500.2500 ####[facility] [address] [place], [address] Absolute Neut 4.3 X10 3/uL Normal 2.0-7.7 [facility] Comment on above: Performed By: #### L 100.0100, L500.2500 ####[facility] [address] [place], [address] Basophils/100 WBC (Bld) 0.6 % Normal 0-1 [facility] Comment on above: Performed By: #### L 100.0100, L500.2500 ####[facility] [address] [place], [address] Eosinophils/100 WBC (Bld) 4.7 % Normal 0-5 [facility] Comment on above: Performed By: #### L 100.0100, L500.2500 ####[facility] [address] [place], [address] Erythrocyte distribution width (RBC) [Ratio] 13.4 % Normal 11.6-14.6 [facility] Comment on above: Performed By: #### L 100.0100, L500.2500 ####[facility] [address] [place], [address] Hematocrit (Bld) [Volume fraction] 28.3 % Low 40-54 [facility] Comment on above: Performed By: #### L 100.0100, L500.2500 ####[facility] [address] [place], [address] Hemoglobin (Bld) [Mass/Vol] 9.2 g/dL Low 13.0-16.5 [facility] Comment on above: Performed By: #### L 100.0100, L500.2500 ####[facility] [address] [place], [address] IG% 0.600 Normal 0.0-0.9 [facility] Comment on above: Result Comment: IG% - Immature Granulocytes (promyelocytes, myelocytes andmetamyelocytes) > 1% indicates that a LEFT SHIFT is Present. Performed By: #### L 100.0100, L500.2500 ####[facility] [address] [place], [address] Lymphocytes/100 WBC (Bld) 25.2 % Normal 19-41 [facility] Comment on above: Performed By: #### L 100.0100, L500.2500 ####[facility] [address] [place], [address] MCH (RBC) [Entitic mass] 30.9 pg Normal 27.0-32.0 [facility] Comment on above: Performed By: #### L 100.0100, L500.2500 ####[facility] [address] [place], [address] MCHC (RBC) [Mass/Vol] 32.5 g/dL Normal 32-36 [facility] Comment on above: Performed By: #### L 100.0100, L500.2500 ####[facility] [address] [place], [address] MCV (RBC) [Entitic vol] 95.0 fL High 80-94 [facility] Comment on above: Performed By: #### L 100.0100, L500.2500 ####[facility] [address] [place], [address] Monocytes/100 WBC (Bld) 8.5 % Normal 0-10 [facility] Comment on above: Performed By: #### L 100.0100, L500.2500 ####[facility] [address] [place], [address] Neutrophils/100 WBC (Bld) 60.4 % Normal 47-70 [facility] Comment on above: Performed By: #### L 100.0100, L500.2500 ####[facility] [address] [place], [address] Nucleated RBC (Bld) [#/Vol] 0 10*3/uL Normal 0-5 [facility] Comment on above: Performed By: #### L 100.0100, L500.2500 ####[facility] [address] [place], [address] Platelet mean volume (Bld) [Entitic vol] 10.6 fL Normal 6.2-12.0 [facility] Comment on above: Performed By: #### L 100.0100, L500.2500 ####[facility] [address] [place], [address] Platelets (Bld) [#/Vol] 165 10*3/uL Normal 150-450 [facility] Comment on above: Performed By: #### L 100.0100, L500.2500 ####[facility] [address] [place], [address] RBC (Bld) [#/Vol] 2.98 10*6/uL Low 4.6-6.2 [facility] Comment on above: Performed By: #### L 100.0100, L500.2500 ####[facility] [address] [place], [address] RDW SD 46.4 fl High 35.1-43.9 [facility] Comment on above: Performed By: #### L 100.0100, L500.2500 ####[facility] [address] [place], [address] WBC (Bld) [#/Vol] 7.0 10*3/uL Normal 4.4-11.0 [facility] Comment on above: Performed By: #### L 100.0100, L500.2500 ####[facility] [address] [place], [address] Carbon dioxide, total [Moles /volume] in Central venous bloodOrdered By: Kain Bhakta on 12-20-2024 CO2 [Moles/Vol] 25.4 mmol/L 21.0-32.0 [facility] Chloride assayOrdered By: Miah Bhakta on 12-20-2024 Chloride [Moles/Vol] 99 mmol/L 98-108 [facility] Eosinophil percentageOrdered By: Kain Bhakta on 12-20-2024 Eosinophils/100 WBC (Bld) 4.7 % 0-5 [facility] Erythrocyte distribution wid th ratioOrdered By: Kain Bhakta on 12-20-2024 Erythrocyte distribution width (RBC) [Ratio] 13.4 % 11.6-14.6 [facility] Erythrocyte distribution wid th standard deviationOrdered By: Kain Bhakta on 12-20-2024 Erythrocyte distribution width (RBC) [Ratio] 46.4 fl High 35.1-43.9 [facility] Glomerular filtration rate ( GFR) estimation/1.73 sq m using serum, plasma, or whole bOrdered By: Kain Bhakta on 12-20-2024 GFR/1.73 sq M.predicted among non-blacks MDRD (S/P/Bld) [Vol rate/Area] 26 mL/min/{1.73_m2} Low >60 [facility] Comment on above: mL/min/1.73m2 CKD-EP I Creatinine Equation (2020) Hematocrit Auto (Bld) [Volum e fraction]Ordered By: Kain Bhakta on 12-20-2024 Hematocrit (Bld) [Volume fraction] 28.3 % Low 40-54 [facility] Hemoglobin measurementOrdere d By: Kain Bhakta on 12-20-2024 Hemoglobin (Bld) [Mass/Vol] 9.2 g/dL Low 13.0-16.5 [facility] Immature granulocytes/100 WB C Auto (Bld)Ordered By: Kain Bhakta on 12-20-2024 Immature granulocytes/100 WBC (Bld) 0.600 % 0.0-0.9 [facility] Comment on above: IG% - Immature Granu locytes (promyelocytes, myelocytes and metamyelocytes) > 1% indicates that a LEFT SHIFT is Present. MCV (mean corpuscular volume ) determinationOrdered By: Kain Bhakta on 12-20-2024 MCV (RBC) [Entitic vol] 95.0 fL High 80-94 [facility] Mean corpuscular hemoglobin (MCH) determinationOrdered By: Kain Bhakta 12-20-2024 MCH (RBC) [Entitic mass] 30.9 pg 27.0-32.0 [facility] Mean corpuscular hemoglobin concentration (MCHC) determinationOrdered By: Kain Bhakta 12-20-2024 MCHC (RBC) [Mass/Vol] 32.5 g/dL 32-36 [facility] Mean platelet volume determi nationOrdered By: Kain Bhakta on 12-20-2024 Platelet mean volume (Bld) [Entitic vol] 10.6 fL 6.2-12.0 [facility] Monocyte percentageOrdered B y: Kain Bhakta on 12-20-2024 Monocytes/100 WBC (Bld) 8.5 % 0-10 [facility] Neutrophil percentageOrdered By: Kain Bhakta on 12-20-2024 Neutrophils/100 WBC (Bld) 60.4 % 47-70 [facility] Nucleated red blood cell per centageOrdered By: Kain Bhakta on 12-20-2024 Nucleated RBC/100 WBC (Bld) [Ratio] 0 % 0-5 [facility] Platelet countOrdered By: Miah Bhakta on 12-20-2024 Platelets (Bld) [#/Vol] 165 10*3/uL 150-450 [facility] Potassium measurement (mass/ volume)Ordered By: Kain Bhakta on 12-20-2024 Potassium (Unsp spec) [Mass/Vol] 4.1 mmol/L 3.3-5.1 [facility] RBC Auto (Bld) [#/Vol]Ordere d By: Kain Bhakta on 12-20-2024 RBC (Bld) [#/Vol] 2.98 10*6/uL Low 4.6-6.2 [facility] Serum creatinine measurement (mass/volume)Ordered By: Kain Bhakta on 12-20-2024 Creatinine [Mass/Vol] 2.41 mg/dL High 0.70-1.20 [facility] Serum glucose measurement (m ass/volume)Ordered By: Kain Bhakta on 12-20-2024 Glucose [Mass/Vol] 172 mg/dL High 70-99 [facility] Serum or plasma calcium keven urement (mass/volume)Ordered By: Kain Bhakta on 12-20-2024 Calcium [Mass/Vol] 8.9 mg/dL 7.6-11.0 [facility] Serum or plasma urea nitroge n measurement (mass/volume)Ordered By: Kain Bhakta on 12-20-2024 Urea nitrogen [Mass/Vol] 44 mg/dL High 4-19 [facility] Sodium levelOrdered By: Kain Bhakta on 12-20-2024 Sodium [Moles/Vol] 138 mmol/L 133-145 [facility] White blood cell (WBC) count Ordered By: Kain Bhakta on 12-20-2024 WBC (Bld) [#/Vol] 7.0 10*3/uL 4.4-11.0 [facility] Bedside Glucoseon 12-19-2024 FINGERSTICK GLU 174 mg/dL High 74-106 [facility] Comment on above: Result Comment: ROBERTO BAÑUELOS OF PATIENT CARE PER NURSING PROTOCOL Performed By: #### L 501.080 ####[facility] [address] [place], [address] FINGERSTICK GLU 164 mg/dL High 74-106 [facility] Comment on above: Result Comment: ROBERTO BAÑUELOS OF PATIENT CARE PER NURSING PROTOCOL Performed By: #### L 501.080 ####[facility] [address] [place], [address] FINGERSTICK GLU 205 mg/dL High [address] [place] [address] Comment on above: Result Comment: ROBERTO GEMENT OF PATIENT CARE PER NURSING PROTOCOL Performed By: #### L 501.080 ####[facility] [address] [place], [address] FINGERSTICK GLU 187 mg/dL High [address] [place] [address] Comment on above: Result Comment: ROBERTO GEMENT OF PATIENT CARE PER NURSING PROTOCOL Performed By: #### L 501.080 ####[facility] [address] [place], [address] Bedside Glucoseon 12-18-2024 FINGERSTICK GLU 285 mg/dL High [address] [place] [address] Comment on above: Result Comment: ROBERTO GEMENT OF PATIENT CARE PER NURSING PROTOCOL Performed By: #### L 501.080 ####[facility] [address] [place], [address] FINGERSTICK GLU 221 mg/dL High [address] [place] [address] Comment on above: Result Comment: ROBERTO GEMENT OF PATIENT CARE PER NURSING PROTOCOL Performed By: #### L 501.080 ####[facility] [address] [place], [address] FINGERSTICK GLU 209 mg/dL High [address] [place] [address] Comment on above: Result Comment: ROBERTO GEMENT OF PATIENT CARE PER NURSING PROTOCOL Performed By: #### L 501.080 ####[facility] [address] [place], [address] FINGERSTICK GLU 232 mg/dL High [address] [place] [address] Comment on above: Result Comment: ROBERTO GEMENT OF PATIENT CARE PER NURSING PROTOCOL Performed By: #### L 501.080 ####[facility] [address] [place], [address] Bedside Glucoseon 08-02-2025 FINGERSTICK GLU 202 mg/dL High -106 [facility] Comment on above: Result Comment: ROBERTO GEMENT OF PATIENT CARE PER NURSING PROTOCOL Performed By: #### L 501.080 ####[facility] [address] [place], [address] FINGERSTICK GLU 167 mg/dL High [address] [place] [address] Comment on above: Result Comment: ROBERTO GEMENT OF PATIENT CARE PER NURSING PROTOCOL Performed By: #### L 501.080 ####[facility] [address] [place], [address] FINGERSTICK GLU 171 mg/dL High [address] [place] [address] Comment on above: Result Comment: ROBERTO GEMENT OF PATIENT CARE PER NURSING PROTOCOL Performed By: #### L 501.080 ####[facility] [address] [place], [address] FINGERSTICK GLU 139 mg/dL High [address] [place] [address] Comment on above: Result Comment: ROBERTO GEMENT OF PATIENT CARE PER NURSING PROTOCOL Performed By: #### L 501.080 ####[facility] [address] [place], [address] Bedside Glucoseon 12-16-2024 FINGERSTICK GLU 186 mg/dL High [address] [place] [address] Comment on above: Result Comment: ROBERTO GEMENT OF PATIENT CARE PER NURSING PROTOCOL Performed By: #### L 501.080 ####[facility] [address] [place], [address] FINGERSTICK GLU 228 mg/dL High [address] [place] [address] Comment on above: Result Comment: ROBERTO GEMENT OF PATIENT CARE PER NURSING PROTOCOL Performed By: #### L 501.080 ####[facility] [address] [place], [address] FINGERSTICK GLU 173 mg/dL High [address] [place] [address] Comment on above: Result Comment: ROBERTO GEMENT OF PATIENT CARE PER NURSING PROTOCOL Performed By: #### L 501.080 ####[facility] [address] [place], [address] FINGERSTICK GLU 175 mg/dL High [address] [place] [address] Comment on above: Result Comment: ROBERTO GEMENT OF PATIENT CARE PER NURSING PROTOCOL Performed By: #### L 501.080 ####[facility] [address] [place], [address] Bedside Glucoseon 12-15-2024 FINGERSTICK GLU 214 mg/dL High [address] [place] [address] Comment on above: Result Comment: ROBERTO GEMENT OF PATIENT CARE PER NURSING PROTOCOL Performed By: #### L 501.080 ####[facility] [address] [place], [address] FINGERSTICK GLU 197 mg/dL High [address] [place] [address] Comment on above: Result Comment: ROBERTO GEMENT OF PATIENT CARE PER NURSING PROTOCOL Performed By: #### L 501.080 ####[facility] [address] [place], [address] FINGERSTICK GLU 227 mg/dL High [address] [place] [address] Comment on above: Result Comment: ROBERTO GEMENT OF PATIENT CARE PER NURSING PROTOCOL Performed By: #### L 501.080 ####[facility] [address] [place], [address] FINGERSTICK GLU 190 mg/dL High [address] [place] [address] Comment on above: Result Comment: ROBERTO GEMENT OF PATIENT CARE PER NURSING PROTOCOL Performed By: #### L 501.080 ####[facility] [address] [place], [address] Bedside Glucoseon 12-14-2024 FINGERSTICK GLU 234 mg/dL High [address] [place] [address] Comment on above: Result Comment: ROBERTO GEMENT OF PATIENT CARE PER NURSING PROTOCOL Performed By: #### L 501.080 ####[facility] [address] [place], [address] FINGERSTICK GLU 225 mg/dL High 74-106 [facility] Comment on above: Result Comment: ROBERTO GEMENT OF PATIENT CARE PER NURSING PROTOCOL Performed By: #### L 501.080 ####[facility] [address] [place], [address] FINGERSTICK GLU 190 mg/dL High 74-106 [facility] Comment on above: Result Comment: ROBERTO GEMENT OF PATIENT CARE PER NURSING PROTOCOL Performed By: #### L 501.080 ####[facility] [address] [place], [address] FINGERSTICK GLU 206 mg/dL High 74-106 [facility] Comment on above: Result Comment: ROBERTO GEMENT OF PATIENT CARE PER NURSING PROTOCOL Performed By: #### L 501.080 ####[facility] [address] [place], [address] Basic Metabolic Profile (BMP )on 12-13-2024 BUN/CRE 18.6 RATIO Normal 10-20 [facility] Comment on above: Performed By: #### L 500.2500, L100.0100 ####[facility] [address] [place], [address] Calcium [Mass/Vol] 8.9 mg/dL Normal 7.6-11.0 [facility] Comment on above: Performed By: #### L 500.2500, L100.0100 ####[facility] [address] [place], [address] Chloride [Moles/Vol] 99 mmol/L Normal 98-108 [facility] Comment on above: Performed By: #### L 500.2500, L100.0100 ####[facility] [address] [place], [address] CO2 [Moles/Vol] 29.1 mmol/L Normal 21.0-32.0 [facility] Comment on above: Performed By: #### L 500.2500, L100.0100 ####[facility] [address] [place], [address] Creatinine [Mass/Vol] 2.06 mg/dL High 0.70-1.20 [facility] Comment on above: Performed By: #### L 500.2500, L100.0100 ####[facility] [address] [place], [address] ECRCL 29.93 ml/min Low 50-250 [facility] Comment on above: Performed By: #### L 500.2500, L100.0100 ####[facility] [address] [place], [address] GAP 9 Normal 5-15 [facility] Comment on above: Performed By: #### L 500.2500, L100.0100 ####[facility] [address] [place], [address] GFR/1.73 sq M.predicted among non-blacks MDRD (S/P/Bld) [Vol rate/Area] 31 mL/min/{1.73_m2} Low >60 [facility] Comment on above: Result Comment: mL/m in/1.73m2 CKD-EPI Creatinine Equation (2020) Performed By: #### L 500.2500, L100.0100 ####[facility] [address] [place], [address] Glucose [Mass/Vol] 210 mg/dL High 70-99 [facility] Comment on above: Performed By: #### L 500.2500, L100.0100 ####[facility] [address] [place], [address] Potassium [Moles/Vol] 5.0 mmol/L Normal 3.3-5.1 [facility] Comment on above: Performed By: #### L 500.2500, L100.0100 ####[facility] [address] [place], [address] Sodium [Moles/Vol] 138 mmol/L Normal 133-145 [facility] Comment on above: Performed By: #### L 500.2500, L100.0100 ####[facility] [address] [place], [address] Urea nitrogen [Mass/Vol] 38 mg/dL High 4-19 [facility] Comment on above: Performed By: #### L 500.2500, L100.0100 ####[facility] [address] [place], [address] Bedside Glucoseon 12-13-2024 FINGERSTICK GLU 242 mg/dL High 74-106 [facility] Comment on above: Result Comment: ROBERTO GEMENT OF PATIENT CARE PER NURSING PROTOCOL Performed By: #### L 501.080 ####[facility] [address] [place], [address] FINGERSTICK GLU 168 mg/dL High 74-106 [facility] Comment on above: Result Comment: ROBERTO GEMENT OF PATIENT CARE PER NURSING PROTOCOL Performed By: #### L 501.080 ####[facility] [address] [place], [address] FINGERSTICK GLU 208 mg/dL High 74-106 [facility] Comment on above: Result Comment: ROBERTO GEMENT OF PATIENT CARE PER NURSING PROTOCOL Performed By: #### L 501.080 ####[facility] [address] [place], [address] FINGERSTICK GLU 193 mg/dL High 74-106 [facility] Comment on above: Result Comment: ROBERTO GEMENT OF PATIENT CARE PER NURSING PROTOCOL Performed By: #### L 501.080 ####[facility] [facility] [address] [place], [address] CBC W/Diff, Automatedon 07-2 Absolute Lymph 1.57 X10 3/uL Normal 0.83-4.51 [facility] Comment on above: Performed By: #### L 500.2500, L100.0100 ####[facility] [address] [place], [address] Absolute Neut 4.6 X10 3/uL Normal 2.0-7.7 [facility] Comment on above: Performed By: #### L 500.2500, L100.0100 ####[facility] [address] [place], [address] Basophils/100 WBC (Bld) 0.4 % Normal 0-1 [facility] Comment on above: Performed By: #### L 500.2500, L100.0100 ####[facility] [address] [place], [address] Eosinophils/100 WBC (Bld) 3.9 % Normal 0-5 [facility] Comment on above: Performed By: #### L 500.2500, L100.0100 ####[facility] [address] [place], [address] Erythrocyte distribution width (RBC) [Ratio] 13.7 % Normal 11.6-14.6 [facility] Comment on above: Performed By: #### L 500.2500, L100.0100 ####[facility] [address] [place], [address] Hematocrit (Bld) [Volume fraction] 29.1 % Low 40-54 [facility] Comment on above: Performed By: #### L 500.2500, L100.0100 ####[facility] [address] [place], [address] Hemoglobin (Bld) [Mass/Vol] 9.4 g/dL Low 13.0-16.5 [facility] Comment on above: Performed By: #### L 500.2500, L100.0100 ####[facility] [address] [place], [address] IG% 0.600 Normal 0.0-0.9 [facility] Comment on above: Result Comment: IG% - Immature Granulocytes (promyelocytes, myelocytes andmetamyelocytes) > 1% indicates that a LEFT SHIFT is Present. Performed By: #### L 500.2500, L100.0100 ####[facility] [address] [place], [address] Lymphocytes/100 WBC (Bld) 21.7 % Normal 19-41 [facility] Comment on above: Performed By: #### L 500.2500, L100.0100 ####[facility] [address] [place], [address] MCH (RBC) [Entitic mass] 30.6 pg Normal 27.0-32.0 [facility] Comment on above: Performed By: #### L 500.2500, L100.0100 ####[facility] [address] [place], [address] MCHC (RBC) [Mass/Vol] 32.3 g/dL Normal 32-36 [facility] Comment on above: Performed By: #### L 500.2500, L100.0100 ####[facility] [address] [place], [address] MCV (RBC) [Entitic vol] 94.8 fL High 80-94 [facility] Comment on above: Performed By: #### L 500.2500, L100.0100 ####[facility] [address] [place], [address] Monocytes/100 WBC (Bld) 9.5 % Normal 0-10 [facility] Comment on above: Performed By: #### L 500.2500, L100.0100 ####[facility] [address] [place], [address] Neutrophils/100 WBC (Bld) 63.9 % Normal 47-70 [facility] Comment on above: Performed By: #### L 500.2500, L100.0100 ####[facility] [address] [place], [address] Nucleated RBC (Bld) [#/Vol] 0 10*3/uL Normal 0-5 [facility] Comment on above: Performed By: #### L 500.2500, L100.0100 ####[facility] [address] [place], [address] Platelet mean volume (Bld) [Entitic vol] 10.4 fL Normal 6.2-12.0 [facility] Comment on above: Performed By: #### L 500.2500, L100.0100 ####[facility] [address] [place], [address] Platelets (Bld) [#/Vol] 163 10*3/uL Normal 150-450 [facility] Comment on above: Performed By: #### L 500.2500, L100.0100 ####[facility] [address] [place], [address] RBC (Bld) [#/Vol] 3.07 10*6/uL Low 4.6-6.2 [facility] Comment on above: Performed By: #### L 500.2500, L100.0100 ####[facility] [address] [place], [address] RDW SD 47.4 fl High 35.1-43.9 [facility] Comment on above: Performed By: #### L 500.2500, L100.0100 ####[facility] [address] [place], [address] WBC (Bld) [#/Vol] 7.3 10*3/uL Normal 4.4-11.0 [facility] Comment on above: Performed By: #### L 500.2500, L100.0100 ####[facility] [address] [place], [address] Bedside Glucoseon 12-12-2024 FINGERSTICK GLU 188 mg/dL High 74-106 [facility] Comment on above: Result Comment: ROBERTO GEMENT OF PATIENT CARE PER NURSING PROTOCOL Performed By: #### L 501.080 ####[facility] [address] [place], [address] FINGERSTICK GLU 208 mg/dL High 74-106 [facility] Comment on above: Result Comment: ROBERTO GEMENT OF PATIENT CARE PER NURSING PROTOCOL Performed By: #### L 501.080 ####[facility] [address] [place], [address] FINGERSTICK GLU 189 mg/dL High -106 [facility] Comment on above: Result Comment: ROBERTO GEMENT OF PATIENT CARE PER NURSING PROTOCOL Performed By: #### L 501.080 ####[facility] [address] [place], [address] FINGERSTICK GLU 201 mg/dL High [facility]106 [facility] Comment on above: Result Comment: ROBERTO GEMENT OF PATIENT CARE PER NURSING PROTOCOL Performed By: #### L 501.080 ####[facility] [address] [place], [address] Bedside Glucoseon 12-11-2024 FINGERSTICK GLU 269 mg/dL High -106 [facility] Comment on above: Result Comment: ROBERTO GEMENT OF PATIENT CARE PER NURSING PROTOCOL Performed By: #### L 501.080 ####[facility] [address] [place], [address] FINGERSTICK GLU 235 mg/dL High 74-[address] [place] [address] Comment on above: Result Comment: ROBERTO GEMENT OF PATIENT CARE PER NURSING PROTOCOL Performed By: #### L 501.080 ####[facility] [address] [place], [address] FINGERSTICK GLU 227 mg/dL High 74-106 [facility] Comment on above: Result Comment: ROBERTO GEMENT OF PATIENT CARE PER NURSING PROTOCOL Performed By: #### L 501.080 ####[facility] [address] [place], [address] FINGERSTICK GLU 192 mg/dL High [address] [facility] Comment on above: Result Comment: ROBERTO GEMENT OF PATIENT CARE PER NURSING PROTOCOL Performed By: #### L 501.080 ####[facility] [address] [place], [address] Bedside Glucoseon 12-10-2024 FINGERSTICK GLU 219 mg/dL High [address] [place] [address] Comment on above: Result Comment: ROBERTO GEMENT OF PATIENT CARE PER NURSING PROTOCOL Performed By: #### L 501.080 ####[facility] [address] [place], [address] FINGERSTICK GLU 214 mg/dL High [address] [place] [address] Comment on above: Result Comment: ROBERTO GEMENT OF PATIENT CARE PER NURSING PROTOCOL Performed By: #### L 501.080 ####[facility] [address] [place], [address] FINGERSTICK GLU 250 mg/dL [address] Comment on above: Result Comment: ROBERTO GEMENT OF PATIENT CARE PER NURSING PROTOCOL Performed By: #### L 501.080 ####[facility] [address] [place], [address] FINGERSTICK GLU 195 mg/dL High [address] [place] [address] Comment on above: Result Comment: ROBERTO GEMENT OF PATIENT CARE PER NURSING PROTOCOL Performed By: #### L 501.080 ####[facility] [address] [place], [address] Bedside Glucoseon 12-09-2024 FINGERSTICK GLU 257 mg/dL High [facility] [place] [address] Comment on above: Result Comment: ROBERTO GEMENT OF PATIENT CARE PER NURSING PROTOCOL Performed By: #### L 501.080 ####[facility] [address] [place], [address] FINGERSTICK GLU 266 mg/dL High [address] [place] [address] Comment on above: Result Comment: ROBERTO GEMENT OF PATIENT CARE PER NURSING PROTOCOL Performed By: #### L 501.080 ####[facility] [address] [facility] [address] FINGERSTICK GLU 224 mg/dL High [address] [place] [address] Comment on above: Result Comment: ROBEROT GEMENT OF PATIENT CARE PER NURSING PROTOCOL Performed By: #### L 501.080 ####[facility] [address] [place], [address] FINGERSTICK GLU 278 mg/dL High [address] [place] [address] Comment on above: Result Comment: ROBERTO GEMENT OF PATIENT CARE PER NURSING PROTOCOL Performed By: #### L 501.080 ####[facility] [address] [place], [address] Bedside Glucoseon 12-08-2024 FINGERSTICK GLU 221 mg/dL High [address] [place] [address] Comment on above: Result Comment: ROBERTO GEMENT OF PATIENT CARE PER NURSING PROTOCOL Performed By: #### L 501.080 ####[facility] [address] [place], [address] FINGERSTICK GLU 186 mg/dL High [address] [place] [address] Comment on above: Result Comment: ROBERTO GEMENT OF PATIENT CARE PER NURSING PROTOCOL Performed By: #### L 501.080 ####[facility] [address] [facility] [address] FINGERSTICK GLU 181 mg/dL High [address] [place] [address] Comment on above: Result Comment: ROBERTO GEMENT OF PATIENT CARE PER NURSING PROTOCOL Performed By: #### L 501.080 ####[facility] [address] [place], [address] FINGERSTICK GLU 87 mg/dL Normal 74-106 [facility] Comment on above: Result Comment: ROBERTO GEMENT OF PATIENT CARE PER NURSING PROTOCOL Performed By: #### L 501.080 ####[facility] [address] [place], [address] FINGERSTICK GLU 63 mg/dL Low 74-106 [facility] Comment on above: Result Comment: ROBERTO GEMENT OF PATIENT CARE PER NURSING PROTOCOL Performed By: #### L 501.080 ####[facility] [address] [place], [address] FINGERSTICK GLU 57 mg/dL Low 74-106 [facility] Comment on above: Result Comment: ROBERTO GEMENT OF PATIENT CARE PER NURSING PROTOCOL Performed By: #### L 501.080 ####[facility] [address] [place], [address] FINGERSTICK GLU 179 mg/dL High 74-106 [facility] Comment on above: Result Comment: ROBERTO GEMENT OF PATIENT CARE PER NURSING PROTOCOL Performed By: #### L 501.080 ####[facility] [address] [place], [address] Bedside Glucoseon 12-07-2024 FINGERSTICK GLU 191 mg/dL High 74-106 [facility] Comment on above: Result Comment: ROBERTO GEMENT OF PATIENT CARE PER NURSING PROTOCOL Performed By: #### L 501.080 ####[facility] [address] [place], [address] FINGERSTICK GLU 171 mg/dL High 74-106 [facility] Comment on above: Result Comment: ROBERTO GEMENT OF PATIENT CARE PER NURSING PROTOCOL Performed By: #### L 501.080 ####[facility] [address] [place], [address] FINGERSTICK GLU 148 mg/dL High 74-106 [facility] Comment on above: Result Comment: ROBERTO BAÑUELOS OF PATIENT CARE PER NURSING PROTOCOL Performed By: #### L 501.080 ####[facility] [address] [place], [address] Basic Metabolic Profile (BMP )on 12-06-2024 BUN/CRE 17.5 RATIO Normal 10-20 [facility] Comment on above: Performed By: #### L 100.0100, L500.2500 ####[facility] [address] [place], [address] Calcium [Mass/Vol] 8.7 mg/dL Normal 7.6-11.0 [facility] Comment on above: Performed By: #### L 100.0100, L500.2500 ####[facility] [address] [place], [address] Chloride [Moles/Vol] 101 mmol/L Normal 98-108 [facility] Comment on above: Performed By: #### L 100.0100, L500.2500 ####[facility] [address] [place], [address] CO2 [Moles/Vol] 27.6 mmol/L Normal 21.0-32.0 [facility] Comment on above: Performed By: #### L 100.0100, L500.2500 ####[facility] [address] [place], [address] Creatinine [Mass/Vol] 2.19 mg/dL High 0.70-1.20 [facility] Comment on above: Performed By: #### L 100.0100, L500.2500 ####[facility] [address] [place], [address] ECRCL 28.18 ml/min Low 50-250 [facility] Comment on above: Performed By: #### L 100.0100, L500.2500 ####[facility] [address] [place], [address] GAP 11 Normal 5-15 [facility] Comment on above: Performed By: #### L 100.0100, L500.2500 ####[facility] [address] [place], [address] GFR/1.73 sq M.predicted among non-blacks MDRD (S/P/Bld) [Vol rate/Area] 29 mL/min/{1.73_m2} Low >60 [facility] Comment on above: Result Comment: mL/m in/1.73m2 CKD-EPI Creatinine Equation (2020) Performed By: #### L 100.0100, L500.2500 ####[facility] [address] [place], [address] Glucose [Mass/Vol] 111 mg/dL High 70-99 [facility] Comment on above: Performed By: #### L 100.0100, L500.2500 ####[facility] [address] [place], [address] Potassium [Moles/Vol] 4.1 mmol/L Normal 3.3-5.1 [facility] Comment on above: Performed By: #### L 100.0100, L500.2500 ####[facility] [address] [place], [address] Sodium [Moles/Vol] 139 mmol/L Normal 133-145 [facility] Comment on above: Performed By: #### L 100.0100, L500.2500 ####[facility] [address] [place], [address] Urea nitrogen [Mass/Vol] 38 mg/dL High 4-19 [facility] Comment on above: Performed By: #### L 100.0100, L500.2500 ####[facility] [address] [place], [address] Bedside Glucoseon 07-22-2025 FINGERSTICK GLU 189 mg/dL High 74-106 [facility] Comment on above: Result Comment: ROBERTO GEMENT OF PATIENT CARE PER NURSING PROTOCOL Performed By: #### L 501.080 ####[facility] [address] [place], [address] FINGERSTICK GLU 155 mg/dL High 74-106 [facility] Comment on above: Result Comment: ROBERTO GEMENT OF PATIENT CARE PER NURSING PROTOCOL Performed By: #### L 501.080 ####[facility] [address] [place], [address] FINGERSTICK GLU 183 mg/dL High -106 [facility] Comment on above: Result Comment: ROBERTO GEMENT OF PATIENT CARE PER NURSING PROTOCOL Performed By: #### L 501.080 ####[facility] [address] [place], [address] FINGERSTICK GLU 114 mg/dL High [facility]106 [facility] Comment on above: Result Comment: ROBERTO GEMENT OF PATIENT CARE PER NURSING PROTOCOL Performed By: #### L 501.080 ####[facility] [address] [place], [address] CBC W/Diff, Automatedon 07- Absolute Lymph 1.57 X10 3/uL Normal 0.83-4.51 [facility] Comment on above: Performed By: #### L 100.0100, L500.2500 ####[facility] [address] [place], [address] Absolute Neut 3.7 X10 3/uL Normal 2.0-7.7 [facility] Comment on above: Performed By: #### L 100.0100, L500.2500 ####[facility] [address] [place], [address] Basophils/100 WBC (Bld) 0.5 % Normal 0-1 [facility] Comment on above: Performed By: #### L 100.0100, L500.2500 ####[facility] [address] [place], [address] Eosinophils/100 WBC (Bld) 4.8 % Normal 0-5 [facility] Comment on above: Performed By: #### L 100.0100, L500.2500 ####[facility] [address] [place], [address] Erythrocyte distribution width (RBC) [Ratio] 13.6 % Normal 11.6-14.6 [facility] Comment on above: Performed By: #### L 100.0100, L500.2500 ####[facility] [address] [place], [address] Hematocrit (Bld) [Volume fraction] 27.7 % Low 40-54 [facility] Comment on above: Performed By: #### L 100.0100, L500.2500 ####[facility] [address] [place], [address] Hemoglobin (Bld) [Mass/Vol] 9.1 g/dL Low 13.0-16.5 [facility] Comment on above: Performed By: #### L 100.0100, L500.2500 ####[facility] [address] [place], [address] IG% 0.500 Normal 0.0-0.9 [facility] Comment on above: Result Comment: IG% - Immature Granulocytes (promyelocytes, myelocytes andmetamyelocytes) > 1% indicates that a LEFT SHIFT is Present. Performed By: #### L 100.0100, L500.2500 ####[facility] [address] [place], [address] Lymphocytes/100 WBC (Bld) 25.1 % Normal 19-41 [facility] Comment on above: Performed By: #### L 100.0100, L500.2500 ####[facility] [address] [place], [address] MCH (RBC) [Entitic mass] 31.3 pg Normal 27.0-32.0 [facility] Comment on above: Performed By: #### L 100.0100, L500.2500 ####[facility] [address] [place], [address] MCHC (RBC) [Mass/Vol] 32.9 g/dL Normal 32-36 [facility] Comment on above: Performed By: #### L 100.0100, L500.2500 ####[facility] [address] [place], [address] MCV (RBC) [Entitic vol] 95.2 fL High 80-94 [facility] Comment on above: Performed By: #### L 100.0100, L500.2500 ####[facility] [address] [place], [address] Monocytes/100 WBC (Bld) 9.9 % Normal 0-10 [facility] Comment on above: Performed By: #### L 100.0100, L500.2500 ####[facility] [address] [place], [address] Neutrophils/100 WBC (Bld) 59.2 % Normal 47-70 [facility] Comment on above: Performed By: #### L 100.0100, L500.2500 ####[facility] [address] [place], [address] Nucleated RBC (Bld) [#/Vol] 0 10*3/uL Normal 0-5 [facility] Comment on above: Performed By: #### L 100.0100, L500.2500 ####[facility] [address] [place], [address] Platelet mean volume (Bld) [Entitic vol] 10.3 fL Normal 6.2-12.0 [facility] Comment on above: Performed By: #### L 100.0100, L500.2500 ####[facility] [address] [place], [address] Platelets (Bld) [#/Vol] 173 10*3/uL Normal 150-450 [facility] Comment on above: Performed By: #### L 100.0100, L500.2500 ####[facility] [facility] [address] [place], [address] RBC (Bld) [#/Vol] 2.91 10*6/uL Low 4.6-6.2 [facility] Comment on above: Performed By: #### L 100.0100, L500.2500 ####[facility] [address] [place], [address] RDW SD 47.6 fl High 35.1-43.9 [facility] Comment on above: Performed By: #### L 100.0100, L500.2500 ####[facility] [address] [place], [address] WBC (Bld) [#/Vol] 6.3 10*3/uL Normal 4.4-11.0 [facility] Comment on above: Performed By: #### L 100.0100, L500.2500 ####[facility] [address] [place], [address] Absolute lymphocyte countOrd ered By: Afsaneh Kapoor on 12-05-2024 Lymphocytes Auto (Unsp spec) [#/Vol] 1.42 10*3/uL 0.83-4.51 [facility] Absolute neutrophil countOrd ered By: Emelia on 12-05-2024 Neutrophils (Bld) [#/Vol] 3.8 10*3/uL 2.0-7.7 [facility] Anion gap in Serum or Plasma Ordered By: Afsaneh Kapoor on 12-05-2024 Anion gap [Moles/Vol] 9 mmol/L 5-15 [facility] Automated lymphocyte count a s percentage of total leukocytesOrdered By: White on 12-05-2024 Lymphocytes/100 WBC Auto (Unsp spec) 23.2 % 19- [facility] BUN/creatinine ratioOrdered By: White on 12-05-2024 Urea nitrogen/Creatinine [Mass ratio] 16.9 mg/mg 10-20 [facility] Basophil percentageOrdered B y: White on 12-05-2024 Basophils/100 WBC (Bld) 0.5 % 0-1 [facility] Bedside Glucoseon 12-05-2024 FINGERSTICK GLU 150 mg/dL High 74-106 [facility] Comment on above: Result Comment: ROBERTO GEMENT OF PATIENT CARE PER NURSING PROTOCOL Performed By: #### L 501.080 ####[facility] [address] [facility] [address] FINGERSTICK GLU 207 mg/dL High [address] [place] [address] Comment on above: Result Comment: ROBERTO GEMENT OF PATIENT CARE PER NURSING PROTOCOL Performed By: #### L 501.080 ####[facility] [address] [facility] [address] FINGERSTICK GLU 144 mg/dL High [facility]106 [facility] Comment on above: Result Comment: ROBERTO GEMENT OF PATIENT CARE PER NURSING PROTOCOL Performed By: #### L 501.080 ####[facility] [address] [place], [address] FINGERSTICK GLU 113 mg/dL High 74-106 [facility] Comment on above: Result Comment: ROBERTO GEMENT OF PATIENT CARE PER NURSING PROTOCOL Performed By: #### L 501.080 ####[facility] [address] [facility] [address] FINGERSTICK GLU 126 mg/dL High [facility]106 [facility] Comment on above: Result Comment: ROBERTO GEMENT OF PATIENT CARE PER NURSING PROTOCOL Performed By: #### L 501.080 ####[facility] [address] [facility] [address] Bilirubin, totalOrdered By: Afsaneh Kapoor on 12-05-2024 Bilirubin [Mass/Vol] 0.38 mg/dL 0.00-1.30 [facility] CBC W/Diff, Automatedon 11-16 Absolute Lymph 1.42 X10 3/uL Normal 0.83-4.51 [facility] Comment on above: Performed By: #### L 500.4050, L100.0100 ####[facility] [address] [place], [address] Absolute Neut 3.8 X10 3/uL Normal 2.0-7.7 [facility] Comment on above: Performed By: #### L 500.4050, L100.0100 ####[facility] [address] [place], [address] Basophils/100 WBC (Bld) 0.5 % Normal 0-1 [facility] Comment on above: Performed By: #### L 500.4050, L100.0100 ####[facility] [address] [place], [address] Eosinophils/100 WBC (Bld) 4.6 % Normal 0-5 [facility] Comment on above: Performed By: #### L 500.4050, L100.0100 ####[facility] [address] [place], [address] Erythrocyte distribution width (RBC) [Ratio] 13.5 % Normal 11.6-14.6 [facility] Comment on above: Performed By: #### L 500.4050, L100.0100 ####[facility] [address] [place], [address] Hematocrit (Bld) [Volume fraction] 26.9 % Low 40-54 [facility] Comment on above: Performed By: #### L 500.4050, L100.0100 ####[facility] [address] [place], [address] Hemoglobin (Bld) [Mass/Vol] 8.7 g/dL Low 13.0-16.5 [facility] Comment on above: Performed By: #### L 500.4050, L100.0100 ####[facility] [address] [place], [address] IG% 0.500 Normal 0.0-0.9 [facility] Comment on above: Result Comment: IG% - Immature Granulocytes (promyelocytes, myelocytes andmetamyelocytes) > 1% indicates that a LEFT SHIFT is Present. Performed By: #### L 500.4050, L100.0100 ####[facility] [address] [place], [address] Lymphocytes/100 WBC (Bld) 23.2 % Normal 19-41 [facility] Comment on above: Performed By: #### L 500.4050, L100.0100 ####[facility] [address] [place], [address] MCH (RBC) [Entitic mass] 31.1 pg Normal 27.0-32.0 [facility] Comment on above: Performed By: #### L 500.4050, L100.0100 ####[facility] [address] [place], [address] MCHC (RBC) [Mass/Vol] 32.3 g/dL Normal 32-36 [facility] Comment on above: Performed By: #### L 500.4050, L100.0100 ####[facility] [address] [place], [address] MCV (RBC) [Entitic vol] 96.1 fL High 80-94 [facility] Comment on above: Performed By: #### L 500.4050, L100.0100 ####[facility] [address] [place], [address] Monocytes/100 WBC (Bld) 10.1 % High 0-10 [facility] Comment on above: Performed By: #### L 500.4050, L100.0100 ####[facility] [address] [place], [address] Neutrophils/100 WBC (Bld) 61.1 % Normal 47-70 [facility] Comment on above: Performed By: #### L 500.4050, L100.0100 ####[facility] [address] [place], [address] Nucleated RBC (Bld) [#/Vol] 0 10*3/uL Normal 0-5 [facility] Comment on above: Performed By: #### L 500.4050, L100.0100 ####[facility] [address] [place], [address] Platelet mean volume (Bld) [Entitic vol] 10.3 fL Normal 6.2-12.0 [facility] Comment on above: Performed By: #### L 500.4050, L100.0100 ####[facility] [address] [place], [address] Platelets (Bld) [#/Vol] 170 10*3/uL Normal 150-450 [facility] Comment on above: Performed By: #### L 500.4050, L100.0100 ####[facility] [address] [place], [address] RBC (Bld) [#/Vol] 2.80 10*6/uL Low 4.6-6.2 [facility] Comment on above: Performed By: #### L 500.4050, L100.0100 ####[facility] [address] [place], [address] RDW SD 47.7 fl High 35.1-43.9 [facility] Comment on above: Performed By: #### L 500.4050, L100.0100 ####[facility] [address] [place], [address] WBC (Bld) [#/Vol] 6.1 10*3/uL Normal 4.4-11.0 [facility] Comment on above: Performed By: #### L 500.4050, L100.0100 ####[facility] [address] [place], [address] Carbon dioxide, total [Moles /volume] in Central venous bloodOrdered By: Afsaneh Kapoor on 12-05-2024 CO2 [Moles/Vol] 30.2 mmol/L 21.0-32.0 [facility] Chloride assayOrdered By: Jennifer Kapoor on 12-05-2024 Chloride [Moles/Vol] 102 mmol/L 98-108 [facility] Comprehensive Metabolic Prof ilon 12-05-2024 Albumin [Mass/Vol] 3.5 g/dL Normal 3.4-4.8 [facility] Comment on above: Performed By: #### L 500.4050, L100.0100 ####[facility] [address] [place], [address] Albumin/Globulin [Mass ratio] 1.1 {ratio} Normal 0.9-2.4 [facility] Comment on above: Performed By: #### L 500.4050, L100.0100 ####[facility] [address] [place], [address] ALK PHOS 83 U/L Normal 40-129 [facility] Comment on above: Performed By: #### L 500.4050, L100.0100 ####[facility] [address] [place], [address] ALT [Catalytic activity/Vol] 11 U/L Normal <=46 [facility] Comment on above: Performed By: #### L 500.4050, L100.0100 ####[facility] [address] [place], [address] AST [Catalytic activity/Vol] 20 U/L Normal <=37 [facility] Comment on above: Performed By: #### L 500.4050, L100.0100 ####[facility] [address] [place], [address] Bilirubin [Mass/Vol] 0.38 mg/dL Normal 0.00-1.30 [facility] Comment on above: Performed By: #### L 500.4050, L100.0100 ####[facility] [address] [place], [address] BUN/CRE 16.9 RATIO Normal 10-20 [facility] Comment on above: Performed By: #### L 500.4050, L100.0100 ####[facility] [address] [place], [address] Calcium [Mass/Vol] 8.8 mg/dL Normal 7.6-11.0 [facility] Comment on above: Performed By: #### L 500.4050, L100.0100 ####[facility] [address] [place], [address] Chloride [Moles/Vol] 102 mmol/L Normal 98-108 [facility] Comment on above: Performed By: #### L 500.4050, L100.0100 ####[facility] [address] [place], [address] CO2 [Moles/Vol] 30.2 mmol/L Normal 21.0-32.0 [facility] Comment on above: Performed By: #### L 500.4050, L100.0100 ####[facility] [address] [place], [address] Creatinine [Mass/Vol] 2.18 mg/dL High 0.70-1.20 [facility] Comment on above: Performed By: #### L 500.4050, L100.0100 ####[facility] [address] [place], [address] ECRCL 28.23 ml/min Low 50-250 [facility] Comment on above: Performed By: #### L 500.4050, L100.0100 ####[facility] [address] [place], [address] GAP 9 Normal 5-15 [facility] Comment on above: Performed By: #### L 500.4050, L100.0100 ####[facility] [address] [place], [address] GFR/1.73 sq M.predicted among non-blacks MDRD (S/P/Bld) [Vol rate/Area] 29 mL/min/{1.73_m2} Low >60 [facility] Comment on above: Result Comment: mL/m in/1.73m2 CKD-EPI Creatinine Equation (2020) Performed By: #### L 500.4050, L100.0100 ####[facility] [address] [place], [address] Globulin (S) [Mass/Vol] 3.3 g/dL Normal 2.2-4.2 [facility] Comment on above: Performed By: #### L 500.4050, L100.0100 ####[facility] [address] [place], [address] Glucose [Mass/Vol] 117 mg/dL High 70-99 [facility] Comment on above: Performed By: #### L 500.4050, L100.0100 ####[facility] [address] [place], [address] Potassium [Moles/Vol] 4.1 mmol/L Normal 3.3-5.1 [facility] Comment on above: Performed By: #### L 500.4050, L100.0100 ####[facility] [address] [place], [address] Sodium [Moles/Vol] 141 mmol/L Normal 133-145 [facility] Comment on above: Performed By: #### L 500.4050, L100.0100 ####[facility] [address] [place], [address] T PROT 6.8 g/dL Normal 5.9-8.4 [facility] Comment on above: Performed By: #### L 500.4050, L100.0100 ####[facility] [address] [place], [address] Urea nitrogen [Mass/Vol] 37 mg/dL High 4-19 [facility] Comment on above: Performed By: #### L 500.4050, L100.0100 ####[facility] [address] [place], [address] Discharge Instructionon 11-16 Discharge Instruction Normal [facility] Eosinophil percentageOrdered By: [facility] Emelia on 12-05-2024 Eosinophils/100 WBC (Bld) 4.6 % 0-5 [facility] Erythrocyte distribution wid th ratioOrdered By: Afsaneh White on 12-05-2024 Erythrocyte distribution width (RBC) [Ratio] 13.5 % 11.6-14.6 [facility] Erythrocyte distribution wid th standard deviationOrdered By: Afsaneh White on 12-05-2024 Erythrocyte distribution width (RBC) [Ratio] 47.7 fl High 35.1-43.9 [facility] Glomerular filtration rate ( GFR) estimation/1.73 sq m using serum, plasma, or whole bOrdered By: Afsaneh White on 12-05-2024 GFR/1.73 sq M.predicted among non-blacks MDRD (S/P/Bld) [Vol rate/Area] 29 mL/min/{1.73_m2} Low >60 [facility] Comment on above: mL/min/1.73m2 CKD-EP I Creatinine Equation (2020) [facility] deOrdered By: Nora Ramirez on 12-05-2024 Glucose [Mass/Vol] 207 mg/dL High 74-106 [facility] Comment on above: MANAGEMENT OF PATIEN T CARE PER NURSING PROTOCOL Hematocrit Auto (Bld) [Volum e fraction]Ordered By: Afsaneh Kapoor on 12-05-2024 Hematocrit (Bld) [Volume fraction] 26.9 % Low 40-54 [facility] Hemoglobin measurementOrdere d By: Afsaneh Kapoor on 12-05-2024 Hemoglobin (Bld) [Mass/Vol] 8.7 g/dL Low 13.0-16.5 [facility] Immature granulocytes/100 WB C Auto (Bld)Ordered By: Afsaneh Kapoor on 12-05-2024 Immature granulocytes/100 WBC (Bld) 0.500 % 0.0-0.9 [facility] Comment on above: IG% - Immature Granu locytes (promyelocytes, myelocytes and metamyelocytes) > 1% indicates that a LEFT SHIFT is Present. Laboratory - Chemistry and C hemistry - challengeOrdered By: Afsaneh Kapoor on 12-05-2024 AST [Catalytic activity/Vol] 20 U/L <38 [facility] MCV (mean corpuscular volume ) determinationOrdered By: Afsaneh Emelia on 12-05-2024 MCV (RBC) [Entitic vol] 96.1 fL High 80-94 [facility] Mean corpuscular hemoglobin (MCH) determinationOrdered By: Afsaneh Emelia on 12-05-2024 MCH (RBC) [Entitic mass] 31.1 pg 27.0-32.0 [facility] Mean corpuscular hemoglobin concentration (MCHC) determinationOrdered By: Afsaneh Emelia 12-05-2024 MCHC (RBC) [Mass/Vol] 32.3 g/dL 32-36 [facility] Mean platelet volume determi nationOrdered By: Afsaneh Emelia 12-05-2024 Platelet mean volume (Bld) [Entitic vol] 10.3 fL 6.2-12.0 [facility] Monocyte percentageOrdered B y: Afsaneh Kapoor on 12-05-2024 Monocytes/100 WBC (Bld) 10.1 % High 0-10 [facility] Neutrophil percentageOrdered By: Afsaneh Kapoor on 12-05-2024 Neutrophils/100 WBC (Bld) 61.1 % 47-70 [facility] Nucleated red blood cell per centageOrdered By: Afsaneh Kapoor on 12-05-2024 Nucleated RBC/100 WBC (Bld) [Ratio] 0 % 0-5 [facility] Platelet countOrdered By: Jennifer cole Emelia on 12-05-2024 Platelets (Bld) [#/Vol] 170 10*3/uL 150-450 [facility] Potassium measurement (mass/ volume)Ordered By: Afsaneh Kapoor on 12-05-2024 Potassium (Unsp spec) [Mass/Vol] 4.1 mmol/L 3.3-5.1 [facility] RBC Auto (Bld) [#/Vol]Ordere d By: Afsaneh Kapoor on 12-05-2024 RBC (Bld) [#/Vol] 2.80 10*6/uL Low 4.6-6.2 [facility] Serum creatinine measurement (mass/volume)Ordered By: Afsaneh Kapoor on 12-05-2024 Creatinine [Mass/Vol] 2.18 mg/dL High 0.70-1.20 [facility] Serum globulin measurementOr dered By: Afsaneh Kapoor on 12-05-2024 Globulin (S) [Mass/Vol] 3.3 g/dL 2.2-4.2 [facility] Serum glucose measurement (m ass/volume)Ordered By: Afsaneh Kapoor on 12-05-2024 Glucose [Mass/Vol] 117 mg/dL High 70-99 [facility] Serum or plasma alanine madden otransferase (ALT) measurementOrdered By: Afsaneh Kapoor on 12-05-2024 ALT [Catalytic activity/Vol] 11 U/L <47 [facility] Serum or plasma albumin keven urement (mass/volume)Ordered By: Afsaneh Kapoor on 12-05-2024 Albumin [Mass/Vol] 3.5 g/dL 3.4-4.8 [facility] Serum or plasma albumin/glob ulin mass ratioOrdered By: Afsaneh Kapoor on 12-05-2024 Albumin/Globulin [Mass ratio] 1.1 {ratio} 0.9-2.4 [facility] Serum or plasma alkaline bebo sphatase measurementOrdered By: Afsaneh Kapoor on 12-05-2024 ALP [Catalytic activity/Vol] 83 U/L 40-129 [facility] Serum or plasma calcium keven urement (mass/volume)Ordered By: Afsaneh Kapoor on 12-05-2024 Calcium [Mass/Vol] 8.8 mg/dL 7.6-11.0 [facility] Serum or plasma urea nitroge n measurement (mass/volume)Ordered By: Afsaneh Kapoor on 12-05-2024 Urea nitrogen [Mass/Vol] 37 mg/dL High 4-19 [facility] Sodium levelOrdered By: Rosa Iselau mn White on 12-05-2024 Sodium [Moles/Vol] 141 mmol/L 133-145 [facility] Total proteinOrdered By: Aut umn White on 12-05-2024 Protein [Mass/Vol] 6.8 g/dL 5.9-8.4 [facility] White blood cell (WBC) count Ordered By: Afsaneh Kapoor on 12-05-2024 WBC (Bld) [#/Vol] 6.1 10*3/uL 4.4-11.0 [facility] Adrenocorticotropic Hormoneo n 12-04-2024 ACTH 15.9 pg/mL Normal 7.2-63.3 [facility] Comment on above: Result Comment: ACTH reference interval for samples collected between 7 and10 AM.Performed at: [facility] [address] Director: Dre Diane PhD, Phone: [phone] Performed By: #### L 8000.1000, L692.2528, L590.7162, L543.1779, L532.5647 ####[facility] [address] [place], [place], [address] Bedside Glucoseon 12-04-2024 FINGERSTICK GLU 141 mg/dL High 74-106 [facility] Comment on above: Result Comment: ROBERTO GEMENT OF PATIENT CARE PER NURSING PROTOCOL Performed By: #### L 501.080 ####[facility] [address] [place], [address] FINGERSTICK GLU 163 mg/dL High 74-106 [facility] Comment on above: Result Comment: ROBERTO GEMENT OF PATIENT CARE PER NURSING PROTOCOL Performed By: #### L 501.080 ####[facility] [address] [place], [address] FINGERSTICK GLU 178 mg/dL High 74-106 [facility] Comment on above: Result Comment: ROBERTO BAÑUELOS OF PATIENT CARE PER NURSING PROTOCOL Performed By: #### L 501.080 ####[facility] [address] [place], [address] CBC W/Diff, Automatedon 07-2 0-2024 Absolute Lymph 1.65 X10 3/uL Normal 0.83-4.51 [facility] Comment on above: Performed By: #### L 500.4050, L100.0100 ####[facility] [address] [place], [address] Absolute Neut 3.4 X10 3/uL Normal 2.0-7.7 [facility] Comment on above: Performed By: #### L 500.4050, L100.0100 ####[facility] [address] [place], [address] Basophils/100 WBC (Bld) 0.7 % Normal 0-1 [facility] Comment on above: Performed By: #### L 500.4050, L100.0100 ####[facility] [address] [place], [address] Eosinophils/100 WBC (Bld) 4.6 % Normal 0-5 [facility] Comment on above: Performed By: #### L 500.4050, L100.0100 ####[facility] [address] [place], [address] Erythrocyte distribution width (RBC) [Ratio] 13.6 % Normal 11.6-14.6 [facility] Comment on above: Performed By: #### L 500.4050, L100.0100 ####[facility] [address] [place], [address] Hematocrit (Bld) [Volume fraction] 26.2 % Low 40-54 [facility] Comment on above: Performed By: #### L 500.4050, L100.0100 ####[facility] [address] [place], [address] Hemoglobin (Bld) [Mass/Vol] 8.4 g/dL Low 13.0-16.5 [facility] Comment on above: Performed By: #### L 500.4050, L100.0100 ####[facility] [address] [place], [address] IG% 0.300 Normal 0.0-0.9 [facility] Comment on above: Result Comment: IG% - Immature Granulocytes (promyelocytes, myelocytes andmetamyelocytes) > 1% indicates that a LEFT SHIFT is Present. Performed By: #### L 500.4050, L100.0100 ####[facility] [address] [place], [address] Lymphocytes/100 WBC (Bld) 27.9 % Normal 19-41 [facility] Comment on above: Performed By: #### L 500.4050, L100.0100 ####[facility] [address] [place], [address] MCH (RBC) [Entitic mass] 31.0 pg Normal 27.0-32.0 [facility] Comment on above: Performed By: #### L 500.4050, L100.0100 ####[facility] [address] [place], [address] MCHC (RBC) [Mass/Vol] 32.1 g/dL Normal 32-36 [facility] Comment on above: Performed By: #### L 500.4050, L100.0100 ####[facility] [address] [place], [address] MCV (RBC) [Entitic vol] 96.7 fL High 80-94 [facility] Comment on above: Performed By: #### L 500.4050, L100.0100 ####[facility] [address] [place], [address] Monocytes/100 WBC (Bld) 9.6 % Normal 0-10 [facility] Comment on above: Performed By: #### L 500.4050, L100.0100 ####[facility] [address] [place], [address] Neutrophils/100 WBC (Bld) 56.9 % Normal 47-70 [facility] Comment on above: Performed By: #### L 500.4050, L100.0100 ####[facility] [address] [place], [address] Nucleated RBC (Bld) [#/Vol] 0 10*3/uL Normal 0-5 [facility] Comment on above: Performed By: #### L 500.4050, L100.0100 ####[facility] [address] [place], [address] Platelet mean volume (Bld) [Entitic vol] 10.1 fL Normal 6.2-12.0 [facility] Comment on above: Performed By: #### L 500.4050, L100.0100 ####[facility] [address] [place], [address] Platelets (Bld) [#/Vol] 150 10*3/uL Normal 150-450 [facility] Comment on above: Performed By: #### L 500.4050, L100.0100 ####[facility] [address] [place], [address] RBC (Bld) [#/Vol] 2.71 10*6/uL Low 4.6-6.2 [facility] Comment on above: Performed By: #### L 500.4050, L100.0100 ####[facility] [address] [place], [address] RDW SD 47.8 fl High 35.1-43.9 [facility] Comment on above: Performed By: #### L 500.4050, L100.0100 ####[facility] [address] [place], [address] WBC (Bld) [#/Vol] 5.9 10*3/uL Normal 4.4-11.0 [facility] Comment on above: Performed By: #### L 500.4050, L100.0100 ####[facility] [address] [place], [address] Comprehensive Metabolic Prof [facility] 12-04-2024 Albumin [Mass/Vol] 3.3 g/dL Low 3.4-4.8 [facility] Comment on above: Performed By: #### L 500.4050, L100.0100 ####[facility] [address] [place], [address] Albumin/Globulin [Mass ratio] 1.1 {ratio} Normal 0.9-2.4 [facility] Comment on above: Performed By: #### L 500.4050, L100.0100 ####[facility] [address] [place], [address] ALK PHOS 76 U/L Normal 40-129 [facility] Comment on above: Performed By: #### L 500.4050, L100.0100 ####[facility] [address] [place], [address] ALT [Catalytic activity/Vol] 9 U/L Normal <=46 [facility] Comment on above: Performed By: #### L 500.4050, L100.0100 ####[facility] [address] [place], [address] AST [Catalytic activity/Vol] 19 U/L Normal <=37 [facility] Comment on above: Performed By: #### L 500.4050, L100.0100 ####[facility] [address] [place], [address] Bilirubin [Mass/Vol] 0.33 mg/dL Normal 0.00-1.30 [facility] Comment on above: Performed By: #### L 500.4050, L100.0100 ####[facility] [address] [place], [address] BUN/CRE 15.6 RATIO Normal 10-20 [facility] Comment on above: Performed By: #### L 500.4050, L100.0100 ####[facility] [address] [place], [address] Calcium [Mass/Vol] 8.5 mg/dL Normal 7.6-11.0 [facility] Comment on above: Performed By: #### L 500.4050, L100.0100 ####[facility] [address] [place], [address] Chloride [Moles/Vol] 103 mmol/L Normal 98-108 [facility] Comment on above: Performed By: #### L 500.4050, L100.0100 ####[facility] [address] [place], [address] CO2 [Moles/Vol] 28.8 mmol/L Normal 21.0-32.0 [facility] Comment on above: Performed By: #### L 500.4050, L100.0100 ####[facility] [address] [place], [address] Creatinine [Mass/Vol] 2.18 mg/dL High 0.70-1.20 [facility] Comment on above: Performed By: #### L 500.4050, L100.0100 ####[facility] [address] [place], [address] ECRCL 28.56 ml/min Low 50-250 [facility] Comment on above: Performed By: #### L 500.4050, L100.0100 ####[facility] [address] [place], [address] GAP 9 Normal 5-15 [facility] Comment on above: Performed By: #### L 500.4050, L100.0100 ####[facility] [address] [place], [address] GFR/1.73 sq M.predicted among non-blacks MDRD (S/P/Bld) [Vol rate/Area] 29 mL/min/{1.73_m2} Low >60 [facility] Comment on above: Result Comment: mL/m in/1.73m2 CKD-EPI Creatinine Equation (2020) Performed By: #### L 500.4050, L100.0100 ####[facility] [address] [place], [address] Globulin (S) [Mass/Vol] 3.1 g/dL Normal 2.2-4.2 [facility] Comment on above: Performed By: #### L 500.4050, L100.0100 ####[facility] [address] [place], [address] Glucose [Mass/Vol] 84 mg/dL Normal 70-99 [facility] Comment on above: Performed By: #### L 500.4050, L100.0100 ####[facility] [address] [place], [address] Potassium [Moles/Vol] 4.1 mmol/L Normal 3.3-5.1 [facility] Comment on above: Performed By: #### L 500.4050, L100.0100 ####[facility] [address] [place], [address] Sodium [Moles/Vol] 140 mmol/L Normal 133-145 [facility] Comment on above: Performed By: #### L 500.4050, L100.0100 ####[facility] [address] [place], [address] T PROT 6.4 g/dL Normal 5.9-8.4 [facility] Comment on above: Performed By: #### L 500.4050, L100.0100 ####[facility] [address] [place], [address] Urea nitrogen [Mass/Vol] 34 mg/dL High -19 [facility] Comment on above: Performed By: #### L 500.4050, L100.0100 ####[facility] [address] [place], [address] Bedside Glucoseon 12-03-2024 FINGERSTICK GLU 138 mg/dL High 74-106 [facility] Comment on above: Result Comment: ROBERTO GEMENT OF PATIENT CARE PER NURSING PROTOCOL Performed By: #### L 501.080 ####[facility] [address] [place], [address] FINGERSTICK GLU 141 mg/dL High 74-106 [facility] Comment on above: Result Comment: ROBERTO GEMENT OF PATIENT CARE PER NURSING PROTOCOL Performed By: #### L 501.080 ####[facility] [address] [place], [address] FINGERSTICK GLU 122 mg/dL High 74-106 [facility] Comment on above: Result Comment: ROBERTO GEMENT OF PATIENT CARE PER NURSING PROTOCOL Performed By: #### L 501.080 ####[facility] [address] [place], [address] FINGERSTICK GLU 157 mg/dL High 74-106 [facility] Comment on above: Result Comment: ROBERTO GEMENT OF PATIENT CARE PER NURSING PROTOCOL Performed By: #### L 501.080 ####[facility] [address] [place], [address] FINGERSTICK GLU 29 mg/dL Invalid Interpretation Code 74-106 [facility] Comment on above: Result Comment: ROBERTO GEMENT OF PATIENT CARE PER NURSING PROTOCOL Performed By: #### L 501.080 ####[facility] [address] [place], [address] FINGERSTICK GLU 235 mg/dL High [address] [place] [address] Comment on above: Result Comment: ROBERTO GEMENT OF PATIENT CARE PER NURSING PROTOCOL Performed By: #### L 501.080 ####[facility] [address] [place], [address] FINGERSTICK GLU 210 mg/dL High [address] [place] [address] Comment on above: Result Comment: ROBERTO GEMENT OF PATIENT CARE PER NURSING PROTOCOL Performed By: #### L 501.080 ####[facility] [address] [place], [address] FINGERSTICK GLU 162 mg/dL High [address] [place] [address] Comment on above: Result Comment: ROBERTO GEMENT OF PATIENT CARE PER NURSING PROTOCOL Performed By: #### L 501.080 ####[facility] [address] [place], [address] CBC W/Diff, Automatedon 07-1 Absolute Lymph 1.58 X10 3/uL Normal 0.83-4.51 [facility] Comment on above: Performed By: #### L 100.0100, L500.4050 ####[facility] [address] [place], [address] Absolute Neut 3.4 X10 3/uL Normal 2.0-7.7 [facility] Comment on above: Performed By: #### L 100.0100, L500.4050 ####[facility] [address] [place], [address] Basophils/100 WBC (Bld) 0.5 % Normal 0-1 [facility] Comment on above: Performed By: #### L 100.0100, L500.4050 ####[facility] [address] [place], [address] Eosinophils/100 WBC (Bld) 3.0 % Normal 0-5 [facility] Comment on above: Performed By: #### L 100.0100, L500.4050 ####[facility] [address] [place], [address] Erythrocyte distribution width (RBC) [Ratio] 14.0 % Normal 11.6-14.6 [facility] Comment on above: Performed By: #### L 100.0100, L500.4050 ####[facility] [address] [place], [address] Hematocrit (Bld) [Volume fraction] 26.2 % Low 40-54 [facility] Comment on above: Performed By: #### L 100.0100, L500.4050 ####[facility] [address] [place], [address] Hemoglobin (Bld) [Mass/Vol] 8.6 g/dL Low 13.0-16.5 [facility] Comment on above: Performed By: #### L 100.0100, L500.4050 ####[facility] [address] [place], [address] IG% 0.200 Normal 0.0-0.9 [facility] Comment on above: Result Comment: IG% - Immature Granulocytes (promyelocytes, myelocytes andmetamyelocytes) > 1% indicates that a LEFT SHIFT is Present. Performed By: #### L 100.0100, L500.4050 ####[facility] [address] [place], [address] Lymphocytes/100 WBC (Bld) 27.6 % Normal 19-41 [facility] Comment on above: Performed By: #### L 100.0100, L500.4050 ####[facility] [address] [place], [address] MCH (RBC) [Entitic mass] 31.0 pg Normal 27.0-32.0 [facility] Comment on above: Performed By: #### L 100.0100, L500.4050 ####[facility] [address] [place], [address] MCHC (RBC) [Mass/Vol] 32.8 g/dL Normal 32-36 [facility] Comment on above: Performed By: #### L 100.0100, L500.4050 ####[facility] [address] [place], [address] MCV (RBC) [Entitic vol] 94.6 fL High 80-94 [facility] Comment on above: Performed By: #### L 100.0100, L500.4050 ####[facility] [address] [place], [address] Monocytes/100 WBC (Bld) 9.6 % Normal 0-10 [facility] Comment on above: Performed By: #### L 100.0100, L500.4050 ####[facility] [address] [place], [address] Neutrophils/100 WBC (Bld) 59.1 % Normal 47-70 [facility] Comment on above: Performed By: #### L 100.0100, L500.4050 ####[facility] [address] [place], [address] Nucleated RBC (Bld) [#/Vol] 0 10*3/uL Normal 0-5 [facility] Comment on above: Performed By: #### L 100.0100, L500.4050 ####[facility] [address] [place], [address] Platelet mean volume (Bld) [Entitic vol] 10.2 fL Normal 6.2-12.0 [facility] Comment on above: Performed By: #### L 100.0100, L500.4050 ####[facility] [address] [place], [address] Platelets (Bld) [#/Vol] 158 10*3/uL Normal 150-450 [facility] Comment on above: Performed By: #### L 100.0100, L500.4050 ####[facility] [address] [place], [address] RBC (Bld) [#/Vol] 2.77 10*6/uL Low 4.6-6.2 [facility] Comment on above: Performed By: #### L 100.0100, L500.4050 ####[facility] [address] [place], [address] RDW SD 48.0 fl High 35.1-43.9 [facility] Comment on above: Performed By: #### L 100.0100, L500.4050 ####[facility] [address] [place], [address] WBC (Bld) [#/Vol] 5.7 10*3/uL Normal 4.4-11.0 [facility] Comment on above: Performed By: #### L 100.0100, L500.4050 ####[facility] [address] [place], [address] Comprehensive Metabolic Prof [facility] 12-03-2024 Albumin [Mass/Vol] 3.3 g/dL Low 3.4-4.8 [facility] Comment on above: Performed By: #### L 100.0100, L500.4050 ####[facility] [address] [place], [address] Albumin/Globulin [Mass ratio] 1.0 {ratio} Normal 0.9-2.4 [facility] Comment on above: Performed By: #### L 100.0100, L500.4050 ####[facility] [address] [place], [address] ALK PHOS 77 U/L Normal 40-129 [facility] Comment on above: Performed By: #### L 100.0100, L500.4050 ####[facility] [address] [place], [address] ALT [Catalytic activity/Vol] 11 U/L Normal <=46 [facility] Comment on above: Performed By: #### L 100.0100, L500.4050 ####[facility] [address] [place], [address] AST [Catalytic activity/Vol] 18 U/L Normal <=37 [facility] Comment on above: Performed By: #### L 100.0100, L500.4050 ####[facility] [address] [place], [address] Bilirubin [Mass/Vol] 0.39 mg/dL Normal 0.00-1.30 [facility] Comment on above: Performed By: #### L 100.0100, L500.4050 ####[facility] [address] [place], [address] BUN/CRE 14.0 RATIO Normal 10-20 [facility] Comment on above: Performed By: #### L 100.0100, L500.4050 ####[facility] [address] [place], [address] Calcium [Mass/Vol] 8.4 mg/dL Normal 7.6-11.0 [facility] Comment on above: Performed By: #### L 100.0100, L500.4050 ####[facility] [address] [place], [address] Chloride [Moles/Vol] 102 mmol/L Normal 98-108 [facility] Comment on above: Performed By: #### L 100.0100, L500.4050 ####[facility] [address] [place], [address] CO2 [Moles/Vol] 28.1 mmol/L Normal 21.0-32.0 [facility] Comment on above: Performed By: #### L 100.0100, L500.4050 ####[facility] [address] [place], [address] Creatinine [Mass/Vol] 2.28 mg/dL High 0.70-1.20 [facility] Comment on above: Performed By: #### L 100.0100, L500.4050 ####[facility] [address] [place], [address] ECRCL 27.26 ml/min Low 50-250 [facility] Comment on above: Performed By: #### L 100.0100, L500.4050 ####[facility] [address] [place], [address] GAP 9 Normal 5-15 [facility] Comment on above: Performed By: #### L 100.0100, L500.4050 ####[facility] [address] [place], [address] GFR/1.73 sq M.predicted among non-blacks MDRD (S/P/Bld) [Vol rate/Area] 28 mL/min/{1.73_m2} Low >60 [facility] Comment on above: Result Comment: mL/m in/1.73m2 CKD-EPI Creatinine Equation (2020) Performed By: #### L 100.0100, L500.4050 ####[facility] [address] [place], [address] Globulin (S) [Mass/Vol] 3.3 g/dL Normal 2.2-4.2 [facility] Comment on above: Performed By: #### L 100.0100, L500.4050 ####[facility] [address] [place], [address] Glucose [Mass/Vol] 49 mg/dL Low 70-99 [facility] Comment on above: Performed By: #### L 100.0100, L500.4050 ####[facility] [address] [place], [address] Potassium [Moles/Vol] 3.8 mmol/L Normal 3.3-5.1 [facility] Comment on above: Performed By: #### L 100.0100, L500.4050 ####[facility] [address] [place], [address] Sodium [Moles/Vol] 139 mmol/L Normal 133-145 [facility] Comment on above: Performed By: #### L 100.0100, L500.4050 ####[facility] [address] [place], [address] T PROT 6.6 g/dL Normal 5.9-8.4 [facility] Comment on above: Performed By: #### L 100.0100, L500.4050 ####[facility] [address] [place], [address] Urea nitrogen [Mass/Vol] 32 mg/dL High 4-19 [facility] Comment on above: Performed By: #### L 100.0100, L500.4050 ####[facility] [address] [place], [address] L509.6001on 12-03-2024 CORTISOL 4.76 ug/dL Normal 2.68-10.50 [facility] Comment on above: Performed By: #### L 3300.1000, L506.0400, L509.6002, L501.9520, L509.6001 ####[facility] [address] [place], [place], [id number] Serum or plasma cortisol yordan surement (mass/volume)Ordered By: Afsaneh Kapoor on 12-03-2024 Cortisol [Mass/Vol] 4.76 ug/dL 2.68-10.50 [facility] T4 Free Directon 12-03-2024 T4 FREE DIRECT 0.80 ng/dL Normal 0.76-1.46 [facility] Comment on above: Performed By: #### L 3300.1000, L506.0400, L509.6002, L501.9520, L509.6001 ####[facility] [address] [place], [place], [id number] T4 freeOrdered By: Afsaneh Handy ite on 12-03-2024 Free T4 [Mass/Vol] 0.80 ng/dL 0.76-1.46 [facility] TSH DL <= 0.005 mIU/L QnOrde red By: Afsaneh Kapoor on 12-03-2024 TSH Qn 3.300 uIU/mL 0.300-4.200 [facility] Thyroid Stim Hormone (TSH)on 12-03-2024 TSH 3.300 uIU/mL Normal 0.300-4.200 [facility] Comment on above: Performed By: #### L 3300.1000, L506.0400, L509.6002, L501.9520, L509.6001 ####[facility] [address] [place], [place], [id number] [employer] Cheston Acute Abdomen Inc Chest Normal [facility] Anion gap in Serum or Plasma Ordered By: Tsering Emanuel on 12-02-2024 Anion gap [Moles/Vol] 12 mmol/L - [facility] BUN/creatinine ratioOrdered By: Tsering Emanuel on 12-02-2024 Urea nitrogen/Creatinine [Mass ratio] 15.3 mg/mg - [facility] Basic Metabolic Profile (BMP )on 12-02-2024 BUN/CRE 15.3 RATIO Normal 10-20 [facility] Comment on above: Performed By: #### L 500.2500, L100.0500 ####[facility] [address] [place], [address] Calcium [Mass/Vol] 8.7 mg/dL Normal 7.6-11.0 [facility] Comment on above: Performed By: #### L 500.2500, L100.0500 ####[facility] [address] [place], [address] Chloride [Moles/Vol] 102 mmol/L Normal 98-108 [facility] Comment on above: Performed By: #### L 500.2500, L100.0500 ####[facility] [address] [place], [address] CO2 [Moles/Vol] 25.5 mmol/L Normal 21.0-32.0 [facility] Comment on above: Performed By: #### L 500.2500, L100.0500 ####[facility] [address] [place], [address] Creatinine [Mass/Vol] 2.18 mg/dL High 0.70-1.20 [facility] Comment on above: Performed By: #### L 500.2500, L100.0500 ####[facility] [address] [place], [address] ECRCL 28.53 ml/min Low 50-250 [facility] Comment on above: Performed By: #### L 500.2500, L100.0500 ####[facility] [address] [place], [address] GAP 12 Normal 5-15 [facility] Comment on above: Performed By: #### L 500.2500, L100.0500 ####[facility] [address] [place], [address] GFR/1.73 sq M.predicted among non-blacks MDRD (S/P/Bld) [Vol rate/Area] 29 mL/min/{1.73_m2} Low >60 [facility] Comment on above: Result Comment: mL/m in/1.73m2 CKD-EPI Creatinine Equation (2020) Performed By: #### L 500.2500, L100.0500 ####[facility] [address] [place], [address] Glucose [Mass/Vol] 77 mg/dL Normal 70-99 [facility] Comment on above: Performed By: #### L 500.2500, L100.0500 ####[facility] [address] [place], [address] Potassium [Moles/Vol] 4.3 mmol/L Normal 3.3-5.1 [facility] Comment on above: Result Comment: Hemo lysis present, Results??could be affected.?? Performed By: #### L 500.2500, L100.0500 ####[facility] [address] [place], [address] Sodium [Moles/Vol] 140 mmol/L Normal 133-145 [facility] Comment on above: Performed By: #### L 500.2500, L100.0500 ####[facility] [address] [place], [address] Urea nitrogen [Mass/Vol] 33 mg/dL High 4-19 [facility] Comment on above: Performed By: #### L 500.2500, L100.0500 ####[facility] [address] [place], [address] Bedside Glucoseon 12-02-2024 FINGERSTICK GLU 203 mg/dL High 74-106 [facility] Comment on above: Result Comment: ROBERTO GEMENT OF PATIENT CARE PER NURSING PROTOCOL Performed By: #### L 501.080 ####[facility] [address] [place], [address] FINGERSTICK GLU 199 mg/dL High 74-106 [facility] Comment on above: Result Comment: ROBERTO GEMENT OF PATIENT CARE PER NURSING PROTOCOL Performed By: #### L 501.080 ####[facility] [address] [place], [address] FINGERSTICK GLU 108 mg/dL High 74-106 [facility] Comment on above: Result Comment: ROBERTO GEMENT OF PATIENT CARE PER NURSING PROTOCOL Performed By: #### L 501.080 ####[facility] [address] [place], [address] FINGERSTICK GLU 78 mg/dL Normal 74-106 [facility] Comment on above: Result Comment: ROBERTO GEMENT OF PATIENT CARE PER NURSING PROTOCOL Performed By: #### L 501.080 ####[facility] [address] [place], [address] FINGERSTICK GLU 74 mg/dL Normal 74-106 [facility] Comment on above: Result Comment: ROBERTO GEMENT OF PATIENT CARE PER NURSING PROTOCOL Performed By: #### L 501.080 ####[facility] [address] [place], [address] Bilirubin Test strip Ql (U)O rdered By: Tsering Emanuel on 12-02-2024 Bilirubin Ql (U) Negative Negative [facility] Brain/Head without Contrasto n 12-02-2024 Brain/Head without Contrast Normal [facility] CBC-Complete Blood Cnt No Di ffon 12-02-2024 Erythrocyte distribution width (RBC) [Ratio] 13.8 % Normal 11.6-14.6 [facility] Comment on above: Performed By: #### L 500.2500, L100.0500 ####[facility] [address] [place], [address] Hematocrit (Bld) [Volume fraction] 29.5 % Low 40-54 [facility] Comment on above: Performed By: #### L 500.2500, L100.0500 ####[facility] [address] [place], [address] Hemoglobin (Bld) [Mass/Vol] 9.8 g/dL Low 13.0-16.5 [facility] Comment on above: Performed By: #### L 500.2500, L100.0500 ####[facility] [address] [place], [address] MCH (RBC) [Entitic mass] 31.3 pg Normal 27.0-32.0 [facility] Comment on above: Performed By: #### L 500.2500, L100.0500 ####[facility] [address] [place], [address] MCHC (RBC) [Mass/Vol] 33.2 g/dL Normal 32-36 [facility] Comment on above: Performed By: #### L 500.2500, L100.0500 ####[facility] [address] [place], [address] MCV (RBC) [Entitic vol] 94.2 fL High 80-94 [facility] Comment on above: Performed By: #### L 500.2500, L100.0500 ####[facility] [address] [place], [address] Platelet mean volume (Bld) [Entitic vol] 10.2 fL Normal 6.2-12.0 [facility] Comment on above: Performed By: #### L 500.2500, L100.0500 ####[facility] [address] [place], [address] Platelets (Bld) [#/Vol] 173 10*3/uL Normal 150-450 [facility] Comment on above: Performed By: #### L 500.2500, L100.0500 ####[facility] [address] [place], [address] RBC (Bld) [#/Vol] 3.13 10*6/uL Low 4.6-6.2 [facility] Comment on above: Performed By: #### L 500.2500, L100.0500 ####[facility] [address] [place], [address] RDW SD 46.7 fl High 35.1-43.9 [facility] Comment on above: Performed By: #### L 500.2500, L100.0500 ####[facility] [address] [place], [address] WBC (Bld) [#/Vol] 9.6 10*3/uL Normal 4.4-11.0 [facility] Comment on above: Performed By: #### L 500.2500, L100.0500 ####[facility] [address] [place], [address] Carbon dioxide, total [Moles /volume] in Central venous bloodOrdered By: Tsering Emanuel on 12-02-2024 CO2 [Moles/Vol] 25.5 mmol/L 21.0-32.0 [facility] Chloride assayOrdered By: Maksim Emanuel on 12-02-2024 Chloride [Moles/Vol] 102 mmol/L 98-108 [facility] Emergency Department Summary on 12-02-2024 Emergency Department Summary Normal [facility] Erythrocyte distribution wid th ratioOrdered By: Tsering Emanuel on 12-02-2024 Erythrocyte distribution width (RBC) [Ratio] 13.8 % 11.6-14.6 [facility] Erythrocyte distribution wid th standard deviationOrdered By: Tsering Emanuel on 12-02-2024 Erythrocyte distribution width (RBC) [Ratio] 46.7 fl High 35.1-43.9 [facility] Glomerular filtration rate ( GFR) estimation/1.73 sq m using serum, plasma, or whole bOrdered By: Tsering Emanuel on 12-02-2024 GFR/1.73 sq M.predicted among non-blacks MDRD (S/P/Bld) [Vol rate/Area] 29 mL/min/{1.73_m2} Low >60 [facility] Comment on above: mL/min/1.73m2 CKD-EP I Creatinine Equation (2020) Glucose measurement at bedsi deOrdered By: Tsering Emanuel on 12-02-2024 Glucose [Mass/Vol] 78 mg/dL 74-106 [facility] Comment on above: MANAGEMENT OF PATIEN T CARE PER NURSING PROTOCOL H AND P Exam - Hospitaliston 12-02-2024 H&P Exam - Hospitalist Normal [facility] Hematocrit Auto (Bld) [Volum e fraction]Ordered By: Tsering Emanuel on 12-02-2024 Hematocrit (Bld) [Volume fraction] 29.5 % Low 40-54 [facility] Hemoglobin A1con 12-02-2024 HbA1c (Bld) [Mass fraction] 6.9 % High <=5.6 [facility] Comment on above: Order Comment: Comme nts: may add onto ED labs Result Comment: Norm al < 5.7 % Prediabetic 5.7 - 6.4 % Diabetic >or= 6.5 % Please note range changes. Performed By: #### L 501.9985 ####[facility] [address] [place], [place], [id number] Hemoglobin A1c percentageOrd ered By: Afsaneh Kapoor on 12-02-2024 HbA1c (Bld) [Mass fraction] 6.9 % High <5.7 [facility] Comment on above: Normal < 5.7 % Predi abetic 5.7 - 6.4 % Diabetic >or= 6.5 % Please note range changes. Hemoglobin measurementOrdere d By: Tsering Emanuel on 12-02-2024 Hemoglobin (Bld) [Mass/Vol] 9.8 g/dL Low 13.0-16.5 [facility] Ketones Test strip Ql (U)Ord ered By: Tsering Emanuel on 12-02-2024 Ketones Ql (U) Negative Negative [facility] L509.7001on 12-02-2024 Procalcitonin 0.03 ng/mL Normal <=0.10 [facility] Comment on above: Order Comment: Comme nts: may add to ED labs Result Comment: Inte rpretation:<0.10-0.25 ng/mL: Antibiotic therapy discouraged. Bacterialinfection unlikely.0.25-0.50 ng/mL: Antibiotic therapy encouraged. Bacterialinfection possible.>0.50 ng/mL: Antibiotic therapy strongly encouraged.Suggestive of presence of bacterial infection.PCT should always be interpreted in the clinical context ofthe patient. Therefore, clinicians should use the PCTresults in conjunction with other laboratory findings andclinical signs of the patient. Performed By: #### L 501.5200, L509.7001 ####[facility] [address] [place], [place], [address] MCV (mean corpuscular volume ) determinationOrdered By: Tsering Emanuel on 12-02-2024 MCV (RBC) [Entitic vol] 94.2 fL High 80-94 [facility] Magnesiumon 12-02-2024 Magnesium [Mass/Vol] 2.3 mg/dL High 1.5-2.2 [facility] Comment on above: Order Comment: Comme nts: may add to ED labs Performed By: #### L 501.5200, L509.7001 ####[facility] [address] [place], [place], [address] Magnesium measurement (mass/ volume)Ordered By: Afsaneh Kapoor on 12-02-2024 Magnesium (Unsp spec) [Mass/Vol] 2.3 mg/dL High 1.5-2.2 [facility] Mean corpuscular hemoglobin (MCH) determinationOrdered By: Tsering Emanuel on 12-02-2024 MCH (RBC) [Entitic mass] 31.3 pg 27.0-32.0 [facility] Mean corpuscular hemoglobin concentration (MCHC) determinationOrdered By: Tsering Emanuel on 12-02-2024 MCHC (RBC) [Mass/Vol] 33.2 g/dL 32-36 [facility] Mean platelet volume determi nationOrdered By: Tsering Emanuel on 12-02-2024 Platelet mean volume (Bld) [Entitic vol] 10.2 fL 6.2-12.0 [facility] Microscopic analysis of urin e for red blood cells (RBC)Ordered By: Tsering Emanuel on 12-02-2024 Microscopic analysis of urine for red blood cells (RBC) 0 SEEN /hpf 0-5 [facility] Mucus LM Ql (Urine sed)Order ed By: Tsering Emanuel on 12-02-2024 Mucus Ql (Urine sed) 0 SEEN /hpf [facility] Nitrite Test strip Ql (U)Ord ered By: Tsering Emanuel on 12-02-2024 Nitrite Ql (U) Negative Negative [facility] Platelet countOrdered By: Maksim Emanuel on 12-02-2024 Platelets (Bld) [#/Vol] 173 10*3/uL 150-450 [facility] Potassium measurement (mass/ volume)Ordered By: Tsering Emanuel on 12-02-2024 Potassium (Unsp spec) [Mass/Vol] 4.3 mmol/L 3.3-5.1 [facility] Comment on above: Hemolysis present, R esults could be affected. Procalcitonin [Mass/volume] in Serum or Plasma by ImmunoassayOrdered By: Afsaneh Kapoor on 12-02-2024 Procalcitonin IA [Mass/Vol] 0.03 ng/mL <0.11 [facility] Comment on above: Interpretation:<0.10 -0.25 ng/mL: Antibiotic therapy discouraged. Bacterial infection unlikely.0.25-0.50 ng/mL: Antibiotic therapy encouraged. Bacterial infection possible.>0.50 ng/mL: Antibiotic therapy strongly encouraged. Suggestive of presence of bacterial infection.PCT should always be interpreted in the clinical context of the patient. Therefore, clinicians should use the PCT results in conjunction with other laboratory findings and clinical signs of the patient. Protein Test strip Ql (U)Ord ered By: Tsering Emanuel on 12-02-2024 Protein Ql (U) Negative Negative [facility] RBC Auto (Bld) [#/Vol]Ordere d By: Tsering Emanuel on 12-02-2024 RBC (Bld) [#/Vol] 3.13 10*6/uL Low 4.6-6.2 [facility] Serum creatinine measurement (mass/volume)Ordered By: Tsering Emanuel on 12-02-2024 Creatinine [Mass/Vol] 2.18 mg/dL High 0.70-1.20 [facility] Serum glucose measurement (m ass/volume)Ordered By: Tsering Emanuel on 12-02-2024 Glucose [Mass/Vol] 77 mg/dL 70-99 [facility] Serum or plasma calcium keven urement (mass/volume)Ordered By: Tsering Emanuel on 12-02-2024 Calcium [Mass/Vol] 8.7 mg/dL 7.6-11.0 [facility] Serum or plasma urea nitroge n measurement (mass/volume)Ordered By: Tsering Emanuel on 12-02-2024 Urea nitrogen [Mass/Vol] 33 mg/dL High 4-19 [facility] Sodium levelOrdered By: Juan Emanuel on 12-02-2024 Sodium [Moles/Vol] 140 mmol/L 133-145 [facility] Squamous epithelial cells de tection in urine sediment by light microscopyOrdered By: Tsering Emanuel on 12-02-2024 Epithelial cells.squamous LM Ql (Urine sed) 0 SEEN /hpf 0-5 [facility] Urinalysis, Completeon 12-02 BACTERIA 0 SEEN Normal None Seen [facility] Comment on above: Order Comment: SHANELL CTOR TO SPECIFY Performed By: #### L 400.0001 ####[facility] [address] [place], [place], [id number] EPI,SQUAMOUS 0 SEEN Normal 0-5 [facility] Comment on above: Order Comment: SHANELL CTOR TO SPECIFY Performed By: #### L 400.0001 ####[facility] [address] [place], [address] Mucus Ql (Urine sed) 0 SEEN Normal [facility] Comment on above: Order Comment: SHANELL CTOR TO SPECIFY Performed By: #### L 400.0001 ####[facility] [address] [place], [address] RBC 0 SEEN Normal 0-5 [facility] Comment on above: Order Comment: SHANELL CTOR TO SPECIFY Performed By: #### L 400.0001 ####[facility] [address] [place], [address] WBC 0 SEEN Normal 0-5 [facility] Comment on above: Order Comment: COLLE CTOR TO SPECIFY Performed By: #### L 400.0001 ####[facility] [address] [place], [place], [address] Urine clarityOrdered By: Taylor Emanuel on 12-02-2024 Clarity (U) Clear Clear [facility] Urine color determinationOrd ered By: Tsering Emanuel on 12-02-2024 Color (U) Yellow Yellow [facility] Urine glucose detectionOrder ed By: Tsering Emanuel on 12-02-2024 Glucose Ql (U) Normal mg/dl Normal [facility] Urine leukocyte esterase det ection by dipstickOrdered By: Tsering Emanuel on 12-02-2024 Leukocyte esterase Test strip Ql (U) Negative Negative [facility] Urine pHOrdered By: Tsering cutler on 12-02-2024 pH (U) 7.0 [pH] 5.0 - 8.0 [facility] Urine sediment bacteria coun t by microscopy (number/high power field)Ordered By: Tsering Emanuel on 12-02-2024 Bacteria LM.HPF (Urine sed) [#/Area] 0 /[HPF] None Seen [facility] Urine specific gravity measu rementOrdered By: Tsering Emanuel on 12-02-2024 Specific gravity (U) [Rel density] 1.010 1.002-1.030 [facility] Urine urobilinogen measureme ntOrdered By: Tsering Emanuel on 12-02-2024 Urobilinogen Ql (U) Normal mg/dl Normal [facility] White blood cell (WBC) count Ordered By: Tsering Emanuel on 12-02-2024 WBC (Bld) [#/Vol] 9.6 10*3/uL 4.4-11.0 [facility] White blood cell countOrdere d By: Tsering Emanuel on 12-02-2024 White blood cell count 0 SEEN /hpf 0-5 [facility] Cardiology Visit Reporton Cardiology Visit Report Normal [facility] Absolute lymphocyte countOrd ered By: Trae Madsen on 11-21-2024 Lymphocytes Auto (Unsp spec) [#/Vol] 1.23 10*3/uL 0.83-4.51 [facility] Absolute lymphocyte countOrd ered By: Kain Bhakta on 11-21-2024 Lymphocytes Auto (Unsp spec) [#/Vol] 1.06 10*3/uL 0.83-4.51 [facility] Absolute neutrophil countOrd ered By: Trae Madsen on 11-21-2024 Neutrophils (Bld) [#/Vol] 4.6 10*3/uL 2.0-7.7 [facility] Absolute neutrophil countOrd ered By: Kain Bhakta on 11-21-2024 Neutrophils (Bld) [#/Vol] 3.7 10*3/uL 2.0-7.7 [facility] Activated partial thrombopla stin time (aPTT) in platelet poor plasma by coagulation aOrdered By: Trae Madsen on 11-21-2024 aPTT Coag (PPP) [Time] 33.9 s 24.1-36.2 [facility] Anion gap in Serum or Plasma Ordered By: Trae Madsen on 11-21-2024 Anion gap [Moles/Vol] 19 mmol/L High 5-15 [facility] Anion gap in Serum or Plasma Ordered By: Kain Bhakta on 11-21-2024 Anion gap [Moles/Vol] 29 mmol/L [address] [facility] Comment on above: Previous reported re sult: 30 Edited by: LEONCIO on 11/21/24:1124 AMENDED REPORT 11/21/24 1124 GAP previously reported as: 30 H Assessment of wrist artery p atency prior to arterial punctureOrdered By: Trae Madsen on 11-21-2024 Arterial patency Wrist artery --pre arterial puncture N/A [facility] Automated lymphocyte count a s percentage of total leukocytesOrdered By: Trae Madsen on 11-21-2024 Lymphocytes/100 WBC Auto (Unsp spec) 18.5 % Low 19-41 [facility] Automated lymphocyte count a s percentage of total leukocytesOrdered By: Kain Bhakta on 11-21-2024 Lymphocytes/100 WBC Auto (Unsp spec) 19.5 % [facility] BUN/creatinine ratioOrdered By: Trae Madsen on 11-21-2024 Urea nitrogen/Creatinine [Mass ratio] 20.0 mg/mg 03-06 [facility] BUN/creatinine ratioOrdered By: Kain Bhakta on 11-21-2024 Urea nitrogen/Creatinine [Mass ratio] 1.8 mg/mg Low 03-06 [facility] Basic Metabolic Profile (BMP )on 11-21-2024 BUN/CRE 20.0 RATIO Normal 03-06 [facility] [facility] Comment on above: Performed By: #### L 100.0100, L501.5200, L503.7505, L500.2500, L501.4021 ####[facility] [address] [place], [address] Calcium [Mass/Vol] 8.2 mg/dL Normal 7.6-11.0 [facility] Comment on above: Performed By: #### L 100.0100, L501.5200, L503.7505, L500.2500, L501.4021 ####[facility] [address] [place], [address] Chloride [Moles/Vol] 101 mmol/L Normal 98-108 [facility] Comment on above: Performed By: #### L 100.0100, L501.5200, L503.7505, L500.2500, L501.4021 ####[facility] [address] [place], [address] CO2 [Moles/Vol] 19.1 mmol/L Low 21.0-32.0 [facility] Comment on above: Performed By: #### L 100.0100, L501.5200, L503.7505, L500.2500, L501.4021 ####[facility] [address] [place], [address] Creatinine [Mass/Vol] 2.32 mg/dL High 0.70-1.20 [facility] Comment on above: Performed By: #### L 100.0100, L501.5200, L503.7505, L500.2500, L501.4021 ####[facility] [address] [place], [address] ECRCL 26.82 ml/min Low 50-250 [facility] Comment on above: Performed By: #### L 100.0100, L501.5200, L503.7505, L500.2500, L501.4021 ####[facility] [address] [place], [address] GAP 19 High 5-15 [facility] Comment on above: Performed By: #### L 100.0100, L501.5200, L503.7505, L500.2500, L501.4021 ####[facility] [address] [place], [address] GFR/1.73 sq M.predicted among non-blacks MDRD (S/P/Bld) [Vol rate/Area] 27 mL/min/{1.73_m2} Low >60 [facility] Comment on above: Result Comment: mL/m in/1.73m2 CKD-EPI Creatinine Equation (2020) Performed By: #### L 100.0100, L501.5200, L503.7505, L500.2500, L501.4021 ####[facility] [address] [place], [address] Glucose [Mass/Vol] 196 mg/dL High 70-99 [facility] Comment on above: Performed By: #### L 100.0100, L501.5200, L503.7505, L500.2500, L501.4021 ####[facility] [address] [place], [address] Potassium [Moles/Vol] 4.6 mmol/L Normal 3.3-5.1 [facility] Comment on above: Performed By: #### L 100.0100, L501.5200, L503.7505, L500.2500, L501.4021 ####[facility] [address] [place], [address] Sodium [Moles/Vol] 140 mmol/L Normal 133-145 [facility] Comment on above: Performed By: #### L 100.0100, L501.5200, L503.7505, L500.2500, L501.4021 ####[facility] [address] [place], [address] Urea nitrogen [Mass/Vol] 46 mg/dL High 4-19 [facility] Comment on above: Result Comment: CALL ED TO [facility] AT 1542 ON 11/21/24 BY NILSON. RESULTSREAD BACK BY SAME. Performed By: #### L 100.0100, L501.5200, L503.7505, L500.2500, L501.4021 ####[facility] [address] [place], [address] Basophil percentageOrdered B y: Trae Madsen on 11-21-2024 Basophils/100 WBC (Bld) 0.5 % 0-1 [facility] Basophil percentageOrdered B y: Kain Bhakta on 11-21-2024 Basophils/100 WBC (Bld) 0.6 % 0-1 [facility] Bilirubin, totalOrdered By: Kain Bhakta on 11-21-2024 Bilirubin [Mass/Vol] mg/dL 0.00-1.30 [facility] RHEA [facility] N/A Normal [facility] Comment on above: Performed By: #### L 9000.0800 ####[facility] [address] [place], [address] Base excess Calc (Bld) [Moles/Vol] 12 mmol/L High -2 to +2 [facility] Comment on above: Performed By: #### L 0.0800 ####[facility] [address] [place], [address] Blood Gas Type ART Normal [facility] Comment on above: Performed By: #### L 0.08 ####[facility] [address] [place], [address] CO2 [Moles/Vol] 39 mmol/L Normal [facility] Comment on above: Performed By: #### L 0.0800 ####[facility] [address] [place], [address] FI02 2.0 Normal [facility] Comment on above: Performed By: #### L 0.0800 ####[facility] [address] [place], [address] HCO3 (Bld) [Moles/Vol] 36.7 mmol/L High 22-26 [facility] Comment on above: Performed By: #### L 0.0800 ####[facility] [address] [place], [address] Mode Not entered [facility] Comment on above: Performed By: #### L 0.0800 ####[facility] [address] [place], [address] O2 Delivery Dev Cannula Normal [facility] Comment on above: Performed By: #### L 0.0800 ####[facility] [address] [place], [address] pCO2 60.3 mmHg High 35-45 [facility] Comment on above: Performed By: #### L 0.0800 ####[facility] [address] [place], [address] pH (Bld) 7.39 [pH] Normal 7.35-7.45 [facility] Comment on above: Performed By: #### L 9000.0800 ####[facility] [address] [place], [address] PO2 98 mmHG Normal 75-100 [facility] Comment on above: Performed By: #### L 9000.0800 ####[facility] [address] [place], [address] SITE L Brach Normal [facility] Comment on above: Performed By: #### L 0.0800 ####[facility] [address] [place], [address] SO2 97 Normal 95-99 [facility] Comment on above: Performed By: #### L 0.0800 ####[facility] [address] [place], [address] Blood base excess determinat ionOrdered By: Trae Madsen on 11-21-2024 Base excess Calc (BldV) [Moles/Vol] 12 mmol/L High -2-2 [facility] Blood bicarbonate measuremen tOrdered By: Trae Madsen on 11-21-2024 HCO3 (Bld) [Moles/Vol] 36.7 mmol/L [facility] 22-26 [facility] CBC W/Diff, Automatedon 07-0 Absolute Lymph 1.23 X10 3/uL Normal 0.83-4.51 [facility] Comment on above: Performed By: #### L 100.0100, L501.5200, L503.7505, L500.2500, L501.4021 ####[facility] [address] [place], [address] Absolute Neut 4.6 X10 3/uL Normal 2.0-7.7 [facility] Comment on above: Performed By: #### L 100.0100, L501.5200, L503.7505, L500.2500, L501.4021 ####[facility] [address] [place], [address] Basophils/100 WBC (Bld) 0.5 % Normal 0-1 [facility] Comment on above: Performed By: #### L 100.0100, L501.5200, L503.7505, L500.2500, L501.4021 ####[facility] [address] [place], [address] Eosinophils/100 WBC (Bld) 3.2 % Normal 0-5 [facility] Comment on above: Performed By: #### L 100.0100, L501.5200, L503.7505, L500.2500, L501.4021 ####[facility] [address] [place], [address] Erythrocyte distribution width (RBC) [Ratio] 13.3 % Normal 11.6-14.6 [facility] Comment on above: Performed By: #### L 100.0100, L501.5200, L503.7505, L500.2500, L501.4021 ####[facility] [address] [place], [address] Hematocrit (Bld) [Volume fraction] 27.2 % Low 40-54 [facility] Comment on above: Performed By: #### L 100.0100, L501.5200, L503.7505, L500.2500, L501.4021 ####[facility] [address] [place], [address] Hemoglobin (Bld) [Mass/Vol] 8.7 g/dL Low 13.0-16.5 [facility] Comment on above: Performed By: #### L 100.0100, L501.5200, L503.7505, L500.2500, L501.4021 ####[facility] [address] [place], [address] IG% 0.500 Normal 0.0-0.9 [facility] Comment on above: Result Comment: IG% - Immature Granulocytes (promyelocytes, myelocytes andmetamyelocytes) > 1% indicates that a LEFT SHIFT is Present. Performed By: #### L 100.0100, L501.5200, L503.7505, L500.2500, L501.4021 ####[facility] [address] [place], [address] Lymphocytes/100 WBC (Bld) 18.5 % Low 19-41 [facility] Comment on above: Performed By: #### L 100.0100, L501.5200, L503.7505, L500.2500, L501.4021 ####[facility] [address] [place], [address] MCH (RBC) [Entitic mass] 30.6 pg Normal 27.0-32.0 [facility] Comment on above: Performed By: #### L 100.0100, L501.5200, L503.7505, L500.2500, L501.4021 ####[facility] [address] [place], [address] MCHC (RBC) [Mass/Vol] 32.0 g/dL Normal 32-36 [facility] Comment on above: Performed By: #### L 100.0100, L501.5200, L503.7505, L500.2500, L501.4021 ####[facility] [address] [place], [address] MCV (RBC) [Entitic vol] 95.8 fL High 80-94 [facility] Comment on above: Performed By: #### L 100.0100, L501.5200, L503.7505, L500.2500, L501.4021 ####[facility] [address] [place], [address] Monocytes/100 WBC (Bld) 8.7 % Normal 0-10 [facility] Comment on above: Performed By: #### L 100.0100, L501.5200, L503.7505, L500.2500, L501.4021 ####[facility] [address] [place], [address] Neutrophils/100 WBC (Bld) 68.6 % Normal 47-70 [facility] Comment on above: Performed By: #### L 100.0100, L501.5200, L503.7505, L500.2500, L501.4021 ####[facility] [address] [place], [address] Nucleated RBC (Bld) [#/Vol] 0 10*3/uL Normal 0-5 [facility] Comment on above: Performed By: #### L 100.0100, L501.5200, L503.7505, L500.2500, L501.4021 ####[facility] [address] [place], [address] Platelet mean volume (Bld) [Entitic vol] 9.6 fL Normal 6.2-12.0 [facility] Comment on above: Performed By: #### L 100.0100, L501.5200, L503.7505, L500.2500, L501.4021 ####[facility] [address] [place], [address] Platelets (Bld) [#/Vol] 182 10*3/uL Normal 150-450 [facility] Comment on above: Performed By: #### L 100.0100, L501.5200, L503.7505, L500.2500, L501.4021 ####[facility] [address] [place], [address] RBC (Bld) [#/Vol] 2.84 10*6/uL Low 4.6-6.2 [facility] Comment on above: Performed By: #### L 100.0100, L501.5200, L503.7505, L500.2500, L501.4021 ####[facility] [address] [place], [address] RDW SD 46.6 fl High 35.1-43.9 [facility] Comment on above: Performed By: #### L 100.0100, L501.5200, L503.7505, L500.2500, L501.4021 ####[facility] [address] [place], [address] WBC (Bld) [#/Vol] 6.7 10*3/uL Normal 4.4-11.0 [facility] Comment on above: Performed By: #### L 100.0100, L501.5200, L503.7505, L500.2500, L501.4021 ####[facility] [address] [place], [address] Absolute Lymph 1.06 X10 3/uL Normal 0.83-4.51 [facility] Comment on above: Performed By: #### L 506.1001, L100.0100, L501.9520, L500.4050 ####[facility] [address] [place], [address] Absolute Neut 3.7 X10 3/uL Normal 2.0-7.7 [facility] Comment on above: Performed By: #### L 506.1001, L100.0100, L501.9520, L500.4050 ####[facility] [address] [place], [address] Basophils/100 WBC (Bld) 0.6 % Normal 0-1 [facility] Comment on above: Performed By: #### L 506.1001, L100.0100, L501.9520, L500.4050 ####[facility] [address] [place], [address] Eosinophils/100 WBC (Bld) 3.1 % Normal 0-5 [facility] Comment on above: Performed By: #### L 506.1001, L100.0100, L501.9520, L500.4050 ####[facility] [address] [place], [address] Erythrocyte distribution width (RBC) [Ratio] 13.4 % Normal 11.6-14.6 [facility] Comment on above: Performed By: #### L 506.1001, L100.0100, L501.9520, L500.4050 ####[facility] [address] [place], [address] Hematocrit (Bld) [Volume fraction] 30.0 % Low 40-54 [facility] Comment on above: Performed By: #### L 506.1001, L100.0100, L501.9520, L500.4050 ####[facility] [address] [place], [address] Hemoglobin (Bld) [Mass/Vol] 9.8 g/dL Low 13.0-16.5 [facility] Comment on above: Performed By: #### L 506.1001, L100.0100, L501.9520, L500.4050 ####[facility] [address] [place], [address] IG% 0.400 Normal 0.0-0.9 [facility] Comment on above: Result Comment: IG% - Immature Granulocytes (promyelocytes, myelocytes andmetamyelocytes) > 1% indicates that a LEFT SHIFT is Present. Performed By: #### L 506.1001, L100.0100, L501.9520, L500.4050 ####[facility] [address] [place], [address] Lymphocytes/100 WBC (Bld) 19.5 % Normal 19-41 [facility] Comment on above: Performed By: #### L 506.1001, L100.0100, L501.9520, L500.4050 ####[facility] [address] [place], [address] MCH (RBC) [Entitic mass] 31.1 pg Normal 27.0-32.0 [facility] Comment on above: Performed By: #### L 506.1001, L100.0100, L501.9520, L500.4050 ####[facility] [address] [place], [address] MCHC (RBC) [Mass/Vol] 32.7 g/dL Normal 32-36 [facility] Comment on above: Performed By: #### L 506.1001, L100.0100, L501.9520, L500.4050 ####[facility] [address] [place], [address] MCV (RBC) [Entitic vol] 95.2 fL High 80-94 [facility] Comment on above: Performed By: #### L 506.1001, L100.0100, L501.9520, L500.4050 ####[facility] [address] [place], [address] Monocytes/100 WBC (Bld) 8.5 % Normal 0-10 [facility] Comment on above: Performed By: #### L 506.1001, L100.0100, L501.9520, L500.4050 ####[facility] [address] [place], [address] Neutrophils/100 WBC (Bld) 67.9 % Normal 47-70 [facility] Comment on above: Performed By: #### L 506.1001, L100.0100, L501.9520, L500.4050 ####[facility] [address] [place], [address] Nucleated RBC (Bld) [#/Vol] 0 10*3/uL Normal 0-5 [facility] Comment on above: Performed By: #### L 506.1001, L100.0100, L501.9520, L500.4050 ####[facility] [address] [place], [address] Platelet mean volume (Bld) [Entitic vol] 9.8 fL Normal 6.2-12.0 [facility] Comment on above: Performed By: #### L 506.1001, L100.0100, L501.9520, L500.4050 ####[facility] [address] [place], [address] Platelets (Bld) [#/Vol] 182 10*3/uL Normal 150-450 [facility] Comment on above: Performed By: #### L 506.1001, L100.0100, L501.9520, L500.4050 ####[facility] [address] [place], [address] RBC (Bld) [#/Vol] 3.15 10*6/uL Low 4.6-6.2 [facility] Comment on above: Performed By: #### L 506.1001, L100.0100, L501.9520, L500.4050 ####[facility] [address] [place], [address] RDW SD 46.9 fl High 35.1-43.9 [facility] Comment on above: Performed By: #### L 506.1001, L100.0100, L501.9520, L500.4050 ####[facility] [address] [place], [address] WBC (Bld) [#/Vol] 5.4 10*3/uL Normal 4.4-11.0 [facility] Comment on above: Performed By: #### L 506.1001, L100.0100, L501.9520, L500.4050 ####[facility] [address] [place], [address] Carbon dioxide, total [Moles /volume] in Central venous bloodOrdered By: Trae Madsen on 11-21-2024 CO2 [Moles/Vol] 19.1 mmol/L Low 21.0-32.0 [facility] Carbon dioxide, total [Moles /volume] in Central venous bloodOrdered By: Kain Bhakta on 11-21-2024 CO2 [Moles/Vol] 8.1 mmol/L Low 21.0-32.0 [facility] Comment on above: Critical Result(s) C alled to: Grazyna ZUNIGA (POLAB) by: Robert Results read back by same. Critical Result(s) Called at: by: Results read back by same.Previous reported result: 8.1 mmol/LEdited by: AUTOINS on 11/21/24:1124 AMENDED REPORT 11/21/24 1124 CO2 previously reported as: 8.1 *L mmol/L Critical Result(s) Called to: Grazyna ZUNIGA (POLAB) by: Robert Results read back by sami.Previous reported result: 8.8 mmol/LEdited by: MSTONER on 11/21/24:1125 AMENDED REPORT 11/21/24 1125 CO2 previously reported as: 8.8 *L mmol/L Critical Result(s) Called to: Grazyna ZUNIGA (POLAB) by: Robert Results read back by sami. Critical Result(s) Called at: by: Results read back by same. Chest PA and Lateralon 11-21 Chest PA and Lateral Normal [facility] Chloride assayOrdered By: Arnoldo Madsen on 11-21-2024 Chloride [Moles/Vol] 101 mmol/L 98-108 [facility] Chloride assayOrdered By: Miah Bhakta on 11-21-2024 Chloride [Moles/Vol] 101 mmol/L 98-108 [facility] Comprehensive Metabolic Prof ilon 11-21-2024 CO2 [Moles/Vol] 8.1 mmol/L Invalid Interpretation Code 21.0-32.0 [facility] Comment on above: Result Comment: Crit ical Result(s) Called to: Grazyna ZUNIGA (POLAB) by:Robert??Results read back by same.Critical Result(s) Called at: by:??Results read back bysame. AMENDED REPORT 11/21/24 1125 CO2 previously reported as: 8.8 *L mmol/LCritical Result(s) Called to: Grazyna ZUNIGA (POLAB) by:Robert??Results read back by same.Critical Result(s) Called at: by:??Results read back bysame. Performed By: #### L 506.1001, L100.0100, L501.9520, L500.4050 ####[facility] [address] [place], [address] Emergency Department Summary on 11-21-2024 Emergency Department Summary Normal [facility] Eosinophil percentageOrdered By: Trae Madsen on 11-21-2024 Eosinophils/100 WBC (Bld) 3.2 % 0-5 [facility] Eosinophil percentageOrdered By: Kain Bhakta on 11-21-2024 Eosinophils/100 WBC (Bld) 3.1 % 0-5 [facility] Erythrocyte distribution wid th ratioOrdered By: Trae Madsen on 11-21-2024 Erythrocyte distribution width (RBC) [Ratio] 13.3 % 11.6-14.6 [facility] Erythrocyte distribution wid th ratioOrdered By: Kain Bhakta on 11-21-2024 Erythrocyte distribution width (RBC) [Ratio] 13.4 % 11.6-14.6 [facility] Erythrocyte distribution wid th standard deviationOrdered By: Trae Madsen on 11-21-2024 Erythrocyte distribution width (RBC) [Ratio] 46.6 fl High 35.1-43.9 [facility] Erythrocyte distribution wid th standard deviationOrdered By: Kain Bhakta on 11-21-2024 Erythrocyte distribution width (RBC) [Ratio] 46.9 fl High 35.1-43.9 [facility] Glomerular filtration rate ( GFR) estimation/1.73 sq m using serum, plasma, or whole bOrdered By: Trae Madsen on 11-21-2024 GFR/1.73 sq M.predicted among non-blacks MDRD (S/P/Bld) [Vol rate/Area] 27 mL/min/{1.73_m2} Low >60 [facility] Comment on above: mL/min/1.73m2 CKD-EP I Creatinine Equation (2020) Glomerular filtration rate ( GFR) estimation/1.73 sq m using serum, plasma, or whole bOrdered By: Kain Bhakta on 11-21-2024 GFR/1.73 sq M.predicted among non-blacks MDRD (S/P/Bld) [Vol rate/Area] 28 mL/min/{1.73_m2} Low >60 [facility] Comment on above: mL/min/1.73m2 CKD-EP I Creatinine Equation (2020) Hematocrit Auto (Bld) [Volum e fraction]Ordered By: Trae Madsen on 11-21-2024 Hematocrit (Bld) [Volume fraction] 27.2 % Low 40-54 [facility] Hematocrit Auto (Bld) [Volum e fraction]Ordered By: Kain Bhakta on 11-21-2024 Hematocrit (Bld) [Volume fraction] 30.0 % Low 40-54 [facility] Hemoglobin measurementOrdere d By: Trae Madsen on 11-21-2024 Hemoglobin (Bld) [Mass/Vol] 8.7 g/dL Low 13.0-16.5 [facility] Hemoglobin measurementOrdere d By: Kain Bhakta on 11-21-2024 Hemoglobin (Bld) [Mass/Vol] 9.8 g/dL Low 13.0-16.5 [facility] Immature granulocytes/100 WB C Auto (Bld)Ordered By: Trae Madsen on 11-21-2024 Immature granulocytes/100 WBC (Bld) 0.500 % 0.0-0.9 [facility] Comment on above: IG% - Immature Granu locytes (promyelocytes, myelocytes and metamyelocytes) > 1% indicates that a LEFT SHIFT is Present. Immature granulocytes/100 WB C Auto (Bld)Ordered By: Kain Bhakta on 11-21-2024 Immature granulocytes/100 WBC (Bld) 0.400 % 0.0-0.9 [facility] Comment on above: IG% - Immature Granu locytes (promyelocytes, myelocytes and metamyelocytes) > 1% indicates that a LEFT SHIFT is Present. International normalized rat io (INR) calculationOrdered By: Trae Madsen on 11-21-2024 INR Coag (Bld) [Relative time] 1.1 {INR} [facility] L499.0042on 11-21-2024 Trop T High Sen Normal <=22 [facility] Comment on above: Result Comment: NO S PECIMEN COLLECTED. PATIENT DEPARTED ED. Performed By: #### L 499.0042 ####[facility] [address] [place], [address] L499.0043on 11-21-2024 Trop T High Sen Normal <=22 [facility] Comment on above: Result Comment: NO S PECIMEN COLLECTED. PATIENT DEPARTED ED. Performed By: #### L 499.0043 ####[facility] [address] [place], [address] L501.4021on 11-21-2024 Trop T High Sen 59 ng/L Invalid Interpretation Code <=22 [facility] Comment on above: Result Comment: Crit ical Result(s) [facility]: 1542 by:NILSON??Results read back by same. Performed By: #### L 100.0100, L501.5200, L503.7505, L500.2500, L501.4021 ####[facility] [address] [place], [address] L503.7505on 11-21-2024 Natriuretic peptide B (Bld) [Mass/Vol] 96 pg/mL Normal <=1800 [facility] Comment on above: Result Comment: Hear t Failure Unlikely: < 300 pg/mLHeart Failure Likely< 50 Years: > 450 pg/mL50-75 Years: > 900 pg/mL>75 Years: > 1800 pg/mL Performed By: #### L 100.0100, L501.5200, L503.7505, L500.2500, L501.4021 ####[facility] [address] [facility] [address] Laboratory - Chemistry and C hemistry - challengeOrdered By: Kain Bhakta on 11-21-2024 AST [Catalytic activity/Vol] 24 U/L <38 [facility] MCV (mean corpuscular volume ) determinationOrdered By: Trae Madsen on 11-21-2024 MCV (RBC) [Entitic vol] 95.8 fL High 80-94 [facility] MCV (mean corpuscular volume ) determinationOrdered By: Kain Bhakta on 11-21-2024 MCV (RBC) [Entitic vol] 95.2 fL High 80-94 [facility] Magnesiumon 11-21-2024 Magnesium [Mass/Vol] 2.2 mg/dL Normal 1.5-2.2 [facility] Comment on above: Performed By: #### L 100.0100, L501.5200, L503.7505, L500.2500, L501.4021 ####[facility] [address] [place], [place], [address] Magnesium measurement (mass/ volume)Ordered By: Trae Madsen on 11-21-2024 Magnesium (Unsp spec) [Mass/Vol] 2.2 mg/dL 1.5-2.2 [facility] Mean corpuscular hemoglobin (MCH) determinationOrdered By: Trae Madsen on 11-21-2024 MCH (RBC) [Entitic mass] 30.6 pg 27.0-32.0 [facility] Mean corpuscular hemoglobin (MCH) determinationOrdered By: Kain Bhakta on 11-21-2024 MCH (RBC) [Entitic mass] 31.1 pg 27.0-32.0 [facility] Mean corpuscular hemoglobin concentration (MCHC) determinationOrdered By: Trae Madsen on 11-21-2024 MCHC (RBC) [Mass/Vol] 32.0 g/dL [facility] Mean corpuscular hemoglobin concentration (MCHC) determinationOrdered By: Kain Bhakta on 11-21-2024 MCHC (RBC) [Mass/Vol] 32.7 g/dL [facility] Mean platelet volume determi nationOrdered By: Trae Madsen on 11-21-2024 Platelet mean volume (Bld) [Entitic vol] 9.6 fL 6.2-12.0 [facility] Mean platelet volume determi nationOrdered By: Kain Bhakta on 11-21-2024 Platelet mean volume (Bld) [Entitic vol] 9.8 fL 6.2-12.0 [facility] Measurement, pHOrdered By: Ap Madsen on 11-21-2024 pH (Unsp spec) 7.39 [pH] 7.35-7.45 [facility] Monocyte percentageOrdered B y: Trae Madsen on 11-21-2024 Monocytes/100 WBC (Bld) 8.7 % 0-10 [facility] Monocyte percentageOrdered B y: Kain Bhakta on 11-21-2024 Monocytes/100 WBC (Bld) 8.5 % 0-10 [facility] Natriuretic peptide.B prohor dago N-Terminal [Mass/volume] in Serum or PlasmaOrdered By: Trae Madsen on 11-21-2024 Natriuretic peptide.B prohormone N-Terminal [Mass/Vol] 96 pg/mL <1800 [facility] Comment on above: Heart Failure Unlike ly: < 300 pg/mLHeart Failure Likely< 50 Years: > 450 pg/mL50-75 Years: > 900 pg/mL>75 Years: > 1800 pg/mL Neutrophil percentageOrdered By: Trae Madsen on 11-21-2024 Neutrophils/100 WBC (Bld) 68.6 % 47-70 [facility] Neutrophil percentageOrdered By: Kain Bhakta on 11-21-2024 Neutrophils/100 WBC (Bld) 67.9 % 47-70 [facility] No Panel InformationOrdered By: Trae Madsen on 11-21-2024 Blood Gas Sample Site L Brach [facility] Blood Gas Specimen Type ART [facility] Blood Gas Vent Mode Not entered [facility] Oxygen Delivery Device Cannula Wo [facility] Nucleated red blood cell per centageOrdered By: Trae Madsen on 11-21-2024 Nucleated RBC/100 WBC (Bld) [Ratio] 0 % 0-5 [facility] Nucleated red blood cell per centageOrdered By: Kain Bhakta on 11-21-2024 Nucleated RBC/100 WBC (Bld) [Ratio] 0 % 0-5 [facility] Partial Thromboplast Timeon 11-21-2024 aPTT Coag (Bld) [Time] 33.9 s Normal 24.1-36.2 [facility] Comment on above: Performed By: #### L 300.3900, L300.4310 ####[facility] [address] [place], [address] Platelet countOrdered By: Arnoldo Madsen on 11-21-2024 Platelets (Bld) [#/Vol] 182 10*3/uL 150-450 [facility] Platelet countOrdered By: Miah Bhakta on 11-21-2024 Platelets (Bld) [#/Vol] 182 10*3/uL 150-450 [facility] Potassium measurement (mass/ volume)Ordered By: Trae Madsen on 11-21-2024 Potassium (Unsp spec) [Mass/Vol] 4.6 mmol/L 3.3-5.1 [facility] Potassium measurement (mass/ volume)Ordered By: Kain Bhakta on 11-21-2024 Potassium (Unsp spec) [Mass/Vol] 4.5 mmol/L 3.3-5.1 [facility] Prothrombin Time w/INRon INR Coag (PPP) [Relative time] 1.1 {INR} Normal [facility] Comment on above: Performed By: #### L 300.3900, L300.4310 ####[facility] [address] [place], [address] PT Coag (PPP) [Time] 14.4 s Normal 11.7-14.9 [facility] Comment on above: Performed By: #### L 300.3900, L300.4310 ####[facility] [address] [place], [address] Prothrombin timeOrdered By: Trae Madsen on 11-21-2024 PT Coag (PPP) [Time] 14.4 s 11.7-14.9 [facility] RBC Auto (Bld) [#/Vol]Ordere d By: Trae Madsen on 11-21-2024 RBC (Bld) [#/Vol] 2.84 10*6/uL Low 4.6-6.2 [facility] RBC Auto (Bld) [#/Vol]Ordere d By: Kain Bhakta on 11-21-2024 RBC (Bld) [#/Vol] 3.15 10*6/uL Low 4.6-6.2 [facility] Serum creatinine measurement (mass/volume)Ordered By: Trae Madsen on 11-21-2024 Creatinine [Mass/Vol] 2.32 mg/dL High 0.70-1.20 [facility] Serum creatinine measurement (mass/volume)Ordered By: Kain Bhakta on 11-21-2024 Creatinine [Mass/Vol] 2.23 mg/dL High 0.70-1.20 [facility] Serum globulin measurementOr dered By: Kain Bhakta on 11-21-2024 Globulin (S) [Mass/Vol] 6.8 g/dL High 2.2-4.2 [facility] Serum glucose measurement (m ass/volume)Ordered By: Trae Madsen on 11-21-2024 Glucose [Mass/Vol] 196 mg/dL High 70-99 [facility] Serum glucose measurement (m ass/volume)Ordered By: Kain Bhakta on 11-21-2024 Glucose [Mass/Vol] 204 mg/dL High 70-99 [facility] Serum or plasma alanine madden otransferase (ALT) measurementOrdered By: Kain Bhakta on 11-21-2024 ALT [Catalytic activity/Vol] 14 U/L <47 [facility] Serum or plasma albumin keven urement (mass/volume)Ordered By: Kain Bhakta on 11-21-2024 Albumin [Mass/Vol] 3.8 g/dL 3.4-4.8 [facility] Comment on above: Previous reported re sult: 0.6 g/dLEdited by: AUTOINS on 11/21/24:1124 AMENDED REPORT 11/21/24 1124 ALB previously reported as: 0.6 L g/dL Serum or plasma albumin/glob ulin mass ratioOrdered By: Kain Bhakta on 11-21-2024 Albumin/Globulin [Mass ratio] 0.1 {ratio} Low 0.9-2.4 [facility] Serum or plasma alkaline bebo sphatase measurementOrdered By: Kain Bhakta on 11-21-2024 ALP [Catalytic activity/Vol] 85 U/L 40-129 [facility] Serum or plasma calcium keven urement (mass/volume)Ordered By: Trae Madsen on 11-21-2024 Calcium [Mass/Vol] 8.2 mg/dL 7.6-11.0 [facility] Serum or plasma calcium keven urement (mass/volume)Ordered By: Kain Bhakta on 11-21-2024 Calcium [Mass/Vol] 8.2 mg/dL 7.6-11.0 [facility] Serum or plasma urea nitroge n measurement (mass/volume)Ordered By: Trae Madsen on 11-21-2024 Urea nitrogen [Mass/Vol] 46 mg/dL High - [facility] Comment on above: CALLED TO [facility] AT 1542 ON 11/21/24 BY NILSON. RESULTS READ BACK BY SAME. Serum or plasma urea nitroge n measurement (mass/volume)Ordered By: Kain Bhakta on 11-21-2024 Urea nitrogen [Mass/Vol] 4 mg/dL - [facility] Sodium levelOrdered By: Maru Madsen on 11-21-2024 Sodium [Moles/Vol] 140 mmol/L 133-145 [facility] Sodium levelOrdered By: Kain Bhakta on 11-21-2024 Sodium [Moles/Vol] 138 mmol/L 133-145 [facility] Stool Occult Blood iFOBon STOB Positive Normal [facility] Comment on above: Performed By: #### M 100.1755 ####[facility] [address] [place], [place], [id number] Stool gastrointestinal hemog lobin detection by immunologic methodOrdered By: Trae Madsen on 11-21-2024 Lower GI hemoglobin IA Ql (Stl) Positive Abnormal [facility] TSH DL <= 0.005 mIU/L QnOrde red By: Kain Bhakta on 11-21-2024 TSH Qn 3.110 uIU/mL 0.300-4.200 [facility] Thyroid Stim Hormone (TSH)on 11-21-2024 TSH 3.110 uIU/mL Normal 0.300-4.200 [facility] Comment on above: Performed By: #### L 506.1001, L100.0100, L501.9520, L500.4050 ####[facility] [address] [place], [address] Total carbon dioxide measure mentOrdered By: Trae Madsen on 11-21-2024 CO2 [Moles/Vol] 39 mmol/L [facility] Total proteinOrdered By: Kain Bhakta on 11-21-2024 Protein [Mass/Vol] 7.4 g/dL 5.9-8.4 [facility] Troponin T.cardiac [Mass/vol ume] in Serum or Plasma by High sensitivity methodOrdered By: Trae Madsen on 11-21-2024 Troponin T.cardiac High sensitivity method [Mass/Vol] 59 ng/L High <22 [facility] Comment on above: Critical Result(s) Tosin MCMAHON at: 1542 by: NILSON Results read back by same. Vitamin D,25 Hydroxyon 11-21 Vitamin D 25-OH 40.2 ng/mL Normal 30-100 [facility] Comment on above: Result Comment: Toma min D StatusDeficiency: <20 ng/mL (50nmol/L)Insufficiency: 20-30 ng/mL (50-75 nmol/L)Sufficiency: 30-100 ng/mL (75-250 nmol/L)Toxicity: >100 ng/mL (>250 nmol/L) Performed By: #### L 506.1001, L100.0100, L501.9520, L500.4050 ####[facility] [address] [place], [address] White blood cell (WBC) count Ordered By: Trae Madsen on 11-21-2024 WBC (Bld) [#/Vol] 6.7 10*3/uL 4.4-11.0 [facility] White blood cell (WBC) count Ordered By: Kain Bhakta on 11-21-2024 WBC (Bld) [#/Vol] 5.4 10*3/uL 4.4-11.0 [facility] Brain/Head without Contrasto n 11-10-2024 Brain/Head without Contrast Normal [facility] Emergency Department Summary on 11-10-2024 Emergency Department Summary Normal [facility] Hips B/L min 2 views w/ Pelv crow 11-10-2024 Hips B/L min 2 views w/ Pelvis Normal [facility] Sinus/Facial Boneon 11-11-19 Sinus/Facial Bone Normal [facility] Spine Cervical without Contr ason 11-10-2024 Spine Cervical without Contras Normal [facility] Carotid Duplex Ultrasoundon 09-29-2024 Carotid Duplex Ultrasound Normal [facility] Duplex ultrasound of carotid artery reportOrdered By: Kalen Cr on 09-29-2024 Study report [facility] [address] [place] [address] Carotid Duplex Ultrasound 09/29/24 1017 MR#: [id number] Acct: [id number] Name: JUNIOR BOONE Rep #:[id number] : 1940 84 From: Kalen De Anda Attending Dr: RACHEL Ibarra Status: REG CLI Ordering Dr: Daisha Nelson PA Date: 09/29/24 Location: [facility] Sex: M C Admitted: Reason For Study Reason For Study: Rt Carotid Bruit Rt. Velocities/BP Lt. Velocities/BP Prox CCA 133.7/27.5 cm/sec. Prox CCA 107.6/25.4 cm/sec. Mid CCA 104.7/24.9 cm/sec. Mid CCA 80.2/23.6 cm/sec. Dist CCA 98.6/22.5 cm/sec. Dist CCA 90.6/26.7 cm/sec. Prox ICA 62.1/16.7 cm/sec. Prox ICA 107.8/35.2 cm/sec. Mid ICA 99.5/29.7 cm/sec. Mid ICA 118.0/43.6 cm/sec. Dist ICA 100.3/29.1 cm/sec. Dist ICA 133.7/40.4 cm/sec. Rt. ICA/CCA = 1.0. Lt. ICA/CCA = 1.7. Prox ECA 175.2/14.5 cm/sec. Prox ECA 190.8/9.3 cm/sec. Rt. Vert. 77.8/21.2 cm/sec. Lt. Vert. 66.0/16.9 cm/sec. Right Extracranial There is heterogeneous, irregular atherosclerotic plaque noted in the right common carotid artery. There is heterogeneous, irregular atherosclerotic plaque noted in the right internal carotid artery. There is heterogeneous, irregular atherosclerotic plaque noted in the right external carotid artery. Antegrade flow is noted in the right vertebral artery. Left Extracranial There is heterogeneous, irregular atherosclerotic plaque noted in the left common carotid artery. There is heterogeneous, irregular atherosclerotic plaque noted in the left internal carotid artery. The atherosclerotic plaque causes acoustic shadowing. There is heterogeneous, irregular atherosclerotic plaque noted in the left external carotid artery. Antegrade flow is noted in the left vertebral artery. Procedure Carotid Duplex 17982. This is a Carotid Duplex examination using B-mode, color flow and specral Doppler. The exam was diagnostic. Exam performed in department. VL/Carotid Duplex Ultrasound Interpretation Summary Mild (<50%) stenosis right extracranial internal carotid. Moderate (50-69%) stenosis left extracranial internal carotid. Patent and antegrade vertebrals bilaterally. Ordering Physician: Daisha Nelson Referring Physician: Kain Bhakta Chi Performed By: Sang Stone, T 09/29/24 2936 Date _ Kalen Cr MD CC: Dr. Daisha North MD; Dr. 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: Signed [facility] Work Phone: 12 Lead EKG performed by [facility] on 09-13-2024 12 Lead EKG performed by [facility] Normal [facility] Cardiology Visit Reporton Cardiology Visit Report Normal [facility] Blood urea nitrogen (BUN)/cr eatinine ratioOrdered By: Keshia Cottrell on 07-05-2024 Urea nitrogen/Creatinine [Mass ratio] 19.5 mg/mg 10-20 [facility] Carbon dioxide measurementOr dered By: Keshia Cottrell on 07-05-2024 CO2 [Moles/Vol] 31.0 mmol/L 21.0-32.0 [facility] Chloride measurementOrdered By: Keshia Cottrell on 07-05-2024 Chloride [Moles/Vol] 100 mmol/L 98-107 [facility] Glomerular filtration rate ( GFR) estimationOrdered By: Keshia Cottrell on 07-05-2024 GFR/1.73 sq M.predicted among non-blacks MDRD (S/P/Bld) [Vol rate/Area] 33 mL/min/{1.73_m2} Low >60 [facility] Comment on above: Non- GFR Calc Glucose measurementOrdered B y: Keshia Cottrell on 07-05-2024 Glucose [Mass/Vol] 361 mg/dL High 74-106 [facility] Comment on above: Glucose result great er than or equal to 200 mg/dLsuggests DIABETES MELLITUS per A.D.A. criteria. Potassium measurementOrdered By: Keshia Cottrell on 07-05-2024 Potassium [Moles/Vol] 3.8 mmol/L 3.5-5.1 [facility] Renal Profileon 07-05-2024 Albumin [Mass/Vol] 3.4 g/dL Normal 3.2-5.0 [facility] Comment on above: Performed By: #### L 500.3604 ####[facility] [address] [place], [address] BUN/CRE 19.5 RATIO Normal 10-20 [facility] Comment on above: Performed By: #### L 500.3600 ####[facility] [address] [place], [address] CA,Total 9.3 mg/dL Normal 8.5-10.1 [facility] Comment on above: Performed By: #### L 500.3600 ####[facility] [address] [place], [address] Chloride [Moles/Vol] 100 mmol/L Normal 98-107 [facility] Comment on above: Performed By: #### L 500.3600 ####[facility] [address] [place], [address] CO2 [Moles/Vol] 31.0 mmol/L Normal 21.0-32.0 [facility] Comment on above: Performed By: #### L 500.3600 ####[facility] [address] [place], [address] Creatinine [Mass/Vol] 2.05 mg/dL High 0.70-1.30 [facility] Comment on above: Result Comment: The validity of the calculated GFR GFRAA in patients over70 years has not been determined. Clinical correlation isessential. Performed By: #### L 500.3600 ####[facility] [address] [place], [address] EST GFR - AA 40 mL/min Low >60 [facility] Comment on above: Result Comment: Afri can Senegalese GFR Calc Performed By: #### L 500.3600 ####[facility] [address] [place], [address] GFR/1.73 sq M.predicted among non-blacks MDRD (S/P/Bld) [Vol rate/Area] 33 mL/min/{1.73_m2} Low >60 [facility] Comment on above: Result Comment: Non- GFR Calc Performed By: #### L 500.3600 ####[facility] [address] [place], [address] Glucose [Mass/Vol] 361 mg/dL High 74-106 [facility] Comment on above: Result Comment: Gluc ose result greater than or equal to 200 mg/dLsuggests DIABETES MELLITUS per A.D.A. criteria. Performed By: #### L 500.3600 ####[facility] [address] [place], [address] Phosphate [Mass/Vol] 2.8 mg/dL Normal 2.5-4.9 [facility] Comment on above: Performed By: #### L 500.3600 ####[facility] [address] [place], [address] Potassium [Moles/Vol] 3.8 mmol/L Normal 3.5-5.1 [facility] Comment on above: Performed By: #### L 500.3600 ####[facility] [address] [place], [address] Sodium [Moles/Vol] 137 mmol/L Normal 136-145 [facility] Comment on above: Performed By: #### L 500.3600 ####[facility] [address] [place], [address] Urea nitrogen [Mass/Vol] 40 mg/dL High 7-18 [facility] Comment on above: Performed By: #### L 500.3600 ####[facility] [address] [place], [address] Serum or plasma albumin keven urement (mass/volume)Ordered By: Keshia Cottrell on 07-05-2024 Albumin [Mass/Vol] 3.4 g/dL 3.2-5.0 [facility] Serum or plasma calcium keven urement (mass/volume)Ordered By: Keshia Cottrell on 07-05-2024 Calcium [Mass/Vol] 9.3 mg/dL 8.5-10.1 [facility] Serum or plasma creatinine m easurement (mass/volume)Ordered By: Keshia Cottrell on 07-05-2024 Creatinine [Mass/Vol] 2.05 mg/dL High 0.70-1.30 [facility] Comment on above: The validity of the calculated GFR & GFRAA in patients over 70 years has not been determined. Clinical correlation is essential. Serum or plasma urea nitroge n measurement (mass/volume)Ordered By: Keshia Cottrell on 07-05-2024 Urea nitrogen [Mass/Vol] 40 mg/dL High 12-02 [facility] Sodium levelOrdered By: Mayte Cottrell on 07-05-2024 Sodium [Moles/Vol] 137 mmol/L 136-145 [facility] Vitamin D,25 Hydroxyon 05-05 Vitamin D 25-OH 40.0 ng/mL Normal [facility] Comment on above: Result Comment: Toma min D 25(OH) Status Range Deficiency <20 ng/mL (50nmol/L) Insufficiency 20 - 30 ng/mL (50 - 75 nmol/L) Sufficiency 30 - 100 ng/mL (75 - 250 nmol/L) Toxicity >100 ng/mL (>250 nmol/L) Performed By: #### L 100.0100, L506.1000, L500.4050, L501.9520 ####[facility] [address] [place], [address] CBC W/Diff, Automatedon 04-17 Absolute Lymph 1.58 X10 3/uL Normal 0.83-4.51 [facility] Comment on above: Performed By: #### L 100.0100, L506.1000, L500.4050, L501.9520 ####[facility] [address] [place], [address] Absolute Neut 5.5 X10 3/uL Normal 2.0-7.7 [facility] Comment on above: Performed By: #### L 100.0100, L506.1000, L500.4050, L501.9520 ####[facility] [address] [place], [address] Basophils/100 WBC (Bld) 0.5 % Normal 0-1 [facility] Comment on above: Performed By: #### L 100.0100, L506.1000, L500.4050, L501.9520 ####[facility] [address] [place], [address] Eosinophils/100 WBC (Bld) 1.9 % Normal 0-5 [facility] Comment on above: Performed By: #### L 100.0100, L506.1000, L500.4050, L501.9520 ####[facility] [address] [place], [address] Erythrocyte distribution width (RBC) [Ratio] 12.7 % Normal 11.6-14.6 [facility] Comment on above: Performed By: #### L 100.0100, L506.1000, L500.4050, L501.9520 ####[facility] [address] [place], [address] Hematocrit (Bld) [Volume fraction] 32.8 % Low 40-54 [facility] Comment on above: Performed By: #### L 100.0100, L506.1000, L500.4050, L501.9520 ####[facility] [address] [place], [address] Hemoglobin (Bld) [Mass/Vol] 10.8 g/dL Low 13.0-16.5 [facility] Comment on above: Performed By: #### L 100.0100, L506.1000, L500.4050, L501.9520 ####[facility] [address] [place], [address] IG% 0.500 Normal 0.0-0.9 [facility] Comment on above: Result Comment: IG% - Immature Granulocytes (promyelocytes, myelocytes andmetamyelocytes) > 1% indicates that a LEFT SHIFT is Present. Performed By: #### L 100.0100, L506.1000, L500.4050, L501.9520 ####[facility] [address] [place], [address] Lymphocytes/100 WBC (Bld) 20.2 % Normal 19-41 [facility] Comment on above: Performed By: #### L 100.0100, L506.1000, L500.4050, [id number] ####[facility] [address] [place], [address] MCH (RBC) [Entitic mass] 30.0 pg Normal 27.0-32.0 [facility] Comment on above: Performed By: #### L 100.0100, L506.1000, L500.4050, [id number] ####[facility] [address] [place], [address] MCHC (RBC) [Mass/Vol] 32.9 g/dL Normal 32-36 [facility] Comment on above: Performed By: #### L 100.0100, L506.1000, L500.4050, L501.9520 ####[facility] [address] [place], [address] MCV (RBC) [Entitic vol] 91.1 fL Normal 80-94 [facility] Comment on above: Performed By: #### L 100.0100, L506.1000, L500.4050, [id number] ####[facility] [address] [place], [address] Monocytes/100 WBC (Bld) 6.4 % Normal 0-10 [facility] Comment on above: Performed By: #### L 100.0100, L506.1000, L500.4050, [id number] ####[facility] [address] [place], [address] Neutrophils/100 WBC (Bld) 70.5 % High 47-70 [facility] Comment on above: Performed By: #### L 100.0100, L506.1000, L500.4050, [id number] ####[facility] [address] [place], [address] Nucleated RBC (Bld) [#/Vol] 0 10*3/uL Normal 0-5 [facility] Comment on above: Performed By: #### L 100.0100, L506.1000, L500.4050, L501.9520 ####[facility] [address] [place], [address] Platelet mean volume (Bld) [Entitic vol] 10.3 fL Normal 6.2-12.0 [facility] Comment on above: Performed By: #### L 100.0100, L506.1000, L500.4050, L501.9520 ####[facility] [address] [place], [address] Platelets (Bld) [#/Vol] 144 10*3/uL Low 150-450 [facility] Comment on above: Performed By: #### L 100.0100, L506.1000, L500.4050, L501.9520 ####[facility] [address] [place], [address] RBC (Bld) [#/Vol] 3.60 10*6/uL Low 4.6-6.2 [facility] Comment on above: Performed By: #### L 100.0100, L506.1000, L500.4050, L501.9520 ####[facility] [address] [place], [address] RDW SD 42.2 fl Normal 35.1-43.9 [facility] Comment on above: Performed By: #### L 100.0100, L506.1000, L500.4050, [id number] ####[facility] [address] [place], [address] WBC (Bld) [#/Vol] 7.8 10*3/uL Normal 4.4-11.0 [facility] Comment on above: Performed By: #### L 100.0100, L506.1000, L500.4050, L501.9520 ####[facility] [address] [place], [address] [facility] Albumin [Mass/Vol] 3.4 g/dL Normal 3.2-5.0 [facility] Comment on above: Performed By: #### L 100.0100, L506.1000, L500.4050, [id number] ####[facility] [address] [place], [address] Albumin/Globulin [Mass ratio] 0.8 {ratio} Low 0.9-2.4 [facility] Comment on above: Performed By: #### L 100.0100, L506.1000, L500.4050, [id number] ####[facility] [address] [place], [address] ALK P 97 U/L Normal 45-117 [facility] Comment on above: Performed By: #### L 100.0100, L506.1000, L500.4050, [id number] ####[facility] [address] [place], [address] ALT [Catalytic activity/Vol] 16 U/L Normal 16-61 [facility] Comment on above: Performed By: #### L 100.0100, L506.1000, L500.4050, [id number] ####[facility] [address] [place], [address] AST [Catalytic activity/Vol] 16 U/L Normal 15-37 [facility] Comment on above: Performed By: #### L 100.0100, L506.1000, L500.4050, L501.9520 ####[facility] [address] [place], [address] Bilirubin [Mass/Vol] 0.40 mg/dL Normal 0.20-1.00 [facility] Comment on above: Result Comment: For patients on eltrombopag therapy, use of Dimension Taylor TBIL is not recommended. Performed By: #### L 100.0100, L506.1000, L500.4050, L501.9520 ####[facility] [address] [place], [address] BUN/CRE 18.8 RATIO Normal 10-20 [facility] Comment on above: Performed By: #### L 100.0100, L506.1000, L500.4050, [id number] ####[facility] [address] [place], [address] CA,Total 8.7 mg/dL Normal 8.5-10.1 [facility] Comment on above: Performed By: #### L 100.0100, L506.1000, L500.4050, [id number] ####[facility] [address] [place], [address] Chloride [Moles/Vol] 102 mmol/L Normal 98-107 [facility] Comment on above: Performed By: #### L 100.0100, L506.1000, L500.4050, L501.9520 ####[facility] [address] [place], [address] CO2 [Moles/Vol] 30.0 mmol/L Normal 21.0-32.0 [facility] Comment on above: Performed By: #### L 100.0100, L506.1000, L500.4050, [id number] ####[facility] [address] [place], [address] Creatinine [Mass/Vol] 1.92 mg/dL High 0.70-1.30 [facility] Comment on above: Result Comment: The validity of the calculated GFR GFRAA in patients over70 years has not been determined. Clinical correlation isessential. Performed By: #### L 100.0100, L506.1000, L500.4050, L501.9520 ####[facility] [address] [place], [address] EST GFR - AA 43 mL/min Low >60 [facility] Comment on above: Result Comment: Afri can [place]eg[place] GFR Calc Performed By: #### L 100.0100, L506.1000, L500.4050, L501.9520 ####[facility] [address] [place], [address] GAP 4 Low 5-15 [facility] Comment on above: Performed By: #### L 100.0100, L506.1000, L500.4050, L501.9520 ####[facility] [address] [place], [address] GFR/1.73 sq M.predicted among non-blacks MDRD (S/P/Bld) [Vol rate/Area] 36 mL/min/{1.73_m2} Low >60 [facility] Comment on above: Result Comment: Non- GFR Calc Performed By: #### L 100.0100, L506.1000, L500.4050, L501.9520 ####[facility] [address] [place], [address] Globulin (S) [Mass/Vol] 4.0 g/dL Normal 2.2-4.2 [facility] Comment on above: Performed By: #### L 100.0100, L506.1000, L500.4050, L501.9520 ####[facility] [address] [place], [address] Glucose [Mass/Vol] 322 mg/dL High 74-106 [facility] Comment on above: Result Comment: Gluc ose result greater than or equal to 200 mg/dLsuggests DIABETES MELLITUS per A.D.A. criteria. Performed By: #### L 100.0100, L506.1000, L500.4050, L501.9520 ####[facility] [address] [place], [address] Potassium [Moles/Vol] 4.2 mmol/L Normal 3.5-5.1 [facility] Comment on above: Performed By: #### L 100.0100, L506.1000, L500.4050, [id number] ####[facility] [address] [place], [address] Sodium [Moles/Vol] 136 mmol/L Normal 136-145 [facility] Comment on above: Performed By: #### L 100.0100, L506.1000, L500.4050, [id number] ####[facility] [address] [place], [address] T PROT 7.4 g/dL Normal 6.4-8.2 [facility] Comment on above: Performed By: #### L 100.0100, L506.1000, L500.4050, [id number] ####[facility] [address] [place], [address] Urea nitrogen [Mass/Vol] 36 mg/dL High -18 [facility] Comment on above: Performed By: #### L 100.0100, L506.1000, L500.4050, [id number] ####[facility] [address] [place], [address] Thyroid Stim Hormone (TSH)on 05-04-2024 TSH 1.770 uIU/mL Normal 0.358-3.740 [facility] Comment on above: Performed By: #### L 100.0100, L506.1000, L500.4050, [id number] ####[facility] [address] [place], [address] Basic Metabolic Profile (BMP )on 04-28-2024 BUN Normal 7-18 [facility] Comment on above: Result Comment: Canc elled via OM: Order cancelled - Patient discharged Performed By: #### L 500.2500, L100.0100 ####[facility] [address] [place], [address] BUN/CRE Normal 10-20 [facility] Comment on above: Result Comment: Canc elled via OM: Order cancelled - Patient discharged Performed By: #### L 500.2500, L100.0100 ####[facility] [address] [place], [address] CA,Total Normal 8.5-10.1 [facility] Comment on above: Result Comment: Canc elled via OM: Order cancelled - Patient discharged Performed By: #### L 500.2500, L100.0100 ####[facility] [address] [place], [address] CL Normal 98-107 [facility] Comment on above: Result Comment: Canc elled via OM: Order cancelled - Patient discharged Performed By: #### L 500.2500, L100.0100 ####[facility] [address] [place], [address] CO2 Normal 21.0-32.0 [facility] Comment on above: Result Comment: Canc elled via OM: Order cancelled - Patient discharged Performed By: #### L 500.2500, L100.0100 ####[facility] [address] [place], [address] CREAT,SERUM Normal 0.70-1.30 [facility] Comment on above: Result Comment: Canc elled via OM: Order cancelled - Patient discharged Performed By: #### L 500.2500, L100.0100 ####[facility] [address] [place], [address] EST GFR Normal >60 [facility] Comment on above: Result Comment: Canc elled via OM: Order cancelled - Patient discharged Performed By: #### L 500.2500, L100.0100 ####[facility] [address] [place], [address] EST GFR - AA Normal >60 [facility] Comment on above: Result Comment: Canc elled via OM: Order cancelled - Patient discharged Performed By: #### L 500.2500, L100.0100 ####[facility] [address] [place], [address] GAP Normal 5-15 [facility] Comment on above: Result Comment: Canc elled via OM: Order cancelled - Patient discharged Performed By: #### L 500.2500, L100.0100 ####[facility] [address] [place], [address] GLU Normal 74-106 [facility] Comment on above: Result Comment: Canc elled via OM: Order cancelled - Patient discharged Performed By: #### L 500.2500, L100.0100 ####[facility] [address] [place], [address] Potassium Normal 3.5-5.1 [facility] Comment on above: Result Comment: Canc elled via OM: Order cancelled - Patient discharged Performed By: #### L 500.2500, L100.0100 ####[facility] [address] [place], [address] Basic Metabolic Profile (BMP) Normal 136-145 [facility] Comment on above: Result Comment: Canc elled via OM: Order cancelled - Patient discharged Performed By: #### L 500.2500, L100.0100 ####[facility] [address] [place], [address] CBC W/Diff, Automatedon 12-1 Absolute Neut Normal 2.0-7.7 [facility] Comment on above: Result Comment: Canc elled via OM: Order cancelled - Patient discharged Performed By: #### L 500.2500, L100.0100 ####[facility] [address] [place], [address] HCT Normal 40-54 [facility] Comment on above: Result Comment: Canc elled via OM: Order cancelled - Patient discharged Performed By: #### L 500.2500, L100.0100 ####[facility] [address] [place], [address] HGB Normal 13.0-16.5 [facility] Comment on above: Result Comment: Canc elled via OM: Order cancelled - Patient discharged Performed By: #### L 500.2500, L100.0100 ####[facility] [address] [place], [address] MCH Normal 27.0-32.0 [facility] Comment on above: Result Comment: Canc elled via OM: Order cancelled - Patient discharged Performed By: #### L 500.2500, L100.0100 ####[facility] [address] [place], [address] MCHC Normal 32-36 [facility] Comment on above: Result Comment: Canc elled via OM: Order cancelled - Patient discharged Performed By: #### L 500.2500, L100.0100 ####[facility] [address] [place], [address] MCV Normal 80-94 [facility] Comment on above: Result Comment: Canc elled via OM: Order cancelled - Patient discharged Performed By: #### L 500.2500, L100.0100 ####[facility] [address] [place], [address] NEUT% Normal 47-70 [facility] Comment on above: Result Comment: Canc elled via OM: Order cancelled - Patient discharged Performed By: #### L 500.2500, L100.0100 ####[facility] [address] [place], [address] PLT Normal 150-450 [facility] Comment on above: Result Comment: Canc elled via OM: Order cancelled - Patient discharged Performed By: #### L 500.2500, L100.0100 ####[facility] [address] [place], [address] RBC Normal 4.6-6.2 [facility] Comment on above: Result Comment: Canc elled via OM: Order cancelled - Patient discharged Performed By: #### L 500.2500, L100.0100 ####[facility] [address] [place], [address] RDW CV Normal 11.6-14.6 [facility] Comment on above: Result Comment: Canc elled via OM: Order cancelled - Patient discharged Performed By: #### L 500.2500, L100.0100 ####[facility] [address] [place], [address] RDW SD Normal 35.1-43.9 [facility] Comment on above: Result Comment: Canc elled via OM: Order cancelled - Patient discharged Performed By: #### L 500.2500, L100.0100 ####[facility] [address] [place], [address] WBC Normal 4.4-11.0 [facility] Comment on above: Result Comment: Canc elled via OM: Order cancelled - Patient discharged Performed By: #### L 500.2500, L100.0100 ####[facility] [address] [place], [address] Urine Cultureon 04-24-2024 URC Mixed Gram Pos Gram Neg Org [place] Count 50,000-80,000 MIXC Mixed contaminants. Submit a new specimen if indicated. Normal [facility] Comment on above: Performed By: #### L 400.0001, M100.2200 ####[facility] [address] [place], [address] Basic Metabolic Profile (BMP )on 04-21-2024 BUN Normal 7-18 [facility] Comment on above: Result Comment: Canc elled via OM: Order cancelled - Patient discharged Performed By: #### L 500.2500, L100.0100 ####[facility] [address] [place], [address] BUN/CRE Normal 10-20 [facility] Comment on above: Result Comment: Canc elled via OM: Order cancelled - Patient discharged Performed By: #### L 500.2500, L100.0100 ####[facility] [address] [place], [address] CA,Total Normal 8.5-10.1 [facility] Comment on above: Result Comment: Canc elled via OM: Order cancelled - Patient discharged Performed By: #### L 500.2500, L100.0100 ####[facility] [address] [place], [address] CL Normal 98-107 [facility] Comment on above: Result Comment: Canc elled via OM: Order cancelled - Patient discharged Performed By: #### L 500.2500, L100.0100 ####[facility] [address] [place], [address] CO2 Normal 21.0-32.0 [facility] Comment on above: Result Comment: Canc elled via OM: Order cancelled - Patient discharged Performed By: #### L 500.2500, L100.0100 ####[facility] [address] [place], [address] CREAT,SERUM Normal 0.70-1.30 [facility] Comment on above: Result Comment: Canc elled via OM: Order cancelled - Patient discharged Performed By: #### L 500.2500, L100.0100 ####[facility] [address] [place], [address] EST GFR Normal >60 [facility] Comment on above: Result Comment: Canc elled via OM: Order cancelled - Patient discharged Performed By: #### L 500.2500, L100.0100 ####[facility] [address] [place], [address] EST GFR - AA Normal >60 [facility] Comment on above: Result Comment: Canc elled via OM: Order cancelled - Patient discharged Performed By: #### L 500.2500, L100.0100 ####[facility] [address] [place], [address] GAP Normal 5-15 [facility] Comment on above: Result Comment: Canc elled via OM: Order cancelled - Patient discharged Performed By: #### L 500.2500, L100.0100 ####[facility] [address] [place], [address] GLU Normal 74-106 [facility] Comment on above: Result Comment: Canc elled via OM: Order cancelled - Patient discharged Performed By: #### L 500.2500, L100.0100 ####[facility] [address] [place], [address] Potassium Normal 3.5-5.1 [facility] Comment on above: Result Comment: Canc elled via OM: Order cancelled - Patient discharged Performed By: #### L 500.2500, L100.0100 ####[facility] [address] [place], [address] Basic Metabolic Profile (BMP) Normal 136-145 [facility] Comment on above: Result Comment: Canc elled via OM: Order cancelled - Patient discharged Performed By: #### L 500.2500, L100.0100 ####[facility] [address] [place], [address] CBC W/Diff, Automatedon 12-0 -2023 Absolute Neut Normal 2.0-7.7 [facility] Comment on above: Result Comment: Canc elled via OM: Order cancelled - Patient discharged Performed By: #### L 500.2500, L100.0100 ####[facility] [address] [place], [address] HCT Normal 40-54 [facility] Comment on above: Result Comment: Canc elled via OM: Order cancelled - Patient discharged Performed By: #### L 500.2500, L100.0100 ####[facility] [address] [place], [address] HGB Normal 13.0-16.5 [facility] Comment on above: Result Comment: Canc elled via OM: Order cancelled - Patient discharged Performed By: #### L 500.2500, L100.0100 ####[facility] [address] [place], [address] MCH Normal 27.0-32.0 [facility] Comment on above: Result Comment: Canc elled via OM: Order cancelled - Patient discharged Performed By: #### L 500.2500, L100.0100 ####[facility] [address] [place], [address] MCHC Normal 32-36 [facility] Comment on above: Result Comment: Canc elled via OM: Order cancelled - Patient discharged Performed By: #### L 500.2500, L100.0100 ####[facility] [address] [place], [address] MCV Normal 80-94 [facility] Comment on above: Result Comment: Canc elled via OM: Order cancelled - Patient discharged Performed By: #### L 500.2500, L100.0100 ####[facility] [address] [place], [address] NEUT% Normal 47-70 [facility] Comment on above: Result Comment: Canc elled via OM: Order cancelled - Patient discharged Performed By: #### L 500.2500, L100.0100 ####[facility] [address] [place], [address] PLT Normal 150-450 [facility] Comment on above: Result Comment: Canc elled via OM: Order cancelled - Patient discharged Performed By: #### L 500.2500, L100.0100 ####[facility] [address] [place], [address] RBC Normal 4.6-6.2 [facility] Comment on above: Result Comment: Canc elled via OM: Order cancelled - Patient discharged Performed By: #### L 500.2500, L100.0100 ####[facility] [address] [place], [address] RDW CV Normal 11.6-14.6 [facility] Comment on above: Result Comment: Canc elled via OM: Order cancelled - Patient discharged Performed By: #### L 500.2500, L100.0100 ####[facility] [address] [place], [address] RDW SD Normal 35.1-43.9 [facility] Comment on above: Result Comment: Canc elled via OM: Order cancelled - Patient discharged Performed By: #### L 500.2500, L100.0100 ####[facility] [address] [place], [address] WBC Normal 4.4-11.0 [facility] Comment on above: Result Comment: Canc elled via OM: Order cancelled - Patient discharged Performed By: #### L 500.2500, L100.0100 ####[facility] [address] [place], [address] Urinalysis, Completeon 04-21 BACTERIA RARE Normal None Seen [facility] Comment on above: Order Comment: Urine , Random Performed By: #### L 400.0001, M1.0 ####[facility] [address] [place], [address] EPI,SQUAMOUS 0-5 SEEN Normal 0-5 [facility] Comment on above: Order Comment: Urine , Random Performed By: #### L 400.0001, M1.2199 ####[facility] [address] [place], [address] WBC 0-5 SEEN Normal 0-5 [facility] Comment on above: Order Comment: Urine , Random Performed By: #### L 400.0001, .2199 ####[facility] [address] [place], [address] BILIRUBIN URINE Negative Normal Negative [facility] Comment on above: Order Comment: Urine , Random Performed By: #### L 400.0001, ####[facility] [address] [place], [address] Clarity (U) Clear Normal Clear [facility] Comment on above: Order Comment: Urine , Random Performed By: #### L 400.0001, .2199 ####[facility] [address] [place], [address] Color (U) Straw Normal Yellow [facility] Comment on above: Order Comment: Urine , Random Performed By: #### L 400.0001, .2199 ####[facility] [address] [place], [address] GLUCOSE, UR Normal Normal Normal [facility] Comment on above: Order Comment: Urine , Random Performed By: #### L 400.0001, M1.2199 ####[facility] [address] [place], [address] KETONE UR Negative Normal Negative [facility] Comment on above: Order Comment: Urine , Random Performed By: #### L 400.0001, ####[facility] [address] [place], [address] LEUK ESTERASE Negative Normal Negative [facility] Comment on above: Order Comment: Urine , Random Performed By: #### L 400.0001, ####[facility] [address] [place], [address] Nitrite Ql (U) Negative Normal Negative [facility] Comment on above: Order Comment: Urine , Random Performed By: #### L 400.0001, ####[facility] [address] [place], [address] OCCULT BLOOD-UR Negative Normal Negative [facility] Comment on above: Order Comment: Urine , Random Performed By: #### L 400.0001, ####[facility] [address] [place], [address] pH UR 7.0 Normal 5.0 - 8.0 [facility] Comment on above: Order Comment: Urine , Random Performed By: #### L 400.0001, ####[facility] [address] [place], [address] PROT DIPSTX Negative Normal Negative [facility] Comment on above: Order Comment: Urine , Random Performed By: #### L 400.0001, ####[facility] [address] [place], [address] SP.GR. DIPSTX 1.010 Normal 1.002-1.030 [facility] Comment on above: Order Comment: Urine , Random Performed By: #### L 400.0001, ####[facility] [address] [place], [address] UROBILI Normal Normal Normal [facility] Comment on above: Order Comment: Urine , Random Performed By: #### L 400.0001, .2199 ####[facility] [address] [place], [address] Mucus Ql (Urine sed) 0 SEEN Normal [facility] Comment on above: Order Comment: Urine , Random Performed By: #### L 400.0001, ####[facility] [address] [place], [address] RBC 0 SEEN Normal 0-5 [facility] Comment on above: Order Comment: Urine , Random Performed By: #### L 400.0001, .2199 ####[facility] [address] [place], [address] Basic Metabolic Profile (BMP )on 04-14-2024 BUN Normal 7-18 [facility] Comment on above: Result Comment: Canc elled via OM: Order cancelled - Patient discharged Performed By: #### L 500.2500, L100.0100 ####[facility] [address] [place], [address] BUN/CRE Normal 10-20 [facility] Comment on above: Result Comment: Canc elled via OM: Order cancelled - Patient discharged Performed By: #### L 500.2500, L100.0100 ####[facility] [address] [place], [address] CA,Total Normal 8.5-10.1 [facility] Comment on above: Result Comment: Canc elled via OM: Order cancelled - Patient discharged Performed By: #### L 500.2500, L100.0100 ####[facility] [address] [place], [address] CL Normal 98-107 [facility] Comment on above: Result Comment: Canc elled via OM: Order cancelled - Patient discharged Performed By: #### L 500.2500, L100.0100 ####[facility] [address] [place], [address] CO2 Normal 21.0-32.0 [facility] Comment on above: Result Comment: Canc elled via OM: Order cancelled - Patient discharged Performed By: #### L 500.2500, L100.0100 ####[facility] [address] [place], [address] CREAT,SERUM Normal 0.70-1.30 [facility] Comment on above: Result Comment: Canc elled via OM: Order cancelled - Patient discharged Performed By: #### L 500.2500, L100.0100 ####[facility] [address] [place], [address] EST GFR Normal >60 [facility] Comment on above: Result Comment: Canc elled via OM: Order cancelled - Patient discharged Performed By: #### L 500.2500, L100.0100 ####[facility] [address] [place], [address] EST GFR - AA Normal >60 [facility] Comment on above: Result Comment: Canc elled via OM: Order cancelled - Patient discharged Performed By: #### L 500.2500, L100.0100 ####[facility] [address] [place], [address] GAP Normal 5-15 [facility] Comment on above: Result Comment: Canc elled via OM: Order cancelled - Patient discharged Performed By: #### L 500.2500, L100.0100 ####[facility] [address] [place], [address] GLU Normal 74-106 [facility] Comment on above: Result Comment: Canc elled via OM: Order cancelled - Patient discharged Performed By: #### L 500.2500, L100.0100 ####[facility] [address] [place], [address] Potassium Normal 3.5-5.1 [facility] Comment on above: Result Comment: Canc elled via OM: Order cancelled - Patient discharged Performed By: #### L 500.2500, L100.0100 ####[facility] [address] [place], [address] Basic Metabolic Profile (BMP) Normal 136-145 [facility] Comment on above: Result Comment: Canc elled via OM: Order cancelled - Patient discharged Performed By: #### L 500.2500, L100.0100 ####[facility] [address] [place], [address] CBC W/Diff, Automatedon 11-2 Absolute Neut Normal 2.0-7.7 [facility] Comment on above: Result Comment: Canc elled via OM: Order cancelled - Patient discharged Performed By: #### L 500.2500, L100.0100 ####[facility] [address] [place], [address] HCT Normal 40-54 [facility] Comment on above: Result Comment: Canc elled via OM: Order cancelled - Patient discharged Performed By: #### L 500.2500, L100.0100 ####[facility] [address] [place], [address] HGB Normal 13.0-16.5 [facility] Comment on above: Result Comment: Canc elled via OM: Order cancelled - Patient discharged Performed By: #### L 500.2500, L100.0100 ####[facility] [address] [place], [address] MCH Normal 27.0-32.0 [facility] Comment on above: Result Comment: Canc elled via OM: Order cancelled - Patient discharged Performed By: #### L 500.2500, L100.0100 ####[facility] [address] [place], [address] MCHC Normal 32-36 [facility] Comment on above: Result Comment: Canc elled via OM: Order cancelled - Patient discharged Performed By: #### L 500.2500, L100.0100 ####[facility] [address] [place], [address] MCV Normal 80-94 [facility] Comment on above: Result Comment: Canc elled via OM: Order cancelled - Patient discharged Performed By: #### L 500.2500, L100.0100 ####[facility] [address] [place], [address] NEUT% Normal 47-70 [facility] Comment on above: Result Comment: Canc elled via OM: Order cancelled - Patient discharged Performed By: #### L 500.2500, L100.0100 ####[facility] [address] [place], [address] PLT Normal 150-450 [facility] Comment on above: Result Comment: Canc elled via OM: Order cancelled - Patient discharged Performed By: #### L 500.2500, L100.0100 ####[facility] [address] [place], [address] RBC Normal 4.6-6.2 [facility] Comment on above: Result Comment: Canc elled via OM: Order cancelled - Patient discharged Performed By: #### L 500.2500, L100.0100 ####[facility] [address] [place], [address] RDW CV Normal 11.6-14.6 [facility] Comment on above: Result Comment: Canc elled via OM: Order cancelled - Patient discharged Performed By: #### L 500.2500, L100.0100 ####[facility] [address] [place], [address] RDW SD Normal 35.1-43.9 [facility] Comment on above: Result Comment: Canc elled via OM: Order cancelled - Patient discharged Performed By: #### L 500.2500, L100.0100 ####[facility] [address] [place], [address] WBC Normal 4.4-11.0 [facility] Comment on above: Result Comment: Canc elled via OM: Order cancelled - Patient discharged Performed By: #### L 500.2500, L100.0100 ####[facility] [address] [place], [address] BRCon 04-13-2024 RC Normal [facility] Comment on above: Result Comment: [id number] AP RC TRANSFUSED 04/15/24 [id number] AP RC TRANSFUSED 04/15/24 1048 Performed By: #### L 100.0600, BTS, BR ####[facility] [address] [place], [address] Result Comment: [id number] AP RC ISSUED 04/15/24 [id number] AP RC READY Performed By: #### B RC, L100.0600, BTS ####[facility] [address] [place], [address] HH, Hemoglobin AND Hematocri ton 04-13-2024 Hematocrit (Bld) [Volume fraction] 27.8 % Low 40-54 [facility] Comment on above: Performed By: #### L 100.0600, BTS, BRC ####[facility] [address] [place], [address] Performed By: #### B RC, L100.0600, BTS ####[facility] [address] [place], [address] Hemoglobin (Bld) [Mass/Vol] 9.0 g/dL Low 13.0-16.5 [facility] Comment on above: Performed By: #### L 100.0600, REBEKA, SHAKIRA ####[facility] [address] [place], [address] Performed By: #### B RAMY, L100.0600, BTS ####[facility] [address] [place], [address] Type AND Screenon 04-13-2024 Ab SCREEN GEL Negative Normal [facility] Comment on above: Order Comment: NTNYA Performed By: #### L 100.0600, REBEKA, [facility] ####[facility] [address] [place], [address] Order Comment: A Performed By: #### B RAMY, L100.0600, [facility] ####[facility] [address] [place], [address] ABO and Rh group Nom (Bld) Blood group A Rh(D) positive Normal [facility] Comment on above: Order Comment: NTNYA Performed By: #### L 100.0600, REBEKA, [facility] ####[facility] [address] [place], [address] CBC W/Diff, Automatedon 03-19 Absolute Lymph 1.53 X10 3/uL Normal 0.83-4.51 [facility] Comment on above: Performed By: #### L 100.0100 ####[facility] [address] [place], [address] Absolute Neut 4.4 X10 3/uL Normal 2.0-7.7 [facility] Comment on above: Performed By: #### L 100.0100 ####[facility] [address] [place], [address] Basophils/100 WBC (Bld) 0.3 % Normal 0-1 [facility] Comment on above: Performed By: #### L 100.0100 ####[facility] [address] [place], [address] Eosinophils/100 WBC (Bld) 2.7 % Normal 0-5 [facility] Comment on above: Performed By: #### L 100.0100 ####[facility] [address] [place], [address] Erythrocyte distribution width (RBC) [Ratio] 13.7 % Normal 11.6-14.6 [facility] Comment on above: Performed By: #### L 100.0100 ####[facility] [address] [place], [address] Hematocrit (Bld) [Volume fraction] 24.0 % Low 40-54 [facility] Comment on above: Performed By: #### L 100.0100 ####[facility] [address] [place], [address] Hemoglobin (Bld) [Mass/Vol] 7.5 g/dL Low 13.0-16.5 [facility] Comment on above: Performed By: #### L 100.0100 ####[facility] [facility] [address] [place], [address] IG% 0.600 Normal 0.0-0.9 [facility] Comment on above: Result Comment: IG% - Immature Granulocytes (promyelocytes, myelocytes andmetamyelocytes) > 1% indicates that a LEFT SHIFT is Present. Performed By: #### L 100.0100 ####[facility] [address] [place], [address] Lymphocytes/100 WBC (Bld) 22.9 % Normal 19-41 [facility] Comment on above: Performed By: #### L 100.0100 ####[facility] [address] [place], [address] MCH (RBC) [Entitic mass] 30.1 pg Normal 27.0-32.0 [facility] Comment on above: Performed By: #### L 100.0100 ####[facility] [address] [place], [address] MCHC (RBC) [Mass/Vol] 31.3 g/dL Low 32-36 [facility] Comment on above: Performed By: #### L 100.0100 ####[facility] [address] [place], [address] MCV (RBC) [Entitic vol] 96.4 fL High 80-94 [facility] Comment on above: Performed By: #### L 100.0100 ####[facility] [address] [place], [address] Monocytes/100 WBC (Bld) 8.2 % Normal 0-10 [facility] Comment on above: Performed By: #### L 100.0100 ####[facility] [address] [place], [address] Neutrophils/100 WBC (Bld) 65.3 % Normal 47-70 [facility] Comment on above: Performed By: #### L 100.0100 ####[facility] [address] [place], [address] Nucleated RBC (Bld) [#/Vol] 0 10*3/uL Normal 0-5 [facility] Comment on above: Performed By: #### L 100.0100 ####[facility] [address] [place], [address] Platelet mean volume (Bld) [Entitic vol] 10.5 fL Normal 6.2-12.0 [facility] Comment on above: Performed By: #### L 100.0100 ####[facility] [address] [place], [address] Platelets (Bld) [#/Vol] 136 10*3/uL Low 150-450 [facility] Comment on above: Performed By: #### L 100.0100 ####[facility] [address] [place], [address] RBC (Bld) [#/Vol] 2.49 10*6/uL Low 4.6-6.2 [facility] Comment on above: Performed By: #### L 100.0100 ####[facility] [address] [place], [address] RDW SD 48.7 fl High 35.1-43.9 [facility] Comment on above: Performed By: #### L 100.0100 ####[facility] [address] [place], [address] WBC (Bld) [#/Vol] 6.7 10*3/uL Normal 4.4-11.0 [facility] Comment on above: Performed By: #### L 100.0100 ####[facility] [address] [place], [address] Bedside Glucoseon 04-09-2024 FINGERSTICK GLU 206 mg/dL High 74-106 [facility] Comment on above: Result Comment: ROBERTO GEMENT OF PATIENT CARE PER NURSING PROTOCOL Performed By: #### L 501.080 ####[facility] [address] [place], [address] FINGERSTICK GLU 116 mg/dL High 74-106 [facility] Comment on above: Result Comment: ROBERTO GEMENT OF PATIENT CARE PER NURSING PROTOCOL Performed By: #### L 501.080 ####[facility] [address] [place], [address] Bedside Glucoseon 04-08-2024 FINGERSTICK GLU 178 mg/dL High 74-106 [facility] Comment on above: Result Comment: ROBERTO GEMENT OF PATIENT CARE PER NURSING PROTOCOL Performed By: #### L 501.080 ####[facility] [address] [place], [address] FINGERSTICK GLU 153 mg/dL High 74-106 [facility] Comment on above: Result Comment: ROBERTO GEMENT OF PATIENT CARE PER NURSING PROTOCOL Performed By: #### L 501.080 ####[facility] [address] [place], [address] FINGERSTICK GLU 155 mg/dL High 74-106 [facility] Comment on above: Result Comment: ROBERTO GEMENT OF PATIENT CARE PER NURSING PROTOCOL Performed By: #### L 501.080 ####[facility] [address] [place], [address] FINGERSTICK GLU 150 mg/dL High 74-106 [facility] Comment on above: Result Comment: ROBERTO GEMENT OF PATIENT CARE PER NURSING PROTOCOL Performed By: #### L 501.080 ####[facility] [address] [place], [address] COVID 19 AG RAPID (NADIA De Souza)on 04-08-2024 SARS-CoV-2 (COVID-19) RNA VISHAL+probe Ql (Unsp spec) Normal [facility] Comment on above: Performed By: #### M 100.505 ####[facility] [address] [place], [address] HH, Hemoglobin AND Hematocri ton 04-08-2024 Hematocrit (Bld) [Volume fraction] 25.6 % Low 40-54 [facility] Comment on above: Performed By: #### L 100.0600 ####[facility] [address] [place], [address] Hemoglobin (Bld) [Mass/Vol] 8.0 g/dL Low 13.0-16.5 [facility] Comment on above: Performed By: #### L 100.0600 ####[facility] [address] [place], [address] Stool Occult Blood iFOBon STOB Positive Normal [facility] Comment on above: Performed By: #### M 100.7900 ####[facility] [address] [place], [address] Basic Metabolic Profile (BMP )on 04-07-2024 BUN/CRE 30.6 RATIO High 10-20 [facility] Comment on above: Performed By: #### L 500.2500, L100.0100 ####[facility] [address] [place], [address] CA,Total 8.5 mg/dL Normal 8.5-10.1 [facility] Comment on above: Performed By: #### L 500.2500, L100.0100 ####[facility] [address] [place], [address] Chloride [Moles/Vol] 102 mmol/L Normal 98-107 [facility] Comment on above: Performed By: #### L 500.2500, L100.0100 ####[facility] [address] [place], [address] CO2 [Moles/Vol] 31.0 mmol/L Normal 21.0-32.0 [facility] Comment on above: Performed By: #### L 500.2500, L100.0100 ####[facility] [address] [place], [address] Creatinine [Mass/Vol] 2.19 mg/dL High 0.70-1.30 [facility] Comment on above: Result Comment: The validity of the calculated GFR GFRAA in patients over70 years has not been determined. Clinical correlation isessential. Performed By: #### L 500.2500, L100.0100 ####[facility] [address] [place], [address] ECRCL 28.03 ml/min Normal [facility] Comment on above: Performed By: #### L 500.2500, L100.0100 ####[facility] [address] [place], [address] EST GFR - AA 37 mL/min Low >60 [facility] Comment on above: Result Comment: Afri can Senegalese GFR Calc Performed By: #### L 500.2500, L100.0100 ####[facility] [address] [place], [address] GAP 6 Normal 5-15 [facility] Comment on above: Performed By: #### L 500.2500, L100.0100 ####[facility] [address] [place], [address] GFR/1.73 sq M.predicted among non-blacks MDRD (S/P/Bld) [Vol rate/Area] 31 mL/min/{1.73_m2} Low >60 [facility] Comment on above: Result Comment: Non- GFR Calc Performed By: #### L 500.2500, L100.0100 ####[facility] [address] [place], [address] Glucose [Mass/Vol] 156 mg/dL High 74-106 [facility] Comment on above: Result Comment: Fast ing Glucose result greater than or equal to 126 mg/dLsuggests DIABETES MELLITUS per A.D.A. criteria. Performed By: #### L 500.2500, L100.0100 ####[facility] [address] [place], [address] Potassium [Moles/Vol] 4.2 mmol/L Normal 3.5-5.1 [facility] Comment on above: Performed By: #### L 500.2500, L100.0100 ####[facility] [address] [place], [address] Sodium [Moles/Vol] 138 mmol/L Normal 136-145 [facility] Comment on above: Performed By: #### L 500.2500, L100.0100 ####[facility] [address] [place], [address] Urea nitrogen [Mass/Vol] 67 mg/dL High 7-18 [facility] Comment on above: Performed By: #### L 500.2500, L100.0100 ####[facility] [address] [place], [address] Bedside Glucoseon 04-07-2024 FINGERSTICK GLU 248 mg/dL High 74-106 [facility] Comment on above: Result Comment: ROBERTO GEMENT OF PATIENT CARE PER NURSING PROTOCOL Performed By: #### L 501.080 ####[facility] [address] [place], [address] FINGERSTICK GLU 174 mg/dL High 74-106 [facility] Comment on above: Result Comment: ROBERTO GEMENT OF PATIENT CARE PER NURSING PROTOCOL Performed By: #### L 501.080 ####[facility] [address] [place], [address] FINGERSTICK GLU 206 mg/dL High 74-106 [facility] Comment on above: Result Comment: ROBERTO GEMENT OF PATIENT CARE PER NURSING PROTOCOL Performed By: #### L 501.080 ####[facility] [address] [place], [address] FINGERSTICK GLU 153 mg/dL High 74-106 [facility] Comment on above: Result Comment: ROBERTO GEMENT OF PATIENT CARE PER NURSING PROTOCOL Performed By: #### L 501.080 ####[facility] [address] [place], [address] CBC W/Diff, Automatedon - Absolute Lymph 1.83 X10 3/uL Normal 0.83-4.51 [facility] Comment on above: Performed By: #### L 500.2500, L100.0100 ####[facility] [address] [place], [address] Absolute Neut 3.8 X10 3/uL Normal 2.0-7.7 [facility] Comment on above: Performed By: #### L 500.2500, L100.0100 ####[facility] [address] [place], [address] Basophils/100 WBC (Bld) 0.6 % Normal 0-1 [facility] Comment on above: Performed By: #### L 500.2500, L100.0100 ####[facility] [address] [place], [address] Eosinophils/100 WBC (Bld) 2.9 % Normal 0-5 [facility] Comment on above: Performed By: #### L 500.2500, L100.0100 ####[facility] [address] [place], [address] Erythrocyte distribution width (RBC) [Ratio] 13.3 % Normal 11.6-14.6 [facility] Comment on above: Performed By: #### L 500.2500, L100.0100 ####[facility] [address] [place], [address] Hematocrit (Bld) [Volume fraction] 26.3 % Low 40-54 [facility] Comment on above: Performed By: #### L 500.2500, L100.0100 ####[facility] [address] [place], [address] Hemoglobin (Bld) [Mass/Vol] 8.5 g/dL Low 13.0-16.5 [facility] Comment on above: Performed By: #### L 500.2500, L100.0100 ####[facility] [address] [place], [address] IG% 0.800 Normal 0.0-0.9 [facility] Comment on above: Result Comment: IG% - Immature Granulocytes (promyelocytes, myelocytes andmetamyelocytes) > 1% indicates that a LEFT SHIFT is Present. Performed By: #### L 500.2500, L100.0100 ####[facility] [address] [place], [address] Lymphocytes/100 WBC (Bld) 28.1 % Normal 19-41 [facility] Comment on above: Performed By: #### L 500.2500, L100.0100 ####[facility] [address] [place], [address] MCH (RBC) [Entitic mass] 30.6 pg Normal 27.0-32.0 [facility] Comment on above: Performed By: #### L 500.2500, L100.0100 ####[facility] [address] [place], [address] MCHC (RBC) [Mass/Vol] 32.3 g/dL Normal 32-36 [facility] Comment on above: Performed By: #### L 500.2500, L100.0100 ####[facility] [address] [place], [address] MCV (RBC) [Entitic vol] 94.6 fL High 80-94 [facility] Comment on above: Performed By: #### L 500.2500, L100.0100 ####[facility] [address] [place], [address] Monocytes/100 WBC (Bld) 9.1 % Normal 0-10 [facility] Comment on above: Performed By: #### L 500.2500, L100.0100 ####[facility] [address] [place], [address] Neutrophils/100 WBC (Bld) 58.5 % Normal 47-70 [facility] Comment on above: Performed By: #### L 500.2500, L100.0100 ####[facility] [address] [place], [address] Nucleated RBC (Bld) [#/Vol] 0 10*3/uL Normal 0-5 [facility] Comment on above: Performed By: #### L 500.2500, L100.0100 ####[facility] [address] [place], [address] Platelet mean volume (Bld) [Entitic vol] 10.1 fL Normal 6.2-12.0 [facility] Comment on above: Performed By: #### L 500.2500, L100.0100 ####[facility] [address] [place], [address] Platelets (Bld) [#/Vol] 138 10*3/uL Low 150-450 [facility] Comment on above: Performed By: #### L 500.2500, L100.0100 ####[facility] [address] [place], [address] RBC (Bld) [#/Vol] 2.78 10*6/uL Low 4.6-6.2 [facility] Comment on above: Performed By: #### L 500.2500, L100.0100 ####[facility] [address] [place], [address] RDW SD 46.1 fl High 35.1-43.9 [facility] Comment on above: Performed By: #### L 500.2500, L100.0100 ####[facility] [address] [place], [address] WBC (Bld) [#/Vol] 6.5 10*3/uL Normal 4.4-11.0 [facility] Comment on above: Performed By: #### L 500.2500, L100.0100 ####[facility] [address] [place], [address] Bedside Glucoseon 04-06-2024 FINGERSTICK GLU 183 mg/dL High 74-106 [facility] Comment on above: Result Comment: ROBERTO GEMENT OF PATIENT CARE PER NURSING PROTOCOL Performed By: #### L 501.080 ####[facility] [address] [place], [address] FINGERSTICK GLU 166 mg/dL High [facility]106 [facility] Comment on above: Result Comment: ROBERTO GEMENT OF PATIENT CARE PER NURSING PROTOCOL Performed By: #### L 501.080 ####[facility] [address] [place], [address] FINGERSTICK GLU 186 mg/dL High -[address] [place] [address] Comment on above: Result Comment: ROBERTO GEMENT OF PATIENT CARE PER NURSING PROTOCOL Performed By: #### L 501.080 ####[facility] [address] [place], [address] FINGERSTICK GLU 122 mg/dL High [address] [place] [address] Comment on above: Result Comment: ROBERTO GEMENT OF PATIENT CARE PER NURSING PROTOCOL Performed By: #### L 501.080 ####[facility] [address] [place], [address] Bedside Glucoseon 04-05-2024 FINGERSTICK GLU 195 mg/dL High [address] [place] [address] Comment on above: Result Comment: ROBERTO GEMENT OF PATIENT CARE PER NURSING PROTOCOL Performed By: #### L 501.080 ####[facility] [address] [place], [address] FINGERSTICK GLU 206 mg/dL High [address] [place] [address] Comment on above: Result Comment: ROBERTO GEMENT OF PATIENT CARE PER NURSING PROTOCOL Performed By: #### L 501.080 ####[facility] [address] [place], [address] FINGERSTICK GLU 86 mg/dL Normal -[address] [place] [address] Comment on above: Result Comment: ROBERTO GEMENT OF PATIENT CARE PER NURSING PROTOCOL Performed By: #### L 501.080 ####[facility] [address] [place], [address] FINGERSTICK GLU 167 mg/dL High 74-106 [facility] Comment on above: Result Comment: ROBERTO GEMENT OF PATIENT CARE PER NURSING PROTOCOL Performed By: #### L 501.080 ####[facility] [address] [place], [address] Cardiology Visit Reporton Cardiology Visit Report Normal [facility] Bedside Glucoseon 04-04-2024 FINGERSTICK GLU 179 mg/dL High 74-106 [facility] Comment on above: Result Comment: ROBERTO GEMENT OF PATIENT CARE PER NURSING PROTOCOL Performed By: #### L 501.080 ####[facility] [address] [place], [address] FINGERSTICK GLU 204 mg/dL High 74-106 [facility] Comment on above: Result Comment: ROEBRTO GEMENT OF PATIENT CARE PER NURSING PROTOCOL Performed By: #### L 501.080 ####[facility] [address] [place], [address] FINGERSTICK GLU 82 mg/dL Normal 74-106 [facility] Comment on above: Result Comment: ROBERTO GEMENT OF PATIENT CARE PER NURSING PROTOCOL Performed By: #### L 501.080 ####[facility] [address] [place], [address] FINGERSTICK GLU 190 mg/dL High 74-106 [facility] Comment on above: Result Comment: ROBERTO GEMENT OF PATIENT CARE PER NURSING PROTOCOL Performed By: #### L 501.080 ####[facility] [address] [place], [address] Bedside Glucoseon 04-03-2024 FINGERSTICK GLU 239 mg/dL High 74-106 [facility] Comment on above: Result Comment: RBOERTO GEMENT OF PATIENT CARE PER NURSING PROTOCOL Performed By: #### L 501.080 ####[facility] [address] [place], [address] FINGERSTICK GLU 115 mg/dL High 74-106 [facility] Comment on above: Result Comment: ROBERTO GEMENT OF PATIENT CARE PER NURSING PROTOCOL Performed By: #### L 501.080 ####[facility] [address] [place], [address] FINGERSTICK GLU 272 mg/dL High 74-106 [facility] Comment on above: Result Comment: ROBERTO GEMENT OF PATIENT CARE PER NURSING PROTOCOL Performed By: #### L 501.080 ####[facility] [address] [place], [address] FINGERSTICK GLU 151 mg/dL High -106 [facility] Comment on above: Result Comment: ROBERTO GEMENT OF PATIENT CARE PER NURSING PROTOCOL Performed By: #### L 501.080 ####[facility] [address] [place], [address] Bedside Glucoseon 04-02-2024 FINGERSTICK GLU 255 mg/dL High -[address] [place] [address] Comment on above: Result Comment: ROBERTO GEMENT OF PATIENT CARE PER NURSING PROTOCOL Performed By: #### L 501.080 ####[facility] [address] [place], [address] FINGERSTICK GLU 134 mg/dL High 74-106 [facility] Comment on above: Result Comment: ROBERTO GEMENT OF PATIENT CARE PER NURSING PROTOCOL Performed By: #### L 501.080 ####[facility] [facility] [address] [place], [address] FINGERSTICK GLU 201 mg/dL High -106 [facility] Comment on above: Result Comment: ROBERTO GEMENT OF PATIENT CARE PER NURSING PROTOCOL Performed By: #### L 501.080 ####[facility] [address] [place], [address] FINGERSTICK GLU 158 mg/dL High 74-106 [facility] Comment on above: Result Comment: ROBERTO GEMENT OF PATIENT CARE PER NURSING PROTOCOL Performed By: #### L 501.080 ####[facility] [address] [place], [address] Bedside Glucoseon 04-01-2024 FINGERSTICK GLU 148 mg/dL High [address] [place] [address] Comment on above: Result Comment: ROBERTO GEMENT OF PATIENT CARE PER NURSING PROTOCOL Performed By: #### L 501.080 ####[facility] [address] [place], [address] FINGERSTICK GLU 246 mg/dL High [address] [place] [address] Comment on above: Result Comment: ROBERTO GEMENT OF PATIENT CARE PER NURSING PROTOCOL Performed By: #### L 501.080 ####[facility] [address] [place], [address] FINGERSTICK GLU 359 mg/dL High [address] [place] [address] Comment on above: Result Comment: ROBERTO GEMENT OF PATIENT CARE PER NURSING PROTOCOL Performed By: #### L 501.080 ####[facility] [address] [place], [address] FINGERSTICK GLU 275 mg/dL [address] Comment on above: Result Comment: ROBERTO GEMENT OF PATIENT CARE PER NURSING PROTOCOL Performed By: #### L 501.080 ####[facility] [address] [place], [address] COVID 19 AG RAPID (RN PASTOR De Souza)on 04-01-2024 SARS-CoV-2 (COVID-19) RNA VISHAL+probe Ql (Unsp spec) Normal [facility] Comment on above: Performed By: #### M 100.505 ####[facility] [address] [place], [address] Basic Metabolic Profile (BMP )on 03-31-2024 BUN/CRE 28.1 RATIO High 10-20 [facility] Comment on above: Performed By: #### L 500.2500, L100.0100 ####[facility] [address] [place], [address] CA,Total 8.4 mg/dL Low 8.5-10.1 [facility] Comment on above: Performed By: #### L 500.2500, L100.0100 ####[facility] [address] [place], [address] Chloride [Moles/Vol] 102 mmol/L Normal 98-107 [facility] Comment on above: Performed By: #### L 500.2500, L100.0100 ####[facility] [address] [place], [address] CO2 [Moles/Vol] 31.0 mmol/L Normal 21.0-32.0 [facility] Comment on above: Performed By: #### L 500.2500, L100.0100 ####[facility] [address] [place], [address] Creatinine [Mass/Vol] 2.10 mg/dL High 0.70-1.30 [facility] Comment on above: Result Comment: The validity of the calculated GFR GFRAA in patients over70 years has not been determined. Clinical correlation isessential. Performed By: #### L 500.2500, L100.0100 ####[facility] [address] [place], [address] ECRCL 29.14 ml/min Normal [facility] Comment on above: Performed By: #### L 500.2500, L100.0100 ####[facility] [address] [place], [address] EST GFR - AA 39 mL/min Low >60 [facility] Comment on above: Result Comment: Afri can Senegalese GFR Calc Performed By: #### L 500.2500, L100.0100 ####[facility] [address] [place], [address] GAP 4 Low 5-15 [facility] Comment on above: Performed By: #### L 500.2500, L100.0100 ####[facility] [address] [place], [address] GFR/1.73 sq M.predicted among non-blacks MDRD (S/P/Bld) [Vol rate/Area] 32 mL/min/{1.73_m2} Low >60 [facility] Comment on above: Result Comment: Non- GFR Calc Performed By: #### L 500.2500, L100.0100 ####[facility] [address] [place], [address] Glucose [Mass/Vol] 253 mg/dL High 74-106 [facility] Comment on above: Result Comment: Gluc ose result greater than or equal to 200 mg/dLsuggests DIABETES MELLITUS per A.D.A. criteria. Performed By: #### L 500.2500, L100.0100 ####[facility] [address] [place], [address] Potassium [Moles/Vol] 4.4 mmol/L Normal 3.5-5.1 [facility] Comment on above: Performed By: #### L 500.2500, L100.0100 ####[facility] [address] [place], [address] Sodium [Moles/Vol] 136 mmol/L Normal 136-145 [facility] Comment on above: Performed By: #### L 500.2500, L100.0100 ####[facility] [address] [place], [address] Urea nitrogen [Mass/Vol] 59 mg/dL High 7-18 [facility] Comment on above: Performed By: #### L 500.2500, L100.0100 ####[facility] [address] [place], [address] Bedside Glucoseon 03-31-2024 FINGERSTICK GLU 236 mg/dL High 74-106 [facility] Comment on above: Result Comment: ROBERTO BAÑUELOS OF PATIENT CARE PER NURSING PROTOCOL Performed By: #### L 501.080 ####[facility] [address] [place], [address] CBC W/Diff, Automatedon 03-18 Absolute Lymph 1.70 X10 3/uL Normal 0.83-4.51 [facility] Comment on above: Performed By: #### L 500.2500, L100.0100 ####[facility] [address] [place], [address] Absolute Neut 4.7 X10 3/uL Normal 2.0-7.7 [facility] Comment on above: Performed By: #### L 500.2500, L100.0100 ####[facility] [address] [place], [address] Basophils/100 WBC (Bld) 0.5 % Normal 0-1 [facility] Comment on above: Performed By: #### L 500.2500, L100.0100 ####[facility] [address] [place], [address] Eosinophils/100 WBC (Bld) 2.4 % Normal 0-5 [facility] Comment on above: Performed By: #### L 500.2500, L100.0100 ####[facility] [address] [place], [address] Erythrocyte distribution width (RBC) [Ratio] 13.3 % Normal 11.6-14.6 [facility] Comment on above: Performed By: #### L 500.2500, L100.0100 ####[facility] [address] [place], [address] Hematocrit (Bld) [Volume fraction] 27.0 % Low 40-54 [facility] Comment on above: Performed By: #### L 500.2500, L100.0100 ####[facility] [address] [place], [address] Hemoglobin (Bld) [Mass/Vol] 8.7 g/dL Low 13.0-16.5 [facility] Comment on above: Performed By: #### L 500.2500, L100.0100 ####[facility] [address] [place], [address] IG% 1.000 High 0.0-0.9 [facility] Comment on above: Result Comment: IG% - Immature Granulocytes (promyelocytes, myelocytes andmetamyelocytes) > 1% indicates that a LEFT SHIFT is Present. Performed By: #### L 500.2500, L100.0100 ####[facility] [address] [place], [address] Lymphocytes/100 WBC (Bld) 23.1 % Normal 19-41 [facility] Comment on above: Performed By: #### L 500.2500, L100.0100 ####[facility] [address] [place], [address] MCH (RBC) [Entitic mass] 30.5 pg Normal 27.0-32.0 [facility] Comment on above: Performed By: #### L 500.2500, L100.0100 ####[facility] [address] [place], [address] MCHC (RBC) [Mass/Vol] 32.2 g/dL Normal 32-36 [facility] Comment on above: Performed By: #### L 500.2500, L100.0100 ####[facility] [address] [place], [address] MCV (RBC) [Entitic vol] 94.7 fL High 80-94 [facility] Comment on above: Performed By: #### L 500.2500, L100.0100 ####[facility] [address] [place], [address] Monocytes/100 WBC (Bld) 8.4 % Normal 0-10 [facility] Comment on above: Performed By: #### L 500.2500, L100.0100 ####[facility] [address] [place], [address] Neutrophils/100 WBC (Bld) 64.6 % Normal 47-70 [facility] Comment on above: Performed By: #### L 500.2500, L100.0100 ####[facility] [address] [place], [address] Nucleated RBC (Bld) [#/Vol] 0 10*3/uL Normal 0-5 [facility] Comment on above: Performed By: #### L 500.2500, L100.0100 ####[facility] [address] [place], [address] Platelet mean volume (Bld) [Entitic vol] 9.8 fL Normal 6.2-12.0 [facility] Comment on above: Performed By: #### L 500.2500, L100.0100 ####[facility] [address] [place], [address] Platelets (Bld) [#/Vol] 167 10*3/uL Normal 150-450 [facility] Comment on above: Performed By: #### L 500.2500, L100.0100 ####[facility] [address] [place], [address] RBC (Bld) [#/Vol] 2.85 10*6/uL Low 4.6-6.2 [facility] Comment on above: Performed By: #### L 500.2500, L100.0100 ####[facility] [address] [place], [address] RDW SD 45.7 fl High 35.1-43.9 [facility] Comment on above: Performed By: #### L 500.2500, L100.0100 ####[facility] [address] [place], [address] WBC (Bld) [#/Vol] 7.4 10*3/uL Normal 4.4-11.0 [facility] Comment on above: Performed By: #### L 500.2500, L100.0100 ####[facility] [address] [place], [address] CTA Chest W/WO Contraston CTA Chest W/WO Contrast Normal [facility] Bedside Glucoseon 03-30-2024 FINGERSTICK GLU 222 mg/dL High 74-106 [facility] Comment on above: Result Comment: ROBERTO GEMENT OF PATIENT CARE PER NURSING PROTOCOL Performed By: #### L 501.080 ####[facility] [address] [place], [address] 12 Lead EKGon 03-29-2024 12 Lead EKG Normal [facility] Bedside Glucoseon 03-29-2024 FINGERSTICK GLU 268 mg/dL High 74-106 [facility] Comment on above: Result Comment: ROBERTO GEMENT OF PATIENT CARE PER NURSING PROTOCOL Performed By: #### L 501.080 ####[facility] [address] [place], [address] Bedside Glucoseon 03-28-2024 FINGERSTICK GLU 165 mg/dL High 74-106 [facility] Comment on above: Result Comment: ROBERTO GEMENT OF PATIENT CARE PER NURSING PROTOCOL Performed By: #### L 501.080 ####[facility] [address] [place], [address] Chest PA and Lateralon 03-28 Chest PA and Lateral Normal [facility] Basic Metabolic Profile (BMP )on 03-27-2024 BUN Normal 7-18 [facility] Comment on above: Result Comment: Canc elled via OM: Order cancelled - Patient discharged Performed By: #### L 100.0100, L500.2500 ####[facility] [address] [place], [address] BUN/CRE Normal 10-20 [facility] Comment on above: Result Comment: Canc elled via OM: Order cancelled - Patient discharged Performed By: #### L 100.0100, L500.2500 ####[facility] [address] [place], [address] CA,Total Normal 8.5-10.1 [facility] Comment on above: Result Comment: Canc elled via OM: Order cancelled - Patient discharged Performed By: #### L 100.0100, L500.2500 ####[facility] [address] [place], [address] CL Normal 98-107 [facility] Comment on above: Result Comment: Canc elled via OM: Order cancelled - Patient discharged Performed By: #### L 100.0100, L500.2500 ####[facility] [address] [place], [address] CO2 Normal 21.0-32.0 [facility] Comment on above: Result Comment: Canc elled via OM: Order cancelled - Patient discharged Performed By: #### L 100.0100, L500.2500 ####[facility] [address] [place], [address] CREAT,SERUM Normal 0.70-1.30 [facility] Comment on above: Result Comment: Canc elled via OM: Order cancelled - Patient discharged Performed By: #### L 100.0100, L500.2500 ####[facility] [address] [place], [address] EST GFR Normal >60 [facility] Comment on above: Result Comment: Canc elled via OM: Order cancelled - Patient discharged Performed By: #### L 100.0100, L500.2500 ####[facility] [address] [place], [address] EST GFR - AA Normal >60 [facility] Comment on above: Result Comment: Canc elled via OM: Order cancelled - Patient discharged Performed By: #### L 100.0100, L500.2500 ####[facility] [address] [place], [address] GAP Normal 5-15 [facility] Comment on above: Result Comment: Canc elled via OM: Order cancelled - Patient discharged Performed By: #### L 100.0100, L500.2500 ####[facility] [address] [place], [address] GLU Normal 74-106 [facility] Comment on above: Result Comment: Canc elled via OM: Order cancelled - Patient discharged Performed By: #### L 100.0100, L500.2500 ####[facility] [address] [place], [address] Potassium Normal 3.5-5.1 [facility] Comment on above: Result Comment: Canc elled via OM: Order cancelled - Patient discharged Performed By: #### L 100.0100, L500.2500 ####[facility] [address] [place], [address] Basic Metabolic Profile (BMP) Normal 136-145 [facility] Comment on above: Result Comment: Canc elled via OM: Order cancelled - Patient discharged Performed By: #### L 100.0100, L500.2500 ####[facility] [address] [place], [address] Bedside Glucoseon 03-27-2024 FINGERSTICK GLU 159 mg/dL High 74-106 [facility] Comment on above: Result Comment: ROBERTO EDDA OF PATIENT CARE PER NURSING PROTOCOL Performed By: #### L 501.080 ####[facility] [address] [place], [address] CBC W/Diff, Automatedon 11-1 0-2023 Absolute Neut Normal 2.0-7.7 [facility] Comment on above: Result Comment: Canc elled via OM: Order cancelled - Patient discharged Performed By: #### L 100.0100, L500.2500 ####[facility] [address] [place], [address] HCT Normal 40-54 [facility] Comment on above: Result Comment: Canc elled via OM: Order cancelled - Patient discharged Performed By: #### L 100.0100, L500.2500 ####[facility] [address] [place], [address] HGB Normal 13.0-16.5 [facility] Comment on above: Result Comment: Canc elled via OM: Order cancelled - Patient discharged Performed By: #### L 100.0100, L500.2500 ####[facility] [address] [place], [address] MCH Normal 27.0-32.0 [facility] Comment on above: Result Comment: Canc elled via OM: Order cancelled - Patient discharged Performed By: #### L 100.0100, L500.2500 ####[facility] [address] [place], [address] MCHC Normal 32-36 [facility] Comment on above: Result Comment: Canc elled via OM: Order cancelled - Patient discharged Performed By: #### L 100.0100, L500.2500 ####[facility] [address] [place], [address] MCV Normal 80-94 [facility] Comment on above: Result Comment: Canc elled via OM: Order cancelled - Patient discharged Performed By: #### L 100.0100, L500.2500 ####[facility] [address] [place], [address] NEUT% Normal 47-70 [facility] Comment on above: Result Comment: Canc elled via OM: Order cancelled - Patient discharged Performed By: #### L 100.0100, L500.2500 ####[facility] [address] [place], [address] PLT Normal 150-450 [facility] Comment on above: Result Comment: Canc elled via OM: Order cancelled - Patient discharged Performed By: #### L 100.0100, L500.2500 ####[facility] [address] [place], [address] RBC Normal 4.6-6.2 [facility] Comment on above: Result Comment: Canc elled via OM: Order cancelled - Patient discharged Performed By: #### L 100.0100, L500.2500 ####[facility] [address] [place], [address] RDW CV Normal 11.6-14.6 [facility] Comment on above: Result Comment: Canc elled via OM: Order cancelled - Patient discharged Performed By: #### L 100.0100, L500.2500 ####[facility] [address] [place], [address] RDW SD Normal 35.1-43.9 [facility] Comment on above: Result Comment: Canc elled via OM: Order cancelled - Patient discharged Performed By: #### L 100.0100, L500.2500 ####[facility] [address] [place], [address] WBC Normal 4.4-11.0 [facility] Comment on above: Result Comment: Canc elled via OM: Order cancelled - Patient discharged Performed By: #### L 100.0100, L500.2500 ####[facility] [address] [place], [address] Respiratory Cultureon 2023 RESPC List Antibiotics [place] 48 Hours? levaquin Mixed normal respiratory robel. No Haemophilus, Streptococcus pneumoniae, beta-hemolytic Streptococcus or Staphylococcus aureus isolated. Normal [facility] Comment on above: Performed By: #### M 100.2400, M100.2000 ####[facility] [address] [place], [address] Basic Metabolic Profile (BMP )on 03-26-2024 BUN Normal 7-18 [facility] Comment on above: Result Comment: Canc elled via OM: Order cancelled - Patient discharged Performed By: #### L 500.2500, L100.0100 ####[facility] [address] [place], [address] BUN/CRE Normal 10-20 [facility] Comment on above: Result Comment: Canc elled via OM: Order cancelled - Patient discharged Performed By: #### L 500.2500, L100.0100 ####[facility] [address] [place], [address] CA,Total Normal 8.5-10.1 [facility] Comment on above: Result Comment: Canc elled via OM: Order cancelled - Patient discharged Performed By: #### L 500.2500, L100.0100 ####[facility] [address] [place], [address] CL Normal 98-107 [facility] Comment on above: Result Comment: Canc elled via OM: Order cancelled - Patient discharged Performed By: #### L 500.2500, L100.0100 ####[facility] [address] [place], [address] CO2 Normal 21.0-32.0 [facility] Comment on above: Result Comment: Canc elled via OM: Order cancelled - Patient discharged Performed By: #### L 500.2500, L100.0100 ####[facility] [address] [place], [address] CREAT,SERUM Normal 0.70-1.30 [facility] Comment on above: Result Comment: Canc elled via OM: Order cancelled - Patient discharged Performed By: #### L 500.2500, L100.0100 ####[facility] [address] [place], [address] EST GFR Normal >60 [facility] Comment on above: Result Comment: Canc elled via OM: Order cancelled - Patient discharged Performed By: #### L 500.2500, L100.0100 ####[facility] [address] [place], [address] EST GFR - AA Normal >60 [facility] Comment on above: Result Comment: Canc elled via OM: Order cancelled - Patient discharged Performed By: #### L 500.2500, L100.0100 ####[facility] [address] [place], [address] GAP Normal 5-15 [facility] Comment on above: Result Comment: Canc elled via OM: Order cancelled - Patient discharged Performed By: #### L 500.2500, L100.0100 ####[facility] [address] [place], [address] GLU Normal 74-106 [facility] Comment on above: Result Comment: Canc elled via OM: Order cancelled - Patient discharged Performed By: #### L 500.2500, L100.0100 ####[facility] [address] [place], [address] Potassium Normal 3.5-5.1 [facility] Comment on above: Result Comment: Canc elled via OM: Order cancelled - Patient discharged Performed By: #### L 500.2500, L100.0100 ####[facility] [address] [place], [address] Basic Metabolic Profile (BMP) Normal 136-145 [facility] Comment on above: Result Comment: Canc elled via OM: Order cancelled - Patient discharged Performed By: #### L 500.2500, L100.0100 ####[facility] [address] [place], [address] Bedside Glucoseon 03-26-2024 FINGERSTICK GLU 244 mg/dL High 74-106 [facility] Comment on above: Result Comment: ROBERTO GEMENT OF PATIENT CARE PER NURSING PROTOCOL Performed By: #### L 501.080 ####[facility] [address] [place], [address] FINGERSTICK GLU 246 mg/dL High 74-106 [facility] Comment on above: Result Comment: ROBERTO GEMENT OF PATIENT CARE PER NURSING PROTOCOL Performed By: #### L 501.080 ####[facility] [address] [place], [address] FINGERSTICK GLU 221 mg/dL High 74-106 [facility] Comment on above: Result Comment: ROBERTO GEMENT OF PATIENT CARE PER NURSING PROTOCOL Performed By: #### L 501.080 ####[facility] [address] [place], [address] FINGERSTICK GLU 144 mg/dL High -106 [facility] Comment on above: Result Comment: ROBERTO GEMENT OF PATIENT CARE PER NURSING PROTOCOL Performed By: #### L 501.080 ####[facility] [address] [place], [address] CBC W/Diff, Automatedon 11-0 Absolute Neut Normal 2.0-7.7 [facility] Comment on above: Result Comment: Canc elled via OM: Order cancelled - Patient discharged Performed By: #### L 500.2500, L100.0100 ####[facility] [address] [place], [address] HCT Normal 40-54 [facility] Comment on above: Result Comment: Canc elled via OM: Order cancelled - Patient discharged Performed By: #### L 500.2500, L100.0100 ####[facility] [address] [place], [address] HGB Normal 13.0-16.5 [facility] Comment on above: Result Comment: Canc elled via OM: Order cancelled - Patient discharged Performed By: #### L 500.2500, L100.0100 ####[facility] [address] [place], [address] MCH Normal 27.0-32.0 [facility] Comment on above: Result Comment: Canc elled via OM: Order cancelled - Patient discharged Performed By: #### L 500.2500, L100.0100 ####[facility] [address] [place], [address] MCHC Normal 32-36 [facility] Comment on above: Result Comment: Canc elled via OM: Order cancelled - Patient discharged Performed By: #### L 500.2500, L100.0100 ####[facility] [address] [place], [address] MCV Normal 80-94 [facility] Comment on above: Result Comment: Canc elled via OM: Order cancelled - Patient discharged Performed By: #### L 500.2500, L100.0100 ####[facility] [address] [place], [address] NEUT% Normal 47-70 [facility] Comment on above: Result Comment: Canc elled via OM: Order cancelled - Patient discharged Performed By: #### L 500.2500, L100.0100 ####[facility] [address] [place], [address] PLT Normal 150-450 [facility] Comment on above: Result Comment: Canc elled via OM: Order cancelled - Patient discharged Performed By: #### L 500.2500, L100.0100 ####[facility] [address] [place], [address] RBC Normal 4.6-6.2 [facility] Comment on above: Result Comment: Canc elled via OM: Order cancelled - Patient discharged Performed By: #### L 500.2500, L100.0100 ####[facility] [address] [place], [address] RDW CV Normal 11.6-14.6 [facility] Comment on above: Result Comment: Canc elled via OM: Order cancelled - Patient discharged Performed By: #### L 500.2500, L100.0100 ####[facility] [address] [place], [address] RDW SD Normal 35.1-43.9 [facility] Comment on above: Result Comment: Canc elled via OM: Order cancelled - Patient discharged Performed By: #### L 500.2500, L100.0100 ####[facility] [address] [place], [address] WBC Normal 4.4-11.0 [facility] Comment on above: Result Comment: Canc elled via OM: Order cancelled - Patient discharged Performed By: #### L 500.2500, L100.0100 ####[facility] [address] [place], [address] Basic Metabolic Profile (BMP )on 03-25-2024 BUN Normal 7-18 [facility] Comment on above: Result Comment: Canc elled via OM: Order cancelled - Patient discharged Performed By: #### L 100.0100, L500.2500 ####[facility] [address] [place], [address] BUN/CRE Normal 10-20 [facility] Comment on above: Result Comment: Canc elled via OM: Order cancelled - Patient discharged Performed By: #### L 100.0100, L500.2500 ####[facility] [address] [place], [address] CA,Total Normal 8.5-10.1 [facility] Comment on above: Result Comment: Canc elled via OM: Order cancelled - Patient discharged Performed By: #### L 100.0100, L500.2500 ####[facility] [address] [place], [address] CL Normal 98-107 [facility] Comment on above: Result Comment: Canc elled via OM: Order cancelled - Patient discharged Performed By: #### L 100.0100, L500.2500 ####[facility] [address] [place], [address] CO2 Normal 21.0-32.0 [facility] Comment on above: Result Comment: Canc elled via OM: Order cancelled - Patient discharged Performed By: #### L 100.0100, L500.2500 ####[facility] [address] [place], [address] CREAT,SERUM Normal 0.70-1.30 [facility] Comment on above: Result Comment: Canc elled via OM: Order cancelled - Patient discharged Performed By: #### L 100.0100, L500.2500 ####[facility] [address] [place], [address] EST GFR Normal >60 [facility] Comment on above: Result Comment: Canc elled via OM: Order cancelled - Patient discharged Performed By: #### L 100.0100, L500.2500 ####[facility] [address] [place], [address] EST GFR - AA Normal >60 [facility] Comment on above: Result Comment: Canc elled via OM: Order cancelled - Patient discharged Performed By: #### L 100.0100, L500.2500 ####[facility] [address] [place], [address] GAP Normal 5-15 [facility] Comment on above: Result Comment: Canc elled via OM: Order cancelled - Patient discharged Performed By: #### L 100.0100, L500.2500 ####[facility] [address] [place], [address] GLU Normal 74-106 [facility] Comment on above: Result Comment: Canc elled via OM: Order cancelled - Patient discharged Performed By: #### L 100.0100, L500.2500 ####[facility] [address] [place], [address] Potassium Normal 3.5-5.1 [facility] Comment on above: Result Comment: Canc elled via OM: Order cancelled - Patient discharged Performed By: #### L 100.0100, L500.2500 ####[facility] [address] [place], [address] Basic Metabolic Profile (BMP) Normal 136-145 [facility] Comment on above: Result Comment: Canc elled via OM: Order cancelled - Patient discharged Performed By: #### L 100.0100, L500.2500 ####[facility] [address] [place], [address] Bedside Glucoseon 03-25-2024 FINGERSTICK GLU 239 mg/dL High 74-106 [facility] Comment on above: Result Comment: ROBERTO GEMENT OF PATIENT CARE PER NURSING PROTOCOL Performed By: #### L 501.080 ####[facility] [address] [place], [address] FINGERSTICK GLU 162 mg/dL High 74-106 [facility] Comment on above: Result Comment: ROBERTO GEMENT OF PATIENT CARE PER NURSING PROTOCOL Performed By: #### L 501.080 ####[facility] [address] [place], [address] FINGERSTICK GLU 237 mg/dL High 74-106 [facility] Comment on above: Result Comment: ROBERTO GEMENT OF PATIENT CARE PER NURSING PROTOCOL Performed By: #### L 501.080 ####[facility] [address] [place], [address] FINGERSTICK GLU 54 mg/dL Low 74-106 [facility] Comment on above: Result Comment: ROBERTO GEMENT OF PATIENT CARE PER NURSING PROTOCOL Performed By: #### L 501.080 ####[facility] [address] [place], [address] FINGERSTICK GLU 53 mg/dL Low 74-106 [facility] Comment on above: Result Comment: ROBERTO GEMENT OF PATIENT CARE PER NURSING PROTOCOL Performed By: #### L 501.080 ####[facility] [address] [place], [address] FINGERSTICK GLU 86 mg/dL Normal 74-106 [facility] Comment on above: Result Comment: ROBERTO GEMENT OF PATIENT CARE PER NURSING PROTOCOL Performed By: #### L 501.080 ####[facility] [address] [place], [address] CBC W/Diff, Automatedon 11-0 -2023 Absolute Neut Normal 2.0-7.7 [facility] Comment on above: Result Comment: Canc elled via OM: Order cancelled - Patient discharged Performed By: #### L 100.0100, L500.2500 ####[facility] [address] [place], [address] HCT Normal 40-54 [facility] Comment on above: Result Comment: Canc elled via OM: Order cancelled - Patient discharged Performed By: #### L 100.0100, L500.2500 ####[facility] [address] [place], [address] HGB Normal 13.0-16.5 [facility] Comment on above: Result Comment: Canc elled via OM: Order cancelled - Patient discharged Performed By: #### L 100.0100, L500.2500 ####[facility] [address] [place], [address] MCH Normal 27.0-32.0 [facility] Comment on above: Result Comment: Canc elled via OM: Order cancelled - Patient discharged Performed By: #### L 100.0100, L500.2500 ####[facility] [address] [place], [address] MCHC Normal 32-36 [facility] Comment on above: Result Comment: Canc elled via OM: Order cancelled - Patient discharged Performed By: #### L 100.0100, L500.2500 ####[facility] [address] [place], [address] MCV Normal 80-94 [facility] Comment on above: Result Comment: Canc elled via OM: Order cancelled - Patient discharged Performed By: #### L 100.0100, L500.2500 ####[facility] [address] [place], [address] NEUT% Normal 47-70 [facility] Comment on above: Result Comment: Canc elled via OM: Order cancelled - Patient discharged Performed By: #### L 100.0100, L500.2500 ####[facility] [address] [place], [address] PLT Normal 150-450 [facility] Comment on above: Result Comment: Canc elled via OM: Order cancelled - Patient discharged Performed By: #### L 100.0100, L500.2500 ####[facility] [address] [place], [address] RBC Normal 4.6-6.2 [facility] Comment on above: Result Comment: Canc elled via OM: Order cancelled - Patient discharged Performed By: #### L 100.0100, L500.2500 ####[facility] [address] [place], [address] RDW CV Normal 11.6-14.6 [facility] Comment on above: Result Comment: Canc elled via OM: Order cancelled - Patient discharged Performed By: #### L 100.0100, L500.2500 ####[facility] [address] [place], [address] RDW SD Normal 35.1-43.9 [facility] Comment on above: Result Comment: Canc elled via OM: Order cancelled - Patient discharged Performed By: #### L 100.0100, L500.2500 ####[facility] [address] [place], [address] WBC Normal 4.4-11.0 [facility] Comment on above: Result Comment: Canc elled via OM: Order cancelled - Patient discharged Performed By: #### L 100.0100, L500.2500 ####[facility] [address] [place], [address] Gram Stainon 03-25-2024 GS List Antibiotics [place] 48 Hours? levaquin Acceptable Specimen? Yes (<25 Epithelial cells per/lpf) Gram Stain 1+ Gram positive cocci Rare Gram positive rods 1+ White Blood Cells Rare Epithelial cells Normal [facility] Comment on above: Performed By: #### M 100.2400, M100.2000 ####[facility] [address] [place], [address] Basic Metabolic Profile (BMP )on 03-24-2024 BUN/CRE 26.2 RATIO High 10-20 [facility] Comment on above: Performed By: #### L 100.0100, L500.2500 ####[facility] [address] [place], [address] CA,Total 8.6 mg/dL Normal 8.5-10.1 [facility] Comment on above: Performed By: #### L 100.0100, L500.2500 ####[facility] [address] [place], [address] Chloride [Moles/Vol] 113 mmol/L High 98-107 [facility] Comment on above: Performed By: #### L 100.0100, L500.2500 ####[facility] [address] [place], [address] CO2 [Moles/Vol] 25.0 mmol/L Normal 21.0-32.0 [facility] Comment on above: Performed By: #### L 100.0100, L500.2500 ####[facility] [address] [place], [address] Creatinine [Mass/Vol] 1.91 mg/dL High 0.70-1.30 [facility] Comment on above: Result Comment: The validity of the calculated GFR GFRAA in patients over70 years has not been determined. Clinical correlation isessential. Performed By: #### L 100.0100, L500.2500 ####[facility] [address] [place], [address] ECRCL 31.64 ml/min Normal [facility] Comment on above: Performed By: #### L 100.0100, L500.2500 ####[facility] [address] [place], [address] EST GFR - AA 43 mL/min Low >60 [facility] Comment on above: Result Comment: Afri can Senegalese GFR Calc Performed By: #### L 100.0100, L500.2500 ####[facility] [address] [place], [address] GAP 3 Low 5-15 [facility] Comment on above: Performed By: #### L 100.0100, L500.2500 ####[facility] [address] [place], [address] GFR/1.73 sq M.predicted among non-blacks MDRD (S/P/Bld) [Vol rate/Area] 36 mL/min/{1.73_m2} Low >60 [facility] Comment on above: Result Comment: Non- GFR Calc Performed By: #### L 100.0100, L500.2500 ####[facility] [address] [place], [address] Glucose [Mass/Vol] 151 mg/dL High 74-106 [facility] Comment on above: Result Comment: Fast ing Glucose result greater than or equal to 126 mg/dLsuggests DIABETES MELLITUS per A.D.A. criteria. Performed By: #### L 100.0100, L500.2500 ####[facility] [address] [place], [address] Potassium [Moles/Vol] 4.3 mmol/L Normal 3.5-5.1 [facility] Comment on above: Performed By: #### L 100.0100, L500.2500 ####[facility] [address] [place], [address] Sodium [Moles/Vol] 141 mmol/L Normal 136-145 [facility] Comment on above: Performed By: #### L 100.0100, L500.2500 ####[facility] [address] [place], [address] Urea nitrogen [Mass/Vol] 50 mg/dL High 7-18 [facility] Comment on above: Performed By: #### L 100.0100, L500.2500 ####[facility] [address] [place], [address] BUN Normal 7-18 [facility] Comment on above: Result Comment: Canc elled via OM: Order cancelled - Patient discharged Performed By: #### L 500.2500, L100.0100 ####[facility] [address] [place], [address] BUN/CRE Normal 10-20 [facility] Comment on above: Result Comment: Canc elled via OM: Order cancelled - Patient discharged Performed By: #### L 500.2500, L100.0100 ####[facility] [address] [place], [address] CA,Total Normal 8.5-10.1 [facility] Comment on above: Result Comment: Canc elled via OM: Order cancelled - Patient discharged Performed By: #### L 500.2500, L100.0100 ####[facility] [address] [place], [address] CL Normal 98-107 [facility] Comment on above: Result Comment: Canc elled via OM: Order cancelled - Patient discharged Performed By: #### L 500.2500, L100.0100 ####[facility] [address] [place], [address] CO2 Normal 21.0-32.0 [facility] Comment on above: Result Comment: Canc elled via OM: Order cancelled - Patient discharged Performed By: #### L 500.2500, L100.0100 ####[facility] [address] [place], [address] CREAT,SERUM Normal 0.70-1.30 [facility] Comment on above: Result Comment: Canc elled via OM: Order cancelled - Patient discharged Performed By: #### L 500.2500, L100.0100 ####[facility] [address] [place], [address] EST GFR Normal >60 [facility] Comment on above: Result Comment: Canc elled via OM: Order cancelled - Patient discharged Performed By: #### L 500.2500, L100.0100 ####[facility] [address] [place], [address] EST GFR - AA Normal >60 [facility] Comment on above: Result Comment: Canc elled via OM: Order cancelled - Patient discharged Performed By: #### L 500.2500, L100.0100 ####[facility] [address] [place], [address] GAP Normal 5-15 [facility] Comment on above: Result Comment: Canc elled via OM: Order cancelled - Patient discharged Performed By: #### L 500.2500, L100.0100 ####[facility] [address] [place], [address] GLU Normal 74-106 [facility] Comment on above: Result Comment: Canc elled via OM: Order cancelled - Patient discharged Performed By: #### L 500.2500, L100.0100 ####[facility] [address] [place], [address] Potassium Normal 3.5-5.1 [facility] Comment on above: Result Comment: Canc elled via OM: Order cancelled - Patient discharged Performed By: #### L 500.2500, L100.0100 ####[facility] [address] [place], [address] Basic Metabolic Profile (BMP) Normal 136-145 [facility] Comment on above: Result Comment: Canc elled via OM: Order cancelled - Patient discharged Performed By: #### L 500.2500, L100.0100 ####[facility] [address] [place], [address] Bedside Glucoseon 03-24-2024 FINGERSTICK GLU 205 mg/dL High 74-106 [facility] Comment on above: Result Comment: ROBERTO GEMENT OF PATIENT CARE PER NURSING PROTOCOL Performed By: #### L 501.080 ####[facility] [address] [place], [address] FINGERSTICK GLU 99 mg/dL Normal 74-106 [facility] Comment on above: Result Comment: ROBERTO GEMENT OF PATIENT CARE PER NURSING PROTOCOL Performed By: #### L 501.080 ####[facility] [address] [place], [address] FINGERSTICK GLU 207 mg/dL High 74-106 [facility] Comment on above: Result Comment: ROBERTO GEMENT OF PATIENT CARE PER NURSING PROTOCOL Performed By: #### L 501.080 ####[facility] [address] [place], [address] FINGERSTICK GLU 139 mg/dL High 74-106 [facility] Comment on above: Result Comment: ROBERTO GEMENT OF PATIENT CARE PER NURSING PROTOCOL Performed By: #### L 501.080 ####[facility] [address] [place], [address] CBC W/Diff, Automatedon 11-0 7-2023 Absolute Lymph 1.16 X10 3/uL Normal 0.83-4.51 [facility] Comment on above: Performed By: #### L 100.0100, L500.2500 ####[facility] [address] [place], [address] Absolute Neut 7.0 X10 3/uL Normal 2.0-7.7 [facility] Comment on above: Performed By: #### L 100.0100, L500.2500 ####[facility] [address] [place], [address] Basophils/100 WBC (Bld) 0.2 % Normal 0-1 [facility] Comment on above: Performed By: #### L 100.0100, L500.2500 ####[facility] [address] [place], [address] Eosinophils/100 WBC (Bld) 3.8 % Normal 0-5 [facility] Comment on above: Performed By: #### L 100.0100, L500.2500 ####[facility] [address] [place], [address] Erythrocyte distribution width (RBC) [Ratio] 13.5 % Normal 11.6-14.6 [facility] Comment on above: Performed By: #### L 100.0100, L500.2500 ####[facility] [address] [place], [address] Hematocrit (Bld) [Volume fraction] 27.1 % Low 40-54 [facility] Comment on above: Performed By: #### L 100.0100, L500.2500 ####[facility] [address] [place], [address] Hemoglobin (Bld) [Mass/Vol] 8.8 g/dL Low 13.0-16.5 [facility] Comment on above: Performed By: #### L 100.0100, L500.2500 ####[facility] [address] [place], [address] IG% 1.100 High 0.0-0.9 [facility] Comment on above: Result Comment: IG% - Immature Granulocytes (promyelocytes, myelocytes andmetamyelocytes) > 1% indicates that a LEFT SHIFT is Present. Performed By: #### L 100.0100, L500.2500 ####[facility] [address] [place], [address] Lymphocytes/100 WBC (Bld) 12.5 % Low 19-41 [facility] Comment on above: Performed By: #### L 100.0100, L500.2500 ####[facility] [address] [place], [address] MCH (RBC) [Entitic mass] 31.1 pg Normal 27.0-32.0 [facility] Comment on above: Performed By: #### L 100.0100, L500.2500 ####[facility] [address] [place], [address] MCHC (RBC) [Mass/Vol] 32.5 g/dL Normal 32-36 [facility] Comment on above: Performed By: #### L 100.0100, L500.2500 ####[facility] [address] [place], [address] MCV (RBC) [Entitic vol] 95.8 fL High 80-94 [facility] Comment on above: Performed By: #### L 100.0100, L500.2500 ####[facility] [address] [place], [address] Monocytes/100 WBC (Bld) 7.2 % Normal 0-10 [facility] Comment on above: Performed By: #### L 100.0100, L500.2500 ####[facility] [address] [place], [address] Neutrophils/100 WBC (Bld) 75.2 % High 47-70 [facility] Comment on above: Performed By: #### L 100.0100, L500.2500 ####[facility] [address] [place], [address] Nucleated RBC (Bld) [#/Vol] 0 10*3/uL Normal 0-5 [facility] Comment on above: Performed By: #### L 100.0100, L500.2500 ####[facility] [address] [place], [address] Platelet mean volume (Bld) [Entitic vol] 9.9 fL Normal 6.2-12.0 [facility] Comment on above: Performed By: #### L 100.0100, L500.2500 ####[facility] [address] [place], [address] Platelets (Bld) [#/Vol] 153 10*3/uL Normal 150-450 [facility] Comment on above: Performed By: #### L 100.0100, L500.2500 ####[facility] [address] [place], [address] RBC (Bld) [#/Vol] 2.83 10*6/uL Low 4.6-6.2 [facility] Comment on above: Performed By: #### L 100.0100, L500.2500 ####[facility] [address] [place], [address] RDW SD 47.0 fl High 35.1-43.9 [facility] Comment on above: Performed By: #### L 100.0100, L500.2500 ####[facility] [address] [place], [address] WBC (Bld) [#/Vol] 9.3 10*3/uL Normal 4.4-11.0 [facility] Comment on above: Performed By: #### L 100.0100, L500.2500 ####[facility] [address] [place], [address] Absolute Neut Normal 2.0-7.7 [facility] Comment on above: Result Comment: Canc elled via OM: Order cancelled - Patient discharged Performed By: #### L 500.2500, L100.0100 ####[facility] [address] [place], [address] HCT Normal 40-54 [facility] Comment on above: Result Comment: Canc elled via OM: Order cancelled - Patient discharged Performed By: #### L 500.2500, L100.0100 ####[facility] [address] [place], [address] HGB Normal 13.0-16.5 [facility] Comment on above: Result Comment: Canc elled via OM: Order cancelled - Patient discharged Performed By: #### L 500.2500, L100.0100 ####[facility] [address] [place], [address] MCH Normal 27.0-32.0 [facility] Comment on above: Result Comment: Canc elled via OM: Order cancelled - Patient discharged Performed By: #### L 500.2500, L100.0100 ####[facility] [address] [place], [address] MCHC Normal 32-36 [facility] Comment on above: Result Comment: Canc elled via OM: Order cancelled - Patient discharged Performed By: #### L 500.2500, L100.0100 ####[facility] [address] [place], [address] MCV Normal 80-94 [facility] Comment on above: Result Comment: Canc elled via OM: Order cancelled - Patient discharged Performed By: #### L 500.2500, L100.0100 ####[facility] [address] [place], [address] NEUT% Normal 47-70 [facility] Comment on above: Result Comment: Canc elled via OM: Order cancelled - Patient discharged Performed By: #### L 500.2500, L100.0100 ####[facility] [address] [place], [address] PLT Normal 150-450 [facility] Comment on above: Result Comment: Canc elled via OM: Order cancelled - Patient discharged Performed By: #### L 500.2500, L100.0100 ####[facility] [address] [place], [address] RBC Normal 4.6-6.2 [facility] Comment on above: Result Comment: Canc elled via OM: Order cancelled - Patient discharged Performed By: #### L 500.2500, L100.0100 ####[facility] [address] [place], [address] RDW CV Normal 11.6-14.6 [facility] Comment on above: Result Comment: Canc elled via OM: Order cancelled - Patient discharged Performed By: #### L 500.2500, L100.0100 ####[facility] [address] [place], [address] RDW SD Normal 35.1-43.9 [facility] Comment on above: Result Comment: Canc elled via OM: Order cancelled - Patient discharged Performed By: #### L 500.2500, L100.0100 ####[facility] [address] [place], [address] WBC Normal 4.4-11.0 [facility] Comment on above: Result Comment: Canc elled via OM: Order cancelled - Patient discharged Performed By: #### L 500.2500, L100.0100 ####[facility] [address] [place], [address] Basic Metabolic Profile (BMP )on 03-23-2024 BUN/CRE 29.8 RATIO High 10-20 [facility] Comment on above: Performed By: #### L 500.2500, L100.0100 ####[facility] [address] [place], [address] CA,Total 8.6 mg/dL Normal 8.5-10.1 [facility] Comment on above: Performed By: #### L 500.2500, L100.0100 ####[facility] [address] [place], [address] Chloride [Moles/Vol] 112 mmol/L High 98-107 [facility] Comment on above: Performed By: #### L 500.2500, L100.0100 ####[facility] [address] [place], [address] CO2 [Moles/Vol] 25.0 mmol/L Normal 21.0-32.0 [facility] Comment on above: Performed By: #### L 500.2500, L100.0100 ####[facility] [address] [place], [address] Creatinine [Mass/Vol] 1.91 mg/dL High 0.70-1.30 [facility] Comment on above: Result Comment: The validity of the calculated GFR GFRAA in patients over70 years has not been determined. Clinical correlation isessential. Performed By: #### L 500.2500, L100.0100 ####[facility] [address] [place], [address] ECRCL 34.91 ml/min Normal [facility] Comment on above: Performed By: #### L 500.2500, L100.0100 ####[facility] [address] [place], [address] EST GFR - AA 43 mL/min Low >60 [facility] Comment on above: Result Comment: Afri can Senegalese GFR Calc Performed By: #### L 500.2500, L100.0100 ####[facility] [address] [place], [address] GAP 4 Low 5-15 [facility] Comment on above: Performed By: #### L 500.2500, L100.0100 ####[facility] [address] [place], [address] GFR/1.73 sq M.predicted among non-blacks MDRD (S/P/Bld) [Vol rate/Area] 36 mL/min/{1.73_m2} Low >60 [facility] Comment on above: Result Comment: Non- GFR Calc Performed By: #### L 500.2500, L100.0100 ####[facility] [address] [place], [address] Glucose [Mass/Vol] 158 mg/dL High 74-106 [facility] Comment on above: Result Comment: Fast ing Glucose result greater than or equal to 126 mg/dLsuggests DIABETES MELLITUS per A.D.A. criteria. Performed By: #### L 500.2500, L100.0100 ####[facility] [address] [place], [address] Potassium [Moles/Vol] 4.3 mmol/L Normal 3.5-5.1 [facility] Comment on above: Performed By: #### L 500.2500, L100.0100 ####[facility] [address] [place], [address] Sodium [Moles/Vol] 142 mmol/L Normal 136-145 [facility] Comment on above: Performed By: #### L 500.2500, L100.0100 ####[facility] [address] [place], [address] Urea nitrogen [Mass/Vol] 57 mg/dL High 7-18 [facility] Comment on above: Performed By: #### L 500.2500, L100.0100 ####[facility] [address] [place], [address] Bedside Glucoseon 03-23-2024 FINGERSTICK GLU 206 mg/dL High 74-106 [facility] Comment on above: Result Comment: ROBERTO GEMENT OF PATIENT CARE PER NURSING PROTOCOL Performed By: #### L 501.080 ####[facility] [address] [place], [address] FINGERSTICK GLU 162 mg/dL High 74-106 [facility] Comment on above: Result Comment: ROBERTO GEMENT OF PATIENT CARE PER NURSING PROTOCOL Performed By: #### L 501.080 ####[facility] [address] [place], [address] CBC W/Diff, Automatedon 11-0 Absolute Lymph 1.49 X10 3/uL Normal 0.83-4.51 [facility] Comment on above: Performed By: #### L 500.2500, L100.0100 ####[facility] [address] [place], [address] Absolute Neut 6.9 X10 3/uL Normal 2.0-7.7 [facility] Comment on above: Performed By: #### L 500.2500, L100.0100 ####[facility] [address] [place], [address] Basophils/100 WBC (Bld) 0.3 % Normal 0-1 [facility] Comment on above: Performed By: #### L 500.2500, L100.0100 ####[facility] [address] [place], [address] Eosinophils/100 WBC (Bld) 3.2 % Normal 0-5 [facility] Comment on above: Performed By: #### L 500.2500, L100.0100 ####[facility] [address] [place], [address] Erythrocyte distribution width (RBC) [Ratio] 13.4 % Normal 11.6-14.6 [facility] Comment on above: Performed By: #### L 500.2500, L100.0100 ####[facility] [address] [place], [address] Hematocrit (Bld) [Volume fraction] 25.8 % Low 40-54 [facility] Comment on above: Performed By: #### L 500.2500, L100.0100 ####[facility] [address] [place], [address] Hemoglobin (Bld) [Mass/Vol] 8.4 g/dL Low 13.0-16.5 [facility] Comment on above: Performed By: #### L 500.2500, L100.0100 ####[facility] [address] [place], [address] IG% 1.300 High 0.0-0.9 [facility] Comment on above: Result Comment: IG% - Immature Granulocytes (promyelocytes, myelocytes andmetamyelocytes) > 1% indicates that a LEFT SHIFT is Present. Performed By: #### L 500.2500, L100.0100 ####[facility] [address] [place], [address] Lymphocytes/100 WBC (Bld) 15.9 % Low 19-41 [facility] Comment on above: Performed By: #### L 500.2500, L100.0100 ####[facility] [address] [place], [address] MCH (RBC) [Entitic mass] 30.8 pg Normal 27.0-32.0 [facility] Comment on above: Performed By: #### L 500.2500, L100.0100 ####[facility] [address] [place], [address] MCHC (RBC) [Mass/Vol] 32.6 g/dL Normal 32-36 [facility] Comment on above: Performed By: #### L 500.2500, L100.0100 ####[facility] [address] [place], [address] MCV (RBC) [Entitic vol] 94.5 fL High 80-94 [facility] Comment on above: Performed By: #### L 500.2500, L100.0100 ####[facility] [address] [place], [address] Monocytes/100 WBC (Bld) 6.4 % Normal 0-10 [facility] Comment on above: Performed By: #### L 500.2500, L100.0100 ####[facility] [address] [place], [address] Neutrophils/100 WBC (Bld) 72.9 % High 47-70 [facility] Comment on above: Performed By: #### L 500.2500, L100.0100 ####[facility] [address] [place], [address] Nucleated RBC (Bld) [#/Vol] 0 10*3/uL Normal 0-5 [facility] Comment on above: Performed By: #### L 500.2500, L100.0100 ####[facility] [address] [place], [address] Platelet mean volume (Bld) [Entitic vol] 9.6 fL Normal 6.2-12.0 [facility] Comment on above: Performed By: #### L 500.2500, L100.0100 ####[facility] [address] [place], [address] Platelets (Bld) [#/Vol] 142 10*3/uL Low 150-450 [facility] Comment on above: Performed By: #### L 500.2500, L100.0100 ####[facility] [address] [place], [address] RBC (Bld) [#/Vol] 2.73 10*6/uL Low 4.6-6.2 [facility] Comment on above: Performed By: #### L 500.2500, L100.0100 ####[facility] [address] [place], [address] RDW SD 45.9 fl High 35.1-43.9 [facility] Comment on above: Performed By: #### L 500.2500, L100.0100 ####[facility] [address] [place], [address] WBC (Bld) [#/Vol] 9.4 10*3/uL Normal 4.4-11.0 [facility] Comment on above: Performed By: #### L 500.2500, L100.0100 ####[facility] [address] [place], [address] Basic Metabolic Profile (BMP )on 03-22-2024 BUN/CRE 25.4 RATIO High 10-20 [facility] Comment on above: Performed By: #### L 100.0100, L500.2500 ####[facility] [address] [place], [address] CA,Total 8.8 mg/dL Normal 8.5-10.1 [facility] Comment on above: Performed By: #### L 100.0100, L500.2500 ####[facility] [address] [place], [address] Chloride [Moles/Vol] 113 mmol/L High 98-107 [facility] Comment on above: Performed By: #### L 100.0100, L500.2500 ####[facility] [address] [place], [address] CO2 [Moles/Vol] 26.0 mmol/L Normal 21.0-32.0 [facility] Comment on above: Performed By: #### L 100.0100, L500.2500 ####[facility] [address] [place], [address] Creatinine [Mass/Vol] 2.05 mg/dL High 0.70-1.30 [facility] Comment on above: Result Comment: The validity of the calculated GFR GFRAA in patients over70 years has not been determined. Clinical correlation isessential. Performed By: #### L 100.0100, L500.2500 ####[facility] [address] [place], [address] ECRCL 32.23 ml/min Normal [facility] Comment on above: Performed By: #### L 100.0100, L500.2500 ####[facility] [address] [place], [address] EST GFR - AA 40 mL/min Low >60 [facility] Comment on above: Result Comment: Afri can Senegalese GFR Calc Performed By: #### L 100.0100, L500.2500 ####[facility] [address] [place], [address] GAP 4 Low 5-15 [facility] Comment on above: Performed By: #### L 100.0100, L500.2500 ####[facility] [address] [place], [address] GFR/1.73 sq M.predicted among non-blacks MDRD (S/P/Bld) [Vol rate/Area] 33 mL/min/{1.73_m2} Low >60 [facility] Comment on above: Result Comment: Non- GFR Calc Performed By: #### L 100.0100, L500.2500 ####[facility] [address] [place], [address] Glucose [Mass/Vol] 137 mg/dL High 74-106 [facility] Comment on above: Result Comment: Fast ing Glucose result greater than or equal to 126 mg/dLsuggests DIABETES MELLITUS per A.D.A. criteria. Performed By: #### L 100.0100, L500.2500 ####[facility] [address] [place], [address] Potassium [Moles/Vol] 4.2 mmol/L Normal 3.5-5.1 [facility] Comment on above: Performed By: #### L 100.0100, L500.2500 ####[facility] [address] [place], [address] Sodium [Moles/Vol] 143 mmol/L Normal 136-145 [facility] Comment on above: Performed By: #### L 100.0100, L500.2500 ####[facility] [address] [place], [address] Urea nitrogen [Mass/Vol] 52 mg/dL High 7-18 [facility] Comment on above: Performed By: #### L 100.0100, L500.2500 ####[facility] [address] [place], [address] Bedside Glucoseon 03-22-2024 FINGERSTICK GLU 180 mg/dL High 74-106 [facility] Comment on above: Result Comment: ROBERTO BAÑUELOS OF PATIENT CARE PER NURSING PROTOCOL Performed By: #### L 501.080 ####[facility] [address] [place], [address] CBC W/Diff, Automatedon 11-0 5-2023 Absolute Lymph 1.49 X10 3/uL Normal 0.83-4.51 [facility] Comment on above: Performed By: #### L 100.0100, L500.2500 ####[facility] [address] [place], [address] Absolute Neut 7.4 X10 3/uL Normal 2.0-7.7 [facility] Comment on above: Performed By: #### L 100.0100, L500.2500 ####[facility] [address] [place], [address] Basophils/100 WBC (Bld) 0.4 % Normal 0-1 [facility] Comment on above: Performed By: #### L 100.0100, L500.2500 ####[facility] [address] [place], [address] Eosinophils/100 WBC (Bld) 2.5 % Normal 0-5 [facility] Comment on above: Performed By: #### L 100.0100, L500.2500 ####[facility] [address] [place], [address] Erythrocyte distribution width (RBC) [Ratio] 13.4 % Normal 11.6-14.6 [facility] Comment on above: Performed By: #### L 100.0100, L500.2500 ####[facility] [address] [place], [address] Hematocrit (Bld) [Volume fraction] 26.6 % Low 40-54 [facility] Comment on above: Performed By: #### L 100.0100, L500.2500 ####[facility] [address] [place], [address] Hemoglobin (Bld) [Mass/Vol] 8.5 g/dL Low 13.0-16.5 [facility] Comment on above: Performed By: #### L 100.0100, L500.2500 ####[facility] [address] [place], [address] IG% 1.000 High 0.0-0.9 [facility] Comment on above: Result Comment: IG% - Immature Granulocytes (promyelocytes, myelocytes andmetamyelocytes) > 1% indicates that a LEFT SHIFT is Present. Performed By: #### L 100.0100, L500.2500 ####[facility] [address] [place], [address] Lymphocytes/100 WBC (Bld) 14.9 % Low 19-41 [facility] Comment on above: Performed By: #### L 100.0100, L500.2500 ####[facility] [address] [place], [address] MCH (RBC) [Entitic mass] 30.6 pg Normal 27.0-32.0 [facility] Comment on above: Performed By: #### L 100.0100, L500.2500 ####[facility] [address] [place], [address] MCHC (RBC) [Mass/Vol] 32.0 g/dL Normal 32-36 [facility] Comment on above: Performed By: #### L 100.0100, L500.2500 ####[facility] [address] [place], [address] MCV (RBC) [Entitic vol] 95.7 fL High 80-94 [facility] Comment on above: Performed By: #### L 100.0100, L500.2500 ####[facility] [address] [place], [address] Monocytes/100 WBC (Bld) 7.0 % Normal 0-10 [facility] Comment on above: Performed By: #### L 100.0100, L500.2500 ####[facility] [address] [place], [address] Neutrophils/100 WBC (Bld) 74.2 % High 47-70 [facility] Comment on above: Performed By: #### L 100.0100, L500.2500 ####[facility] [address] [place], [address] Nucleated RBC (Bld) [#/Vol] 0 10*3/uL Normal 0-5 [facility] Comment on above: Performed By: #### L 100.0100, L500.2500 ####[facility] [address] [place], [address] Platelet mean volume (Bld) [Entitic vol] 10.3 fL Normal 6.2-12.0 [facility] Comment on above: Performed By: #### L 100.0100, L500.2500 ####[facility] [address] [place], [address] Platelets (Bld) [#/Vol] 152 10*3/uL Normal 150-450 [facility] Comment on above: Performed By: #### L 100.0100, L500.2500 ####[facility] [address] [place], [address] RBC (Bld) [#/Vol] 2.78 10*6/uL Low 4.6-6.2 [facility] Comment on above: Performed By: #### L 100.0100, L500.2500 ####[facility] [address] [place], [address] RDW SD 46.7 fl High 35.1-43.9 [facility] Comment on above: Performed By: #### L 100.0100, L500.2500 ####[facility] [address] [place], [address] WBC (Bld) [#/Vol] 10.0 10*3/uL Normal 4.4-11.0 [facility] Comment on above: Performed By: #### L 100.0100, L500.2500 ####[facility] [address] 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, [address] CA,Total 8.6 mg/dL Normal 8.5-10.1 [facility] Comment on above: Performed By: #### L 100.0100, L500.2500 ####[facility] [address] [place], [address] Chloride [Moles/Vol] 111 mmol/L High 98-107 [facility] Comment on above: Performed By: #### L 100.0100, L500.2500 ####[facility] [address] [place], [address] CO2 [Moles/Vol] 26.0 mmol/L Normal 21.0-32.0 [facility] Comment on above: Performed By: #### L 100.0100, L500.2500 ####[facility] [address] [place], [address] Creatinine [Mass/Vol] 1.66 mg/dL High 0.70-1.30 [facility] Comment on above: Result Comment: The validity of the calculated GFR GFRAA in patients over70 years has not been determined. Clinical correlation isessential. Performed By: #### L 100.0100, L500.2500 ####[facility] [address] [place], [address] ECRCL 39.80 ml/min Normal [facility] Comment on above: Performed By: #### L 100.0100, L500.2500 ####[facility] [address] [place], [address] EST GFR - AA 51 mL/min Low >60 [facility] Comment on above: Result Comment: Afri can Senegalese GFR Calc Performed By: #### L 100.0100, L500.2500 ####[facility] [address] [place], [address] GAP 5 Normal 5-15 [facility] Comment on above: Performed By: #### L 100.0100, L500.2500 ####[facility] [address] [place], [address] GFR/1.73 sq M.predicted among non-blacks MDRD (S/P/Bld) [Vol rate/Area] 42 mL/min/{1.73_m2} Low >60 [facility] Comment on above: Result Comment: Non- GFR Calc Performed By: #### L 100.0100, L500.2500 ####[facility] [address] [place], [address] Glucose [Mass/Vol] 144 mg/dL High 74-106 [facility] Comment on above: Result Comment: Fast ing Glucose result greater than or equal to 126 mg/dLsuggests DIABETES MELLITUS per A.D.A. criteria. Performed By: #### L 100.0100, L500.2500 ####[facility] [address] [place], [address] Potassium [Moles/Vol] 4.1 mmol/L Normal 3.5-5.1 [facility] Comment on above: Performed By: #### L 100.0100, L500.2500 ####[facility] [address] [place], [address] Sodium [Moles/Vol] 142 mmol/L Normal 136-145 [facility] Comment on above: Performed By: #### L 100.0100, L500.2500 ####[facility] [address] [place], [address] Urea nitrogen [Mass/Vol] 54 mg/dL High 7-18 [facility] Comment on above: Performed By: #### L 100.0100, L500.2500 ####[facility] [address] [place], [address] Bedside Glucoseon 03-21-2024 FINGERSTICK GLU 197 mg/dL High 74-106 [facility] Comment on above: Result Comment: ROBERTO GEMENT OF PATIENT CARE PER NURSING PROTOCOL Performed By: #### L 501.080 ####[facility] [address] [place], [address] FINGERSTICK GLU 187 mg/dL High 74-106 [facility] Comment on above: Result Comment: ROBERTO GEMENT OF PATIENT CARE PER NURSING PROTOCOL Performed By: #### L 501.080 ####[facility] [address] [place], [address] CBC W/Diff, Automatedon 11-0 Absolute Lymph 1.40 X10 3/uL Normal 0.83-4.51 [facility] Comment on above: Performed By: #### L 100.0100, L500.2500 ####[facility] [address] [place], [address] Absolute Neut 7.3 X10 3/uL Normal 2.0-7.7 [facility] Comment on above: Performed By: #### L 100.0100, L500.2500 ####[facility] [address] [place], [address] Basophils/100 WBC (Bld) 0.3 % Normal 0-1 [facility] Comment on above: Performed By: #### L 100.0100, L500.2500 ####[facility] [address] [place], [address] Eosinophils/100 WBC (Bld) 3.3 % Normal 0-5 [facility] Comment on above: Performed By: #### L 100.0100, L500.2500 ####[facility] [address] [place], [address] Erythrocyte distribution width (RBC) [Ratio] 13.4 % Normal 11.6-14.6 [facility] Comment on above: Performed By: #### L 100.0100, L500.2500 ####[facility] [address] [place], [address] Hematocrit (Bld) [Volume fraction] 25.6 % Low 40-54 [facility] Comment on above: Performed By: #### L 100.0100, L500.2500 ####[facility] [address] [place], [address] Hemoglobin (Bld) [Mass/Vol] 8.3 g/dL Low 13.0-16.5 [facility] Comment on above: Performed By: #### L 100.0100, L500.2500 ####[facility] [address] [place], [address] IG% 0.800 Normal 0.0-0.9 [facility] Comment on above: Result Comment: IG% - Immature Granulocytes (promyelocytes, myelocytes andmetamyelocytes) > 1% indicates that a LEFT SHIFT is Present. Performed By: #### L 100.0100, L500.2500 ####[facility] [address] [place], [address] Lymphocytes/100 WBC (Bld) 14.2 % Low 19-41 [facility] Comment on above: Performed By: #### L 100.0100, L500.2500 ####[facility] [address] [place], [address] MCH (RBC) [Entitic mass] 30.9 pg Normal 27.0-32.0 [facility] Comment on above: Performed By: #### L 100.0100, L500.2500 ####[facility] [address] [place], [address] MCHC (RBC) [Mass/Vol] 32.4 g/dL Normal 32-36 [facility] Comment on above: Performed By: #### L 100.0100, L500.2500 ####[facility] [address] [place], [address] MCV (RBC) [Entitic vol] 95.2 fL High 80-94 [facility] Comment on above: Performed By: #### L 100.0100, L500.2500 ####[facility] [address] [place], [address] Monocytes/100 WBC (Bld) 7.1 % Normal 0-10 [facility] Comment on above: Performed By: #### L 100.0100, L500.2500 ####[facility] [address] [place], [address] Neutrophils/100 WBC (Bld) 74.3 % High 47-70 [facility] Comment on above: Performed By: #### L 100.0100, L500.2500 ####[facility] [address] [place], [address] Nucleated RBC (Bld) [#/Vol] 0 10*3/uL Normal 0-5 [facility] Comment on above: Performed By: #### L 100.0100, L500.2500 ####[facility] [address] [place], [address] Platelet mean volume (Bld) [Entitic vol] 10.5 fL Normal 6.2-12.0 [facility] Comment on above: Performed By: #### L 100.0100, L500.2500 ####[facility] [address] [place], [address] Platelets (Bld) [#/Vol] 143 10*3/uL Low 150-450 [facility] Comment on above: Performed By: #### L 100.0100, L500.2500 ####[facility] [address] [place], [address] RBC (Bld) [#/Vol] 2.69 10*6/uL Low 4.6-6.2 [facility] Comment on above: Performed By: #### L 100.0100, L500.2500 ####[facility] [address] [place], [address] RDW SD 46.4 fl High 35.1-43.9 [facility] Comment on above: Performed By: #### L 100.0100, L500.2500 ####[facility] [address] [place], [address] WBC (Bld) [#/Vol] 9.9 10*3/uL Normal 4.4-11.0 [facility] Comment on above: Performed By: #### L 100.0100, L500.2500 ####[facility] [address] [place], [address] Basic Metabolic Profile (BMP )on 03-20-2024 BUN/CRE 28.2 RATIO High 10-20 [facility] Comment on above: Performed By: #### L 500.2500, L100.0100 ####[facility] [address] [place], [address] CA,Total 9.2 mg/dL Normal 8.5-10.1 [facility] Comment on above: Performed By: #### L 500.2500, L100.0100 ####[facility] [address] [place], [address] Chloride [Moles/Vol] 114 mmol/L High 98-107 [facility] Comment on above: Performed By: #### L 500.2500, L100.0100 ####[facility] [address] [place], [address] CO2 [Moles/Vol] 30.0 mmol/L Normal 21.0-32.0 [facility] Comment on above: Performed By: #### L 500.2500, L100.0100 ####[facility] [address] [place], [address] Creatinine [Mass/Vol] 2.27 mg/dL High 0.70-1.30 [facility] Comment on above: Result Comment: The validity of the calculated GFR GFRAA in patients over70 years has not been determined. Clinical correlation isessential. Performed By: #### L 500.2500, L100.0100 ####[facility] [address] [place], [address] ECRCL 29.05 ml/min Normal [facility] Comment on above: Performed By: #### L 500.2500, L100.0100 ####[facility] [address] [place], [address] EST GFR - AA 36 mL/min Low >60 [facility] Comment on above: Result Comment: Afri can Senegalese GFR Calc Performed By: #### L 500.2500, L100.0100 ####[facility] [address] [place], [address] GAP 3 Low 5-15 [facility] Comment on above: Performed By: #### L 500.2500, L100.0100 ####[facility] [address] [place], [address] GFR/1.73 sq M.predicted among non-blacks MDRD (S/P/Bld) [Vol rate/Area] 29 mL/min/{1.73_m2} Low >60 [facility] Comment on above: Result Comment: Non- GFR Calc Performed By: #### L 500.2500, L100.0100 ####[facility] [address] [place], [address] Glucose [Mass/Vol] 141 mg/dL High 74-106 [facility] Comment on above: Result Comment: Fast ing Glucose result greater than or equal to 126 mg/dLsuggests DIABETES MELLITUS per A.D.A. criteria. Performed By: #### L 500.2500, L100.0100 ####[facility] [address] [place], [address] Potassium [Moles/Vol] 4.3 mmol/L Normal 3.5-5.1 [facility] Comment on above: Performed By: #### L 500.2500, L100.0100 ####[facility] [address] [place], [address] Sodium [Moles/Vol] 147 mmol/L High 136-145 [facility] Comment on above: Performed By: #### L 500.2500, L100.0100 ####[facility] [address] [place], [address] Urea nitrogen [Mass/Vol] 64 mg/dL High 7-18 [facility] Comment on above: Performed By: #### L 500.2500, L100.0100 ####[facility] [address] [place], [address] Bedside Glucoseon 03-20-2024 FINGERSTICK GLU 194 mg/dL High 74-106 [facility] Comment on above: Result Comment: ROBERTO KALLIEENT OF PATIENT CARE PER NURSING PROTOCOL Performed By: #### L 501.080 ####[facility] [address] [place], [address] CBC W/Diff, Automatedon 11-0 3-2024 Absolute Lymph 1.61 X10 3/uL Normal 0.83-4.51 [facility] Comment on above: Performed By: #### L 500.2500, L100.0100 ####[facility] [address] [place], [address] Absolute Neut 8.6 X10 3/uL High 2.0-7.7 [facility] Comment on above: Performed By: #### L 500.2500, L100.0100 ####[facility] [address] [place], [address] Basophils/100 WBC (Bld) 0.3 % Normal 0-1 [facility] Comment on above: Performed By: #### L 500.2500, L100.0100 ####[facility] [address] [place], [address] Eosinophils/100 WBC (Bld) 2.4 % Normal 0-5 [facility] Comment on above: Performed By: #### L 500.2500, L100.0100 ####[facility] [address] [place], [address] Erythrocyte distribution width (RBC) [Ratio] 13.6 % Normal 11.6-14.6 [facility] Comment on above: Performed By: #### L 500.2500, L100.0100 ####[facility] [address] [place], [address] Hematocrit (Bld) [Volume fraction] 27.4 % Low 40-54 [facility] Comment on above: Performed By: #### L 500.2500, L100.0100 ####[facility] [address] [place], [address] Hemoglobin (Bld) [Mass/Vol] 8.9 g/dL Low 13.0-16.5 [facility] Comment on above: Performed By: #### L 500.2500, L100.0100 ####[facility] [address] [place], [address] IG% 0.600 Normal 0.0-0.9 [facility] Comment on above: Result Comment: IG% - Immature Granulocytes (promyelocytes, myelocytes andmetamyelocytes) > 1% indicates that a LEFT SHIFT is Present. Performed By: #### L 500.2500, L100.0100 ####[facility] [address] [place], [address] Lymphocytes/100 WBC (Bld) 14.1 % Low 19-41 [facility] Comment on above: Performed By: #### L 500.2500, L100.0100 ####[facility] [address] [place], [address] MCH (RBC) [Entitic mass] 30.9 pg Normal 27.0-32.0 [facility] Comment on above: Performed By: #### L 500.2500, L100.0100 ####[facility] [address] [place], [address] MCHC (RBC) [Mass/Vol] 32.5 g/dL Normal 32-36 [facility] Comment on above: Performed By: #### L 500.2500, L100.0100 ####[facility] [address] [place], [address] MCV (RBC) [Entitic vol] 95.1 fL High 80-94 [facility] Comment on above: Performed By: #### L 500.2500, L100.0100 ####[facility] [address] [place], [address] Monocytes/100 WBC (Bld) 6.8 % Normal 0-10 [facility] Comment on above: Performed By: #### L 500.2500, L100.0100 ####[facility] [address] [place], [address] Neutrophils/100 WBC (Bld) 75.8 % High 47-70 [facility] Comment on above: Performed By: #### L 500.2500, L100.0100 ####[facility] [address] [place], [address] Nucleated RBC (Bld) [#/Vol] 0 10*3/uL Normal 0-5 [facility] Comment on above: Performed By: #### L 500.2500, L100.0100 ####[facility] [address] [place], [address] Platelet mean volume (Bld) [Entitic vol] 10.6 fL Normal 6.2-12.0 [facility] Comment on above: Performed By: #### L 500.2500, L100.0100 ####[facility] [address] [place], [address] Platelets (Bld) [#/Vol] 158 10*3/uL Normal 150-450 [facility] Comment on above: Performed By: #### L 500.2500, L100.0100 ####[facility] [address] [place], [address] RBC (Bld) [#/Vol] 2.88 10*6/uL Low 4.6-6.2 [facility] Comment on above: Performed By: #### L 500.2500, L100.0100 ####[facility] [address] [place], [address] RDW SD 47.2 fl High 35.1-43.9 [facility] Comment on above: Performed By: #### L 500.2500, L100.0100 ####[facility] [address] [place], [address] WBC (Bld) [#/Vol] 11.4 10*3/uL High 4.4-11.0 [facility] Comment on above: Performed By: #### L 500.2500, L100.0100 ####[facility] [address] [place], [address] 12 Lead EKGon 03-19-2024 12 Lead EKG Normal [facility] Basic Metabolic Profile (BMP )on 03-19-2024 BUN/CRE 29.1 RATIO High 10-20 [facility] Comment on above: Performed By: #### L 100.0100, L500.2500 ####[facility] [address] [place], [address] CA,Total 9.1 mg/dL Normal 8.5-10.1 [facility] Comment on above: Performed By: #### L 100.0100, L500.2500 ####[facility] [address] [place], [address] Chloride [Moles/Vol] 113 mmol/L High 98-107 [facility] Comment on above: Performed By: #### L 100.0100, L500.2500 ####[facility] [address] [place], [address] CO2 [Moles/Vol] 27.0 mmol/L Normal 21.0-32.0 [facility] Comment on above: Performed By: #### L 100.0100, L500.2500 ####[facility] [address] [place], [address] Creatinine [Mass/Vol] 2.61 mg/dL High 0.70-1.30 [facility] Comment on above: Result Comment: The validity of the calculated GFR GFRAA in patients over70 years has not been determined. Clinical correlation isessential. Performed By: #### L 100.0100, L500.2500 ####[facility] [address] [place], [address] ECRCL 24.89 ml/min Normal [facility] Comment on above: Performed By: #### L 100.0100, L500.2500 ####[facility] [address] [place], [address] EST GFR - AA 30 mL/min Low >60 [facility] Comment on above: Result Comment: Afri can Senegales[place] GFR Calc Performed By: #### L 100.0100, L500.2500 ####[facility] [address] [place], [address] GAP 6 Normal 5-15 [facility] Comment on above: Performed By: #### L 100.0100, L500.2500 ####[facility] [address] [place], [address] GFR/1.73 sq M.predicted among non-blacks MDRD (S/P/Bld) [Vol rate/Area] 25 mL/min/{1.73_m2} Low >60 [facility] Comment on above: Result Comment: Non- GFR Calc Performed By: #### L 100.0100, L500.2500 ####[facility] [address] [place], [address] Glucose [Mass/Vol] 187 mg/dL High 74-106 [facility] Comment on above: Result Comment: Fast ing Glucose result greater than or equal to 126 mg/dLsuggests DIABETES MELLITUS per A.D.A. criteria. Performed By: #### L 100.0100, L500.2500 ####[facility] [address] [place], [address] Potassium [Moles/Vol] 4.3 mmol/L Normal 3.5-5.1 [facility] Comment on above: Performed By: #### L 100.0100, L500.2500 ####[facility] [address] [place], [address] Sodium [Moles/Vol] 146 mmol/L High 136-145 [facility] Comment on above: Performed By: #### L 100.0100, L500.2500 ####[facility] [address] [place], [address] Urea nitrogen [Mass/Vol] 76 mg/dL High 7-18 [facility] Comment on above: Performed By: #### L 100.0100, L500.2500 ####[facility] [address] [place], [address] CBC W/Diff, Automatedon 11-0 2-4 Absolute Lymph 1.36 X10 3/uL Normal 0.83-4.51 [facility] Comment on above: Performed By: #### L 100.0100, L500.2500 ####[facility] [address] [place], [address] Absolute Neut 9.3 X10 3/uL High 2.0-7.7 [facility] Comment on above: Performed By: #### L 100.0100, L500.2500 ####[facility] [address] [place], [address] Basophils/100 WBC (Bld) 0.3 % Normal 0-1 [facility] Comment on above: Performed By: #### L 100.0100, L500.2500 ####[facility] [address] [place], [address] Eosinophils/100 WBC (Bld) 1.0 % Normal 0-5 [facility] Comment on above: Performed By: #### L 100.0100, L500.2500 ####[facility] [address] [place], [address] Erythrocyte distribution width (RBC) [Ratio] 13.6 % Normal 11.6-14.6 [facility] Comment on above: Performed By: #### L 100.0100, L500.2500 ####[facility] [address] [place], [address] Hematocrit (Bld) [Volume fraction] 28.5 % Low 40-54 [facility] Comment on above: Performed By: #### L 100.0100, L500.2500 ####[facility] [address] [place], [address] Hemoglobin (Bld) [Mass/Vol] 9.3 g/dL Low 13.0-16.5 [facility] Comment on above: Performed By: #### L 100.0100, L500.2500 ####[facility] [address] [place], [address] IG% 0.600 Normal 0.0-0.9 [facility] Comment on above: Result Comment: IG% - Immature Granulocytes (promyelocytes, myelocytes andmetamyelocytes) > 1% indicates that a LEFT SHIFT is Present. Performed By: #### L 100.0100, L500.2500 ####[facility] [address] [place], [address] Lymphocytes/100 WBC (Bld) 11.8 % Low 19-41 [facility] Comment on above: Performed By: #### L 100.0100, L500.2500 ####[facility] [address] [place], [address] MCH (RBC) [Entitic mass] 31.0 pg Normal 27.0-32.0 [facility] Comment on above: Performed By: #### L 100.0100, L500.2500 ####[facility] [address] [place], [address] MCHC (RBC) [Mass/Vol] 32.6 g/dL Normal 32-36 [facility] Comment on above: Performed By: #### L 100.0100, L500.2500 ####[facility] [address] [place], [address] MCV (RBC) [Entitic vol] 95.0 fL High 80-94 [facility] Comment on above: Performed By: #### L 100.0100, L500.2500 ####[facility] [address] [place], [address] Monocytes/100 WBC (Bld) 6.1 % Normal 0-10 [facility] Comment on above: Performed By: #### L 100.0100, L500.2500 ####[facility] [address] [place], [address] Neutrophils/100 WBC (Bld) 80.2 % High 47-70 [facility] Comment on above: Performed By: #### L 100.0100, L500.2500 ####[facility] [address] [place], [address] Nucleated RBC (Bld) [#/Vol] 0 10*3/uL Normal 0-5 [facility] Comment on above: Performed By: #### L 100.0100, L500.2500 ####[facility] [address] [place], [address] Platelet mean volume (Bld) [Entitic vol] 11.1 fL Normal 6.2-12.0 [facility] Comment on above: Performed By: #### L 100.0100, L500.2500 ####[facility] [address] [place], [address] Platelets (Bld) [#/Vol] 150 10*3/uL Normal 150-450 [facility] Comment on above: Performed By: #### L 100.0100, L500.2500 ####[facility] [address] [place], [address] RBC (Bld) [#/Vol] 3.00 10*6/uL Low 4.6-6.2 [facility] Comment on above: Performed By: #### L 100.0100, L500.2500 ####[facility] [address] [place], [address] RDW SD 47.1 fl High 35.1-43.9 [facility] Comment on above: Performed By: #### L 100.0100, L500.2500 ####[facility] [address] [place], [address] WBC (Bld) [#/Vol] 11.6 10*3/uL High 4.4-11.0 [facility] Comment on above: Performed By: #### L 100.0100, L500.2500 ####[facility] [address] [place], [address] Bedside Glucoseon 03-18-2024 FINGERSTICK GLU 180 mg/dL High 74-106 [facility] Comment on above: Result Comment: ROBERTO BAÑUELOS OF PATIENT CARE PER NURSING PROTOCOL Performed By: #### L 501.080 ####[facility] [address] [place], [address] Stool gastrointestinal hemog lobin detection by immunologic methodOrdered By: Kain Bhakta on 08-14-2023 Lower GI hemoglobin IA Ql (Stl) [facility] Absolute lymphocyte countOrd ered By: Kain Bhakta on 08-12-2023 Lymphocytes Auto (Unsp spec) [#/Vol] 1.74 10*3/uL 0.83-4.51 [facility] Automated lymphocyte count a s percentage of total leukocytesOrdered By: Kain Bhakta on 08-12-2023 Lymphocytes/100 WBC Auto (Unsp spec) 24.7 % 19-41 [facility] Basophil percentageOrdered B y: Kain Bhakta on 08-12-2023 Basophils/100 WBC (Bld) 0.6 % 0-1 [facility] Bilirubin [Mass/Vol] 0.40 mg/dL 0.20-1.00 [facility] Comment on above: For patients on eltr ombopag therapy, use of Dimension [place] TBIL is not recommended. Chloride [Moles/Vol] 101 mmol/L 98-107 [facility] Eosinophils/100 WBC (Bld) 2.7 % 0-5 [facility] Glucose [Mass/Vol] 160 mg/dL 74-106 [facility] Comment on above: Fasting Glucose resu lt greater than or equal to 126 mg/dL suggests DIABETES MELLITUS per A.D.A. criteria. Hemoglobin (Bld) [Mass/Vol] 9.2 g/dL 13.0-16.5 [facility] Monocytes/100 WBC (Bld) 7.2 % 0-10 [facility] Neutrophils (Bld) [#/Vol] 4.6 10*3/uL 2.0-7.7 [facility] Neutrophils/100 WBC (Bld) 64.5 % 47-70 [facility] Potassium [Moles/Vol] 4.1 mmol/L 3.5-5.1 [facility] Protein [Mass/Vol] 7.2 g/dL 6.4-8.2 [facility] Sodium [Moles/Vol] 138 mmol/L 136-145 [facility] WBC (Bld) [#/Vol] 7.1 10*3/uL 4.4-11.0 [facility] Determination of erythrocyte mean corpuscular volume (MCV)Ordered By: Kain Bhakta on 08-12-2023 MCV (RBC) [Entitic vol] 92.5 fL 80-94 [facility] Erythrocyte distribution wid th ratioOrdered By: Kain Bhakta on 08-12-2023 Erythrocyte distribution width (RBC) [Ratio] 13.1 % 11.6-14.6 [facility] Erythrocyte distribution wid th standard deviationOrdered By: Kain Bhakta on 08-12-2023 Erythrocyte distribution width (RBC) [Entitic vol] 44.2 fL 35.1-43.9 [facility] Hematocrit Auto (Bld) [Volum e fraction]Ordered By: Kain Bhakta on 08-12-2023 Hematocrit (Bld) [Volume fraction] 28.4 % 40-54 [facility] Immature granulocytes/100 WB C Auto (Bld)Ordered By: Kain Bhakta on 08-12-2023 Immature granulocytes/100 WBC (Bld) 0.300 % 0.0-0.9 [facility] Comment on above: IG% - Immature Granu locytes (promyelocytes, myelocytes and metamyelocytes) > 1% indicates that a LEFT SHIFT is Present. Laboratory - Chemistry and C hemistry - challengeOrdered By: Kain Bhakta on 08-12-2023 Albumin/Globulin [Mass ratio] 0.9 {ratio} 0.9-2.4 [facility] ALP [Catalytic activity/Vol] 78 U/L 45-117 [facility] ALT [Catalytic activity/Vol] 19 U/L 16-61 [facility] CO2 [Moles/Vol] 29.0 mmol/L 21.0-32.0 [facility] Globulin (S) [Mass/Vol] 3.7 g/dL 2.2-4.2 [facility] Urea nitrogen/Creatinine [Mass ratio] 32.9 mg/mg 10-20 [facility] Laboratory - Hematology and Cell countsOrdered By: Kain Bhakta on 08-12-2023 MCH (RBC) [Entitic mass] 30.0 pg 27.0-32.0 [facility] MCHC (RBC) [Mass/Vol] 32.4 g/dL 32-36 [facility] Nucleated RBC/100 WBC (Bld) [Ratio] 0 % 0-5 [facility] Platelet mean volume (Bld) [Entitic vol] 10.6 fL 6.2-12.0 [facility] Platelets (Bld) [#/Vol] 149 10*3/uL 150-450 [facility] No Panel InformationOrdered By: Kain Bhakta on 08-12-2023 Estimated GFR (MDRD) Amer 31 mL/min >60 [facility] Comment on above: GFR Calc Estimated GFR (MDRD) Non-Af Amer 26 mL/min >60 [facility] Comment on above: Non- GFR Calc Vitamin D 25-Hydroxy 75.9 ng/mL [facility] Comment on above: Vitamin D 25(OH) Sta tus Range Deficiency <20 ng/mL (50nmol/L) Insufficiency 20 - 30 ng/mL (50 - 75 nmol/L) Sufficiency 30 - 100 ng/mL (75 - 250 nmol/L) Toxicity >100 ng/mL (>250 nmol/L) RBC Auto (Bld) [#/Vol]Ordere d By: Kain Bhakta on 08-12-2023 RBC (Bld) [#/Vol] 3.07 10*6/uL 4.6-6.2 [facility] Serum or plasma calcium keven urement (mass/volume)Ordered By: Kain Bhakta on 08-12-2023 Calcium [Mass/Vol] 9.0 mg/dL 8.5-10.1 [facility] Serum or plasma creatinine m easurement (mass/volume)Ordered By: Kain Bhakta on 08-12-2023 Creatinine [Mass/Vol] 2.55 mg/dL 0.70-1.30 [facility] Comment on above: The validity of the calculated GFR & GFRAA in patients over 70 years has not been determined. Clinical correlation is essential. Serum or plasma thyroid stim ulating hormone (TSH) measurement (units/volume)Ordered By: Kain Bhakta on 08-12-2023 TSH Qn 2.24 uIU/mL 0.358-3.74 [facility] Serum or plasma urea nitroge n measurement (mass/volume)Ordered By: Kain Bhakta on 08-12-2023 Urea nitrogen [Mass/Vol] 84 mg/dL 7-18 [facility] Thin prep Papanicolaou smear with manual screeningOrdered By: Kain Bhakta on 08-12-2023 Thin prep Papanicolaou smear with manual screening 3.5 g/dL 3.2-5.0 [facility] Thin prep Papanicolaou smear with manual screening 21 U/L 15-37 [facility] Thin prep Papanicolaou smear with manual screening 8 5-15 [facility] Absolute lymphocyte countOrd ered By: Kain Bhakta on 05-20-2023 Lymphocytes Auto (Unsp spec) [#/Vol] 1.87 10*3/uL 0.83-4.51 [facility] Basophil percentageOrdered B y: Kain Bhakta on 05-20-2023 Basophils/100 WBC (Bld) 0.5 % 0-1 [facility] Bilirubin [Mass/Vol] 0.40 mg/dL 0.20-1.00 [facility] Comment on above: For patients on eltr ombopag therapy, use of Dimension [place] TBIL is not recommended. Chloride [Moles/Vol] 103 mmol/L 98-107 [facility] Eosinophils/100 WBC (Bld) 3.2 % 0-5 [facility] Glucose [Mass/Vol] 128 mg/dL 74-106 [facility] Comment on above: Fasting Glucose resu lt greater than or equal to 126 mg/dL suggests DIABETES MELLITUS per A.D.A. criteria. Neutrophils (Bld) [#/Vol] 4.7 10*3/uL 2.0-7.7 [facility] Neutrophils/100 WBC (Bld) 62.7 % 47-70 [facility] Potassium [Moles/Vol] 4.4 mmol/L 3.5-5.1 [facility] Protein [Mass/Vol] 7.5 g/dL 6.4-8.2 [facility] Sodium [Moles/Vol] 138 mmol/L 136-145 [facility] WBC (Bld) [#/Vol] 7.5 10*3/uL 4.4-11.0 [facility] Blood erythrocytes count (nu mber/volume)Ordered By: Kain Bhakta on 05-20-2023 RBC (Bld) [#/Vol] 3.20 10*6/uL 4.6-6.2 [facility] Blood hemoglobin measurement (mass/volume)Ordered By: Kain Bhakta on 05-20-2023 Hemoglobin (Bld) [Mass/Vol] 9.8 g/dL 13.0-16.5 [facility] Blood lymphocytes/100 leukoc ytesOrdered By: Kain Bhakta on 05-20-2023 Lymphocytes/100 WBC (Bld) 25.0 % 19-41 [facility] Blood monocytes/100 leukocyt esOrdered By: Kain Bhakta on 05-20-2023 Monocytes/100 WBC (Bld) 8.3 % 0-10 [facility] Blood platelet mean volumeOr dered By: Kain Bhakta on 05-20-2023 Platelet mean volume (Bld) [Entitic vol] 10.4 fL 6.2-12.0 [facility] Determination of erythrocyte mean corpuscular volume (MCV)Ordered By: Kain Bhakta on 05-20-2023 MCV (RBC) [Entitic vol] 93.1 fL 80-94 [facility] Hematocrit Auto (Bld) [Volum e fraction]Ordered By: Kain Bhakta on 05-20-2023 Hematocrit (Bld) [Volume fraction] 29.8 % 40-54 [facility] Laboratory - Chemistry and C hemistry - challengeOrdered By: Kain Bhakta on 05-20-2023 ALP [Catalytic activity/Vol] 80 U/L 45-117 [facility] ALT [Catalytic activity/Vol] 19 U/L 16-61 [facility] CO2 [Moles/Vol] 31.0 mmol/L 21.0-32.0 [facility] Globulin (S) [Mass/Vol] 4.1 g/dL 2.2-4.2 [facility] Urea nitrogen/Creatinine [Mass ratio] 30.9 mg/mg 10-20 [facility] Laboratory - Hematology and Cell countsOrdered By: Kain Bhakta on 05-20-2023 Erythrocyte distribution width (RBC) [Entitic vol] 44.8 fL 35.1-43.9 [facility] Erythrocyte distribution width (RBC) [Ratio] 13.2 % 11.6-14.6 [facility] Immature granulocytes/100 WBC (Bld) 0.300 % 0.0-0.9 [facility] Comment on above: IG% - Immature Granu locytes (promyelocytes, myelocytes and metamyelocytes) > 1% indicates that a LEFT SHIFT is Present. MCH (RBC) [Entitic mass] 30.6 pg 27.0-32.0 [facility] Nucleated RBC/100 WBC (Bld) [Ratio] 0 % 0-5 [facility] MCHC Auto (RBC) [Mass/Vol]Or dered By: Kain Bhakta on 05-20-2023 MCHC (RBC) [Mass/Vol] 32.9 g/dL 32-36 [facility] No Panel InformationOrdered By: Kain Bhakta on 05-20-2023 Estimated GFR (MDRD) Amer 40 mL/min >60 [facility] Comment on above: GFR Calc Estimated GFR (MDRD) Non-Af Amer 33 mL/min >60 [facility] Comment on above: Non- GFR Calc Thyroid Stimulating Hormone (TSH) 3.45 uIU/mL 0.358-3.74 [facility] Vitamin D 25-Hydroxy 85.7 ng/mL [facility] Comment on above: Vitamin D 25(OH) Sta tus Range Deficiency <20 ng/mL (50nmol/L) Insufficiency 20 - 30 ng/mL (50 - 75 nmol/L) Sufficiency 30 - 100 ng/mL (75 - 250 nmol/L) Toxicity >100 ng/mL (>250 nmol/L) Platelets bldOrdered By: Kain Bhakta on 05-20-2023 Platelets (Bld) [#/Vol] 169 10*3/uL 150-450 [facility] Serum or plasma albumin keven urement (mass/volume)Ordered By: Kain Bhakta on 05-20-2023 Albumin [Mass/Vol] 3.4 g/dL 3.2-5.0 [facility] Serum or plasma albumin/glob ulin mass ratioOrdered By: Kain Bhakta on 05-20-2023 Albumin/Globulin [Mass ratio] 0.8 {ratio} 0.9-2.4 [facility] Serum or plasma calcium keven urement (mass/volume)Ordered By: Kain Bhakta on 05-20-2023 Calcium [Mass/Vol] 8.9 mg/dL 8.5-10.1 [facility] Serum or plasma creatinine m easurement (mass/volume)Ordered By: Kain Bhakta on 05-20-2023 Creatinine [Mass/Vol] 2.07 mg/dL 0.70-1.30 [facility] Comment on above: The validity of the calculated GFR & GFRAA in patients over 70 years has not been determined. Clinical correlation is essential. Serum or plasma urea nitroge n measurement (mass/volume)Ordered By: Kain Bhakta on 05-20-2023 Urea nitrogen [Mass/Vol] 64 mg/dL 7-18 [facility] Thin prep Papanicolaou smear with manual screeningOrdered By: Kain Bhakta on 05-20-2023 Thin prep Papanicolaou smear with manual screening 19 U/L 15-37 [facility] Thin prep Papanicolaou smear with manual screening 4 5-15 [facility] Absolute lymphocyte countOrd ered By: Kain Bhakta on 02-18-2023 Lymphocytes Auto (Unsp spec) [#/Vol] 1.70 10*3/uL 0.83-4.51 [facility] Basophil percentageOrdered B y: Kain Bhakta on 02-18-2023 Basophils/100 WBC (Bld) 0.3 % 0-1 [facility] Bilirubin [Mass/Vol] 0.30 mg/dL 0.20-1.00 [facility] Comment on above: For patients on eltr ombopag therapy, use of Dimension Taylor TBIL is not recommended. Chloride [Moles/Vol] 104 mmol/L 98-107 [facility] Eosinophils/100 WBC (Bld) 2.2 % 0-5 [facility] Glucose [Mass/Vol] 241 mg/dL 74-106 [facility] Comment on above: Glucose result great er than or equal to 200 mg/dLsuggests DIABETES MELLITUS per A.D.A. criteria. Neutrophils (Bld) [#/Vol] 4.1 10*3/uL 2.0-7.7 [facility] Neutrophils/100 WBC (Bld) 63.7 % 47-70 [facility] Potassium [Moles/Vol] 3.9 mmol/L 3.5-5.1 [facility] Protein [Mass/Vol] 7.2 g/dL 6.4-8.2 [facility] Sodium [Moles/Vol] 139 mmol/L 136-145 [facility] WBC (Bld) [#/Vol] 6.4 10*3/uL 4.4-11.0 [facility] Blood erythrocytes count (nu mber/volume)Ordered By: Kain Bhakta on 02-18-2023 RBC (Bld) [#/Vol] 3.36 10*6/uL 4.6-6.2 [facility] Blood hemoglobin measurement (mass/volume)Ordered By: Kain Bhakta on 02-18-2023 Hemoglobin (Bld) [Mass/Vol] 10.0 g/dL 13.0-16.5 [facility] Blood lymphocytes/100 leukoc ytesOrdered By: Kain Bhakta on 02-18-2023 Lymphocytes/100 WBC (Bld) 26.6 % 19-41 [facility] Blood monocytes/100 leukocyt esOrdered By: Kain Bhakta on 02-18-2023 Monocytes/100 WBC (Bld) 6.9 % 0-10 [facility] Blood platelet mean volumeOr dered By: Kain Bhakta on 02-18-2023 Platelet mean volume (Bld) [Entitic vol] 10.7 fL 6.2-12.0 [facility] Determination of erythrocyte mean corpuscular volume (MCV)Ordered By: Kain Bhakta on 02-18-2023 MCV (RBC) [Entitic vol] 92.6 fL 80-94 [facility] Hematocrit Auto (Bld) [Volum e fraction]Ordered By: Kain Bhakta on 02-18-2023 Hematocrit (Bld) [Volume fraction] 31.1 % 40-54 [facility] Laboratory - Chemistry and C hemistry - challengeOrdered By: [facility] Yony on 02-18-2023 ALP [Catalytic activity/Vol] 78 U/L 45-117 [facility] ALT [Catalytic activity/Vol] 19 U/L 16-61 [facility] CO2 [Moles/Vol] 29.0 mmol/L 21.0-32.0 [facility] Globulin (S) [Mass/Vol] 3.8 g/dL 2.2-4.2 [facility] Urea nitrogen/Creatinine [Mass ratio] 23.5 mg/mg 10-20 [facility] Laboratory - Hematology and Cell countsOrdered By: Kain Bhakta 02-18-2023 Erythrocyte distribution width (RBC) [Entitic vol] 44.1 fL 35.1-43.9 [facility] Erythrocyte distribution width (RBC) [Ratio] 13.0 % 11.6-14.6 [facility] Immature granulocytes/100 WBC (Bld) 0.300 % 0.0-0.9 [facility] Comment on above: IG% - Immature Granu locytes (promyelocytes, myelocytes and metamyelocytes) > 1% indicates that a LEFT SHIFT is Present. MCH (RBC) [Entitic mass] 29.8 pg 27.0-32.0 [facility] Nucleated RBC/100 WBC (Bld) [Ratio] 0 % 0-5 [facility] MCHC Auto (RBC) [Mass/Vol]Or dered By: Kain Bhakta on 02-18-2023 MCHC (RBC) [Mass/Vol] 32.2 g/dL 32-36 [facility] No Panel InformationOrdered By: Kain Bhakta on 02-18-2023 Estimated GFR (MDRD) Amer 38 mL/min >60 [facility] Comment on above: GFR Calc Estimated GFR (MDRD) Non-Af Amer 31 mL/min >60 [facility] Comment on above: Non- GFR Calc Thyroid Stimulating Hormone (TSH) 2.04 uIU/mL 0.358-3.74 [facility] Vitamin D 25-Hydroxy 103.7 ng/mL [facility] Comment on above: Vitamin D 25(OH) Sta tus Range Deficiency <20 ng/mL (50nmol/L) Insufficiency 20 - 30 ng/mL (50 - 75 nmol/L) Sufficiency 30 - 100 ng/mL (75 - 250 nmol/L) Toxicity >100 ng/mL (>250 nmol/L)Evidence suggests that patients undergoing fluorescein dye angiography can retain small amounts of fluorescein in the body for up to 48 to 72 hours post-treatment. In the cases of patients with renal insufficiency, retention could be much longer. Samples containing fluorescein can produce falsely elevated values when tested with the [employer] Vitamin D assay. With fluorescein interference, observed Vitamin D values can be as high as >150 ng/mL (>375 nmol/L). Samples should be resubmitted post fluorescein clearance to ensure there is no interference with Vitamin D test results. Platelets bldOrdered By: Kain Bhakta on 02-18-2023 Platelets (Bld) [#/Vol] 152 10*3/uL 150-450 [facility] Serum or plasma albumin keven urement (mass/volume)Ordered By: Kain Bhakta on 02-18-2023 Albumin [Mass/Vol] 3.4 g/dL 3.2-5.0 [facility] Serum or plasma albumin/glob ulin mass ratioOrdered By: Kain Bhakta on 02-18-2023 Albumin/Globulin [Mass ratio] 0.9 {ratio} 0.9-2.4 [facility] Serum or plasma calcium keven urement (mass/volume)Ordered By: Kain Bhakta on 02-18-2023 Calcium [Mass/Vol] 8.4 mg/dL 8.5-10.1 [facility] Serum or plasma creatinine m easurement (mass/volume)Ordered By: Kain Bhakta on 02-18-2023 Creatinine [Mass/Vol] 2.17 mg/dL 0.70-1.30 [facility] Comment on above: The validity of the calculated GFR & GFRAA in patients over 70 years has not been determined. Clinical correlation is essential. Serum or plasma urea nitroge n measurement (mass/volume)Ordered By: Kain Bhakta on 02-18-2023 Urea nitrogen [Mass/Vol] 51 mg/dL 7-18 [facility] Thin prep Papanicolaou smear with manual screeningOrdered By: Kain Bhakta on 02-18-2023 Thin prep Papanicolaou smear with manual screening 17 U/L 15-37 [facility] Thin prep Papanicolaou smear with manual screening 6 5-15 [facility] Absolute lymphocyte countOrd ered By: Dr. Cottrell on 08-06-2022 Lymphocytes Auto (Unsp spec) [#/Vol] 1.98 10*3/uL 0.83-4.51 [facility] Basophil percentageOrdered B y: Dr. Cottrell on 08-06-2022 Basophils/100 WBC (Bld) 0.5 % 0-1 [facility] Bilirubin [Mass/Vol] 0.40 mg/dL 0.20-1.00 [facility] Comment on above: For patients on eltr ombopag therapy, use of Dimension Taylor TBIL is not recommended. Chloride [Moles/Vol] 103 mmol/L 98-107 [facility] Eosinophils/100 WBC (Bld) 3.4 % 0-5 [facility] Glucose [Mass/Vol] 162 mg/dL 74-106 [facility] Comment on above: Fasting Glucose resu lt greater than or equal to 126 mg/dL suggests DIABETES MELLITUS per A.D.A. criteria. Neutrophils (Bld) [#/Vol] 5.6 10*3/uL 2.0-7.7 [facility] Neutrophils/100 WBC (Bld) 65.3 % 47-70 [facility] Potassium [Moles/Vol] 4.4 mmol/L 3.5-5.1 [facility] Protein [Mass/Vol] 8.0 g/dL 6.4-8.2 [facility] Sodium [Moles/Vol] 137 mmol/L 136-145 [facility] WBC (Bld) [#/Vol] 8.6 10*3/uL 4.4-11.0 [facility] Blood erythrocytes count (nu mber/volume)Ordered By: Dr. Cottrell on 08-06-2022 RBC (Bld) [#/Vol] 3.73 10*6/uL 4.6-6.2 [facility] Blood hemoglobin measurement (mass/volume)Ordered By: Dr. Cottrell on 08-06-2022 Hemoglobin (Bld) [Mass/Vol] 11.3 g/dL 13.0-16.5 [facility] Blood lymphocytes/100 leukoc ytesOrdered By: Dr. Cottrell on 08-06-2022 Lymphocytes/100 WBC (Bld) 22.9 % 19-41 [facility] Blood monocytes/100 leukocyt esOrdered By: Dr. Cottrell on 08-06-2022 Monocytes/100 WBC (Bld) 7.6 % 0-10 [facility] Blood platelet mean volumeOr dered By: Dr. Cottrell on 08-06-2022 Platelet mean volume (Bld) [Entitic vol] 10.8 fL 6.2-12.0 [facility] Determination of erythrocyte mean corpuscular volume (MCV)Ordered By: Dr. Cottrell on 08-06-2022 MCV (RBC) [Entitic vol] 90.6 fL 80-94 [facility] Hematocrit Auto (Bld) [Volum e fraction]Ordered By: Dr. Cottrell on 08-06-2022 Hematocrit (Bld) [Volume fraction] 33.8 % 40-54 [facility] Laboratory - Chemistry and C hemistry - challengeOrdered By: Dr. Cottrell on 08-06-2022 ALP [Catalytic activity/Vol] 73 U/L 45-117 [facility] ALT [Catalytic activity/Vol] 19 U/L 16-61 [facility] CO2 [Moles/Vol] 27.0 mmol/L 21.0-32.0 [facility] Globulin (S) [Mass/Vol] 4.3 g/dL 2.2-4.2 [facility] Urea nitrogen/Creatinine [Mass ratio] 28.5 mg/mg 10-20 [facility] Laboratory - Hematology and Cell countsOrdered By: Dr. Cottrell on 08-06-2022 Erythrocyte distribution width (RBC) [Entitic vol] 42.5 fL 35.1-43.9 [facility] Erythrocyte distribution width (RBC) [Ratio] 13.0 % 11.6-14.6 [facility] Immature granulocytes/100 WBC (Bld) 0.300 % 0.0-0.9 [facility] Comment on above: IG% - Immature Granu locytes (promyelocytes, myelocytes and metamyelocytes) > 1% indicates that a LEFT SHIFT is Present. MCH (RBC) [Entitic mass] 30.3 pg 27.0-32.0 [facility] Nucleated RBC/100 WBC (Bld) [Ratio] 0 % 0-5 [facility] MCHC Auto (RBC) [Mass/Vol]Or dered By: Dr. Cottrell on 08-06-2022 MCHC (RBC) [Mass/Vol] 33.4 g/dL 32-36 [facility] No Panel InformationOrdered By: Dr. Cottrell on 08-06-2022 Estimated GFR (MDRD) Amer 47 mL/min >60 [facility] Comment on above: GFR Calc Estimated GFR (MDRD) Non-Af Amer 39 mL/min >60 [facility] Comment on above: Non- GFR Calc Thyroid Stimulating Hormone (TSH) 3.59 uIU/mL 0.358-3.74 [facility] Urine Microalbumin/Creatinine Ratio TNP [facility] Comment on above: Test not performed Vitamin D 25-Hydroxy 98.5 ng/mL [facility] Comment on above: Vitamin D 25(OH) Sta tus Range Deficiency <20 ng/mL (50nmol/L) Insufficiency 20 - 30 ng/mL (50 - 75 nmol/L) Sufficiency 30 - 100 ng/mL (75 - 250 nmol/L) Toxicity >100 ng/mL (>250 nmol/L) Platelets bldOrdered By: Dr. Cottrell on 08-06-2022 Platelets (Bld) [#/Vol] 177 10*3/uL 150-450 [facility] Serum or plasma albumin keven urement (mass/volume)Ordered By: Dr. Cottrell on 08-06-2022 Albumin [Mass/Vol] 3.7 g/dL 3.2-5.0 [facility] Serum or plasma albumin/glob ulin mass ratioOrdered By: Dr. Cottrell on 08-06-2022 Albumin/Globulin [Mass ratio] 0.9 {ratio} 0.9-2.4 [facility] Serum or plasma calcium keven urement (mass/volume)Ordered By: Dr. Cottrell on 08-06-2022 Calcium [Mass/Vol] 9.4 mg/dL 8.5-10.1 [facility] Serum or plasma creatinine m easurement (mass/volume)Ordered By: Dr. Cottrell on 08-06-2022 Creatinine [Mass/Vol] 1.79 mg/dL 0.70-1.30 [facility] Comment on above: The validity of the calculated GFR & GFRAA in patients over 70 years has not been determined. Clinical correlation is essential. Serum or plasma urea nitroge n measurement (mass/volume)Ordered By: Dr. Cottrell on 08-06-2022 Urea nitrogen [Mass/Vol] 51 mg/dL 7-18 [facility] Thin prep Papanicolaou smear with manual screeningOrdered By: Dr. Cottrell on 08-06-2022 Thin prep Papanicolaou smear with manual screening 21 U/L 15-37 [facility] Thin prep Papanicolaou smear with manual screening 7 5-15 [facility] Thin prep Papanicolaou smear with manual screening < 5.0 mg/L NO RANGE EST. [facility] Urine creatinine measurement (mass/volume)Ordered By: Dr. Cottrell on 08-06-2022 Creatinine (U) [Mass/Vol] 29.60 mg/dL NO RANGE EST. [facility] Basophil percentageOrdered B y: Dr. Bhakta on 06-20-2022 Chloride [Moles/Vol] 106 mmol/L 98-107 [facility] Glucose [Mass/Vol] 207 mg/dL 74-106 [facility] Comment on above: Glucose result great er than or equal to 200 mg/dLsuggests DIABETES MELLITUS per A.D.A. criteria. Potassium [Moles/Vol] 4.4 mmol/L 3.5-5.1 [facility] Sodium [Moles/Vol] 141 mmol/L 136-145 [facility] Laboratory - Chemistry and C hemistry - challengeOrdered By: Dr. Bhakta on 06-20-2022 CO2 [Moles/Vol] 27.0 mmol/L 21.0-32.0 [facility] Urea nitrogen/Creatinine [Mass ratio] 13.6 mg/mg 10-20 [facility] No Panel InformationOrdered By: Dr. Bhakta on 06-20-2022 Estimated GFR (MDRD) Amer 67 mL/min >60 [facility] Comment on above: GFR Calc Estimated GFR (MDRD) Non-Af Amer 55 mL/min >60 [facility] Comment on above: Non- GFR Calc Serum or plasma calcium keven urement (mass/volume)Ordered By: Dr. Bhakta on 06-20-2022 Calcium [Mass/Vol] 9.2 mg/dL 8.5-10.1 [facility] Serum or plasma creatinine m easurement (mass/volume)Ordered By: Dr. Bhakta on 06-20-2022 Creatinine [Mass/Vol] 1.32 mg/dL 0.70-1.30 [facility] Comment on above: The validity of the calculated GFR & GFRAA in patients over 70 years has not been determined. Clinical correlation is essential. Serum or plasma urea nitroge n measurement (mass/volume)Ordered By: Dr. Bhakta on 06-20-2022 Urea nitrogen [Mass/Vol] 18 mg/dL 7-18 [facility] Thin prep Papanicolaou smear with manual screeningOrdered By: Dr. Bhakta on 06-20-2022 Thin prep Papanicolaou smear with manual screening 8 5-15 [facility] Basophil percentageOrdered B y: Kain Bhakta on 06-13-2022 Chloride [Moles/Vol] 106 mmol/L 98-107 [facility] Glucose [Mass/Vol] 221 mg/dL 74-106 [facility] Comment on above: Glucose result great er than or equal to 200 mg/dLsuggests DIABETES MELLITUS per A.D.A. criteria. Potassium [Moles/Vol] 3.8 mmol/L 3.5-5.1 [facility] Sodium [Moles/Vol] 142 mmol/L 136-145 [facility] Laboratory - Chemistry and C hemistry - challengeOrdered By: Kain Bhakta on 06-13-2022 CO2 [Moles/Vol] 29.0 mmol/L 21.0-32.0 [facility] Urea nitrogen/Creatinine [Mass ratio] 16.2 mg/mg 10-20 [facility] No Panel InformationOrdered By: Kain Bhakta on 06-13-2022 Estimated GFR (MDRD) Amer 51 mL/min >60 [facility] Comment on above: GFR Calc Estimated GFR (MDRD) Non-Af Amer 42 mL/min >60 [facility] Comment on above: Non- GFR Calc Serum or plasma calcium keven urement (mass/volume)Ordered By: Kain Bhakta on 06-13-2022 Calcium [Mass/Vol] 8.5 mg/dL 8.5-10.1 [facility] Serum or plasma creatinine m easurement (mass/volume)Ordered By: Kain Bhakta on 06-13-2022 Creatinine [Mass/Vol] 1.67 mg/dL 0.70-1.30 [facility] Comment on above: The validity of the calculated GFR & GFRAA in patients over 70 years has not been determined. Clinical correlation is essential. Serum or plasma urea nitroge n measurement (mass/volume)Ordered By: Kain Bhakta on 06-13-2022 Urea nitrogen [Mass/Vol] 27 mg/dL 7-18 [facility] Thin prep Papanicolaou smear with manual screeningOrdered By: Kain Bhakta on 06-13-2022 Thin prep Papanicolaou smear with manual screening 7 5-15 [facility] Basophil percentageOrdered B y: Dr. Bhakta on 06-06-2022 Chloride [Moles/Vol] 102 mmol/L 98-107 [facility] Glucose [Mass/Vol] 149 mg/dL 74-106 [facility] Comment on above: Fasting Glucose resu lt greater than or equal to 126 mg/dL suggests DIABETES MELLITUS per A.D.A. criteria. Potassium [Moles/Vol] 3.9 mmol/L 3.5-5.1 [facility] Sodium [Moles/Vol] 139 mmol/L 136-145 [facility] Laboratory - Chemistry and C hemistry - challengeOrdered By: Dr. Bhakta on 06-06-2022 CO2 [Moles/Vol] 30.0 mmol/L 21.0-32.0 [facility] Urea nitrogen/Creatinine [Mass ratio] 17.1 mg/mg 03-06 [facility] No Panel InformationOrdered By: Dr. Bhakta on 06-06-2022 Estimated GFR (MDRD) Amer 46 mL/min >60 [facility] Comment on above: GFR Calc Estimated GFR (MDRD) Non-Af Amer 38 mL/min >60 [facility] Comment on above: Non- GFR Calc Serum or plasma calcium keven urement (mass/volume)Ordered By: Dr. Bhakta on 06-06-2022 Calcium [Mass/Vol] 9.1 mg/dL 8.5-10.1 [facility] Serum or plasma creatinine m easurement (mass/volume)Ordered By: Dr. Bhakta on 06-06-2022 Creatinine [Mass/Vol] 1.81 mg/dL 0.70-1.30 [facility] Comment on above: The validity of the calculated GFR & GFRAA in patients over 70 years has not been determined. Clinical correlation is essential. Serum or plasma urea nitroge n measurement (mass/volume)Ordered By: Dr. Bhakta on 06-06-2022 Urea nitrogen [Mass/Vol] 31 mg/dL 7-18 [facility] Thin prep Papanicolaou smear with manual screeningOrdered By: Dr. Bhakta on 06-06-2022 Thin prep Papanicolaou smear with manual screening 7 5-15 [facility] Basophil percentageOrdered B y: Dr. Bhakta on 06-02-2022 Chloride [Moles/Vol] 100 mmol/L 98-107 [facility] Glucose [Mass/Vol] 124 mg/dL 74-106 [facility] Comment on above: Fasting Glucose resu lt from 100 to 125 mg/dL suggests IMPAIRED HOMEOSTASIS per A.D.A. criteria. Potassium [Moles/Vol] 3.7 mmol/L 3.5-5.1 [facility] Sodium [Moles/Vol] 139 mmol/L 136-145 [facility] Laboratory - Chemistry and C hemistry - challengeOrdered By: Dr. Bhakta on 06-02-2022 CO2 [Moles/Vol] 28.0 mmol/L 21.0-32.0 [facility] Urea nitrogen/Creatinine [Mass ratio] 12.1 mg/mg 03-06 [facility] No Panel InformationOrdered By: Dr. Bhakta on 06-02-2022 Estimated GFR (MDRD) Amer 30 mL/min >60 [facility] Comment on above: GFR Calc Estimated GFR (MDRD) Non-Af Amer 25 mL/min >60 [facility] Comment on above: Non- GFR Calc Serum or plasma calcium keven urement (mass/volume)Ordered By: Dr. Bhakta on 06-02-2022 Calcium [Mass/Vol] 8.8 mg/dL 8.5-10.1 [facility] Serum or plasma creatinine m easurement (mass/volume)Ordered By: Dr. Bhakta on 06-02-2022 Creatinine [Mass/Vol] 2.65 mg/dL 0.70-1.30 [facility] Comment on above: The validity of the calculated GFR & GFRAA in patients over 70 years has not been determined. Clinical correlation is essential. Serum or plasma urea nitroge n measurement (mass/volume)Ordered By: Dr. Bhakta on 06-02-2022 Urea nitrogen [Mass/Vol] 32 mg/dL 7-18 [facility] Thin prep Papanicolaou smear with manual screeningOrdered By: Dr. Bhakta on 06-02-2022 Thin prep Papanicolaou smear with manual screening 11 5-15 [facility] Basophil percentageOrdered B y: Dr. Bhakta on 05-26-2022 Chloride [Moles/Vol] 107 mmol/L 98-107 [facility] Glucose [Mass/Vol] 184 mg/dL 74-106 [facility] Comment on above: Fasting Glucose resu lt greater than or equal to 126 mg/dL suggests DIABETES MELLITUS per A.D.A. criteria. Potassium [Moles/Vol] 3.8 mmol/L 3.5-5.1 [facility] Sodium [Moles/Vol] 140 mmol/L 136-145 [facility] Laboratory - Chemistry and C hemistry - challengeOrdered By: Dr. Bhakta on 05-26-2022 CO2 [Moles/Vol] 27.0 mmol/L 21.0-32.0 [facility] Urea nitrogen/Creatinine [Mass ratio] 14.8 mg/mg 10- [facility] No Panel InformationOrdered By: Dr. Bhakta on 05-26-2022 Estimated GFR (MDRD) Amer 65 mL/min >60 [facility] Comment on above: GFR Calc Estimated GFR (MDRD) Non-Af Amer 54 mL/min >60 [facility] Comment on above: Non- GFR Calc Serum or plasma calcium keven urement (mass/volume)Ordered By: Dr. Bhakta on 05-26-2022 Calcium [Mass/Vol] 8.7 mg/dL 8.5-10.1 [facility] Serum or plasma creatinine m easurement (mass/volume)Ordered By: Dr. Bhakta on 05-26-2022 Creatinine [Mass/Vol] 1.35 mg/dL 0.70-1.30 [facility] Comment on above: The validity of the calculated GFR & GFRAA in patients over 70 years has not been determined. Clinical correlation is essential. Serum or plasma urea nitroge n measurement (mass/volume)Ordered By: Dr. Bhakta on 05-26-2022 Urea nitrogen [Mass/Vol] 20 mg/dL 7-18 [facility] Thin prep Papanicolaou smear with manual screeningOrdered By: Dr. Bhakta on 05-26-2022 Thin prep Papanicolaou smear with manual screening 6 5-15 [facility] Absolute lymphocyte countOrd ered By: Kain Bhakta on 05-22-2022 Lymphocytes Auto (Unsp spec) [#/Vol] 1.33 10*3/uL 0.83-4.51 [facility] Basophil percentageOrdered B y: Kain Bhakta on 05-22-2022 Basophils/100 WBC (Bld) 0.4 % 0-1 [facility] Chloride [Moles/Vol] 107 mmol/L 98-107 [facility] Eosinophils/100 WBC (Bld) 3.0 % 0-5 [facility] Glucose [Mass/Vol] 222 mg/dL 74-106 [facility] Comment on above: Glucose result great er than or equal to 200 mg/dLsuggests DIABETES MELLITUS per A.D.A. criteria. Neutrophils (Bld) [#/Vol] 3.4 10*3/uL 2.0-7.7 [facility] Neutrophils/100 WBC (Bld) 62.5 % 47-70 [facility] Potassium [Moles/Vol] 4.4 mmol/L 3.5-5.1 [facility] Sodium [Moles/Vol] 139 mmol/L 136-145 [facility] WBC (Bld) [#/Vol] 5.4 10*3/uL 4.4-11.0 [facility] Blood erythrocytes count (nu mber/volume)Ordered By: Kain Bhakta on 05-22-2022 RBC (Bld) [#/Vol] 3.13 10*6/uL 4.6-6.2 [facility] Blood hemoglobin measurement (mass/volume)Ordered By: Kain Bhakta on 05-22-2022 Hemoglobin (Bld) [Mass/Vol] 9.2 g/dL 13.0-16.5 [facility] Blood lymphocytes/100 leukoc ytesOrdered By: Kain Bhakta on 05-22-2022 Lymphocytes/100 WBC (Bld) 24.5 % 19-41 [facility] Blood monocytes/100 leukocyt esOrdered By: Kain Bhakta on 05-22-2022 Monocytes/100 WBC (Bld) 8.9 % 0-10 [facility] Blood platelet mean volumeOr dered By: Kain Bhakta on 05-22-2022 Platelet mean volume (Bld) [Entitic vol] 10.0 fL 6.2-12.0 [facility] Determination of erythrocyte mean corpuscular volume (MCV)Ordered By: Kain Bhakta 05-22-2022 MCV (RBC) [Entitic vol] 93.0 fL 80-94 [facility] Hematocrit Auto (Bld) [Volum e fraction]Ordered By: Kain Bhakta on 05-22-2022 Hematocrit (Bld) [Volume fraction] 29.1 % 40-54 [facility] Laboratory - Chemistry and C hemistry - challengeOrdered By: Kain Bhakta 05-22-2022 CO2 [Moles/Vol] 27.0 mmol/L 21.0-32.0 [facility] Natriuretic peptide B (Bld) [Mass/Vol] 41.2 pg/mL 0-100 [facility] Urea nitrogen/Creatinine [Mass ratio] 21.1 mg/mg 10-20 [facility] Laboratory - Hematology and Cell countsOrdered By: Kain Bhakta on 05-22-2022 Erythrocyte distribution width (RBC) [Entitic vol] 50.6 fL 35.1-43.9 [facility] Erythrocyte distribution width (RBC) [Ratio] 15.0 % 11.6-14.6 [facility] Immature granulocytes/100 WBC (Bld) 0.700 % 0.0-0.9 [facility] Comment on above: IG% - Immature Granu locytes (promyelocytes, myelocytes and metamyelocytes) > 1% indicates that a LEFT SHIFT is Present. MCH (RBC) [Entitic mass] 29.4 pg 27.0-32.0 [facility] Nucleated RBC/100 WBC (Bld) [Ratio] 0 % 0-5 [facility] MCHC Auto (RBC) [Mass/Vol]Or dered By: Kain Bhakta on 05-22-2022 MCHC (RBC) [Mass/Vol] 31.6 g/dL 32-36 [facility] No Panel InformationOrdered By: Kain Bhakta on 05-22-2022 Estimated GFR (MDRD) Amer 50 mL/min >60 [facility] Comment on above: GFR Calc Estimated GFR (MDRD) Non-Af Amer 41 mL/min >60 [facility] Comment on above: Non- GFR Calc Platelets bldOrdered By: Kain Bhakta on 05-22-2022 Platelets (Bld) [#/Vol] 170 10*3/uL 150-450 [facility] Serum or plasma calcium keven urement (mass/volume)Ordered By: Kain Bhakta on 05-22-2022 Calcium [Mass/Vol] 8.5 mg/dL 8.5-10.1 [facility] Serum or plasma creatinine m easurement (mass/volume)Ordered By: Kain Bhakta on 05-22-2022 Creatinine [Mass/Vol] 1.71 mg/dL 0.70-1.30 [facility] Comment on above: The validity of the calculated GFR & GFRAA in patients over 70 years has not been determined. Clinical correlation is essential. Serum or plasma urea nitroge n measurement (mass/volume)Ordered By: Kain Bhakta on 05-22-2022 Urea nitrogen [Mass/Vol] 36 mg/dL 7-18 [facility] Thin prep Papanicolaou smear with manual screeningOrdered By: Kain Bhakta on 05-22-2022 Thin prep Papanicolaou smear with manual screening 5 5-15 [facility] Absolute lymphocyte countOrd ered By: Dr. Bhakta on 04-30-2022 Lymphocytes Auto (Unsp spec) [#/Vol] 0.50 10*3/uL 0.83-4.51 [facility] Basophil percentageOrdered B y: Dr. Bhakta on 04-30-2022 Basophils/100 WBC (Bld) 0.1 % 0-1 [facility] Bilirubin [Mass/Vol] 0.50 mg/dL 0.20-1.00 [facility] Comment on above: For patients on eltr ombopag therapy, use of Dimension Taylor TBIL is not recommended. Chloride [Moles/Vol] 100 mmol/L 98-107 [facility] Eosinophils/100 WBC (Bld) 0.0 % 0-5 [facility] Glucose [Mass/Vol] 346 mg/dL 74-106 [facility] Comment on above: Glucose result great er than or equal to 200 mg/dLsuggests DIABETES MELLITUS per A.D.A. criteria. Neutrophils (Bld) [#/Vol] 9.1 10*3/uL 2.0-7.7 [facility] Neutrophils/100 WBC (Bld) 92.4 % 47-70 [facility] Potassium [Moles/Vol] 4.4 mmol/L 3.5-5.1 [facility] Protein [Mass/Vol] 7.2 g/dL 6.4-8.2 [facility] Sodium [Moles/Vol] 132 mmol/L 136-145 [facility] WBC (Bld) [#/Vol] 9.9 10*3/uL 4.4-11.0 [facility] Blood erythrocytes count (nu mber/volume)Ordered By: Dr. Bhakta on 04-30-2022 RBC (Bld) [#/Vol] 3.78 10*6/uL 4.6-6.2 [facility] Blood hemoglobin measurement (mass/volume)Ordered By: Dr. Bhakta on 04-30-2022 Hemoglobin (Bld) [Mass/Vol] 11.0 g/dL 13.0-16.5 [facility] Blood lymphocytes/100 leukoc ytesOrdered By: Dr. Bhakta on 04-30-2022 Lymphocytes/100 WBC (Bld) 5.1 % 19-41 [facility] Blood manual differential co mment interpretation (narrative result)Ordered By: Dr. Bhakta on 04-30-2022 Manual differential comment Edson (Bld) [Interp] SCANNED [facility] Blood monocytes/100 leukocyt esOrdered By: Dr. Bhakta on 04-30-2022 Monocytes/100 WBC (Bld) 1.7 % 0-10 [facility] Blood platelet mean volumeOr dered By: Dr. Bhakta on 04-30-2022 Platelet mean volume (Bld) [Entitic vol] 10.9 fL 6.2-12.0 [facility] Determination of erythrocyte mean corpuscular volume (MCV)Ordered By: Dr. Bhakta on 04-30-2022 MCV (RBC) [Entitic vol] 89.4 fL 80-94 [facility] Hematocrit Auto (Bld) [Volum e fraction]Ordered By: Dr. Bhakta on 04-30-2022 Hematocrit (Bld) [Volume fraction] 33.8 % 40-54 [facility] Laboratory - Chemistry and C hemistry - challengeOrdered By: Dr. Bhakta on 04-30-2022 ALP [Catalytic activity/Vol] 68 U/L 45-117 [facility] ALT [Catalytic activity/Vol] 33 U/L 16-61 [facility] CO2 [Moles/Vol] 21.0 mmol/L 21.0-32.0 [facility] Globulin (S) [Mass/Vol] 4.4 g/dL 2.2-4.2 [facility] Urea nitrogen/Creatinine [Mass ratio] 16.4 mg/mg 10-20 [facility] Laboratory - Hematology and Cell countsOrdered By: Dr. Bhakta on 04-30-2022 Erythrocyte distribution width (RBC) [Entitic vol] 42.7 fL 35.1-43.9 [facility] Erythrocyte distribution width (RBC) [Ratio] 13.2 % 11.6-14.6 [facility] Immature granulocytes/100 WBC (Bld) 0.700 % 0.0-0.9 [facility] Comment on above: IG% - Immature Granu locytes (promyelocytes, myelocytes and metamyelocytes) > 1% indicates that a LEFT SHIFT is Present. MCH (RBC) [Entitic mass] 29.1 pg 27.0-32.0 [facility] Nucleated RBC/100 WBC (Bld) [Ratio] 0.2 % 0-5 [facility] MCHC Auto (RBC) [Mass/Vol]Or dered By: Dr. Bhakta on 04-30-2022 MCHC (RBC) [Mass/Vol] 32.5 g/dL 32-36 [facility] No Panel InformationOrdered By: Dr. Bhakta on 04-30-2022 Estimated GFR (MDRD) Amer 60 mL/min >60 [facility] Comment on above: GFR Calc Estimated GFR (MDRD) Non-Af Amer 49 mL/min >60 [facility] Comment on above: Non- GFR Calc Thyroid Stimulating Hormone (TSH) 0.91 uIU/mL 0.358-3.74 [facility] Vitamin D 25-Hydroxy 88.5 ng/mL [facility] Comment on above: Vitamin D 25(OH) Sta tus Range Deficiency <20 ng/mL (50nmol/L) Insufficiency 20 - 30 ng/mL (50 - 75 nmol/L) Sufficiency 30 - 100 ng/mL (75 - 250 nmol/L) Toxicity >100 ng/mL (>250 nmol/L) Platelets bldOrdered By: Dr. Bhakta on 04-30-2022 Platelets (Bld) [#/Vol] 198 10*3/uL 150-450 [facility] Serum or plasma albumin keven urement (mass/volume)Ordered By: Dr. Bhakta on 04-30-2022 Albumin [Mass/Vol] 2.8 g/dL 3.2-5.0 [facility] Serum or plasma albumin/glob ulin mass ratioOrdered By: Dr. Bhakta on 04-30-2022 Albumin/Globulin [Mass ratio] 0.6 {ratio} 0.9-2.4 [facility] Serum or plasma calcium keven urement (mass/volume)Ordered By: Dr. Bhakta on 04-30-2022 Calcium [Mass/Vol] 8.6 mg/dL 8.5-10.1 [facility] Serum or plasma creatinine m easurement (mass/volume)Ordered By: Dr. Bhakta on 04-30-2022 Creatinine [Mass/Vol] 1.46 mg/dL 0.70-1.30 [facility] Comment on above: The validity of the calculated GFR & GFRAA in patients over 70 years has not been determined. Clinical correlation is essential. Serum or plasma urea nitroge n measurement (mass/volume)Ordered By: Dr. Bhakta on 04-30-2022 Urea nitrogen [Mass/Vol] 24 mg/dL 7-18 [facility] Thin prep Papanicolaou smear with manual screeningOrdered By: Dr. Bhakta on 04-30-2022 Thin prep Papanicolaou smear with manual screening 20 U/L 15- [facility] Thin prep Papanicolaou smear with manual screening 11 5-15 [facility] Absolute lymphocyte countOrd ered By: Dr. Becker on 04-23-2022 Lymphocytes Auto (Unsp spec) [#/Vol] 0.87 10*3/uL 0.83-4.51 [facility] Basophil percentageOrdered B y: Dr. Becker on 04-23-2022 Basophils/100 WBC (Bld) 0.0 % 0-1 [facility] Chloride [Moles/Vol] 107 mmol/L 98-107 [facility] Eosinophils/100 WBC (Bld) 0.0 % 0-5 [facility] Glucose [Mass/Vol] 192 mg/dL 74-106 [facility] Comment on above: Fasting Glucose resu lt greater than or equal to 126 mg/dL suggests DIABETES MELLITUS per A.D.A. criteria. Neutrophils (Bld) [#/Vol] 5.9 10*3/uL 2.0-7.7 [facility] Neutrophils/100 WBC (Bld) 83.3 % 47-70 [facility] Potassium [Moles/Vol] 4.7 mmol/L 3.5-5.1 [facility] Sodium [Moles/Vol] 136 mmol/L 136-145 [facility] WBC (Bld) [#/Vol] 7.0 10*3/uL 4.4-11.0 [facility] Blood erythrocytes count (nu mber/volume)Ordered By: Dr. Becker on 04-23-2022 RBC (Bld) [#/Vol] 3.59 10*6/uL 4.6-6.2 [facility] Blood hemoglobin measurement (mass/volume)Ordered By: Dr. Becker on 04-23-2022 Hemoglobin (Bld) [Mass/Vol] 10.7 g/dL 13.0-16.5 [facility] Blood lymphocytes/100 leukoc ytesOrdered By: Dr. Becker on 04-23-2022 Lymphocytes/100 WBC (Bld) 12.4 % 19-41 [facility] Blood monocytes/100 leukocyt esOrdered By: Dr. Becker on 04-23-2022 Monocytes/100 WBC (Bld) 4.0 % 0-10 [facility] Blood platelet mean volumeOr dered By: Dr. Becker on 04-23-2022 Platelet mean volume (Bld) [Entitic vol] 9.3 fL 6.2-12.0 [facility] Determination of erythrocyte mean corpuscular volume (MCV)Ordered By: Dr. Becker on 04-23-2022 MCV (RBC) [Entitic vol] 89.4 fL 80-94 [facility] Glucose Glucometer (dC) [M ass/Vol]Ordered By: Dr. Becker on 04-23-2022 Glucose [Mass/Vol] 342 mg/dL 74-106 [facility] Comment on above: MANAGEMENT OF PATIEN T CARE PER NURSING PROTOCOL Hematocrit Auto (Bld) [Volum e fraction]Ordered By: Dr. Becker on 04-23-2022 Hematocrit (Bld) [Volume fraction] 32.1 % 40-54 [facility] Laboratory - Chemistry and C hemistry - challengeOrdered By: Dr. Becker on 04-23-2022 CO2 [Moles/Vol] 27.0 mmol/L 21.0-32.0 [facility] Urea nitrogen/Creatinine [Mass ratio] 33.1 mg/mg 10-20 [facility] Laboratory - Hematology and Cell countsOrdered By: Dr. Becker on 04-23-2022 Erythrocyte distribution width (RBC) [Entitic vol] 43.5 fL 35.1-43.9 [facility] Erythrocyte distribution width (RBC) [Ratio] 13.2 % 11.6-14.6 [facility] Immature granulocytes/100 WBC (Bld) 0.300 % 0.0-0.9 [facility] Comment on above: IG% - Immature Granu locytes (promyelocytes, myelocytes and metamyelocytes) > 1% indicates that a LEFT SHIFT is Present. MCH (RBC) [Entitic mass] 29.8 pg 27.0-32.0 [facility] Nucleated RBC/100 WBC (Bld) [Ratio] 0 % 0-5 [facility] MCHC Auto (RBC) [Mass/Vol]Or dered By: Dr. Becker on 04-23-2022 MCHC (RBC) [Mass/Vol] 33.3 g/dL 32-36 [facility] No Panel InformationOrdered By: Dr. Becker on 04-23-2022 Estimated Creatinine Clearance Calc 43.21 ml/min [facility] Estimated GFR (MDRD) Amer 74 mL/min >60 [facility] Comment on above: GFR Calc Estimated GFR (MDRD) Non-Af Amer 61 mL/min >60 [facility] Comment on above: Non- GFR Calc Platelets bldOrdered By: Dr. Becker on 04-23-2022 Platelets (Bld) [#/Vol] 252 10*3/uL 150-450 [facility] Serum or plasma calcium keven urement (mass/volume)Ordered By: Dr. Becker on 04-23-2022 Calcium [Mass/Vol] 8.3 mg/dL 8.5-10.1 [facility] Serum or plasma creatinine m easurement (mass/volume)Ordered By: Dr. Becker on 04-23-2022 Creatinine [Mass/Vol] 1.21 mg/dL 0.70-1.30 [facility] Comment on above: The validity of the calculated GFR & GFRAA in patients over 70 years has not been determined. Clinical correlation is essential. Serum or plasma urea nitroge n measurement (mass/volume)Ordered By: Dr. Becker on 04-23-2022 Urea nitrogen [Mass/Vol] 40 mg/dL 7-18 [facility] Thin prep Papanicolaou smear with manual screeningOrdered By: Dr. Becker on 04-23-2022 Thin prep Papanicolaou smear with manual screening 2 5-15 [facility] Basophil percentageOrdered B y: Dr. Becker on 04-22-2022 Bilirubin [Mass/Vol] 0.40 mg/dL 0.20-1.00 [facility] Comment on above: For patients on eltr ombopag therapy, use of Dimension Taylor TBIL is not recommended. Protein [Mass/Vol] 6.2 g/dL 6.4-8.2 [facility] Laboratory - Chemistry and C hemistry - challengeOrdered By: Dr. Becker on 04-22-2022 ALP [Catalytic activity/Vol] 42 U/L 45-117 [facility] ALT [Catalytic activity/Vol] 38 U/L 16-61 [facility] Globulin (S) [Mass/Vol] 4.1 g/dL 2.2-4.2 [facility] Serum or plasma albumin keven urement (mass/volume)Ordered By: Dr. Becker on 04-22-2022 Albumin [Mass/Vol] 2.1 g/dL 3.2-5.0 [facility] Serum or plasma albumin/glob ulin mass ratioOrdered By: Dr. Becker on 04-22-2022 Albumin/Globulin [Mass ratio] 0.5 {ratio} 0.9-2.4 [facility] Thin prep Papanicolaou smear with manual screeningOrdered By: Dr. Becker on 04-22-2022 Thin prep Papanicolaou smear with manual screening 30 U/L 15-37 [facility] Serum or plasma C reactive p rotein measurement (mass/volume)Ordered By: Dr. Levy on 04-20-2022 CRP [Mass/Vol] 36.40 mg/L 0.0-3.0 [facility] Comment on above: C-Reactive Protein ( CRP) provides useful information for thediagnosis, therapy and monitoring of inflammatory processesand associated diseases. For the evaluation of Relative Riskfor Cardiovascular Disease, a High Sensitivity CRP (HSCRP)should be ordered. Laboratory - Microbiology an d Antimicrobial susceptibilityOrdered By: Dr. Diamond on 04-19-2022 SARS-CoV-2 (COVID-19) RNA VISHAL+probe Ql (Unsp spec) Detected Not Detect [facility] [facility] Comment on above: RESULTS CALLED TO JUDY VILLELA 04/19/22 08Rafael Shelton.REPORT READ BACK BY Alvino Reference Range: Not DetectedMethod:(RT-PCR) real-time reverse transcriptase PCRLuminex BECKY Instrument*The Food and Drug Administration (FDA) has issued an Emergency Use Authorization (EAU) for the BECKY SARS-CoV-2 Assay for the rapid detection of the virus that causes COVID-19. This test has been validated, but the FDAs independent review of this validation is pending.*Negative results do not preclude infection and should not be used as the sole basis for treatment or patient management. Optimum specimen types and timing for peak viral levels during infections caused by SARS-CoV-2 have not been determined. Collection of multiple specimens from the same patient may be necessary to detect the virus. The possibility of a false negative result should be considered if the patient has clinical presentation or has had recent exposure. No Panel InformationOrdered By: Dr. Diaomnd on 04-19-2022 Troponin I High Sensitivity 35 pg/mL 3.0-78.0 [facility] Comment on above: Please Note: New Cary t Units and Gender Specific Reference Ranges. For more information see Policy Stat Procedure Taylor High Sensitivity Troponin (TNIH) and attachments. Streptococcus pneumoniae Antigen (M [facility] Serum procalcitonin measurem entOrdered By: Dr. Diamond on 04-19-2022 Procalcitonin [Mass/Vol] 0.04 ng/mL 0.00-0.09 [facility] Comment on above: A procalcitonin (PCT ) level above 2.0 ng/mL on the first day of ICU admission is associated with a high risk for progression to severe sepsis and/or septic shock. A PCT level below 0.5 ng/mL on the first day of ICU admission is associated with a low risk for progression to severe and/or septic shock. Note: Concentrations <0.5 ng/mL do not exclude an infection on account of localized infections (without systemic signs) which can be associated with such low concentrations, or a systemic infection in its initial stages (<6 hours). Furthermore, increased procalcitonin can occur without infection. PCT concentrations between 0.5 and 2.0 ng/mL should be interpreted taking into account the patient's history. It is recommended to retest PCT within 6-24 hours if any concentrations <2 ng/mL are obtained. Urine Legionella pneumophila antigen detectionOrdered By: Dr. Diamond on 04-19-2022 L. pneumophila Ag Ql (U) [facility] Absolute lymphocyte counton 04-18-2022 Lymphocytes Auto (Unsp spec) [#/Vol] 0.85 10*3/uL 0.83-4.51 [facility] Work Phone: Basophil percentageOrdered B y: Dr. Murphy on 04-18-2022 Basophil percentage 0 SEEN /hpf 0-5 [facility] Basophil percentageon 2021 Basophils/100 WBC (Bld) 0.2 % 0-1 [facility] Work Phone: Chloride [Moles/Vol] 105 mmol/L 98-107 [facility] Work Phone: Eosinophils/100 WBC (Bld) 0.1 % 0-5 [facility] Work Phone: Glucose [Mass/Vol] 59 mg/dL 74-106 [facility] Work Phone: Neutrophils (Bld) [#/Vol] 7.0 10*3/uL 2.0-7.7 [facility] Work Phone: Neutrophils/100 WBC (Bld) 83.7 % 47-70 [facility] Work Phone: Potassium [Moles/Vol] 4.2 mmol/L 3.5-5.1 [facility] Work Phone: Sodium [Moles/Vol] 136 mmol/L 136-145 [facility] Work Phone: WBC (Bld) [#/Vol] 8.4 10*3/uL 4.4-11.0 [facility] Work Phone: Bilirubin Test strip Ql (U)O rdered By: Dr. Murphy on 04-18-2022 Bilirubin Ql (U) Negative Negative [facility] Blood erythrocytes count (nu mber/volume)on 04-18-2022 RBC (Bld) [#/Vol] 4.05 10*6/uL 4.6-6.2 [facility] Work Phone: Blood hemoglobin measurement (mass/volume)on 04-18-2022 Hemoglobin (Bld) [Mass/Vol] 11.9 g/dL 13.0-16.5 [facility] Work Phone: Blood lymphocytes/100 leukoc yteson 04-18-2022 Lymphocytes/100 WBC (Bld) 10.1 % 19-41 [facility] Work Phone: Blood monocytes/100 leukocyt eson 04-18-2022 Monocytes/100 WBC (Bld) 5.4 % 0-10 [facility] Work Phone: Blood platelet mean volumeon 04-18-2022 Platelet mean volume (Bld) [Entitic vol] 9.9 fL 6.2-12.0 [facility] Work Phone: Determination of erythrocyte mean corpuscular volume (MCV)on 04-18-2022 MCV (RBC) [Entitic vol] 89.1 fL 80-94 [facility] Work Phone: Glucose Glucometer (BldC) [M ass/Vol]on 04-18-2022 Glucose [Mass/Vol] 200 mg/dL 74-106 [facility] Work Phone: Comment on above: MANAGEMENT OF PATIEN T CARE PER NURSING PROTOCOL Hematocrit Auto (Bld) [Volum e fraction]on 04-18-2022 Hematocrit (Bld) [Volume fraction] 36.1 % 40-54 [facility] Work Phone: Influenza virus A and B and SARS-CoV-2 (COVID-19) Ag panel - Upper respiratory specimOrdered By: Dr. Murphy on 04-18-2022 SARS-CoV-2 (COVID-19) RNA VISHAL+probe Ql (Resp) [facility] Ketones Test strip Ql (U)Ord ered By: Dr. Murphy on 04-18-2022 Ketones Ql (U) 5 mg/dl Negative [facility] Laboratory - Chemistry and C hemistry - challengeon 04-18-2022 CO2 [Moles/Vol] 25.0 mmol/L 21.0-32.0 [facility] Work Phone: Urea nitrogen/Creatinine [Mass ratio] 31.6 mg/mg 10-20 [facility] Work Phone: Laboratory - Chemistry and C hemistry - challengeOrdered By: Dr. Murphy on 04-18-2022 Natriuretic peptide B (Bld) [Mass/Vol] 28.8 pg/mL 0-100 [facility] Laboratory - Chemistry and C hemistry - challengeOrdered By: Dr. Diamond on 04-18-2022 Sodium (U) [Moles/Vol] 40 mmol/L Not Establ. [facility] Laboratory - Hematology and Cell countson 04-18-2022 Erythrocyte distribution width (RBC) [Entitic vol] 44.4 fL 35.1-43.9 [facility] Work Phone: Erythrocyte distribution width (RBC) [Ratio] 13.5 % 11.6-14.6 [facility] Work Phone: Immature granulocytes/100 WBC (Bld) 0.500 % 0.0-0.9 [facility] Work Phone: Comment on above: IG% - Immature Granu locytes (promyelocytes, myelocytes and metamyelocytes) > 1% indicates that a LEFT SHIFT is Present. MCH (RBC) [Entitic mass] 29.4 pg 27.0-32.0 [facility] Work Phone: Nucleated RBC/100 WBC (Bld) [Ratio] 0 % 0-5 [facility] Work Phone: MCHC Auto (RBC) [Mass/Vol]on 04-18-2022 MCHC (RBC) [Mass/Vol] 33.0 g/dL 32-36 [facility] Work Phone: Mucus LM Ql (Urine sed)Order ed By: Dr. Murphy on 04-18-2022 Mucus Ql (Urine sed) RARE /hpf [facility] Nitrite Test strip Ql (U)Ord ered By: Dr. Murphy on 04-18-2022 Nitrite Ql (U) Negative Negative [facility] No Panel Informationon 04-18 Troponin I High Sensitivity 36 pg/mL 3.0-78.0 [facility] Work Phone: Comment on above: Please Note: New Cary t Units and Gender Specific Reference Ranges. For more information see Policy Stat Procedure Taylor High Sensitivity Troponin (TNIH) and attachments. Estimated Creatinine Clearance Calc 20.60 ml/min [facility] Work Phone: Estimated GFR (MDRD) Amer 30 mL/min >60 [facility] Work Phone: Comment on above: GFR Calc Estimated GFR (MDRD) Non-Af Amer 25 mL/min >60 [facility] Work Phone: Comment on above: Non- GFR Calc No Panel InformationOrdered By: Dr. Murphy on 04-18-2022 D-Dimer Quantitative (PE/DVT) 8.04 FEU/ug/m 0.27-0.49 [facility] Comment on above: D-Dimer ELEVATED (>0 .49): Additional studies and clinicalassessments are indicated to conclude diagnosis of:Deep Vein Thrombosis (DVT) or Pulmonary Embolism (PE)CRITICAL VALUE VERIFIED. CALLED TO HYUZOXBE20/02/22 [facility]2 Jocelyn Koo.RESULTS READ BACK BY SAME . Platelets bldon 04-18-2022 Platelets (Bld) [#/Vol] 302 10*3/uL 150-450 [facility] Work Phone: Protein Test strip Ql (U)Ord ered By: Dr. Murphy on 04-18-2022 Protein Ql (U) Negative Negative [facility] RSV Ag EIAOrdered By: Dr. Hou nndeven on 04-18-2022 RSV Ag Immune stain Ql (Tiss) [facility] Serum or plasma calcium keven urement (mass/volume)on 04-18-2022 Calcium [Mass/Vol] 9.1 mg/dL 8.5-10.1 [facility] Work Phone: Serum or plasma creatinine m easurement (mass/volume)on 04-18-2022 Creatinine [Mass/Vol] 2.63 mg/dL 0.70-1.30 [facility] Work Phone: Comment on above: The validity of the calculated GFR & GFRAA in patients over 70 years has not been determined. Clinical correlation is essential. Serum or plasma urea nitroge n measurement (mass/volume)on 04-18-2022 Urea nitrogen [Mass/Vol] 83 mg/dL 7-18 [facility] Work Phone: Squamous epithelial cells de tection in urine sediment by light microscopyOrdered By: Dr. Murphy on 04-18-2022 Epithelial cells.squamous LM Ql (Urine sed) 0 SEEN /hpf 0-5 [facility] Thin prep Papanicolaou smear with manual screeningon 04-18-2022 Thin prep Papanicolaou smear with manual screening 6 5-15 [facility] Work Phone: Urine blood detectionOrdered By: Dr. Murphy on 04-18-2022 RBC Ql (U) 10 /ul Negative [facility] RBC Ql (U) 0 SEEN /hpf 0-5 [facility] Urine clarityOrdered By: Dr. Murphy on 04-18-2022 Clarity (U) Clear Clear [facility] Urine color determinationOrd ered By: Dr. Murphy on 04-18-2022 Color (U) Yellow Yellow [facility] Urine creatinine measurement (mass/volume)Ordered By: Dr. Diamond on 04-18-2022 Creatinine (U) [Mass/Vol] 97.50 mg/dL NO RANGE EST. [facility] Urine glucose detectionOrder ed By: Dr. Murphy on 04-18-2022 Glucose Ql (U) Normal mg/dl Normal [facility] Urine leukocyte esterase det ection by dipstickOrdered By: Dr. Murphy on 04-18-2022 Leukocyte esterase Test strip Ql (U) Negative Negative [facility] Urine osmolality measurement Ordered By: Dr. Diamond on 04-18-2022 Osmolality (U) [Osmolality] 588 mOsm/KG >50 [facility] Comment on above: Normal Urine Referen ce Ranges Random: 50 - 1200 mOsm/kg H20 depending on fluid intake Random: >850 mOsm/kg after 12 hour fluid restriction 24 hour: ~300 - 900 mOsm/kg H2O Urine pHOrdered By: Dr. Ender carvalho on 04-18-2022 pH (U) 5.0 [pH] 5.0 - 8.0 [facility] Urine sediment bacteria coun t by microscopy (number/high power field)Ordered By: Dr. Murphy on 04-18-2022 Bacteria LM.HPF (Urine sed) [#/Area] RARE /hpf None Seen [facility] Urine specific gravity measu rementOrdered By: Dr. Murphy on 04-18-2022 Specific gravity (U) [Rel density] 1.020 1.002-1.030 [facility] Urobilinogen Auto test strip Ql (U)Ordered By: Dr. Murphy on 04-18-2022 Urobilinogen Ql (U) Normal mg/dl Normal [facility] Laboratory - Microbiology an d Antimicrobial susceptibilityOrdered By: Dr. Bhakta on 04-14-2022 SARS-CoV-2 (COVID-19) RNA VISHAL+probe Ql (Unsp spec) Detected Not Detect [facility] Comment on above: Normal Reference Ran ge: Not DetectedMethod:(RT-PCR) real-time reverse transcriptase PCRLuminex Grove Labs Instrument*The Food and Drug Administration (FDA) has issued an Emergency Use Authorization (EAU) for the BECKY SARS-CoV-2 Assay for the rapid detection of the virus that causes COVID-19. This test has been validated, but the FDAs independent review of this validation is pending.*Negative results do not preclude infection and should not be used as the sole basis for treatment or patient management. Optimum specimen types and timing for peak viral levels during infections caused by SARS-CoV-2 have not been determined. Collection of multiple specimens from the same patient may be necessary to detect the virus. The possibility of a false negative result should be considered if the patient has clinical presentation or has had recent exposure. No Panel InformationOrdered By: Dr. Bhakta on 04-14-2022 Influenza Types A,B Direct FA (GREG) [facility] RSV Ag EIAOrdered By: Dr. Peter hill on 04-14-2022 RSV Ag Immune stain Ql (Tiss) [facility] Absolute lymphocyte countOrd ered By: Dr. Bhakta on 04-09-2022 Lymphocytes Auto (Unsp spec) [#/Vol] 1.20 10*3/uL 0.83-4.51 [facility] Basophil percentageOrdered B y: Dr. Bhakta on 04-09-2022 Basophils/100 WBC (Bld) 0.2 % 0-1 [facility] Bilirubin [Mass/Vol] 0.70 mg/dL 0.20-1.00 [facility] Comment on above: For patients on eltr ombopag therapy, use of Dimension Taylor TBIL is not recommended. Chloride [Moles/Vol] 100 mmol/L 98-107 [facility] Eosinophils/100 WBC (Bld) 0.0 % 0-5 [facility] Glucose [Mass/Vol] 159 mg/dL 74-106 [facility] Comment on above: Fasting Glucose resu lt greater than or equal to 126 mg/dL suggests DIABETES MELLITUS per A.D.A. criteria. Neutrophils (Bld) [#/Vol] 3.6 10*3/uL 2.0-7.7 [facility] Neutrophils/100 WBC (Bld) 68.3 % 47-70 [facility] Potassium [Moles/Vol] 4.0 mmol/L 3.5-5.1 [facility] Protein [Mass/Vol] 7.3 g/dL 6.4-8.2 [facility] Sodium [Moles/Vol] 131 mmol/L 136-145 [facility] WBC (Bld) [#/Vol] 5.2 10*3/uL 4.4-11.0 [facility] Blood erythrocytes count (nu mber/volume)Ordered By: Dr. Bhakta on 04-09-2022 RBC (Bld) [#/Vol] 4.02 10*6/uL 4.6-6.2 [facility] Blood hemoglobin measurement (mass/volume)Ordered By: Dr. Bhakta on 04-09-2022 Hemoglobin (Bld) [Mass/Vol] 12.3 g/dL 13.0-16.5 [facility] Blood lymphocytes/100 leukoc ytesOrdered By: Dr. Bhakta on 04-09-2022 Lymphocytes/100 WBC (Bld) 23.0 % 19-41 [facility] Blood monocytes/100 leukocyt esOrdered By: Dr. Bhakta on 04-09-2022 Monocytes/100 WBC (Bld) 8.1 % 0-10 [facility] Blood platelet mean volumeOr dered By: Dr. Bhakta on 04-09-2022 Platelet mean volume (Bld) [Entitic vol] 9.8 fL 6.2-12.0 [facility] Determination of erythrocyte mean corpuscular volume (MCV)Ordered By: Dr. Bhakta on 04-09-2022 MCV (RBC) [Entitic vol] 88.3 fL 80-94 [facility] Hematocrit Auto (Bld) [Volum e fraction]Ordered By: Dr. Bhakta on 04-09-2022 Hematocrit (Bld) [Volume fraction] 35.5 % 40-54 [facility] Laboratory - Chemistry and C hemistry - challengeOrdered By: Dr. Bhakta on 04-09-2022 ALP [Catalytic activity/Vol] 65 U/L 45-117 [facility] ALT [Catalytic activity/Vol] 39 U/L 16-61 [facility] CO2 [Moles/Vol] 21.0 mmol/L 21.0-32.0 [facility] Globulin (S) [Mass/Vol] 4.2 g/dL 2.2-4.2 [facility] Urea nitrogen/Creatinine [Mass ratio] 24.2 mg/mg 10-20 [facility] Laboratory - Hematology and Cell countsOrdered By: Dr. Bhakta on 04-09-2022 Erythrocyte distribution width (RBC) [Entitic vol] 43.8 fL 35.1-43.9 [facility] Erythrocyte distribution width (RBC) [Ratio] 13.3 % 11.6-14.6 [facility] Immature granulocytes/100 WBC (Bld) 0.400 % 0.0-0.9 [facility] Comment on above: IG% - Immature Granu locytes (promyelocytes, myelocytes and metamyelocytes) > 1% indicates that a LEFT SHIFT is Present. MCH (RBC) [Entitic mass] 30.6 pg 27.0-32.0 [facility] Nucleated RBC/100 WBC (Bld) [Ratio] 0 % 0-5 [facility] MCHC Auto (RBC) [Mass/Vol]Or dered By: Dr. Bhakta on 04-09-2022 MCHC (RBC) [Mass/Vol] 34.6 g/dL 32-36 [facility] No Panel InformationOrdered By: Dr. Bhakta on 04-09-2022 Estimated GFR (MDRD) Amer 46 mL/min >60 [facility] Comment on above: GFR Calc Estimated GFR (MDRD) Non-Af Amer 38 mL/min >60 [facility] Comment on above: Non- GFR Calc Platelets bldOrdered By: Dr. Bhakta on 04-09-2022 Platelets (Bld) [#/Vol] 188 10*3/uL 150-450 [facility] Serum or plasma albumin keven urement (mass/volume)Ordered By: Dr. Bhakta on 04-09-2022 Albumin [Mass/Vol] 3.1 g/dL 3.2-5.0 [facility] Serum or plasma albumin/glob ulin mass ratioOrdered By: Dr. Bhakta on 04-09-2022 Albumin/Globulin [Mass ratio] 0.7 {ratio} 0.9-2.4 [facility] Serum or plasma calcium keven urement (mass/volume)Ordered By: Dr. Bhakta on 04-09-2022 Calcium [Mass/Vol] 8.3 mg/dL 8.5-10.1 [facility] Serum or plasma creatinine m easurement (mass/volume)Ordered By: Dr. Bhakta on 04-09-2022 Creatinine [Mass/Vol] 1.82 mg/dL 0.70-1.30 [facility] Comment on above: The validity of the calculated GFR & GFRAA in patients over 70 years has not been determined. Clinical correlation is essential. Serum or plasma urea nitroge n measurement (mass/volume)Ordered By: Dr. Bhakta on 04-09-2022 Urea nitrogen [Mass/Vol] 44 mg/dL 7-18 [facility] Thin prep Papanicolaou smear with manual screeningOrdered By: Dr. Bhakta on 04-09-2022 Thin prep Papanicolaou smear with manual screening 73 U/L 15-37 [facility] Thin prep Papanicolaou smear with manual screening 10 5-15 [facility] Absolute lymphocyte countOrd ered By: Dr. Bhakta on 02-05-2022 Lymphocytes Auto (Unsp spec) [#/Vol] 1.76 10*3/uL 0.83-4.51 [facility] Basophil percentageOrdered B y: Dr. Bhakta on 02-05-2022 Basophils/100 WBC (Bld) 0.7 % 0-1 [facility] Bilirubin [Mass/Vol] 0.50 mg/dL 0.20-1.00 [facility] Comment on above: For patients on eltr ombopag therapy, use of Dimension Taylor TBIL is not recommended. Chloride [Moles/Vol] 105 mmol/L 98-107 [facility] Eosinophils/100 WBC (Bld) 3.7 % 0-5 [facility] Glucose [Mass/Vol] 174 mg/dL 74-106 [facility] Comment on above: Fasting Glucose resu lt greater than or equal to 126 mg/dL suggests DIABETES MELLITUS per A.D.A. criteria. Neutrophils (Bld) [#/Vol] 3.0 10*3/uL 2.0-7.7 [facility] Neutrophils/100 WBC (Bld) 55.0 % 47-70 [facility] Potassium [Moles/Vol] 3.8 mmol/L 3.5-5.1 [facility] Protein [Mass/Vol] 7.3 g/dL 6.4-8.2 [facility] Sodium [Moles/Vol] 138 mmol/L 136-145 [facility] Testosterone [Mass/Vol] 304.07 ng/dL [facility] Comment on above: CENTRAL 90% REFERENC E RANGES MALE AGE <50 197.44 - 669.58 ng/dL MALE AGE > or = 50 187.72 - 684.19 ng/dL FEMALE AGE <50 8.38 - 35.01 ng/dL FEMALE AGE > or = 50 <7.00 - 35.92 ng/dL Effective as of 12/11/20 WBC (Bld) [#/Vol] 5.4 10*3/uL 4.4-11.0 [facility] Blood erythrocytes count (nu mber/volume)Ordered By: Dr. Bhakta on 02-05-2022 RBC (Bld) [#/Vol] 3.97 10*6/uL 4.6-6.2 [facility] Blood hemoglobin measurement (mass/volume)Ordered By: Dr. Bhakta on 02-05-2022 Hemoglobin (Bld) [Mass/Vol] 12.3 g/dL 13.0-16.5 [facility] Blood lymphocytes/100 leukoc ytesOrdered By: Dr. Bhakta on 02-05-2022 Lymphocytes/100 WBC (Bld) 32.6 % 19-41 [facility] Blood monocytes/100 leukocyt esOrdered By: Dr. Bhakta on 02-05-2022 Monocytes/100 WBC (Bld) 7.6 % 0-10 [facility] Blood platelet mean volumeOr dered By: Dr. Bhakta on 02-05-2022 Platelet mean volume (Bld) [Entitic vol] 10.1 fL 6.2-12.0 [facility] Determination of erythrocyte mean corpuscular volume (MCV)Ordered By: Dr. Bhakta on 02-05-2022 MCV (RBC) [Entitic vol] 91.9 fL 80-94 [facility] Hematocrit Auto (Bld) [Volum e fraction]Ordered By: Dr. Bhakta on 02-05-2022 Hematocrit (Bld) [Volume fraction] 36.5 % 40-54 [facility] Laboratory - Chemistry and C hemistry - challengeOrdered By: Dr. Bhakta on 02-05-2022 ALP [Catalytic activity/Vol] 84 U/L 45-117 [facility] ALT [Catalytic activity/Vol] 22 U/L 16-61 [facility] CO2 [Moles/Vol] 25.0 mmol/L 21.0-32.0 [facility] Globulin (S) [Mass/Vol] 4.0 g/dL 2.2-4.2 [facility] Urea nitrogen/Creatinine [Mass ratio] 18.2 mg/mg 10-20 [facility] Laboratory - Hematology and Cell countsOrdered By: Dr. Bhakta on 02-05-2022 Erythrocyte distribution width (RBC) [Entitic vol] 45.8 fL 35.1-43.9 [facility] Erythrocyte distribution width (RBC) [Ratio] 13.5 % 11.6-14.6 [facility] Immature granulocytes/100 WBC (Bld) 0.400 % 0.0-0.9 [facility] Comment on above: IG% - Immature Granu locytes (promyelocytes, myelocytes and metamyelocytes) > 1% indicates that a LEFT SHIFT is Present. MCH (RBC) [Entitic mass] 31.0 pg 27.0-32.0 [facility] Nucleated RBC/100 WBC (Bld) [Ratio] 0 % 0-5 [facility] MCHC Auto (RBC) [Mass/Vol]Or dered By: Dr. Bhakta on 02-05-2022 MCHC (RBC) [Mass/Vol] 33.7 g/dL 32-36 [facility] No Panel InformationOrdered By: Dr. Bhakta on 02-05-2022 Estimated GFR (MDRD) Amer 59 mL/min >60 [facility] Comment on above: GFR Calc Estimated GFR (MDRD) Non-Af Amer 48 mL/min >60 [facility] Comment on above: Non- GFR Calc Thyroid Stimulating Hormone (TSH) 2.78 uIU/mL 0.358-3.74 [facility] Vitamin D 25-Hydroxy 74.6 ng/mL [facility] Comment on above: Vitamin D 25(OH) Sta tus Range Deficiency <20 ng/mL (50nmol/L) Insufficiency 20 - 30 ng/mL (50 - 75 nmol/L) Sufficiency 30 - 100 ng/mL (75 - 250 nmol/L) Toxicity >100 ng/mL (>250 nmol/L) Platelets bldOrdered By: Dr. Bhakta on 02-05-2022 Platelets (Bld) [#/Vol] 151 10*3/uL 150-450 [facility] Serum or plasma albumin keven urement (mass/volume)Ordered By: Dr. Bhakta on 02-05-2022 Albumin [Mass/Vol] 3.3 g/dL 3.2-5.0 [facility] Serum or plasma albumin/glob ulin mass ratioOrdered By: Dr. Bhakta on 02-05-2022 Albumin/Globulin [Mass ratio] 0.8 {ratio} 0.9-2.4 [facility] Serum or plasma calcium keven urement (mass/volume)Ordered By: Dr. Bhakta on 02-05-2022 Calcium [Mass/Vol] 8.3 mg/dL 8.5-10.1 [facility] Serum or plasma creatinine m easurement (mass/volume)Ordered By: Dr. Bhakta on 02-05-2022 Creatinine [Mass/Vol] 1.48 mg/dL 0.70-1.30 [facility] Comment on above: The validity of the calculated GFR & GFRAA in patients over 70 years has not been determined. Clinical correlation is essential. Serum or plasma urea nitroge n measurement (mass/volume)Ordered By: Dr. Bhakta on 02-05-2022 Urea nitrogen [Mass/Vol] 27 mg/dL 7-18 [facility] Thin prep Papanicolaou smear with manual screeningOrdered By: Dr. Bhakta on 02-05-2022 Thin prep Papanicolaou smear with manual screening 27 U/L 15-37 [facility] Thin prep Papanicolaou smear with manual screening 8 5-15 [facility] No Panel Informationon 12-10 Methicillin-Resist S.aureus DNA PCR Negative Negative [facility] Work Phone: Staphylococcus aureus DNA de tection by probe and target amplification methodon 12-10-2021 S. aureus DNA VISHAL+probe Ql (Unsp spec) Negative Negative [facility] Work Phone: Absolute lymphocyte counton 10-29-2021 Lymphocytes Auto (Unsp spec) [#/Vol] 1.72 10*3/uL 0.83-4.51 [facility] Work Phone: Basophil percentageon 2021 Basophils/100 WBC (Bld) 0.6 % 0-1 [facility] Work Phone: Bilirubin [Mass/Vol] 0.40 mg/dL 0.20-1.00 [facility] Work Phone: Comment on above: For patients on eltr ombopag therapy, use of Dimension Taylor TBIL is not recommended. Chloride [Moles/Vol] 105 mmol/L 98-107 [facility] Work Phone: Eosinophils/100 WBC (Bld) 3.4 % 0-5 [facility] Work Phone: Glucose [Mass/Vol] 96 mg/dL 74-106 [facility] Work Phone: Neutrophils (Bld) [#/Vol] 4.3 10*3/uL 2.0-7.7 [facility] Work Phone: Neutrophils/100 WBC (Bld) 63.7 % 47-70 [facility] Work Phone: Potassium [Moles/Vol] 4.4 mmol/L 3.5-5.1 [facility] Work Phone: Protein [Mass/Vol] 7.9 g/dL 6.4-8.2 [facility] Work Phone: Sodium [Moles/Vol] 138 mmol/L 136-145 [facility] Work Phone: Testosterone [Mass/Vol] 329.80 ng/dL [facility] Work Phone: Comment on above: CENTRAL 90% REFERENC E RANGES MALE AGE <50 197.44 - 669.58 ng/dL MALE AGE > or = 50 187.72 - 684.19 ng/dL FEMALE AGE <50 8.38 - 35.01 ng/dL FEMALE AGE > or = 50 <7.00 - 35.92 ng/dL Effective as of 12/11/20 WBC (Bld) [#/Vol] 6.7 10*3/uL 4.4-11.0 [facility] Work Phone: Blood erythrocytes count (nu mber/volume)on 10-29-2021 RBC (Bld) [#/Vol] 4.33 10*6/uL 4.6-6.2 [facility] Work Phone: Blood hemoglobin measurement (mass/volume)on 10-29-2021 Hemoglobin (Bld) [Mass/Vol] 12.8 g/dL 13.0-16.5 [facility] Work Phone: Blood lymphocytes/100 leukoc yteson 10-29-2021 Lymphocytes/100 WBC (Bld) 25.6 % 19-41 [facility] Work Phone: Blood monocytes/100 leukocyt eson 10-29-2021 Monocytes/100 WBC (Bld) 6.4 % 0-10 [facility] Work Phone: Blood platelet mean volumeon 10-29-2021 Platelet mean volume (Bld) [Entitic vol] 10.9 fL 6.2-12.0 [facility] Work Phone: Determination of erythrocyte mean corpuscular volume (MCV)on 10-29-2021 MCV (RBC) [Entitic vol] 89.4 fL 80-94 [facility] Work Phone: Hematocrit Auto (Bld) [Volum e fraction]on 10-29-2021 Hematocrit (Bld) [Volume fraction] 38.7 % 40-54 [facility] Work Phone: Laboratory - Chemistry and C hemistry - challengeon 10-29-2021 ALP [Catalytic activity/Vol] 88 U/L 45-117 [facility] Work Phone: ALT [Catalytic activity/Vol] 26 U/L 16-61 [facility] Work Phone: CO2 [Moles/Vol] 29.0 mmol/L 21.0-32.0 [facility] Work Phone: Globulin (S) [Mass/Vol] 4.3 g/dL 2.2-4.2 [facility] Work Phone: Urea nitrogen/Creatinine [Mass ratio] 13.4 mg/mg 10-20 [facility] Work Phone: Laboratory - Hematology and Cell countson 10-29-2021 Erythrocyte distribution width (RBC) [Entitic vol] 43.2 fL 35.1-43.9 [facility] Work Phone: Erythrocyte distribution width (RBC) [Ratio] 13.2 % 11.6-14.6 [facility] Work Phone: Immature granulocytes/100 WBC (Bld) 0.300 % 0.0-0.9 [facility] Work Phone: Comment on above: IG% - Immature Granu locytes (promyelocytes, myelocytes and metamyelocytes) > 1% indicates that a LEFT SHIFT is Present. MCH (RBC) [Entitic mass] 29.6 pg 27.0-32.0 [facility] Work Phone: Nucleated RBC/100 WBC (Bld) [Ratio] 0 % 0-5 [facility] Work Phone: MCHC Auto (RBC) [Mass/Vol]on 10-29-2021 MCHC (RBC) [Mass/Vol] 33.1 g/dL 32-36 [facility] Work Phone: No Panel Informationon 10-29 Estimated GFR (MDRD) Amer 55 mL/min >60 [facility] Work Phone: Comment on above: GFR Calc Estimated GFR (MDRD) Non-Af Amer 45 mL/min >60 [facility] Work Phone: Comment on above: Non- GFR Calc Thyroid Stimulating Hormone (TSH) 2.99 uIU/mL 0.358-3.74 [facility] Work Phone: Vitamin D 25-Hydroxy 74.5 ng/mL [facility] Work Phone: Comment on above: Vitamin D 25(OH) Sta tus Range Deficiency <20 ng/mL (50nmol/L) Insufficiency 20 - 30 ng/mL (50 - 75 nmol/L) Sufficiency 30 - 100 ng/mL (75 - 250 nmol/L) Toxicity >100 ng/mL (>250 nmol/L) Platelets bldon 10-29-2021 Platelets (Bld) [#/Vol] 176 10*3/uL 150-450 [facility] Work Phone: Serum or plasma albumin keven urement (mass/volume)on 10-29-2021 Albumin [Mass/Vol] 3.6 g/dL 3.2-5.0 [facility] Work Phone: Serum or plasma albumin/glob ulin mass ratioon 10-29-2021 Albumin/Globulin [Mass ratio] 0.8 {ratio} 0.9-2.4 [facility] Work Phone: Serum or plasma calcium keven urement (mass/volume)on 10-29-2021 Calcium [Mass/Vol] 8.6 mg/dL 8.5-10.1 [facility] Work Phone: Serum or plasma creatinine m easurement (mass/volume)on 10-29-2021 Creatinine [Mass/Vol] 1.57 mg/dL 0.70-1.30 [facility] Work Phone: Comment on above: The validity of the calculated GFR & GFRAA in patients over 70 years has not been determined. Clinical correlation is essential. Serum or plasma urea nitroge n measurement (mass/volume)on 10-29-2021 Urea nitrogen [Mass/Vol] 21 mg/dL 7-18 [facility] Work Phone: Thin prep Papanicolaou smear with manual screeningon 10-29-2021 Thin prep Papanicolaou smear with manual screening 26 U/L 15-37 [facility] Work Phone: Thin prep Papanicolaou smear with manual screening 4 5-15 [facility] Work Phone: No Panel Informationon 09-11 Thyroid Stimulating Hormone (TSH) 2.98 uIU/mL 0.358-3.74 [facility] Work Phone: Absolute lymphocyte counton 07-25-2021 Lymphocytes Auto (Unsp spec) [#/Vol] 1.42 10*3/uL 0.83-4.51 [facility] Work Phone: Basophil percentageon 2021 Basophils/100 WBC (Bld) 0.7 % 0-1 [facility] Work Phone: Bilirubin [Mass/Vol] 0.40 mg/dL 0.20-1.00 [facility] Work Phone: Comment on above: For patients on eltr ombopag therapy, use of Dimension Taylor TBIL is not recommended. Chloride [Moles/Vol] 106 mmol/L 98-107 [facility] Work Phone: Eosinophils/100 WBC (Bld) 4.7 % 0-5 [facility] Work Phone: Glucose [Mass/Vol] 181 mg/dL 74-106 [facility] Work Phone: Comment on above: Fasting Glucose resu lt greater than or equal to 126 mg/dL suggests DIABETES MELLITUS per A.D.A. criteria. Neutrophils (Bld) [#/Vol] 3.6 10*3/uL 2.0-7.7 [facility] Work Phone: Neutrophils/100 WBC (Bld) 62.9 % 47-70 [facility] Work Phone: Potassium [Moles/Vol] 4.4 mmol/L 3.5-5.1 [facility] Work Phone: Protein [Mass/Vol] 7.7 g/dL 6.4-8.2 [facility] Work Phone: Sodium [Moles/Vol] 138 mmol/L 136-145 [facility] Work Phone: Testosterone [Mass/Vol] 229.00 ng/dL [facility] Work Phone: Comment on above: CENTRAL 90% REFERENC E RANGES MALE AGE <50 197.44 - 669.58 ng/dL MALE AGE > or = 50 187.72 - 684.19 ng/dL FEMALE AGE <50 8.38 - 35.01 ng/dL FEMALE AGE > or = 50 <7.00 - 35.92 ng/dL Effective as of 12/11/20 WBC (Bld) [#/Vol] 5.7 10*3/uL 4.4-11.0 [facility] Work Phone: Blood erythrocytes count (nu mber/volume)on 07-25-2021 RBC (Bld) [#/Vol] 3.95 10*6/uL 4.6-6.2 [facility] Work Phone: Blood hemoglobin measurement (mass/volume)on 07-25-2021 Hemoglobin (Bld) [Mass/Vol] 12.1 g/dL 13.0-16.5 [facility] Work Phone: Blood lymphocytes/100 leukoc yteson 07-25-2021 Lymphocytes/100 WBC (Bld) 24.8 % 19-41 [facility] Work Phone: Blood monocytes/100 leukocyt eson 07-25-2021 Monocytes/100 WBC (Bld) 6.6 % 0-10 [facility] Work Phone: Blood platelet mean volumeon 07-25-2021 Platelet mean volume (Bld) [Entitic vol] 10.3 fL 6.2-12.0 [facility] Work Phone: Determination of erythrocyte mean corpuscular volume (MCV)on 07-25-2021 MCV (RBC) [Entitic vol] 89.1 fL 80-94 [facility] Work Phone: Hematocrit Auto (Bld) [Volum e fraction]on 07-25-2021 Hematocrit (Bld) [Volume fraction] 35.2 % 40-54 [facility] Work Phone: Laboratory - Chemistry and C hemistry - challengeon 07-25-2021 ALP [Catalytic activity/Vol] 79 U/L 45-117 [facility] Work Phone: ALT [Catalytic activity/Vol] 21 U/L 16-61 [facility] Work Phone: CO2 [Moles/Vol] 28.0 mmol/L 21.0-32.0 [facility] Work Phone: Globulin (S) [Mass/Vol] 4.2 g/dL 2.2-4.2 [facility] Work Phone: Urea nitrogen/Creatinine [Mass ratio] 20.6 mg/mg 10-20 [facility] Work Phone: Laboratory - Hematology and Cell countson 07-25-2021 Erythrocyte distribution width (RBC) [Entitic vol] 41.4 fL 35.1-43.9 [facility] Work Phone: Erythrocyte distribution width (RBC) [Ratio] 12.7 % 11.6-14.6 [facility] Work Phone: Immature granulocytes/100 WBC (Bld) 0.300 % 0.0-0.9 [facility] Work Phone: Comment on above: IG% - Immature Granu locytes (promyelocytes, myelocytes and metamyelocytes) > 1% indicates that a LEFT SHIFT is Present. MCH (RBC) [Entitic mass] 30.6 pg 27.0-32.0 [facility] Work Phone: Nucleated RBC/100 WBC (Bld) [Ratio] 0 % 0-5 [facility] Work Phone: MCHC Auto (RBC) [Mass/Vol]on 07-25-2021 MCHC (RBC) [Mass/Vol] 34.4 g/dL 32-36 [facility] Work Phone: No Panel Informationon 07-25 Estimated GFR (MDRD) Amer 54 mL/min >60 [facility] Work Phone: Comment on above: GFR Calc Estimated GFR (MDRD) Non-Af Amer 44 mL/min >60 [facility] Work Phone: Comment on above: Non- GFR Calc Thyroid Stimulating Hormone (TSH) 4.71 uIU/mL 0.358-3.74 [facility] Work Phone: Vitamin D 25-Hydroxy 65.3 ng/mL [facility] Work Phone: Comment on above: Vitamin D 25(OH) Sta tus Range Deficiency <20 ng/mL (50nmol/L) Insufficiency 20 - 30 ng/mL (50 - 75 nmol/L) Sufficiency 30 - 100 ng/mL (75 - 250 nmol/L) Toxicity >100 ng/mL (>250 nmol/L) Platelets bldon 07-25-2021 Platelets (Bld) [#/Vol] 187 10*3/uL 150-450 [facility] Work Phone: Serum or plasma albumin keven urement (mass/volume)on 07-25-2021 Albumin [Mass/Vol] 3.5 g/dL 3.2-5.0 [facility] Work Phone: Serum or plasma albumin/glob ulin mass ratioon 07-25-2021 Albumin/Globulin [Mass ratio] 0.8 {ratio} 0.9-2.4 [facility] Work Phone: Serum or plasma calcium keven urement (mass/volume)on 07-25-2021 Calcium [Mass/Vol] 8.9 mg/dL 8.5-10.1 [facility] Work Phone: Serum or plasma creatinine m easurement (mass/volume)on 07-25-2021 Creatinine [Mass/Vol] 1.60 mg/dL 0.70-1.30 [facility] Work Phone: Comment on above: The validity of the calculated GFR & GFRAA in patients over 70 years has not been determined. Clinical correlation is essential. Serum or plasma urea nitroge n measurement (mass/volume)on 07-25-2021 Urea nitrogen [Mass/Vol] 33 mg/dL 7-18 [facility] Work Phone: Thin prep Papanicolaou smear with manual screeningon 07-25-2021 Thin prep Papanicolaou smear with manual screening 19 U/L 15-37 [facility] Work Phone: Thin prep Papanicolaou smear with manual screening 4 5-15 [facility] Work Phone: 25-Hydroxy D2+D3on 8 25-Hydroxy D Total 48.5 ng/mL Normal 30.0-100.0 [facility] Comment on above: Performed By: #### D 2D3 ####[facility] [address] [place], [place] [phone]#### LIPB, TSH, CMP, CBCDIF ####[facility] LaboratoriesRoutine [address], [place] [phone] 25-Hydroxy D2 <4.0 Normal [facility] Comment on above: Performed By: #### D 2D3 ####[facility] [place] [phone]#### LIPB, TSH, CMP, CBCDIF ####[facility] Stg[address]CK[address] [place] [phone] 25-Hydroxy D3 48.5 ng/mL Normal [facility] Comment on above: Performed By: #### D 2D3 ####[facility] [place] [phone]#### LIPB, TSH, CMP, CBCDIF ####[place] [address] [place] [phone] CBC and Differentialon 01-08 Abs Baso 0.03 k/uL Normal <0.11 [facility] Comment on above: Performed By: #### D 2D3 ####[facility] [place] [phone]#### LIPB, TSH, CMP, CBCDIF ####[facility] [address] [place] [phone] Abs Bonner 0.35 k/uL Normal <0.87 [facility] Comment on above: Performed By: #### D 2D3 ####[facility] [place] [phone]#### LIPB, TSH, CMP, CBCDIF ####[facility] [address]CK[address] [place] [phone] Abs Neut 3.14 k/uL Normal 1.45-7.50 [facility] Comment on above: Performed By: #### D 2D3 ####[facility] [place] [phone]#### LIPB, TSH, CMP, CBCDIF ####[facility] Fgj[address] AveCMelissa [place] [phone] Absolute nRBC <0.01 Normal <0.01 [facility] Comment on above: Performed By: #### D 2D3 ####[facility]CK[address] [place] [phone]#### LIPB, TSH, CMP, CBCDIF ####[facility] [address] AveClevelAnn Ville [phone] Basophils/100 WBC Auto (Bld) 0.5 % Normal [facility] Comment on above: Performed By: #### D 2D3 ####[facility]CK[address] [place] [phone]#### LIPB, TSH, CMP, CBCDIF ####[facility] [address]by[address]CKaren [place] [phone] DTYPE ADIFF Normal [facility] Comment on above: Performed By: #### D 2D3 ####[facility]CK[address] [place] [phone]#### LIPB, TSH, CMP, CBCDIF ####[facility] [address]CK[address] [place] [phone] Eosinophils Auto #/vol (Bld) 0.19 10*3/uL Normal <0.46 [facility] Comment on above: Performed By: #### D 2D3 ####[facility]CK[address] [place] [phone]#### LIPB, TSH, CMP, CBCDIF ####[facility] Xvg[address]CKaren [place] [phone] Eosinophils/100 WBC Auto (Bld) 3.5 % Normal [facility] Comment on above: Performed By: #### D 2D3 ####[facility] [place] [phone]#### LIPB, TSH, CMP, CBCDIF ####[facility] [address] [place], [place] [address]d AvMiguel [place] [phone] Erythrocyte distribution width Auto Ratio (RBC) 13.3 % Normal 11.5-15.0 [facility] Comment on above: Performed By: #### D 2D3 ####[facility] AvMig[place] [phone]#### LIPB, TSH, CMP, CBCDIF ####[place] [phone] Hematocrit Auto Volume Fraction (Bld) 38.8 % Low 39.0-51.0 [facility] Comment on above: Performed By: #### D 2D3 ####[facility] Av[place] [phone]#### LIPB, TSH, CMP, CBCDIF ####[address] [phone] Hemoglobin mass conc (Bld) 12.6 g/dL Low 13.0-17.0 [facility] Comment on above: Performed By: #### D 2D3 ####[facility] [place], [place] [phone]#### LIPB, TSH, CMP, CBCDIF ####[facility] [address] [place], [place] [address]d [place] [phone] Lymphocytes Auto #/vol (Bld) 1.74 10*3/uL Normal 1.00-4.00 [facility] Comment on above: Performed By: #### D 2D3 ####[facility] [place], [place] [address]d [place] [phone]#### LIPB, TSH, CMP, CBCDIF ####[facility] [place] [phone] Lymphocytes/100 WBC Auto (Bld) 31.9 % Normal [facility] Comment on above: Performed By: #### D 2D3 ####[place] [phone]#### LIPB, TSH, CMP, CBCDIF ####[place] [phone] MCH Auto Entitic mass (RBC) 30.3 pG Normal 26.0-34.0 [facility] Comment on above: Performed By: #### D 2D3 ####[place] [phone]#### LIPB, TSH, CMP, CBCDIF ####[phone] MCHC Auto mass conc (RBC) 32.5 g/dL Normal 30.5-36.0 [facility] Comment on above: Performed By: #### D 2D3 ####[place] [phone]#### LIPB, TSH, CMP, CBCDIF ####[place] [phone] MCV Auto Entitic volume (RBC) 93.3 fL Normal 80.0-100.0 [facility] Comment on above: Performed By: #### D 2D3 ####[facility] [place], [place] [phone]#### LIPB, TSH, CMP, CBCDIF ####[place] [phone] Monocytes/100 WBC Auto (Bld) 6.4 % Normal [facility] Comment on above: Performed By: #### D 2D3 ####[facility] Hospital[facility]istry[address]CK[address] [place] [phone]#### LIPB, TSH, CMP, CBCDIF ####[facility] [address] AveClevelGlade Park, [place] [phone] Neutrophils/100 WBC Auto (Bld) 57.7 % Normal [facility] Comment on above: Performed By: #### D 2D3 ####[facility] Hospital[facility]istry[address]CK[address] [place] [phone]#### LIPB, TSH, CMP, CBCDIF ####[facility] [address]cp[address]CK[address] [place] [phone] NRBCs 0.0 /100 WBC Normal 0 [facility] Comment on above: Performed By: #### D 2D3 ####[facility] Hospital[facility]istry[address]CK[address] [place] [phone]#### LIPB, TSH, CMP, CBCDIF ####[facility] Zkw[address]CK[address] [place] [phone] Platelet mean volume Auto Entitic volume (Bld) 11.1 fL Normal 9.0-12.7 [facility] Comment on above: Performed By: #### D 2D3 ####[facility] Hospital[facility]istry[address] [place] [phone]#### LIPB, TSH, CMP, CBCDIF ####[facility] Cnv[address]CK[address] [place] [phone] Platelets Auto #/vol (Bld) 146 10*3/uL Low 150-400 [facility] Comment on above: Performed By: #### D 2D3 ####[facility] Hospital[facility]istry[address]CK[address] [place] [phone]#### LIPB, TSH, CMP, CBCDIF ####[facility] [address] AveCToomsuba, [place] [phone] RBC Auto #/vol (Bld) 4.16 10*6/uL Low 4.20-6.00 [facility] Reference Lab Comment on above: Performed By: #### D 2D3 ####[facility]CToom[address], [place] [phone]#### LIPB, TSH, CMP, CBCDIF ####[facility] Nuc[address] AveCToomsub[place], [place] [phone] WBC Auto #/vol (Bld) 5.46 10*3/uL Normal 3.70-11.00 [facility] Reference Lab Comment on above: Performed By: #### D 2D3 ####[facility]CToomsub[address], [place] [phone]#### LIPB, TSH, CMP, CBCDIF ####[facility] [address] [place], [place] [phone] Comp Metabolic Panelon 01-08 Albumin mass conc 4.3 g/dL Normal 3.9-4.9 [facility] Reference Lab Comment on above: Performed By: #### D 2D3 ####[facility]CToomsub[address], [place] [phone]#### LIPB, TSH, CMP, CBCDIF ####[facility] [address] AveCToomsuba, [place] [phone] ALP enzyme act/vol 67 U/L Normal 36-108 [facility] Reference Lab Comment on above: Performed By: #### D 2D3 ####[facility]CToom[place], [place] [phone]#### LIPB, TSH, CMP, CBCDIF ####[facility] Jfm[address] [phone] ALT enzyme act/vol 19 U/L Normal 10-54 [facility] Reference Lab Comment on above: Performed By: #### D 2D3 ####[facility] Hospital[facility]istry[address] [place] [phone]#### LIPB, TSH, CMP, CBCDIF ####[facility] [address] [place] [phone] Anion gap 3 molar conc 13 mmol/L Normal 9-18 [facility] Reference Lab Comment on above: Performed By: #### D 2D3 ####[facility] Hospital[facility]istry[address] [place] [phone]#### LIPB, TSH, CMP, CBCDIF ####[facility] I[address] [place], [place] [phone] AST enzyme act/vol 34 U/L Normal 14-40 [facility] Reference Lab Comment on above: Performed By: #### D 2D3 ####[facility] Hospital[facility]istry[address] [place] [phone]#### LIPB, TSH, CMP, CBCDIF ####[facility] [address] [place] [phone] Bilirubin Ql (U) 0.7 mg/dL Normal 0.2-1.3 [facility] Reference Lab Comment on above: Performed By: #### D 2D3 ####[facility] Hospital[facility]istry[address] [place] [phone]#### LIPB, TSH, CMP, CBCDIF ####[facility] Fvr0128 [place] [phone] Calcium mass conc 9.5 mg/dL Normal 8.5-10.2 [facility] Reference Lab Comment on above: Performed By: #### D 2D3 ####[facility] Hospital[facility]istry[address]CToom[place], [place] [phone]#### LIPB, TSH, CMP, CBCDIF ####[facility] Und[address] AveCToomsuba, [place] [phone] Chloride molar conc 101 mmol/L Normal 97-105 [facility] Reference Lab Comment on above: Performed By: #### D 2D3 ####[facility] AveCKaren [place] [phone]#### LIPB, TSH, CMP, CBCDIF ####[facility] Chl[address] AveCKaren [place] [phone] CO2 molar conc 27 mmol/L Normal 22-30 [facility] Reference Lab Comment on above: Performed By: #### D 2D3 ####[facility] AveCKaren [place] [phone]#### LIPB, TSH, CMP, CBCDIF ####[facility] Aqz[address] AveCToomsuba, [place] [phone] Creatinine mass conc 1.40 mg/dL High 0.73-1.22 [facility] Reference Lab Comment on above: Performed By: #### D 2D3 ####[facility]CToom[place], [place] [phone]#### LIPB, TSH, CMP, CBCDIF ####[facility] Grz[address] AveCToomsuba, [place] [phone] eGFR- Amer. 59 Normal [facility] Reference Lab Comment on above: Performed By: #### D 2D3 ####[facility]CToom[place], [place] [phone]#### LIPB, TSH, CMP, CBCDIF ####[facility] Vyc[address] AveCToomsuba, [place] [phone] GFR/1.73 sq M predicted among non-blacks MDRD vol rate/area (S/P/Bld) 49 . Normal [facility] Reference Lab Comment on above: Performed By: #### D 2D3 ####[facility] HospitalChemistry[address] [place] [phone]#### LIPB, TSH, CMP, CBCDIF ####[facility] Foq5046 [place] [phone] Glucose mass conc 116 mg/dL High 74-99 [facility] Reference Lab Comment on above: Performed By: #### D 2D3 ####[facility] HospitalChemistry[address] [place] [phone]#### LIPB, TSH, CMP, CBCDIF ####[facility] Uzj0592 [place] [phone] Potassium molar conc 4.1 mmol/L Normal 3.7-5.1 [facility] Reference Lab Comment on above: Performed By: #### D 2D3 ####[facility] HospitalChemistry[address] [place] [phone]#### LIPB, TSH, CMP, CBCDIF ####[facility] Eoz4412 [place] [phone] Protein mass conc 7.7 g/dL Normal 6.3-8.0 [facility] Reference Lab Comment on above: Performed By: #### D 2D3 ####[facility] HospitalChemistry[address] [place] [phone]#### LIPB, TSH, CMP, CBCDIF ####[facility] Iuw6233 [place] [phone] Sodium molar conc 141 mmol/L Normal 136-144 [facility] Reference Lab Comment on above: Performed By: #### D 2D3 ####[facility] IqkhgrgakkpnFdbiwdoxj[address] AveClevelAnn [place]ille [phone]#### LIPB, TSH, CMP, CBCDIF ####[facility] Nxx[address] AveClevelAnn [place] [phone] Urea nitrogen mass conc 13 mg/dL Normal 9-24 C [facility] Reference Lab Comment on above: Performed By: #### D 2D3 ####[facility] HospitalChemistry[address] AveClevelAnn [place] [phone]#### LIPB, TSH, CMP, CBCDIF ####[facility] Vbx[address] AveCKaren [place] [phone] Lipid Panel, [facility] 018 Cholesterol in HDL mass conc 38 mg/dL Low >39 [facility] Reference Lab Comment on above: Performed By: #### D 2D3 ####[facility] HospitalChemistry[address] AveClevelAnn [place] [phone]#### LIPB, TSH, CMP, CBCDIF ####[facility] Nzj[address] AveCKaren [place] [phone] Cholesterol in LDL mass conc 42 mg/dL Normal <100 [facility] Reference Lab Comment on above: Performed By: #### D 2D3 ####[facility] HospitalChemistry[address] AveCKaren [place] [phone]#### LIPB, TSH, CMP, CBCDIF ####[facility] Lyq[address] AveClevelAnn [place] [phone] Cholesterol in VLDL mass conc 17 mg/dL Normal <30 [facility] Reference Lab Comment on above: Performed By: #### D 2D3 ####[facility] HospitalChemistry[address] AveCKaren [place] [phone]#### LIPB, TSH, CMP, CBCDIF ####[facility] Fvf[phone] Cholesterol mass conc 97 mg/dL Normal <200 [facility] Reference Lab Comment on above: Performed By: #### D 2D3 ####[facility] HospitalChemistry[address] AveCKaren [place] [phone]#### LIPB, TSH, CMP, CBCDIF ####[facility] Amm[address] AveCKaren [place] [phone] LDL:HDL Ratio 1.11 Normal <2.54 [facility] Reference Lab Comment on above: Performed By: #### D 2D3 ####[facility] HospitalChemistry[address] AveCKaren [place] [phone]#### LIPB, TSH, CMP, CBCDIF ####[facility] Nhq[address] AvMiguel [place] [phone] Non HDL Cholesterol 59 mg/dL Normal <130 [facility] Reference Lab Comment on above: Performed By: #### D 2D3 ####[facility] HospitalChemistry[address] AveCKaren [place] [phone]#### LIPB, TSH, CMP, CBCDIF ####[facility] Jpr[address] AveCKaren [place] [phone] TC:HDL Ratio 2.55 Normal <5.10 [facility] Reference Lab Comment on above: Performed By: #### D 2D3 ####[facility] HospitalChemistry[address] AveCKaren [place] [phone]#### LIPB, TSH, CMP, CBCDIF ####[facility] Wof[address] AveCKaren [place] [phone] Triglyceride mass conc 84 mg/dL Normal <150 [facility] Reference Lab Comment on above: Performed By: #### D 2D3 ####[facility] HospitalChemistry[address] AveCKaren [place] [phone]#### LIPB, TSH, CMP, CBCDIF ####[facility] Geh[address] [place], [place] [phone] Fasting Time UN Normal [facility] Reference Lab Comment on above: Performed By: #### D 2D3 ####[place] [phone]#### LIPB, TSH, CMP, CBCDIF ####[place] [phone] TSHon 01-08-2018 Thyrotropin Qn 1.970 uU/mL Normal 0.400-5.500 [facility] Reference Lab Comment on above: Performed By: #### D 2D3 ####[place] [phone]#### LIPB, TSH, CMP, CBCDIF ####[address] [phone] 25-Hydroxy D2+D3on 8 25-Hydroxy D Total 50.7 ng/mL Normal 30.0-100.0 [facility] Reference Lab Comment on above: Performed By: #### C BCDIF, TSH, CMP ####[place] [phone]#### D2D3 ####[place] [phone] 25-Hydroxy D2 <4.0 Normal [facility] Reference Lab Comment on above: Performed By: #### C BCDIF, TSH, CMP ####[facility] [address] [place], [place] [phone]#### D2D3 ####[place] [phone] 25-Hydroxy D3 50.7 ng/mL Normal [facility] Reference Lab Comment on above: Performed By: #### C BCDIF, TSH, CMP ####[facility] Tfe[phone]#### D2D3 ####[facility] AveCKaren [place] [phone] CBC and Differentialon 10-09 Abs Baso 0.03 k/uL Normal <0.11 [facility] Reference Lab Comment on above: Performed By: #### C BCDIF, TSH, CMP ####[facility] Fgz[phone]#### D2D3 ####[facility] AveCKaren [place] [phone] Abs Bonner 0.53 k/uL Normal <0.87 [facility] Reference Lab Comment on above: Performed By: #### C BCDIF, TSH, CMP ####[facility] Wje[phone]#### D2D3 ####[facility] AveCKaren [place] [phone] Abs Neut 4.96 k/uL Normal 1.45-7.50 [facility] Reference Lab Comment on above: Performed By: #### C BCDIF, TSH, CMP ####[facility] Djc[address] AveCKaren [place] [phone]#### D2D3 ####[facility]CK[address] [place] [phone] Absolute nRBC <0.01 Normal <0.01 [facility] Reference Lab Comment on above: Performed By: #### C BCDIF, TSH, CMP ####[facility] Her[address] AveCKaren [place] [phone]#### D2D3 ####[facility]CK[address] [place] [phone] Basophils/100 WBC Auto (Bld) 0.4 % Normal [facility] Reference Lab Comment on above: Performed By: #### C BCDIF, TSH, CMP ####[facility] Uqk[address] AveCKaren [place] [phone]#### D2D3 ####[facility]istry[phone] DTYPE ADIFF Normal [facility] Reference Lab Comment on above: Performed By: #### C BCDIF, TSH, CMP ####[facility] Vhl[address] AveCKaren [place] [phone]#### D2D3 ####[facility]CK[address] [place] [phone] Eosinophils Auto #/vol (Bld) 0.13 10*3/uL Normal <0.46 [facility] Reference Lab Comment on above: Performed By: #### C BCDIF, TSH, CMP ####[facility] Zgd[phone]#### D2D3 ####[facility] AveCKaren [place] [phone] Eosinophils/100 WBC Auto (Bld) 1.7 % Normal [facility] Reference Lab Comment on above: Performed By: #### C BCDIF, TSH, CMP ####[facility] Oex[address] AveCKaren [place] [phone]#### D2D3 ####[facility]CK[address] [place] [phone] Erythrocyte distribution width Auto Ratio (RBC) 13.4 % Normal 11.5-15.0 [facility] Reference Lab Comment on above: Performed By: #### C BCDIF, TSH, CMP ####[facility] Avl[address] AveCToomsuba, [place] [phone]#### D2D3 ####[facility] AveCToomsuba, [place] [phone] Hematocrit Auto Volume Fraction (Bld) 39.7 % Normal 39.0-51.0 [facility] Reference Lab Comment on above: Performed By: #### C BCDIF, TSH, CMP ####[facility] Nhi[address] AveCKaren [place] [phone]#### D2D3 ####[facility]CToomsuba, [place] [phone] Hemoglobin mass conc (Bld) 12.7 g/dL Low 13.0-17.0 [facility] Reference Lab Comment on above: Performed By: #### C BCDIF, TSH, CMP ####[facility] Loj[address] AveCToomsuba, [place] [phone]#### D2D3 ####[facility] AveCKaren [place] [phone] Lymphocytes Auto #/vol (Bld) 1.95 10*3/uL Normal 1.00-4.00 [facility] Reference Lab Comment on above: Performed By: #### C BCDIF, TSH, CMP ####[facility] Akh[address] AveCToomsuba, [place] [phone]#### D2D3 ####[facility]CToomsuba, [place] [phone] Lymphocytes/100 WBC Auto (Bld) 25.7 % Normal [facility] Reference Lab Comment on above: Performed By: #### C BCDIF, TSH, CMP ####[facility] Lvg[address] AveCToomsuba, [place] [phone]#### D2D3 ####[facility]istry[address] AveCKaren [place] [phone] MCH Auto Entitic mass (RBC) 30.2 pG Normal 26.0-34.0 [facility] Reference Lab Comment on above: Performed By: #### C BCDIF, TSH, CMP ####[facility] Vii[address] AveCKaren [place] [phone]#### D2D3 ####[facility]istry[address]CK[address] [place] [phone] MCHC Auto mass conc (RBC) 32.0 g/dL Normal 30.5-36.0 [facility] Reference Lab Comment on above: Performed By: #### C BCDIF, TSH, CMP ####[place] [address] AveCKaren [place] [phone]#### D2D3 ####[facility]CK[address] [place] [phone] MCV Auto Entitic volume (RBC) 94.5 fL Normal 80.0-100.0 [facility] Reference Lab Comment on above: Performed By: #### C BCDIF, TSH, CMP ####[place] [address]CKaren [place] [phone]#### D2D3 ####[facility]CK[address] [place] [phone] Monocytes/100 WBC Auto (Bld) 7.0 % Normal [facility] Reference Lab Comment on above: Performed By: #### C BCDIF, TSH, CMP ####[facility] Wko[address] AveCKaren [place] [phone]#### D2D3 ####[facility]CK[address] [place] [phone] Neutrophils/100 WBC Auto (Bld) 65.2 % Normal [facility] Reference Lab Comment on above: Performed By: #### C BCDIF, TSH, CMP ####[facility] Vbr[address] AveCToomsuba, [place] [phone]#### D2D3 ####[facility]CToomsub[place], [place] [phone] NRBCs 0.0 /100 WBC Normal 0 [facility] Reference Lab Comment on above: Performed By: #### C BCDIF, TSH, CMP ####[facility] Xsp[address] AveCToomsuba, [place] [phone]#### D2D3 ####[facility]CToomsuba, [place] [phone] Platelet mean volume Auto Entitic volume (Bld) 10.9 fL Normal 9.0-12.7 [facility] Reference Lab Comment on above: Performed By: #### C BCDIF, TSH, CMP ####[facility] Ozb[address] AveCKaren [place] [phone]#### D2D3 ####[facility]CK[address] [place] [phone] Platelets Auto #/vol (Bld) 166 10*3/uL Normal 150-400 [facility] Reference Lab Comment on above: Performed By: #### C BCDIF, TSH, CMP ####[facility] Bik[address] AveCKaren [place] [phone]#### D2D3 ####[facility]istry[address] AveCToomsuba, [place] [phone] RBC Auto #/vol (Bld) 4.20 10*6/uL Normal 4.20-6.00 [facility] Reference Lab Comment on above: Performed By: #### C BCDIF, TSH, CMP ####[facility] Pdu[address] AveCKaren [place] [phone]#### D2D3 ####[facility]istry[address] AveCToomsuba, [place] [phone] WBC Auto #/vol (Bld) 7.60 10*3/uL Normal 3.70-11.00 [facility] Reference Lab Comment on above: Performed By: #### C BCDIF, TSH, CMP ####[facility] Gaq[address] AveCKaren [place] [phone]#### D2D3 ####[facility] AveCToomsuba, [place] [phone] Comp Metabolic Panelon 10-09 Albumin mass conc 4.1 g/dL Normal 3.9-4.9 [facility] Reference Lab Comment on above: Performed By: #### C BCDIF, TSH, CMP ####[facility] Ekx[address]397 [address] AveCKaren [place] [phone]#### D2D3 ####[facility]istry[address] AveClevelGlade Park, [place] [phone] ALP enzyme act/vol 55 U/L Normal 36-108 [facility] Reference Lab Comment on above: Performed By: #### C BCDIF, TSH, CMP ####[facility] Niw[address] AveCKaren [place] [phone]#### D2D3 ####[facility]istry[address] AveClevelAnn [place]ille [phone] ALT enzyme act/vol 15 U/L Normal 10-54 [facility] Reference Lab Comment on above: Performed By: #### C BCDIF, TSH, CMP ####[facility] Tra[address] AveCToomsuba, [place] [phone]#### D2D3 ####[facility]istry[address] AveClevelGlade Park, [place] [phone] Anion gap 3 molar conc 14 mmol/L Normal 9-18 [facility] Reference Lab Comment on above: Performed By: #### C BCDIF, TSH, CMP ####[facility] Ltz[address] AveCKaren [place] [phone]#### D2D3 ####[facility] HospitalChemistry[address] AveCKaren [place] [phone] AST enzyme act/vol 27 U/L Normal 14-40 [facility] Reference Lab Comment on above: Performed By: #### C BCDIF, TSH, CMP ####[facility] Www[address] AveCKaren [place] [phone]#### D2D3 ####[facility]istry[address] [place], [place] [address]d AvMiguel [place] [phone] Bilirubin Ql (U) 0.5 mg/dL Normal 0.2-1.3 [facility] Reference Lab Comment on above: Performed By: #### C BCDIF, TSH, CMP ####[facility] Nng[address]307 [address] AveCKaren [place] [phone]#### D2D3 ####[facility]CK[place] [phone] Calcium mass conc 9.5 mg/dL Normal 8.5-10.2 [facility] Reference Lab Comment on above: Performed By: #### C BCDIF, TSH, CMP ####[facility] Dtc[address]772 [address] AveCKaren [place] [phone]#### D2D3 ####[facility]CKaren [place] [phone] Chloride molar conc 104 mmol/L Normal 97-105 [facility] Reference Lab Comment on above: Performed By: #### C BCDIF, TSH, CMP ####[facility] Iwy[address]356 [address] AveCKaren [place] [phone]#### D2D3 ####[facility] HospitalChemistry[address] AveClevelandRodney [place] [phone] CO2 molar conc 24 mmol/L Normal 22-30 [facility] Reference Lab Comment on above: Performed By: #### C BCDIF, TSH, CMP ####[facility] HospitalRoutine Kfa[address] AveClevelandRodney [place] [phone]#### D2D3 ####[facility] HospitalChemistry[address] AveClevelandRodney [place] [phone] Creatinine mass conc 1.28 mg/dL High 0.73-1.22 [facility] Reference Lab Comment on above: Performed By: #### C BCDIF, TSH, CMP ####[facility] Vrn[address] AveClevelAnn [place]ille [phone]#### D2D3 ####[facility]istry[address] AveClevelAnn [place] [phone] eGFR- Amer. >60 Normal [facility] Reference Lab Comment on above: Performed By: #### C BCDIF, TSH, CMP ####[facility] Lli3640 [address] AveClevelAnn [place]ille [phone]#### D2D3 ####[facility]istry[address] AveClevelAnn [place] [phone] GFR/1.73 sq M predicted among non-blacks MDRD vol rate/area (S/P/Bld) 55 . Normal [facility] Reference Lab Comment on above: Performed By: #### C BCDIF, TSH, CMP ####[facility] Qow[address]36 [address] AveCKaren [place] [phone]#### D2D3 ####[facility] HospitalChemistry[address] AveClevelandRodney [place] [phone] Glucose mass conc 93 mg/dL Normal 74-99 [facility] Reference Lab Comment on above: Performed By: #### C BCDIF, TSH, CMP ####[facility] Vmc4354 [address] AveCKaren [place] [phone]#### D2D3 ####[facility]CK[place] [phone] Potassium molar conc 4.6 mmol/L Normal 3.7-5.1 [facility] Reference Lab Comment on above: Performed By: #### C BCDIF, TSH, CMP ####[facility] Pdx[address]37 [address] AveCKaren [place] [phone]#### D2D3 ####[facility]CK[place] [phone] Protein mass conc 7.5 g/dL Normal 6.3-8.0 [facility] Reference Lab Comment on above: Performed By: #### C BCDIF, TSH, CMP ####[facility] Smf[address] AveCKaren [place] [phone]#### D2D3 ####[facility]CKaren [place] [phone] Sodium molar conc 142 mmol/L Normal 136-144 [facility] Reference Lab Comment on above: Performed By: #### C BCDIF, TSH, CMP ####[facility] Yad[address] AveCKaren [place] [phone]#### D2D3 ####[facility]CKaren [place] [phone] Urea nitrogen mass conc 21 mg/dL Normal 9-24 [facility] Reference Lab Comment on above: Performed By: #### C BCDIF, TSH, CMP ####[facility] Vdj[address]34 [address] AveCKaren [place] [phone]#### D2D3 ####[facility]istry[address]00 [place], [place] [phone] TSHon 10-09-2017 Thyrotropin Qn 3.440 uU/mL Normal 0.400-5.500 [facility] Reference Lab Comment on above: Performed By: #### C BCDIF, TSH, CMP ####[facility] LaboratoriesRoutine Pqq[address]3 [place], [place] [phone]#### D2D3 ####[facility] UjgydnrvbifkDbvgrszoy7[address] [place], [phone] [id number] Bacteria identified Cx Nom ( Wound) Wound Culture Staphylococcus lugdunensis [facility] Work Phone: Wound Culture Actinomyces neuii [facility] Work Phone: Gram stain for investigation of transfusion reaction Microscopic observation Gram stain Nom (Unsp spec) [facility] Work Phone: Influenza virus A and B and SARS-CoV-2 (COVID-19) Ag panel - Upper respiratory specim SARS-CoV-2 (COVID-19) RNA VISHAL+probe Ql (Resp) [facility] Work Phone: No Panel Information Influenza Types A,B Direct FA (GREG) [facility] Work Phone: Streptococcus pneumoniae Antigen (M [facility] Work Phone: RSV Ag EIA RSV Ag Immune stain Ql (Tiss) [facility] Work Phone: Urine Legionella pneumophila antigen detection L. pneumophila Ag Ql (U) [facility] Work Phone: Vital Signs Date Time Vital Sign Value Performing Clinician Faci lity 03-08-2025 13:52-0400 Diastolic blood pressure 78 mm[Hg] Dr. Kain Bhakta MD Work Phone: [facility] 03-08-2025 13:52-0400 SaO2% (BldA) [Mass fraction] 86 % Dr. Kain Bhakta MD Work Phone: [facility] 03-08-2025 13:52-0400 Systolic blood pressure 161 mm[Hg] Dr. Kain Bhakta MD Work Phone: 5(532)159-073074 [place] [address] 03-08-2025 08:07-0400 Body mass index (BMI) [Ratio] 37.1 kg/m2 Dr. Kain Bhakta MD Work Phone: 3(328)226-611474 [place] [address] 03-08-2025 08:07-0400 Body weight 104.[address] Kain Bhakta MD Work Phone: 9(408)329-707974 [place] [address] 03-08-2025 08:07-0400 Heart rate 79 /min Dr. Kain Bhakta MD Work Phone: 0(473)470-764400 [place] [address] 03-08-2025 08:07-0400 Respiratory rate 18 /min Dr. Kain Bhakta MD Work Phone: 5(898)553-633300 [place] [address] 12-25-2024 11:39-0400 Body temperature 98.2 [degF] Dr. Kain Bhakta MD Work Phone: 7(738)482-600400 [place] [address] 12-25-2024 11:39-0400 Diastolic blood pressure 72 mm[Hg] Dr. Kain Bhakta MD Work Phone: 0(351)026-751674 [place] [address] 12-25-2024 11:39-0400 Heart rate 79 /min Dr. Kain Bhakta MD Work Phone: 2(679)028-712000 [place] [address] 12-25-2024 11:39-0400 Inhaled oxygen flow rate 2 L/min Dr. Kain Bhakta MD Work Phone: 2(608)955-074200 [place] [address] 12-25-2024 11:39-0400 Respiratory rate 14 /min Dr. Kain Bhakta MD Work Phone: 0(540)303-638174 [place] [address] 12-25-2024 11:39-0400 SaO2% (BldA) [Mass fraction] 97 % Dr. Kain Bhakta MD Work Phone: 5(421)172-556774 [place] [address] 12-25-2024 11:39-0400 Systolic blood pressure 144 mm[Hg] Dr. Kain Bhakta MD Work Phone: 7(285)445-222900 [place] [address] 12-25-2024 04:12-0400 Body mass index (BMI) [Ratio] 36.4 kg/m2 Dr. Kain Bhakta MD Work Phone: [facility] 12-25-2024 04:12-0400 Body weight 102.[address] Kain Bhakta MD Work Phone: [facility] 12-21-2024 15:59-0400 Body height 167.[address] Kain Bhakta MD Work Phone: 2(157)666-546274 [place] [address] 12-05-2024 16:22-0400 Body temperature 98.2 [degF] Dr. Kain Bhakta MD Work Phone: 8(479)666-448974 [place] [address] 12-05-2024 16:22-0400 Diastolic blood pressure 78 mm[Hg] Dr. Kain Bhakta MD Work Phone: 3(892)766-210226 [address] 12-05-2024 16:22-0400 Heart rate 70 /min Dr. Kain Bhakta MD Work Phone: 0(111)124-550774 [place] [address] 12-05-2024 16:22-0400 Inhaled oxygen flow rate 2 L/min Dr. Kain Bhakta MD Work Phone: 5(399)605-157774 [place] [address] 12-05-2024 16:22-0400 Respiratory rate 16 /min Dr. Kain Bhakta MD Work Phone: 8(595)681-297326 [address] 12-05-2024 16:22-0400 SaO2% (BldA) [Mass fraction] 99 % Dr. Kain Bhakta MD Work Phone: 9(277)875-093874 [place] [address] 12-05-2024 16:22-0400 Systolic blood pressure 114 mm[Hg] Dr. Kain Bhakta MD Work Phone: [facility] 12-05-2024 04:56-0400 Body mass index (BMI) [Ratio] 36.3 kg/m2 Dr. Kain Bhakta MD Work Phone: 3(057)875-845274 [place] [address] 12-05-2024 04:56-0400 Body weight 102.[address] Kain Bhakta MD Work Phone: 5(874)838-095226 [address] 12-02-2024 13:09-0400 Body temperature 98.1 [degF] Dr. Kain Bhakta MD Work Phone: [facility] 12-02-2024 13:09-0400 Diastolic blood pressure 82 mm[Hg] Dr. Kain Bhakta MD Work Phone: [facility] 12-02-2024 13:09-0400 Heart rate 71 /min Dr. Kain Bhakta MD Work Phone: [facility] 12-02-2024 13:09-0400 Respiratory rate 18 /min Dr. Kain Bhakta MD Work Phone: [facility] 12-02-2024 13:09-0400 SaO2% (BldA) [Mass fraction] 100 % Dr. Kain Bhakta MD Work Phone: [facility] 12-02-2024 13:09-0400 Systolic blood pressure 162 mm[Hg] Dr. Kain Bhakta MD Work Phone: 5(365)058-175474 [place] [address] 12-02-2024 11:29-0400 Inhaled oxygen flow rate 3 L/min Dr. Kain Bhakta MD Work Phone: [facility] 12-02-2024 10:16-0400 Body height 167.[address] Kain Bhakta MD Work Phone: [facility] 12-02-2024 10:16-0400 Body mass index (BMI) [Ratio] 37 kg/m2 Dr. Kain Bhkata MD Work Phone: [facility] 12-02-2024 10:16-0400 Body weight 104.[address] Kain Bhakta MD Work Phone: [facility] 11-30-2024 09:17-0400 Body mass index (BMI) [Ratio] 35.9 kg/m2 Dr. Kain Bhakta MD Work Phone: [facility] 11-30-2024 09:17-0400 Body weight 101.[address] Kain Bhakta MD Work Phone: [facility] 11-30-2024 09:17-0400 Diastolic blood pressure 57 mm[Hg] Dr. Kain Bhakta MD Work Phone: [facility] 11-30-2024 09:17-0400 Heart rate 75 /min Dr. Kain Bhakta MD Work Phone: 2(390)246-439274 [place] [address] 11-30-2024 09:17-0400 Inhaled oxygen flow rate 3 L/min Dr. Kain Bhakta MD Work Phone: 6(756)655-054474 [place] [address] 11-30-2024 09:17-0400 Respiratory rate 18 /min Dr. Kain Bhakta MD Work Phone: 8(995)241-846074 [place] [address] 11-30-2024 09:17-0400 SaO2% (BldA) [Mass fraction] 94 % Dr. Kain Bhakta MD Work Phone: 7(146)198-789200 [place] [address] 11-30-2024 09:17-0400 Systolic blood pressure 108 mm[Hg] Dr. Kain Bhakta MD Work Phone: 6(347)966-331900 [place] [address] 11-21-2024 17:19-0400 Body temperature 98.1 [degF] Dr. Kain Bhakta MD Work Phone: 2(874)523-579700 [place] [address] 11-21-2024 17:19-0400 Diastolic blood pressure 74 mm[Hg] Dr. Kain Bhakta MD Work Phone: 5(273)445-605200 [place] [address] 11-21-2024 17:19-0400 Heart rate 86 /min Dr. Kain Bhakta MD Work Phone: 2(213)365-674174 [place] [address] 11-21-2024 17:19-0400 Respiratory rate 22 /min Dr. Kain Bhakta MD Work Phone: 2(700)834-946074 [place] [address] 11-21-2024 17:19-0400 SaO2% (BldA) [Mass fraction] 96 % Dr. Kain Bhakta MD Work Phone: 1(732)005-363374 [place] [address] 11-21-2024 17:19-0400 Systolic blood pressure 138 mm[Hg] Dr. Kain Bhakta MD Work Phone: 4(591)073-363300 [place] [address] 11-21-2024 16:00-0400 Inhaled oxygen flow rate 2 L/min Dr. Kain Bhakta MD Work Phone: 2(682)462-229126 [address] 11-21-2024 12:33-0400 Body mass index (BMI) [Ratio] 37 kg/m2 Dr. Kain Bhakta MD Work Phone: 4(812)921-734274 [place] [address] 11-21-2024 12:33-0400 Body weight 104.[address] Kain Bhakta MD Work Phone: 9(626)816-502400 [place] [address] 11-21-2024 12:30-0400 Body height 167.[address] Kain Bhakta MD Work Phone: 6(401)933-761300 [place] [address] 11-10-2024 22:02-0400 Body temperature 97.9 [degF] Dr. Kain Bhakta MD Work Phone: 7(101)687-961000 [place] [address] 11-10-2024 22:02-0400 Diastolic blood pressure 60 mm[Hg] Dr. Kain Bhakta MD Work Phone: 1(415)854-658400 [place] [address] 11-10-2024 22:02-0400 Heart rate 70 /min Dr. Kain Bhakta MD Work Phone: 7(976)647-321200 [place] [address] 11-10-2024 22:02-0400 Respiratory rate 18 /min Dr. Kain Bhakta MD Work Phone: 2(452)603-650700 [place] [address] 11-10-2024 22:02-0400 SaO2% (BldA) [Mass fraction] 98 % Dr. Kain Bhakta MD Work Phone: 6(712)504-796400 [place] [address] 11-10-2024 22:02-0400 Systolic blood pressure 150 mm[Hg] Dr. Kain Bhakta MD Work Phone: 4(636)784-110900 [place] [address] 11-10-2024 18:37-0400 Inhaled oxygen flow rate 3 L/min Dr. Kain Bhakta MD Work Phone: 7(234)225-231600 [place] [address] 11-10-2024 18:31-0400 Body height 165.[address] Kain Bhakta MD Work Phone: 0(924)717-834900 [place] [address] 11-10-2024 18:31-0400 Body mass index (BMI) [Ratio] 38 kg/m2 Dr. Kain Bhakta MD Work Phone: 0(443)909-884300 [place] [address] 11-10-2024 18:31-0400 Body weight 103.[address] Kain Bhakta MD Work Phone: 2(896)778-157774 [place] [address] 09-13-2024 07:11-0400 Body height 167.[address] Kain Bhakta MD Work Phone: 4(114)599-889874 [place] [address] 09-13-2024 07:11-0400 Body mass index (BMI) [Ratio] 35.8 kg/m2 Dr. Kain Bhakta MD Work Phone: 3(098)219-456774 [place] [address] 09-13-2024 07:11-0400 Body weight 100.[address] Kain Bhakta MD Work Phone: 7(154)309-936574 [place] [address] 09-13-2024 07:11-0400 Diastolic blood pressure 67 mm[Hg] Dr. Kain Bhakta MD Work Phone: 7(648)802-522674 [place] [address] 09-13-2024 07:11-0400 Heart rate 76 /min Dr. Kain Bhakta MD Work Phone: 1(784)269-950974 [place] [address] 09-13-2024 07:11-0400 Inhaled oxygen flow rate 4 L/min Dr. Kain Bhakta MD Work Phone: 9(293)473-027874 [place] [address] 09-13-2024 07:11-0400 Respiratory rate 18 /min Dr. Kain Bhakta MD Work Phone: 6(230)569-321774 [place] [address] 09-13-2024 07:11-0400 SaO2% (BldA) [Mass fraction] 90 % Dr. Kain Bhakta MD Work Phone: 6(085)405-394874 [place] [address] 09-13-2024 07:11-0400 Systolic blood pressure 111 mm[Hg] Dr. Kain Bhakta MD Work Phone: 3(811)703-604174 [place] [address] 06-29-2023 13:48-0500 Diastolic blood pressure 57 mm[Hg] Dr. Kain Bhakta Work Phone: 1(143)321-085274 [place] [address] 06-29-2023 13:48-0500 Systolic blood pressure 96 mm[Hg] Dr. Kain Bhakta Work Phone: 0(648)244-856674 [place] [address] 06-29-2023 07:59-0500 Body height 165.[address] Kain Bhakta Work Phone: [facility] 06-29-2023 07:59-0500 Body mass index (BMI) [Ratio] 35.7 kg/m2 Dr. Kain Bhakta Work Phone: [facility] 06-29-2023 07:59-0500 Body temperature 97.5 [degF] Dr. Kain Bhakta Work Phone: [facility] 06-29-2023 07:59-0500 Body weight 97.[address] Kain Bhakta Work Phone: [facility] 06-29-2023 07:59-0500 Heart rate 79 /min Dr. Kain Bhakta Work Phone: [facility] 06-29-2023 07:59-0500 Inhaled oxygen flow rate 3 L/min Dr. Kain Bhakta Work Phone: [facility] 06-29-2023 07:59-0500 Respiratory rate 18 /min Dr. Kain Bhakta Work Phone: [facility] 06-29-2023 07:59-0500 SaO2% (BldA) [Mass fraction] 94 % Dr. Kain Bhakta Work Phone: [facility] 06-18-2023 13:45-0500 Body height 165.[address] Kain Bhakta Work Phone: [facility] 06-18-2023 13:45-0500 Body weight 96.[address] Kain Bhakta Work Phone: [facility] 06-18-2023 13:45-0500 Heart rate 75 /min Dr. Kain Bhakta Work Phone: [facility] 06-18-2023 13:45-0500 Inhaled oxygen flow rate 2 L/min Dr. Kain Bhakta Work Phone: [facility] 06-18-2023 13:45-0500 SaO2% (BldA) [Mass fraction] 90 % Dr. Kain Bhakta Work Phone: [facility] 05-19-2023 10:36-0500 Body height 167.[address] Kain Bhakta Work Phone: [facility] 05-19-2023 10:36-0500 Body mass index (BMI) [Ratio] 35.2 kg/m2 Dr. Kain Bhakta Work Phone: [facility] 05-19-2023 10:36-0500 Body temperature 97.7 [degF] Dr. Kain Bhakta Work Phone: [facility] 05-19-2023 10:36-0500 Body weight 98.[address] Kain Bhakta Work Phone: 0(411)905-367074 [place] [address] 05-19-2023 10:36-0500 Diastolic blood pressure 73 mm[Hg] Dr. Kain Bhakta Work Phone: 7(801)783-114774 [place] [address] 05-19-2023 10:36-0500 Heart rate 79 /min Dr. Kain Bhakta Work Phone: [facility] 05-19-2023 10:36-0500 Inhaled oxygen flow rate 3 L/min Dr. Kain Bhakta Work Phone: [facility] 05-19-2023 10:36-0500 Respiratory rate 18 /min Dr. Kain Bhakta Work Phone: [facility] 05-19-2023 10:36-0500 SaO2% (BldA) [Mass fraction] 96 % Dr. Kain Bhakta Work Phone: [facility] 05-19-2023 10:36-0500 Systolic blood pressure 123 mm[Hg] Dr. Kain Bhakta Work Phone: [facility] 04-23-2022 14:14-0500 Body temperature 97.6 [degF] Dr. Kani Bhakta Work Phone: [facility] 04-23-2022 14:14-0500 Diastolic blood pressure 62 mm[Hg] Dr. Kain Bhakta Work Phone: [facility] 04-23-2022 14:14-0500 Heart rate 78 /min Dr. Kain Bhakta Work Phone: [facility] 04-23-2022 14:14-0500 Respiratory rate 18 /min Dr. Kain Bhakta Work Phone: [facility] 04-23-2022 14:14-0500 SaO2% (BldA) [Mass fraction] 95 % Dr. Kain Bhakta Work Phone: [facility] 04-23-2022 14:14-0500 Systolic blood pressure 142 mm[Hg] Dr. Kain Bhakta Work Phone: [facility] 04-23-2022 11:21-0500 Inhaled oxygen flow rate 3 L/min Dr. Kain Bhakta Work Phone: [facility] 04-22-2022 11:09-0500 Body height 167.[address] Kain Bhakta Work Phone: [facility] 04-22-2022 11:09-0500 Body weight 96.[address] Kain Bhakta Work Phone: [facility] 04-18-2022 22:31-0500 Body mass index (BMI) [Ratio] 34.2 kg/m2 Dr. Kain Bhakta Work Phone: [facility] 04-18-2022 21:45-0500 Body temperature 98.2 [degF] [facility] Work Phone: 04-18-2022 21:45-0500 Diastolic blood pressure 74 mm[Hg] [facility] Work Phone: 04-18-2022 21:45-0500 Heart rate 89 /min [facility] Work Phone: 04-18-2022 21:45-0500 Respiratory rate 17 /min [facility] Work Phone: 04-18-2022 21:45-0500 SaO2% (BldA) [Mass fraction] 97 % [facility] Work Phone: 04-18-2022 21:45-0500 Systolic blood pressure 136 mm[Hg] [facility] Work Phone: 04-18-2022 18:11-0500 Inhaled oxygen flow rate 3 L/min [facility] Work Phone: 04-18-2022 17:49-0500 Body height 170.18 cm [facility] Work Phone: 04-18-2022 17:49-0500 Body mass index (BMI) [Ratio] 35.3 kg/m2 [facility] Work Phone: 04-18-2022 17:49-0500 Body weight 102.4 kg [facility] Work Phone: 02-22-2022 16:16-0400 Body height 167.64 cm [facility] Work Phone: 02-22-2022 16:16-0400 Body mass index (BMI) [Ratio] 36.3 kg/m2 [facility] 02-22-2022 16:16-0400 Body temperature 97.8 [degF] [facility] 02-22-2022 16:16-0400 Body weight 102.05 kg [facility] 02-22-2022 16:16-0400 Diastolic blood pressure 78 mm[Hg] [facility] 02-22-2022 16:16-0400 Heart rate 79 /min [facility] 02-22-2022 16:16-0400 Respiratory rate 16 /min [facility] 02-22-2022 16:16-0400 SaO2% (BldA) [Mass fraction] 94 % [facility] 02-22-2022 16:16-0400 Systolic blood pressure 175 mm[Hg] [facility] Encounters Encounter Date Encounter Type Care Provider Facility Start: 03-08-2025 End: 03-08-2025 Patient encounter procedure Hossein RAMOS -[facility] Work Phone: Start: 03-08-2025 End: 03-08-2025 ambulatory Kain Chi Yony Facility:[facility] Start: 01-04-2025 ambulatory Geo FUENTES Facil ity:[facility] Start: 01-04-2025 Registered Referred Geo Bartholomew MD - [facility] Start: 12-05-2024 End: 12-25-2024 Evaluation and management of inpatient Dr. Kain Bhakta MD -Transitional Care Unit Start: 12-05-2024 Non-patient / Non-visit Dr. Nora Ramirez MD -[facility] Work Phone: Start: 12-04-2024 Non-patient / Non-visit Dr. Afsaneh Kapoor MD -[facility] Work Phone: Start: 12-03-2024 Non-patient / Non-visit Dr. Afsaneh Kapoor MD -[facility] Work Phone: Start: 12-02-2024 ambulatory Afsaneh Kapoor Facility :[facility] Start: 12-02-2024 End: 12-05-2024 Evaluation and management of inpatient Dr. Afsaneh Kapoor MD -Progressive Care Unit Work Phone: Start: 11-30-2024 End: 11-30-2024 Patient encounter procedure Daisha Nelson MA -[facility] Work Phone: Start: 11-30-2024 End: 11-30-[address] Kain Bhakta MD Work Phone: -[facility] Start: 11-21-2024 End: 11-21-2024 Emergency department patient visit Dr. Kain Bhakta MD Work Phone: -Emergency Department Work Phone: Start: 11-21-2024 End: 11-21-[address] Kain Bhakta MD Work Phone: -Laboratory Phy Office 3rd Flr Start: 11-21-2024 End: 11-21-[address] Kain Bhakta MD -Laboratory Phy Office 3rd Flr Start: 11-21-2024 End: 11-21-2024 ambulatory Kain Bhakta Facility:[facility] Start: 11-10-2024 End: 11-10-2024 Emergency department patient visit Dr. Kain Bhakta MD Work Phone: -Emergency Department Work Phone: Start: 09-29-2024 Non-patient / Non-visit Dr. Kalen church MD -[facility] Start: 09-29-2024 End: 09-29-[address] Kain Bhakta MD Work Phone: [facility] Work Phone: Start: 09-29-2024 End: 09-29-2024 Patient encounter procedure Daisha RAMOS -Cardiovascular Services Work Phone: Start: 09-29-2024 End: 09-29-2024 ambulatory Daisha North Facility:[facility] Start: 09-13-2024 End: 09-13-2024 Patient encounter procedure Daisha RAMOS -[facility] Work Phone: Start: 09-13-2024 End: 09-13-2024 ambulatory Kain Chi Yony Facility:[facility] Start: 07-05-2024 End: 07-05-[address] Keshia Cottrell DO -Laboratory Work Phone: Start: 07-05-2024 End: 07-05-2024 ambulatory Keshia Cottrell Facility:[facility] Start: 05-04-2024 End: 05-04-2024 ambulatory Kain Chi Yony Facility:[facility] Start: 04-21-2024 End: 04-21-2024 ambulatory Kain Chi Yony Facility:[facility] Start: 04-15-2024 End: 04-15-2024 ambulatory Kain Chi Yony Facility:[facility] Start: 04-13-2024 End: 04-13-2024 ambulatory Kain Chi Yony Facility:[facility] Start: 04-11-2024 End: 04-11-2024 ambulatory Kain Chi Yony Facility:[facility] Start: 04-05-2024 End: 04-05-2024 ambulatory Kain Chi Yony Facility:[facility] Start: 03-31-2024 End: 03-31-2024 ambulatory Kain Chi Yony Facility:[facility] Start: 03-29-2024 End: 03-29-2024 ambulatory Kain Chi Yony Facility:[facility] Start: 03-23-2024 ambulatory Riley Childers Facility:[facility] Start: 03-23-2024 End: 04-09-2024 Evaluation and management of inpatient Kain Gomez Yony Facility:[facility] Start: 08-14-2023 End: 08-14-[address] Kain Bhakta Work Phone: [facility] Work Phone: Start: 08-14-2023 End: 08-14-[address] [facility] Start: 08-12-2023 End: 08-12-[address] Kain Bhakta Work Phone: [facility] Work Phone: Start: 08-12-2023 End: 08-12-[address] Kain Bhakta [facility] Phone[facility] Start: 06-29-2023 End: 06-29-[address] Kain Bhakta Work Phone: [facility] Work Phone: Start: 06-19-2023 Non-patient / Non-visit Dr. Miah Bhakta Work Phone: [facility] Start: 06-18-2023 End: 06-18-[address] Kain Bhakta Work Phone: [facility]-Pulmonary Services/Neurology Work Phone: Start: 06-17-2023 Non-patient / Non-visit Dr. Miah Bhakta Work Phone: [facility] Start: 06-16-2023 End: 06-16-[address] Kain Bhakta Work Phone: [facility] Work Phone: Start: 06-16-2023 End: 06-16-[address] Kain Bhakta [facility] Work [facility]: Start: 05-20-2023 End: 05-20-[address] Kain Bhakta Work Phone: [facility] [facility] Work Phone: Start: 05-20-2023 End: 05-20-[address] Kain Bhakta Work Phone: [facility] Office 3rd Flr Start: 05-19-2023 End: 05-19-[address] Kain Bhakta Work Phone: [facility] Work Phone: Start: 02-18-2023 End: 02-18-[address] Kain Bhakta Work Phone: [facility], [facility] Office 3rd Flr Start: 08-06-2022 End: 08-06-[address] Kain Bhakta Work Phone: [facility] Work Phone: Start: 08-06-2022 End: 08-06-[address] Kain Bhakta [facility] Flr Start: 07-10-2022 End: 07-10-[address] Kain Bhakta Work Phone: [facility] Work Phone: Start: 07-10-2022 End: 07-10-[address] Kain Bhakta Work Phone: [facility] Start: 06-23-2022 End: 08-13-[address] Kain Bhakta Work Phone: [facility] Work Phone: Start: 06-23-2022 End: 08-13-[address] Kain Bhakta Work Phone: [facility] Start: 06-23-[address] Kain sim Work Phone: [facility] Start: 06-20-2022 End: 06-20-[address] Kain Bhakta Work Phone: [facility] Start: 06-13-2022 End: 06-13-[address] Kain Bhakta Work Phone: [facility] Work Phone: Start: 06-13-2022 End: 06-13-[address] Kain Bhakta Work Phone: [facility], [facility] Office 3rd Flr Start: 06-06-2022 End: 06-06-[address] Kain Bhakta Work Phone: [facility] Work Phone: Start: 06-06-2022 End: 06-06-[address] Kain Bhakta Work Phone: [facility], [facility] Office 3rd Flr Start: 06-02-2022 End: 06-02-[address] Kain Bhakta Work Phone: [facility] Work Phone: Start: 06-02-2022 End: 06-02-[address] Kain Bhakta [facility] Phone[facility] 3[facility] Flr Start: 05-26-2022 End: 05-26-[address] Kain Bhakta Work Phone: [facility] Work Phone: Start: 05-26-2022 End: 05-26-[address] Kain Bhakta Work Phone: [facility], [facility] Office 3rd Flr Start: 05-22-2022 End: 05-22-[address] Kain Bhakta Work Phone: [facility] Work Phone: Start: 05-22-2022 End: 05-22-[address] Kain Bhakta Work Phone: [facility], y Office 3rd Flr Start: 04-30-2022 End: 04-30-[address] Kain Bhakta Work Phone[facility] Start: 04-23-2022 Non-patient / Non-visit Dr. Miah Bhakta Work Phone: [facility] Start: 04-22-2022 Non-patient / Non-visit Dr. Miah Bhakta Work Phone: [facility] Start: 04-22-2022 Non-patient / Non-visit Dr. Miah Bhakta Work Phone: [facility] Start: 04-21-2022 Non-patient / Non-visit Dr. Miah Bhakta Work Phone: [facility] Start: 04-20-2022 Non-patient / Non-visit Dr. Miah Bhakta Work Phone: [facility] Start: 04-20-2022 Non-patient / Non-visit Dr. Miah Bhakta Work Phone: [facility] Start: 04-19-2022 Non-patient / Non-visit Dr. Miah Bhakta Work Phone: [facility] Start: 04-19-2022 Non-patient / Non-visit Dr. Miah Bhakta Work Phone: [facility] Start: 04-18-2022 Non-patient / Non-visit Dr. Miah Bhakta Work Phone: [facility] [facility] Start: 04-18-2022 End: 04-23-2022 Evaluation and management of inpatient [facility]-Progressive Care Unit Start: 04-14-2022 End: 04-14-2022 Patient encounter procedure [facility] Services/Neurology Start: 04-09-2022 End: 04-09-2022 ambulatory [facility] Work Phone: Start: 04-09-2022 End: 04-09-2022 Patient encounter procedure [facility], Phy Office 3rd Flr Start: 04-09-2022 End: 04-09-2022 ambulatory [facility] Work Phone: Start: 04-09-2022 End: 04-09-2022 Patient encounter procedure [facility], [facility] Start: 02-22-2022 End: 02-22-2022 Emergency department patient visit [facility] Start: 02-05-2022 End: 02-05-2022 ambulatory [facility] Work Phone: Start: 02-05-2022 End: 02-05-2022 Patient encounter procedure [facility], Phy Office 3rd Flr Start: 12-10-2021 End: 12-10-2021 Patient encounter procedure [facility], Specimen Start: 10-29-2021 End: 10-29-2021 Patient encounter procedure [facility], Phy Office 3rd Flr Start: 09-11-2021 End: 09-11-2021 Patient encounter procedure [facility], Phy Office 3rd Flr Start: 07-25-2021 End: 07-25-2021 Patient encounter procedure [facility], Phy Office 3rd Flr Procedures Date Procedure Procedure Detail Performing Clinician Start: 12-20-[address] Kain Bhakta MD Work Phone: Start: 12-05-[address] Kain Bhakta MD Work Phone: Start: 12-03-[address] Kain Bhakta MD Work Phone: Comment on above: ACTH reference inter elizabeth for samples collected between 7 and10 AM.Performed at: [address] [id number] Director: Dre Diane PhD, Phone: [phone] Start: 12-02-2024 Plain X-ray abdomen Dr. Kain Bhakta MD Work Phone: Start: 12-02-2024 CT of head without contrast Dr. Kain Bhakta MD Work Phone: Start: 12-02-2024 Urnls dip stick/tabl et reagent auto microscopy Dr. Kain Bhakta MD Work Phone: Start: 12-02-[address] Kain Bhakta MD Work Phone: Start: 11-21-2024 Measurement of occul t blood in stool specimen using immunoassay Dr. Kain Bhakta MD Work Phone: Start: 11-21-2024 X-ray of chest, PA a nd lateral views Dr. Kain Bhakta MD Work Phone: Start: 11-21-2024 Carbon dioxide measu rement, partial pressure Dr. Kian Bhakta MD Work Phone: Start: 11-21-2024 Gases blood o2 satur ation only direct keven Dr. Kain Bhakta MD Work Phone: Start: 11-21-2024 Measurement of parti al pressure of oxygen in blood Dr. Kain Bhakta MD Work Phone: Start: 11-21-[address] Kain Bhakta MD Work Phone: Start: 11-21-[address] Kain Bhakta MD Work Phone: Start: 11-21-2024 Vitamin D, 25-hydrox y measurement Dr. Kain Bhakta MD Work Phone: Comment on above: Vitamin D StatusDefi ciency: <20 ng/mL (50nmol/L)Insufficiency: 20-30 ng/mL (50-75 nmol/L)Sufficiency: 30-100 ng/mL (75-250 nmol/L)Toxicity: >100 ng/mL (>250 nmol/L) Start: 11-10-2024 Plain x-ray of pelvi s and lower extremity Dr. Kain Bhakta MD Work Phone: Start: 11-10-2024 CT cervical spine wi thout contrast Dr. Kain Bhakta MD Work Phone: Start: 11-10-[address] Kain hill MD Work Phone: Start: 11-10-2024 CT of head without contrast Dr. Kain Bhakta MD Work Phone: Start: 09-13-2024 Evaluation of diagno stic study results Dr. Kain Bhakta MD Work Phone: Start: 07-05-2024 Assay of phosphorus inorganic Dr. Kain Bhatka MD Work Phone: Start: 07-05-2024 Measurement of renal function Dr. Kain Bhakta MD Work Phone: Comment on above: GFR Calc Start: 08-14-2023 Measurement of occul t blood in stool specimen using immunoassay Dr. Kain Bhakta Work Phone: Start: 08-06-2022 X-ray of lumbosacral spine Dr. Kain Bhakta Work Phone: Start: 07-10-[address] Miah Bhakta Work Phone: Start: 04-19-2022 Plain chest X-ray Dr. Ap Bhakta Work Phone: Start: 04-18-2022 Pulmonary ventilatio n perfusion study Dr. Kain Bhakta Work Phone: Start: 04-18-2022 Plain chest X-ray Start: 04-09-2022 Diagnostic radiograp hy of abdomen, decubitus and erect Start: 02-22-2022 Diagnostic radiograp hy of finger Influenza Types A,B Direct FA (GREG) Influenza Types A,B Direct FA (GREG) Dr. Kain Bhakta Work Phone: Investigation of tra nsfusion reaction Legionella pneumophi la antigen assay Dr. Kain Bhakta Work Phone: Legionella pneumophi la antigen assay Dr. Kain Bhakta Work Phone: Microbial culture, routine Respiratory syncytia l virus antigen assay Respiratory syncytia l virus antigen assay Dr. Kain Bhakta Work Phone: Respiratory syncytia l virus antigen assay Dr. Kain Bhakta Work Phone: SARS-CoV-2 & FLU Ant igen (Rapid) SARS-CoV-2 & FLU Ant igen (Rapid) Dr. Kain Bhakta Work Phone: Streptococcus pneumo niae Antigen (M Dr. Kain Bhakta Work Phone: Streptococcus pneumo niae Antigen (M Dr. Kain Bhakta Work Phone: Plan of Treatment Date Care Activity Detail Author Start: 03-08-2025 End: 03-08-2025 Evaluation of diagnostic study results [facility] Start: 12-25-2024 Patient discharge [facility] Start: 12-22-2024 [facility] Start: 12-15-2024 Speech therapy management [facility] Start: 12-14-2024 Speech therapy assessment [facility] Start: 12-09-2024 Application of inter mittent pneumatic compression device [facility] Start: 12-09-2024 Oxygen therapy [facility] Start: 12-09-2024 Application of inter mittent pneumatic compression device [facility] Start: 12-09-2024 Application of elastic bandage [facility] Start: 12-06-2024 Development of care plan [facility] Start: 12-06-2024 Developing a treatment plan [facility] Start: 12-05-2024 Following clinical p athway protocol [facility] Start: 12-05-2024 Admission procedure [facility] Start: 12-05-2024 Introduction of urin mumtaz catheter [facility] Start: 12-05-2024 Measuring intake and output [facility] Start: 12-05-2024 Patient referral to dietitian [facility] Start: 12-05-2024 Referral for physical therapy [facility] Start: 12-05-2024 Referral to occupati onal therapist [facility] Start: 12-05-2024 Referral to service [facility] Start: 12-05-2024 Vital signs measurements [facility] Start: 12-05-2024 [facility] Start: 12-05-2024 Patient discharge [facility] Start: 12-05-2024 CBC W Auto Different ial panel - Blood [facility] Start: 12-05-2024 Comprehensive metabo lic 1999 panel - Serum or Plasma [facility] Start: 12-04-2024 CBC W Auto Different ial panel - Blood [facility] Start: 12-04-2024 Comprehensive metabo lic 1999 panel - Serum or Plasma [facility] Start: 12-03-2024 [facility] Start: 12-03-2024 CBC W Auto Different ial panel - Blood [facility] Start: 12-03-2024 Comprehensive metabo lic 1999 panel - Serum or Plasma [facility] Start: 12-02-2024 End: 12-02-2024 [facility] Start: 12-02-2024 Notification of physician [facility] Start: 12-02-2024 Following clinical p athway protocol [facility] Start: 12-02-2024 Application of elastic bandage [facility] Start: 12-02-2024 Assessment of risk o f venous thromboembolism [facility] Start: 12-02-2024 Elevation of head of bed [facility] Start: 12-02-2024 Fall prevention [facility] Start: 12-02-2024 Incentive spirometry [facility] Start: 12-02-2024 Inhalation therapy procedure [facility] Start: 12-02-2024 Insertion of cathete r into peripheral vein [facility] Start: 12-02-2024 Introduction of urin mumtaz catheter [facility] Start: 12-02-2024 Measuring intake and output [facility] Start: 12-02-2024 Oxygen therapy [facility] Start: 12-02-2024 Patient referral to dietitian [facility] Start: 12-02-2024 Providing care accor ding to standard [facility] Start: 12-02-2024 Provision of activit y privileges [facility] Start: 12-02-2024 Referral for physical therapy [facility] Start: 12-02-2024 Referral to occupati onal therapist [facility] Start: 12-02-2024 Referral to service [facility] Start: 12-02-2024 [facility] Start: 12-02-2024 Verification routine [facility] Start: 12-02-2024 Admission procedure [facility] Start: 12-02-2024 Care regimes management [facility] Start: 11-21-2024 [facility] Start: 11-21-2024 [facility] Start: 11-21-2024 [facility] Start: 11-10-2024 [facility] Start: 04-23-2022 Patient discharge [facility] Start: 04-23-2022 Referral to service [facility] Start: 04-23-2022 [facility] Start: 04-21-2022 Inhalation therapy procedure [facility] Start: 04-21-2022 [facility] Start: 04-19-2022 Care regimes management [facility] Start: 04-19-2022 Notification of physician [facility] Start: 04-19-2022 [facility] Start: 04-19-2022 Consultation [facility] Start: 04-19-2022 End: 04-19-2022 [facility] Start: 04-19-2022 Care regimes management [facility] Start: 04-19-2022 Notification of physician [facility] Start: 04-19-2022 Patient referral to dietitian [facility] Start: 04-18-2022 Following clinical p athway protocol [facility] Start: 04-18-2022 Assessment of risk o f venous thromboembolism [facility] Start: 04-18-2022 Incentive spirometry [facility] Start: 04-18-2022 Insertion of cathete r into peripheral vein [facility] Start: 04-18-2022 Measuring intake and output [facility] Start: 04-18-2022 Oxygen therapy [facility] Start: 04-18-2022 Providing care accor ding to standard [facility] Start: 04-18-2022 Provision of activit y privileges [facility] Start: 04-18-2022 Referral to occupati onal therapist [facility] Start: 04-18-2022 Referral to service [facility] Start: 04-18-2022 [facility] Start: 04-18-2022 Creatinine [Mass/vol ume] in Urine [facility] Work Phone: Start: 04-18-2022 Legionella pneumophi la Ag [Presence] in Urine [facility] Work Phone: Start: 04-18-2022 Osmolality of Urine [facility] Work Phone: Start: 04-18-2022 Sodium [Moles/volume] in Urine [facility] Work Phone: Start: 04-18-2022 Streptococcus pneumo niae antigen assay [facility] Work Phone: Start: 04-18-2022 Verification routine [facility] Work Phone: Start: 04-18-2022 Admission procedure [facility] Start: 04-18-2022 [facility] Work Phone: Start: 04-18-2022 [facility] Work Phone: Start: 12-10-2021 [facility] Work Phone: Alanine aminotransfe rase [Enzymatic activity/volume] in Serum or Plasma [facility] Alanine aminotransfe rase [Enzymatic activity/volume] in Serum or Plasma [facility] Alanine aminotransfe rase [Enzymatic activity/volume] in Serum or Plasma [facility] Albumin [Mass/volume ] in Serum or Plasma [facility] Albumin [Mass/volume ] in Serum or Plasma [facility] Albumin [Mass/volume ] in Serum or Plasma [facility] Alkaline phosphatase [Enzymatic activity/volume] in Serum or Plasma [facility] Alkaline phosphatase [Enzymatic activity/volume] in Serum or Plasma [facility] Alkaline phosphatase [Enzymatic activity/volume] in Serum or Plasma [facility] Anion gap in Serum or Plasma [facility] Anion gap in Serum or Plasma [facility] Anion gap in Serum or Plasma [facility] Bacteria identified in Wound by Culture [facility] Work Phone: Bilirubin measurement, urine [facility] Work Phone: Bilirubin, total measurement [facility] Bilirubin, total measurement [facility] Bilirubin, total measurement [facility] BUN/Creatinine ratio [facility] BUN/Creatinine ratio [facility] BUN/Creatinine ratio [facility] Calcium [Mass/volume ] in Serum or Plasma [facility] Calcium [Mass/volume ] in Serum or Plasma [facility] Calcium [Mass/volume ] in Serum or Plasma [facility] Carbon dioxide, tota l [Moles/volume] in Central venous blood [facility] Carbon dioxide, tota l [Moles/volume] in Central venous blood [facility] Carbon dioxide, tota l [Moles/volume] in Central venous blood [facility] Creatinine [Mass/vol ume] in Serum or Plasma [facility] Creatinine [Mass/vol ume] in Serum or Plasma [facility] Creatinine [Mass/vol ume] in Serum or Plasma [facility] Erythrocyte mean cor puscular volume determination [facility] Erythrocyte mean cor puscular volume determination [facility] Erythrocyte mean cor puscular volume determination [facility] Exercise tolerance test [facility] Glucose [Mass/volume ] in Serum or Plasma [facility] Glucose [Mass/volume ] in Serum or Plasma [facility] Glucose [Mass/volume ] in Serum or Plasma [facility] Hematocrit [Volume F raction] of Blood [facility] Hematocrit [Volume F raction] of Blood [facility] Hematocrit [Volume F raction] of Blood [facility] Hemoglobin [Mass/vol ume] in Blood [facility] Hemoglobin [Mass/vol ume] in Blood [facility] Hemoglobin [Mass/vol ume] in Blood [facility] Hemoglobin [Presence] in [facility]rine [facility] [facility] Work Phone: Hemoglobin A1c/Hemoglobin.total in Blood [facility] Leukocytes [#/volume] in Blood [facility] Leukocytes [#/volume] in Blood [facility] Leukocytes [#/volume] in Blood [facility] Magnesium measurement [facility] Mean corpuscular hem oglobin concentration determination [facility] Mean corpuscular hem oglobin concentration determination [facility] Mean corpuscular hem oglobin concentration determination [facility] Mean corpuscular hem oglobin determination [facility] Mean corpuscular hem oglobin determination [facility] Mean corpuscular hem oglobin determination [facility] Measurement of keton es in urine using dipstick [facility] Work Phone: Measurement of renal function [facility] Measurement of renal function [facility] Measurement of renal function [facility] Measurement of respi ratory function [facility] Microscopic urinalysis [facility] Work Phone: Neutrophil count [facility] Neutrophil count [facility] Neutrophil count [facility] Neutrophil percent differential count [facility] Neutrophil percent differential count [facility] Neutrophil percent differential count [facility] Organism count, micr oscopic method [facility] Work Phone: Patient Education [facility] Work Phone: Patient referral [facility] Work Phone: pH of Urine [facility] Work Phone: Platelets [#/volume] in Blood [facility] Platelets [#/volume] in Blood [facility] Platelets [#/volume] in Blood [facility] Potassium measurement [facility] Potassium measurement [facility] Potassium measurement [facility] Procalcitonin [Mass/ volume] in Serum or Plasma by Immunoassay [facility] Red blood cell count [facility] Red blood cell count [facility] Red blood cell count [facility] Red cell distributio n width determination [facility] Red cell distributio n width determination [facility] Red cell distributio n width determination [facility] Serum chloride measurement [facility] Serum chloride measurement [facility] Serum chloride measurement [facility] Sodium measurement [facility] Sodium measurement [facility] Sodium measurement [facility] Specific gravity of Urine [facility] Work Phone: Total protein measurement [facility] Total protein measurement [facility] Total protein measurement [facility] Troponin T.cardiac [Mass/volume] in Serum or Plasma by High sensitivity method [facility] Troponin T.cardiac [Mass/volume] in Serum or Plasma by High sensitivity method [facility] Urea nitrogen [Mass/ volume] in Serum or Plasma [facility] Urea nitrogen [Mass/ volume] in Serum or Plasma [facility] Urea nitrogen [Mass/ volume] in Serum or Plasma [facility] Urinalysis, blood, qualitative [facility] Work Phone: Urine dipstick for glucose [facility] Work Phone: Urine dipstick for l eukocyte esterase [facility] Work Phone: Urine dipstick for nitrite [facility] Work Phone: Urine dipstick for protein [facility] Work Phone: Urine examination [facility] Work Phone: Urine microscopy: ep ithelial cells [facility] Work Phone: Urobilinogen [Presen ce] in Urine [facility] Work Phone: White blood cell count [facility] Work Phone: Wound Culture Wound Culture [facility] Work Phone: [facility] Immunizations Immunization Date Immunization Notes Care Provider Fa memo 07-13-2018 Influenza virus vaccine [facility] 06-18-2017 influenza, injectabl e, quadrivalent, preservative free Dr. Kain Bhakta MD Work Phone: [facility] 02-17-2017 pneumococcal conjuga te vaccine, [address] Kain Bhakta MD Work Phone: [facility] Payers Date Payer Category Payer Unknown [id number] 2024 Self-pay [id number] 2024 Private Health Insurance [facility] [id number] Medicare [id number] Medicare [id number] Medicare [id number] Unknown [id number] Unknown [id number] Unknown [id number] Unknown [id number] 2.16.8 40.1.545079.3.579.2.462 Unknown [id number] 2.16.8 40.1.562139.3.579.2.462 Unknown [id number] 2.16.8 40.1.606758.3.579.2.462 Unknown [id number] 2.16.8 40.1.501740.3.579.2.462 Unknown [id number] 2.16.8 40.1.563494.3.579.2.462 Unknown [id number] 2.16.8 40.1.485861.3.579.2.462 Unknown [id number] 2.16.8 40.1.454998.3.579.2.462 Unknown [id number] 2.16.8 40.1.380635.3.579.2.462 Unknown [id number] 2.16.8 40.1.711089.3.579.2.462 Unknown [id number] 2.16.8 40.1.754040.3.579.2.462 Unknown [id number] 2.16.8 40.1.732987.3.579.2.462 Unknown [id number] 2.16.8 40.1.565523.3.579.2.462 Unknown [id number] 2.16.8 40.1.047267.3.579.2.462 Unknown [id number] 2.16.8 40.1.704086.3.579.2.462 Unknown [id number] 2.16.8 40.1.597324.3.579.2.462 Unknown [id number] 2.16.8 40.1.773664.3.579.2.462 Unknown [id number] 2.16.8 40.1.080296.3.579.2.462 Unknown [id number] 2.16.8 40.1.167219.3.579.2.462 Unknown [id number] 2.16.8 40.1.931775.3.579.2.462 Unknown [id number] 2.16.8 40.1.436250.3.579.2.462 Unknown [id number] 2.16.8 40.1.261244.3.579.2.462 Unknown [id number] 2.16.8 40.1.736186.3.579.2.462 Unknown [id number] 2.16.8 40.1.103798.3.579.2.462 Unknown [id number] 2.16.8 40.1.140819.3.579.2.462 Unknown [id number] 2.16.8 40.1.788473.3.579.2.462 Unknown [id number] 2.16.8 40.1.786630.3.579.2.462 Social History Date Type Detail Facility Start: 01-01-2019 End: 06-29-2023 Tobacco smoking status OHIS Unknown if ever smoked [facility] Start: 07-13-2018 None [facility] Start: 07-13-2018 Alone [facility] Start: 07-14-2018 Non-smoker [facility] Start: 1940 Sex Assigned At Male [facility] Start: 03-23-2024 End: 12-05-2024 Tobacco smoking status NHIS Ex-smoker (finding) [facility] Sex Male [facility] Medical Equipment Procedure Code Equipment Code Equipment Original Text Equipment Identifier Dates pen needles, lizzie cets, test strips diabetic Start: 04-23-2022 pen needles, lizzie cets, test strips diabetic Start: 04-23-2022 pen needles, lizzie cets, test strips diabetic Start: 04-23-2022 pen needles, lizzie cets, test strips diabetic Start: 04-23-2022 pen needles, lizzie cets, test strips diabetic Start: 04-23-2022 pen needles, lizzie cets, test strips diabetic Start: 04-23-2022 pen needles, lizzie cets, test strips diabetic Start: 04-23-2022 pen needles, lizzie cets, test strips diabetic Start: 04-23-2022 pen needles, lizzie cets, test strips diabetic Start: 04-23-2022 pen needles, lizzie cets, test strips diabetic Start: 04-23-2022 pen needles, lizzie cets, test strips diabetic Start: 04-23-2022 pen needles, lizzie cets, test strips diabetic Start: 04-23-2022 pen needles, lizzie cets, test strips diabetic Start: [id number] FDA Start: 03-16-2024 pen needles, lizzie cets, test strips diabetic Start: 04-23-2022 End: [id number] FDA Start: 03-16-2024 pen needles, lizzie cets, test strips diabetic Start: 04-23-2022 End: [id number] FDA Start: 03-16-2024 pen needles, lizzie cets, test strips diabetic Start: 04-23-2022 End: [id number] FDA Start: 03-16-2024 pen needles, lizzie cets, test strips diabetic Start: 04-23-2022 End: 04-07-2024 [id number] FDA Start: 03-16-2024 pen needles, lizzie cets, test strips diabetic Start: 04-23-2022 End: 04-07-2024 [id number] FDA Start: 03-16-2024 pen needles, lizzie cets, test strips diabetic Start: 04-23-2022 End: 04-07-2024 [id number] FDA Start: 03-16-2024 pen needles, lizzie cets, test strips diabetic Start: 04-23-2022 End: 04-07-2024 [id number] FDA Start: 03-16-2024 pen needles, lizzie cets, test strips diabetic Start: 04-23-2022 End: 04-07-2024 Goals Date Patient Goal Desired Activity /State Functional Status Date Assessment Result Facility 12-25-2024 Functional status Bedrest [facility] Work Phone: 12-24-2024 Functional status Standard Walker [facility] Work Phone: 12-05-2024 Functional status Ambulates;Bathroom Priv ilege [facility] Work Phone: 04-23-2022 Functional status Bedrest [facility] Work Phone: Mental Status Date Assessment Result Facility 12-25-2024 Cognitive function Voice/Name [facility] Work Phone: 12-24-2024 Cognitive function Appropriate;Cooperativ e [facility] Work Phone: 12-05-2024 Cognitive function Voice/Name [facility] Work Phone: 12-02-2024 Cognitive function Voice/Name [facility] Work Phone: 11-21-2024 Cognitive function Level Of Cons ciousness Awake;Alert;Appropriate;Follow s Commands [facility] Work Phone: 04-23-2022 Cognitive function Voice/Name [facility] Work Phone: 04-18-2022 Cognitive function Level Of Cons ciousness Awake;Alert;Appropriate [facility] Work Phone: Clinical Notes 06-17-2023 to 03-08-2025 Note Date & Type Note Facility 03-08-2025 Progress note [facility] 03-08-2025 Progress note Note Date/Time March 08, 2025 3:44pm [facility] [address] [place] [address] OFFICE VISIT Date of Service: 03/08/25 MR#: [id number] Acct: [id number] Name: JUNIOR BOONE Rep #: [id number] : 1940 Provider: RACHEL Mckeon Age/Sex: 84/M Location: [facility] Status: Signed HPI HPI History of Present Illness Details: Junior Boone (Jonas) is an 84-year-old male who presents to office today forfollow-up for monitoring his cardiovascular health. He has a history of coronary artery disease status post PCI to his left circumflex artery in February2024 and hypertension. Upon presentation today, patient reports chest pain on the left-side that happenevery now and then, lasts a couple of seconds described as a sharp pain that he notes going into his left shoulder. Pain worsens with a deep breath when he is experiencing it. He experiences occasional pounding sensation in his chest when he lays down at night, this does not happen every night. He notices headaches inthe evening when trying to go to sleep. He sleeps in a recliner secondary to LE pain with lying flat. Uncertain if having orthopnea. He was started on O2 NC about 6 months ago. Further ROS below. Intake Vital Signs 12/21/24 15:59 03/08/25 08:07 03/08/25 13:50 03/08/25 13:52 Height 5 ft 6 in 5 ft 6 in Weight: 230 lb BMI 37.1 BP 150/84 H 161/78 H Blood Pressure Location Lt brachial Lt brachial Position Sitting Sitting Respiration 18 Pulse 79 Pulse Source Monitor Pulse Oximetry (%) 89 98 86 Oxygen Delivery Method room air nasal canula room air Intake Visit Reasons: CP ([facility]) Tobacco Wrapping Machine Tender Required: No Accompanied by: Self Is patient in pain?: Yes Allergies No Known Allergies Allergy (Verified 03/08/25 13:39) Medications ?Medication ?Instructions ?Recorded ?Confirmed ?Type levothyroxine 25 mcg tablet 25 mcg PO DAILY THYROID 02 /22/23 10/22/25 History ascorbate calcium (vitamin C) 500 500 mg PO DAILY SUPP LEMENT 03/09/24 03/08/25 History mg tablet gabapentin 300 mg capsule 300 mg PO BID NEUROPATHY 03/08/25 History polysaccharide iron complex 150 mg 150 mg PO DAILY SUP PLEMENT 03/09/24 03/08/25 History iron capsule (Ferrex) aspirin 81 mg tablet,delayed 81 mg PO BREAKFAST heart #30 tabs 03/23/24 03/08/25 Rx release nitroglycerin 0.4 mg sublingual 0.4 mg sublingual Q5M PRN 03/23/24 03/08/25 Rx tablet Cardiac/Chest Pain #30 tabs ranolazine 500 mg tablet,extended 500 mg PO BID Heart #60 tabs 09/13/24 03/08/25 Rx release,12 hr clopidogrel 75 mg tablet 75 mg PO DAILY blood thinner 11/21/24 03/08/25 History fluticasone 232 mcg-salmeterol 14 1 inh inhalation Q12 #0 ea 12/22/24 03/08/25 Rx mcg/actuation breath activated powdr pantoprazole 40 mg tablet,delayed 40 mg PO DAILY #0 ta bs 12/22/24 03/08/25 Rx release sennosides 8.6 mg-docusate sodium 1 tab PO BID #0 tabs 12/22/24 03/08/25 Rx 50 mg tablet (Stimulant Laxative Plus) umeclidinium 62.5 mcg/actuation 1 inh inhalation DAILY #0 ea 12/22/24 03/08/25 Rx blister powder for inhalation (Incruse Ellipta) insulin glargine-yfgn 100 unit/mL 35 unit subcut QHS 1 History (3 mL) subcutaneous pen insulin lispro 100 unit/mL 14 unit subcut TIDAC History subcutaneous pen (Humalog KwikPen (U-100) Insulin) isosorbide mononitrate 30 mg 30 mg PO QAM #90 tabs 03/08/25 Rx tablet,extended release 24 hr triamcinolone acetonide 0.1 % 1 applic topical BID PRN 03/08/25 03/08/25 History topical cream Ejection fraction %: 65 Have you fallen in the past year?: Yes Nurse's Note: Pt said his urine is darker than normal. He told a nurse at the long-term andshe told him to drink more water, but this was not tested. Pt's SPO2 is low today. I asked if he wears O2 at the long-term. He says he wears 2L continuously, but pt presents with no tank. 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 Vitamin D deficiency GERD (gastroesophageal reflux disease) Heart failure with preserved ejection fraction Diabetic polyneuropathy Hypothyroidism Atherosclerotic cardiovascular disease COPD (chronic obstructive pulmonary disease) Chronic hypoxemic respiratory failure Pneumonia due to COVID-19 virus Hypertension PVCs (premature ventricular contractions) Anemia Obesity (BMI 30.0-34.9) Diabetes mellitus, type II HLD (hyperlipidemia) Surgical History History of coronary artery stent placement Stented coronary artery (03/16/24) History of appendectomy Family History Brother Diabetes Mother Diabetes Sister Diabetes Father Heart disease Social History household members: none Smoking Status: Former smoker alcohol intake: never substance use type: does not use ROS Const Const: Positive for headache(s); Negative for fatigue or weakness Eyes Eyes: Negative for change in vision ENT ENT: Positive for headache(s), Nosebleed/epistaxis and balance problems (Pt presents with a cane and a walker); Negative for dizziness Cardio Chest Pain: Yes (Starts in chest and goes down his L arm. ) Frequency: daily Character: sharp Location: left chest Duration: brief Palpitations: Yes (Happens in PM) feels like its: pounding Resp Respiratory: Positive for Cough and pain on inspiration (When he is experiencingCP); Negative for SOB with activity or SOB at rest GI GI: Positive for heartburn; Negative nausea, vomiting or bright, red blood in stools : Negative for hematuria Musc Musc: Positive for balance problems (Pt presents with a cane and a walker) Neuro Neuro: Positive for headache(s); Negative for dizziness, lightheadedness, syncope or weakness Endo Endo: Negative for fatigue Cardiology Exam Const Appearance: cooperative, comfortable, no acute distress and well developed; Negative diaphoretic or ill appearing Nutritional Appearance: obese Orientation: alert and oriented x3 ambulating with cane and wheel chair Head Head: normal to inspection, normocephalic and atraumatic Ears: hearing grossly normal bilaterally Nose: external nose normal and Negative epistaxis Face and Sinus: face symmetric Eyes General: appearance normal, both eyes and all related structures Eyelids: eyelids normal Conjunctivae: conjunctivae normal; Negative scleral icterus EOM: EOM intact bilaterally Neck Neck: no JVD Carotids: normal carotid upstroke; Negative bruit Neck Mass: Negative Neck mass Chest Chest inspection: normal respiratory effort; Negative respiratory distress, audible wheezes or tachypneic Auscultation: Bilateral: Clear to Auscultation Cardio Rate: regular rate Rhythm: regular rhythm Heart sounds: S1 normal and S2 normal; Negative rub, gallop or murmur GI GI: obese Neuro General: patient alert, patient awake, patient oriented x3 and moves all extremities Skin Skin: no rashes or lesions noted Extremities Pulses: Normal: Right Posterior Tibial Pulse, Left Posterior Tibial Pulse, RightRadial Pulse and Left Radial Pulse Lower Extremity Edema: Trace: Bilateral Psych Psychological: normal affect Supplemental Info Supplemental Information Echocardiogram 03/16/24 Interpretation Summary Normal LV size. Left ventricular systolic function is normal. The left ventricular ejection fraction is 65 %. Moderate focal aortic valve calcification. Mild concentric left ventricular hypertrophy. Stage 1 diastolic dysfunction. Echocardiogram 07/30/18 Interpretation Summary Mild concentric left ventricular hypertrophy. The estimated ejection fraction is 55 %. Stage 1 diastolic dysfunction. There is borderline global hypokinesis of the left ventricle. Trivial tricuspid valve insufficiency. Unable to estimate RV systolic pressure/pulmonary artery pressure due to technically difficult study. Mild aortic stenosis. Trivial aortic valve insufficiency. There is no comparison study available. Stress Test 07/14/18 Conclusion: Normal pharmacologic myocardial perfusion stress test. Preserved ejection fraction. Cardiac Catheterization 03/16/24 CONCLUSIONS Totally occluded right coronary artery high-grade left circumflex arterystenosismoderate disease of the left anterior descending artery [id number] collaterals and chronic renal insufficiency RECOMMENDATIONS Urgent PCI to the left circumflex artery CORONARY ANGIOGRAPHY DOMINANCE: Co- Dominant LEFT HEART ASSESSMENT Left Ventricular Ejection Fraction: by Echo 65 % Normal LV wall motion. Normal LV wall motion LEFT MAIN: Mild calcification, Mild luminal irregularities less than 30% LEFT ANTERIOR DESCENDING ARTERY: Moderately diseased vessel with proximal 60% stenosis and mid 50% stenosis and mild diffuse distal disease and stel-[id number] collaterals CIRCUMFLEX ARTERY: Codominant vessel with first obtuse marginal branch being patent with mild disease and then after that a high-grade 95% stenosis noted in the AV groove branch going towards the second large obtuse marginal branch. RIGHT CORONARY ARTERY: PROX RCA: is occluded COLLATERAL FLOW: Collateral flow from Left to Right Carotid Duplex Ultrasound 09/2024 Interpretation Summary Mild (<50%) stenosis right extracranial internal carotid. Moderate (50-69%) stenosis left extracranial internal carotid. Patent and antegrade vertebrals bilaterally. Assessment and Plan Assessment and Plan (1) Coronary artery disease: Status: Acute Qualifiers: Coronary Disease-Associated Artery/Lesion type: [place] artery [place] vs. transplanted heart: [place] heart Associated angina: without angina Qualified Code(s): I25.10 - Atherosclerotic heart disease of [place] coronary artery without angina pectoris Plan: Patient has a history of coronary artery disease status post PCI in February 2024. Patient's most recent stress test [date and results]. Echocardiogram 03/16/2024 demonstrated EF 65% without wall motion abnormalities. Most recent lipid panel 03/16/2024 with LDL <55. Plan: Patient will continue medical management including aspirin, clopidogrel, statin. If his chest pain improves with isosorbide mononitrate, will deescalate to single-antiplatelet therapy after. Encouraged lifestyle and risk factor modification. (2) Chronic heart failure with preserved ejection fraction (HFpEF): Status: Acute Plan: Echocardiogram 03/16/2024 with LVEF 65%. Patient appears euvolemic on exam today. Plan: Will continue to monitor with history, physical exam, and echocardiograms as needed. Patient was recommended to monitor his weight and symptoms (SOB and edema) and should notify our office with any concerns. (3) Essential (primary) hypertension: Status: Acute Plan: BP elevated today. Plan: Will initiate isosorbide mononitrate for chest pain. Recommend patient monitor his BP in home environment and notify our office with persistentlyelevated or low readings. (4) Chest pain: Status: Acute Qualifiers: Chest pain type: unspecified Qualified Code(s): R07.9 - Chest pain, unspecified Plan: Chest pain as reported in HPI. EKG demonstrates normal sinus rhythm at a rate [id number] without any significant ST/twave changes. Plan: Will initiate isosorbide mononitrate. Will have patient follow-up in 6 weeks and assess for improvement. If this does not improve, will discuss furtherwork-up. Orders: Orders 12 Lead EKG performed by [facility] 03/08/25 I20.89 - Other forms of angina pectoris, I50.32 - Chronic diastolic (congestive) heart failure, R06.02 - Shortness of breath Medications: New isosorbide mononitrate ER 30 mg PO QAM 90 tabs 3RF Plan 1. Will initiate isosorbide mononitrate for chest pain. Patient will follow-up in 6 weeks or sooner, if needed. Thank you for allowing me to participate in the care of your patient. Please don't hesitate to call if any issues arise. This note was generated using a voice recognition system and there may be incorrect words, spelling, or punctuation that were not noted when reviewing theoffice note prior to saving. Portions of this documentation were copied and pasted from previous office visitnotes to provide a cohesive continuity of the history. The note has been reviewed, edited, and updated, as necessary. Plan Details Follow Up: 6 Weeks (SRD) Coding Level of Care Code Off vis,est,level 4 Diagnoses Coronary artery disease involving [place] coronary artery of [place] heart withoutangina pectoris I25.10 Coronary Disease-Associated Artery/Lesion type: [place] artery [place] vs. transplanted heart: [place] heart Associated angina: without angina Chronic heart failure with preserved ejection fraction (HFpEF) I50.32 Essential (primary) hypertension I10 Chest pain, unspecified type R07.9 Chest pain type: unspecified Coding Level of Care Code Off vis,est,level 4 Diagnoses Coronary artery disease involving [place] coronary artery of [place] heart withoutangina pectoris I25.10 Coronary Disease-Associated Artery/Lesion type: [place] artery [place] vs. transplanted heart: [place] heart Associated angina: without angina Chronic heart failure with preserved ejection fraction (HFpEF) I50.32 Essential (primary) hypertension I10 Chest pain, unspecified type R07.9 Chest pain type: unspecified Clinical Quality Measures Falls Risk Screening/Assistive Devices Have you fallen in the past year?: Yes Cardiac Ejection fraction %: 65 03/16/25 1340 <Electronically signed by Hossein RAMOS> Date _ Hossein RAMOS 03/16/25 1837<Electronically signed by Riley Childers MD> Cosigner Signature: Date (if applicable) Riley Childers MD CC: [facility] ~ [facility] Work Phone: [phone] Discharge summary Author [facility] Note Date/Time December 22, 2024 8:[address] [place] [address] System Medical Records Department [address] [place] [address] Transfer to [facility] MR#: [id number] Acct: [id number] Name: JUNIOR BOONE Rep #:[id number] : 1940 84 From: Kain Bhakta MD PCP: Dr. Kain Bhakta MD Status:ADM I N Certification of patient admission REQUIRED AT TIME OF ADMISSION. I CERTIFY THAT POST-HOSPITAL [facility] SERVICES ARE REQUIRED TO BE GIVEN ON AN IN-PATIENT BASIS BECAUSE OF THE ABOVE NAMED PATIENT'S NEED FOR LONG TERM CARE ON A CONTINUING BASIS FOR THE CONDITION(S) FOR WHICH HE/SHE WAS RECEIVING IN-PATIENT HOSPITAL SERVICES PRIOR TO HIS/HER TRANSFER TO THE [facility]. 12/22/242040<Electronically signed by Kain Bhakta MD> Diet Diet Order/Speech Therapy: INPATIENT Hospital Diet / Speech Therapy Order(s) 12/06/24 10:58 Diet: Cardiac - Heart Healthy Food consistency:: Regular Liquid Consistency:: Regular/Thin Dietary Modifications:: Consistent Carbohydrate Routine Orders/Code Status Code Status: DNRCC-A (No intubation.) DC O2, CPAP, BIPAP needs Home O2 Discharge instructions: Yes Type of respiratory needs?: Oxygen (2) Oxygen frequency: Continuous Continuous oxygen liters per minute: 2 Wound(s) Left knee: Wound Type: Abrasion Left castrejon: Wound Type: Abrasion Right castrejon: Wound Type: Abrasion Therapies Weight Bearing: Weight bearing as tolerated Extremity Affected:: Bilateral Lower Physical Therapy: Eval and Treat Occupational Therapy: Eval and Treat Problem/Diagnosis (1) Debility: Status: Acute Code(s): R53.81 - Other malaise (2) Encephalopathy: Status: Acute Code(s): G93.40 - Encephalopathy, unspecified (3) Hypoglycemia: Status: Acute Code(s): E16.2 - Hypoglycemia, unspecified (4) Type 2 diabetes mellitus with hyperglycemia: Status: Acute Code(s): E11.65 - Type 2 diabetes mellitus with hyperglycemia (5) Chronic heart failure with preserved ejection fraction (HFpEF): Status: Acute Code(s): I50.32 - Chronic diastolic (congestive) heart failure (6) HLD (hyperlipidemia): Status: Chronic Code(s): E78.5 - Hyperlipidemia, unspecified (7) Hypothyroidism: Status: Acute Code(s): E03.9 - Hypothyroidism, unspecified (8) Diabetic polyneuropathy: Status: Acute Code(s): E11.42 - Type 2 diabetes mellitus with diabetic polyneuropathy (9) Coronary artery disease: Status: Acute Code(s): I25.10 - Atherosclerotic heart disease of [place] coronary artery without angina pectoris (10) COPD (chronic obstructive pulmonary disease): Status: Chronic Code(s): J44.9 - Chronic obstructive pulmonary disease, unspecified (11) Chronic hypoxemic respiratory failure: Status: Chronic Code(s): J96.11 - Chronic respiratory failure with hypoxia (12) BPH (benign prostatic hyperplasia): Status: Acute Code(s): N40.0 - Benign prostatic hyperplasia without lower urinary tract symptoms (13) CKD (chronic kidney disease), stage IV: Status: Chronic Code(s): N18.4 - Chronic kidney disease, stage 4 (severe) (14) Morbid obesity: Status: Acute Code(s): E66.01 - Morbid (severe) obesity due to excess calories Plan 84 year old male with below past medical history hospitalized for encephalopathy2/2 hypoglycemia, admitted to TCU with debility, here for rehabilitation, strengthening, prior to discharge home alone. * Debility - PT/OT. * Pain - Tylenol 1000mg q6 prn pain (1-10). * Bowel - senna/colace 1 tablet bid, Magnesium citrate 300mL daily prn * Adult immunization - Administer pneumonia vaccine, covid vaccine, flu vaccine as appropriate. * DVT prophylaxis - Hold, on DAPT, and anemic. * COPD - Fluticasone/Salmeterol 232-14 1 puff bid, Incruse 1 puff daily, Albuterol 2.5mg neb q2h prn, oxygen chronic. * Hypertension - Coreg 6.25mg bidcm, Amlodipine 5mg daily. * Iron deficiency anemia - Ferrex 150mg daily, Vitamin C 500mg daily. * Coronary artery disease s/p stent - Coreg 6.25mg bidcm, Ranexa 500mg bid, Plavix 75mg daily, Aspirin 81mg daily, NTG 0.4mg sl q5m prn chest pain. * Hyperlipidemia - Atorvastatin 40mg qhs. * Chronic HFpEF - Coreg 6.25mg bidcm, Furosemide 40mg bidlx. * Diabetic polyneuropathy - Gabpentin 300mg bid. * Diabetes Mellitus II - goal A1c < 8.5, A1c 6.9, Glargine 15 units qhs. * Hypothyroidism - Levothyroxine 25mcg daily. * GERD - Pantoprazole 40mg daily. * BPH - Tamsulosin 0.4mg daily. The following psychotropic medication was present on admission: Trazodone 25mg qhs. Psychotropic medication therapy is indicated for a diagnosis of: Insomnia. Based on my clinical evaluation, continuation of the medication is necessary at this time. Gradual dose reduction plan (select one): ____ GDR will be attempted. Will monitor patient symptoms and behaviors in response to GDR. __x__ GRD contraindicated. 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 Allergies/Procedures Done in Hospital Allergies No Known Allergies Allergy (Verified 12/02/24 10:16) Procedures: None Type of Care/Length of Stay Estimated LOS: More Than 30 Days Type of Care Needed: Intermediate Rehab Potential: Fair Prognosis: Fair Additional Orders/Day of Discharge Additional Orders: part B therapies Day of Discharge: 12/25/24 Dietary and Speech Recommendations Dietitian Recommendations/Changes: Continue cardiac, consistent carbohydrate diet to manage medical conditions. Will monitor weight trends. Discharge Plan Admission Admit Date/Time: 12/05/24 18:20 Primary Reason for Your Visit: Debility. Attending Provider: Kain Bhakta Chi Primary Care Provider: Kain Bhakta Chi Instructions Additional Instructions / Restrictions: Discharge 12/25/2024, [facility], intermediate, Medicaid pending. Discharge Orders/Prescriptions Prescriptions: New sennosides-docusate sodium [Stimulant Laxative Plus] 8.6-50 mg Tablet 1 tab PO BID Qty: 0 0RF pantoprazole 40 mg Tablet,Delayed Release (Dr/Ec) 40 mg PO DAILY Qty: 0 0RF magnesium citrate Solution 300 ml PO DAILY PRN (Reason: Constipation) Qty: 0 0RF insulin lispro [Humalog KwikPen Insulin] 100 unit/mL Insulin Pen 12 unit subcut TIDAC Qty: 0 0RF Incruse Ellipta 62.5 mcg/actuation Blister With Device 1 inh inhalation DAILY Qty: 0 0RF fluticasone propion-salmeterol 232-14 mcg/actuation Aerosol Powdr Breath Activated 1 inh inhalation Q12 Qty: 0 0RF insulin glargine-yfgn 100 unit/mL (3 mL) Insulin Pen 36 unit subcut QHS Qty: 0 0RF Continued ascorbate calcium (vitamin C) 500 mg tablet 500 mg PO DAILY polysaccharide iron complex [Ferrex 150] 150 mg iron capsule 150 mg PO DAILY ranolazine 500 mg tablet extended release 12 hr 500 mg PO BID Qty: 60 11RF gabapentin 300 mg capsule 300 mg PO BID levothyroxine 25 mcg Tablet 25 mcg PO DAILY furosemide 40 mg Tablet 40 mg PO BIDLX 30 Days Qty: 60 0RF atorvastatin 40 mg Tablet 40 mg PO QHS 30 Days Qty: 30 0RF carvedilol 6.25 mg Tablet 6.25 mg PO BID 30 Days Qty: 60 0RF amlodipine 5 mg Tablet 5 mg PO DAILY 30 Days Qty: 30 0RF tamsulosin 0.4 mg Capsule 0.4 mg PO DAILY@1730 30 Days Qty: 30 0RF nitroglycerin 0.4 mg Tablet, Sublingual 0.4 mg sublingual Q5M PRN (Reason: Cardiac/Chest Pain) Qty: 30 2RF aspirin 81 mg Tablet,Delayed Release (Dr/Ec) 81 mg PO BREAKFAST Qty: 30 2RF clopidogrel 75 mg tablet 75 mg PO DAILY trazodone 50 mg tablet 25 mg PO QHS Discontinued famotidine 40 MG tablet 40 mg PO DAILY glimepiride 4 mg Tablet 4 mg PO DAILY insulin degludec [Tresiba FlexTouch U-100] 100 unit/mL (3 mL) insulin pen 15 unit subcut QHS Qty: 15 0RF Referrals / Follow Up: Kain Bhakta Chi, MD [Primary Care Provider] - 12/29/24 11:40 am Disposition Disposition (needs filled in before D/C Order can be placed): NonSkilled NH/Intermed Care (6) HLD (hyperlipidemia) Qualifiers: Hyperlipidemia type: pure hypercholesterolemia Qualified Code(s): E78.00 - Pure hypercholesterolemia, unspecified; E78.0 - Pure hypercholesterolemia (10) COPD (chronic obstructive pulmonary disease) Qualifiers: COPD type: emphysema Emphysema type: centrilobular Qualified Code(s): J43.2 - Centrilobular emphysema 12/22/242040 <Electronically signed by Kain Bhakta MD> Cosigner Signature (if applicable): CC: Dr. Kain Bhakta MD ~ [facility] Work Phone: [phone]) [phone] Discharge summary Author Kain Yony [facility] Note Date/Time December 22, 2024 8:4 0pm [facility] Medical Records Department [address] [place] [address] Discharge Summary 12/22/242031 MR#: [id number] Acct: [id number] Name: JUNIOR BOONE Rep #:[id number] : 1940 84 From: Kain Bhakta MD PCP: Dr. Kain Bhakta MD Status:ADM I N Location: [place] [address] Providers Date of Admission: 12/05/24 Primary Care Physician: Dr. Kain Bhakta MD Reason For Visit: ENCEPHALOPATHY & HYPOGLYCEMIA Diagnosis Discharge Diagnosis (1) Debility: Status: Acute Code(s): R53.81 - Other malaise (2) Encephalopathy: Status: Acute Code(s): G93.40 - Encephalopathy, unspecified (3) Hypoglycemia: Status: Acute Code(s): E16.2 - Hypoglycemia, unspecified (4) Type 2 diabetes mellitus with hyperglycemia: Status: Acute Code(s): E11.65 - Type 2 diabetes mellitus with hyperglycemia (5) Chronic heart failure with preserved ejection fraction (HFpEF): Status: Acute Code(s): I50.32 - Chronic diastolic (congestive) heart failure (6) HLD (hyperlipidemia): Status: Chronic Code(s): E78.5 - Hyperlipidemia, unspecified Qualifiers: Hyperlipidemia type: pure hypercholesterolemia Qualified Code(s): E78.00 - Pure hypercholesterolemia, unspecified; E78.0 - Pure hypercholesterolemia (7) Hypothyroidism: Status: Acute Code(s): E03.9 - Hypothyroidism, unspecified (8) Diabetic polyneuropathy: Status: Acute Code(s): E11.42 - Type 2 diabetes mellitus with diabetic polyneuropathy (9) Coronary artery disease: Status: Acute Code(s): I25.10 - Atherosclerotic heart disease of [place] coronary artery without angina pectoris (10) COPD (chronic obstructive pulmonary disease): Status: Chronic Code(s): J44.9 - Chronic obstructive pulmonary disease, unspecified Qualifiers: COPD type: emphysema Emphysema type: centrilobular Qualified Code(s): J43.2 - Centrilobular emphysema (11) Chronic hypoxemic respiratory failure: Status: Chronic Code(s): J96.11 - Chronic respiratory failure with hypoxia (12) BPH (benign prostatic hyperplasia): Status: Acute Code(s): N40.0 - Benign prostatic hyperplasia without lower urinary tract symptoms (13) CKD (chronic kidney disease), stage IV: Status: Chronic Code(s): N18.4 - Chronic kidney disease, stage 4 (severe) (14) Morbid obesity: Status: Acute Code(s): E66.01 - Morbid (severe) obesity due to excess calories Plan 84 year old male with below past medical history hospitalized for encephalopathy2/2 hypoglycemia, admitted to TCU with debility, here for rehabilitation, strengthening, prior to discharge home alone. * Debility - PT/OT. * Pain - Tylenol 1000mg q6 prn pain (1-10). * Bowel - senna/colace 1 tablet bid, Magnesium citrate 300mL daily prn * Adult immunization - Administer pneumonia vaccine, covid vaccine, flu vaccine as appropriate. * DVT prophylaxis - Hold, on DAPT, and anemic. * COPD - Fluticasone/Salmeterol 232-14 1 puff bid, Incruse 1 puff daily, Albuterol 2.5mg neb q2h prn, oxygen chronic. * Hypertension - Coreg 6.25mg bidcm, Amlodipine 5mg daily. * Iron deficiency anemia - Ferrex 150mg daily, Vitamin C 500mg daily. * Coronary artery disease s/p stent - Coreg 6.25mg bidcm, Ranexa 500mg bid, Plavix 75mg daily, Aspirin 81mg daily, NTG 0.4mg sl q5m prn chest pain. * Hyperlipidemia - Atorvastatin 40mg qhs. * Chronic HFpEF - Coreg 6.25mg bidcm, Furosemide 40mg bidlx. * Diabetic polyneuropathy - Gabpentin 300mg bid. * Diabetes Mellitus II - goal A1c < 8.5, A1c 6.9, Glargine 15 units qhs. * Hypothyroidism - Levothyroxine 25mcg daily. * GERD - Pantoprazole 40mg daily. * BPH - Tamsulosin 0.4mg daily. The following psychotropic medication was present on admission: Trazodone 25mg qhs. Psychotropic medication therapy is indicated for a diagnosis of: Insomnia. Based on my clinical evaluation, continuation of the medication is necessary at this time. Gradual dose reduction plan (select one): ____ GDR will be attempted. Will monitor patient symptoms and behaviors in response to GDR. __x__ GRD contraindicated. 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 Medications at Discharge Home Medications levothyroxine 25 mcg tablet 25 mcg PO DAILY THYROID 07/09/22 ascorbate calcium (vitamin C) 500 mg tablet 500 mg PO DAILY SUPPLEMENT 03/09/24 gabapentin 300 mg capsule 300 mg PO BID NEUROPATHY 03/09/24 polysaccharide iron complex 150 mg iron capsule (Ferrex) 150 mg PO DAILY SUPPLEMENT 03/09/24 aspirin 81 mg tablet,delayed release 81 mg PO BREAKFAST heart #30 tabs 03/23/24 nitroglycerin 0.4 mg sublingual tablet 0.4 mg sublingual Q5M PRN Cardiac/Chest Pain #30 tabs 03/23/24 amlodipine 5 mg tablet 5 mg PO DAILY BP 30 days #30 tabs 04/07/24 atorvastatin 40 mg tablet 40 mg PO QHS Cholesterol 30 days #30 tabs 04/07/24 carvedilol 6.25 mg tablet 6.25 mg PO BID BP 30 days #60 tabs 04/07/24 furosemide 40 mg tablet 40 mg PO BIDLX Edema 30 days #60 tabs 04/07/24 tamsulosin 0.4 mg capsule 0.4 mg PO DAILY@1730 Urinary Retention 30 days #30 caps 04/07/24 ranolazine 500 mg tablet,extended release,12 hr 500 mg PO BID Heart #60 tabs 09/13/24 clopidogrel 75 mg tablet 75 mg PO DAILY blood thinner 11/21/24 trazodone 50 mg tablet 25 mg PO QHS sleep 11/21/24 fluticasone 232 mcg-salmeterol 14 mcg/actuation breath activated powdr 1 inh inhalation Q12 #0 ea 12/22/24 insulin glargine-yfgn 100 unit/mL (3 mL) subcutaneous pen 36 unit (0.36 mL) subcut QHS #0 mL 12/22/24 insulin lispro 100 unit/mL subcutaneous pen (Humalog KwikPen (U-100) Insulin) 12unit (0.12 mL) subcut TIDAC #0 mL 12/22/24 magnesium citrate 300 ml PO DAILY PRN Constipation #0 mL 12/22/24 pantoprazole 40 mg tablet,delayed release 40 mg PO DAILY #0 tabs 12/22/24 sennosides 8.6 mg-docusate sodium 50 mg tablet (Stimulant Laxative Plus) 1 tab PO BID #0 tabs 12/22/24 umeclidinium 62.5 mcg/actuation blister powder for inhalation (Incruse Ellipta) 1 inh inhalation DAILY #0 ea 12/22/24 Hospital Course Operations None Procedures None Summary of Care Provided Minutes Spent on Discharge: 35 Hospital Course: 84 year old male with below past medical history hospitalized for encephalopathy2/2 hypoglycemia, admitted to TCU with debility, here for rehabilitation, strengthening, prior to discharge home alone. Discharge 12/25/2024, [facility], intermediate, Medicaid pending. Encephalopathy resolved. Physical Exam Const alert General Appearance: cooperative HEENT normocephalic Eyes PERRL and EOMs intact bilaterally Neck supple, no JVD and no carotid bruits Resp normal respiratory effort, normal air movement and clear to auscultation bilaterally Cardio regular rate and regular rhythm GI normal to inspection, nondistended, normoactive bowel sounds, non-tender and non-distended Extremity normal capillary refill General Extremity: Negative for edema Skin no rashes or lesions noted General Skin Exam: no breakdown Psych affect normal Appearance: appropriate Weight / BMI Weight Weight: 105.007 kg Body Mass Index (BMI) 37.2 ABG / Lab / Microbiology Data 12/20/24 05:31 12/20/24 05:31 Laboratory: Laboratory Results - last 24 hr 12/21/24 21:48: POC Glucose 104 12/21/24 22:57: POC Glucose 180 H 12/22/24 05:58: POC Glucose 232 H 12/22/24 11:30: POC Glucose 194 H 12/22/24 16:12: POC Glucose 189 H D/C Instructions Discharge Activity: Return to Normal Activity, May Shower and Use Walker Weight Bearing Status: Weight bearing as tolerated Call your doctor if you observe: Fever of 101 or Higher, Inability to urinate, Inability to have a bowel movement, Shortness of breath, Dizziness, Fainting spells, Swelling in the ankles, Chest pain and Uncontrolled pain DC O2, CPAP, BIPAP Needs Home O2 Discharge instructions: Yes Type of respiratory needs?: Oxygen (2) Oxygen frequency: Continuous Continuous oxygen liters per minute: 2 DC home with Oxygen: Yes Home O2 MD Review: I have reviewed the oxygen testing, and the patient qualifies for home oxygen equipment and portability. The patient is mobile in the home and the community. Additional Instructions: Discharge 12/25/2024, [facility], intermediate, Medicaid pending. Meaningful Use Info Meaningful Use Meaningful Use Diagnoses (Choose all that apply): None applicable Discharge Plan Admission Admit Date/Time: 12/05/24 18:20 Primary Reason for Your Visit: Debility. Attending Provider: Kain Bhakta Chi Primary Care Provider: Kain Bhakta Chi Instructions Additional Instructions / Restrictions: Discharge 12/25/2024, [facility], intermediate, Medicaid pending. Discharge Orders/Prescriptions Prescriptions: New sennosides-docusate sodium [Stimulant Laxative Plus] 8.6-50 mg Tablet 1 tab PO BID Qty: 0 0RF pantoprazole 40 mg Tablet,Delayed Release (Dr/Ec) 40 mg PO DAILY Qty: 0 0RF magnesium citrate Solution 300 ml PO DAILY PRN (Reason: Constipation) Qty: 0 0RF insulin lispro [Humalog KwikPen Insulin] 100 unit/mL Insulin Pen 12 unit subcut TIDAC Qty: 0 0RF Incruse Ellipta 62.5 mcg/actuation Blister With Device 1 inh inhalation DAILY Qty: 0 0RF fluticasone propion-salmeterol 232-14 mcg/actuation Aerosol Powdr Breath Activated 1 inh inhalation Q12 Qty: 0 0RF insulin glargine-yfgn 100 unit/mL (3 mL) Insulin Pen 36 unit subcut QHS Qty: 0 0RF Continued ascorbate calcium (vitamin C) 500 mg tablet 500 mg PO DAILY polysaccharide iron complex [Ferrex 150] 150 mg iron capsule 150 mg PO DAILY ranolazine 500 mg tablet extended release 12 hr 500 mg PO BID Qty: 60 11RF gabapentin 300 mg capsule 300 mg PO BID levothyroxine 25 mcg Tablet 25 mcg PO DAILY furosemide 40 mg Tablet 40 mg PO BIDLX 30 Days Qty: 60 0RF atorvastatin 40 mg Tablet 40 mg PO QHS 30 Days Qty: 30 0RF carvedilol 6.25 mg Tablet 6.25 mg PO BID 30 Days Qty: 60 0RF amlodipine 5 mg Tablet 5 mg PO DAILY 30 Days Qty: 30 0RF tamsulosin 0.4 mg Capsule 0.4 mg PO DAILY@1730 30 Days Qty: 30 0RF nitroglycerin 0.4 mg Tablet, Sublingual 0.4 mg sublingual Q5M PRN (Reason: Cardiac/Chest Pain) Qty: 30 2RF aspirin 81 mg Tablet,Delayed Release (Dr/Ec) 81 mg PO BREAKFAST Qty: 30 2RF clopidogrel 75 mg tablet 75 mg PO DAILY trazodone 50 mg tablet 25 mg PO QHS Discontinued famotidine 40 MG tablet 40 mg PO DAILY glimepiride 4 mg Tablet 4 mg PO DAILY insulin degludec [Tresiba FlexTouch U-100] 100 unit/mL (3 mL) insulin pen 15 unit subcut QHS Qty: 15 0RF Referrals / Follow Up: Kain Bhakta Chi, MD [Primary Care Provider] - 12/29/24 11:40 am Disposition Disposition (needs filled in before D/C Order can be placed): NonSkilled NH/Intermed Care 12/22/242039 <Electronically signed by Kain Bhakta MD> Cosigner Signature (if applicable): CC: Dr. Kain Bhakta MD~ Signed [facility] Work Phone: [phone]) 900-863508-07-2025 Discharge summary [facility] System Medical Records Department [address] [place] [address] Transfer to [facility] MR#: [id number] Acct: [id number] Name: JUNIOR BOONE Rep #:[id number] : 1940 84 From: Kain Bhakta MD PCP: Dr. Kain Bhakta MD Status:ADM I N Certification of patient admission REQUIRED AT TIME OF ADMISSION. I CERTIFY THAT POST-HOSPITAL ECF SERVICES ARE REQUIRED TO BE GIVEN ON AN IN-PATIENT BASIS BECAUSE OF THE ABOVE NAMED PATIENT'S NEED FOR LONG TERM CARE ON A CONTINUING BASIS FOR THE CONDITION(S) FOR WHICH HE/SHE WAS RECEIVING IN-PATIENT HOSPITAL SERVICES PRIOR TO HIS/HER TRANSFER TO THE ECF. 12/22/242040 Diet Diet Order/Speech Therapy: INPATIENT Hospital Diet / Speech Therapy Order(s) 12/06/24 10:58 Diet: Cardiac - Heart Healthy Food consistency:: Regular Liquid Consistency:: Regular/Thin Dietary Modifications:: Consistent Carbohydrate Routine Orders/Code Status Code Status: DNRCC-A (No intubation.) DC O2, CPAP, BIPAP needs Home O2 Discharge instructions: Yes Type of respiratory needs?: Oxygen (2) Oxygen frequency: Continuous Continuous oxygen liters per minute: 2 Wound(s) Left knee: Wound Type: Abrasion Left castrejon: Wound Type: Abrasion Right castrejon: Wound Type: Abrasion Therapies Weight Bearing: Weight bearing as tolerated Extremity Affected:: Bilateral Lower Physical Therapy: Eval and Treat Occupational Therapy: Eval and Treat Problem/Diagnosis (1) Debility: Status: Acute Code(s): R53.81 - Other malaise (2) Encephalopathy: Status: Acute Code(s): G93.40 - Encephalopathy, unspecified (3) Hypoglycemia: Status: Acute Code(s): E16.2 - Hypoglycemia, unspecified (4) Type 2 diabetes mellitus with hyperglycemia: Status: Acute Code(s): E11.65 - Type 2 diabetes mellitus with hyperglycemia (5) Chronic heart failure with preserved ejection fraction (HFpEF): Status: Acute Code(s): I50.32 - Chronic diastolic (congestive) heart failure (6) HLD (hyperlipidemia): Status: Chronic Code(s): E78.5 - Hyperlipidemia, unspecified (7) Hypothyroidism: Status: Acute Code(s): E03.9 - Hypothyroidism, unspecified (8) Diabetic polyneuropathy: Status: Acute Code(s): E11.42 - Type 2 diabetes mellitus with diabetic polyneuropathy (9) Coronary artery disease: Status: Acute Code(s): I25.10 - Atherosclerotic heart disease of [place] coronary artery without angina pectoris (10) COPD (chronic obstructive pulmonary disease): Status: Chronic Code(s): J44.9 - Chronic obstructive pulmonary disease, unspecified (11) Chronic hypoxemic respiratory failure: Status: Chronic Code(s): J96.11 - Chronic respiratory failure with hypoxia (12) BPH (benign prostatic hyperplasia): Status: Acute Code(s): N40.0 - Benign prostatic hyperplasia without lower urinary tract symptoms (13) CKD (chronic kidney disease), stage IV: Status: Chronic Code(s): N18.4 - Chronic kidney disease, stage 4 (severe) (14) Morbid obesity: Status: Acute Code(s): E66.01 - Morbid (severe) obesity due to excess calories Plan 84 year old male with below past medical history hospitalized for encephalopathy2/2 hypoglycemia, admitted to TCU with debility, here for rehabilitation, strengthening, prior to discharge home alone. * Debility - PT/OT. * Pain - Tylenol 1000mg q6 prn pain (1-10). * Bowel - senna/colace 1 tablet bid, Magnesium citrate 300mL daily prn * Adult immunization - Administer pneumonia vaccine, covid vaccine, flu vaccine as appropriate. * DVT prophylaxis - Hold, on DAPT, and anemic. * COPD - Fluticasone/Salmeterol 232-14 1 puff bid, Incruse 1 puff daily, Albuterol 2.5mg neb q2h prn, oxygen chronic. * Hypertension - Coreg 6.25mg bidcm, Amlodipine 5mg daily. * Iron deficiency anemia - Ferrex 150mg daily, Vitamin C 500mg daily. * Coronary artery disease s/p stent - Coreg 6.25mg bidcm, Ranexa 500mg bid, Plavix 75mg daily, Aspirin 81mg daily, NTG 0.4mg sl q5m prn chest pain. * Hyperlipidemia - Atorvastatin 40mg qhs. * Chronic HFpEF - Coreg 6.25mg bidcm, Furosemide 40mg bidlx. * Diabetic polyneuropathy - Gabpentin 300mg bid. * Diabetes Mellitus II - goal A1c < 8.5, A1c 6.9, Glargine 15 units qhs. * Hypothyroidism - Levothyroxine 25mcg daily. * GERD - Pantoprazole 40mg daily. * BPH - Tamsulosin 0.4mg daily. The following psychotropic medication was present on admission: Trazodone 25mg qhs. Psychotropic medication therapy is indicated for a diagnosis of: Insomnia. Based on my clinical evaluation, continuation of the medication is necessary at this time. Gradual dose reduction plan (select one): ____ GDR will be attempted. Will monitor patient symptoms and behaviors in response to GDR. __x__ GRD contraindicated. 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 Allergies/Procedures Done in Hospital Allergies No Known Allergies Allergy (Verified 12/02/24 10:16) Procedures: None Type of Care/Length of Stay Estimated LOS: More Than 30 Days Type of Care Needed: Intermediate Rehab Potential: Fair Prognosis: Fair Additional Orders/Day of Discharge Additional Orders: part B therapies Day of Discharge: 12/25/24 Dietary and Speech Recommendations Dietitian Recommendations/Changes: Continue cardiac, consistent carbohydrate diet to manage medicalconditions. Will monitor weight trends. Discharge Plan Admission Admit Date/Time: 12/05/24 18:20 Primary Reason for Your Visit: Debility. Attending Provider: Kain Bhakta Chi Primary Care Provider: Kain Bhakta Chi Instructions Additional Instructions / Restrictions: Discharge 12/25/2024, [facility], intermediate, Medicaid pending. Discharge Orders/Prescriptions Prescriptions: New sennosides-docusate sodium [Stimulant Laxative Plus] 8.6-50 mg Tablet 1 tab PO BID Qty: 0 0RF pantoprazole 40 mg Tablet,Delayed Release (Dr/Ec) 40 mg PO DAILY Qty: 0 0RF magnesium citrate Solution 300 ml PO DAILY PRN (Reason: Constipation) Qty: 0 0RF insulin lispro [Humalog KwikPen Insulin] 100 unit/mL Insulin Pen 12 unit subcut TIDAC Qty: 0 0RF Incruse Ellipta 62.5 mcg/actuation Blister With Device 1 inh inhalation DAILY Qty: 0 0RF fluticasone propion-salmeterol 232-14 mcg/actuation Aerosol Powdr Breath Activated 1 inh inhalation Q12 Qty: 0 0RF insulin glargine-yfgn 100 unit/mL (3 mL) Insulin Pen 36 unit subcut QHS Qty: 0 0RF Continued ascorbate calcium (vitamin C) 500 mg tablet 500 mg PO DAILY polysaccharide iron complex [Ferrex 150] 150 mg iron capsule 150 mg PO DAILY ranolazine 500 mg tablet extended release 12 hr 500 mg PO BID Qty: 60 11RF gabapentin 300 mg capsule 300 mg PO BID levothyroxine 25 mcg Tablet 25 mcg PO DAILY furosemide 40 mg Tablet 40 mg PO BIDLX 30 Days Qty: 60 0RF atorvastatin 40 mg Tablet 40 mg PO QHS 30 Days Qty: 30 0RF carvedilol 6.25 mg Tablet 6.25 mg PO BID 30 Days Qty: 60 0RF amlodipine 5 mg Tablet 5 mg PO DAILY 30 Days Qty: 30 0RF tamsulosin 0.4 mg Capsule 0.4 mg PO DAILY@1730 30 Days Qty: 30 0RF nitroglycerin 0.4 mg Tablet, Sublingual 0.4 mg sublingual Q5M PRN (Reason: Cardiac/Chest Pain) Qty: 30 2RF aspirin 81 mg Tablet,Delayed Release (Dr/Ec) 81 mg PO BREAKFAST Qty: 30 2RF clopidogrel 75 mg tablet 75 mg PO DAILY trazodone 50 mg tablet 25 mg PO QHS Discontinued famotidine 40 MG tablet 40 mg PO DAILY glimepiride 4 mg Tablet 4 mg PO DAILY insulin degludec [Tresiba FlexTouch U-100] 100 unit/mL (3 mL) insulin pen 15 unit subcut QHS Qty: 15 0RF Referrals / Follow Up: Kain Bhakta Chi, MD [Primary Care Provider] - 12/29/24 11:40 am Disposition Disposition (needs filled in before D/C Order can be placed): NonSkilled NH/Intermed Care (6) HLD (hyperlipidemia) Qualifiers: Hyperlipidemia type: pure hypercholesterolemia Qualified Code(s): E78.00 - Pure hypercholesterolemia, unspecified; E78.0 - Pure hypercholesterolemia (10) COPD (chronic obstructive pulmonary disease) Qualifiers: COPD type: emphysema Emphysema type: centrilobular Qualified Code(s): J43.2 - Centrilobular emphysema 12/22/242040 Cosigner Signature (if applicable): CC: Dr. Kain Bhakta MD ~ [facility]08-07-2025 Discharge summary [facility] Medical Records Department [address] [place] [address] Discharge Summary 12/22/242031 MR#: [id number] Acct: [id number] Name: JUNIOR BOONE Rep #:[id number] : 1940 84 From: Kain Bhakta MD PCP: Dr. Kain Bhakta MD Status:ADM I N Location: [place] [address] Providers Date of Admission: 12/05/24 Primary Care Physician: Dr. Kain Bhakta MD Reason For Visit: ENCEPHALOPATHY & HYPOGLYCEMIA Diagnosis Discharge Diagnosis (1) Debility: Status: Acute Code(s): R53.81 - Other malaise (2) Encephalopathy: Status: Acute Code(s): G93.40 - Encephalopathy, unspecified (3) Hypoglycemia: Status: Acute Code(s): E16.2 - Hypoglycemia, unspecified (4) Type 2 diabetes mellitus with hyperglycemia: Status: Acute Code(s): E11.65 - Type 2 diabetes mellitus with hyperglycemia (5) Chronic heart failure with preserved ejection fraction (HFpEF): Status: Acute Code(s): I50.32 - Chronic diastolic (congestive) heart failure (6) HLD (hyperlipidemia): Status: Chronic Code(s): E78.5 - Hyperlipidemia, unspecified Qualifiers: Hyperlipidemia type: pure hypercholesterolemia Qualified Code(s): E78.00 - Pure hypercholesterolemia, unspecified; E78.0 - Pure hypercholesterolemia (7) Hypothyroidism: Status: Acute Code(s): E03.9 - Hypothyroidism, unspecified (8) Diabetic polyneuropathy: Status: Acute Code(s): E11.42 - Type 2 diabetes mellitus with diabetic polyneuropathy (9) Coronary artery disease: Status: Acute Code(s): I25.10 - Atherosclerotic heart disease of [place] coronary artery without angina pectoris (10) COPD (chronic obstructive pulmonary disease): Status: Chronic Code(s): J44.9 - Chronic obstructive pulmonary disease, unspecified Qualifiers: COPD type: emphysema Emphysema type: centrilobular Qualified Code(s): J43.2 - Centrilobular emphysema (11) Chronic hypoxemic respiratory failure: Status: Chronic Code(s): J96.11 - Chronic respiratory failure with hypoxia (12) BPH (benign prostatic hyperplasia): Status: Acute Code(s): N40.0 - Benign prostatic hyperplasia without lower urinary tract symptoms (13) CKD (chronic kidney disease), stage IV: Status: Chronic Code(s): N18.4 - Chronic kidney disease, stage 4 (severe) (14) Morbid obesity: Status: Acute Code(s): E66.01 - Morbid (severe) obesity due to excess calories Plan 84 year old male with below past medical history hospitalized for encephalopathy2/2 hypoglycemia, admitted to TCU with debility, here for rehabilitation, strengthening, prior to discharge home alone. * Debility - PT/OT. * Pain - Tylenol 1000mg q6 prn pain (1-10). * Bowel - senna/colace 1 tablet bid, Magnesium citrate 300mL daily prn * Adult immunization - Administer pneumonia vaccine, covid vaccine, flu vaccine as appropriate. * DVT prophylaxis - Hold, on DAPT, and anemic. * COPD - Fluticasone/Salmeterol 232-14 1 puff bid, Incruse 1 puff daily, Albuterol 2.5mg neb q2h prn, oxygen chronic. * Hypertension - Coreg 6.25mg bidcm, Amlodipine 5mg daily. * Iron deficiency anemia - Ferrex 150mg daily, Vitamin C 500mg daily. * Coronary artery disease s/p stent - Coreg 6.25mg bidcm, Ranexa 500mg bid, Plavix 75mg daily, Aspirin 81mg daily, NTG 0.4mg sl q5m prn chest pain. * Hyperlipidemia - Atorvastatin 40mg qhs. * Chronic HFpEF - Coreg 6.25mg bidcm, Furosemide 40mg bidlx. * Diabetic polyneuropathy - Gabpentin 300mg bid. * Diabetes Mellitus II - goal A1c < 8.5, A1c 6.9, Glargine 15 units qhs. * Hypothyroidism - Levothyroxine 25mcg daily. * GERD - Pantoprazole 40mg daily. * BPH - Tamsulosin 0.4mg daily. The following psychotropic medication was present on admission: Trazodone 25mg qhs. Psychotropic medication therapy is indicated for a diagnosis of: Insomnia. Based on my clinical evaluation, continuation of the medication is necessary at this time. Gradual dose reduction plan (select one): ____ GDR will be attempted. Will monitor patient symptoms and behaviors in response to GDR. __x__ GRD contraindicated. 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 Medications at Discharge Home Medications levothyroxine 25 mcg tablet 25 mcg PO DAILY THYROID 07/09/22 ascorbate calcium (vitamin C) 500 mg tablet 500 mg PO DAILY SUPPLEMENT 03/09/24 gabapentin 300 mg capsule 300 mg PO BID NEUROPATHY 03/09/24 polysaccharide iron complex 150 mg iron capsule (Ferrex) 150 mg PO DAILY SUPPLEMENT 03/09/24 aspirin 81 mg tablet,delayed release 81 mg PO BREAKFAST heart #30 tabs 03/23/24 nitroglycerin 0.4 mg sublingual tablet 0.4 mg sublingual Q5M PRN Cardiac/Chest Pain #30 tabs 03/23/24 amlodipine 5 mg tablet 5 mg PO DAILY BP 30 days #30 tabs 04/07/24 atorvastatin 40 mg tablet 40 mg PO QHS Cholesterol 30 days #30 tabs 04/07/24 carvedilol 6.25 mg tablet 6.25 mg PO BID BP 30 days #60 tabs 04/07/24 furosemide 40 mg tablet 40 mg PO BIDLX Edema 30 days #60 tabs 04/07/24 tamsulosin 0.4 mg capsule 0.4 mg PO DAILY@1730 Urinary Retention 30 days #30 caps 04/07/24 ranolazine 500 mg tablet,extended release,12 hr 500 mg PO BID Heart #60 tabs 09/13/24 clopidogrel 75 mg tablet 75 mg PO DAILY blood thinner 11/21/24 trazodone 50 mg tablet 25 mg PO QHS sleep 11/21/24 fluticasone 232 mcg-salmeterol 14 mcg/actuation breath activated powdr 1 inh inhalation Q12 #0 ea 12/22/24 insulin glargine-yfgn 100 unit/mL (3 mL) subcutaneous pen 36 unit (0.36 mL) subcut QHS #0 mL 12/22/24 insulin lispro 100 unit/mL subcutaneous pen (Humalog KwikPen (U-100) Insulin) 12unit (0.12 mL) subcut TIDAC #0 mL 12/22/24 magnesium citrate 300 ml PO DAILY PRN Constipation #0 mL 12/22/24 pantoprazole 40 mg tablet,delayed release 40 mg PO DAILY #0 tabs 12/22/24 sennosides 8.6 mg-docusate sodium 50 mg tablet (Stimulant Laxative Plus) 1 tab PO BID #0 tabs 12/22/24 umeclidinium 62.5 mcg/actuation blister powder for inhalation (Incruse Ellipta) 1 inh inhalation DAILY #0 ea 12/22/24 Hospital Course Operations None Procedures None Summary of Care Provided Minutes Spent on Discharge: 35 Hospital Course: 84 year old male with below past medical history hospitalized for encephalopathy2/2 hypoglycemia, admitted to TCU with debility, here for rehabilitation, strengthening, prior to discharge home alone. Discharge 12/25/2024, [facility], intermediate, Medicaid pending. Encephalopathy resolved. Physical Exam Const alert General Appearance: cooperative HEENT normocephalic Eyes PERRL and EOMs intact bilaterally Neck supple, no JVD and no carotid bruits Resp normal respiratory effort, normal air movement and clear to auscultation bilaterally Cardio regular rate and regular rhythm GI normal to inspection, nondistended, normoactive bowel sounds, non-tender and non-distended Extremity normal capillary refill General Extremity: Negative for edema Skin no rashes or lesions noted General Skin Exam: no breakdown Psych affect normal Appearance: appropriate Weight / BMI Weight Weight: 105.007 kg Body Mass Index (BMI) 37.2 ABG / Lab / Microbiology Data 12/20/24 05:31 12/20/24 05:31 Laboratory: Laboratory Results - last 24 hr 12/21/24 21:48: POC Glucose 104 12/21/24 22:57: POC Glucose 180 H 12/22/24 05:58: POC Glucose 232 H 12/22/24 11:30: POC Glucose 194 H 12/22/24 16:12: POC Glucose 189 H D/C Instructions Discharge Activity: Return to Normal Activity, May Shower and Use Walker Weight Bearing Status: Weight bearing as tolerated Call your doctor if you observe: Fever of 101 or Higher, Inability to urinate, Inability to have a bowel movement, Shortness of breath, Dizziness, Fainting spells, Swelling in the ankles, Chest pain and Uncontrolled pain DC O2, CPAP, BIPAP Needs Home O2 Discharge instructions: Yes Type of respiratory needs?: Oxygen (2) Oxygen frequency: Continuous Continuous oxygen liters per minute: 2 DC home with Oxygen: Yes Home O2 MD Review: I have reviewed the oxygen testing, and the patient qualifies for home oxygen equipment and portability. The patient is mobile in the home and the community. Additional Instructions: Discharge 12/25/2024, [facility], intermediate, Medicaid pending. Meaningful Use Info Meaningful Use Meaningful Use Diagnoses (Choose all that apply): None applicable Discharge Plan Admission Admit Date/Time: 12/05/24 18:20 Primary Reason for Your Visit: Debility. Attending Provider: Kain Bhakta Chi Primary Care Provider: Kain Bhakta Chi Instructions Additional Instructions / Restrictions: Discharge 12/25/2024, [facility], intermediate, Medicaid pending. Discharge Orders/Prescriptions Prescriptions: New sennosides-docusate sodium [Stimulant Laxative Plus] 8.6-50 mg Tablet 1 tab PO BID Qty: 0 0RF pantoprazole 40 mg Tablet,Delayed Release (Dr/Ec) 40 mg PO DAILY Qty: 0 0RF magnesium citrate Solution 300 ml PO DAILY PRN (Reason: Constipation) Qty: 0 0RF insulin lispro [Humalog KwikPen Insulin] 100 unit/mL Insulin Pen 12 unit subcut TIDAC Qty: 0 0RF Incruse Ellipta 62.5 mcg/actuation Blister With Device 1 inh inhalation DAILY Qty: 0 0RF fluticasone propion-salmeterol 232-14 mcg/actuation Aerosol Powdr Breath Activated 1 inh inhalation Q12 Qty: 0 0RF insulin glargine-yfgn 100 unit/mL (3 mL) Insulin Pen 36 unit subcut QHS Qty: 0 0RF Continued ascorbate calcium (vitamin C) 500 mg tablet 500 mg PO DAILY polysaccharide iron complex [Ferrex 150] 150 mg iron capsule 150 mg PO DAILY ranolazine 500 mg tablet extended release 12 hr 500 mg PO BID Qty: 60 11RF gabapentin 300 mg capsule 300 mg PO BID levothyroxine 25 mcg Tablet 25 mcg PO DAILY furosemide 40 mg Tablet 40 mg PO BIDLX 30 Days Qty: 60 0RF atorvastatin 40 mg Tablet 40 mg PO QHS 30 Days Qty: 30 0RF carvedilol 6.25 mg Tablet 6.25 mg PO BID 30 Days Qty: 60 0RF amlodipine 5 mg Tablet 5 mg PO DAILY 30 Days Qty: 30 0RF tamsulosin 0.4 mg Capsule 0.4 mg PO DAILY@1730 30 Days Qty: 30 0RF nitroglycerin 0.4 mg Tablet, Sublingual 0.4 mg sublingual Q5M PRN (Reason: Cardiac/Chest Pain) Qty: 30 2RF aspirin 81 mg Tablet,Delayed Release (Dr/Ec) 81 mg PO BREAKFAST Qty: 30 2RF clopidogrel 75 mg tablet 75 mg PO DAILY trazodone 50 mg tablet 25 mg PO QHS Discontinued famotidine 40 MG tablet 40 mg PO DAILY glimepiride 4 mg Tablet 4 mg PO DAILY insulin degludec [Tresiba FlexTouch U-100] 100 unit/mL (3 mL) insulin pen 15 unit subcut QHS Qty: 15 0RF Referrals / Follow Up: Kain Bhakta Chi, MD [Primary Care Provider] - 12/29/24 11:40 am Disposition Disposition (needs filled in before D/C Order can be placed): NonSkilled NH/Intermed Care 12/22/242039 Cosigner Signature (if applicable): CC: Dr. Kain Bhakta MD~ Signed [facility]08[facility]07[facility] Progress note Author Nayely Tanner [facility] Note Date/Time December 06, 2024 12:2 3pm [facility] Medical Records Department [address] [place] [id number] Progress Note - Pharmacy 12/06/24 1023 MR#: [id number] Acct: [id number] Name: JUNIOR BOONE Rep #:[id number] : 1940 84 From: Nayely Tanner PCP: Dr. Kain Bhakta MD Status:ADM I N Location: [place] [address] Documented by User: Nayely Tanner 12/06/24 11:23 TCU RX Drug Regimen Review Subjective/Objective Subjective/Objective Subjective: TCU Admission. 84 YOM presented to the ER with confusion. Hospitalized for encephalopathy 2/2 hypoglycemia. Admitted to TCU with debility for strengthening and rehabilitation. Objective: Allergies No Known Allergies Allergy (Verified 12/02/24 10:16) Current Medications Generic Name Dose Route Start Last Admin Trade Name Fabian PRN Reason Stop Dose Admin Acetaminophen 1,000 mg 12/06/24 07:40 Acetaminophen 500 Mg Tablet PO Q6H PRN PRN Pain Score 1-10 Albuterol Sulfate 2.5 mg 12/06/24 07:47 Albuterol 2.5 Mg/3 Ml Vial.Neb. INHALATION Q2H PRN PRN DYSPNEA/WHEEZING/SOB Amlodipine Besylate 5 mg 12/06/24 10:00 12/06/24 09:20 Amlodipine 5 Mg Tablet PO 5 mg DAILY MARJORIE Administration Protocol Ascorbic Acid 500 mg 12/06/24 10:00 12/06/24 09:21 Ascorbic Acid 500 Mg Tablet PO 500 mg DAILY MARJORIE Administration Aspirin 81 mg 12/06/24 08:00 12/06/24 09:17 Aspirin E.C. 81 Mg Tablet PO 81 mg BREAKFAST MARJORIE Administration Atorvastatin Calcium 40 mg 12/05/24 22:00 12/05/24 22:29 Atorvastatin Calcium 40 Mg Tablet PO 40 mg QHS MARJORIE Administration Carvedilol 6.25 mg 12/06/24 08:00 12/06/24 09:17 Carvedilol 6.25 Mg Tablet PO 6.25 mg BIDCM MARJORIE Administration Protocol Clopidogrel Bisulfate 75 mg 12/06/24 10:00 12/06/24 09:21 Clopidogrel Bisulfate 75 Mg Tablet PO 75 mg DAILY MARJORIE Administration Furosemide 40 mg 12/06/24 06:00 12/06/24 05:36 Furosemide 40 Mg Tablet PO 40 mg BIDLX MARJORIE Administration Protocol Gabapentin 300 mg 12/05/24 22:00 12/06/24 09:26 Gabapentin 300 Mg Capsule PO 300 mg BID MARJORIE Administration Sodium Chloride 250 mls @ 15 mls/hr 12/05/24 22:31 IV .[id number] PRN Saline Flush Insulin Glargine 15 unit 12/05/24 22:00 12/05/24 22:28 Insulin Glargine-Yfgn 100 Unit/Ml Pen SC 15 unit QHS MARJORIE Administration Levothyroxine Sodium 25 mcg 12/06/24 06:00 12/06/24 05:36 Levothyroxine 25 Mcg Tablet PO 25 mcg DAILY@0600 MARJORIE Administration Magnesium Citrate 300 ml 12/06/24 07:56 Magnesium Citrate 300 Ml PO DAILY PRN Constipation Nitroglycerin 0.4 mg 12/05/24 19:28 Nitroglycerin (Inpatient Use) 0.4 Mg Tab.Subl SL Q5M PRN CARDIAC/CHEST PAIN Pantoprazole Sodium 40 mg 12/06/24 10:00 12/06/24 09:21 Pantoprazole Sodium 40 Mg Tablet PO 40 mg DAILY MARJORIE Administration Polysaccharide Iron Complex 150 mg 12/06/24 10:00 Iron Polysaccharide Complex 150 Mg Capsule PO DAILY [facility] Ranolazine 500 mg 12/05/24 22:00 12/06/24 09:21 Ranolazine 500 Mg Tablet PO 500 mg BID MARJORIE Administration Fluticasone/Salmeterol 1 puff 12/06/24 10:00 12/06/24 09:26 Fluticasone/Salmeterol 232-14 Inhaler INHALATION 1 puff Q12 MARJORIE Administration Senna/Docusate Sodium 1 tablet 12/06/24 10:00 12/06/24 09:21 Senna/Docusate Sodium 1 Tablet PO 1 tablet BID MARJORIE Administration Sodium Chloride 10 - 40 ml 12/05/24 22:31 12/05/24 22:20 0.9% Saline Lock 10 Ml Syringe IV 10 ml UD PRN Administration SALINE FLUSH Tamsulosin HCl 0.4 mg 12/06/24 17:30 Tamsulosin Hcl 0.4 Mg Capsule PO DAILY@1730 [facility] Trazodone HCl 25 mg 12/05/24 22:00 12/05/24 22:27 Trazodone 50 Mg Tablet PO 25 mg QHS MARJORIE Administration Tuberculin PPD 0.1 ml 12/13/24 10:00 Tuberculin,Purif.Prot.Deriv. 50 Tu/Ml Vial ID 12/13/24 10:01 X1 ONE Umeclidinium Divide 1 puff 12/06/24 10:00 12/06/24 09:18 Umeclidinium Divide Inhaler INHALATION 1 inh DAILY MARJORIE Administration Problem List Morbid obesity (Acute) CKD (chronic kidney disease), stage IV (Chronic) BPH (benign prostatic hyperplasia) (Acute) Coronary artery disease (Acute) Chronic heart failure with preserved ejection fraction (HFpEF) (Acute) Type 2 diabetes mellitus with hyperglycemia (Acute) Encephalopathy (Acute) Hypoglycemia (Acute) Debility (Acute) Diabetic polyneuropathy (Acute) Hypothyroidism (Acute) COPD (chronic obstructive pulmonary disease) (Chronic) Chronic hypoxemic respiratory failure (Chronic) HLD (hyperlipidemia) (Chronic) Vital Signs Temp Pulse Resp BP Pulse Ox O2 Del Method O2 Flow Rate 97.4 F L 80 18 121/60 H 98 Room Air 2 12/06/24 09:30 12/06/24 09:30 12/06/24 09:30 12/06/24 09:30 12/06/24 09:30 12/06/24 09:30 12/06/24 08:18 Oxygen Flow Rate (L/min) 2 Oxygen Delivery Method Room Air Weight: 102.7 kg Body Mass Index (BMI) 36.5 Sodium 139 mmol/L (133-145) 12/06/24 05:21 Potassium 4.1 mmol/L (3.3-5.1) 12/06/24 05:21 Chloride 101 mmol/L (98-108) 12/06/24 05:21 Carbon Dioxide 27.6 mmol/L (21.0-32.0) 12/06/24 05:21 Anion Gap 11 (5-15) 12/06/24 05:21 BUN 38 mg/dL (4-19) H 12/06/24 05:21 Creatinine 2.19 mg/dL (0.70-1.20) H 12/06/24 05:21 Est GFR (MDRD) Non-Af 29 (>60) L 12/06/24 05:21 BUN/Creatinine Ratio 17.5 RATIO (10-20) 12/06/24 05:21 Glucose 111 mg/dL (70-99) H 12/06/24 05:21 Assessment/Plan: 1. Pain: Tylenol 1000mg Q6 PO PRN for pain (1-10). Resident has not needed any PRN doses. Please continue to monitor pain and PRN usage. 2. Bowel: Docusate/senna 50mg/8.6mg 1T PO BID and magnesium citrate 300mL PO PRNconstipation. Please continue to monitor for constipation and PRN usage. Last documented bowel movement was 12/05/24. 3. Coronary Artery Disease s/p stent/HFpEF/Hypertension: aspirin 81mg PO daily at breakfast, clopidogrel 75mg PO daily, amlodipine 5mg PO daily, carvedilol 6.25mg PO BID, furosemide 40mg PO BIDLX, ranolazine 500mg PO BID, Nitroglycerin 0.4mg SL Q5M PRN chest pain. Resident has not needed any PRN nitroglycerin. Please continue to monitor for S/S of bleeding/stroke, hemoglobin (last 9.1g/dL), chest pain/tightness, edema, weight gain, renal function, blood pressure (rnrb677/62 and 126/61mmHg), potassium (last 4.1mmol/L) and heart rate (68-73). 4. Type II Diabetes Mellitus: insulin glargine 15units SC QHS. Please continue to monitor for S/S of hyper/hypoglycemia, hemoglobin A1c (last 6.9% 12/02/24) andblood sugar (last 114mg/dL). 5. Iron Deficiency Anemia: Vitamin C 500mg PO daily and Ferrex 150mg PO daily. Please continue to monitor hemoglobin (last 9.1g/dL), iron studies (03/17/24), constipation and dark stools. 6. Hypothyroidism: Levothyroxine 25mcg PO daily. Please continue to monitor TSH (last 12/03/24) and S/S of hypo/hyperthyroidism.? 7. GERD: pantoprazole 40mg PO daily. Please continue to monitor for S/S of GERD and diarrhea (BEERs). 8. Hyperlipidemia: atorvastatin 40mg PO QHS. Please continue to monitor lipid levels (last 03/16/24), LFTs (last 12/05/24 WNL), and for muscle pain. 9. BPH: tamsulosin 0.4mg PO daily. Please continue to monitor for incontinence, BP, and dizziness/lightheadedness.? 10. Neuropathic pain: gabapentin 300mg PO BID. Please continue to monitor for confusion, renal function, falls/fractures (BEERs medication). 11. COPD: fluticasone/salmeterol 232/14mcg 1 puff BID, Incruse ellipta 1puff daily, and albuterol 2/5mg nebulized solution Q2H PRN dyspnea/wheezing/SOB. No PRN doses have been given. Please continue to monitor for SOB, wheezing, dyspnea, HR, thrush, anxiety. Please rinse mouth with water and spit following fluticasone administration to prevent thrush. Assessment/Plan for indications treated with psychotropic medications: 1. Insomnia: trazodone 25mg PO QHS. Monitor for drowsiness, dizziness or confusion, dry mouth, constipation, symptoms of serotonin syndrome (including agitation, confusion, hyperreflexia, rigidity/myoclonus, tremor, tachycardia, tachypnea), suicidal thoughts or behaviors (Boxed Warning). Monitor HR (can cause bradycardia or tachycardia). HR range since admission = 68-73. Monitor fororthostatic hypotension, including postural dizziness, syncope or falls. Check orthostatic vital signs if suspicion of orthostasis. Monitor for efficacy including resident symptoms, behaviors and indications of distress. Monitor for tolerability including mental status, cognition, excessivesleepiness, withdrawal or decreased participation in activities and decline in physical functioning. Maximize use of nonpharmacologic/behavioral interventions to facilitate dose reduction or discontinuation as appropriate. Please evaluate the appropriateness of GDR unless contraindicated. If appropriate, GDR should be attempted in 2 separate quarters within the first year of use or admission to TCU. If GDR attempted, monitor resident symptoms/behaviors. Medical chart and medication regimen reviewed. The following medication irregularities or issues were identified: None Date Date of Note: 12/06/24 Documented by User: Dr. Kain Bhakta MD 12/06/24 12:23 TCU RX Drug Regimen Review Provider Comments Provider responsibility Provider Comments to Recommendations by Pharmacy Agree 12/06/24 1123 <Electronically signed by Nayely Tanner> Nayely eHbert Signature (if applicable): 12/06/24 1223 <Electronically signed by Kain Bhakta MD> CC: ~ Signed [facility] Work Phone: 1(347) 313-171807-22-2025 Progress note [facility] Medical Records Department [address] [place] [address] Progress Note - Pharmacy 12/06/24 1023 MR#: [id number] Acct: [id number] Name: JUNIOR BOONE Rep #:[id number] : 1940 84 From: Nayely Tanner PCP: Dr. Kain Bhakta MD Status:ADM I N Location: TCU [place] [address] Documented by User: Nayely Tanner 12/06/24 11:23 TCU RX Drug Regimen Review Subjective/Objective Subjective/Objective Subjective: TCU Admission. 84 YOM presented to the ER with confusion. Hospitalized for encephalopathy 2/2 hypoglycemia. Admitted to TCU with debility for strengthening and rehabilitation. Objective: Allergies No Known Allergies Allergy (Verified 12/02/24 10:16) Current Medications Generic Name Dose Route Start Last Admin Trade Name Freq PRN Reason Stop Dose Admin Acetaminophen 1,000 mg 12/06/24 07:40 Acetaminophen 500 Mg Tablet PO Q6H PRN PRN Pain Score 1-10 Albuterol Sulfate 2.5 mg 12/06/24 07:47 Albuterol 2.5 Mg/3 Ml Vial.Neb. INHALATION Q2H PRN PRN DYSPNEA/WHEEZING/SOB Amlodipine Besylate 5 mg 12/06/24 10:00 12/06/24 09:20 Amlodipine 5 Mg Tablet PO 5 mg DAILY MARJORIE Administration Protocol Ascorbic Acid 500 mg 12/06/24 10:00 12/06/24 09:21 Ascorbic Acid 500 Mg Tablet PO 500 mg DAILY MARJORIE Administration Aspirin 81 mg 12/06/24 08:00 12/06/24 09:17 Aspirin E.C. 81 Mg Tablet PO 81 mg BREAKFAST MARJORIE Administration Atorvastatin Calcium 40 mg 12/05/24 22:00 12/05/24 22:29 Atorvastatin Calcium 40 Mg Tablet PO 40 mg QHS MARJORIE Administration Carvedilol 6.25 mg 12/06/24 08:00 12/06/24 09:17 Carvedilol 6.25 Mg Tablet PO 6.25 mg BIDCM MARJORIE Administration Protocol Clopidogrel Bisulfate 75 mg 12/06/24 10:00 12/06/24 09:21 Clopidogrel Bisulfate 75 Mg Tablet PO 75 mg DAILY MARJORIE Administration Furosemide 40 mg 12/06/24 06:00 12/06/24 05:36 Furosemide 40 Mg Tablet PO 40 mg BIDLX MARJORIE Administration Protocol Gabapentin 300 mg 12/05/24 22:00 12/06/24 09:26 Gabapentin 300 Mg Capsule PO 300 mg BID MARJORIE Administration Sodium Chloride 250 mls @ 15 mls/hr 12/05/24 22:31 IV .[id number] PRN Saline Flush Insulin Glargine 15 unit 12/05/24 22:00 12/05/24 22:28 Insulin Glargine-Yfgn 100 Unit/Ml Pen SC 15 unit QHS [facility] Administration Levothyroxine Sodium 25 mcg 12/06/24 06:00 12/06/24 05:36 Levothyroxine 25 Mcg Tablet PO 25 mcg DAILY@0600 [facility] Administration Magnesium Citrate 300 ml 12/06/24 07:56 Magnesium Citrate 300 Ml PO DAILY PRN Constipation Nitroglycerin 0.4 mg 12/05/24 19:28 Nitroglycerin (Inpatient Use) 0.4 Mg Tab.Subl SL Q5M PRN CARDIAC/CHEST PAIN Pantoprazole Sodium 40 mg 12/06/24 10:00 12/06/24 09:21 Pantoprazole Sodium 40 Mg Tablet PO 40 mg DAILY [facility] Administration Polysaccharide Iron Complex 150 mg 12/06/24 10:00 Iron Polysaccharide Complex 150 Mg Capsule PO DAILY [facility] Ranolazine 500 mg 12/05/24 22:00 12/06/24 09:21 Ranolazine 500 Mg Tablet PO 500 mg BID [facility] Administration Fluticasone/Salmeterol 1 puff 12/06/24 10:00 12/06/24 09:26 Fluticasone/Salmeterol 232-14 Inhaler INHALATION 1 puff Q12 [facility] Administration Senna/Docusate Sodium 1 tablet 12/06/24 10:00 12/06/24 09:21 Senna/Docusate Sodium 1 Tablet PO 1 tablet BID [facility] Administration Sodium Chloride 10 - 40 ml 12/05/24 22:31 12/05/24 22:20 0.9% Saline Lock 10 Ml Syringe IV 10 ml UD PRN Administration SALINE FLUSH Tamsulosin HCl 0.4 mg 12/06/24 17:30 Tamsulosin Hcl 0.4 Mg Capsule PO DAILY@1730 [facility] Trazodone HCl 25 mg 12/05/24 22:00 12/05/24 22:27 Trazodone 50 Mg Tablet PO 25 mg QHS [facility] Administration Tuberculin PPD 0.1 ml 12/13/24 10:00 Tuberculin,Purif.Prot.Deriv. 50 Tu/Ml Vial ID 12/13/24 10:01 X1 ONE Umeclidinium Divide 1 puff 12/06/24 10:00 12/06/24 09:18 Umeclidinium Divide Inhaler INHALATION 1 inh DAILY MARJORIE Administration Problem List Morbid obesity (Acute) CKD (chronic kidney disease), stage IV (Chronic) BPH (benign prostatic hyperplasia) (Acute) Coronary artery disease (Acute) Chronic heart failure with preserved ejection fraction (HFpEF) (Acute) Type 2 diabetes mellitus with hyperglycemia (Acute) Encephalopathy (Acute) Hypoglycemia (Acute) Debility (Acute) Diabetic polyneuropathy (Acute) Hypothyroidism (Acute) COPD (chronic obstructive pulmonary disease) (Chronic) Chronic hypoxemic respiratory failure (Chronic) HLD (hyperlipidemia) (Chronic) Vital Signs Temp Pulse Resp BP Pulse Ox O2 Del Method O2 Flow Rate 97.4 F L 80 18 121/60 H 98 Room Air 2 12/06/24 09:30 12/06/24 09:30 12/06/24 09:30 12/06/24 09:30 12/06/24 09:30 12/06/24 09:30 12/06/24 08:18 Oxygen Flow Rate (L/min) 2 Oxygen Delivery Method Room Air Weight: 102.7 kg Body Mass Index (BMI) 36.5 Sodium 139 mmol/L (133-145) 12/06/24 05:21 Potassium 4.1 mmol/L (3.3-5.1) 12/06/24 05:21 Chloride 101 mmol/L (98-108) 12/06/24 05:21 Carbon Dioxide 27.6 mmol/L (21.0-32.0) 12/06/24 05:21 Anion Gap 11 (5-15) 12/06/24 05:21 BUN 38 mg/dL (4-19) H 12/06/24 05:21 Creatinine 2.19 mg/dL (0.70-1.20) H 12/06/24 05:21 Est GFR (MDRD) Non-Af 29 (>60) L 12/06/24 05:21 BUN/Creatinine Ratio 17.5 RATIO (10-20) 12/06/24 05:21 Glucose 111 mg/dL (70-99) H 12/06/24 05:21 Assessment/Plan: 1. Pain: Tylenol 1000mg Q6 PO PRN for pain (1-10). Resident has not needed any PRN doses. Please continue to monitor pain and PRN usage. 2. Bowel: Docusate/senna 50mg/8.6mg 1T PO BID and magnesium citrate 300mL PO PRNconstipation. Please continue to monitor for constipation and PRN usage. Last documented bowel movement was 12/05/24. 3. Coronary Artery Disease s/p stent/HFpEF/Hypertension: aspirin 81mg PO daily at breakfast, clopidogrel 75mg PO daily, amlodipine 5mg PO daily, carvedilol 6.25mg PO BID, furosemide 40mg PO BIDLX, ranolazine 500mg PO BID, Nitroglycerin 0.4mg SL Q5M PRN chest pain. Resident has not needed any PRN nitroglycerin. Please continue to monitor for S/S of bleeding/stroke, hemoglobin (last 9.1g/dL), chestpain/tightness, edema, weight gain, renal function, blood pressure (hmkn543/62 and 126/61mmHg), potassium (last 4.1mmol/L) and heart rate (68-73). 4. Type II Diabetes Mellitus: insulin glargine 15units SC QHS. Please continue to monitor for S/S of hyper/hypoglycemia, hemoglobin A1c (last 6.9% 12/02/24) andblood sugar (last 114mg/dL). 5. Iron Deficiency Anemia: Vitamin C 500mg PO daily and Ferrex 150mg PO daily. Please continue to monitor hemoglobin (last 9.1g/dL), iron studies (03/17/24), constipation and dark stools. 6. Hypothyroidism: Levothyroxine 25mcg PO daily. Please continue to monitor TSH (last 12/03/24) and S/S of hypo/hyperthyroidism.? 7. GERD: pantoprazole 40mg PO daily. Please continue to monitor for S/S of GERD and diarrhea (BEERs). 8. Hyperlipidemia: atorvastatin 40mg PO QHS. Please continue to monitor lipid levels (last 03/16/24), LFTs (last 12/05/24 WNL), and for muscle pain. 9. BPH: tamsulosin 0.4mg PO daily. Please continue to monitor for incontinence, BP, and dizziness/lightheadedness.? 10. Neuropathic pain: gabapentin 300mg PO BID. Please continue to monitor for confusion, renal function, falls/fractures (BEERs medication). 11. COPD: fluticasone/salmeterol 232/14mcg 1 puff BID, Incruse ellipta 1puff daily, and albuterol 2/5mg nebulized solution Q2H PRN dyspnea/wheezing/SOB. No PRN doses have been given. Please continue to monitor for SOB, wheezing, dyspnea, HR, thrush, anxiety. Please rinse mouth with water and spit following fluticasone administration to prevent thrush. Assessment/Plan for indications treated with psychotropic medications: 1. Insomnia: trazodone 25mg PO QHS. Monitor for drowsiness, dizziness or confusion, dry mouth, constipation, symptoms of serotonin syndrome (including agitation, confusion, hyperreflexia, rigidity/myoclonus, tremor, tachycardia, tachypnea), suicidal thoughts or behaviors (Boxed Warning). Monitor HR(can cause bradycardia or tachycardia). HR range since admission = 68-73. Monitor fororthostatic hypotension, including postural dizziness, syncope or falls. Check orthostatic vital signs if suspicion of orthostasis. Monitor for efficacy including resident symptoms, behaviors and indications of distress. Monitor for tolerability including mental status, cognition, excessivesleepiness, withdrawal or decreased participation in activities and decline in physical functioning. Maximize use of nonpharmacologic/behavioral interventions to facilitate dose reduction or discontinuation as appropriate. Please evaluate the appropriateness of GDR unless contraindicated. If appropriate, GDR should be attempted in 2 separate quarters within the first year of use or admission to TCU. If GDR attempted, monitor resident symptoms/behaviors. Medical chart and medication regimen reviewed. The following medication irregularities or issues were identified: None Date Date of Note: 12/06/24 Documented by User: Dr. Kain Bhakta MD 12/06/24 12:23 TCU RX Drug Regimen Review Provider Comments Provider responsibility Provider Comments to Recommendations by Pharmacy Agree 12/06/24 [id number] Nayely Hebert Signature (if applicable): 12/06/24 1223 CC: ~ Signed [facility]07-22-2025 History and physical note Author Kain Bhakta [facility] Note Date/Time December 06, 2024 7:55 am [facility] Medical Records Department [address] [place] [address] History & Physical Exam 12/06/24 0736 MR#: [id number] Acct: [id number] Name: JUNIOR BOONE Rep #:[id number] : 1940 84 From: Kain Bhakta MD PCP: Dr. Kain Bhakta MD Status:ADM I N Location: [place] [address] HPI - General General Date of Admission: 12/05/24 Date of Service: 12/06/24 Chief Complaint: Here for rehabilitation. HPI Narrative JUNIOR MACIAS, is a 84 Male who presents with followin12/02/2024 [facility] ED confusion. Confused, did not recognize neighbors. EMS called, glucose 74, glucose given, repeat sugar 89. Confusion improved, confusion resolved. Too weak to walk. 12/02/2024 Admit [facility]. Encephalopathy 2/2 hypoglycemia. IV dextrose, Hold oral hypoglycemics, Hold insulin for hypoglycemia. PT/OT/CM. Bowel regimen for constipation. 12/03/2024 A1c 6.9, A1c goal < 8.5, diabetic diet, Lispro low dose sliding scale insulin. PT/OT/CM. 12/04/2024 No acute events overnight. Sugars controlled, off all diabetic medications, low dose Lispro SSI. PT/OT/CM for SNF. 12/05/2024 Admit to TCU with debility, here for rehabilitation, strengthening, prior to discharge home alone. [facility] Medical History (Updated 12/06/24 @ 07:[address] 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 Vitamin D deficiency GERD (gastroesophageal reflux disease) Heart failure with preserved ejection fraction Diabetic polyneuropathy Hypothyroidism Atherosclerotic cardiovascular disease COPD (chronic obstructive pulmonary disease) Chronic hypoxemic respiratory failure Pneumonia due to COVID-19 virus Hypertension PVCs (premature ventricular contractions) Anemia Obesity (BMI 30.0-34.9) Diabetes mellitus, type II HLD (hyperlipidemia) Home Medications ?Medication ?Instructions ?Recorded ?Last Taken ?Type famotidine 40 mg tablet 40 mg PO DAILY GERD 07/13/18 12/05/24 09:00 History glimepiride 4 mg tablet 4 mg PO DAILY DIABETES 06/23 Unknown History levothyroxine 25 mcg tablet 25 mcg PO DAILY THYROID 12/05/24 06:30 History ascorbate calcium (vitamin C) 500 500 mg PO DAILY SUPP LEMENT 03/09/24 03/23/24 History mg tablet gabapentin 300 mg capsule 300 mg PO BID NEUROPATHY 12/05/24 09:00 History polysaccharide iron complex 150 mg 150 mg PO DAILY SUP PLEMENT 03/09/24 12/05/24 09:00 History iron capsule (Ferrex) aspirin 81 mg tablet,delayed 81 mg PO BREAKFAST heart #30 tabs 03/23/24 12/05/24 09:00 Rx release nitroglycerin 0.4 mg sublingual 0.4 mg sublingual Q5M PRN 03/23/24 03/16/24 Rx tablet Cardiac/Chest Pain #30 tabs amlodipine 5 mg tablet 5 mg PO DAILY BP 30 days #30 tabs 04/07/24 12/05/24 09:00 Rx atorvastatin 40 mg tablet 40 mg PO QHS Cholesterol 30 days 04/07/24 12/04/24 Rx #30 tabs carvedilol 6.25 mg tablet 6.25 mg PO BID BP 30 days #6 0 tabs 04/07/24 12/05/24 16:30 Rx furosemide 40 mg tablet 40 mg PO BIDLX Edema 30 days #60 04/07/24 12/05/24 16:30 Rx tabs tamsulosin 0.4 mg capsule 0.4 mg PO DAILY@1730 Urinary 04/07/24 12/05/24 16:30 Rx Retention 30 days #30 caps ranolazine 500 mg tablet,extended 500 mg PO BID Heart #60 tabs 09/13/24 12/05/24 09:00 Rx release,12 hr clopidogrel 75 mg tablet 75 mg PO DAILY blood thinner 11/21/24 12/05/24 09:00 History trazodone 50 mg tablet 25 mg PO QHS sleep 11/21/24 12/04/24 History insulin degludec 100 unit/mL (3 15 unit (0.15 mL) subc ut QHS 12/05/24 Unknown Rx mL) subcutaneous pen (Tresiba Diabetes #15 mL FlexTouch U-100 insulin) Allergy/AdvReac Type Severity Reaction Status Date / Time No Known Allergies Allergy Verified 12/02/24 10:16 Family History Brother Diabetes Mother Diabetes Sister Diabetes Father Heart disease Surgical History History of coronary artery stent placement Stented coronary artery (03/16/24) History of appendectomy Social History household members: none Smoking Status: Former smoker alcohol intake: never substance use type: does not use ROS Constitutional Constitutional: Reports weakness; Denies chills, fever(s) or weight gain ENT HEENT: Denies headache(s), nasal congestion or nasal discharge Cardiovascular Cardiovascular: Denies chest pain or palpitations Respiratory/Chest Respiratory/Chest: Denies cough, excessive phlegm production or shortness of breath with exertion Gastrointestinal Gastrointestinal: Denies abdominal pain, nausea or vomiting Genitourinary Genitourinary: Denies dysuria Musculoskeletal Musculoskeletal: Denies joint pain or joint swelling Integumentary Integumentary: Denies rash or wounds Neurologic Neurologic: Reports dizziness and other Details: Off balance. ; Denies focal weakness, numbness or tingling Psychiatric Psychiatric: Denies anxiety, auditory hallucinations, depression, homicidal ideation or suicidal ideation Vital Signs Vital Signs Vital Signs: 12/05/24 18:38 12/05/24 18:38 12/06/24 05:35 Temperature 98.4 F Temperature Source Temporal Pulse Rate 73 73 68 Pulse Rhythm Regular Pulse Strength Normal (2+) Respiratory Rate 18 18 Respiratory Effort Normal Respiratory Depth Normal Respiratory Pattern Normal Blood Pressure 120/62 126/61 H Blood Pressure Mean 81 82 Blood Pressure Source Monitor Monitor Blood Pressure Position Semi-Fowlers Blood Pressure Location Left Arm Pulse Ox 98 98 Oxygen Delivery Method Nasal Cannula Nasal Cannula Oxygen Flow Rate (L/min) 2 2 Weight Weight: 102.7 kg Body Mass Index (BMI) 36.5 Physical Exam Const alert General Appearance: cooperative HEENT normocephalic Eyes PERRL and EOMs intact bilaterally Neck supple, no JVD and no carotid bruits Resp normal respiratory effort and normal air movement Auscultation: wheezes throughout Cardio regular rate and regular rhythm GI normal to inspection, nondistended, normoactive bowel sounds, non-tender and non-distended Extremity normal capillary refill General Extremity: Negative for edema Skin no rashes or lesions noted General Skin Exam: no breakdown Psych affect normal Appearance: appropriate Results Lab / Micro Data 12/06/24 05:21 12/06/24 05:21 Labs: Laboratory Results - last 24 hr 12/05/24 20:57: POC Glucose 150 H 12/06/24 05:21: WBC 6.3, RBC 2.91 L, Hgb 9.1 L, Hct 27.7 L, MCV 95.2 H, MCH 31.3, MCHC 32.9, RDW Std Deviation 47.6 H, RDW Coeff of Elmer 13.6, Plt Count 173,MPV 10.3, Immature Gran % (Auto) 0.500, Neut % (Auto) 59.2, Lymph % (Auto) 25.1,Bonner % (Auto) 9.9, Eos % (Auto) 4.8, Baso % (Auto) 0.5, Absolute Neuts (auto) 3.7, Absolute Lymphs (auto) 1.57, Nucleated RBC % 0, Sodium 139, Potassium 4.1, Chloride 101, Carbon Dioxide 27.6, Anion Gap 11, BUN 38 H, Creatinine 2.19 H, Estim Creat Clear Calc 28.18 L, Est GFR (MDRD) Non-Af 29 L, BUN/Creatinine Ratio 17.5, Glucose 111 H, Calcium 8.7 12/06/24 05:56: POC Glucose 114 H Assessment & Plan Assessment/Plan (1) Debility: (2) Encephalopathy: (3) Hypoglycemia: (4) Type 2 diabetes mellitus with hyperglycemia: (5) Chronic heart failure with preserved ejection fraction (HFpEF): (6) HLD (hyperlipidemia): QUALIFIERS: Hyperlipidemia type: pure hypercholesterolemia Qualified Code(s): E78.00 - Pure hypercholesterolemia, unspecified; E78.0 - Pure hypercholesterolemia (7) Hypothyroidism: (8) Diabetic polyneuropathy: (9) Coronary artery disease: (10) COPD (chronic obstructive pulmonary disease): QUALIFIERS: COPD type: emphysema Emphysema type: centrilobular Qualified Code(s): J43.2 - Centrilobular emphysema (11) Chronic hypoxemic respiratory failure: (12) BPH (benign prostatic hyperplasia): (13) CKD (chronic kidney disease), stage IV: (14) Morbid obesity: PLAN: Plan 84 year old male with below past medical history hospitalized for encephalopathy2/2 hypoglycemia, admitted to TCU with debility, here for rehabilitation, strengthening, prior to discharge home alone. * Debility - PT/OT. * Pain - Tylenol 1000mg q6 prn pain (1-10). * Bowel - senna/colace 1 tablet bid, Magnesium citrate 300mL daily prn * Adult immunization - Administer pneumonia vaccine, covid vaccine, flu vaccine as appropriate. * DVT prophylaxis - Hold, on DAPT, and anemic. * COPD - Fluticasone/Salmeterol 232-14 1 puff bid, Incruse 1 puff daily, Albuterol 2.5mg neb q2h prn, oxygen chronic. * Hypertension - Coreg 6.25mg bidcm, Amlodipine 5mg daily. * Iron deficiency anemia - Ferrex 150mg daily, Vitamin C 500mg daily. * Coronary artery disease s/p stent - Coreg 6.25mg bidcm, Ranexa 500mg bid, Plavix 75mg daily, Aspirin 81mg daily, NTG 0.4mg sl q5m prn chest pain. * Hyperlipidemia - Atorvastatin 40mg qhs. * Chronic HFpEF - Coreg 6.25mg bidcm, Furosemide 40mg bidlx. * Diabetic polyneuropathy - Gabpentin 300mg bid. * Diabetes Mellitus II - goal A1c < 8.5, A1c 6.9, Glargine 15 units qhs. * Hypothyroidism - Levothyroxine 25mcg daily. * GERD - Pantoprazole 40mg daily. * BPH - Tamsulosin 0.4mg daily. The following psychotropic medication was present on admission: Trazodone 25mg qhs. Psychotropic medication therapy is indicated for a diagnosis of: Insomnia. Based on my clinical evaluation, continuation of the medication is necessary at this time. Gradual dose reduction plan (select one): ____ GDR will be attempted. Will monitor patient symptoms and behaviors in response to GDR. __x__ GRD contraindicated. 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 12/06/24 7729 <Electronically signed by Kain Bhakta MD> Cosigner Signature (if applicable): CC: Dr. Kain Bhakta MD~ Signed [facility] Work Phone: [phone]) 879-392607-22-2025 History and physical note [facility] Medical Records Department [address] [place] [address] History & Physical Exam 12/06/24 0736 MR#: [id number] Acct: [id number] Name: JUNIOR BOONE Rep #:[id number] : 1940 84 From: Kain Bhakta MD PCP: Dr. Kain Bhakta MD Status:ADM I N Location: [place] [address] HPI - General General Date of Admission: 12/05/24 Date of Service: 12/06/24 Chief Complaint: Here for rehabilitation. HPI Narrative JUNIOR MACIAS, is a 84 Male who presents with followin12/02/2024 [facility] ED confusion. Confused, did not recognize neighbors. EMS called, glucose 74, glucose given, repeat sugar 89. Confusion improved, confusion resolved. Too weak to walk. 12/02/2024 Admit [facility]. Encephalopathy 2/2 hypoglycemia. IV dextrose, Hold oral hypoglycemics, Hold insulin for hypoglycemia. PT/OT/CM. Bowel regimen for constipation. 12/03/2024 A1c 6.9, A1c goal < 8.5, diabetic diet, Lispro low dose sliding scale insulin. PT/OT/CM. 12/04/2024 No acute events overnight. Sugars controlled, off all diabetic medications, low dose Lispro SSI. PT/OT/CM for SNF. 12/05/2024 Admit to TCU with debility, here for rehabilitation, strengthening, prior to discharge home alone. [facility] Medical History (Updated 12/06/24 @ 07:[address] 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 Vitamin D deficiency GERD (gastroesophageal reflux disease) Heart failure with preserved ejection fraction Diabetic polyneuropathy Hypothyroidism Atherosclerotic cardiovascular disease COPD (chronic obstructive pulmonary disease) Chronic hypoxemic respiratory failure Pneumonia due to COVID-19 virus Hypertension PVCs (premature ventricular contractions) Anemia Obesity (BMI 30.0-34.9) Diabetes mellitus, type II HLD (hyperlipidemia) Home Medications ?Medication ?Instructions ?Recorded ?Last Taken ?Type famotidine 40 mg tablet 40 mg PO DAILY GERD 07/13/18 12/05/24 09:00 History glimepiride 4 mg tablet 4 mg PO DAILY DIABETES 06/23 Unknown History levothyroxine 25 mcg tablet 25 mcg PO DAILY THYROID 12/05/24 06:30 History ascorbate calcium (vitamin C) 500 500 mg PO DAILY SUPP LEMENT 03/09/24 03/23/24 History mg tablet gabapentin 300 mg capsule 300 mg PO BID NEUROPATHY 12/05/24 09:00 History polysaccharide iron complex 150 mg 150 mg PO DAILY SUP PLEMENT 03/09/24 12/05/24 09:00 History iron capsule (Ferrex) aspirin 81 mg tablet,delayed 81 mg PO BREAKFAST heart #30 tabs 03/23/24 12/05/24 09:00 Rx release nitroglycerin 0.4 mg sublingual 0.4 mg sublingual Q5M PRN 03/23/24 03/16/24 Rx tablet Cardiac/Chest Pain #30 tabs amlodipine 5 mg tablet 5 mg PO DAILY BP 30 days #30 tabs 04/07/24 12/05/24 09:00 Rx atorvastatin 40 mg tablet 40 mg PO QHS Cholesterol 30 days 04/07/24 12/04/24 Rx #30 tabs carvedilol 6.25 mg tablet 6.25 mg PO BID BP 30 days #6 0 tabs 04/07/24 12/05/24 16:30 Rx furosemide 40 mg tablet 40 mg PO BIDLX Edema 30 days #60 04/07/24 12/05/24 16:30 Rx tabs tamsulosin 0.4 mg capsule 0.4 mg PO DAILY@1730 Urinary 04/07/24 12/05/24 16:30 Rx Retention 30 days #30 caps ranolazine 500 mg tablet,extended 500 mg PO BID Heart #60 tabs 09/13/24 12/05/24 09:00 Rx release,12 hr clopidogrel 75 mg tablet 75 mg PO DAILY blood thinner 11/21/24 12/05/24 09:00 History trazodone 50 mg tablet 25 mg PO QHS sleep 11/21/24 12/04/24 History insulin degludec 100 unit/mL (3 15 unit (0.15 mL) subc ut QHS 12/05/24 Unknown Rx mL) subcutaneous pen (Tresiba Diabetes #15 mL FlexTouch U-100 insulin) Allergy/AdvReac Type Severity Reaction Status Date / Time No Known Allergies Allergy Verified 12/02/24 10:16 Family History Brother Diabetes Mother Diabetes Sister Diabetes Father Heart disease Surgical History History of coronary artery stent placement Stented coronary artery (03/16/24) History of appendectomy Social History household members: none Smoking Status: Former smoker alcohol intake: never substance use type: does not use ROS Constitutional Constitutional: Reports weakness; Denies chills, fever(s) or weight gain ENT HEENT: Denies headache(s), nasal congestion or nasal discharge Cardiovascular Cardiovascular: Denies chest pain or palpitations Respiratory/Chest Respiratory/Chest: Denies cough, excessive phlegm production or shortness of breath with exertion Gastrointestinal Gastrointestinal: Denies abdominal pain, nausea or vomiting Genitourinary Genitourinary: Denies dysuria Musculoskeletal Musculoskeletal: Denies joint pain or joint swelling Integumentary Integumentary: Denies rash or wounds Neurologic Neurologic: Reports dizziness and other Details: Off balance. ; Denies focal weakness, numbness or tingling Psychiatric Psychiatric: Denies anxiety, auditory hallucinations, depression, homicidal ideation or suicidal ideation Vital Signs Vital Signs Vital Signs: 12/05/24 18:38 12/05/24 18:38 12/06/24 05:35 Temperature 98.4 F Temperature Source Temporal Pulse Rate 73 73 68 Pulse Rhythm Regular Pulse Strength Normal (2+) Respiratory Rate 18 18 Respiratory Effort Normal Respiratory Depth Normal Respiratory Pattern Normal Blood Pressure 120/62 126/61 H Blood Pressure Mean 81 82 Blood Pressure Source Monitor Monitor Blood Pressure Position Semi-Fowlers Blood Pressure Location Left Arm Pulse Ox 98 98 Oxygen Delivery Method Nasal Cannula Nasal Cannula Oxygen Flow Rate (L/min) 2 2 Weight Weight: 102.7 kg Body Mass Index (BMI) 36.5 Physical Exam Const alert General Appearance: cooperative HEENT normocephalic Eyes PERRL and EOMs intact bilaterally Neck supple, no JVD and no carotid bruits Resp normal respiratory effort and normal air movement Auscultation: wheezes throughout Cardio regular rate and regular rhythm GI normal to inspection, nondistended, normoactive bowel sounds, non-tender and non-distended Extremity normal capillary refill General Extremity: Negative for edema Skin no rashes or lesions noted General Skin Exam: no breakdown Psych affect normal Appearance: appropriate Results Lab / Micro Data 12/06/24 05:21 12/06/24 05:21 Labs: Laboratory Results - last 24 hr 12/05/24 20:57: POC Glucose 150 H 12/06/24 05:21: WBC 6.3, RBC 2.91 L, Hgb 9.1 L, Hct 27.7 L, MCV 95.2 H, MCH 31.3, MCHC 32.9, RDW Std Deviation 47.6 H, RDW Coeff of Elmer 13.6, Plt Count 173,MPV 10.3, Immature Gran % (Auto) 0.500, Neut % (Auto) 59.2, Lymph % (Auto) 25.1,Bonner % (Auto) 9.9, Eos % (Auto) 4.8, Baso % (Auto) 0.5, Absolute Neuts (auto) 3.7, Absolute Lymphs (auto) 1.57, Nucleated RBC % 0, Sodium 139, Potassium 4.1, Chloride 101, Carbon Dioxide 27.6, Anion Gap 11, BUN 38 H, Creatinine 2.19 H, Estim Creat Clear Calc 28.18 L, Est GFR (MDRD) Non-Af 29 L, BUN/Creatinine Ratio 17.5, Glucose 111 H, Calcium 8.7 12/06/24 05:56: POC Glucose 114 H Assessment & Plan Assessment/Plan (1) Debility: (2) Encephalopathy: (3) Hypoglycemia: (4) Type 2 diabetes mellitus with hyperglycemia: (5) Chronic heart failure with preserved ejection fraction (HFpEF): (6) HLD (hyperlipidemia): QUALIFIERS: Hyperlipidemia type: pure hypercholesterolemia Qualified Code(s): E78.00 - Pure hypercholesterolemia, unspecified; E78.0 - Pure hypercholesterolemia (7) Hypothyroidism: (8) Diabetic polyneuropathy: (9) Coronary artery disease: (10) COPD (chronic obstructive pulmonary disease): QUALIFIERS: COPD type: emphysema Emphysema type: centrilobular Qualified Code(s): J43.2 - Centrilobular emphysema (11) Chronic hypoxemic respiratory failure: (12) BPH (benign prostatic hyperplasia): (13) CKD (chronic kidney disease), stage IV: (14) Morbid obesity: PLAN: Plan 84 year old male with below past medical history hospitalized for encephalopathy2/2 hypoglycemia, admitted to TCU with debility, here for rehabilitation, strengthening, prior to discharge home alone. * Debility - PT/OT. * Pain - Tylenol 1000mg q6 prn pain (1-10). * Bowel - senna/colace 1 tablet bid, Magnesium citrate 300mL daily prn * Adult immunization - Administer pneumonia vaccine, covid vaccine, flu vaccine as appropriate. * DVT prophylaxis - Hold, on DAPT, and anemic. * COPD - Fluticasone/Salmeterol 232-14 1 puff bid, Incruse 1 puff daily, Albuterol 2.5mg neb q2h prn, oxygen chronic. * Hypertension - Coreg 6.25mg bidcm, Amlodipine 5mg daily. * Iron deficiency anemia - Ferrex 150mg daily, Vitamin C 500mg daily. * Coronary artery disease s/p stent - Coreg 6.25mg bidcm, Ranexa 500mg bid, Plavix 75mg daily, Aspirin 81mg daily, NTG 0.4mg sl q5m prn chest pain. * Hyperlipidemia - Atorvastatin 40mg qhs. * Chronic HFpEF - Coreg 6.25mg bidcm, Furosemide 40mg bidlx. * Diabetic polyneuropathy - Gabpentin 300mg bid. * Diabetes Mellitus II - goal A1c < 8.5, A1c 6.9, Glargine 15 units qhs. * Hypothyroidism - Levothyroxine 25mcg daily. * GERD - Pantoprazole 40mg daily. * BPH - Tamsulosin 0.4mg daily. The following psychotropic medication was present on admission: Trazodone 25mg qhs. Psychotropic medication therapy is indicated for a diagnosis of: Insomnia. Based on my clinical evaluation, continuation of the medication is necessary at this time. Gradual dose reduction plan (select one): ____ GDR will be attempted. Will monitor patient symptoms and behaviors in response to GDR. __x__ GRD contraindicated. 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 12/06/24 0755 Cosigner Signature (if applicable): CC: Dr. Kain Bhakta MD~ Signed [facility]07-22-2025 [facility]07-21-2025 [facility]07-18-2025 History and physical note [facility] Medical Records Department [address] [place] [address] H&P Exam - Hospitalist 12/02/24 1317 MR#: [id number] Acct: [id number] Name: JUNIOR BOONE Rep #:[id number] : 1940 84 From: Afsaneh Kapoor MD PCP: Dr. Kain Bhakta MD Status:ADM I N Location: [place] [address] HPI - General General Date of Admission: 12/02/24 Date of Service: 12/02/24 Chief Complaint: Confusion, transient, low BS. HPI Narrative The patient is an 84 y/o M w/ PMHx: CAD s/p PCI, Former tobacco use, BPH with obstructive pathology, CKD stage IV, Chronic macrocytic anemia/iron deficiency anemia, GERD, HFpEF, HTN, HLD, Hypothyroidism, COPD with Chronic Hypoxic Respiratory Failure (2-3L NC), Diabetes mellitus type II with chronicneuropathy, Obesity who presents to [facility] ED on 12/02/2024 with history of an episode of confusion reportedly not recognizing his neighborsand unable to perform normal routine activities noted to be home alone and unclear exact onset time prompting EMS call with noted blood sugar 74 with improvement to 89 with mentation and confusion improving with patient reporting were calling being mildly confused but no other complaints aside from mild dizziness in the morning but this is completely resolved in addition to mild constipation over the last 2 to 3 days with no abdominal pain associated with recent evaluation in the ED 11/10/2024 secondary mechanical fall with unremarkable evaluation as time but given episode prompted ED evaluation. Workupin the ED included T98, heart rate 73, BP 136/55, respiratory rate 18, under percent on 3 L nasal cannula with most recent repeat evaluation T98, heart rate 70, BP 160/87, respiratory rate 18, 97% on 3 L nasal cannula, CBC with WC 9.6, Hgb 9.8, MCV 94.2, platelet 173 without differential, BMP with BUN/creatinine 33/2.18, GFR 29, urinalysis unremarkable, CT of the brain with generalized brainatrophy with small vessel ischemic/deg enerative changes with no acute intracranial findings, acute abdominal series with a moderate to large amount ofstool and gas present throughout the mildly distended colon otherwise no acute findings, EKG with sinus rhythm with first- degree AV block with no acute evidence of ischemia. In the ED patiet attempted ambulation with notable debility, unsafe attempts. Family requesting consideration of assisted living. Per family patient does not check his BS at home. In the ED given persistent hypoglycemia, patient started on judicious IV dextrose supplementation. 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 Vitamin D deficiency GERD (gastroesophageal reflux disease) Heart failure with preserved ejection fraction Diabetic polyneuropathy Hypothyroidism CKD (chronic kidney disease), stage IV Atherosclerotic cardiovascular disease COPD (chronic obstructive pulmonary disease) Chronic hypoxemic respiratory failure Pneumonia due to COVID-19 virus Hypertension PVCs (premature ventricular contractions) Anemia Obesity (BMI 30.0-34.9) Diabetes mellitus, type II HLD (hyperlipidemia) Home Medications ?Medication ?Instructions ?Recorded ?Last Taken ?Type famotidine 40 mg tablet 40 mg PO DAILY GERD 07/13/18 Unknown History glimepiride 4 mg tablet 4 mg PO DAILY DIABETES 06/23 Unknown History levothyroxine 25 mcg tablet 25 mcg PO DAILY THYROID 03/23/24 History ascorbate calcium (vitamin C) 500 500 mg PO DAILY SUPP LEMENT 03/09/24 03/23/24 History mg tablet gabapentin 300 mg capsule 300 mg PO BID NEUROPATHY 11/21/24 History polysaccharide iron complex 150 mg 150 mg PO DAILY SUP PLEMENT 03/09/24 Unknown History iron capsule (Ferrex) aspirin 81 mg tablet,delayed 81 mg PO BREAKFAST heart #30 tabs 03/23/24 03/23/24 Rx release nitroglycerin 0.4 mg sublingual 0.4 mg sublingual Q5M PRN 03/23/24 03/16/24 Rx tablet Cardiac/Chest Pain #30 tabs amlodipine 5 mg tablet 5 mg PO DAILY 30 days #30 ta bs 04/07/24 Unknown Rx atorvastatin 40 mg tablet 40 mg PO QHS 30 days #30 tab s 04/07/24 11/20/24 Rx carvedilol 6.25 mg tablet 6.25 mg PO BID 30 days #60 t abs 04/07/24 11/21/24 Rx furosemide 40 mg tablet 40 mg PO BIDLX 30 days #60 t abs 04/07/24 11/21/24 Rx tamsulosin 0.4 mg capsule 0.4 mg PO DAILY@1730 30 days #30 04/07/24 11/20/24 Rx caps ranolazine 500 mg tablet,extended 500 mg PO BID #60 ta bs 09/13/24 11/21/24 Rx release,12 hr clopidogrel 75 mg tablet 75 mg PO DAILY 11/21/24 Unkn own History insulin degludec 200 unit/mL (3 40 unit subcut BID 12/09 Unknown History mL) subcutaneous pen (Tresiba FlexTouch U-200 insulin) trazodone 50 mg tablet 25 mg PO QHS 11/21/24 History Allergy/AdvReac Type Severity Reaction Status Date / Time No Known Allergies Allergy Verified 12/02/24 10:16 Family History Brother Diabetes Mother Diabetes Sister Diabetes Father Heart disease Surgical History Stented coronary artery (03/16/24) History of appendectomy Social History household members: none Smoking Status: Former smoker alcohol intake: never substance use type: does not use ROS ROS Narrative Admission Review of Systems: CONSTITUTIONAL: No weight loss, fever, chills, + weakness or fatigue. HEENT: + Lightheadedness, transient. Eyes: No visual loss, blurred vision, double vision or yellow sclerae. Ears, Nose, Throat: No hearing loss, sneezing, congestion, runny nose or sore throat. SKIN: No rash or itching, lesions, wounds. CARDIOVASCULAR: No chest pain, chest pressure or chest discomfort, palpitations,edema, orthopnea, syncopal events. RESPIRATORY: No shortness of breath, cough or sputum, wheezing, hemoptysis. GASTROINTESTINAL: No anorexia, nausea, vomiting or diarrhea, abdominal pain, melena, BRBPR. GENITOURINARY: No dysuria, frequency, urgency or retention. NEUROLOGICAL: + Chronic neuropathy, frequent falls, episode of dizziness. No headache, syncope, paralysis, ataxia, focal weakness, change in bowel or bladdercontrol, seizure. MUSCULOSKELETAL: + muscle, back pain, joint pain or stiffness. HEMATOLOGIC: + Chronic anemia, history of easy bleeding/bruising. LYMPHATICS: No enlarged nodes. No history of splenectomy. PSYCHIATRIC: No history of depression or anxiety. + Chronic insomnia. ENDOCRINOLOGIC: No reports of sweating, cold or heat intolerance. No polyuria orpolydipsia. ALLERGIES: No history of asthma, hives, eczema or rhinitis. Vital Signs Vital Signs Vital Signs: 12/02/24 10:16 12/02/24 10:19 12/02/24 11:28 Temperature 98.0 F 98.0 F Temperature Source Oral Oral Pulse Rate 73 68 69 Respiratory Rate 18 18 18 Blood Pressure 136/55 H 136/55 H 159/96 H Blood Pressure Mean 82 82 117 Pulse Ox 100 100 98 Oxygen Delivery Method Nasal Cannula Room Air Oxygen Flow Rate (L/min) 3 12/02/24 11:29 12/02/24 12:00 12/02/24 13:00 Temperature 98.0 F 98 F 98.1 F Temperature Source Oral Oral Oral Pulse Rate 69 70 71 Respiratory Rate 18 18 18 Blood Pressure 159/96 H 160/87 H 162/82 H Blood Pressure Mean 117 111 108 Pulse Ox 98 97 100 Oxygen Delivery Method Nasal Cannula Nasal Cannula Nasal Cannula Oxygen Flow Rate (L/min) 3 12/02/24 13:09 Temperature 98.1 F Temperature Source Pulse Rate 71 Respiratory Rate 18 Blood Pressure 162/82 H Blood Pressure Mean 108 Pulse Ox 100 Oxygen Delivery Method Oxygen Flow Rate (L/min) Weight Weight: 229 lb 11.2 oz Body Mass Index (BMI) 37.0 Physical Exam Narrative Physical Examination: General: Awake, alert, oriented to self, place and recent meds, notes feeling improved, states he was mildly dizzy this morning and did feel confused, feels back to his baseline, remains cooperative,seated upright in ED bed, eating, no acute distress, dextrose IV fluids being initiated. Skin: Normal color, normal turgor, no icterus, no cyanosis except for bilateral lower extremity venous stasis skin changes, occasional stage ecchymoses and abrasions. HEENT: AT/NC, EOMI, PERRLA, MMM, unable to discern any carotid bruits, difficultto discern JVD given thickened neck. Lungs: Diminished, greater bases, poor effort, no rales, ronchi or wheezing. Heart: Regular rate and rhythm; no gallop, rub audible. Abdomen: Soft, obese, NTTP, mildly hyperactive BS, no appreciated distention or HSM however habitusmakes evaluation difficult. Extremities: No cyanosis, no clubbing, pedal to mid castrejon 1-2+ pitting edema which he notes is chronic, see skin. Neurological: Patient awake, alert, oriented as noted, cognitive function suspect return to baseline intact; pupils equally reactive to light and accommodation, cranial nerves grossly normal, moving all 4 extremities, no focaldeficits, strength moderately globally decreased, improving. Psychiatric: Affect appears fatigued otherwise normal, no acute evidence of depressive or anxiety feelings. Results Lab / Micro Data 12/02/24 10:36 12/02/24 10:36 Labs: Laboratory Results - last 24 hr 12/02/24 10:21: POC Glucose 74 12/02/24 10:36: WBC 9.6, RBC 3.13 L, Hgb 9.8 L, Hct 29.5 L, MCV 94.2 H, MCH 31.3, MCHC 33.2, RDW Std Deviation 46.7 H, RDW Coeff of Elmer 13.8, Plt Count 173,MPV 10.2, Sodium 140, Potassium 4.3, Chloride 102, Carbon Dioxide 25.5, Anion Gap 12, BUN 33 H, Creatinine 2.18 H, Estim Creat Clear Calc 28.53L, Est GFR (MDRD) Non-Af 29 L, BUN/Creatinine Ratio 15.3, Glucose 77, Calcium 8.7 12/02/24 11:06: Urine Color Yellow, Urine Clarity Clear, Urine pH 7.0, Ur Specific Queen 1.010, Urine Protein Negative, Urine Glucose (UA) Normal, UrineKetones Negative, Urine Occult Blood Negative, Urine Nitrite Negative, Urine Bilirubin Negative, Urine Urobilinogen Normal, Ur Leukocyte Esterase Negative, Urine RBC 0 SEEN, Urine WBC 0 SEEN, Ur Squamous Epith Cells 0 SEEN, Urine Bacteria 0 SEEN, Urine Mucus 0 SEEN 12/02/24 12:44: POC Glucose 78 Rhythm Strip Rhythm Strip: Sinus Rhythm Rate: 69 Ectopy: None Imaging Radiology Impression Brain CT 12/02/24 11:22 IMPRESSION: 1. Generalized brain atrophy. 2. Small vessel ischemic/degenerative changes. 3. No acute intracranial hemorrhage, midline shift or mass effect. If symptoms persist, further evaluation with MRI is recommended. Reading Location: [facility] Acute Abdomen Series 12/02/24 11:30 IMPRESSION: No acute cardiopulmonary process identified radiographically. The patient appears to be mildly constipated. There is a mild ileus without evidence of bowel obstruction. Reading Location: [facility] Assessment & Plan Assessment/Plan (1) Encephalopathy acute: PLAN: Plan The patient is an 84 y/o M w/ PMHx: CAD s/p PCI, Former tobacco use, BPH with obstructive pathology, CKD stage IV, Chronic macrocytic anemia/iron deficiency anemia, GERD, HFpEF, HTN, HLD, Hypothyroidism, COPD with Chronic Hypoxic Respiratory Failure (2-3L NC), Diabetes mellitus type II with chronicneuropathy, Obesity who presents to [facility] ED on 12/02/2024 with history of an episode of confusion reportedly not recognizing his neighborsand unable to perform normal routine activities noted to be home alone and unclear exact onset time prompting EMS call with noted blood sugar 74 with improvement to 89 with mentation and confusion improving with patient reporting were calling being mildly confused but no other complaints aside from mild dizziness in the morning but this is completely resolved in addition to mild constipation over the last 2 to 3 days with no abdominal pain associated with recent evaluation in the ED 11/10/2024 secondary mechanical fall with unremarkable evaluation as time but given episode prompted ED evaluation. #1. Acute Metabolic Encephalopathy secondary to Acute Hypoglycemia with underlying Diabetes mellitus type II w/ chronic diabetic chronic neuropathy, suspect noncompliance potentially recurrent medication errors with adult failureto thrive, debility: Will admit to PCU, will continue IV dextrose suppl ementation, will hold oral home regimen, holding also scheduled long- actinginsulin, pending hemoglobin A1c requested, will allow broadened regular diet, maintain on serial q 1 hour accu checks until assure BS improving, nutrition consulted for education, procalcitonin requested, PT/OT/CM consulted f or discharge planning. Family is very concerned that patient is making medication errors and havingpotentially recurrent episodes of hypoglycemia with consideration for potential placement need. #2. Acute on chronic constipation: Plain film of the abdomen with significant evidence of a moderate to large amount of stool and gas present throughout the mildly distended colon, will initiate bowel regimen, monitor I's and O's. #3. CAD: Status post PCI, will continue aspirin/Plavix, statin, Coreg, not on KOBY/ARB likely secondary to underlying renal disease. #4. Chronic COPD with chronic hypoxic respiratory failure 2 to 3 L nasal cannula baseline: Will maintain on home oxygen supplementation, hold home inhalers in the interim maintain on ATC duonebs, PRNalbuterol, HOB, IS parameters. #5. HFpEF: Will continue aspirin/Plavix, statin, Coreg, Ranexa, not on KOBY/ARB likely secondary to underlying renal disease, continue Lasix regimen, monitor weights. Judiciously hydrating with dextrose solution, monitor for overload. #6. Chronic Kidney Disease Stage IV per GFR trending: Admission BUN/Cr 33/2.18,GFR 29, baseline renal function primarily 1.9-2.3 more recently, most recently noted 11/21/2024 creatinine 2.32, repeat BMP in AM. #7. Chronic macrocytic anemia/iron deficiency anemia: Admission hemoglobin 9.8,MCV 94.2 only mildlyelevated, baseline hemoglobin more recently 8-9 range, continue to trend. Continue iron supplementation. #8. Hypothyroidism: Will continue patient on levothyroxine regimen. #9. Hypertension: Continue home regimen including amlodipine, Coreg, Lasix withhold parameters as needed, PRN hydralazine. #10. Hyperlipidemia: Will continue patient home statin therapy. #11. BPH with obstructive pathology: Will continue patient home Flomax regimen,monitor for retention. #12. Former tobacco use: Encourage continued tobacco cessation. #13. GERD: Continue patient on famotidine regimen. #14. DVT prophylaxis: Heparin. #15. CODE status: Patient denies having healthcare power of employee benefits attorney or living will set up but he knows his daughter would be his medical decision-maker if necessary. Discussed CODE status at length including difference between FULL code, DNR-CCA and DNR-CC status. Following discussions about the differences in these status, requested Full Code status. He very specifically states however he wouldnot want anything long-term including any long-term intubation especially if there is no quality oflife. Advanced Care Planning Face to Face Time: 16 minutes. Charges/Coding Visit Charges Inpatient E&M: 41322 Init Hosp L3 Procedures Hospitalists Procedures: 28043 Advncd Care Plan 30 Min 12/02/24 1343 Cosigner Signature (if applicable): CC: Dr. Afsaneh Kapoor MD; Dr. Kain Bhakta MD~ Signed [facility]07-18-2025 Discharge summary [facility] Medical Records Department [address] [place] [address] Emergency Department Summary 12/02/24 MR#: [id number] Acct: [id number] Name: JUNIOR BOONE Rep #:[id number] : 1940 84 From: Tsering San PCP: Dr. Kain Bhakta MD Status:REG E R Location: ED HPI History of Present Illness Chief Complaint: Confusion Informant: patient Narrative Narrative: Patient is an 84-year-old male with history of CKD stage IV, COPD, chronic respiratory failure on 2to 3 L of oxygen at baseline, hyperlipidemia, diabetes mellitus, hypertension and hypothyroidism presenting for episode of confusion. Patient was home alone. Reportedly had an episode of confusions where he did not recognize his neighbors. He had a hard time parent how to eat yogurt. EMS was called. His blood sugar was 74 and was given glucose per EMS and blood sugar went up to 89. His mentation and confusion improved. He states he is otherwise been in his normal state of health. Recalls being confused but nothing else. Denies associated chest pain, shortness of breath or vision changes. Does remember feeling dizzy this morning. Currently feels back to hisnormal state of health. Denies any recent urinary symptoms. States he has beenconstipated for the past 2 to 3 days. States over the past year he has had someincreased constipation. Denies associate abdominal pain. Did have a fall 1 week ago (was seen in the ER on 11/10/2024 for mechanical fall where he had a CT of the brain, face and cervical spine which were negative for any acute process). 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 Vitamin D deficiency GERD (gastroesophageal reflux disease) Heart failure with preserved ejection fraction Diabetic polyneuropathy Hypothyroidism CKD (chronic kidney disease), stage IV Atherosclerotic cardiovascular disease COPD (chronic obstructive pulmonary disease) Chronic hypoxemic respiratory failure Pneumonia due to COVID-19 virus Hypertension PVCs (premature ventricular contractions) Anemia Obesity (BMI 30.0-34.9) Diabetes mellitus, type II HLD (hyperlipidemia) Home Medications ?Medication ?Instructions ?Recorded ?Last Taken ?Type famotidine 40 mg tablet 40 mg PO DAILY GERD 07/13/18 Unknown History glimepiride 4 mg tablet 4 mg PO DAILY DIABETES 06/23 Unknown History levothyroxine 25 mcg tablet 25 mcg PO DAILY THYROID 03/23/24 History ascorbate calcium (vitamin C) 500 500 mg PO DAILY SUPP LEMENT 03/09/24 03/23/24 History mg tablet gabapentin 300 mg capsule 300 mg PO BID NEUROPATHY 11/21/24 History polysaccharide iron complex 150 mg 150 mg PO DAILY SUP PLEMENT 03/09/24 Unknown History iron capsule (Ferrex) aspirin 81 mg tablet,delayed 81 mg PO BREAKFAST heart #30 tabs 03/23/24 03/23/24 Rx release nitroglycerin 0.4 mg sublingual 0.4 mg sublingual Q5M PRN 03/23/24 03/16/24 Rx tablet Cardiac/Chest Pain #30 tabs amlodipine 5 mg tablet 5 mg PO DAILY 30 days #30 ta bs 04/07/24 Unknown Rx atorvastatin 40 mg tablet 40 mg PO QHS 30 days #30 tab s 04/07/24 11/20/24 Rx carvedilol 6.25 mg tablet 6.25 mg PO BID 30 days #60 t abs 04/07/24 11/21/24 Rx furosemide 40 mg tablet 40 mg PO BIDLX 30 days #60 t abs 04/07/24 11/21/24 Rx tamsulosin 0.4 mg capsule 0.4 mg PO DAILY@1730 30 days #30 04/07/24 11/20/24 Rx caps ranolazine 500 mg tablet,extended 500 mg PO BID #60 ta bs 09/13/24 11/21/24 Rx release,12 hr clopidogrel 75 mg tablet 75 mg PO DAILY 11/21/24 Unkn own History insulin degludec 200 unit/mL (3 40 unit subcut BID 12/09 Unknown History mL) subcutaneous pen (Tresiba FlexTouch U-200 insulin) trazodone 50 mg tablet 25 mg PO QHS 11/21/24 History Allergy/AdvReac Type Severity Reaction Status Date / Time No Known Allergies Allergy Verified 12/02/24 10:16 Family History Brother Diabetes Mother Diabetes Sister Diabetes Father Heart disease Surgical History Stented coronary artery (03/16/24) History of appendectomy Social History household members: none Smoking Status: Former smoker alcohol intake: never substance use type: does not use ROS ROS ED Constitutional Constitutional ED: Denies chills or fever(s) Eyes Eyes: Denies change in vision ENT ENT ED: Denies rhinorrhea or sore throat Cardiovascular Cardiovascular: Denies chest pain or palpitations Respiratory/Chest Respiratory/Chest: Denies cough or dyspnea Gastrointestinal Gastrointestinal: Reports constipation; Denies abdominal pain, nausea or vomiting Genitourinary Genitourinary ED: Denies dysuria or urinary frequency Musculoskeletal Musculoskeletal: Denies arthralgias or myalgias Integumentary Reports Abrasions and other Details: On knees associated with fall couple weeks ago Neurologic Neurologic: Reports other Details: Episode of confusion ; Denies headache(s), paresthesias or weakness Hematologic/Lymphatic Hematologic/Lymphatic: Denies easy bleeding or easy bruising EXAM Physical Exam Const Vital Signs: 12/02/24 10:16 12/02/24 10:19 12/02/24 11:28 Temperature 98.0 F 98.0 F Temperature Source Oral Oral Pulse Rate 73 68 69 Respiratory Rate 18 18 18 Blood Pressure 136/55 H 136/55 H 159/96 H Blood Pressure Mean 82 82 117 Pulse Ox 100 100 98 Oxygen Delivery Method Nasal Cannula Room Air Oxygen Flow Rate (L/min) 3 12/02/24 11:29 12/02/24 12:00 12/02/24 13:00 Temperature 98.0 F 98 F 98.1 F Temperature Source Oral Oral Oral Pulse Rate 69 70 71 Respiratory Rate 18 18 18 Blood Pressure 159/96 H 160/87 H 162/82 H Blood Pressure Mean 117 111 108 Pulse Ox 98 97 100 Oxygen Delivery Method Nasal Cannula Nasal Cannula Nasal Cannula Oxygen Flow Rate (L/min) 3 12/02/24 13:09 Temperature 98.1 F Temperature Source Pulse Rate 71 Respiratory Rate 18 Blood Pressure 162/82 H Blood Pressure Mean 108 Pulse Ox 100 Oxygen Delivery Method Oxygen Flow Rate (L/min) General Appearance ED: pallor HEENT Reports moist mucous membranes Eyes PERRL and EOMs intact bilaterally Neck supple and no JVD Chest Wall inspection of chest normal and palpation of chest normal Resp normal respiratory effort and clear to auscultation bilaterally Cardio regular rate, regular rhythm and no murmurs GI non-tender and non-distended Auscultation: hypoactive bowel sounds Palpation: soft; Negative for tender or guarding Extremity Extremity Narrative: No obvious deformity. Pretibial pitting edema present?trace Neuro oriented x3, CN's II-XII intact bilaterally and no sensory deficits noted Neuro Narrative: Patient recalls being confused and is acting completely appropriate at this time Sensorium / Orientation: alert Sensory Exam: No sensory level loss detected Motor Exam: strength 5/5 throughout; Negative for general weakness Psych mental status grossly normal Skin no wounds Skin Narrative: Healing abrasions to the bilateral knees, no acute abrasions. General Skin Exam: pallor; Negative for jaundice MDM MDM MDM Narrative Medical decision making narrative: Patient valuated for episode of confusion this morning that improved with receiving oral glucose. Differential includes transient hypoglycemia, infection, symptomatic anemia, subdural hemorrhage with delayed bleed (given fall couple weeks ago), pneumonia or other underlying infectious etiology, KALYN, and arrhythmia. Workup shows blood glucose of 74 (repeated 2 hours later and is 78). He is ambulated and generally weak. Lab work otherwise largely stable. His hemoglobin is low at 9.8 which appears to be at his baseline and actually improved from 11 days ago. CMP shows chronic kidney disease but otherwise normal/at his baseline. EKG does not show any ischemic changes in his arm and chest pain or any cardiac symptoms. Not think he needs troponins. Urinalysis is normal not consistent with infection. Chart review shows that patient's previously been in the hospital his blood sugar is usually above 150 to the low 200s. I suspect that blood sugar in the 70s is actually relative hypoglycemia for him. He attempted ambulation in the ER was quite weak per nursing staff. Spoke with patient and his daughter on thephone who is concerned about his ability to live at home alone and thinks that he needs assisted living. Patient is amenable to admission at this time. His daughter also states he does notcheck his blood sugar at home but continues to give himself his insulin. Case discussed with hospitalist, Dr. Kapoor for admission. Patient remained hemodynamically stable in emergency room. He started on D5 drip for concern of further hypoglycemia/relative hypoglycemia. Abdominal series does show constipation. No other acute process. Chest x-ray reviewed is normal. Imaging reviewed by myself as well as radiology. Lab Data Attestation: I reviewed the patient's lab results. Labs: Laboratory Results - last 24 hr 12/02/24 12/02/24 12/02/24 10:21 10:36 11:06 WBC 9.6 RBC 3.13 L Hgb 9.8 L Hct 29.5 L MCV 94.2 H MCH 31.3 MCHC 33.2 RDW Std Deviation 46.7 H RDW Coeff of Elmer 13.8 Plt Count 173 MPV 10.2 Sodium 140 Potassium 4.3 Chloride 102 Carbon Dioxide 25.5 Anion Gap 12 BUN 33 H Creatinine 2.18 H Estim Creat Clear Calc 28.53 L Est GFR (MDRD) Non-Af 29 L BUN/Creatinine Ratio 15.3 Glucose 77 Calcium 8.7 Urine Color Yellow Urine Clarity Clear Urine pH 7.0 Ur Specific Queen 1.010 Urine Protein Negative Urine Glucose (UA) Normal Urine Ketones Negative Urine Occult Blood Negative Urine Nitrite Negative Urine Bilirubin Negative Urine Urobilinogen Normal Ur Leukocyte Esterase Negative Urine RBC 0 SEEN Urine WBC 0 SEEN Ur Squamous Epith Cells 0 SEEN Urine Bacteria 0 SEEN Urine Mucus 0 SEEN POC Glucose 74 12/02/24 12:44 WBC RBC Hgb Hct MCV MCH MCHC RDW Std Deviation RDW Coeff of Elmer Plt Count MPV Sodium Potassium Chloride Carbon Dioxide Anion Gap BUN Creatinine Estim Creat Clear Calc Est GFR (MDRD) Non-Af BUN/Creatinine Ratio Glucose Calcium Urine Color Urine Clarity Urine pH Ur Specific Queen Urine Protein Urine Glucose (UA) Urine Ketones Urine Occult Blood Urine Nitrite Urine Bilirubin Urine Urobilinogen Ur Leukocyte Esterase Urine RBC Urine WBC Ur Squamous Epith Cells Urine Bacteria Urine Mucus POC Glucose 78 Radiography Diagnostic Testing: Clinical Impression(s) from Imaging Studies Brain CT 12/02/24 11:22 IMPRESSION: 1. Generalized brain atrophy. 2. Small vessel ischemic/degenerative changes. 3. No acute intracranial hemorrhage, midline shift or mass effect. If symptoms persist, further evaluation with MRI is recommended. Reading Location: [facility] Acute Abdomen Series 12/02/24 11:30 IMPRESSION: No acute cardiopulmonary process identified radiographically. The patient appears to be mildly constipated. There is a mild ileus without evidence of bowel obstruction. Reading Location: [facility] Rhythm Strip Rhythm Strip: Sinus Rhythm Rate: 69 Ectopy: None EKG Initial EKG: Attestation: I personally reviewed and interpreted this EKG as follows: Interpretation: Sinus Rhythm Comments: Normal sinus rhythm with first-degree AV block at a rate of 69 bpm Parable 250 Voltage criteria for LVH Left axis deviation Normal intervals Normal ST segments Prior EKG tracings: available for review Prior: Unchanged Management Discussion w/another healthcare provider: Hospitalist Discharge Plan Triage Chief Complaint: Confusion ED Provider: Tsering Emanuel Dx/Rx/DC Orders Clinical Impression: Episode of confusion, Hypoglycemia, Constipation, Insulin dependent diabetes mellitus Prescriptions: No Action ascorbate calcium (vitamin C) 500 mg tablet 500 mg PO DAILY polysaccharide iron complex [Ferrex 150] 150 mg iron capsule 150 mg PO DAILY ranolazine 500 mg tablet extended release 12 hr 500 mg PO BID Qty: 60 11RF famotidine 40 MG tablet 40 mg PO DAILY gabapentin 300 mg capsule 300 mg PO BID glimepiride 4 mg Tablet 4 mg PO DAILY levothyroxine 25 mcg Tablet 25 mcg PO DAILY furosemide 40 mg Tablet 40 mg PO BIDLX 30 Days Qty: 60 0RF atorvastatin 40 mg Tablet 40 mg PO QHS 30 Days Qty: 30 0RF carvedilol 6.25 mg Tablet 6.25 mg PO BID 30 Days Qty: 60 0RF amlodipine 5 mg Tablet 5 mg PO DAILY 30 Days Qty: 30 0RF tamsulosin 0.4 mg Capsule 0.4 mg PO DAILY@1730 30 Days Qty: 30 0RF nitroglycerin 0.4 mg Tablet, Sublingual 0.4 mg sublingual Q5M PRN (Reason: Cardiac/Chest Pain) Qty: 30 2RF aspirin 81 mg Tablet,Delayed Release (Dr/Ec) 81 mg PO BREAKFAST Qty: 30 2RF insulin degludec [Tresiba FlexTouch U-200] 200 unit/mL (3 mL) insulin pen 40 unit subcut BID clopidogrel 75 mg tablet 75 mg PO DAILY trazodone 50 mg tablet 25 mg PO QHS Primary Care Provider: Kain Bhakta Chi Referrals: Kain Bhakta Chi, MD [Primary Care Provider] - Print Language: Sierra Leonean Disposition Disposition: Acute Care Hospital [facility] What to do if you have Problems For any increased pain, shortness of breath, bleeding, nausea or vomiting, chestpain, or any unexpected problems, contact your Primary Care Provider. Call [facility] ([phone]) or report tothe closest Emergency Room. Call 911 if necessary. 12/02/24 1331 Cosigner Signature (if applicable): CC: Dr. Kain Bhakta MD ~ Signed [facility]07-18-2025 Radiology Diagnostic study note [facility] Imaging Services [address] [place] [address] Acute Abdomen Inc Chest MR#: [id number] Acct: [id number] Name: JUNIOR BOONE Rep #: [id number] : 1940 M 84 From: Ramakrishna Castro DO PCP: Dr. Kain Bhakta MD Status: REG E R Study:Acute Abdomen Inc Chest Date of Exam: 12/02/24 Exam# [id number] Ordering Dr: Tosin Emanuel DO PROCEDURE: ACUTE ABDOMEN INC CHEST 12/02/2024 REASON FOR EXAM: CONSTIPATION TECHNIQUE: ACUTE ABDOMEN INC CHEST COMPARISON: Chest x-ray dated 11/21/2024 and 03/28/2024 FINDINGS: Hardware: Cardiac leads overlie the chest. Heart: Stable mild cardiomegaly. Mediastinum: Arteriosclerotic vascular disease of the aorta is noted. Pulmonaryvasculature is unremarkable. Trachea is midline. Lungs: Stable increased markings are identified in the lung bases compatible with bibasilar scarring. Bowel gas: A moderate to large amount of stool and gas is present throughout a mildly distended colon. The ascending colon measures 7. 1 cm. There are a few gas-filled loops of small bowel seen. No free air is noted. Psoasmuscles and renal outlines are partially obscured by overlying bowel gas and fecal material withinthe colon. No grossorganomegaly is seen. No abnormal calcific densities are seen in the abdomen or pelvis to suggest renal or ureteral stones. Free air: None Calcifications: Phleboliths are seen in the pelvis. Bones: Degenerative changes of the thoracic spine, lumbar spine, and both shoulders are noted. RAD/Acute Abdomen Inc Chest IMPRESSION: No acute cardiopulmonary process identified radiographically. The patient appears to be mildly constipated. There is a mild ileus without evidence of bowel obstruction. Reading Location: [id number] CC: Dr. Tsering Emanuel DO; Dr. Kain Bhakta MD ~ Vegetable Buncher: Signed [facility]07-18-2025 Radiology Diagnostic study note [facility] Imaging Services [address], [place] [address] Brain/Head without Contrast MR#: [id number] Acct: [id number] Name: JUNIOR BOONE Rep #: [id number] : 1940 M 84 From: Tanna Drew MD PCP: Dr. Kain Bhakta MD Status: REG E R Study:Brain/Head without Contrast Date of Exa m: 12/02/24 Exam# [id number] Ordering Dr: Tosin Emanuel DO EXAM: CT Head Without Intravenous Contrast CLINICAL INDICATION: CONFUSION TECHNIQUE: Axial computed tomography images of the head/brain without intravenous contrast. This CTexam was performed using one or more of the following dose reduction techniques: automated exposure control, adjustment of the mA and/or kV according to patient size, and/or use of iterative reconstruction technique. COMPARISON: No relevant prior studies available. FINDINGS: BRAIN AND EXTRA-AXIAL SPACES: The cerebral and cerebellar sulci are prominent consistent with brainatrophy. Areas of decreased attenuation in the deep cerebral white matter are consistent with small vessel ischemic/degenerative changes. No acute intracranial hemorrhage, midline shift or mass effect. If symptoms persist, further evaluation withMRI is recommended. BONES/JOINTS: Unremarkable. No acute fracture. SOFT TISSUES: Unremarkable. SINUSES: Unremarkable as visualized. No acute sinusitis. MASTOID AIR CELLS: Unremarkable as visualized. No mastoid effusion. CT/Brain/Head without Contrast IMPRESSION: 1. Generalized brain atrophy. 2. Small vessel ischemic/degenerative changes. 3. No acute intracranial hemorrhage, midline shift or mass effect. If symptoms persist, further evaluation with MRI is recommended. Reading Location: [facility] CC: Dr. Tsering Emanuel DO; Dr. Kain Bhakta MD ~ Vegetable Buncher: Signed [facility]07-16-2025 Evaluation note* Diagnosis Onset Date Resolution Status Admit Date Edema acute November 30 9:20am Essential (primary) hypertension acute November 30, 2024 9:20am Right carotid bruit acute November 30, 2024 9:20am Anemia chronic November 30 9:20am HLD (hyperlipidemia) chronic November 30, 2024 9:20am Stented coronary artery March 16, 2024 reso lved November 30, 2024 9:20am Encephalopathy acute resolved December 02, 2024 1:18pm BPH (benign prostatic hyperplasia) acute December 05, 2024 6:20pm Chronic heart failure with preserved ejection fraction (HFpEF) acute December 05, 2024 6:20pm Coronary artery disease acute 2024 6:20pm Debility acute December 05 6:20pm Diabetic polyneuropathy acute 2024 6:20pm Hypothyroidism acute December 05, 2024 6:20pm Morbid obesity acute December 05, 2024 6:20pm Type 2 diabetes mellitus with hyperglycemia acute December 05 6:20pm Chronic hypoxemic respiratory failure chronic December 05, 025 6:20pm CKD (chronic kidney disease), stage IV chronic December 05 6:20pm COPD (chronic obstructive pulmonary disease) chronic December 05 6:20pm HLD (hyperlipidemia) chronic December 05, 2024 6:20pm Encephalopathy resolved December 05, 2024 6:20pm Hypoglycemia resolved December 05, 025 6:20pm Chest pain acute March 08, 2025 1:30pm Chronic heart failure with preserved ejection fraction (HFpEF) acute March 08 1:30pm Coronary artery disease acute O ctober 2024 1:30pm Essential (primary) hypertension acute March 08 1:30pm [facility] Work Phone: [phone]) 767-444807-07-2025 Discharge summary [facility] Medical Records Department [address] [place] [address] Emergency Department Summary 11/21/24 MR#: [id number] Acct: [id number] Name: JUNIOR BOONE Rep #:[id number] : 1940 84 From: Trae Madsen DO PCP: Dr. Kain Bhakta MD Status:REG E R Location: ED ADDENDUM by Dr. Vamshi Lopez MD on 11/21/24 at 1651 Patient turned over to me by the morning physician. Patient himself has no complaints. He was sent over from his primary care physician's office due to a low CO2 on his labs. Patient has a known history of COPD is chronically on oxygen usually 2 to 3 L. He denies any worse shortness of breath. He denies any chest pain. He denies any vomiting or diarrhea. He denies any fever or dysuria. Exam 84-year-old man lying in bed. Vital signs are stable afebrile. On 2 L at 100%. He does not look septic toxic or in any distress. H EENT exam pupils round react to light. Mytrex members. Neck nontender no JVD. Lungs coarse breath sounds. Few scattered wheezes. No distress. Heart regular rhythm normal rate about 75 no murmur. Chest wall ribs nontender. Abdomen soft nontender. Moving all 4 extremities. Trace edema both lower extremities. Dorsi plantarflexion intact. Normal strength. Neurologically patient is awake alert. Answer questions following commands. Patient wants to be discharged home. He has no complaints. Patient requested be fed prior to discharge. I did speak to his primary care physician Dr. Bhakta. Dr. Bhakta said that the patient was at his baseline in his office he was just concerned because of CO2.We went over the patient's labs, exam, EKG and chest x-ray. We are both comfortable let the patientbe discharged home. Patient absolutely wants to go home and he will follow-up withDr. Bhakta's officeand Dr. Bhakta will have his office follow-up to check on the patient. Labs show a chronic anemia. Blood gas shows an elevated CO2 but a normal pH of 7.39. Chest x-ray ischronic. EKG is unremarkable. Patient will be dischargedhome. Clinically looks well at 4:45 PM. 11/21/24 1651 Cosigner Signature (if applicable): cc: Dr. Kain Bhakta MD ~* Signed HPI History of Present Illness Chief Complaint: Abn Labs Narrative Narrative: Patient is a 84-year-old male with past medical history of heart failure with preserved ejection fraction, hypothyroidism, chronic kidney disease, chronic hypoxic respiratory failure chronically on nasal cannula 3 to 4 L, diabetes, hyperlipidemia who presented to the emergency department chief complaint of abnormal blood work. He states that he is following up with his primary care physician today and they advised him that he should return to the emergency department to be further evaluated as his carbon oxide level was low. Patient did note that he has been eating and drinking. Patient himself has no complaints at this point time. 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 Vitamin D deficiency SOB (shortness of breath) GERD (gastroesophageal reflux disease) Heart failure with preserved ejection fraction Diabetic polyneuropathy Hypothyroidism CKD (chronic kidney disease), stage IV Atherosclerotic cardiovascular disease COPD (chronic obstructive pulmonary disease) Chronic hypoxemic respiratory failure Pneumonia due to COVID-19 virus Hypertension PVCs (premature ventricular contractions) Anemia Obesity (BMI 30.0-34.9) Diabetes mellitus, type II HLD (hyperlipidemia) Chest pain Home Medications ?Medication ?Instructions ?Recorded ?Last Taken ?Type famotidine 40 mg tablet 40 mg PO DAILY GERD 07/13/18 Unknown History glimepiride 4 mg tablet 4 mg PO DAILY DIABETES 06/23 Unknown History levothyroxine 25 mcg tablet 25 mcg PO DAILY THYROID 03/23/24 History ascorbate calcium (vitamin C) 500 500 mg PO DAILY SUPP LEMENT 03/09/24 03/23/24 History mg tablet gabapentin 300 mg capsule 300 mg PO BID NEUROPATHY 11/21/24 History polysaccharide iron complex 150 mg 150 mg PO DAILY SUP PLEMENT 03/09/24 Unknown History iron capsule (Ferrex) aspirin 81 mg tablet,delayed 81 mg PO BREAKFAST heart #30 tabs 03/23/24 03/23/24 Rx release nitroglycerin 0.4 mg sublingual 0.4 mg sublingual Q5M PRN 03/23/24 03/16/24 Rx tablet Cardiac/Chest Pain #30 tabs amlodipine 5 mg tablet 5 mg PO DAILY 30 days #30 ta bs 04/07/24 Unknown Rx atorvastatin 40 mg tablet 40 mg PO QHS 30 days #30 tab s 04/07/24 11/20/24 Rx carvedilol 6.25 mg tablet 6.25 mg PO BID 30 days #60 t abs 04/07/24 11/21/24 Rx furosemide 40 mg tablet 40 mg PO BIDLX 30 days #60 t abs 04/07/24 11/21/24 Rx tamsulosin 0.4 mg capsule 0.4 mg PO DAILY@1730 30 days #30 04/07/24 11/20/24 Rx caps ranolazine 500 mg tablet,extended 500 mg PO BID #60 ta bs 09/13/24 11/21/24 Rx release,12 hr clopidogrel 75 mg tablet 75 mg PO DAILY 11/21/24 Unkn own History insulin degludec 200 unit/mL (3 40 unit subcut BID 12/09 Unknown History mL) subcutaneous pen (Tresiba FlexTouch U-200 insulin) trazodone 50 mg tablet 25 mg PO QHS 11/21/24 History Allergy/AdvReac Type Severity Reaction Status Date / Time No Known Allergies Allergy Verified 11/21/24 12:30 Family History Brother Diabetes Mother Diabetes Sister Diabetes Father Heart disease Surgical History Stented coronary artery (03/16/24) History of appendectomy Social History household members: none Smoking Status: Former smoker alcohol intake: never substance use type: does not use ROS ROS ED ROS Narrative Constitutional: Denies any fevers, chills, headaches, lightness, dizziness Eyes: Denies changes double or blurry vision Cardiovascular: Chest pain Respiratory: Denies shortness of breath Abdomen: Denies abdominal pain nausea vomit diarrhea : Denies urinary symptoms Neurological: Denies numbness, wheeze, tingling Musculoskeletal: Denies back pain Skin: Denies any rashes or lesions EXAM Physical Exam Narrative Exam Narrative: General: Patient lying in bed rest comfortably do not appear to be in acute distress Head: Atraumatic, normocephalic Eyes: PERRL bilaterally, EOMI blood, no conjunctival injection noted Neck: Soft, supple, trachea midline Cardiovascular: Regular rate and rhythm no murmurs gallops rubs noted Respiratory: Clear to auscultation bilaterally Abdomen: Soft, nondistended, no tenderness to palpation Extremities: +5/5 strength noted in the bilateral upper and lower extremities, radial pulses +2/4 in the bilateral extremities Neurological: Patient following commands that he was at [facility] year [id number] Skin: Warm, dry, tact no rashes or lesions noted Const Vital Signs: 11/21/24 12:30 11/21/24 12:58 11/21/24 13:01 Temperature 97.1 F L Temperature Source Temporal Pulse Rate 80 Respiratory Rate 20 H Respiratory Pattern Normal Blood Pressure 123/58 H Blood Pressure Mean 79 Pulse Ox 92 96 Oxygen Delivery Method Nasal Cannula Nasal Cannula Oxygen Flow Rate (L/min) 2 2 11/21/24 13:28 11/21/24 14:00 Temperature 98.4 F 98.4 F Temperature Source Oral Oral Pulse Rate 69 70 Respiratory Rate 22 H 19 H Respiratory Pattern Blood Pressure 109/61 124/68 H Blood Pressure Mean 77 86 Pulse Ox 99 95 Oxygen Delivery Method Nasal Cannula Nasal Cannula Oxygen Flow Rate (L/min) 2 2 MDM MDM MDM Narrative Medical decision making narrative: Patient is a 84-year-old male who presented to the emergency department chief complaint of abnormalblood work and concern for CO2 level that was low on his chemistries. On the differential diagnose includes but not limited to dehydration, GI bleed, lab rare, UTI. Once workup is obtained reviewed he will be reevaluated. Patient's CBC reviewed showed no evidence leukocytosis white blood count normal at 6.7, hemoglobin is down to 8.7 from 9.8 earlier today, plate count 182, INR normal at 1.1, PT of 14.4. Patient's ABGreviewed showed pH 7.39 with PCO2 of 60.3 is chronic retention. Patient's chemistries are pending. Did do a rectal exam this was sent down for lab testing and is pending. Results will be signed out to oncoming provider to follow-up on these and make ultimate dispositionsee the note for the details. Lab Data Labs: Laboratory Results - last 24 hr 11/21/24 13:25 WBC 6.7 RBC 2.84 L Hgb 8.7 L Hct 27.2 L MCV 95.8 H MCH 30.6 MCHC 32.0 RDW Std Deviation 46.6 H RDW Coeff of Elmer 13.3 Plt Count 182 MPV 9.6 Immature Gran % (Auto) 0.500 Neut % (Auto) 68.6 Lymph % (Auto) 18.5 L Bonner % (Auto) 8.7 Eos % (Auto) 3.2 Baso % (Auto) 0.5 Absolute Neuts (auto) 4.6 Absolute Lymphs (auto) 1.23 Nucleated RBC % 0 PT 14.4 INR 1.1 APTT 33.9 ABG Data ABG results: ABG 11/21/24 13:35 Specimen Type ART Sample Site L Brach pH 7.39 Bicarbonate Actual 36.7 H Total CO2 39 Base Excess 12 H O2 Saturation 97 O2 % 2.0 ABG pCO2 60.3 H ABG pO2 98 Rhea Test N/A O2 Delivery Device Cannula Vent Mode Not entered Radiography Diagnostic Testing: Clinical Impression(s) from Imaging Studies Chest X-Ray 11/21/24 13:52 IMPRESSION: Stable examination suggestive of bibasilar scarring as described. Reading Location: [facility] Discharge Plan Triage Chief Complaint: Abn Labs ED Provider: Trae Madsen Dx/Rx/DC Orders Prescriptions: No Action ascorbate calcium (vitamin C) 500 mg tablet 500 mg PO DAILY polysaccharide iron complex [Ferrex 150] 150 mg iron capsule 150 mg PO DAILY ranolazine 500 mg tablet extended release 12 hr 500 mg PO BID Qty: 60 11RF famotidine 40 MG tablet 40 mg PO DAILY gabapentin 300 mg capsule 300 mg PO BID glimepiride 4 mg Tablet 4 mg PO DAILY levothyroxine 25 mcg Tablet 25 mcg PO DAILY furosemide 40 mg Tablet 40 mg PO BIDLX 30 Days Qty: 60 0RF atorvastatin 40 mg Tablet 40 mg PO QHS 30 Days Qty: 30 0RF carvedilol 6.25 mg Tablet 6.25 mg PO BID 30 Days Qty: 60 0RF amlodipine 5 mg Tablet 5 mg PO DAILY 30 Days Qty: 30 0RF tamsulosin 0.4 mg Capsule 0.4 mg PO DAILY@1730 30 Days Qty: 30 0RF nitroglycerin 0.4 mg Tablet, Sublingual 0.4 mg sublingual Q5M PRN (Reason: Cardiac/Chest Pain) Qty: 30 2RF aspirin 81 mg Tablet,Delayed Release (Dr/Ec) 81 mg PO BREAKFAST Qty: 30 2RF insulin degludec [Tresiba FlexTouch U-200] 200 unit/mL (3 mL) insulin pen 40 unit subcut BID clopidogrel 75 mg tablet 75 mg PO DAILY trazodone 50 mg tablet 25 mg PO QHS Primary Care Provider: Kain Bhakta Chi Referrals: Kain Bhakta Chi, MD [Primary Care Provider] - Print Language: [place] Leonean What to do if you have Problems For any increased pain, shortness of breath, bleeding, nausea or vomiting, chestpain, or any unexpected problems, contact your Primary Care Provider. Call [facility] ([phone]) or report tothe closest Emergency Room. Call 911 if necessary. 11/21/24 1453 Cosigner Signature (if applicable): CC: Dr. Kain Bhakta MD ~ Signed [facility]07-07-2025 Radiology Diagnostic study note [facility] Imaging Services [address], [place] [address] Chest PA and Lateral MR#: [id number] Acct: [id number] Name: JUNIOR BOONE Rep #: [id number] : 1940 M 84 From: Ashish Webb MD PCP: Dr. Kain Bhakta MD Status: PRE E R Study:Chest PA and Lateral Date of Exam: 11/21/24 Exam# [id number] Ordering Dr: Ap Madsen DO PROCEDURE: CHEST PA AND LATERAL 11/21/2024 REASON FOR EXAM: SOB TECHNIQUE: CHEST PA AND LATERAL COMPARISON: Prior study dated March 28, 2024. FINDINGS: Hardware: EKG electrodes are seen. Heart: Mild cardiomegaly. Mediastinum: Calcification of the aortic arch. Lungs: Stable increased markings at the lung bases with areas of confluence suggestive of bibasilarscarring. There has been no change. Bones: Degenerative changes are identified within the thoracic spine. Joint space narrowing of bothshoulder joints. RAD/Chest PA and Lateral IMPRESSION: Stable examination suggestive of bibasilar scarring as described. Reading Location: [facility] CC: Dr. Kain Bhakta MD; Dr. Trae Madsen DO ~ Vegetable Buncher: Signed [facility]07-07-2025 Discharge summary Author Trae Madsne [facility] Note Date/Time November 21, 2024 4:51p m [facility] Medical Records Department [address] [place] [address] Emergency Department Summary 11/21/24 MR#: [id number] Acct: [id number] Name: JUNIOR BOONE Rep #:[id number] : 1940 84 From: Trae Madsen DO PCP: Dr. Kain Bhakta MD Status:REG E R Location: ED ADDENDUM by Dr. Vamshi Lopez MD on 11/21/24 at 1651 Patient turned over to me by the morning physician. Patient himself has no complaints. He was sent over from his primary care physician's office due to a low CO2 on his labs. Patient has a known history of COPD is chronically on oxygen usually 2 to 3 L. He denies any worse shortness of breath. He denies any chest pain. He denies any vomiting or diarrhea. He denies any fever or dysuria. Exam 84-year-old man lying in bed. Vital signs are stable afebrile. On 2 L at 100%. He does not look septic toxic or in any distress. H EENT exam pupils round react to light. Mytrex members. Neck nontender no JVD. Lungs coarse breath sounds. Few scattered wheezes. No distress. Heart regular rhythm normal rate about 75 no murmur. Chest wall ribs nontender. Abdomen soft nontender. Moving all 4 extremities. Trace edema both lower extremities. Dorsi plantarflexion intact. Normal strength. Neurologically patient is awake alert. Answer questions following commands. Patient wants to be discharged home. He has no complaints. Patient requested be fed prior to discharge. I did speak to his primary care physician Dr. Bhakta. Dr. Bhakta said that the patient was at his baseline in his office he was just concerned because of CO2. We went over the patient's labs, exam, EKG and chest x-ray. We are both comfortable let the patient be discharged home. Patient absolutely wants to go home and he will follow-up withDr. Bhakta's office and Dr. Bhakta will have his office follow-up to check on the patient. Labs show a chronic anemia. Blood gas shows an elevated CO2 but a normal pH of 7.39. Chest x-ray is chronic. EKG is unremarkable. Patient will be dischargedhome. Clinically looks well at 4:45 PM. 11/21/24 8061<Electronically signed by Vamshi Lopez MD> Cosigner Signature (if applicable): cc: Dr. Kain Bhakta MD ~* Signed HPI History of Present Illness Chief Complaint: Abn Labs Narrative Narrative: Patient is a 84-year-old male with past medical history of heart failure with preserved ejection fraction, hypothyroidism, chronic kidney disease, chronic hypoxic respiratory failure chronically on nasal cannula 3 to 4 L, diabetes, hyperlipidemia who presented to the emergency department chief complaint of abnormal blood work. He states that he is following up with his primary care physician today and they advised him that he should return to the emergency department to be further evaluated as his carbon oxide level was low. Patient did note that he has been eating and drinking. Patient himself has no complaints at this point time. 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 Vitamin D deficiency SOB (shortness of breath) GERD (gastroesophageal reflux disease) Heart failure with preserved ejection fraction Diabetic polyneuropathy Hypothyroidism CKD (chronic kidney disease), stage IV Atherosclerotic cardiovascular disease COPD (chronic obstructive pulmonary disease) Chronic hypoxemic respiratory failure Pneumonia due to COVID-19 virus Hypertension PVCs (premature ventricular contractions) Anemia Obesity (BMI 30.0-34.9) Diabetes mellitus, type II HLD (hyperlipidemia) Chest pain Home Medications ?Medication ?Instructions ?Recorded ?Last Taken ?Type famotidine 40 mg tablet 40 mg PO DAILY GERD 07/13/18 Unknown History glimepiride 4 mg tablet 4 mg PO DAILY DIABETES 06/23 Unknown History levothyroxine 25 mcg tablet 25 mcg PO DAILY THYROID 03/23/24 History ascorbate calcium (vitamin C) 500 500 mg PO DAILY SUPP LEMENT 03/09/24 03/23/24 History mg tablet gabapentin 300 mg capsule 300 mg PO BID NEUROPATHY 11/21/24 History polysaccharide iron complex 150 mg 150 mg PO DAILY SUP PLEMENT 03/09/24 Unknown History iron capsule (Ferrex) aspirin 81 mg tablet,delayed 81 mg PO BREAKFAST heart #30 tabs 03/23/24 03/23/24 Rx release nitroglycerin 0.4 mg sublingual 0.4 mg sublingual Q5M PRN 03/23/24 03/16/24 Rx tablet Cardiac/Chest Pain #30 tabs amlodipine 5 mg tablet 5 mg PO DAILY 30 days #30 ta bs 04/07/24 Unknown Rx atorvastatin 40 mg tablet 40 mg PO QHS 30 days #30 tab s 04/07/24 11/20/24 Rx carvedilol 6.25 mg tablet 6.25 mg PO BID 30 days #60 t abs 04/07/24 11/21/24 Rx furosemide 40 mg tablet 40 mg PO BIDLX 30 days #60 t abs 04/07/24 11/21/24 Rx tamsulosin 0.4 mg capsule 0.4 mg PO DAILY@1730 30 days #30 04/07/24 11/20/24 Rx caps ranolazine 500 mg tablet,extended 500 mg PO BID #60 ta bs 09/13/24 11/21/24 Rx release,12 hr clopidogrel 75 mg tablet 75 mg PO DAILY 11/21/24 Unkn own History insulin degludec 200 unit/mL (3 40 unit subcut BID 12/09 Unknown History mL) subcutaneous pen (Tresiba FlexTouch U-200 insulin) trazodone 50 mg tablet 25 mg PO QHS 11/21/24 History Allergy/AdvReac Type Severity Reaction Status Date / Time No Known Allergies Allergy Verified 11/21/24 12:30 Family History Brother Diabetes Mother Diabetes Sister Diabetes Father Heart disease Surgical History Stented coronary artery (03/16/24) History of appendectomy Social History household members: none Smoking Status: Former smoker alcohol intake: never substance use type: does not use ROS ROS ED ROS Narrative Constitutional: Denies any fevers, chills, headaches, lightness, dizziness Eyes: Denies changes double or blurry vision Cardiovascular: Chest pain Respiratory: Denies shortness of breath Abdomen: Denies abdominal pain nausea vomit diarrhea : Denies urinary symptoms Neurological: Denies numbness, wheeze, tingling Musculoskeletal: Denies back pain Skin: Denies any rashes or lesions EXAM Physical Exam Narrative Exam Narrative: General: Patient lying in bed rest comfortably do not appear to be in acute distress Head: Atraumatic, normocephalic Eyes: PERRL bilaterally, EOMI blood, no conjunctival injection noted Neck: Soft, supple, trachea midline Cardiovascular: Regular rate and rhythm no murmurs gallops rubs noted Respiratory: Clear to auscultation bilaterally Abdomen: Soft, nondistended, no tenderness to palpation Extremities: +5/5 strength noted in the bilateral upper and lower extremities, radial pulses +2/4 in the bilateral extremities Neurological: Patient following commands that he was at [facility] year [id number] Skin: Warm, dry, tact no rashes or lesions noted Const Vital Signs: 11/21/24 12:30 11/21/24 12:58 11/21/24 13:01 Temperature 97.1 F L Temperature Source Temporal Pulse Rate 80 Respiratory Rate 20 H Respiratory Pattern Normal Blood Pressure 123/58 H Blood Pressure Mean 79 Pulse Ox 92 96 Oxygen Delivery Method Nasal Cannula Nasal Cannula Oxygen Flow Rate (L/min) 2 2 11/21/24 13:28 11/21/24 14:00 Temperature 98.4 F 98.4 F Temperature Source Oral Oral Pulse Rate 69 70 Respiratory Rate 22 H 19 H Respiratory Pattern Blood Pressure 109/61 124/68 H Blood Pressure Mean 77 86 Pulse Ox 99 95 Oxygen Delivery Method Nasal Cannula Nasal Cannula Oxygen Flow Rate (L/min) 2 2 MDM MDM MDM Narrative Medical decision making narrative: Patient is a 84-year-old male who presented to the emergency department chief complaint of abnormal blood work and concern for CO2 level that was low on his chemistries. On the differential diagnose includes but not limited to dehydration, GI bleed, lab rare, UTI. Once workup is obtained reviewed he will be reevaluated. Patient's CBC reviewed showed no evidence leukocytosis white blood count normal at 6.7, hemoglobin is down to 8.7 from 9.8 earlier today, plate count 182, INR normal at 1.1, PT of 14.4. Patient's ABG reviewed showed pH 7.39 with PCO2 of 60.3 is chronic retention. Patient's chemistries are pending. Did do a rectal exam this was sent down for lab testing and is pending. Results will be signed out to oncoming provider to follow-up on these and make ultimate disposition see the note for the details. Lab Data Labs: Laboratory Results - last 24 hr 11/21/24 13:25 WBC 6.7 RBC 2.84 L Hgb 8.7 L Hct 27.2 L MCV 95.8 H MCH 30.6 MCHC 32.0 RDW Std Deviation 46.6 H RDW Coeff of Elmer 13.3 Plt Count 182 MPV 9.6 Immature Gran % (Auto) 0.500 Neut % (Auto) 68.6 Lymph % (Auto) 18.5 L Bonner % (Auto) 8.7 Eos % (Auto) 3.2 Baso % (Auto) 0.5 Absolute Neuts (auto) 4.6 Absolute Lymphs (auto) 1.23 Nucleated RBC % 0 PT 14.4 INR 1.1 APTT 33.9 ABG Data ABG results: ABG 11/21/24 13:35 Specimen Type ART Sample Site L Brach pH 7.39 Bicarbonate Actual 36.7 H Total CO2 39 Base Excess 12 H O2 Saturation 97 O2 % 2.0 ABG pCO2 60.3 H ABG pO2 98 Rhea Test N/A O2 Delivery Device Cannula Vent Mode Not entered Radiography Diagnostic Testing: Clinical Impression(s) from Imaging Studies Chest X-Ray 11/21/24 13:52 IMPRESSION: Stable examination suggestive of bibasilar scarring as described. Reading Location: [place] [address] Discharge Plan Triage Chief Complaint: Abn Labs ED Provider: Trae Madsen Dx/Rx/DC Orders Prescriptions: No Action ascorbate calcium (vitamin C) 500 mg tablet 500 mg PO DAILY polysaccharide iron complex [Ferrex 150] 150 mg iron capsule 150 mg PO DAILY ranolazine 500 mg tablet extended release 12 hr 500 mg PO BID Qty: 60 11RF famotidine 40 MG tablet 40 mg PO DAILY gabapentin 300 mg capsule 300 mg PO BID glimepiride 4 mg Tablet 4 mg PO DAILY levothyroxine 25 mcg Tablet 25 mcg PO DAILY furosemide 40 mg Tablet 40 mg PO BIDLX 30 Days Qty: 60 0RF atorvastatin 40 mg Tablet 40 mg PO QHS 30 Days Qty: 30 0RF carvedilol 6.25 mg Tablet 6.25 mg PO BID 30 Days Qty: 60 0RF amlodipine 5 mg Tablet 5 mg PO DAILY 30 Days Qty: 30 0RF tamsulosin 0.4 mg Capsule 0.4 mg PO DAILY@1730 30 Days Qty: 30 0RF nitroglycerin 0.4 mg Tablet, Sublingual 0.4 mg sublingual Q5M PRN (Reason: Cardiac/Chest Pain) Qty: 30 2RF aspirin 81 mg Tablet,Delayed Release (Dr/Ec) 81 mg PO BREAKFAST Qty: 30 2RF insulin degludec [Tresiba FlexTouch U-200] 200 unit/mL (3 mL) insulin pen 40 unit subcut BID clopidogrel 75 mg tablet 75 mg PO DAILY trazodone 50 mg tablet 25 mg PO QHS Primary Care Provider: Kain Bhakta Chi Referrals: Kain Bhakta Chi, MD [Primary Care Provider] - Print Language: Sierra Leonean What to do if you have Problems For any increased pain, shortness of breath, bleeding, nausea or vomiting, chestpain, or any unexpected problems, contact your Primary Care Provider. Call [facility] ([phone]) or report to the closest Emergency Room. Call 911 if necessary. 11/21/24 1453 <Electronically signed by Trae Madsen DO> Cosigner Signature (if applicable): CC: Dr. Kain Bhakta MD ~ Signed [facility] Work Phone: [phone] Discharge summary [facility] Medical Records Department [address] [place] [address] Emergency Department Summary 11/10/24 MR#: [id number] Acct: [id number] Name: JUNIOR BOONE Rep #:[id number] : 1940 84 From: Donald Francis MD PCP: Dr. Kain Bhakta MD Status:REG E R Location: ED HPI History of Present Illness Chief Complaint: Head Injury Narrative Narrative: 84-year-old male past medical history of chronic respiratory failure on 3 L of oxygen, hypertension, presents via EMS status post fall. He was outside walkingwith his cane in the rain, trying to get into his apartment when he slipped and fell forward. He states he hit his head and was dazed and confused, but denies loss of consciousness. He is also unsure of his last tetanus immunization. It was reported by EMS that he is on a blood thinner, but he cannot recall which one. He denies any neck pain. He sustained an abrasion to his right forehead into his nose, as well as a skin avulsion to his left pinky. He denies any bonypain to his hand, no other injuries. 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 Vitamin D deficiency SOB (shortness of breath) GERD (gastroesophageal reflux disease) Heart failure with preserved ejection fraction Diabetic polyneuropathy Hypothyroidism CKD (chronic kidney disease), stage IV Atherosclerotic cardiovascular disease COPD (chronic obstructive pulmonary disease) Chronic hypoxemic respiratory failure Pneumonia due to COVID-19 virus Hypertension PVCs (premature ventricular contractions) Anemia Obesity (BMI 30.0-34.9) Diabetes mellitus, type II HLD (hyperlipidemia) Chest pain Home Medications ?Medication ?Instructions ?Recorded ?Last Taken ?Type famotidine 40 mg tablet 40 mg PO DAILY GERD 07/13/18 Unknown History glimepiride 4 mg tablet 4 mg PO DAILY DIABETES 06/23 Unknown History levothyroxine 25 mcg tablet 25 mcg PO DAILY THYROID 03/23/24 History ascorbate calcium (vitamin C) 500 500 mg PO DAILY SUPP LEMENT 03/09/24 03/23/24 History mg tablet gabapentin 300 mg capsule 300 mg PO BID NEUROPATHY Unknown History polysaccharide iron complex 150 mg 150 mg PO DAILY SUP PLEMENT 03/09/24 Unknown History iron capsule (Ferrex) aspirin 81 mg tablet,delayed 81 mg PO BREAKFAST heart #30 tabs 03/23/24 03/23/24 Rx release nitroglycerin 0.4 mg sublingual 0.4 mg sublingual Q5M PRN 03/23/24 03/16/24 Rx tablet Cardiac/Chest Pain #30 tabs acetaminophen 500 mg tablet 1,000 mg (2 x 500 mg) PO Q 6H PRN 04/07/24 Unknown Rx PRN Pain Score 1-10 #0 tabs amlodipine 5 mg tablet 5 mg PO DAILY 30 days #30 ta bs 04/07/24 Unknown Rx atorvastatin 40 mg tablet 40 mg PO QHS 30 days #30 tab s 04/07/24 Unknown Rx carvedilol 6.25 mg tablet 6.25 mg PO BID 30 days #60 t abs 04/07/24 Unknown Rx doxepin 10 mg capsule 10 mg PO QHS 30 days #30 cap s 04/07/24 Unknown Rx furosemide 40 mg tablet 40 mg PO BIDLX 30 days #60 t abs 04/07/24 Unknown Rx tamsulosin 0.4 mg capsule 0.4 mg PO DAILY@1730 30 days #30 04/07/24 Unknown Rx caps insulin degludec 100 unit/mL (3 40 unit subcut BID ADINA BETES 09/13/24 Unknown History mL) subcutaneous pen (Tresiba FlexTouch U-100 insulin) ranolazine 500 mg tablet,extended 500 mg PO BID #60 ta bs 09/13/24 Unknown Rx release,12 hr Allergy/AdvReac Type Severity Reaction Status Date / Time No Known Allergies Allergy Verified 11/10/24 18:30 Family History Brother Diabetes Mother Diabetes Sister Diabetes Father Heart disease Surgical History Stented coronary artery (03/16/24) History of appendectomy Social History household members: none Smoking Status: Former smoker alcohol intake: never substance use type: does not use ROS ROS ED ROS Narrative Review of systems positive for abrasion to right forehead, nose, no epistaxis, no neck pain. No loss of consciousness. Skin avulsion to the left fifth digit at PIP, no bony pain. No other injury. EXAM Physical Exam Narrative Exam Narrative: GCS 15. ABCs are intact. Inspection of the face/head reveals abrasions to the right forehead without active bleeding, abrasions to nose. PERRL, EOMI, no entrapment. Airway patent. Neck soft and supple without meningismus. No vertebral point tenderness or bony step-off, full range of motion without pain. Inspection of the left fifth digit does show a skin avulsion of the left PIP knuckle joint. Neurovascular intact distally, no crepitance or bony pain. Palpable radial pulse. Cardiovascular examination regular rate and rhythm. Lungs clear to auscultation bilaterally with decreased breath soundsbilaterally. Abdomen soft and nontender. No guarding or rebound. Neurologicalexamination nonfocal, nonlateralizing. Const Vital Signs: 11/10/24 18:31 11/10/24 18:37 11/10/24 19:15 Temperature 98.3 F Temperature Source Oral Pulse Rate 100 Respiratory Rate 14 Respiratory Effort Normal Non-Labored Respiratory Depth Normal Respiratory Pattern Normal Blood Pressure 143/78 H 194/119 H Blood Pressure Mean 99 140 Pulse Ox 92 Oxygen Delivery Method Nasal Cannula Nasal Cannula Oxygen Flow Rate (L/min) 3 11/10/24 19:20 11/10/24 19:30 11/10/24 19:30 Temperature Temperature Source Pulse Rate 72 74 76 Respiratory Rate 18 16 18 Respiratory Effort Respiratory Depth Respiratory Pattern Blood Pressure 151/85 H 214/137 H Blood Pressure Mean 107 161 Pulse Ox 99 100 100 Oxygen Delivery Method Nasal Cannula Oxygen Flow Rate (L/min) 11/10/24 19:45 11/10/24 19:51 11/10/24 20:00 Temperature Temperature Source Pulse Rate 75 79 73 Respiratory Rate 19 H 19 H 18 Respiratory Effort Respiratory Depth Respiratory Pattern Blood Pressure 191/137 H 151/85 H Blood Pressure Mean 153 101 Pulse Ox 97 100 100 Oxygen Delivery Method Oxygen Flow Rate (L/min) 11/10/24 20:15 11/10/24 20:46 11/10/24 21:00 Temperature Temperature Source Pulse Rate 71 77 70 Respiratory Rate 21 H 15 18 Respiratory Effort Respiratory Depth Respiratory Pattern Blood Pressure Blood Pressure Mean Pulse Ox 99 100 100 Oxygen Delivery Method Oxygen Flow Rate (L/min) 11/10/24 21:34 Temperature Temperature Source Pulse Rate Respiratory Rate Respiratory Effort Respiratory Depth Respiratory Pattern Blood Pressure 152/65 H Blood Pressure Mean 94 Pulse Ox Oxygen Delivery Method Oxygen Flow Rate (L/min) MDM MDM MDM Narrative Medical decision making narrative: Differential diagnosis includes but not limited to as he is a head injury on anticoagulants, intracranial hemorrhage versus skull fracture versus nasal fracture versus nasal contusion. I discussed x-ray of the left hand where he has a skin avulsion, but he declines, stating he is not having any pain. I reviewed his prior records and he does not have a current tetanus immunization. He was told by RN that he refused tetanus immunization. I reviewed the radiology report of the CT of the brain which shows generalized brain atrophy and small ischemic degenerative changes but no evidence of an acute intracranialhemorrhage. CT of the cervical spine shows degenerative changes but noacute fracture. CT of the facial bones shows no acute fracture but there is a right forehead hematoma. I was also informed by the RN that the patient is having bilateral hip pain. Itdoes not hurt when he moves his legs. I have low suspicion for fracture, but x-rays will be obtained and interpreted by myself independently. He requested something stronger than Tylenol for pain so he was given 1 [place] tablet as he usually does not take pain medications. Patient will be ambulated after negative x-ray of the hips. I did interpret thex-rays of the bilateral hips and pelvis independently and see no evidence of acute fracture. There are degenerative joint changes. I reviewed the radiologyreport which confirms my independent interpretation. Patient was ambulated in the emergency department with his cane and did well. He is motivated for discharge. At this point in time, I feel he can be discharged to follow-up with his primary care provider. He was given close headinjury instructions. He can take Tylenol as needed for analgesia. Return instructions reviewed. Disposition is discharged home in stable condition. History & Record Review Discussion w/independent historian: Patient Additional record(s) reviewed:: Prior ED visit Radiography X-Ray: Right Hip, Left Hip, Read by ED Physician, Read by Radiologist, No Fracture and DJD Diagnostic Testing: Clinical Impression(s) from Imaging Studies Brain CT 11/10/24 19:03 IMPRESSION: 1. Generalized brain atrophy. 2. Small vessel ischemic/degenerative changes. 3. No acute intracranial hemorrhage, midline shift or mass effect. If symptoms persist, further evaluation with MRI is recommended. Reading Location: [facility] Cervical Spine CT 11/10/24 19:03 IMPRESSION: 1. No acute fracture. 2. Degenerative changes of the cervical spine as described. Reading Location: [facility] Facial/Sinus 11/10/24 19:03 IMPRESSION: 1. No acute fracture. 2. Small right frontal scalp hematoma. Reading Location: [facility] Hip/Pelvis X-Ray 11/10/24 20:36 IMPRESSION: 1. Mild degenerative changes of the hip joints, bilaterally. 2. Degenerative changes as above. Reading Location: [facility] Discharge Plan Triage Chief Complaint: Head Injury ED Provider: Donald Francis Dx/Rx/DC Orders Clinical Impression: Fall, Abrasion of face and extremities, Bilateral hip pain, Abrasion of nose, Traumatic hematoma offorehead, Closed head injury, Avulsion of skin of finger Instructions: ED Abrasion, ED Facial Contusion, ED Head Injury (Adult), ED Hematoma Prescriptions: No Action ascorbate calcium (vitamin C) 500 mg tablet 500 mg PO DAILY polysaccharide iron complex [Ferrex 150] 150 mg iron capsule 150 mg PO DAILY insulin degludec [Tresiba FlexTouch U-100] 100 unit/mL (3 mL) insulin pen 40 unit subcut BID ranolazine 500 mg tablet extended release 12 hr 500 mg PO BID Qty: 60 11RF famotidine 40 MG tablet 40 mg PO DAILY gabapentin 300 mg capsule 300 mg PO BID glimepiride 4 mg Tablet 4 mg PO DAILY levothyroxine 25 mcg Tablet 25 mcg PO DAILY furosemide 40 mg Tablet 40 mg PO BIDLX 30 Days Qty: 60 0RF atorvastatin 40 mg Tablet 40 mg PO QHS 30 Days Qty: 30 0RF carvedilol 6.25 mg Tablet 6.25 mg PO BID 30 Days Qty: 60 0RF amlodipine 5 mg Tablet 5 mg PO DAILY 30 Days Qty: 30 0RF doxepin 10 mg Capsule 10 mg PO QHS 30 Days Qty: 30 0RF acetaminophen 500 mg Tablet 1,000 mg PO Q6H PRN PRN (Reason: Pain Score 1-10) Qty: 0 0RF tamsulosin 0.4 mg Capsule 0.4 mg PO DAILY@1730 30 Days Qty: 30 0RF nitroglycerin 0.4 mg Tablet, Sublingual 0.4 mg sublingual Q5M PRN (Reason: Cardiac/Chest Pain) Qty: 30 2RF aspirin 81 mg Tablet,Delayed Release (Dr/Ec) 81 mg PO BREAKFAST Qty: 30 2RF Primary Care Provider: Kain Bhakta Chi Referrals: Kain Bhakta Chi, MD [Primary Care Provider] - 3-5 Days if not improving Activity Restrictions/Additional Instructions: Tylenol as directed for pain. Follow-up with your primary care provider in 3 to5 days as needed. Return with new or worsening symptoms. Print Language: [place]an Disposition Disposition: Home, Self Care What to do if you have Problems For any increased pain, shortness of breath, bleeding, nausea or vomiting, chestpain, or any unexpected problems, contact your Primary Care Provider. Call [facility] ([phone]) or report tothe closest Emergency Room. Call 911 if necessary. 11/10/242152 Cosigner Signature (if applicable): CC: Dr. Kain Bhakta MD ~ Signed [facility]06-26-2025 Radiology Diagnostic study note [facility] Imaging Services [address], [place] [id number] Hips B/L min 2 views w/ Pelvis MR#: [id number] Acct: [id number] Name: JUNIOR BOONE Rep #: [id number] : 1940 M 84 From: Tanna Drew MD PCP: Dr. Kain Bhakta MD Status: REG E R Study:Hips B/L min 2 views w/ Pelvis Date of Exam: 11/10/24 Exam# [id number] Ordering Dr: Donald Francis MD EXAM: XR Bilateral Hips With Pelvis When Performed, 2 or 3 Views CLINICAL INDICATION: TRAUMA TECHNIQUE: Three or four views of the bilateral hips with pelvis when performed. COMPARISON: No relevant prior studies available. FINDINGS: BONES/JOINTS: Mild degenerative changes of the hip joints, bilaterally. No acute fracture. No dislocation. SOFT TISSUES: Unremarkable. RAD/Hips B/L min 2 views w/ Pelvis IMPRESSION: 1. Mild degenerative changes of the hip joints, bilaterally. 2. Degenerative changes as above. Reading Location: [facility] CC: Dr. Donald Francis MD; Dr. Kain Bhakta MD ~ Vegetable Buncher: Signed [facility]06-26-2025 Radiology Diagnostic study note [facility] Imaging Services [address] [place] [id number] Spine Cervical without Contras MR#: [id number] Acct: [id number] Name: JUNIOR BOONE Rep #: [id number] : 1940 84 From: Tanna Drew MD PCP: Dr. Kain Bhakta MD Status: REG E R Study:Spine Cervical without Contras Date of Exam: 11/10/24 Exam# [id number] Ordering Dr: Donald Francis MD EXAM: CT Cervical Spine Without Intravenous Contrast CLINICAL INDICATION: TRAUMA TECHNIQUE: Axial computed tomography images of the cervical spine without intravenous contrast. This CT exam was performed using one or more of the following dose reduction techniques: automated exposure control, adjustment of the mA and/or kV according to patient size, and/or use of iterative reconstruction technique. COMPARISON: No relevant prior studies available. FINDINGS: VERTEBRAE: Moderate reversal cervical spine lordosis. Degenerative facet arthropathy throughout thecervical spine. No acute fracture. DISCS/SPINAL CANAL/NEURAL FORAMINA: Degenerative disc disease throughout the cervical spine. SOFT TISSUES: Unremarkable. CT/Spine Cervical without Contras IMPRESSION: 1. No acute fracture. 2. Degenerative changes of the cervical spine as described. Reading Location: [facility] CC: Dr. Donald Francis MD; Dr. Kain Bhakta MD ~ Vegetable Buncher: Signed [facility]06-26-2025 Radiology Diagnostic study note [facility] Imaging Services [address] [place], [place] [id number] Sinus/Facial Bone MR#: [id number] Acct: [id number] Name: JUNIOR BOONE Rep #: [id number] : 1940 M 84 From: Tanna Drew MD PCP: Dr. Kain Bhakta MD Status: REG E R Study:Sinus/Facial Bone Date of Exam: Exam# [id number] Ordering Dr: Donald Francis MD EXAM: CT Maxillofacial Without Intravenous Contrast CLINICAL INDICATION: TRAUMA TECHNIQUE: Axial computed tomography images of the face without intravenous contrast. This CT exam was performed using one or more of the following dose reduction techniques: automated exposure control, adjustment of the mA and/or kV according to patient size, and/or use of iterative reconstruction technique. COMPARISON: No relevant prior studies available. FINDINGS: BONES/JOINTS: No acute fracture. SOFT TISSUES: Small right frontal scalp hematoma. ORBITS: Unremarkable. SINUSES: Unremarkable. No air-fluid levels. CT/Sinus/Facial Bone IMPRESSION: 1. No acute fracture. 2. Small right frontal scalp hematoma. Reading Location: [facility] CC: Dr. Donald Francis MD; Dr. Kain Bhakta MD ~ Vegetable Buncher: Signed [facility]06-26-2025 Radiology Diagnostic study note [facility] Imaging Services [address] [place], [place] [address] Brain/Head without Contrast MR#: [id number] Acct: [id number] Name: JUNIOR BOONE Rep #: [id number] : 1940 M 84 From: Tanna Drew MD PCP: Dr. Kain Bhakta MD Status: REG E R Study:Brain/Head without Contrast Date of Exa m: 11/10/24 Exam# [id number] Ordering Dr: Donald Francis MD EXAM: CT Head Without Intravenous Contrast CLINICAL INDICATION: TRAUMA TECHNIQUE: Axial computed tomography images of the head/brain without intravenous contrast. This CTexam was performed using one or more of the following dose reduction techniques: automated exposure control, adjustment of the mA and/or kV according to patient size, and/or use of iterative reconstruction technique. COMPARISON: No relevant prior studies available. FINDINGS: BRAIN AND EXTRA-AXIAL SPACES: The cerebral and cerebellar sulci are prominent consistent with brainatrophy. Areas of decreased attenuation in the deep cerebral white matter are consistent with small vessel ischemic/degenerative changes. No acute intracranial hemorrhage, midline shift or mass effect. If symptoms persist, further evaluation withMRI is recommended. BONES/JOINTS: Unremarkable. No acute fracture. SOFT TISSUES: Unremarkable. SINUSES: Unremarkable as visualized. No acute sinusitis. MASTOID AIR CELLS: Unremarkable as visualized. No mastoid effusion. CT/Brain/Head without Contrast IMPRESSION: 1. Generalized brain atrophy. 2. Small vessel ischemic/degenerative changes. 3. No acute intracranial hemorrhage, midline shift or mass effect. If symptoms persist, further evaluation with MRI is recommended. Reading Location: [facility] CC: Dr. Donald Francis MD; Dr. Kain Bhakta MD ~ Vegetable Buncher: Signed [facility]06-26-2025 Discharge summary Author Donald Francis [facility] Note Date/Time November 10, 2024 9:53 pm [facility] Medical Records Department [address] [place] [address] Emergency Department Summary 11/10/24 MR#: [id number] Acct: [id number] Name: JUNIOR BOONE Rep #:[id number] : 1940 84 From: Donald Francis MD PCP: Dr. Kain Bhakta MD Status:REG E R Location: ED HPI History of Present Illness Chief Complaint: Head Injury Narrative Narrative: 84-year-old male past medical history of chronic respiratory failure on 3 L of oxygen, hypertension, presents via EMS status post fall. He was outside walkingwith his cane in the rain, trying to get into his apartment when he slipped and fell forward. He states he hit his head and was dazed and confused, but denies loss of consciousness. He is also unsure of his last tetanus immunization. It was reported by EMS that he is on a blood thinner, but he cannot recall which one. He denies any neck pain. He sustained an abrasion to his right forehead into his nose, as well as a skin avulsion to his left pinky. He denies any bonypain to his hand, no other injuries. 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 Vitamin D deficiency SOB (shortness of breath) GERD (gastroesophageal reflux disease) Heart failure with preserved ejection fraction Diabetic polyneuropathy Hypothyroidism CKD (chronic kidney disease), stage IV Atherosclerotic cardiovascular disease COPD (chronic obstructive pulmonary disease) Chronic hypoxemic respiratory failure Pneumonia due to COVID-19 virus Hypertension PVCs (premature ventricular contractions) Anemia Obesity (BMI 30.0-34.9) Diabetes mellitus, type II HLD (hyperlipidemia) Chest pain Home Medications ?Medication ?Instructions ?Recorded ?Last Taken ?Type famotidine 40 mg tablet 40 mg PO DAILY GERD 07/13/18 Unknown History glimepiride 4 mg tablet 4 mg PO DAILY DIABETES 06/23 Unknown History levothyroxine 25 mcg tablet 25 mcg PO DAILY THYROID 03/23/24 History ascorbate calcium (vitamin C) 500 500 mg PO DAILY SUPP LEMENT 03/09/24 03/23/24 History mg tablet gabapentin 300 mg capsule 300 mg PO BID NEUROPATHY Unknown History polysaccharide iron complex 150 mg 150 mg PO DAILY SUP PLEMENT 03/09/24 Unknown History iron capsule (Ferrex) aspirin 81 mg tablet,delayed 81 mg PO BREAKFAST heart #30 tabs 03/23/24 03/23/24 Rx release nitroglycerin 0.4 mg sublingual 0.4 mg sublingual Q5M PRN 03/23/24 03/16/24 Rx tablet Cardiac/Chest Pain #30 tabs acetaminophen 500 mg tablet 1,000 mg (2 x 500 mg) PO Q 6H PRN 04/07/24 Unknown Rx PRN Pain Score 1-10 #0 tabs amlodipine 5 mg tablet 5 mg PO DAILY 30 days #30 ta bs 04/07/24 Unknown Rx atorvastatin 40 mg tablet 40 mg PO QHS 30 days #30 tab s 04/07/24 Unknown Rx carvedilol 6.25 mg tablet 6.25 mg PO BID 30 days #60 t abs 04/07/24 Unknown Rx doxepin 10 mg capsule 10 mg PO QHS 30 days #30 cap s 04/07/24 Unknown Rx furosemide 40 mg tablet 40 mg PO BIDLX 30 days #60 t abs 04/07/24 Unknown Rx tamsulosin 0.4 mg capsule 0.4 mg PO DAILY@1730 30 days #30 04/07/24 Unknown Rx caps insulin degludec 100 unit/mL (3 40 unit subcut BID ADINA BETES 09/13/24 Unknown History mL) subcutaneous pen (Tresiba FlexTouch U-100 insulin) ranolazine 500 mg tablet,extended 500 mg PO BID #60 ta bs 09/13/24 Unknown Rx release,12 hr Allergy/AdvReac Type Severity Reaction Status Date / Time No Known Allergies Allergy Verified 11/10/24 18:30 Family History Brother Diabetes Mother Diabetes Sister Diabetes Father Heart disease Surgical History Stented coronary artery (03/16/24) History of appendectomy Social History household members: none Smoking Status: Former smoker alcohol intake: never substance use type: does not use ROS ROS ED ROS Narrative Review of systems positive for abrasion to right forehead, nose, no epistaxis, no neck pain. No loss of consciousness. Skin avulsion to the left fifth digit at PIP, no bony pain. No other injury. EXAM Physical Exam Narrative Exam Narrative: GCS 15. ABCs are intact. Inspection of the face/head reveals abrasions to the right forehead without active bleeding, abrasions to nose. PERRL, EOMI, no entrapment. Airway patent. Neck soft and supple without meningismus. No vertebral point tenderness or bony step-off, full range of motion without pain. Inspection of the left fifth digit does show a skin avulsion of the left PIP knuckle joint. Neurovascular intact distally, no crepitance or bony pain. Palpable radial pulse. Cardiovascular examination regular rate and rhythm. Lungs clear to auscultation bilaterally with decreased breath sounds bilaterally. Abdomen soft and nontender. No guarding or rebound. Neurologicalexamination nonfocal, nonlateralizing. Const Vital Signs: 11/10/24 18:31 11/10/24 18:37 11/10/24 19:15 Temperature 98.3 F Temperature Source Oral Pulse Rate 100 Respiratory Rate 14 Respiratory Effort Normal Non-Labored Respiratory Depth Normal Respiratory Pattern Normal Blood Pressure 143/78 H 194/119 H Blood Pressure Mean 99 140 Pulse Ox 92 Oxygen Delivery Method Nasal Cannula Nasal Cannula Oxygen Flow Rate (L/min) 3 11/10/24 19:20 11/10/24 19:30 11/10/24 19:30 Temperature Temperature Source Pulse Rate 72 74 76 Respiratory Rate 18 16 18 Respiratory Effort Respiratory Depth Respiratory Pattern Blood Pressure 151/85 H 214/137 H Blood Pressure Mean 107 161 Pulse Ox 99 100 100 Oxygen Delivery Method Nasal Cannula Oxygen Flow Rate (L/min) 11/10/24 19:45 11/10/24 19:51 11/10/24 20:00 Temperature Temperature Source Pulse Rate 75 79 73 Respiratory Rate 19 H 19 H 18 Respiratory Effort Respiratory Depth Respiratory Pattern Blood Pressure 191/137 H 151/85 H Blood Pressure Mean 153 101 Pulse Ox 97 100 100 Oxygen Delivery Method Oxygen Flow Rate (L/min) 11/10/24 20:15 11/10/24 20:46 11/10/24 21:00 Temperature Temperature Source Pulse Rate 71 77 70 Respiratory Rate 21 H 15 18 Respiratory Effort Respiratory Depth Respiratory Pattern Blood Pressure Blood Pressure Mean Pulse Ox 99 100 100 Oxygen Delivery Method Oxygen Flow Rate (L/min) 11/10/24 21:34 Temperature Temperature Source Pulse Rate Respiratory Rate Respiratory Effort Respiratory Depth Respiratory Pattern Blood Pressure 152/65 H Blood Pressure Mean 94 Pulse Ox Oxygen Delivery Method Oxygen Flow Rate (L/min) MDM MDM MDM Narrative Medical decision making narrative: Differential diagnosis includes but not limited to as he is a head injury on anticoagulants, intracranial hemorrhage versus skull fracture versus nasal fracture versus nasal contusion. I discussed x-ray of the left hand where he has a skin avulsion, but he declines, stating he is not having any pain. I reviewed his prior records and he does not have a current tetanus immunization. He was told by RN that he refused tetanus immunization. I reviewed the radiology report of the CT of the brain which shows generalized brain atrophy and small ischemic degenerative changes but no evidence of an acute intracranialhemorrhage. CT of the cervical spine shows degenerative changes but no acute fracture. CT of the facial bones shows no acute fracture but there is a right forehead hematoma. I was also informed by the RN that the patient is having bilateral hip pain. Itdoes not hurt when he moves his legs. I have low suspicion for fracture, but x-rays will be obtained and interpreted by myself independently. He requested something stronger than Tylenol for pain so he was given 1 [place] tablet as he usually does not take pain medications. Patient will be ambulated after negative x-ray of the hips. I did interpret thex-rays of the bilateral hips and pelvis independently and see no evidence of acute fracture. There are degenerative joint changes. I reviewed the radiologyreport which confirms my independent interpretation. Patient was ambulated in the emergency department with his cane and did well. He is motivated for discharge. At this point in time, I feel he can be discharged to follow-up with his primary care provider. He was given close headinjury instructions. He can take Tylenol as needed for analgesia. Return instructions reviewed. Disposition is discharged home in stable condition. History & Record Review Discussion w/independent historian: Patient Additional record(s) reviewed:: Prior ED visit Radiography X-Ray: Right Hip, Left Hip, Read by ED Physician, Read by Radiologist, No Fracture and DJD Diagnostic Testing: Clinical Impression(s) from Imaging Studies Brain CT 11/10/24 19:03 IMPRESSION: 1. Generalized brain atrophy. 2. Small vessel ischemic/degenerative changes. 3. No acute intracranial hemorrhage, midline shift or mass effect. If symptoms persist, further evaluation with MRI is recommended. Reading Location: [facility] Cervical Spine CT 11/10/24 19:03 IMPRESSION: 1. No acute fracture. 2. Degenerative changes of the cervical spine as described. Reading Location: [facility] Facial/Sinus 11/10/24 19:03 IMPRESSION: 1. No acute fracture. 2. Small right frontal scalp hematoma. Reading Location: [facility] Hip/Pelvis X-Ray 11/10/24 20:36 IMPRESSION: 1. Mild degenerative changes of the hip joints, bilaterally. 2. Degenerative changes as above. Reading Location: [facility] Discharge Plan Triage Chief Complaint: Head Injury ED Provider: Donald Francis Dx/Rx/DC Orders Clinical Impression: Fall, Abrasion of face and extremities, Bilateral hip pain, Abrasion of nose, Traumatic hematoma of forehead, Closed head injury, Avulsion of skin of finger Instructions: ED Abrasion, ED Facial Contusion, ED Head Injury (Adult), ED Hematoma Prescriptions: No Action ascorbate calcium (vitamin C) 500 mg tablet 500 mg PO DAILY polysaccharide iron complex [Ferrex 150] 150 mg iron capsule 150 mg PO DAILY insulin degludec [Tresiba FlexTouch U-100] 100 unit/mL (3 mL) insulin pen 40 unit subcut BID ranolazine 500 mg tablet extended release 12 hr 500 mg PO BID Qty: 60 11RF famotidine 40 MG tablet 40 mg PO DAILY gabapentin 300 mg capsule 300 mg PO BID glimepiride 4 mg Tablet 4 mg PO DAILY levothyroxine 25 mcg Tablet 25 mcg PO DAILY furosemide 40 mg Tablet 40 mg PO BIDLX 30 Days Qty: 60 0RF atorvastatin 40 mg Tablet 40 mg PO QHS 30 Days Qty: 30 0RF carvedilol 6.25 mg Tablet 6.25 mg PO BID 30 Days Qty: 60 0RF amlodipine 5 mg Tablet 5 mg PO DAILY 30 Days Qty: 30 0RF doxepin 10 mg Capsule 10 mg PO QHS 30 Days Qty: 30 0RF acetaminophen 500 mg Tablet 1,000 mg PO Q6H PRN PRN (Reason: Pain Score 1-10) Qty: 0 0RF tamsulosin 0.4 mg Capsule 0.4 mg PO DAILY@1730 30 Days Qty: 30 0RF nitroglycerin 0.4 mg Tablet, Sublingual 0.4 mg sublingual Q5M PRN (Reason: Cardiac/Chest Pain) Qty: 30 2RF aspirin 81 mg Tablet,Delayed Release (Dr/Ec) 81 mg PO BREAKFAST Qty: 30 2RF Primary Care Provider: Kain Bhakta Chi Referrals: Kain Bhakta Chi, MD [Primary Care Provider] - 3-5 Days if not improving Activity Restrictions/Additional Instructions: Tylenol as directed for pain. Follow-up with your primary care provider in 3 to5 days as needed. Return with new or worsening symptoms. Print Language: [place]an Disposition Disposition: Home, Self Care What to do if you have Problems For any increased pain, shortness of breath, bleeding, nausea or vomiting, chestpain, or any unexpected problems, contact your Primary Care Provider. Call [facility] ([phone]) or report to the closest Emergency Room. Call 911 if necessary. 11/10/242152 <Electronically signed by Donald Francis MD> Cosigner Signature (if applicable): CC: Dr. Kain Bhakta MD ~ Signed [facility] Work Phone: 1(761) 515-571606-26-2025 Hospital Discharge instructions Additional Instructions Tylenol as directed for pain. Follow-up with your primary care provider in 3 to 5 days as needed. Return with new or worsening symptoms.[facility] Work Phone: 1(996) 473-220304-29-2025 Evaluation note* Diagnosis Onset Date Resolution Status Admit Date Essential (primary) hypertension acute September 13, 2024 9:42am Right carotid bruit acute September 13, 2024 9:42am Anemia chronic September 13 9:42am HLD (hyperlipidemia) chronic Apri l 2024 9:42am Stented coronary artery March 16, 2024 reso lved September 13, 2024 9:42am [facility] Work Phone: 1([phone]) 406-415404-29-2025 Evaluation note* Diagnosis Onset Date Resolution Status Admit Date Essential (primary) hypertension acute September 13, 2024 9:42am Right carotid bruit acute September 13, 2024 9:42am Anemia chronic September 13 9:42am HLD (hyperlipidemia) chronic Apri l 2024 9:42am Stented coronary artery March 16, 2024 reso lved September 13, 2024 9:42am Edema acute November 30 9:20am Essential (primary) hypertension acute November 30, 2024 9:20am Right carotid bruit acute November 30, 2024 9:20am Anemia chronic November 30 9:20am HLD (hyperlipidemia) chronic November 30, 2024 9:20am Stented coronary artery March 16, 2024 reso lved November 30, 2024 9:20am [facility] Work Phone: 1([phone] 336-274404-29-2025 Evaluation note* Diagnosis Onset Date Resolution Status Admit Date Essential (primary) hypertension acute September 13, 2024 9:42am Right carotid bruit acute September 13, 2024 9:42am Anemia chronic September 13 9:42am HLD (hyperlipidemia) chronic Apri l 2024 9:42am Stented coronary artery March 16, 2024 reso lved September 13, 2024 9:42am Edema acute November 30 9:20am Essential (primary) hypertension acute November 30, 2024 9:20am Right carotid bruit acute November 30, 2024 9:20am Anemia chronic November 30 9:20am HLD (hyperlipidemia) chronic November 30, 2024 9:20am Stented coronary artery March 16, 2024 reso lved November 30, 2024 9:20am Encephalopathy acute acute December 02, 2024 1:18pm [facility] Work Phone: [phone] Evaluation note* Diagnosis Onset Date Resolution Status Admit Date Essential (primary) hypertension acute September 13, 2024 9:42am Right carotid bruit acute September 13, 2024 9:42am Anemia chronic September 13 9:42am HLD (hyperlipidemia) chronic Apri l 2024 9:42am Stented coronary artery March 16, 2024 reso lved September 13, 2024 9:42am Edema acute November 30 9:20am Essential (primary) hypertension acute November 30, 2024 9:20am Right carotid bruit acute November 30, 2024 9:20am Anemia chronic November 30 9:20am HLD (hyperlipidemia) chronic November 30, 2024 9:20am Stented coronary artery March 16, 2024 reso lved November 30, 2024 9:20am Encephalopathy acute resolved December 02, 2024 1:18pm BPH (benign prostatic hyperplasia) acute December 05, 2024 6:20pm Chronic heart failure with preserved ejection fraction (HFpEF) acute December 05, 2024 6:20pm Coronary artery disease acute J 2024 6:20pm Debility acute December 05 6:20pm Diabetic polyneuropathy acute 2024 6:20pm Encephalopathy acute December 05, 2024 6:20pm Hypoglycemia acute December 05, 025 6:20pm Hypothyroidism acute December 05, 2024 6:20pm Morbid obesity acute December 05, 2024 6:20pm Type 2 diabetes mellitus with hyperglycemia acute December 05 6:20pm Chronic hypoxemic respiratory failure chronic December 05 025 6:20pm CKD (chronic kidney disease), stage IV chronic December 05 6:20pm COPD (chronic obstructive pulmonary disease) chronic December 05 6:20pm HLD (hyperlipidemia) chronic December 05, 2024 6:20pm [facility] Work Phone: 1(956) 758-503511-21-2024 [facility]11-06-2024 [facility]11-06-2024 [facility]17-[facility]23 [facility] Note Date/Time December 02, 2024 1:31 pm [facility] Medical Records Department [address] [place] [address] Emergency Department Summary 12/02/24 MR#: [id number] Acct: [id number] Name: JUNIOR BOONE Rep #:[id number] : 1940 84 From: Tsering San PCP: Dr. Kain Bhakta MD Status:REG E R Location: ED HPI History of Present Illness Chief Complaint: Confusion Informant: patient Narrative Narrative: Patient is an 84-year-old male with history of CKD stage IV, COPD, chronic respiratory failure on 2 to 3 L of oxygen at baseline, hyperlipidemia, diabetes mellitus, hypertension and hypothyroidism presenting for episode of confusion. Patient was home alone. Reportedly had an episode of confusions where he did not recognize his neighbors. He had a hard time parent how to eat yogurt. EMS was called. His blood sugar was 74 and was given glucose per EMS and blood sugar went up to 89. His mentation and confusion improved. He states he is otherwise been in his normal state of health. Recalls being confused but nothing else. Denies associated chest pain, shortness of breath or vision changes. Does remember feeling dizzy this morning. Currently feels back to hisnormal state of health. Denies any recent urinary symptoms. States he has beenconstipated for the past 2 to 3 days. States over the past year he has had someincreased constipation. Denies associate abdominal pain. Did have a fall 1 week ago (was seen in the ER on 11/10/2024 for mechanical fall where he had a CT of the brain, face and cervical spine which were negative for any acute process). 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 Vitamin D deficiency GERD (gastroesophageal reflux disease) Heart failure with preserved ejection fraction Diabetic polyneuropathy Hypothyroidism CKD (chronic kidney disease), stage IV Atherosclerotic cardiovascular disease COPD (chronic obstructive pulmonary disease) Chronic hypoxemic respiratory failure Pneumonia due to COVID-19 virus Hypertension PVCs (premature ventricular contractions) Anemia Obesity (BMI 30.0-34.9) Diabetes mellitus, type II HLD (hyperlipidemia) Home Medications ?Medication ?Instructions ?Recorded ?Last Taken ?Type famotidine 40 mg tablet 40 mg PO DAILY GERD 07/13/18 Unknown History glimepiride 4 mg tablet 4 mg PO DAILY DIABETES 06/23 Unknown History levothyroxine 25 mcg tablet 25 mcg PO DAILY THYROID 03/23/24 History ascorbate calcium (vitamin C) 500 500 mg PO DAILY SUPP LEMENT 03/09/24 03/23/24 History mg tablet gabapentin 300 mg capsule 300 mg PO BID NEUROPATHY 11/21/24 History polysaccharide iron complex 150 mg 150 mg PO DAILY SUP PLEMENT 03/09/24 Unknown History iron capsule (Ferrex) aspirin 81 mg tablet,delayed 81 mg PO BREAKFAST heart #30 tabs 03/23/24 03/23/24 Rx release nitroglycerin 0.4 mg sublingual 0.4 mg sublingual Q5M PRN 03/23/24 03/16/24 Rx tablet Cardiac/Chest Pain #30 tabs amlodipine 5 mg tablet 5 mg PO DAILY 30 days #30 ta bs 04/07/24 Unknown Rx atorvastatin 40 mg tablet 40 mg PO QHS 30 days #30 tab s 04/07/24 11/20/24 Rx carvedilol 6.25 mg tablet 6.25 mg PO BID 30 days #60 t abs 04/07/24 11/21/24 Rx furosemide 40 mg tablet 40 mg PO BIDLX 30 days #60 t abs 04/07/24 11/21/24 Rx tamsulosin 0.4 mg capsule 0.4 mg PO DAILY@1730 30 days #30 04/07/24 11/20/24 Rx caps ranolazine 500 mg tablet,extended 500 mg PO BID #60 ta bs 09/13/24 11/21/24 Rx release,12 hr clopidogrel 75 mg tablet 75 mg PO DAILY 11/21/24 Unkn own History insulin degludec 200 unit/mL (3 40 unit subcut BID 12/09 Unknown History mL) subcutaneous pen (Tresiba FlexTouch U-200 insulin) trazodone 50 mg tablet 25 mg PO QHS 11/21/24 History Allergy/AdvReac Type Severity Reaction Status Date / Time No Known Allergies Allergy Verified 12/02/24 10:16 Family History Brother Diabetes Mother Diabetes Sister Diabetes Father Heart disease Surgical History Stented coronary artery (03/16/24) History of appendectomy Social History household members: none Smoking Status: Former smoker alcohol intake: never substance use type: does not use ROS ROS ED Constitutional Constitutional ED: Denies chills or fever(s) Eyes Eyes: Denies change in vision ENT ENT ED: Denies rhinorrhea or sore throat Cardiovascular Cardiovascular: Denies chest pain or palpitations Respiratory/Chest Respiratory/Chest: Denies cough or dyspnea Gastrointestinal Gastrointestinal: Reports constipation; Denies abdominal pain, nausea or vomiting Genitourinary Genitourinary ED: Denies dysuria or urinary frequency Musculoskeletal Musculoskeletal: Denies arthralgias or myalgias Integumentary Reports Abrasions and other Details: On knees associated with fall couple weeks ago Neurologic Neurologic: Reports other Details: Episode of confusion ; Denies headache(s), paresthesias or weakness Hematologic/Lymphatic Hematologic/Lymphatic: Denies easy bleeding or easy bruising EXAM Physical Exam Const Vital Signs: 12/02/24 10:16 12/02/24 10:19 12/02/24 11:28 Temperature 98.0 F 98.0 F Temperature Source Oral Oral Pulse Rate 73 68 69 Respiratory Rate 18 18 18 Blood Pressure 136/55 H 136/55 H 159/96 H Blood Pressure Mean 82 82 117 Pulse Ox 100 100 98 Oxygen Delivery Method Nasal Cannula Room Air Oxygen Flow Rate (L/min) 3 12/02/24 11:29 12/02/24 12:00 12/02/24 13:00 Temperature 98.0 F 98 F 98.1 F Temperature Source Oral Oral Oral Pulse Rate 69 70 71 Respiratory Rate 18 18 18 Blood Pressure 159/96 H 160/87 H 162/82 H Blood Pressure Mean 117 111 108 Pulse Ox 98 97 100 Oxygen Delivery Method Nasal Cannula Nasal Cannula Nasal Cannula Oxygen Flow Rate (L/min) 3 12/02/24 13:09 Temperature 98.1 F Temperature Source Pulse Rate 71 Respiratory Rate 18 Blood Pressure 162/82 H Blood Pressure Mean 108 Pulse Ox 100 Oxygen Delivery Method Oxygen Flow Rate (L/min) General Appearance ED: pallor HEENT Reports moist mucous membranes Eyes PERRL and EOMs intact bilaterally Neck supple and no JVD Chest Wall inspection of chest normal and palpation of chest normal Resp normal respiratory effort and clear to auscultation bilaterally Cardio regular rate, regular rhythm and no murmurs GI non-tender and non-distended Auscultation: hypoactive bowel sounds Palpation: soft; Negative for tender or guarding Extremity Extremity Narrative: No obvious deformity. Pretibial pitting edema present?trace Neuro oriented x3, CN's II-XII intact bilaterally and no sensory deficits noted Neuro Narrative: Patient recalls being confused and is acting completely appropriate at this time Sensorium / Orientation: alert Sensory Exam: No sensory level loss detected Motor Exam: strength 5/5 throughout; Negative for general weakness Psych mental status grossly normal Skin no wounds Skin Narrative: Healing abrasions to the bilateral knees, no acute abrasions. General Skin Exam: pallor; Negative for jaundice MDM MDM MDM Narrative Medical decision making narrative: Patient valuated for episode of confusion this morning that improved with receiving oral glucose. Differential includes transient hypoglycemia, infection, symptomatic anemia, subdural hemorrhage with delayed bleed (given fall couple weeks ago), pneumonia or other underlying infectious etiology, KALYN, and arrhythmia. Workup shows blood glucose of 74 (repeated 2 hours later and is 78). He is ambulated and generally weak. Lab work otherwise largely stable. His hemoglobin is low at 9.8 which appears to be at his baseline and actually improved from 11 days ago. CMP shows chronic kidney disease but otherwise normal/at his baseline. EKG does not show any ischemic changes in his arm and chest pain or any cardiac symptoms. Not think he needs troponins. Urinalysis is normal not consistent with infection. Chart review shows that patient's previously been in the hospital his blood sugar is usually above 150 to the low 200s. I suspect that blood sugar in the 70s is actually relative hypoglycemia for him. He attempted ambulation in the ER was quite weak per nursing staff. Spoke with patient and his daughter on thephone who is concerned about his ability to live at home alone and thinks that he needs assisted living. Patient is amenable to admission at this time. His daughter also states he does not check his blood sugar at home but continues to give himself his insulin. Case discussed with hospitalist, Dr. Kapoor for admission. Patient remained hemodynamically stable in emergency room. He started on D5 drip for concern of further hypoglycemia/relative hypoglycemia. Abdominal series does show constipation. No other acute process. Chest x-ray reviewed is normal. Imaging reviewed by myself as well as radiology. Lab Data Attestation: I reviewed the patient's lab results. Labs: Laboratory Results - last 24 hr 12/02/24 12/02/24 12/02/24 10:21 10:36 11:06 WBC 9.6 RBC 3.13 L Hgb 9.8 L Hct 29.5 L MCV 94.2 H MCH 31.3 MCHC 33.2 RDW Std Deviation 46.7 H RDW Coeff of Elmer 13.8 Plt Count 173 MPV 10.2 Sodium 140 Potassium 4.3 Chloride 102 Carbon Dioxide 25.5 Anion Gap 12 BUN 33 H Creatinine 2.18 H Estim Creat Clear Calc 28.53 L Est GFR (MDRD) Non-Af 29 L BUN/Creatinine Ratio 15.3 Glucose 77 Calcium 8.7 Urine Color Yellow Urine Clarity Clear Urine pH 7.0 Ur Specific Queen 1.010 Urine Protein Negative Urine Glucose (UA) Normal Urine Ketones Negative Urine Occult Blood Negative Urine Nitrite Negative Urine Bilirubin Negative Urine Urobilinogen Normal Ur Leukocyte Esterase Negative Urine RBC 0 SEEN Urine WBC 0 SEEN Ur Squamous Epith Cells 0 SEEN Urine Bacteria 0 SEEN Urine Mucus 0 SEEN POC Glucose 74 12/02/24 12:44 WBC RBC Hgb Hct MCV MCH MCHC RDW Std Deviation RDW Coeff of Elmer Plt Count MPV Sodium Potassium Chloride Carbon Dioxide Anion Gap BUN Creatinine Estim Creat Clear Calc Est GFR (MDRD) Non-Af BUN/Creatinine Ratio Glucose Calcium Urine Color Urine Clarity Urine pH Ur Specific Queen Urine Protein Urine Glucose (UA) Urine Ketones Urine Occult Blood Urine Nitrite Urine Bilirubin Urine Urobilinogen Ur Leukocyte Esterase Urine RBC Urine WBC Ur Squamous Epith Cells Urine Bacteria Urine Mucus POC Glucose 78 Radiography Diagnostic Testing: Clinical Impression(s) from Imaging Studies Brain CT 12/02/24 11:22 IMPRESSION: 1. Generalized brain atrophy. 2. Small vessel ischemic/degenerative changes. 3. No acute intracranial hemorrhage, midline shift or mass effect. If symptoms persist, further evaluation with MRI is recommended. Reading Location: [facility] Acute Abdomen Series 12/02/24 11:30 IMPRESSION: No acute cardiopulmonary process identified radiographically. The patient appears to be mildly constipated. There is a mild ileus without evidence of bowel obstruction. Reading Location: [facility] Rhythm Strip Rhythm Strip: Sinus Rhythm Rate: 69 Ectopy: None EKG Initial EKG: Attestation: I personally reviewed and interpreted this EKG as follows: Interpretation: Sinus Rhythm Comments: Normal sinus rhythm with first-degree AV block at a rate of 69 bpm Parable 250 Voltage criteria for LVH Left axis deviation Normal intervals Normal ST segments Prior EKG tracings: available for review Prior: Unchanged Management Discussion w/another healthcare provider: Hospitalist Discharge Plan Triage Chief Complaint: Confusion ED Provider: Tsering Emanuel Dx/Rx/DC Orders Clinical Impression: Episode of confusion, Hypoglycemia, Constipation, Insulin dependent diabetes mellitus Prescriptions: No Action ascorbate calcium (vitamin C) 500 mg tablet 500 mg PO DAILY polysaccharide iron complex [Ferrex 150] 150 mg iron capsule 150 mg PO DAILY ranolazine 500 mg tablet extended release 12 hr 500 mg PO BID Qty: 60 11RF famotidine 40 MG tablet 40 mg PO DAILY gabapentin 300 mg capsule 300 mg PO BID glimepiride 4 mg Tablet 4 mg PO DAILY levothyroxine 25 mcg Tablet 25 mcg PO DAILY furosemide 40 mg Tablet 40 mg PO BIDLX 30 Days Qty: 60 0RF atorvastatin 40 mg Tablet 40 mg PO QHS 30 Days Qty: 30 0RF carvedilol 6.25 mg Tablet 6.25 mg PO BID 30 Days Qty: 60 0RF amlodipine 5 mg Tablet 5 mg PO DAILY 30 Days Qty: 30 0RF tamsulosin 0.4 mg Capsule 0.4 mg PO DAILY@1730 30 Days Qty: 30 0RF nitroglycerin 0.4 mg Tablet, Sublingual 0.4 mg sublingual Q5M PRN (Reason: Cardiac/Chest Pain) Qty: 30 2RF aspirin 81 mg Tablet,Delayed Release (Dr/Ec) 81 mg PO BREAKFAST Qty: 30 2RF insulin degludec [Tresiba FlexTouch U-200] 200 unit/mL (3 mL) insulin pen 40 unit subcut BID clopidogrel 75 mg tablet 75 mg PO DAILY trazodone 50 mg tablet 25 mg PO QHS Primary Care Provider: Kain Bhakta Chi Referrals: Kain Bhakta Chi, MD [Primary Care Provider] - Print Language: [place] Leonean Disposition Disposition: Acute Care Hospital [facility] What to do if you have Problems For any increased pain, shortness of breath, bleeding, nausea or vomiting, chestpain, or any unexpected problems, contact your Primary Care Provider. Call [facility] ([phone]) or report to the closest Emergency Room. Call 911 if necessary. 12/02/24 1331 <Electronically signed by Tsering Emanuel DO> Cosigner Signature (if applicable): CC: Dr. Kain Bhakta MD ~ Signed [facility] Work Phone: Evaluation noteNo assessment information available [facility] Work Phone: Evaluation note* Diagnosis Onset Date Resolution Status Elevated d-dimer acute Hypoglycemia acute Hypoxia acute Pneumonia acute [facility] Work Phone: Evaluation note* Diagnosis Onset Date Resolution Status Acute respiratory failure with hypoxemia acute COPD exacerbation acute COVID-19 acute Elevated d-dimer acute Hypoglycemia acute Hypoxia acute Pneumonia acute Pneumonia due to COVID-19 virus acute [facility] Work Phone: Evaluation note* Diagnosis Onset Date Resolution Status Pneumonia due to COVID-19 virus acute [facility] Work Phone: Evaluation note* Diagnosis Onset Date Resolution Status Chronic hypoxemic respiratory failure chronic COPD (chronic obstructive pulmonary disease) [facility] Work Phone: Evaluation note* Diagnosis Onset Date Resolution Status Chronic hypoxemic respiratory failure chronic COPD (chronic obstructive pulmonary disease) chronic Chronic hypoxemic respiratory failure chronic COPD (chronic obstructive pulmonary disease) [facility] Work Phone: History and physical note Author Afsaneh Kapoor [facility] Note Date/Time December 02, 2024 1:43 pm [facility] Medical Records Department [address] [place] [address] H&P Exam - Hospitalist 12/02/24 1317 MR#: [id number] Acct: [id number] Name: JUNIOR BOONE Rep #:[id number] : 1940 84 From: Afsaneh Kapoor MD PCP: Dr. Kain Bhakta MD Status:ADM I N Location: [place] [address] HPI - General General Date of Admission: 12/02/24 Date of Service: 12/02/24 Chief Complaint: Confusion, transient, low BS. HPI Narrative The patient is an 84 y/o M w/ PMHx: CAD s/p PCI, Former tobacco use, BPH with obstructive pathology, CKD stage IV, Chronic macrocytic anemia/iron deficiency anemia, GERD, HFpEF, HTN, HLD, Hypothyroidism, COPD with Chronic Hypoxic Respiratory Failure (2-3L NC), Diabetes mellitus type II with chronic neuropathy, Obesity who presents to [facility] ED on 12/02/2024 with history of an episode of confusion reportedly not recognizing his neighborsand unable to perform normal routine activities noted to be home alone and unclear exact onset time prompting EMS call with noted blood sugar 74 with improvement to 89 with mentation and confusion improving with patient reporting were calling being mildly confused but no other complaints aside from mild dizziness in the morning but this is completely resolved in addition to mild constipation over the last 2 to 3 days with no abdominal pain associated with recent evaluation in the ED 11/10/2024 secondary mechanical fall with unremarkable evaluation as time but given episode prompted ED evaluation. Workupin the ED included T98, heart rate 73, BP 136/55, respiratory rate 18, under percent on 3 L nasal cannula with most recent repeat evaluation T98, heart rate 70, BP 160/87, respiratory rate 18, 97% on 3 L nasal cannula, CBC with WC 9.6, Hgb 9.8, MCV 94.2, platelet 173 without differential, BMP with BUN/creatinine 33/2.18, GFR 29, urinalysis unremarkable, CT of the brain with generalized brainatrophy with small vessel ischemic/degenerative changes with no acute intracranial findings, acute abdominal series with a moderate to large amount ofstool and gas present throughout the mildly distended colon otherwise no acute findings, EKG with sinus rhythm with first-degree AV block with no acute evidence of ischemia. In the ED patiet attempted ambulation with notable debility, unsafe attempts. Family requesting consideration of assisted living. Per family patient does not check his BS at home. In the ED given persistent hypoglycemia, patient started on judicious IV dextrose supplementation. 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 Vitamin D deficiency GERD (gastroesophageal reflux disease) Heart failure with preserved ejection fraction Diabetic polyneuropathy Hypothyroidism CKD (chronic kidney disease), stage IV Atherosclerotic cardiovascular disease COPD (chronic obstructive pulmonary disease) Chronic hypoxemic respiratory failure Pneumonia due to COVID-19 virus Hypertension PVCs (premature ventricular contractions) Anemia Obesity (BMI 30.0-34.9) Diabetes mellitus, type II HLD (hyperlipidemia) Home Medications ?Medication ?Instructions ?Recorded ?Last Taken ?Type famotidine 40 mg tablet 40 mg PO DAILY GERD 07/13/18 Unknown History glimepiride 4 mg tablet 4 mg PO DAILY DIABETES 06/23 Unknown History levothyroxine 25 mcg tablet 25 mcg PO DAILY THYROID 03/23/24 History ascorbate calcium (vitamin C) 500 500 mg PO DAILY SUPP LEMENT 03/09/24 03/23/24 History mg tablet gabapentin 300 mg capsule 300 mg PO BID NEUROPATHY 11/21/24 History polysaccharide iron complex 150 mg 150 mg PO DAILY SUP PLEMENT 03/09/24 Unknown History iron capsule (Ferrex) aspirin 81 mg tablet,delayed 81 mg PO BREAKFAST heart #30 tabs 03/23/24 03/23/24 Rx release nitroglycerin 0.4 mg sublingual 0.4 mg sublingual Q5M PRN 03/23/24 03/16/24 Rx tablet Cardiac/Chest Pain #30 tabs amlodipine 5 mg tablet 5 mg PO DAILY 30 days #30 ta bs 04/07/24 Unknown Rx atorvastatin 40 mg tablet 40 mg PO QHS 30 days #30 tab s 04/07/24 11/20/24 Rx carvedilol 6.25 mg tablet 6.25 mg PO BID 30 days #60 t abs 04/07/24 11/21/24 Rx furosemide 40 mg tablet 40 mg PO BIDLX 30 days #60 t abs 04/07/24 11/21/24 Rx tamsulosin 0.4 mg capsule 0.4 mg PO DAILY@1730 30 days #30 04/07/24 11/20/24 Rx caps ranolazine 500 mg tablet,extended 500 mg PO BID #60 ta bs 09/13/24 11/21/24 Rx release,12 hr clopidogrel 75 mg tablet 75 mg PO DAILY 11/21/24 Unkn own History insulin degludec 200 unit/mL (3 40 unit subcut BID 12/09 Unknown History mL) subcutaneous pen (Tresiba FlexTouch U-200 insulin) trazodone 50 mg tablet 25 mg PO QHS 11/21/24 History Allergy/AdvReac Type Severity Reaction Status Date / Time No Known Allergies Allergy Verified 12/02/24 10:16 Family History Brother Diabetes Mother Diabetes Sister Diabetes Father Heart disease Surgical History Stented coronary artery (03/16/24) History of appendectomy Social History household members: none Smoking Status: Former smoker alcohol intake: never substance use type: does not use ROS ROS Narrative Admission Review of Systems: CONSTITUTIONAL: No weight loss, fever, chills, + weakness or fatigue. HEENT: + Lightheadedness, transient. Eyes: No visual loss, blurred vision, double vision or yellow sclerae. Ears, Nose, Throat: No hearing loss, sneezing, congestion, runny nose or sore throat. SKIN: No rash or itching, lesions, wounds. CARDIOVASCULAR: No chest pain, chest pressure or chest discomfort, palpitations,edema, orthopnea, syncopal events. RESPIRATORY: No shortness of breath, cough or sputum, wheezing, hemoptysis. GASTROINTESTINAL: No anorexia, nausea, vomiting or diarrhea, abdominal pain, melena, BRBPR. GENITOURINARY: No dysuria, frequency, urgency or retention. NEUROLOGICAL: + Chronic neuropathy, frequent falls, episode of dizziness. No headache, syncope, paralysis, ataxia, focal weakness, change in bowel or bladdercontrol, seizure. MUSCULOSKELETAL: + muscle, back pain, joint pain or stiffness. HEMATOLOGIC: + Chronic anemia, history of easy bleeding/bruising. LYMPHATICS: No enlarged nodes. No history of splenectomy. PSYCHIATRIC: No history of depression or anxiety. + Chronic insomnia. ENDOCRINOLOGIC: No reports of sweating, cold or heat intolerance. No polyuria orpolydipsia. ALLERGIES: No history of asthma, hives, eczema or rhinitis. Vital Signs Vital Signs Vital Signs: 12/02/24 10:16 12/02/24 10:19 12/02/24 11:28 Temperature 98.0 F 98.0 F Temperature Source Oral Oral Pulse Rate 73 68 69 Respiratory Rate 18 18 Blood Pressure 136/55 H 136/55 H 159/96 H Blood Pressure Mean 82 82 117 Pulse Ox 100 100 98 Oxygen Delivery Method Nasal Cannula Room Air Oxygen Flow Rate (L/min) 3 12/02/24 11:29 12/02/24 12:00 12/02/24 13:00 Temperature 98.0 F 98 F 98.1 F Temperature Source Oral Oral Oral Pulse Rate 69 70 71 Respiratory Rate 18 18 18 Blood Pressure 159/96 H 160/87 H 162/82 H Blood Pressure Mean 117 111 108 Pulse Ox 98 97 100 Oxygen Delivery Method Nasal Cannula Nasal Cannula Nasal Cannula Oxygen Flow Rate (L/min) 3 12/02/24 13:09 Temperature 98.1 F Temperature Source Pulse Rate 71 Respiratory Rate 18 Blood Pressure 162/82 H Blood Pressure Mean 108 Pulse Ox 100 Oxygen Delivery Method Oxygen Flow Rate (L/min) Weight Weight: 229 lb 11.2 oz Body Mass Index (BMI) 37.0 Physical Exam Narrative Physical Examination: General: Awake, alert, oriented to self, place and recent meds, notes feeling improved, states he was mildly dizzy this morning and did feel confused, feels back to his baseline, remains cooperative, seated upright in ED bed, eating, no acute distress, dextrose IV fluids being initiated. Skin: Normal color, normal turgor, no icterus, no cyanosis except for bilateral lower extremity venous stasis skin changes, occasional stage ecchymoses and abrasions. HEENT: AT/NC, EOMI, PERRLA, MMM, unable to discern any carotid bruits, difficultto discern JVD given thickened neck. Lungs: Diminished, greater bases, poor effort, no rales, ronchi or wheezing. Heart: Regular rate and rhythm; no gallop, rub audible. Abdomen: Soft, obese, NTTP, mildly hyperactive BS, no appreciated distention or HSM however habitus makes evaluation difficult. Extremities: No cyanosis, no clubbing, pedal to mid castrejon 1-2+ pitting edema which he notes is chronic, see skin. Neurological: Patient awake, alert, oriented as noted, cognitive function suspect return to baseline intact; pupils equally reactive to light and accommodation, cranial nerves grossly normal, moving all 4 extremities, no focaldeficits, strength moderately globally decreased, improving. Psychiatric: Affect appears fatigued otherwise normal, no acute evidence of depressive or anxiety feelings. Results Lab / Micro Data 12/02/24 10:36 12/02/24 10:36 Labs: Laboratory Results - last 24 hr 12/02/24 10:21: POC Glucose 74 12/02/24 10:36: WBC 9.6, RBC 3.13 L, Hgb 9.8 L, Hct 29.5 L, MCV 94.2 H, MCH 31.3, MCHC 33.2, RDW Std Deviation 46.7 H, RDW Coeff of Elmer 13.8, Plt Count 173,MPV 10.2, Sodium 140, Potassium 4.3, Chloride 102, Carbon Dioxide 25.5, Anion Gap 12, BUN 33 H, Creatinine 2.18 H, Estim Creat Clear Calc 28.53 L, Est GFR (MDRD) Non-Af 29 L, BUN/Creatinine Ratio 15.3, Glucose 77, Calcium 8.7 12/02/24 11:06: Urine Color Yellow, Urine Clarity Clear, Urine pH 7.0, Ur Specific Queen 1.010, Urine Protein Negative, Urine Glucose (UA) Normal, UrineKetones Negative, Urine Occult Blood Negative, Urine Nitrite Negative, Urine Bilirubin Negative, Urine Urobilinogen Normal, Ur Leukocyte Esterase Negative, Urine RBC 0 SEEN, Urine WBC 0 SEEN, Ur Squamous Epith Cells 0 SEEN, Urine Bacteria 0 SEEN, Urine Mucus 0 SEEN 12/02/24 12:44: POC Glucose 78 Rhythm Strip Rhythm Strip: Sinus Rhythm Rate: 69 Ectopy: None Imaging Radiology Impression Brain CT 12/02/24 11:22 IMPRESSION: 1. Generalized brain atrophy. 2. Small vessel ischemic/degenerative changes. 3. No acute intracranial hemorrhage, midline shift or mass effect. If symptoms persist, further evaluation with MRI is recommended. Reading Location: [facility] Acute Abdomen Series 12/02/24 11:30 IMPRESSION: No acute cardiopulmonary process identified radiographically. The patient appears to be mildly constipated. There is a mild ileus without evidence of bowel obstruction. Reading Location: [facility] Assessment & Plan Assessment/Plan (1) Encephalopathy acute: PLAN: Plan The patient is an 84 y/o M w/ PMHx: CAD s/p PCI, Former tobacco use, BPH with obstructive pathology, CKD stage IV, Chronic macrocytic anemia/iron deficiency anemia, GERD, HFpEF, HTN, HLD, Hypothyroidism, COPD with Chronic Hypoxic Respiratory Failure (2-3L NC), Diabetes mellitus type II with chronic neuropathy, Obesity who presents to [facility] ED on 12/02/2024 with history of an episode of confusion reportedly not recognizing his neighborsand unable to perform normal routine activities noted to be home alone and unclear exact onset time prompting EMS call with noted blood sugar 74 with improvement to 89 with mentation and confusion improving with patient reporting were calling being mildly confused but no other complaints aside from mild dizziness in the morning but this is completely resolved in addition to mild constipation over the last 2 to 3 days with no abdominal pain associated with recent evaluation in the ED 11/10/2024 secondary mechanical fall with unremarkable evaluation as time but given episode prompted ED evaluation. #1. Acute Metabolic Encephalopathy secondary to Acute Hypoglycemia with underlying Diabetes mellitus type II w/ chronic diabetic chronic neuropathy, suspect noncompliance potentially recurrent medication errors with adult failureto thrive, debility: Will admit to PCU, will continue IV dextrose supplementation, will hold oral home regimen, holding also scheduled long-actinginsulin, pending hemoglobin A1c requested, will allow broadened regular diet, maintain on serial q 1 hour accu checks until assure BS improving, nutrition consulted for education, procalcitonin requested, PT/OT/CM consulted for discharge planning. Family is very concerned that patient is making medication errors and having potentially recurrent episodes of hypoglycemia with consideration for potential placement need. #2. Acute on chronic constipation: Plain film of the abdomen with significant evidence of a moderate to large amount of stool and gas present throughout the mildly distended colon, will initiate bowel regimen, monitor I's and O's. #3. CAD: Status post PCI, will continue aspirin/Plavix, statin, Coreg, not on KOBY/ARB likely secondary to underlying renal disease. #4. Chronic COPD with chronic hypoxic respiratory failure 2 to 3 L nasal cannula baseline: Will maintain on home oxygen supplementation, hold home inhalers in the interim maintain on ATC duonebs, PRN albuterol, HOB, IS parameters. #5. HFpEF: Will continue aspirin/Plavix, statin, Coreg, Ranexa, not on KOBY/ARB likely secondary to underlying renal disease, continue Lasix regimen, monitor weights. Judiciously hydrating with dextrose solution, monitor for overload. #6. Chronic Kidney Disease Stage IV per GFR trending: Admission BUN/Cr 33/2.18,GFR 29, baseline renal function primarily 1.9-2.3 more recently, most recently noted 11/21/2024 creatinine 2.32, repeat BMP in AM. #7. Chronic macrocytic anemia/iron deficiency anemia: Admission hemoglobin 9.8,MCV 94.2 only mildly elevated, baseline hemoglobin more recently 8-9 range, continue to trend. Continue iron supplementation. #8. Hypothyroidism: Will continue patient on levothyroxine regimen. #9. Hypertension: Continue home regimen including amlodipine, Coreg, Lasix withhold parameters as needed, PRN hydralazine. #10. Hyperlipidemia: Will continue patient home statin therapy. #11. BPH with obstructive pathology: Will continue patient home Flomax regimen,monitor for retention. #12. Former tobacco use: Encourage continued tobacco cessation. #13. GERD: Continue patient on famotidine regimen. #14. DVT prophylaxis: Heparin. #15. CODE status: Patient denies having healthcare power of employee benefits attorney or living will set up but he knows his daughter would be his medical decision-maker if necessary. Discussed CODE status at length including difference between FULL code, DNR-CCA and DNR-CC status. Following discussions about the differences in these status, requested Full Code status. He very specifically states however he would not want anything long-term including any long-term intubation especially if there is no quality of life. Advanced Care Planning Face to Face Time: 16 minutes. Charges/Coding Visit Charges Inpatient E&M: 89286 Init Hosp L3 Procedures Hospitalists Procedures: 28013 Advncd Care Plan 30 Min 12/02/24 1343 <Electronically signed by Afsaneh Kapoor MD> Cosigner Signature (if applicable): CC: Dr. Afsaneh Kapoor MD; Dr. Kain Bhakta MD~ Signed [facility] Work Phone: Hospital Discharge instructionsAdditional Instructions Follow-up with Dr. Bhakta's office next several days. You have a chronic anemia or low blood count. They should recheck that in 1 to 2 weeks. Return if feeling worse. Your labs chest x-ray and EKG were all chronic values that you have had before. There is no reason to admit you at this time. But make sure you follow-up with your primary care physician's office. I spoke to Dr. Bhakta. They will follow-up with you also.[facility] Work Phone: Hospital Discharge instructionsAdditional Instructions Discharge 12/25/2024, [facility], intermediate, Medicaid pending.[facility] Work Phone: Reason for referral (narrative)No reason for referral information availableWCleveland Clinic Med[facility] Work Phone: Summary Purpose Family History Relationship Condition Age at Onset Recorded Date/T coco Unknown Family History?- Unknown July 132018 5:51pm Family History?- Unknown July 132018 5:51pm Relationship Condition Age at Onset Recorded Date/T coco Unknown Family History?- Unknown July 132018 4:51pm Family History?- Unknown July 132018 4:51pm Relationship Condition Age at Onset Recorded Date/T coco Not Specified Diabetes mellitus Unknown Cardiac disease Unknown Relationship Condition Age at Onset Recorded Date/T coco brother Diabetes mellitus Unknown mother Diabetes mellitus Unknown sister Diabetes mellitus Unknown father Cardiac disease Unknown Advance Directives Advance Directive Response Recorded Date/ Time Advance Directives No January 12:21pm Living Will Yes January 01 9 8:18am Power of Experimental Welder Yes January 01, 019 8:18am Advance Directive Response Recorded Date/ Time Name of Medical Power of Experimental Welder Mariely Mcghee, daughter February 22, 2022 4:01pm Advance Directives No January 11:21am Living Will Yes February 22 4:01pm Power of Experimental Welder Yes February 22 022 4:01pm Advance Directive Response Recorded Date/ Time Name of Medical Power of Experimental Welder Mariely Mcghee, daughter February 22, 2022 4:01pm Name of Medical Power of Experimental Welder NEENA MCGHEE -DAUGHTER April 18, 2022 5:54pm Advance Directives No January 11:21am Living Will Yes April 18 5:54pm Power of Experimental Welder Yes April 18, 2022 5:54pm Advance Directive Response Recorded Date/ Time Name of Medical Power of Experimental Welder Mariely Mcghee, daughter February 22, 2022 4:01pm Name of Medical Power of Experimental Welder neena mcghee (daughter) April 18, 2022 10:31pm Advance Directives No January 11:21am Living Will Yes April 18 10:31pm Power of Experimental Welder Yes April 18, 2022 10:31pm Advance Directive Response Recorded Date/ Time Name of Medical Power of Experimental Welder neena mcghee (daughter) April 18, 2022 10:31pm Advance Directives No January 11:21am Living Will Yes April 18 10:31pm Power of Experimental Welder Yes April 18, 2022 10:31pm Advance Directive Response Recorded Date/ Time Name of Medical Power of Experimental Welder neena mcghee (daughter) April 18, 2022 11:31pm Advance Directives No January 12:21pm Living Will Yes April 18 11:31pm Power of Experimental Welder Yes April 18, 2022 11:31pm Advance Directive Response Recorded Date/ Time Advance Directives No January 11:21am Living Will Yes April 18 10:31pm Power of Experimental Welder Yes April 18, 2022 10:31pm Advance Directive Response Recorded Date/ Time Advance Directives No January 12:21pm Living Will Yes April 18 11:31pm Power of Experimental Welder Yes April 18, 2022 11:31pm Advance Directive Response Recorded Date/ Time Advance Directives No January 12:21pm Advance Directive Response Recorded Date/ Time Do you have a Healthcare Pow er of Experimental Welder? Yes November 10, 2024 6:39pm Name of Medical Power of Experimental Welder Neenakristan Mcghee November 10, 2024 6:39pm Advance Directives No January 12:21pm Advance Directive Response Recorded Date/ Time Do you have a Healthcare Pow er of Experimental Welder? Yes November 10, 2024 6:39pm Name of Medical Power of Experimental Welder Neenakristan Mcghee November 10, 2024 6:39pm Do you have a Healthcare Pow er of Experimental Welder? No November 21, 2024 12:53pm Advance Directives No January 12:21pm Advance Directive Response Recorded Date/ Time Do you have a Healthcare Pow er of Experimental Welder? Yes November 10, 2024 6:39pm Name of Medical Power of Experimental Welder Neena Shahid November 10, 2024 6:39pm Do you have a Healthcare Pow er of Experimental Welder? No December 02, 2024 10:19am Do you have a Healthcare Pow er of Experimental Welder? No November 21, 2024 12:53pm Advance Directives No January 12:21pm Advance Directive Response Recorded Date/ Time Do you have a Healthcare Pow er of Experimental Welder? Yes November 10, 2024 6:39pm Name of Medical Power of Experimental Welder Neenakristan Mcghee November 10, 2024 6:39pm Do you have a Healthcare Pow er of Experimental Welder? No December 02, 2024 2:03pm Do you have a Healthcare Pow er of Experimental Welder? No November 21, 2024 12:53pm Do you have a Healthcare Pow er of Experimental Welder? Yes December 06, 2024 4:06pm Name of Medical Power of Experimental Welder Neena Mcghee, daughter December 06, 2024 4:06pm Advance Directives No January 12:21pm Advance Directive Response Recorded Date/ Time Do you have a Healthcare Pow er of Experimental Welder? No December 02, 2024 1:03pm Do you have a Healthcare Pow er of Experimental Welder? Yes December 06, 2024 3:06pm Name of Medical Power of Experimental Welder Neena Mcghee, daughter December 06, 2024 3:06pm Advance Directives No January 11:21am Chief Complaint and Reason for Visit Chief Complaint Admit Date 5 M FU September 13, 2024 9:4 2am RT BRUIT September 29, 2024 10:03 am FALL November 10, 2024 6:29 pm Reason for Visit Admit Date Essential (primary) hypertension August 172024 9:42am Right carotid bruit September 13, 2024 9:4 2am Anemia September 13, 2024 9:4 2am HLD (hyperlipidemia) September 13, 2024 9: 42am Stented coronary artery September 13, 2024 9:42am Chief Complaint FINGER PAIN LOSS OF APPETITE Chief Complaint FINGER PAIN LOSS OF APPETITE Chills (without fever) HYPOGLYCEMIA; HYPOXIA; KALYN Reason for Visit Elevated d-dimer Hypoglycemia Hypoxia Pneumonia Chief Complaint FINGER PAIN LOSS OF APPETITE Chills (without fever) HYPOGLYCEMIA; HYPOXIA; KALYN HYPOGLYCEMIA; HYPOXIA; KALYN HYPOGLYCEMIA; HYPOXIA; KALYN HYPOGLYCEMIA; HYPOXIA; KALYN HYPOGLYCEMIA; HYPOXIA; KALYN HYPOGLYCEMIA; HYPOXIA; KALYN HYPOGLYCEMIA; HYPOXIA; KALYN HYPOGLYCEMIA; HYPOXIA; KALYN HYPOGLYCEMIA; HYPOXIA; KALYN HYPOGLYCEMIA; HYPOXIA; KALYN Reason for Visit Acute respiratory fa ilure with hypoxemia COPD exacerbation COVID-19 Elevated d-dimer Hypoglycemia Hypoxia Pneumonia Pneumonia due to COVID-19 virus Chief Complaint FINGER PAIN LOSS OF APPETITE Chills (without fever) HYPOGLYCEMIA; HYPOXIA; KALYN HYPOGLYCEMIA; HYPOXIA; KALYN HYPOGLYCEMIA; HYPOXIA; KALYN HYPOGLYCEMIA; HYPOXIA; KALYN HYPOGLYCEMIA; HYPOXIA; KALYN HYPOGLYCEMIA; HYPOXIA; KALYN HYPOGLYCEMIA; HYPOXIA; KALYN HYPOGLYCEMIA; HYPOXIA; KALYN HYPOGLYCEMIA; HYPOXIA; KALYN HYPOGLYCEMIA; HYPOXIA; KALYN Reason for Visit Pneumonia due to COV ID-19 virus Chief Complaint LOSS OF APPETITE Chills (without fever) HYPOGLYCEMIA; HYPOXIA; KALYN HYPOGLYCEMIA; HYPOXIA; KALYN HYPOGLYCEMIA; HYPOXIA; KALYN HYPOGLYCEMIA; HYPOXIA; KALYN HYPOGLYCEMIA; HYPOXIA; KALYN HYPOGLYCEMIA; HYPOXIA; KALYN HYPOGLYCEMIA; HYPOXIA; KALYN HYPOGLYCEMIA; HYPOXIA; KALYN HYPOGLYCEMIA; HYPOXIA; KALYN HYPOGLYCEMIA; HYPOXIA; KALYN Continuation of care Reason for Visit Pneumonia due to COV ID-19 virus Chief Complaint LOSS OF APPETITE Chills (without fever) HYPOGLYCEMIA; HYPOXIA; KALYN HYPOGLYCEMIA; HYPOXIA; KLAYN HYPOGLYCEMIA; HYPOXIA; KALYN HYPOGLYCEMIA; HYPOXIA; KALYN HYPOGLYCEMIA; HYPOXIA; KALYN HYPOGLYCEMIA; HYPOXIA; KALYN HYPOGLYCEMIA; HYPOXIA; KALYN HYPOGLYCEMIA; HYPOXIA; KALYN HYPOGLYCEMIA; HYPOXIA; KALYN HYPOGLYCEMIA; HYPOXIA; KALYN Continuation of care CKD3 Reason for Visit Pneumonia due to COV ID-19 virus Chief Complaint Chills (without feve r) HYPOGLYCEMIA; HYPOXIA; KALYN HYPOGLYCEMIA; HYPOXIA; KALYN HYPOGLYCEMIA; HYPOXIA; KALYN HYPOGLYCEMIA; HYPOXIA; KALYN HYPOGLYCEMIA; HYPOXIA; KALYN HYPOGLYCEMIA; HYPOXIA; KALYN HYPOGLYCEMIA; HYPOXIA; KAYLN HYPOGLYCEMIA; HYPOXIA; KALYN HYPOGLYCEMIA; HYPOXIA; KALYN HYPOGLYCEMIA; HYPOXIA; KALYN Continuation of care CKD3 Reason for Visit Pneumonia due to COV ID-19 virus Chief Complaint HYPOGLYCEMIA; HYPOXI A; KALYN HYPOGLYCEMIA; HYPOXIA; KALYN HYPOGLYCEMIA; HYPOXIA; KALYN HYPOGLYCEMIA; HYPOXIA; KALYN HYPOGLYCEMIA; HYPOXIA; KALYN HYPOGLYCEMIA; HYPOXIA; KALYN HYPOGLYCEMIA; HYPOXIA; KALYN HYPOGLYCEMIA; HYPOXIA; KALYN HYPOGLYCEMIA; HYPOXIA; KALYN HYPOGLYCEMIA; HYPOXIA; KALYN Continuation of care CKD3 Reason for Visit Pneumonia due to COV ID-19 virus Chief Complaint COPD Reason for Visit Chronic hypoxemic re spiratory failure COPD (chronic obstructive pulmonary disease) Chief Complaint COPD Chronic respiratory failure with hypoxia Chronic respiratory failure with hypoxia Chronic respiratory failure with hypoxia Chronic respiratory failure with hypoxia Reason for Visit Chronic hypoxemic re spiratory failure COPD (chronic obstructive pulmonary disease) Chief Complaint COPD Chronic respiratory failure with hypoxia Chronic respiratory failure with hypoxia Chronic respiratory failure with hypoxia Chronic respiratory failure with hypoxia 6 wk FU Reason for Visit Chronic hypoxemic re spiratory failure COPD (chronic obstructive pulmonary disease) Chronic hypoxemic respiratory failure COPD (chronic obstructive pulmonary disease) Chief Complaint Admit Date NEED LAB ORDER July 05, 2024 9:27am 5 M FU September 13, 2024 9:4 2am RT BRUIT September 29, 2024 10:03 am Chief Complaint Admit Date 5 M FU September 13, 2024 9:4 2am RT BRUIT September 29, 2024 10:03 am FALL November 10, 2024 6:29 pm abn labs November 21, 2024 12:27 pm Chief Complaint Admit Date 5 M FU September 13, 2024 9:4 2am RT BRUIT September 29, 2024 10:03 am FALL November 10, 2024 6:29 pm abn labs November 21, 2024 12:27 pm 3 M FU November 30, 2024 9:20 am Reason for Visit Admit Date Essential (primary) hypertension August 172024 9:42am Right carotid bruit September 13, 2024 9:4 2am Anemia September 13, 2024 9:4 2am HLD (hyperlipidemia) September 13, 2024 9: 42am Stented coronary artery September 13, 2024 9:42am Edema November 30, 2024 9:20 am Essential (primary) hypertension November 302024 9:20am Right carotid bruit November 30, 2024 9:20 am Anemia November 30, 2024 9:20 am HLD (hyperlipidemia) November 30, 2024 9:2 0am Stented coronary artery November 30, 2024 9:20am Chief Complaint Admit Date 5 M FU September 13, 2024 9:4 2am RT BRUIT September 29, 2024 10:03 am FALL November 10, 2024 6:29 pm abn labs November 21, 2024 12:27 pm 3 M FU November 30, 2024 9:20 am ENCEPHALOPATHY, HYPOGLYCEMIA December 02, 2024 1:18pm Reason for Visit Admit Date Essential (primary) hypertension August 172024 9:42am Right carotid bruit September 13, 2024 9:4 2am Anemia September 13, 2024 9:4 2am HLD (hyperlipidemia) September 13, 2024 9: 42am Stented coronary artery September 13, 2024 9:42am Edema November 30, 2024 9:20 am Essential (primary) hypertension November 302024 9:20am Right carotid bruit November 30, 2024 9:20 am Anemia November 30, 2024 9:20 am HLD (hyperlipidemia) November 30, 2024 9:2 0am Stented coronary artery November 30, 2024 9:20am Encephalopathy acute December 02, 2024 1:1 8pm Chief Complaint Admit Date 5 M FU September 13, 2024 9:4 2am RT BRUIT September 29, 2024 10:03 am FALL November 10, 2024 6:29 pm abn labs November 21, 2024 12:27 pm 3 M FU November 30, 2024 9:20 am ENCEPHALOPATHY, HYPOGLYCEMIA December 02, 2024 1:18pm ENCEPHALOPATHY, HYPOGLYCEMIA December 03, 2024 7:21am ENCEPHALOPATHY, HYPOGLYCEMIA December 04, 2024 6:50am ENCEPHALOPATHY, HYPOGLYCEMIA December 05, 2024 4:23pm ENCEPHALOPATHY & HYPOGLYCEMIA December 05, 2024 6:20pm Reason for Visit Admit Date Essential (primary) hypertension August 172024 9:42am Right carotid bruit September 13, 2024 9:4 2am Anemia September 13, 2024 9:4 2am HLD (hyperlipidemia) September 13, 2024 9: 42am Stented coronary artery September 13, 2024 9:42am Edema November 30, 2024 9:20 am Essential (primary) hypertension November 302024 9:20am Right carotid bruit November 30, 2024 9:20 am Anemia November 30, 2024 9:20 am HLD (hyperlipidemia) November 30, 2024 9:2 0am Stented coronary artery November 30, 2024 9:20am Encephalopathy acute December 02, 2024 1:1 8pm BPH (benign prostatic hyperplasia) December 05, 2024 6:20pm Chronic heart failure with p reserved ejection fraction (HFpEF) December 05, 2024 6:20pm Coronary artery disease December 05, 2024 6:20pm Debility December 05, 2024 6:20 pm Diabetic polyneuropathy December 05, 2024 6:20pm Encephalopathy December 05, 2024 6:20 pm Hypoglycemia December 05, 2024 6:20 pm Hypothyroidism December 05, 2024 6:20 pm Morbid obesity December 05, 2024 6:20 pm Type 2 diabetes mellitus with hyperglyce adolfo December 05, 2024 6:20pm Chronic hypoxemic respiratory failure Ju ly 2024 6:20pm CKD (chronic kidney disease), stage IV J shasta 2024 6:20pm COPD (chronic obstructive pulmonary dise ase) December 05, 2024 6:20pm HLD (hyperlipidemia) December 05, 2024 6:2 0pm Chief Complaint Admit Date 3 M FU November 30, 2024 9:20 am ENCEPHALOPATHY, HYPOGLYCEMIA Lelia 18th, 2025 1:18pm ENCEPHALOPATHY, HYPOGLYCEMIA December 03, 2024 7:21am ENCEPHALOPATHY, HYPOGLYCEMIA December 04, 2024 6:50am ENCEPHALOPATHY, HYPOGLYCEMIA December 05, 2024 4:23pm ENCEPHALOPATHY & HYPOGLYCEMIA December 05, 2024 6:20pm LAB WORK January 04, 2025 5: 00am CP ([facility]) March 08, 2025 1 :30pm Reason for Visit Admit Date Edema November 30, 2024 9:20 am Essential (primary) hypertension November 302024 9:20am Right carotid bruit November 30, 2024 9:20 am Anemia November 30, 2024 9:20 am HLD (hyperlipidemia) November 30, 2024 9:2 0am Stented coronary artery November 30, 2024 9:20am Encephalopathy acute December 02, 2024 1:1 8pm BPH (benign prostatic hyperplasia) December 05, 2024 6:20pm Chronic heart failure with p reserved ejection fraction (HFpEF) December 05, 2024 6:20pm Coronary artery disease December 05, 2024 6:20pm Debility December 05, 2024 6:20 pm Diabetic polyneuropathy December 05, 2024 6:20pm Hypothyroidism December 05, 2024 6:20 pm Morbid obesity December 05, 2024 6:20 pm Type 2 diabetes mellitus with hyperglyce adolfo December 05, 2024 6:20pm Chronic hypoxemic respiratory failure Ju ly 2024 6:20pm CKD (chronic kidney disease), stage IV J shasta 2024 6:20pm COPD (chronic obstructive pulmonary dise ase) December 05, 2024 6:20pm HLD (hyperlipidemia) December 05, 2024 6:2 0pm Encephalopathy December 05, 2024 6:20 pm Hypoglycemia December 05, 2024 6:20 pm Chest pain March 08, 2025 1 :30pm Chronic heart failure with p reserved ejection fraction (HFpEF) March 08, 2025 1:30pm Coronary artery disease March 08 1:30pm Essential (primary) hypertension March 08, 2025 1:30pm Additional Source Comments (unrecognized sect ion and content) No Status Records FoundNo Status Records Found INFORMATION SOURCE (unrecogn ized section and content) DATE CREATED AUTHOR 01/11/2018 [facility] DATE CREATED AUTHOR AUTHOR'S SHADY ATION 03/18/2025 [facility] Goals (unrecognized section and content) Goals may be documented in a n alternate sectionGoals may be documented in an alternate sectionGoals may be documented in an alternate sectionGoals may be documented in an alternate sectionGoals may be documented in an alternate sectionGoals may be documented in an alternate sectionGoals may be documented in an alternate sectionGoals may be documented in an alternate sectionGoals may be documented in an alternate sectionGoals may be documented in an alternate sectionGoals may be documented in an alternate sectionGoals may be documented in an alternate sectionGoals may be documented in an alternate sectionGoals may be documented in an alternate sectionGoals may be documented in an alternate sectionGoals may be documented in an alternate sectionGoals may be documented in an alternate section Care Teams (unrecognized sec tion and content) Team Status: Active Member Role Status Dates Dr. Kain Bhakta MD Family Provider Active Dr. Kain Bhakta MD Primary Care Provider Active Team Status: Active Member Role Status Dates Dr. Kain Bhakta MD Primary Care Provider Active Dr. Dayday Murphy , Emergency Provider Active Dr. Yifan Diamond MD Admit Provider, Attending Provider, Other Provider Active Team Status: Active Member Role Status Dates Dr. Kain Bhakta MD Primary Care Provider Active Dr. Dayday Murphy , DO Emergency Provider Active Dr. Yifan Diamond MD Admit Provider, Other Provide r Active Dr. Alen Rojas , DO Attending Provider, Other Pro vider Active Dr. Markell Olson MD Other Provider Active Dr. Simba Bustos MD Other Provider Active Dr. Hunter Levy , DO Other Provider Active Laverne Zurita ENTERPRISE APPLICATION ANALYST, ENTERPRISE APPLICATION ANALYST-C Other Provider Active Dr. Milton Cordova MD Other Provider Active Team Status: Active Member Role Status Dates Dr. Kain Bhakta MD Primary Care Provider Active Dr. Dayday Murphy , DO Emergency Provider Active Dr. Yifan Diamond MD Admit Provider, Other Provide r Active Dr. Alen Rojas , DO Referring Provider, Other Pro vider Active Dr. Markell Olson MD Other Provider Active Dr. Hunter Levy , DO Attending Provider, Other Provide r Active Dr. Simba Bustos MD Other Provider Active Dr. Milton Cordova MD Other Provider Active Laverne Zurita ENTERPRISE APPLICATION ANALYST, ENTERPRISE APPLICATION ANALYST-C Other Provider Active Team Status: Active Member Role Status Dates Dr. Kain Bhakta MD Primary Care Provider Active Dr. Dayday Murphy , DO Emergency Provider Active Dr. Yifan Diamond MD Admit Provider, Other Provide r Active Dr. Alen Rojas , DO Attending Provider, Other Pro vider Active Dr. Markell Olson MD Other Provider Active Dr. Hunter Levy , DO Other Provider Active Dr. Simba Bustos MD Other Provider Active Dr. Milton Cordova MD Other Provider Active Laverne Zurita ENTERPRISE APPLICATION ANALYST, ENTERPRISE APPLICATION ANALYST-C Other Provider Active Team Status: Active Member Role Status Dates Dr. Kain Bhakta MD Primary Care Provider Active Dr. Curt Liu MD Attending Provider Active Dr. Yifan Diamond MD Referring Provider Active Team Status: Active Member Role Status Dates Dr. Kain Bhakta MD Primary Care Provider Active Dr. Dayday Murphy , DO Emergency Provider Active Dr. Yifan Diamond MD Admit Provider, Other Provide r Active Dr. Markell Olson MD Other Provider Active Dr. Hunter Levy , DO Other Provider Active Dr. Simba Bustos MD Other Provider Active Dr. Milton Cordova MD Other Provider Active Laverne Zurita ENTERPRISE APPLICATION ANALYST, ENTERPRISE APPLICATION ANALYST-C Other Provider Active Dr. Amy Becker MD Attending Provider, Other Provid er Active Dr. Alen Rojas , DO Other Provider Active Team Status: Active Member Role Status Dates Dr. Kain Bhakta MD Primary Care Provider Active Dr. Dyaday Murphy , DO Emergency Provider Active Dr. Yifan Diamond MD Admit Provider, Other Provide r Active Dr. Markell Olson MD Attending Provider, Other Provid er Active Dr. Hunter Levy , DO Other Provider Active Dr. Simba Bustos MD Other Provider Active Dr. Milton Cordova MD Other Provider Active Laverne Zurita NP, ENTERPRISE APPLICATION ANALYST-C Other Provider Active Dr. Amy Becker MD Other Provider Active Dr. Alen Rojas , DO Other Provider Active Team Status: Active Member Role Status Dates Dr. Kain Bhakta MD Primary Care Provider Active Dr. Dayday Murphy , DO Emergency Provider Active Dr. Yifan Diamond MD Admit Provider, Other Provide r Active Dr. Markell Olson MD Other Provider Active Dr. Hunter Levy , DO Other Provider Active Dr. Simba Bustos MD Attending Provider, Other Pro vider Active Dr. Milton Cordova MD Other Provider Active Laverne Zurita ENTERPRISE APPLICATION ANALYST, ENTERPRISE APPLICATION ANALYST-C Other Provider Active Dr. Amy Becker MD Other Provider Active Dr. Alen Rojas , Other Provider Active Team Status: Inactive Member Role Status Dates Dr. Kain Bhakta MD Primary Care Provider, Attending Provider Active Team Status: Inactive Member Role Status Dates Dr. Kain Bhakta MD Primary Care Provider Active Donald Francis MD Attending Provider, Emergency Provid er Active Team Status: Inactive Member Role Status Dates Dr. Kain Bhakta MD Primary Care Provi leonarda, Attending Provider, Referring Provider Active Team Status: Inactive Member Role Status Dates Dr. Kain Bhakta MD Primary Care Provider Active Dr. Dayday Murphy , Emergency Provider Active Dr. Yifan Diamond MD Admit Provider, Other Provide r Active Dr. Markell Olson MD Other Provider Active Dr. Hunter Levy DO Other Provider Active Dr. Simba Bustos MD Other Provider Active Dr. Milton Cordova MD Other Provider Active Laverne Zurita ENTERPRISE APPLICATION ANALYST, ENTERPRISE APPLICATION ANALYST-C Other Provider Active Dr. Amy Becker MD Attending Provider Active Dr. Alen Rojas , Other Provider Active Team Status: Inactive Member Role Status Dates Dr. Kain Bhakta MD Primary Care Provider Active Kain Bhakta MD Attending Provider Active Team Status: Active Member Role Status Dates Dr. Kain Bhakta MD Primary Care Provider, Attending Provider Active Team Status: Active Member Role Status Dates Dr. Kain Bhakta MD Primary Care Provider Active Kain Bhakta MD Attending Provider Active Team Status: Active Member Role Status Dates Dr. Kain Bhakta MD Primary Care Provi leonarda, Attending Provider, Referring Provider Active Team Status: Inactive Member Role Status Dates Dr. Kain Bhakta MD Primary Care Provider Active Dr. Keshia Cottrell DO Attending Provider, Referring P melony Active Team Status: Inactive Member Role Status Dates Dr. Kain Bhakta MD Primary Care Provider Active Kain FUENTES MD Attending Provider Active Team Status: Inactive Member Role Status Dates Dr. Kain Bhakta MD Primary Care Provider, Attending Provider Active Dr. Keshia Cottrell DO Other Provider Active Team Status: Inactive Member Role Status Dates Dr. Kain Bhakta MD Primary Care Provider, Referring Provider Active Dr. Hunter Levy DO Attending Provider Active Team Status: Active Member Role Status Dates Dr. Kain Bhakta MD Primary Care Provider Active Dr. Hunter Levy DO Referring Provider, Other Provide r Active Dr. Markell Olson MD Attending Provider Active Team Status: Active Member Role Status Dates Dr. Kain Bhakta MD Primary Care Provider Active Dr. Hunter Levy DO Other Provider Active Dr. Markell Olson MD Attending Provider Active Team Status: Inactive Member Role Status Dates Dr. Kain Bhakta MD Primary Care Provider Active Dr. Hunter Levy DO Attending Provider, Referring Pro vider Active Team Status: Active Member Role Status Dates Dr. Kain Bhakta MD Primary Care Provider Active Dr. Hunter Levy DO Attending Provider Active Team Status: Inactive Member Role Status Dates Dr. Kain Bhakta MD Primary Care Provider, Referring Provider Active Laverne Zurita ENTERPRISE APPLICATION ANALYST, ENTERPRISE APPLICATION ANALYST-C Attending Provider Active Team Status: Inactive Member Role Status Dates Dr. Kain Bhakta MD Primary Care Provider Active Dr. Hunter Levy DO Attending Provider Active Team Status: Active Member Role Status Dates Dr. Kain Bhakta MD Primary Care Provider Active Team Status: Inactive Member Role Status Dates Dr. Kain Bhakta MD Primary Care Provider Active Start: July 05, 2024 End: July 05, 2024 Dr. Keshia Cottrell DO Attending Provider Active Start: July 05, 2024 End: July 05, 2024 Dr. Keshia Cottrell DO Referring Provider Active Start: July 05, 2024 End: July 05, 2024 Team Status: Inactive Member Role Status Dates Dr. Kain Bhakta MD Primary Care Provider Active Start: September 13, 2024 End: September 13, 2024 Dr. Kain Bhakta MD Referring Provider Active Start: September 13, 2024 End: September 13, 2024 Daisha Nelson PA, PA Attending Provider Active Start: September 13, 2024 End: September 13, 2024 Team Status: Inactive Member Role Status Dates Dr. Kain Bhakta MD Primary Care Provider Active Start: September 29, 2024 End: September 29, 2024 Daisha Nelson PA, PA Attending Provider Active Start: September 29, 2024 End: September 29, 2024 Dr. Daisha North MD Referring Provider Active Start: September 29, 2024 End: September 29, 2024 Team Status: Active Member Role Status Dates Dr. Kain Bhakta MD Primary Care Provider Active Start: September 29, 2024 Dr. Kalen Cr MD Attending Provider Active S tart: September 29, 2024 Team Status: Active Member Role Status Dates Dr. Kain Bhakta MD Primary Care Provider Active Start: September 29, 2024 Dr. Kalen Cr MD Attending Provider Active S tart: September 29, 2024 Daisha RAMOS PA Referring Provider Active Start: September 29, 2024 Team Status: Inactive Member Role Status Dates Dr. Kain Bhakta MD Primary Care Provider Active Start: November 10, 2024 End: November 10, 2024 Donald Francis MD Emergency Provider Active Star t: November 10, 2024 End: November 10, 2024 Team Status: Active Member Role/Relationship Status Dates Dr. Kain Bhakta MD Primary Care Provider Active Team Status: Inactive Member Role/Relationship Status Dates Dr. Kain Bhakta MD Primary Care Provider Active Start: September 13, 2024 End: September 13, 2024 Dr. Kain Bhakta MD Referring Provider Active Start: September 13, 2024 End: September 13, 2024 Daisha RAMOS PA Attending Provider Active Start: September 13, 2024 End: September 13, 2024 Team Status: Inactive Member Role/Relationship Status Dates Dr. Kain Bhakta MD Primary Care Provider Active Start: September 29, 2024 End: September 29, 2024 Daisha RAMOS PA Attending Provider Active Start: September 29, 2024 End: September 29, 2024 Dr. Daisha North MD Referring Provider Active Start: September 29, 2024 End: September 29, 2024 Team Status: Active Member Role/Relationship Status Dates Dr. Kain Bhakta MD Primary Care Provider Active Start: September 29, 2024 Dr. Kalen Cr MD Attending Provider Active S tart: September 29, 2024 Daisha RAMOS PA Referring Provider Active Start: September 29, 2024 Team Status: Inactive Member Role/Relationship Status Dates Dr. Kain Bhakta MD Primary Care Provider Active Start: November 10, 2024 End: November 10, 2024 Donald Francis MD Attending Provider Active Star t: November 10, 2024 End: November 10, 2024 Donald Francis MD Emergency Provider Active Star t: November 10, 2024 End: November 10, 2024 Team Status: Active Member Role/Relationship Status Dates Dr. Kain Bhakta MD Primary Care Provider Active Start: November 21, 2024 Dr. Kain Bhakta MD Attending Provider Active Start: November 21, 2024 Team Status: Inactive Member Role/Relationship Status Dates Dr. Kain Bhakta MD Primary Care Provider Active Start: November 21, 2024 End: November 21, 2024 Dr. Trae Madsen DO Emergency Provider Active Start: November 21, 2024 End: November 21, 2024 Team Status: Inactive Member Role/Relationship Status Dates Dr. Kain Bhakta MD Primary Care Provider Active Start: November 21, 2024 End: November 21, 2024 Dr. Kain Bhakta MD Attending Provider Active Start: November 21, 2024 End: November 21, 2024 Team Status: Inactive Member Role/Relationship Status Dates Dr. Kain Bhakta MD Primary Care Provider Active Start: November 21, 2024 End: November 21, 2024 Dr. Trae Madsen DO Attending Provider Active Start: November 21, 2024 End: November 21, 2024 Dr. Trae Madsen DO Emergency Provider Active Start: November 21, 2024 End: November 21, 2024 Team Status: Inactive Member Role/Relationship Status Dates Dr. Kain Bhakta MD Primary Care Provider Active Start: November 30, 2024 End: November 30, 2024 Dr. Kain Bhakta MD Referring Provider Active Start: November 30, 2024 End: November 30, 2024 Daisha Nelson PA, PA Attending Provider Active Start: November 30, 2024 End: November 30, 2024 Team Status: Active Member Role/Relationship Status Dates Dr. Kain Bhakta MD Primary Care Provider Active Start: December 02, 2024 Dr. Tsering Emanuel DO Emergency Provider Active Start: December 02, 2024 Dr. Afsaneh Kapoor MD Admit Provider Active St art: December 02, 2024 Dr. Afsaneh Kapoor MD Attending Provider Active Start: December 02, 2024 Dr. Afsaneh Kapoor MD Other Provider Active St art: December 02, 2024 Team Status: Inactive Member Role/Relationship Status Dates Dr. Kain Bhakta MD Primary Care Provider Active Start: December 02, 2024 End: December 05, 2024 Dr. Tsering Emanuel DO Emergency Provider Active Start: December 02, 2024 End: December 05, 2024 Dr. Afsaneh Kapoor MD Admit Provider Active St art: December 02, 2024 End: December 05, 2024 Dr. Afsaneh Kapoor MD Other Provider Active St art: December 02, 2024 End: December 05, 2024 Dr. Nora Ramirez MD Attending Provider Active Start: December 02, 2024 End: December 05, 2024 Dr. Nora Ramirez MD Other Provider Active St art: December 02, 2024 End: December 05, 2024 Team Status: Active Member Role/Relationship Status Dates Dr. Kain Bhakta MD Primary Care Provider Active Start: December 03, 2024 Dr. Tsering Emanuel DO Emergency Provider Active Start: December 03, 2024 Dr. Afsaneh Kapoor MD Admit Provider Active St art: December 03, 2024 Dr. Afsaneh Kapoor MD Attending Provider Active Start: December 03, 2024 Dr. Afsaneh Kapoor MD Other Provider Active St art: December 03, 2024 Team Status: Active Member Role/Relationship Status Dates Dr. Kain Bhakta MD Primary Care Provider Active Start: December 04, 2024 Dr. Tsering Emanuel DO Emergency Provider Active Start: December 04, 2024 Dr. Afsaneh Kapoor MD Admit Provider Active St art: December 04, 2024 Dr. Afsaneh Kapoor MD Attending Provider Active Start: December 04, 2024 Dr. Afsaneh Kapoor MD Other Provider Active St art: December 04, 2024 Team Status: Active Member Role/Relationship Status Dates Dr. Kain Bhakta MD Primary Care Provider Active Start: December 05, 2024 Dr. Tsering Emanuel DO Emergency Provider Active Start: December 05, 2024 Dr. Afsaneh Kapoor MD Admit Provider Active St art: December 05, 2024 Dr. Afsaneh Kapoor MD Other Provider Active St art: December 05, 2024 Dr. Nora Ramirez MD Attending Provider Active Start: December 05, 2024 Dr. Nora Ramirez MD Other Provider Active St art: December 05, 2024 Team Status: Inactive Member Role/Relationship Status Dates Dr. Kain Bhakta MD Primary Care Provider Active Start: December 05, 2024 End: December 25, 2024 Dr. Kain Bhakta MD Admit Provider Active Star t: December 05, 2024 End: December 25, 2024 Dr. Kain Bhakta MD Attending Provider Active Start: December 05, 2024 End: December 25, 2024 Team Status: Active Member Role/Relationship Status Dates Dr. Kain Bhakta MD Primary care physician Active Team Status: Inactive Member Role/Relationship Status Dates Dr. Kain Bhakta MD Primary care physician Active Start: November 30, 2024 End: November 30, 2024 Dr. Kain Bhakta MD Referring Provider Active Start: November 30, 2024 End: November 30, 2024 Daisha Nelson PA, PA Attending physician Active Start: November 30, 2024 End: November 30, 2024 Team Status: Inactive Member Role/Relationship Status Dates Dr. Kain Bhakta MD Primary care physician Active Start: December 02, 2024 End: December 05, 2024 Dr. Tsering Emanuel DO Emergency Department Physician Active Start: December 02, 2024 End: December 05, 2024 Dr. Afsaneh Kapoor MD Admitting physician Active Start: December 02, 2024 End: December 05, 2024 Dr. Afsaneh Kapoor MD Nurse Practitioner Active Start: December 02, 2024 End: December 05, 2024 Dr. Nroa Ramirez MD Attending physician Active Start: December 02, 2024 End: December 05, 2024 Dr. Nora Ramirez MD Nurse Practitioner Active Start: December 02, 2024 End: December 05, 2024 Team Status: Active Member Role/Relationship Status Dates Dr. Kain Bhakta MD Primary care physician Active Start: December 03, 2024 Dr. Tsering Emanuel DO Emergency Department Physician Active Start: December 03, 2024 Dr. Afsaneh Kapoor MD Admitting physician Active Start: December 03, 2024 Dr. Afsaneh Kapoor MD Attending physician Active Start: December 03, 2024 Dr. Afsaneh Kapoor MD Nurse Practitioner Active Start: December 03, 2024 Team Status: Active Member Role/Relationship Status Dates Dr. Kain Bhakta MD Primary care physician Active Start: December 04, 2024 Dr. Tsering Emanuel DO Emergency Department Physician Active Start: December 04, 2024 Dr. Afsaneh Kapoor MD Admitting physician Active Start: December 04, 2024 Dr. Afsaneh Kapoor MD Attending physician Active Start: December 04, 2024 Dr. Afsaneh Kapoor MD Nurse Practitioner Active Start: December 04, 2024 Team Status: Active Member Role/Relationship Status Dates Dr. Kain Bhakta MD Primary care physician Active Start: December 05, 2024 Dr. Tsering Emanuel DO Emergency Department Physician Active Start: December 05, 2024 Dr. Afsaneh Kapoor MD Admitting physician Active Start: December 05, 2024 Dr. Afsaneh Kapoor MD Nurse Practitioner Active Start: December 05, 2024 Dr. Nora Ramirez MD Attending physician Active Start: December 05, 2024 Dr. Nora Ramirez MD Nurse Practitioner Active Start: December 05, 2024 Team Status: Inactive Member Role/Relationship Status Dates Dr. Kain Bhakta MD Primary care physician Active Start: December 05, 2024 End: December 25, 2024 Dr. Kain Bhakta MD Admitting physician Active Start: December 05, 2024 End: December 25, 2024 Dr. aKin Bhakta MD Attending physician Active Start: December 05, 2024 End: December 25, 2024 Team Status: Active Member Role/Relationship Status Dates Dr. Kain Bhakta MD Primary care physician Active Start: January 04, 2025 Geo FUENTES MD Attending physician Active Start: January 04, 2025 Team Status: Inactive Member Role/Relationship Status Dates Dr. Kain Bhakta MD Primary care physician Active Start: March 08, 2025 End: March 08, 2025 Dr. Kain Bhakta MD Referring Provider Active Start: March 08, 2025 End: March 08, 2025 RACHEL Gastelum Attending physician Active S tart: March 08, 2025 End: March 08, 2025 FOR RECORDS PERTAINING TO PATIENTS WHO ARE [...] BE BASED ON THE PRIMARY CLINICAL RECORDS. [facility] [employer] [facility]. provides no warranty or guarantee of the accuracy or completeness of information in this document.
[2025-04-05 08:59] LABS: Hematocrit 35.1 % (40-54); Hemoglobin 11.1 g/dL (13.0-16.5); Mean Corp Hgb Conc 31.6 g/dL (32-36); Mean Corpuscular Volume 97.0 fL (80-94); Mean Platelet Vol. 10.6 fl (6.2-12.0); Platelet Count 214 K/mm3 (150-450); RBC Distribution Width CV 13.8 % (11.6-14.6); RBC Distribution Width SD 49.0 fl (35.1-43.9); Red Blood Count 3.62 M/mm3 (4.6-6.2); White Blood Count 7.8 K/mm3 (4.4-11.0)
[2025-04-05 09:23] LABS: Anion Gap 9 (5-15); BUN 27 mg/dL (4-19); BUN/Creat Ratio 13.9 RATIO (10-20); Calcium,Total 8.9 mg/dL (7.6-11.0); Carbon Dioxide 24.0 mmol/L (21.0-32.0); Chloride 106 mmol/L (98-108); Cholesterol 197 mg/dL (<=200); Glucose 153 mg/dL (70-99); Low Density Lipoprotein Calc. 137 mg/dL; Potassium 4.6 mmol/L (3.3-5.1); Triglycerides 115 mg/dL; Very Low Density Lipoprotein 23 mg/dL (5-40); cholesterol:hdl ratio screen 5.00
== END ==
LOC: OLS.WCC 05:00
PROVIDERS: PCP Family Medicine Geriatric Medicine; Visit Provider Family Medicine
DX: I11.0 Hypertensive heart disease with heart failure (principal); J44.9 Chronic obstructive pulmonary disease, unspecified; E11.9 Type 2 diabetes mellitus without complications; E78.5 Hyperlipidemia, unspecified; I50.30 Unspecified diastolic (congestive) heart failure
CPT/HCPCS: 36415; 80048; 80061; 83036; 84443; 85027